=== PATIENT | male | born 1945 | race Hispanic/Latino ===

== ENCOUNTER 2018-09-06 07:39 | Emergency (ER) | payer OTHER ==
[2018-09-06] MEDS ORDERED: IPRATROPIUM BROM 0.5MG/2.5ML ONE (08:06)
[2018-09-06] MEDS ORDERED: predniSONE 20 MG TAB ONE (08:06)
[2018-09-06] MEDS ORDERED: ALBUTEROL 2.5 MG/3 ML NEB SOL ONE (08:06)
[2018-09-06 08:25] LABS: Basophils % 0.4 % (0-1.3); Eosinophils % 1.7 % (0-4.4); Lymphocytes % 24.7 % (15.3-44.8); MPV 9.2 fL (7.6-11.3); Monocytes % 11.8 % (3.3-12.3); Protime INR 1.23; RBC Red Blood Cell Count 5.21 M/uL (4.33-5.43)
[2018-09-06 08:38] LABS: ALT/SGPT 73 U/L (12-78); AST/SGOT 46 U/L (15-37); Albumin 3.5 g/dL (3.4-5.0); Alkaline Phosphatase 69 U/L (45-117); BUN Blood Urea Nitrogen 9 mg/dL (7-18); Bicarbonate 29 mmol/L (21-32); Bilirubin Direct 0.3 mg/dL (0-0.2); Bilirubin Total 0.9 mg/dL (0.2-1.0); Glucose Level 154 mg/dL (74-106); Magnesium 1.8 mg/dL (1.8-2.4); NT PRO-BNP 717 pg/mL (<125); Protein, Total 8.1 g/dL (6.4-8.2); Sodium Level 139 mmol/L (136-145); Troponin (Emerg Dept Use Only) < 0.02 ng/mL (0.0-0.045)
[2018-09-06] MEDS ORDERED: HYDROCODONE/CHLORPHEN 5 ML/OSYR ONE (09:59)
[2018-09-06] MEDS ORDERED: LEVALBUTEROL 1.25 MG/3 ML NEB ONE (09:59)
[2018-09-06] MEDS ORDERED: CEFTRIAXONE/SWI 1gm 1 GM/10 ML SYR ONE (10:08)
--- NOTE | 2018-09-06 10:16 | ER ---
Nurse's Notes [facility] Name: Juan Nelson Age: 73 yrs Sex: Male : 1945 Arrival Date: 09/06/2018 Time: 07:40 Bed 8 Private MD: Panda Whitmore E Diagnosis: Chronic obstructive pulmonary disease with (acute) exacerbation Presentation: 09/06 07:50 Presenting complaint: Productive cough and SOB x 3-[address] Whitmore yesterday, hb on Zithromax and prednisone day 2 for bronchitis. Transition of care: patient was not received from another setting of care. Onset of symptoms was September 06, 2018. Risk Assessment: Do you want to hurt yourself or someone else? Patient reports no desire to harm self or others. Care prior to arrival: None. 07:50 Method Of Arrival: Ambulatory hb 07:50 Acuity: KRISTEL 2 hb 07:50 Initial Sepsis Screen: Does the patient meet any 2 criteria? RR > 20 per min. Yes Does sv the patient have a suspected source of infection? No. Patient's initial sepsis screen is negative. Triage Assessment: 07:50 Respiratory: the patient has moderate shortness of breath. sv Historical: - Allergies: 07:52 No Known Drug Allergies; hb - Home Meds: 07:52 amlodipine 5 mg tab 1 tab once daily [Active]; carvedilol 25 mg Oral tab 1 tab hb [Active]; levothyroxine 100 mcg tab 1 tab once daily [Active]; metformin 500 mg Oral tab [Active]; omeprazole 20 mg Oral cpDR 1 cap once daily [Active]; paroxetine HCl 20 mg Oral tab [Active]; Ventolin Rotahaler/Rotacaps Inhl [Active]; warfarin 5 mg Oral tab [Active]; - PMHx: 07:52 Hypothyroidism; Diabetes - NIDDM; hb - PSHx: 07:52 Cholecystectomy; elbow surgery; right eye cataract; hb - Immunization history:: Adult Immunizations up to date. - Social history:: Smoking status: Patient uses tobacco products, smokes one-half pack cigarettes per day. - Ebola Screening: : No symptoms or risks identified at this time. Screenin:52 Abuse screen: Denies threats or abuse. Denies injuries from another. Nutritional hb screening: No deficits noted. Tuberculosis screening: No symptoms or risk factors identified. Fall Risk None identified. Assessment: 07:50 General: Appears in no apparent distress. uncomfortable, well developed, Behavior is sv calm, cooperative, appropriate for age. Pain: Denies pain. Neuro: Level of Consciousness is awake, alert, obeys commands, Oriented to person, place, time, situation, Moves all extremities. Full function Gait is steady. Respiratory: Airway is patent Respiratory effort is even, unlabored, Respiratory pattern is symmetrical, tachypnea Breath sounds with wheezes bilaterally. Derm: Skin is pink, warm \T\ dry. 08:23 Reassessment: Patient appears in no apparent distress at this time. Patient and/or sv family updated on plan of care and expected duration. Pain level reassessed. Patient is alert, oriented x 3, equal unlabored respirations, skin warm/dry/pink. Patient states symptoms have improved. Cardiovascular: Rhythm is atrial fibrillation. Respiratory: Airway is patent Respiratory effort is even, unlabored, Respiratory pattern is symmetrical, tachypnea Breath sounds with wheezes bilaterally. 09:19 Reassessment: Patient appears in no apparent distress at this time. Patient and/or sv family updated on plan of care and expected duration. Pain level reassessed. Patient is alert, oriented x 3, equal unlabored respirations, skin warm/dry/pink. Patient states feeling better. Patient states symptoms have improved. 10:24 Reassessment: Patient appears in no apparent distress at this time. Patient and/or sv family updated on plan of care and expected duration. Pain level reassessed. Patient is alert, oriented x 3, equal unlabored respirations, skin warm/dry/pink. Patient states feeling better. Patient states symptoms have improved. Vital Signs: 07:49 BP 143 / 73; Pulse 85; Resp 32; Pulse Ox 93% on R/A; Pain 0/10; hb 08:05 Temp 98(O); sv 09:19 BP 135 / 80; Pulse 64 MON; Resp 24; Pulse Ox 93% on R/A; sv 10:24 BP 133 / 77; Pulse 65; Resp 22; Pulse Ox 95% on R/A; sv 09:19 A fib sv ED Course: 07:40 Patient arrived in ED. sb2 07:41 Panda Whitmore MD is Private Physician. sb2 07:43 [facility] pm1 07:43 Donny Stein MD is Attending Physician. pm1 07:51 Triage completed. hb 07:52 Agueda Hernandez, RN is Primary Nurse. sv 07:52 Arm band placed on. hb 07:52 Patient has correct armband on for positive identification. Placed in gown. Bed in low hb position. Call light in reach. Side rails up X 1. 08:14 XRAY Chest (1 view) In Process Unspecified. EDMS 08:14 Flu Sent. ds4 08:14 Blood Culture Adult (2) Sent. ds4 08:14 Basic Metabolic Panel Sent. ds4 08:14 Troponin (emerg Dept Use Only) Sent. ds4 08:14 CBC with Diff Sent. ds4 08:14 LFT's Sent. ds4 08:14 Magnesium Sent. ds4 08:14 NT PRO-BNP Sent. ds4 08:15 PT-INR Sent. ds4 08:26 EKG done, by ED staff, reviewed by Donny Stein MD. em1 09:20 Awaiting radiology results. sv 10:15 Panda Whitmore MD is Referral Physician. pm1 10:25 No provider procedures requiring assistance completed. IV discontinued, intact, sv bleeding controlled, No redness/swelling at site. Pressure dressing applied. Administered Medications: 08:01 Drug: predniSONE 60 mg Route: PO; sv 08:22 Follow up: Response: No adverse reaction sv 08:02 Drug: Albuterol - atroVENT (3:1) (2.5 mg - 0.5 mg) 3 ml Route: Nebulizer; sv 08:22 Follow up: Response: No adverse reaction; Marked relief of symptoms sv 09:53 Drug: Tussionex Pennkinetic ER 5 ml Route: PO; sv 10:15 Follow up: Response: No adverse reaction sv 09:53 Drug: Xopenex 1.25 mg Route: Inhalation; sv 09:56 Drug: Rocephin 1 grams Route: IV; Rate: calculated rate; Site: left antecubital; sv 09:59 Follow up: Response: No adverse reaction; IV Status: Completed infusion; IV Intake: 10mlsv Intake: 09:59 IV: 10ml; Total: 10ml. sv Outcome: 10:16 Discharge ordered by . pm1 10:24 Discharged to home via wheelchair, with family. sv 10:24 Condition: stable 10:24 Condition: improved 10:24 Discharge instructions given to patient, family, Instructed on discharge instructions, follow up and referral plans. medication usage, Demonstrated understanding of instructions, follow-up care, medications, Prescriptions given X 2. 10:25 Patient left the ED. sv Signatures: Dispatcher [employer] EDAgueda Sosa RN RN sv Martinez, Eric em1 Marc Cervantes ds4 Silvano Beck NP [employer] pm1 Clarissa Marin RN RN hb Billeau, Sheri sb2 Corrections: (The following items were deleted from the chart) 07:53 07:50 Social history: Smoking status: Patient/guardian denies using tobacco, hb elida
--- NOTE | 2018-09-06 10:16 | EDPHYS ---
Physician Documentation [facility] Name: Juan Nelson Age: 73 yrs Sex: Male : 1945 Arrival Date: 09/06/2018 Time: 07:40 Bed 8 Private MD: Panda Whitmore E ED Physician Donny Stein HPI: 09/06 08:12 This 73 yrs old Male presents to ER via Ambulatory with complaints of pm1 Breathing Difficulty - BRONCHITIS. 08:12 The patient has shortness of breath at rest. Onset: The symptoms/episode began/occurred pm1 4 day(s) ago. Duration: The symptoms are continuous. The patient's shortness of breath is aggravated by nothing, is alleviated by nothing. Associated signs and symptoms: Pertinent positives: productive cough, Pertinent negatives: chest pain, fever, nausea, vomiting, Chills. Severity of symptoms: in the emergency department the symptoms are unchanged. The patient has not experienced similar symptoms in the past. The patient has been recently seen by a physician: the patient's primary care provider, yesterday, with similar presenting complaints, and apparently given a diagnosis of Bronchitis, was given a prescription for antibiotics, was given a prescription for prednisone 5 mg . Historical: - Allergies: 07:52 No Known Drug Allergies; hb - Home Meds: 07:52 amlodipine 5 mg tab 1 tab once daily [Active]; carvedilol 25 mg Oral tab 1 tab hb [Active]; levothyroxine 100 mcg tab 1 tab once daily [Active]; metformin 500 mg Oral tab [Active]; omeprazole 20 mg Oral cpDR 1 cap once daily [Active]; paroxetine HCl 20 mg Oral tab [Active]; Ventolin Rotahaler/Rotacaps Inhl [Active]; warfarin 5 mg Oral tab [Active]; - PMHx: 07:52 Hypothyroidism; Diabetes - NIDDM; hb - PSHx: 07:52 Cholecystectomy; elbow surgery; right eye cataract; hb - Immunization history:: Adult Immunizations up to date. - Social history:: Smoking status: Patient uses tobacco products, smokes one-half pack cigarettes per day. - Ebola Screening: : No symptoms or risks identified at this time. ROS: 08:12 Constitutional: Negative for fever, chills, and weight loss, Eyes: Negative for injury, pm1 pain, redness, and discharge, ENT: Negative for injury, pain, and discharge, Neck: Negative for injury, pain, and swelling, Cardiovascular: Negative for chest pain, palpitations, and edema. 08:12 Abdomen/GI: Negative for abdominal pain, nausea, vomiting, diarrhea, and constipation, Back: Negative for injury and pain, : Negative for injury, bleeding, discharge, and swelling, MS/Extremity: Negative for injury and deformity, Skin: Negative for injury, rash, and discoloration, Neuro: Negative for headache, weakness, numbness, tingling, and seizure. 08:12 Respiratory: Positive for cough, with yellow sputum, shortness of breath. Exam: 08:12 Constitutional: This is a well developed, well nourished patient who is awake, alert, pm1 and in no acute distress. Head/Face: Normocephalic, atraumatic. Eyes: Pupils equal round and reactive to light, extra-ocular motions intact. Lids and lashes normal. Conjunctiva and sclera are non-icteric and not injected. Cornea within normal limits. Periorbital areas with no swelling, redness, or edema. ENT: Nares patent. No nasal discharge, no septal abnormalities noted. Tympanic membranes are normal and external auditory canals are clear. Oropharynx with no redness, swelling, or masses, exudates, or evidence of obstruction, uvula midline. Mucous membranes moist. Neck: Trachea midline, no thyromegaly or masses palpated, and no cervical lymphadenopathy. Supple, full range of motion without nuchal rigidity, or vertebral point tenderness. No Meningismus. Chest/axilla: Normal chest wall appearance and motion. Nontender with no deformity. No lesions are appreciated. Cardiovascular: Regular rate and rhythm with a normal S1 and S2. No gallops, murmurs, or rubs. Normal PMI, no JVD. No pulse deficits. 08:12 Abdomen/GI: Soft, non-tender, with normal bowel sounds. No distension or tympany. No guarding or rebound. No evidence of tenderness throughout. Back: No spinal tenderness. No costovertebral tenderness. Full range of motion. Skin: Warm, dry with normal turgor. Normal color with no rashes, no lesions, and no evidence of cellulitis. MS/ Extremity: Pulses equal, no cyanosis. Neurovascular intact. Full, normal range of motion. 08:12 Respiratory: the patient does not display signs of respiratory distress, Respirations: normal, Breath sounds: wheezing: is heard diffusely. 08:12 Neuro: Orientation: is normal, Motor: is normal, moves all fours. Vital Signs: 07:49 BP 143 / 73; Pulse 85; Resp 32; Pulse Ox 93% on R/A; Pain 0/10; hb 08:05 Temp 98(O); sv 09:19 BP 135 / 80; Pulse 64 MON; Resp 24; Pulse Ox 93% on R/A; sv 10:24 BP 133 / 77; Pulse 65; Resp 22; Pulse Ox 95% on R/A; sv 09:19 A fib sv MDM: 07:43 Patient medically screened. pm1 08:19 Data reviewed: vital signs. pm1 09:46 Counseling: I had a detailed discussion with the patient and/or guardian regarding: the pm1 historical points, exam findings, and any diagnostic results supporting the discharge/admit diagnosis, lab results, radiology results, the need for outpatient follow up, to return to the emergency department if symptoms worsen or persist or if there are any questions or concerns that arise at home. 09/06 07:51 Order name: Basic Metabolic Panel; Complete Time: 08:42 pm09/06 07:51 Order name: CBC with Diff; Complete Time: 08:42 pm09/06 07:51 Order name: LFT's; Complete Time: 08:42 pm09/06 07:51 Order name: Magnesium; Complete Time: 08:42 pm09/06 07:51 Order name: NT PRO-BNP; Complete Time: 08:42 pm09/06 07:51 Order name: PT-INR; Complete Time: 08:42 pm09/06 07:51 Order name: Troponin (emerg Dept Use Only); Complete Time: 08:42 pm09/06 07:51 Order name: XRAY Chest (1 view) pm09/06 07:53 Order name: Blood Culture Adult (2) pm09/06 07:53 Order name: Flu; Complete Time: 08:42 pm1 09/06 07:51 Order name: EKG; Complete Time: 07:52 pm09/06 07:51 Order name: Cardiac monitoring; Complete Time: 08:22 pm09/06 07:51 Order name: EKG - Nurse/Tech; Complete Time: 08:14 pm1 09/06 07:51 Order name: IV Saline Lock; Complete Time: 08:14 pm1 09/06 07:51 Order name: Labs collected and sent; Complete Time: 08:14 pm1 09/06 07:51 Order name: O2 Per Protocol; Complete Time: 08:02 pm1 09/06 07:51 Order name: O2 Sat Monitoring; Complete Time: 08:02 pm1 Administered Medications: 08:01 Drug: predniSONE 60 mg Route: PO; sv 08:22 Follow up: Response: No adverse reaction sv 08:02 Drug: Albuterol - atroVENT (3:1) (2.5 mg - 0.5 mg) 3 ml Route: Nebulizer; sv 08:22 Follow up: Response: No adverse reaction; Marked relief of symptoms sv 09:53 Drug: Tussionex Pennkinetic ER 5 ml Route: PO; sv 10:15 Follow up: Response: No adverse reaction sv 09:53 Drug: Xopenex 1.25 mg Route: Inhalation; sv 09:56 Drug: Rocephin 1 grams Route: IV; Rate: calculated rate; Site: left antecubital; sv 09:59 Follow up: Response: No adverse reaction; IV Status: Completed infusion; IV Intake: 10mlsv Disposition: 11:21 Co-signature as Attending Physician, Donny Stein MD. rn Disposition: 09/06/18 10:16 Discharged to Home. Impression: Chronic obstructive pulmonary disease with (acute) exacerbation. - Condition is Stable. - Discharge Instructions: How to Use an Inhaler, Chronic Obstructive Pulmonary Disease Exacerbation. - Prescriptions for Prednisone 20 mg Oral Tablet - take 2 tablet by ORAL route once daily for 5 days; 10 tablet. Guaifenesin AC 10- 100 mg/5 mL Oral Liquid - take 10 milliliter by ORAL route every 4 hours As needed; 240 milliliter. - Medication Reconciliation Form, Thank You Letter, Antibiotic Education, Prescription Opioid Use form. - Follow up: Emergency Department; When: As needed; Reason: Worsening of condition. Follow up: Panda Whitmore MD; When: 2 - 3 days; Reason: Recheck today's complaints, Continuance of care, Re-evaluation by your physician. - Problem is new. - Symptoms have improved. Signatures: Dispatcher [employer] EDMS Agueda Hernandez RN RN sv Donny Stein MD MD rn Marinas, Patrick, [facility] [employer] [employer] pm1 Clarissa Marin RN RN hb Corrections: (The following items were deleted from the chart) 07:53 07:50 Social history: Smoking status: Patient/guardian denies using tobacco, hb hb 08:05 07:52 Chest Single View ordered. [facility] 10:25 10:16 09/06/2018 10:16 Discharged to Home. Impression: Chronic obstructive pulmonary sv disease with (acute) exacerbation. Condition is Stable. Forms are Medication Reconciliation Form, Thank You Letter, Antibiotic Education, Prescription Opioid Use. Follow up: Emergency Department; When: As needed; Reason: Worsening of condition. Follow up: Panda Whitmore; When: 2 - 3 days; Reason: Recheck today's complaints, Continuance of care, Re-evaluation by your physician. Problem is new. Symptoms have improved. pm1
[2018-09-06 10:32] VITALS: TEMP 98
[2018-09-06 10:35] VITALS: BP 133/77; O2SAT 95
--- NOTE | 2018-09-06 10:49 | RAD REPORT ---
EXAM DESCRIPTION: [place] Single View09/06/2018 8:16 am CLINICAL HISTORY: Cough COMPARISON: 2017 FINDINGS: The lungs appear clear of acute infiltrate. The heart is markedly enlarged IMPRESSION: No acute abnormalities displayed
--- NOTE | 2018-09-06 14:11 | EKG ---
Test Date: 2018-09-06 Test Time: 08:20:25 Welcome Hostess: RYAN MEASUREMENT RESULTS: Intervals: Rate: 74 WI: QRSD: 94 QT: 384 QTc: 426 [place]: P: WI: QRS: 61 T: -35 INTERPRETIVE STATEMENTS: Atrial fibrillation with premature ventricular or aberrantly conducted complexes Nonspecific ST and T wave abnormality, probably digitalis effect Abnormal ECG Compared to ECG 05/21/2017 03:50:29 Ventricular premature complex(es) now present ST (T wave) deviation now present Electronically Signed On 09-06-18 14:11:01 [employer]AMP [employer] SEW[employer] by eJr Rae
== END 2018-09-06 10:25 | disposition home or self-care (01) ==
LOC: ER 07:39
DX: J44.1 Chronic obstructive pulmonary disease with (acute) exacerbation (principal); I48.91 Unspecified atrial fibrillation; R94.31 Abnormal electrocardiogram [ECG] [EKG]; E11.9 Type 2 diabetes mellitus without complications; E03.9 Hypothyroidism, unspecified; F17.210 Nicotine dependence, cigarettes, uncomplicated; Z79.84 Long term (current) use of oral hypoglycemic drugs; Z79.01 Long term (current) use of anticoagulants; Z79.899 Other long term (current) drug therapy
CPT/HCPCS: 36415; 71045; 80048; 80076; 83735; 83880; 84484; 85025; 85610; 87040 ×2; 87804 ×2; 93005; 94640; 96374; 99285; J0696; J7512

== ENCOUNTER 2018-09-07 14:40 | Inpatient (IN) | payer OTHER ==
[2018-09-07] MEDS ORDERED: ALBUTEROL 2.5 MG/3 ML NEB SOL ONE (15:29)
[2018-09-07] MEDS ORDERED: FUROSEMIDE 20 MG/ 2ML VIAL ONE (15:29)
[2018-09-07] MEDS ORDERED: IPRATROPIUM BROM 0.5MG/2.5ML ONE (15:30)
[2018-09-07] MEDS ORDERED: NA CHLORIDE 0.9% 1,000 ML ONE (15:30)
[2018-09-07 16:06] LABS: Absolute Lymphocytes (CBC) 1.3 K/uL (0.7-4.9); Absolute Monocytes 0.9 K/uL (0.1-1.3); Absolute Neutrophil 5.3 K/uL (1.8-8.0); Basophils % 0.3 % (0-1.3); Eosinophils % 0.3 % (0-4.4); Hematocrit 47.1 % (39.6-49.0); Lymphocytes % 17.2 % (15.3-44.8); MPV 9.1 fL (7.6-11.3); Monocytes % 11.6 % (3.3-12.3); RBC Red Blood Cell Count 4.95 M/uL (4.33-5.43)
--- NOTE | 2018-09-07 16:08 | EDPHYS ---
Physician Documentation [facility] Name: Juan Nelson Age: 73 yrs Sex: Male : 1945 Arrival Date: 09/07/2018 Time: 14:42 Bed 26 Private MD: Panda Whitmore E ED Physician Donny Stein HPI: 09/07 15:38 This 73 yrs old Male presents to ER via Ambulatory with complaints of Cough, snw Shortness Of Breath. 15:38 The patient or guardian reports cough, difficulty breathing. Onset: The snw symptoms/episode began/occurred gradually, 3 day(s) ago, and became worse and became persistent. Severity of symptoms: At their worst the symptoms were moderate. Associated signs and symptoms: Pertinent positives: chest pain. The patient has experienced similar episodes in the past. The patient has been recently seen at the [facility] Emergency Department, yesterday. smokes 1 ppd. Historical: - Allergies: 15:08 No Known Allergies; hb - Home Meds: 17:48 metformin 500 mg oral tab [Active]; la1 - PMHx: 17:07 Diabetes - NIDDM; Hypothyroidism; la1 17:48 COPD; la1 - Immunization history:: Adult Immunizations up to date. - Social history:: Smoking status: Patient uses tobacco products, smokes one pack cigarettes per day. - Ebola Screening: : No symptoms or risks identified at this time. ROS: 15:38 Eyes: Negative for injury, pain, redness, and discharge, ENT: Negative for injury, snw pain, and discharge, Neck: Negative for injury, pain, and swelling, Cardiovascular: Negative for chest pain, palpitations, and edema. 15:38 Back: Negative for injury and pain, : Negative for injury, bleeding, discharge, and swelling, MS/Extremity: Negative for injury and deformity, Skin: Negative for injury, rash, and discoloration, Neuro: Negative for headache, weakness, numbness, tingling, and seizure. 15:38 Constitutional: Positive for malaise. 15:38 Respiratory: Positive for cough, shortness of breath. 15:38 Abdomen/GI: Positive for abdominal pain, of the epigastric area. Exam: 15:35 Head/Face: Normocephalic, atraumatic. Eyes: Pupils equal round and reactive to light, snw extra-ocular motions intact. Lids and lashes normal. Conjunctiva and sclera are non-icteric and not injected. Cornea within normal limits. Periorbital areas with no swelling, redness, or edema. ENT: Nares patent. No nasal discharge, no septal abnormalities noted. Tympanic membranes are normal and external auditory canals are clear. Oropharynx with no redness, swelling, or masses, exudates, or evidence of obstruction, uvula midline. Mucous membranes moist. Neck: Trachea midline, no thyromegaly or masses palpated, and no cervical lymphadenopathy. Supple, full range of motion without nuchal rigidity, or vertebral point tenderness. No Meningismus. Chest/axilla: Normal chest wall appearance and motion. Nontender with no deformity. No lesions are appreciated. 15:35 Back: No spinal tenderness. No costovertebral tenderness. Full range of motion. MS/ Extremity: Pulses equal, no cyanosis. Neurovascular intact. Full, normal range of motion. Neuro: Awake and alert, GCS 15, oriented to person, place, time, and situation. Cranial nerves II-XII grossly intact. Motor strength 5/5 in all extremities. Sensory grossly intact. Cerebellar exam normal. Normal gait. 15:35 Constitutional: The patient appears alert, anxious, uncomfortable, erythematous 15:35 Cardiovascular: Rate: normal, Rhythm: regular, Edema: is not appreciated. 15:35 Respiratory: mild respiratory distress is noted, moderate respiratory distress is noted, Respirations: intercostal retractions, shallow respirations, tachypnea, Breath sounds: wheezing: that is moderate, that is severe, is heard diffusely. 15:35 Abdomen/GI: Inspection: obese tense, Bowel sounds: diminished, Palpation: mild abdominal tenderness, in the epigastric area. 15:35 Skin: Appearance: flushing, noted on the face. Vital Signs: 15:07 BP 126 / 71; Pulse 68; Resp 24; Temp 97.8; Pulse Ox 91% on R/A; Pain 9/10; hb 15:50 BP 142 / 76; Pulse 81; Resp 30; Pulse Ox 92% on R/A; la1 16:32 BP 140 / 69; Pulse 71; Resp 18; Pulse Ox 100% on BiPAP; la1 17:09 Pulse 72; Resp 16; Pulse Ox 100% on BiPAP; la1 17:11 BP 132 / 73; Pulse 74; Resp 18; Pulse Ox 100% on BiPAP; la1 MDM: 15:10 Patient medically screened. snw 15:37 Data reviewed: vital signs, nurses notes. Data interpreted: Pulse oximetry: on room air snw is 91 %. Interpretation: hypoxia. Plan: will initiate a nebulizer treatment. ED course: PCP is Dr. Whitmore. 09/07 15:21 Order name: Basic Metabolic Panel; Complete Time: 16:33 w 09/07 15:21 Order name: Blood Culture Adult (2) w 09/07 15:21 Order name: CBC with Diff; Complete Time: 16:08 w 09/07 15:21 Order name: Ckmb; Complete Time: 16:33 w 09/07 15:21 Order name: CPK; Complete Time: 16:33 w 09/07 15:21 Order name: Lactate; Complete Time: 16:33 w 09/07 15:21 Order name: Procalcitonin; Complete Time: 16:50 09/07 15:21 Order name: Protime (+inr); Complete Time: 16:13 w 09/07 15:21 Order name: Ptt, Activated; Complete Time: 16:13 w 09/07 15:21 Order name: Troponin (emerg Dept Use Only); Complete Time: 16:33 w 09/07 15:21 Order name: Chest Single View XRAY; Complete Time: 16:15 09/07 15:52 Order name: BIPAP 09/07 15:21 Order name: Accucheck; Complete Time: 16:28 09/07 15:21 Order name: Cardiac monitoring; Complete Time: 15:38 09/07 15:21 Order name: EKG - Nurse/Tech; Complete Time: 16:28 w 09/07 15:21 Order name: IV Saline Lock - Large Bore; Complete Time: 15:38 09/07 15:21 Order name: Labs collected and sent; Complete Time: 15:38 09/07 15:21 Order name: O2 Per Protocol; Complete Time: 15:38 09/07 15:21 Order name: O2 Sat Monitoring; Complete Time: 15:38 snw Administered Medications: 15:37 Drug: NS 0.9% 1000 ml Route: IV; Rate: 70 ml/hr; Site: right antecubital; la1 17:09 Follow up: IV Status: Completed infusion la1 15:37 Drug: Lasix 20 mg Route: IVP; Site: right antecubital; la1 17:08 Follow up: Response: Adverse reaction, Physician notified la1 15:37 Drug: Albuterol - atroVENT (3:1) (2.5 mg - 0.5 mg) 3 ml Route: Nebulizer; la1 17:08 Follow up: Response: No adverse reaction; Wheezing diminished la1 17:56 Not Given (Other Intervention Used): morphine 4 mg IVP once la1 Disposition: 18:38 Co-signature as Attending Physician, Donny Stein MD. rn Disposition: 09/07/18 16:08 Hospitalization ordered by Jaswant Marr for Inpatient Admission. Preliminary diagnosis are Chronic obstructive pulmonary disease with (acute) exacerbation, Cardiomegaly. - Bed requested for Telemetry/MedSurg (Inpatient). - Status is Inpatient Admission. la1 - Condition is Stable. - Problem is chronic. - Symptoms have worsened. UTI on Admission? No Signatures: Dispatcher [employer] EDNM Christianne Ventura, FOOD ORDER DELIVERY RUNNER-C FOOD ORDER DELIVERY RUNNER-Csnw Donny Stein MD MD rn Attema, Lee, RN RN la Clarissa Marin, Rosamaria Gonzalez RN, MELVIN RN df Corrections: (The following items were deleted from the chart) 16:06 15:23 Influenza Screen (A \T\ B)+[id number] ordered. EDNM EDNM 16:49 16:08 Hospitalization Ordered by Jaswant Marr MD for Inpatient Admission. Preliminary df diagnosis is Chronic obstructive pulmonary disease with (acute) exacerbation; Cardiomegaly. Bed requested for Telemetry/MedSurg (Inpatient). Status is Inpatient Admission. Condition is Stable. Problem is chronic. Symptoms have worsened. UTI on Admission? No. snw 18:08 16:49 09/07/2018 16:08 Hospitalization Ordered by Jaswant Marr MD for Inpatient la1 Admission. Preliminary diagnosis is Chronic obstructive pulmonary disease with (acute) exacerbation; Cardiomegaly. Bed requested for Telemetry/MedSurg (Inpatient). Status is Inpatient Admission. Condition is Stable. Problem is chronic. Symptoms have worsened. UTI on Admission? No. df
--- NOTE | 2018-09-07 16:08 | ER ---
Nurse's Notes [facility] Name: Juan Nelson Age: 73 yrs Sex: Male : 1945 Arrival Date: 09/07/2018 Time: 14:42 Bed 26 Private MD: Panda Whitmore E Diagnosis: Chronic obstructive pulmonary disease with (acute) exacerbation;Cardiomegaly Presentation: 09/07 15:05 Presenting complaint: SOB and productive cough x 3-4 days. Pt was seen in ED for same hb s/s yesterday, reports SOB is worse. Transition of care: patient was not received from another setting of care. Onset of symptoms was September 07, 2018. Risk Assessment: Do you want to hurt yourself or someone else? Patient reports no desire to harm self or others. 15:05 Method Of Arrival: Ambulatory hb 15:05 Acuity: KRISTEL 2 hb 15:30 Initial Sepsis Screen: Does the patient meet any 2 criteria? RR > 20 per min. Does the la1 patient have a suspected source of infection? Yes: Productive cough/pneumonia. 15:40 Care prior to arrival: None. la1 Triage Assessment: 18:08 Respiratory: Onset: The symptoms/episode began/occurred. la1 Historical: - Allergies: 15:08 No Known Allergies; hb - Home Meds: 17:48 metformin 500 mg oral tab [Active]; la1 - PMHx: 17:07 Diabetes - NIDDM; Hypothyroidism; la1 17:48 COPD; la1 - Immunization history:: Adult Immunizations up to date. - Social history:: Smoking status: Patient uses tobacco products, smokes one pack cigarettes per day. - Ebola Screening: : No symptoms or risks identified at this time. Screenin:40 Abuse screen: Denies threats or abuse. Nutritional screening: No deficits noted. la1 Tuberculosis screening: No symptoms or risk factors identified. Fall Risk None identified. Assessment: 15:39 General: Appears uncomfortable, Behavior is calm, cooperative. Pain: Denies pain. la1 Neuro: Level of Consciousness is awake, alert, obeys commands, Oriented to person, place, time, situation. Cardiovascular: Capillary refill < 3 seconds. Cardiovascular: Heart tones S1 S2 present Rhythm is irregular. Respiratory: Airway is patent Respiratory effort is even, unlabored, Respiratory pattern is regular, symmetrical, Breath sounds are clear bilaterally. GI: No signs and/or symptoms were reported involving the gastrointestinal system. Abdomen is obese. : No signs and/or symptoms were reported regarding the genitourinary system. Vital Signs: 15:07 BP 126 / 71; Pulse 68; Resp 24; Temp 97.8; Pulse Ox 91% on R/A; Pain 9/10; hb 15:50 BP 142 / 76; Pulse 81; Resp 30; Pulse Ox 92% on R/A; la1 16:32 BP 140 / 69; Pulse 71; Resp 18; Pulse Ox 100% on BiPAP; la1 17:09 Pulse 72; Resp 16; Pulse Ox 100% on BiPAP; la1 17:11 BP 132 / 73; Pulse 74; Resp 18; Pulse Ox 100% on BiPAP; la1 ED Course: 14:42 Patient arrived in ED. sb2 14:43 Panda Whitmore MD is Private Physician. sb2 15:07 Triage completed. hb 15:07 Arm band placed on. hb 15:10 Christianne Ventura FNP-C is [facility]. snw 15:10 Donny Stein MD is Attending Physician. snw 15:10 Devaughn Sorto RN is Primary Nurse. la1 15:38 No provider procedures requiring assistance completed. Inserted saline lock: 20 gauge la1 in right antecubital area, using aseptic technique. Blood collected. 15:40 Placed in gown. Bed in low position. Call light in reach. liquor maker on. Pulse ox la1 on. NIBP on. 15:44 X-ray completed. Portable x-ray completed in exam room. Patient tolerated procedure sg4 well. 15:51 Chest Single View XRAY In Process Unspecified. EDMS 16:07 Jaswant Marr MD is Hospitalizing Provider. snw 18:07 Patient admitted, IV remains in place. la1 Administered Medications: 15:37 Drug: NS 0.9% 1000 ml Route: IV; Rate: 70 ml/hr; Site: right antecubital; la1 17:09 Follow up: IV Status: Completed infusion la1 15:37 Drug: Lasix 20 mg Route: IVP; Site: right antecubital; la1 17:08 Follow up: Response: Adverse reaction, Physician notified la1 15:37 Drug: Albuterol - atroVENT (3:1) (2.5 mg - 0.5 mg) 3 ml Route: Nebulizer; la1 17:08 Follow up: Response: No adverse reaction; Wheezing diminished la1 17:56 Not Given (Other Intervention Used): morphine 4 mg IVP once la1 Outcome: 16:08 Decision to Hospitalize by Provider. snw 18:07 Admitted to Med/surg accompanied by tech, via stretcher, room 232, with oxygen, with la1 chart. 18:07 Condition: stable 18:07 Instructed on the need for admit. 18:08 Patient left the ED. la1 Signatures: Dispatcher [employer] EDMS Christianne Ventura, WORK DISTRIBUTOR-C WORK DISTRIBUTOR-Csnw Devaughn Sorto RN RN la1 Clarissa Marin RN RN Ileana Garcia sb2 Shy Horvath sg4 Corrections: (The following items were deleted from the chart) 17:11 17:11 BP 132 / 73; Pulse 74bpm; Resp 18bpm; Pulse Ox 100% RA; la1 la1
[2018-09-07 16:10] LABS: Protime INR 1.38
--- NOTE | 2018-09-07 16:14 | RAD REPORT ---
EXAM DESCRIPTION: RAD - Chest Single View - 09/07/2018 3:51 pm CLINICAL HISTORY: Cough, shortness of breath COMPARISON: September 06 TECHNIQUE: AP portable chest image was obtained 1538 hours . FINDINGS: No new lung parenchymal process. Lung markings remain prominent. Pronounced aligns with th e cardiac silhouette has not changed. Central vasculature remains mildly prominent. No measurable ple ural effusion and no pneumothorax. No acute bony abnormality seen. No acute aortic findings suspected . IMPRESSION: Pronounced cardiomegaly with mild vascular engorgement and prominent interstitial patter n. Chest is not significantly different from prior day comparison.
[2018-09-07 16:21] LABS: BUN Blood Urea Nitrogen 15 mg/dL (7-18); Bicarbonate 30 mmol/L (21-32); CKMB Creatine Kinase MB 2.8 ng/mL (0.3-3.6); Creatine Phosphokinase 97 U/L (39-308); Glucose Level 317 mg/dL (74-106); Potassium 4.5 mmol/L (3.5-5.1); Sodium Level 137 mmol/L (136-145); Troponin (Emerg Dept Use Only) < 0.02 ng/mL (0.0-0.045)
[2018-09-07 18:22] VITALS: BMI 34.6
[2018-09-07] MEDS ORDERED: ACETAMINOPHEN 500 MG TAB PO PRN (18:28)
[2018-09-07] MEDS ORDERED: ONDANSETRON 4 MG/2 ML VIAL IV PRN (18:28)
[2018-09-07] MEDS: ALBUTEROL 2.5 MG/3 ML NEB SOL NEB SCH ×2 (20:00→20:42)
[2018-09-07] MEDS ORDERED: D50W 25 GM/50 ML SYRINGE IV PRN (20:09)
[2018-09-07] MEDS ORDERED: GLUCAGON 1 MG/VIAL IM PRN (20:09)
[2018-09-07] MEDS: IPRATROPIUM BROM 0.5MG/2.5ML NEB PRN (20:43)
[2018-09-07] MEDS: INSULIN -REGULAR HUMAN 50 UNIT/0.5 ML ML SQ SCH (21:00)
[2018-09-07] MEDS: PANTOPRAZOLE 40MG TABLET PO SCH (21:41)
[2018-09-07] MEDS: CARVEDILOL 25 MG TAB PO SCH (21:41)
[2018-09-07] MEDS: METHYLPREDNISOLONE 40 MG INJ IV SCH (21:41)
[2018-09-08] MEDS: ALBUTEROL 2.5 MG/3 ML NEB SOL NEB SCH ×6 (00:05→20:20)
[2018-09-08] MEDS: IPRATROPIUM BROM 0.5MG/2.5ML NEB PRN ×3 (00:05→08:43)
[2018-09-08] MEDS: METHYLPREDNISOLONE 40 MG INJ IV SCH ×3 (01:19→20:58)
--- NOTE | 2018-09-08 05:23 | HP ---
Date of Admission: 09/07/2018 Code Status: Full. Chief Complaint: Shortness of breath. History Of Present Illness: The patient is a 73-year-old male with past medical history of COPD; atr ial fibrillation, on Coumadin; who was in his usual state of health until 3 days prior to admission w hen the patient had a slow onset of worsening shortness of breath. He did report some cough with no significant sputum production. Denied any nausea, vomiting, fever, or chills. Did report some pleur itic-type chest pain. It should be noted that the patient is a daily smoker. The patient's symptoms are constant, moderate, and progressively worsening. Therefore, he came into the ER for further carroll luation. Upon arrival, his workup showed a normal white blood cell count. His chest x-ray showed pr onounced cardiomegaly with mild vascular engorgement and prominent interstitial pattern, not signific antly different from prior day comparison, he had been to the ER the day prior. The patient was give n breathing treatments and IV fluids as well as Lasix and then referred for admission. When seen in the ER, he was awake, alert, oriented x3, in some mild respiratory distress. The patient was on BiPA P. Past Medical History: Hypertension, hypothyroidism, hypercholesterolemia, atrial fibrillation, nonin sulin dependent diabetes. Past Surgical History: Right elbow surgery. Allergies: NO KNOWN DRUG ALLERGIES. Medications: List reviewed. Social History: The patient is a daily smoker. Uses alcohol occasionally. No illicit drug use. Th e patient is independent in his activities of daily living. The patient is , has a daughter w ho lives at home. Review of Systems: An 11-point system reviewed, negative except as per HPI. Physical Examination: Vital Signs: Blood pressure 126/71, respirations 24, pulse 68, temperature 97.8, pulse ox 91% on [place] m air. General: Awake, alert, oriented x3, elderly male, in mild respiratory distress. HEENT: Normocephalic, atraumatic. PERRLA. EOMI. Moist mucous membranes. Oropharynx is clear. Co njunctivae are anicteric. Neck: Supple. No JVD. Trachea midline. CV: S1, S2. Peripheral pulses present. No murmurs. Respiratory: Diminished breath sounds. Expiratory wheezing is present. The patient is slightly tac hypneic. No use of accessory muscles. No stridor. Gastrointestinal: Abdomen is soft, nontender, nondistended. Positive bowel sounds. No guarding or rigidity. No hepatomegaly. Extremities: No clubbing or cyanosis. The patient does have some trace pedal edema. No calf tender ness. Neuro: Cranial nerves 2 through 12 intact grossly. No focal neurological deficit. Speech is normal . No facial asymmetry. Skin: No rashes. Normal skin turgor. Psych: Deferred. Laboratory Data: WBC 7.4, H and H 15.2 and 47.1, platelets 161, neutrophils 70%. INR 1.38. Sodium 137, potassium 4.5, chloride 100, CO2 of 30, BUN 15, creatinine 0.75, glucose 317, lactate 3.5, calci um 8.8. CK 97. Troponin less than 0.02. Procalcitonin less than 0.05. Influenza screen from 09/06 was negative. Chest x-ray shows pronounced cardiomegaly with mild vascular engorgement and pro minent interstitial pattern. Chest is not significantly different from prior day comparisons. Assessment And Plan: A 73-year-old male with; 1.Acute chronic obstructive pulmonary disease exacerbation. We will start on IV steroids, breathing treatments, and supplemental oxygen. The patient is currently on BiPAP. 2.Acute respiratory distress with hypoxia. Continue BiPAP and wean as tolerated. The patient does have elevated lactate. Procalcitonin is negative. No elevated WBC. 3.Atrial fibrillation, chronic. We will continue with Coumadin and Coreg. Monitor INR. 4.Diabetes mellitus type 2, non-insulin dependent. We will continue sliding scale insulin and monit or Accu-Cheks. 5.Hypothyroidism. Continue levothyroxine. 6.Essential hypertension. We will resume home medications as appropriate. 7.Hyperlipidemia. Continue statin. 8.Obesity. 9.Gastrointestinal and deep venous thrombosis prophylaxis. The patient is already on Coumadin. We will continue to monitor INR, currently subtherapeutic. Plan: Admit the patient to Med-Surg, place as inpatient, with remote cardiac telemetry. Length of s sincere greater than 2 midnights. MAGALYS Voice ID: [id number]
[2018-09-08] MEDS: LEVOTHYROXINE SOD 0.1 MG TAB PO SCH (05:44)
[2018-09-08 06:07] LABS: Absolute Monocytes 0.2 K/uL (0.1-1.3); Absolute Neutrophil 4.2 K/uL (1.8-8.0); Basophils % 0.1 % (0-1.3); Hematocrit 44.5 % (39.6-49.0); Lymphocytes % 17.9 % (15.3-44.8); MPV 8.8 fL (7.6-11.3); Monocytes % 2.9 % (3.3-12.3); RBC Red Blood Cell Count 4.67 M/uL (4.33-5.43)
[2018-09-08 06:15] LABS: Protime INR 1.53
[2018-09-08 06:30] LABS: BUN Blood Urea Nitrogen 18 mg/dL (7-18); Bicarbonate 29 mmol/L (21-32); Glucose Level 258 mg/dL (74-106); Potassium 4.4 mmol/L (3.5-5.1); Sodium Level 138 mmol/L (136-145)
--- NOTE | 2018-09-08 07:22 | EKG ---
Test Date: 2018-09-07 Test Time: 16:22:10 Society Editor: VIDHYA MEASUREMENT RESULTS: Intervals: Rate: 70 [place]: QRSD: 98 QT: 384 QTc: 414 [place]: P: [place]: QRS: 45 T: 60 INTERPRETIVE STATEMENTS: Atrial fibrillation with premature ventricular or aberrantly conducted complexes Nonspecific ST and T wave abnormality Abnormal ECG Compared to ECG 09/06/2018 08:20:25 No significant changes Electronically Signed On 09-08-18 07:20:57 TRANSPORT SPECIALIST by Jer Rae
[2018-09-08] MEDS: PARoxetine HCl 10 MG TAB PO SCH (09:05)
[2018-09-08] MEDS: AMLODIPINE 5 MG TAB PO SCH (09:05)
[2018-09-08] MEDS: CARVEDILOL 25 MG TAB PO SCH ×2 (09:05→20:57)
[2018-09-08] MEDS: INSULIN -REGULAR HUMAN 50 UNIT/0.5 ML ML SQ SCH ×4 (09:06→20:58)
[2018-09-08] MEDS: FUROSEMIDE 40 MG/4 ML VIAL IV SCH ×2 (12:51→20:58)
--- NOTE | 2018-09-08 13:41 | ECHO ---
HEIGHT: 5 ft 5 in WEIGHT: 208 lb 0 oz DATE OF STUDY: 09/08/[address]: Jaswant Marr MD 2-DIMENSIONAL: YES M.MODE: YES DOPPLER: YES COLOR FLOW: YES TDS: YES PORTABLE: DEFINITY: BUBBLE STUDY: DIAGNOSIS: EVALUATE FOR CONGESTIVE HEART FAILURE. CARDIAC HISTORY: CATHERIZATION: NO SURGERY: NO PROSTHETIC VALVE: NO PACEMAKER: NO MEASUREMENTS (cm) DIASTOLIC (NORMALS) SYSTOLIC (NORMALS) IVSd 1.6 (0.6-1.2) LA Diam 7.0 (1.9-4.0) LVEF 55% LVIDd 4.6 (3.5-5.7) LVIDs 3.3 (2.0-3.5) %FS 28% LVPWd 1.5 (0.6-1.2) Ao Diam 3.4 (2.0-3.7) 2 DIMENSIONAL ASSESSMENT: RIGHT ATRIUM: NORMAL LEFT ATRIUM: DILATED RIGHT VENTRICLE: NORMAL LEFT VENTRICLE: LEFT VENTRICULAR HYPERTROPHY TRICUSPID VALVE: NORMAL MITRAL VALVE: NORMAL PULMONIC VALVE: NORMAL AORTIC VALVE: SLCEROSIS PERICARDIAL EFFUSION: NONE AORTIC ROOT: NORMAL LEFT VENTRICULAR WALL MOTION: NORMAL DOPPLER/COLOR FLOW: MILD MITRAL REGURGITATION AND TRICUSPID REGURGITATION. MILD PULMONARY HYPERTENSION. ESTIMATED RIGHT VENTRICULAR SYSTOLIC PRESSURE 40 mmHg. NO AORITC STENOSIS OR AORTIC REGURGITATION. COMMENTS: NORMAL LEFT VENTRICULAR EJECTION FRACTION. LEFT VENTRICULAR HYPERTROPHY. DILATED LEFT ATRIUM. AORTIC SCLEROSIS WITH NO AORTIC STENOSIS OR AORTIC REGURGITATION. MILD MITRAL REGURGITATION AND TRICUSPID REGURGITATION. MILD PULMONARY HYPERTENSION. TECHNOLOGIST: INA MARQUEZ
--- NOTE | 2018-09-08 16:56 | PN ---
Date of Progress Note: 09/08/2018 Subjective: The patient is seen and examined. Chart reviewed and case discussed with RN. Family at the bedside. Treatment plan explained. All questions answered. The patient is now tolerating bein g off the BiPAP for breakfast, however, required BiPAP throughout the night. Currently on nasal gorge christina while he eats. Medications: List reviewed. Physical Examination: Vital Signs: Temperature 97.6, heart rate 71, blood pressure 140/66, respirations 18, and O2 of 96% on 2 L via nasal cannula. General: Awake, alert, and oriented x3, elderly male, ill appearing, obese, BMI of 34.6. CV: S1 and S2, irregularly irregular. Peripheral pulses present. Respiratory: Diminished breath sounds, some wheezing heard. The patient is tachypneic. No use of a ccessory muscles. Gastrointestinal: Abdomen is soft, nontender, and nondistended. Positive bowel sounds. No guarding or rigidity. Extremities: No clubbing or cyanosis. The patient does have peripheral edema. Neurologic: Nonfocal. Laboratory Data: Sodium 138, potassium 4.4, chloride 102, CO2 of 29, BUN 18, creatinine 0.73, glucos e 258, and calcium 8.2. BNP 481. WBC 5.3, H and H of 14.7 and 44.5, platelets 147. INR 1.53. Assessment: A 73-year-old male with, 1.Acute chronic obstructive pulmonary disease exacerbation. Continue steroids and nebulizer treatme nts. The patient is still requiring BiPAP. 2.Acute respiratory failure with hypoxia. Continue BiPAP and wean as tolerated secondary to above. 3.Atrial fibrillation, chronic. Continue Coumadin and Coreg. INR is subtherapeutic. We will adjus t Coumadin dose. 4.Pulmonary edema. BNP is elevated. The patient may have congestive heart failure. He does have c ardiomegaly on chest x-ray. We will obtain echocardiogram and evaluate ejection fraction. We will h old off on any IV fluids. We will give trial of Lasix. We will continue to monitor I's and O's. 5.Diabetes mellitus type 2, non-insulin dependent with hyperglycemia. We will continue sliding scal e insulin and monitor Accu-Cheks. 6.Hypothyroidism. Continue levothyroxine. 7.Essential hypertension, stable. 8.Mixed hyperlipidemia. Continue statin. 9.Obesity, BMI of 34.6. 10.Gastrointestinal and deep venous thrombosis prophylaxis. The patient is already on Coumadin. PLAN: Obtain echocardiogram, start on diuretics, wean off steroids, likely discharge in the next 24 to 48 hours. /SERGIO Voice ID: [id number] Report ID: [id number]
[2018-09-08] MEDS ORDERED: WARFARIN SODIUM 7.5 MG TAB PO SCH (17:00)
[2018-09-08] MEDS ORDERED: WARFARIN SODIUM 5 MG TAB PO SCH (17:00)
[2018-09-08] MEDS: PANTOPRAZOLE 40MG TABLET PO SCH (20:58)
[2018-09-09] MEDS: ALBUTEROL 2.5 MG/3 ML NEB SOL NEB SCH ×5 (03:45→15:31)
[2018-09-09] MEDS: LEVOTHYROXINE SOD 0.1 MG TAB PO SCH (05:19)
[2018-09-09 06:17] LABS: Absolute Lymphocytes (CBC) 1.4 K/uL (0.7-4.9); Absolute Monocytes 1.1 K/uL (0.1-1.3); Absolute Neutrophil 8.9 K/uL (1.8-8.0); Basophils % 0.1 % (0-1.3); Hematocrit 48.6 % (39.6-49.0); Lymphocytes % 12.1 % (15.3-44.8); MPV 8.6 fL (7.6-11.3); Monocytes % 9.4 % (3.3-12.3); RBC Red Blood Cell Count 5.08 M/uL (4.33-5.43)
[2018-09-09 06:26] LABS: BUN Blood Urea Nitrogen 22 mg/dL (7-18); Bicarbonate 35 mmol/L (21-32); Glucose Level 256 mg/dL (74-106); Potassium 4.3 mmol/L (3.5-5.1); Sodium Level 138 mmol/L (136-145)
[2018-09-09] MEDS: METHYLPREDNISOLONE 40 MG INJ IV SCH (09:33)
[2018-09-09] MEDS: INSULIN -REGULAR HUMAN 50 UNIT/0.5 ML ML SQ SCH ×2 (09:33→12:34)
[2018-09-09] MEDS: CARVEDILOL 25 MG TAB PO SCH (09:34)
[2018-09-09] MEDS: AMLODIPINE 5 MG TAB PO SCH (09:34)
[2018-09-09] MEDS: PARoxetine HCl 10 MG TAB PO SCH (09:34)
[2018-09-09] MEDS: FUROSEMIDE 40 MG/4 ML VIAL IV SCH (09:34)
[2018-09-09 11:09] VITALS: O2SAT 93
[2018-09-09 12:34] VITALS: BP 139/63; TEMP 97.1
--- NOTE | 2018-09-09 16:25 | P.DS ---
Admission Date: 09/07/18 Discharge Date: 09/09/18 Disposition: ROUTINE DISCHARGE Discharge Condition: GOOD Reason for Admission: Respiratory Distress Consultations: Pulmonology Procedures: None Brief History of Present Illness: The patient is a 73-year-old male with past medical history of COPD; atrial fibrillation, on Coumadin; who was in his usual state of health until 3 days prior to admission when the patient had a slow onset of worsening shortness of breath. He did report some cough with no significant sputum production. Denied any nausea, vomiting, fever, or chills. Did report some pleuritic-type chest pain. It should be noted that the patient is a daily smoker. The patient 's symptoms are constant, moderate, and progressively worsening. Therefore, he came into the ER for further evaluation. Upon arrival, his workup showed a normal white blood cell count. His chest x-ray showed pronounced cardiomegaly with mild vascular engorgement and prominent interstitial pattern, not significantly different from prior day comparison, he had been to the ER the day prior. The patient was given breathing treatments and IV fluids as well as Lasix and then referred for admission. When seen in the ER, he was awake, alert , oriented x3, in some mild respiratory distress. The patient was on BiPAP. Hospital Course: Discharge diagnosis 1.Acute chronic obstructive pulmonary disease exacerbation. 2.Acute respiratory distress with hypoxia. 3.Atrial fibrillation, chronic. 4.Diabetes mellitus type 2, non-insulin dependent. 5.Hypothyroidism. 6.Essential hypertension. 7.Hyperlipidemia. 8.Obesity. 9 diastolic heart failure Hospital Course Over the course of the hospital stay patient remained stable The patient was initially admitted to the hospital for acute on chronic COPD exacerbation most likely secondary to hypoxia. Patient was started on duo nebs and was placed on BiPAP. Patient had marked improvement and thus was weaned off of BiPAP while here in the hospital. Patient did well overall. Pulmonology was consulted who recommended the patient be started on theophylline in the observe for next 24-48 hr. Patient was observed for next 24 -48 hr and echocardiogram was done to rule out any acute abnormality of the heart. Patient's echocardiogram was consistent with normal PF however patient did have mild hypertension along with mitral and tricuspid valve regurgitation. Patient at that time was started on Lasix for diastolic dysfunction and was asked to continue taking that here in the hospital and when discharged home. Patient had marked improvement in his symptoms and thus was discharged home under stable condition was asked to follow up with pulmonology in about 1-2 days post discharge. Vital Signs/Physical Exam: Temp Pulse Resp BP Pulse Ox 97.1 F 82 18 139/63 96 09/09/18 12:00 09/09/18 12:00 09/09/18 12:00 09/09/18 12:00 09/09/18 12:00 General: Alert, In no apparent distress HEENT: Atraumatic, PERRLA, EOMI Neck: Supple, JVD not distended Respiratory: Clear to auscultation bilaterally, Normal air movement Cardiovascular: Regular rate/rhythm, Normal S1 S2 Gastrointestinal: Normal bowel sounds, No tenderness Musculoskeletal: No tenderness Integumentary: No rashes Neurological: Normal speech, Normal tone, Normal affect Lymphatics: No axilla or inguinal lymphadenopathy Laboratory Data at Discharge: WBC 11.4 K/uL (4.3-10.9) H D 09/09/18 05:28 Hgb 16.0 g/dL (13.6-17.9) 09/09/18 05:28 Hct 48.6 % (39.6-49.0) 09/09/18 05:28 Plt Count 175 K/uL (152-406) 09/09/18 05:28 PT 17.8 SECONDS (9.5-12.5) H 09/08/18 05:49 INR 1.53 09/08/18 05:49 APTT 34.0 SECONDS (24.3-36.9) 09/07/18 15:40 Sodium 138 mmol/L (136-145) 09/09/18 05:28 Potassium 4.3 mmol/L (3.5-5.1) 09/09/18 05:28 BUN 22 mg/dL (7-18) H 09/09/18 05:28 Creatinine 0.79 mg/dL (0.55-1.3) 09/09/18 05:28 Glucose 256 mg/dL (74-106) H 09/09/18 05:28 Home Medications: Albuterol Inhaler [Ventolin Inhaler*] 2 puff PO PRN 09/07/18 Amlodipine [Norvasc*] 5 mg PO DAILY 09/07/18 Carvedilol [Coreg*] 25 mg PO BID 09/07/18 Levothyroxine [Synthroid*] 100 mcg PO BREAKFAST 09/07/18 Omeprazole 20 mg PO BEDTIME 09/07/18 Paroxetine HCl [Paxil] 20 mg PO DAILY 09/07/18 Warfarin Sodium [Coumadin*] 5 mg PO BEDTIME 09/07/18 Furosemide [Lasix] 20 mg PO DAILY #30 tab 09/09/18 predniSONE [Deltasone] 20 mg PO DAILY #5 tab 09/09/18 New Medications: Furosemide [Lasix] 20 mg PO DAILY #30 tab predniSONE [Deltasone] 20 mg PO DAILY #5 tab Diet: Regular Activity: Ad lenka
== END 2018-09-09 15:58 | disposition home or self-care (01) | DRG 190 ==
LOC: ER 14:40 → ERHOLD 16:18 → 2ND 17:55
PROVIDERS: ADMIT Family Medicine; ATTEND Family Medicine
PROC: 5A09457 Assistance with Respiratory Ventilation, 24-96 Consecutive Hours, Continuous Positive Airway Pressure (ICD-10-PCS; principal; 2018-09-07)
DX: J44.1 Chronic obstructive pulmonary disease with (acute) exacerbation (principal); J96.01 Acute respiratory failure with hypoxia; I50.32 Chronic diastolic (congestive) heart failure; J81.1 Chronic pulmonary edema; I48.2 Chronic atrial fibrillation; Z79.01 Long term (current) use of anticoagulants; E03.9 Hypothyroidism, unspecified; I11.0 Hypertensive heart disease with heart failure; E66.9 Obesity, unspecified; I51.7 Cardiomegaly; F17.210 Nicotine dependence, cigarettes, uncomplicated; E11.65 Type 2 diabetes mellitus with hyperglycemia; Z79.84 Long term (current) use of oral hypoglycemic drugs; E78.2 Mixed hyperlipidemia; Z68.34 Body mass index [BMI] 34.0-34.9, adult
CPT/HCPCS: 36415; 71045; 80048; 82550; 82553; 82962; 83605; 83880; 84145; 84484; 85025; 85610; 85730; 87040; 93005; 93306; 94640; 94660; 94760; 96361; 96374; 97116; 97162; 97530; 99285; J1940; J2920; J7030

== ENCOUNTER 2019-08-02 08:08 | Observation (INO) | payer OTHER ==
[2019-08-02 08:54] LABS: Absolute Lymphocytes (CBC) 2.1 K/uL (0.7-4.9); Basophils % 0.4 % (0-1.3); Hematocrit 42.3 % (39.6-49.0); Lymphocytes % 27.2 % (15.3-44.8); MPV 8.3 fL (7.6-11.3); Protime INR 1.78
[2019-08-02] MEDS ORDERED: FAMOTIDINE 20 MG/2 ML VIAL IV ONE (08:54)
[2019-08-02] MEDS ORDERED: MORPHINE 2 MG/ML SYR ONE (08:54)
[2019-08-02] MEDS ORDERED: ONDANSETRON 4 MG/2 ML VIAL ONE (08:54)
[2019-08-02] MEDS ORDERED: CIPROFLOXACIN 400mg IV 400 MG/200 ML BAG IV ONE (08:54)
[2019-08-02] MEDS ORDERED: METRONIDAZOLE 500mg IVPB 500 MG/100 ML BAG IV ONE (08:54)
[2019-08-02] MEDS ORDERED: NA CHLORIDE 0.9% 1,000 ML ONE (08:55)
[2019-08-02 09:19] LABS: ALT/SGPT 30 U/L (12-78); AST/SGOT 24 U/L (15-37); Albumin 3.2 g/dL (3.4-5.0); Alkaline Phosphatase 62 U/L (45-117); BUN Blood Urea Nitrogen 10 mg/dL (7-18); Bicarbonate 30 mmol/L (21-32); Bilirubin Direct 0.3 mg/dL (0-0.2); Bilirubin Total 0.6 mg/dL (0.2-1.0); Glucose Level 121 mg/dL (74-106); Lipase 77 U/L (73-393); NT PRO-BNP 734 pg/mL (<125); Potassium 4.4 mmol/L (3.5-5.1); Protein, Total 7.3 g/dL (6.4-8.2); Sodium Level 141 mmol/L (136-145); Troponin (Emerg Dept Use Only) < 0.02 ng/mL (0.0-0.045)
--- NOTE | 2019-08-02 10:50 | RAD REPORT ---
EXAM DESCRIPTION: CTAbdomen Pelvis W Contrast - 08/02/2019 10:39 am CLINICAL HISTORY: Abdominal pain. ABD PAIN COMPARISON: Abdomen Pelvis W Contrast dated 05/21/2017; CT ABD PELVIS W CONTRAST dated 09/03/2007 TECHNIQUE: Biphasic CT imaging of the abdomen and pelvis was performed with 100 ml non-ionic IV cont rast. All CT scans are performed using dose optimization technique as appropriate and may include automated exposure control or mA/KV adjustment according to patient size. FINDINGS: Small right pleural effusion is noted. Significant cardiomegaly. Mild diffuse fatty liver is present. Cholecystectomy clips. The spleen, pancreas, adrenal glands and kidneys show no acute process. Trace free fluid is seen in the abdomen and pelvis. No bowel obstruction or free air. The appendix is not identified as a discrete structure, however, no secondary findings of appendicitis are identifie d. Sigmoid diverticulosis coli is present with mild wall thickening. No evidence of significant lymp hadenopathy. Prostate gland protrudes into the bladder base in a somewhat irregular fashion. Moderate lumbosacral degenerative changes. IMPRESSION: Significant cardiomegaly. Small right pleural effusion and trace ascites. Sigmoid diverticulosis coli with mild thickening the wall. Followup colonoscopy may be of value if no t recently performed. Prostate enlargement is seen which projects into the base of the urinary bladder.
[2019-08-02 11:04] LABS: Urine Blood NEGATIVE (NEG); Urine Glucose NEGATIVE (NEG); Urine Protein NEGATIVE (NEG)
[2019-08-02] MEDS ORDERED: FUROSEMIDE 40 MG/4 ML VIAL ONE (11:05)
--- NOTE | 2019-08-02 11:09 | ER ---
Nurse's Notes [facility] Name: Juan Nelson Age: 74 yrs Sex: Male : 1945 Arrival Date: 08/02/2019 Time: 08:13 Bed 5 Private MD: Panda Whitmore E Diagnosis: Abdominal tenderness;Cardiomegaly;Diverticular disease of intestine;Diverticulosis of large intestine without perforation or abscess without bleeding;Pleural effusion in conditions classified elsewhere;Hypoxemia;Atrial fibrillation and flutter;Obesity, unspecified Presentation: 08/02 08:19 Transition of care: patient was not received from another setting of care. Onset of tw2 symptoms was August 02, 2019. Risk Assessment: Do you want to hurt yourself or someone else? Patient reports no desire to harm self or others. Initial Sepsis Screen: Does the patient meet any 2 criteria? No. Patient's initial sepsis screen is negative. Does the patient have a suspected source of infection? No. Patient's initial sepsis screen is negative. Care prior to arrival: None. 08:19 Method Of Arrival: Ambulatory tw2 08:27 Presenting complaint: Patient states: Intermittent R sided abdominal pain x approx 5 ph days, also reports bloating and slight SOB, denies N/V/D or fever, seen at PCP Saturday who ordered outpatient CT next Saturday but pain became worse. 08:27 Acuity: KRISTEL 3 ph Historical: - Allergies: 08:20 No Known Drug Allergies; tw2 - Home Meds: 08:34 metformin 1,000 mg Oral tab 1 tab 2 times per day [Active]; amlodipine 5 mg tab ph [Active]; carvedilol 25 mg oral tab [Active]; glipizide 5 mg Oral tab [Active]; levothyroxine 112 mcg oral tab [Active]; Xarelto 20 mg oral tab 1 tab once daily [Active]; omeprazole 20 mg Oral cpDR [Active]; gabapentin 400 mg oral cap [Active]; - PMHx: 08:20 Hypothyroidism; Diabetes - NIDDM; COPD; tw2 - Immunization history:: Adult Immunizations. - Social history:: Smoking status: . - Ebola Screening: : Patient denies travel to an Ebola-affected area in the 21 days before illness onset. - Family history:: not pertinent. Screenin:15 Abuse screen: Denies threats or abuse. Nutritional screening: No deficits noted. tw2 Tuberculosis screening: No symptoms or risk factors identified. Fall Risk Secondary diagnosis (15 points) impaired mobility. Assessment: 08:22 General: Appears in no apparent distress. comfortable, obese, well groomed, Behavior is ph calm, cooperative, appropriate for age, Reports fatigue for Denies fever, chills. Pain: Complains of pain in right upper quadrant and right lower quadrant Pain radiates to left upper quadrant and left lower quadrant Pain currently is 7 out of 10 on a pain scale. Pain began approx 5 days ago Is intermittent. Neuro: Level of Consciousness is awake, alert, obeys commands, Oriented to person, place, time, situation. Cardiovascular: Reports fatigue, shortness of breath, Denies chest pain, nausea, vomiting, Capillary refill < 3 seconds in bilateral fingers Patient's skin is warm and dry. Respiratory: Reports shortness of breath when abdomen feels bloated Airway is patent Respiratory effort is even, unlabored, Respiratory pattern is regular, symmetrical. GI: Abdomen is round Reports lower abdominal pain, upper abdominal pain, bloating, Patient currently denies diarrhea, gaseousness, nausea, vomiting. GI: Derm: Skin is intact, is healthy with good turgor, Skin is pink, warm \T\ dry. Musculoskeletal: Circulation, motion, and sensation intact. Range of motion: intact in all extremities. 09:30 Reassessment: Patient appears in no apparent distress at this time. Patient and/or ph family updated on plan of care and expected duration. Pain level reassessed. Patient is alert, oriented x 3, equal unlabored respirations, skin warm/dry/pink. Patient is alert/active/playful, equal unlabored respirations, skin warm/dry/pink. Pt reports that pain has improved, awaiting lab results and CT scan. 10:30 Reassessment: Patient appears in no apparent distress at this time. No changes from previously documented assessment. Patient and/or family updated on plan of care and expected duration. Pain level reassessed. Patient is alert, oriented x 3, equal unlabored respirations, skin warm/dry/pink. 11:30 Reassessment: Patient appears in no apparent distress at this time. Patient and/or ph family updated on plan of care and expected duration. Pain level reassessed. Patient is alert, oriented x 3, equal unlabored respirations, skin warm/dry/pink. 12:27 Reassessment: Patient appears in no apparent distress at this time. No changes from tw2 previously documented assessment. Patient and/or family updated on plan of care and expected duration. Pain level reassessed. Patient is alert, oriented x 3, equal unlabored respirations, skin warm/dry/pink. 13:30 Reassessment: Patient appears in no apparent distress at this time. Patient and/or ph family updated on plan of care and expected duration. Pain level reassessed. Patient is alert, oriented x 3, equal unlabored respirations, skin warm/dry/pink. Patient states symptoms have improved. 13:45 Reassessment: Attempted to call report, receiving nurse unavailable. ph 14:15 Reassessment: Patient appears in no apparent distress at this time. Patient and/or ph family updated on plan of care and expected duration. Pain level reassessed. Patient is alert, oriented x 3, equal unlabored respirations, skin warm/dry/pink. Report called to Nain CHARLES. Vital Signs: 08:20 BP 150 / 66; Pulse 60; Resp 17; Pulse Ox 96% on R/A; tw2 08:25 Temp 98.0; Weight 97.07 kg; ph 09:12 BP 148 / 78; Pulse 58; Resp 18; Pulse Ox 94% on R/A; ph 10:15 BP 137 / 64; Pulse 56; Resp 20; Pulse Ox 94% on R/A; ph 11:15 BP 125 / 59; Pulse 54; Resp 18; Pulse Ox 95% on 2 lpm NC; ph 12:27 BP 135 / 71; Pulse 63; Resp 18; Pulse Ox 95% on R/A; tw2 13:16 BP 140 / 80; Pulse 48; Resp 18; Temp 97.8; Pulse Ox 96% on 2 lpm NC; ph 14:34 BP 139 / 81; Pulse 61; Resp 17; Pulse Ox 95% on R/A; tw2 ED Course: 08:13 Patient arrived in ED. mr 08:13 Panda Whitmore MD is Private Physician. mr 08:15 Geoff Patel MD is Attending Physician. [facility] 08:15 Bed in low position. Call light in reach. tw2 08:19 Arm band placed on. tw2 08:22 Diego, Bisi, RN is Primary Nurse. ph 08:29 Triage completed. ph 08:30 linotype operator on. Pulse ox on. NIBP on. Door closed. Noise minimized. Warm blanket ph given. Pillow given. Head of bed elevated. 08:41 EKG done, by ED staff, reviewed by Geoff Patel MD. Initial lab(s) drawn, by me, sent kj1 to lab. Inserted saline lock: 22 gauge in right antecubital area, using aseptic technique. Blood collected. 09:15 XRAY Chest (1 view) In Process Unspecified. EDMS 10:36 CT completed. Patient tolerated procedure well. Patient moved back from CT. bq 10:49 CT Abd/Pelvis - PO and IV Contrast In Process Unspecified. EDMS 11:06 Arely Neumann MD is Hospitalizing Provider. daniel 11:14 Patient admitted, IV remains in place. Oxygen administration via nasal cannula \T\ 2L/min.ph 14:24 No provider procedures requiring assistance completed. Patient admitted, IV remains in ph place. Administered Medications: Discontinued: NS 0.9% 1000 ml IV at 1 bolus Per protocol; 1000 mL bolus 08:58 Drug: NS 0.9% 1000 ml Route: IV; Rate: 1 bolus; Site: right antecubital; ph 10:15 Follow up: Response: No adverse reaction; IV Status: Completed infusion; IV Intake: ph 1000ml 08:59 Drug: Zofran 4 mg Route: IVP; Site: right antecubital; ph 14:19 Follow up: Response: No adverse reaction ph 09:00 Drug: Pepcid 20 mg Route: IVP; Site: right antecubital; ph 14:19 Follow up: Response: No adverse reaction ph 09:02 Drug: morphine 2 mg Route: IVP; Site: right antecubital; ph 09:30 Follow up: Response: No adverse reaction; Pain is decreased ph 09:06 Drug: Flagyl 500 mg Volume: 100 ml; Route: IVPB; Rate: 200 ml/hr; Infused Over: 30 ph mins; Site: right antecubital; 09:45 Follow up: Response: No adverse reaction; IV Status: Completed infusion; IV Intake: ph 100ml 10:45 Not Given (Duplicate Order): NS 0.9% 1000 ml IV at 125 ml/hr continuous daniel 11:12 Drug: Cipro 400 mg Volume: 200 ml; Route: IVPB; Infused Over: 60 mins; Site: right ph antecubital; 12:15 Follow up: Response: No adverse reaction; IV Status: Completed infusion; IV Intake: ph 200ml 11:12 Drug: Lasix 40 mg Route: IVP; Site: right antecubital; ph 14:21 Follow up: Urine output 1425 ml; Response: No adverse reaction ph Intake: 09:45 IV: 100ml; Total: 100ml. ph 10:15 IV: 1000ml; Total: 1100ml. ph 12:15 IV: 200ml; Total: 1300ml. ph Output: 14:21 Urine: 1425ml; Total: 1425ml. ph Outcome: 11:07 Decision to Hospitalize by Provider. [facility] 14:24 Admitted to Tele accompanied by tech, family with patient, via wheelchair, room 409. ph 14:24 Condition: stable 14:24 Instructed on the need for admit. 14:34 Patient left the ED. ph Signatures: Dispatcher [employer] Geoff Torres MD MD cha Rivera, Mary mr Quilty, Bisi Ball, RN RN Samira Valladares RN RN tw2 Claudine Boyd kj1
--- NOTE | 2019-08-02 11:10 | EDPHYS ---
Physician Documentation [facility] Name: Juan Nelson Age: 74 yrs Sex: Male : 1945 Arrival Date: 08/02/2019 Time: 08:13 Bed 5 Private MD: Panda Whitmore E ED Physician Geoff Patel HPI: 08/02 08:35 This 74 yrs old Male presents to ER via Ambulatory with complaints of daniel Abdominal Pain. 08:35 The patient presents with abdominal pain in the upper abdomen, in the lower abdomen, daniel abdominal distention in the upper abdomen, in the lower abdomen. Onset: The symptoms/episode began/occurred 3 day(s) ago. The symptoms do not radiate. Associated signs and symptoms: none. The symptoms are described as constant, crampy. Modifying factors: The symptoms are alleviated by nothing, the symptoms are aggravated by food, movement, pressure. Severity of pain: At its worst the pain was moderate in the emergency department the pain is unchanged. The patient has not experienced similar symptoms in the past. Historical: - Allergies: 08:20 No Known Drug Allergies; tw2 - Home Meds: 08:34 metformin 1,000 mg Oral tab 1 tab 2 times per day [Active]; amlodipine 5 mg tab ph [Active]; carvedilol 25 mg oral tab [Active]; glipizide 5 mg Oral tab [Active]; levothyroxine 112 mcg oral tab [Active]; Xarelto 20 mg oral tab 1 tab once daily [Active]; omeprazole 20 mg Oral cpDR [Active]; gabapentin 400 mg oral cap [Active]; - PMHx: 08:20 Hypothyroidism; Diabetes - NIDDM; COPD; tw2 - Immunization history:: Adult Immunizations. - Social history:: Smoking status: . - Ebola Screening: : Patient denies travel to an Ebola-affected area in the 21 days before illness onset. - Family history:: not pertinent. ROS: 08:35 Constitutional: Negative for fever, chills, and weight loss, Eyes: Negative for injury, daniel pain, redness, and discharge, ENT: Negative for injury, pain, and discharge, Neck: Negative for injury, pain, and swelling, Cardiovascular: Negative for chest pain, palpitations, and edema, Respiratory: Negative for shortness of breath, cough, wheezing, and pleuritic chest pain, Back: Negative for injury and pain, : Negative for injury, bleeding, discharge, and swelling, MS/Extremity: Negative for injury and deformity, Skin: Negative for injury, rash, and discoloration, Neuro: Negative for headache, weakness, numbness, tingling, and seizure, Psych: Negative for depression, anxiety, suicide ideation, homicidal ideation, and hallucinations, Allergy/Immunology: Negative for hives, rash, and allergies, Endocrine: Negative for neck swelling, polydipsia, polyuria, polyphagia, and marked weight changes, Hematologic/Lymphatic: Negative for swollen nodes, abnormal bleeding, and unusual bruising. 08:35 Abdomen/GI: Positive for abdominal pain, of the right upper quadrant, left upper quadrant, right lower quadrant and left lower quadrant. Exam: 08:35 Constitutional: This is a well developed, well nourished patient who is awake, alert, daniel and in no acute distress. Head/Face: Normocephalic, atraumatic. Eyes: Pupils equal round and reactive to light, extra-ocular motions intact. Lids and lashes normal. Conjunctiva and sclera are non-icteric and not injected. Cornea within normal limits. Periorbital areas with no swelling, redness, or edema. ENT: Nares patent. No nasal discharge, no septal abnormalities noted. Tympanic membranes are normal and external auditory canals are clear. Oropharynx with no redness, swelling, or masses, exudates, or evidence of obstruction, uvula midline. Mucous membranes moist. Neck: Trachea midline, no thyromegaly or masses palpated, and no cervical lymphadenopathy. Supple, full range of motion without nuchal rigidity, or vertebral point tenderness. No Meningismus. Chest/axilla: Normal chest wall appearance and motion. Nontender with no deformity. No lesions are appreciated. Cardiovascular: Regular rate and rhythm with a normal S1 and S2. No gallops, murmurs, or rubs. Normal PMI, no JVD. No pulse deficits. Respiratory: Lungs have equal breath sounds bilaterally, clear to auscultation and percussion. No rales, rhonchi or wheezes noted. No increased work of breathing, no retractions or nasal flaring. Back: No spinal tenderness. No costovertebral tenderness. Full range of motion. Male : Normal genitalia with no discharge or lesions. Skin: Warm, dry with normal turgor. Normal color with no rashes, no lesions, and no evidence of cellulitis. MS/ Extremity: Pulses equal, no cyanosis. Neurovascular intact. Full, normal range of motion. Neuro: Awake and alert, GCS 15, oriented to person, place, time, and situation. Cranial nerves II-XII grossly intact. Motor strength 5/5 in all extremities. Sensory grossly intact. Cerebellar exam normal. Normal gait. Psych: Awake, alert, with orientation to person, place and time. Behavior, mood, and affect are within normal limits. 08:35 Abdomen/GI: Inspection: distension, Bowel sounds: normal, Palpation: moderate abdominal tenderness, in all quadrants, Liver: no appreciated palpable abnormalities, Hernia: not appreciated. Vital Signs: 08:20 BP 150 / 66; Pulse 60; Resp 17; Pulse Ox 96% on R/A; tw2 08:25 Temp 98.0; Weight 97.07 kg; ph 09:12 BP 148 / 78; Pulse 58; Resp 18; Pulse Ox 94% on R/A; ph 10:15 BP 137 / 64; Pulse 56; Resp 20; Pulse Ox 94% on R/A; ph 11:15 BP 125 / 59; Pulse 54; Resp 18; Pulse Ox 95% on 2 lpm NC; ph 12:27 BP 135 / 71; Pulse 63; Resp 18; Pulse Ox 95% on R/A; tw2 13:16 BP 140 / 80; Pulse 48; Resp 18; Temp 97.8; Pulse Ox 96% on 2 lpm NC; ph 14:34 BP 139 / 81; Pulse 61; Resp 17; Pulse Ox 95% on R/A; tw2 MDM: 08:15 Patient medically screened. [facility] 08:37 Data reviewed: vital signs, nurses notes, lab test result(s), EKG, radiologic studies, [facility] CT scan, plain films. 08/02 08:32 Order name: Basic Metabolic Panel; Complete Time: 09:27 [facility] 08/02 08:32 Order name: CBC with Diff; Complete Time: 09:27 [facility] 08/02 08:32 Order name: LFT's; Complete Time: 09:27 [facility] 08/02 08:32 Order name: Magnesium; Complete Time: 09:27 [facility] 08/02 08:32 Order name: NT PRO-BNP; Complete Time: 09:27 [facility] 08/02 08:32 Order name: PT-INR; Complete Time: 09:27 [facility] 08/02 08:32 Order name: Troponin (emerg Dept Use Only); Complete Time: 09:27 [facility] 08/02 08:32 Order name: XRAY Chest (1 view) [facility] 08/02 08:32 Order name: Lipase; Complete Time: 09:27 [facility] 08/02 08:32 Order name: Urine Culture [facility] 08/02 08:32 Order name: CT Abd/Pelvis - PO and IV Contrast; Complete Time: 11:03 [facility] 08/02 10:33 Order name: Urine Dipstick--Ancillary (enter results) ri 08/02 08:32 Order name: EKG; Complete Time: 08:33 [facility] 08/02 08:32 Order name: Cardiac monitoring; Complete Time: 09:06 [facility] 08/02 08:32 Order name: EKG - Nurse/Tech; Complete Time: 09:06 [facility] 08/02 08:32 Order name: IV Saline Lock; Complete Time: 09:06 [facility] 08/02 08:32 Order name: Labs collected and sent; Complete Time: 09:06 [facility] 08/02 08:32 Order name: O2 Per Protocol; Complete Time: 09:06 [facility] 08/02 08:32 Order name: O2 Sat Monitoring; Complete Time: 09:23 [facility] 08/02 10:45 Order name: Oxygen; Complete Time: 10:52 [facility] Administered Medications: Discontinued: NS 0.9% 1000 ml IV at 1 bolus Per protocol; 1000 mL bolus 08:58 Drug: NS 0.9% 1000 ml Route: IV; Rate: 1 bolus; Site: right antecubital; ph 10:15 Follow up: Response: No adverse reaction; IV Status: Completed infusion; IV Intake: ph 1000ml 08:59 Drug: Zofran 4 mg Route: IVP; Site: right antecubital; ph 14:19 Follow up: Response: No adverse reaction ph 09:00 Drug: Pepcid 20 mg Route: IVP; Site: right antecubital; ph 14:19 Follow up: Response: No adverse reaction ph 09:02 Drug: morphine 2 mg Route: IVP; Site: right antecubital; ph 09:30 Follow up: Response: No adverse reaction; Pain is decreased ph 09:06 Drug: Flagyl 500 mg Volume: 100 ml; Route: IVPB; Rate: 200 ml/hr; Infused Over: 30 ph mins; Site: right antecubital; 09:45 Follow up: Response: No adverse reaction; IV Status: Completed infusion; IV Intake: ph 100ml 10:45 Not Given (Duplicate Order): NS 0.9% 1000 ml IV at 125 ml/hr continuous daniel 11:12 Drug: Cipro 400 mg Volume: 200 ml; Route: IVPB; Infused Over: 60 mins; Site: right ph antecubital; 12:15 Follow up: Response: No adverse reaction; IV Status: Completed infusion; IV Intake: ph 200ml 11:12 Drug: Lasix 40 mg Route: IVP; Site: right antecubital; ph 14:21 Follow up: Urine output 1425 ml; Response: No adverse reaction ph Disposition: 08/02/19 11:07 Hospitalization ordered by Arely Neumann for Inpatient Admission. Preliminary diagnosis are Abdominal tenderness, Cardiomegaly, Diverticular disease of intestine, Diverticulosis of large intestine without perforation or abscess without bleeding, Pleural effusion in conditions classified elsewhere, Hypoxemia, Atrial fibrillation and flutter, Obesity, unspecified. - Bed requested for Telemetry/MedSurg (Inpatient). - Status is Inpatient Admission. ph - Condition is Fair. - Problem is new. - Symptoms have improved. UTI on Admission? No Signatures: Dispatcher [employer] Malka Chaney RN RN dw Anderson, Corey, MD MD cha Hall, Patricia, RN RN Samira Whitmore RN RN tw2 Corrections: (The following items were deleted from the chart) 11:13 11:07 Hospitalization Ordered by Arely Neumann MD for Inpatient Admission. daniel Preliminary diagnosis is Abdominal tenderness; Cardiomegaly; Diverticular disease of intestine; Diverticulosis of large intestine without perforation or abscess without bleeding; Pleural effusion in conditions classified elsewhere. Bed requested for Telemetry/MedSurg (Inpatient). Status is Inpatient Admission. Condition is Fair. Problem is new. Symptoms have improved. UTI on Admission? No. daniel 12:41 11:13 08/02/2019 11:07 Hospitalization Ordered by Arely Neumann MD for Inpatient dw Admission. Preliminary diagnosis is Abdominal tenderness; Cardiomegaly; Diverticular disease of intestine; Diverticulosis of large intestine without perforation or abscess without bleeding; Pleural effusion in conditions classified elsewhere; Hypoxemia; Atrial fibrillation and flutter; Obesity, unspecified. Bed requested for Telemetry/MedSurg (Inpatient). Status is Inpatient Admission. Condition is Fair. Problem is new. Symptoms have improved. UTI on Admission? No. daniel 14:34 12:41 08/02/2019 11:07 Hospitalization Ordered by Arely Neumann MD for Inpatient Admission. Preliminary diagnosis is Abdominal tenderness; Cardiomegaly; Diverticular disease of intestine; Diverticulosis of large intestine without perforation or abscess without bleeding; Pleural effusion in conditions classified elsewhere; Hypoxemia; Atrial fibrillation and flutter; Obesity, unspecified. Bed requested for Telemetry/MedSurg (Inpatient). Status is Inpatient Admission. Condition is Fair. Problem is new. Symptoms have improved. UTI on Admission? No.
--- NOTE | 2019-08-02 12:07 | RAD REPORT ---
EXAM DESCRIPTION: RAD - Chest Single View - 08/02/2019 9:15 am CLINICAL HISTORY: ABDOMINAL DISTENTION Chest pain. COMPARISON: Chest Single View dated 09/07/2018; Chest Single View dated 09/06/2018; Chest Single View d ated 05/21/2017; CHEST SINGLE VIEW dated 01/04/2015 FINDINGS: Portable technique limits examination quality. Mild interstitial pulmonary edema seen. The heart is significantly enlarged. No displaced fractures. IMPRESSION: Mild CHF versus volume overload pattern.
[2019-08-02] MEDS ORDERED: ONDANSETRON 4 MG/2 ML VIAL IV PRN (14:06)
[2019-08-02] MEDS ORDERED: ALBUTEROL 2.5 MG/3 ML NEB SOL NEB PRN (14:06)
[2019-08-02] MEDS ORDERED: ZOLPIDEM TARTRATE 5 MG TABLET PO PRN (14:06)
[2019-08-02] MEDS ORDERED: ACETAMINOPHEN 500 MG TAB PO PRN (14:06)
[2019-08-02 14:50] VITALS: BMI 34.5
[2019-08-02 15:18] LABS: CKMB Creatine Kinase MB 1.2 ng/mL (0.3-3.6); Creatine Phosphokinase 37 U/L (39-308); Troponin I < 0.02 ng/mL (0.0-0.045)
[2019-08-02] MEDS: METRONIDAZOLE 500mg IVPB 500 MG/100 ML BAG IV SCH (16:09)
[2019-08-02] MEDS: ENOXAPARIN 40 MG/0.4 ML SQ SCH (16:09)
[2019-08-02] MEDS: glipiZIDE 5 MG TAB PO SCH (16:09)
[2019-08-02] MEDS: METFORMIN HCL 500 MG TAB PO SCH (16:09)
[2019-08-02 16:32] LABS: Urine Appearance CLEAR; Urine Bilirubin NEGATIVE (NEG); Urine Blood NEGATIVE (NEG); Urine Color YELLOW; Urine Glucose NEGATIVE (NEG); Urine Protein NEGATIVE (NEG); Urine Urobilinogen 0.2 mg/dL (0.2-1.0)
[2019-08-02 16:33] LABS: Urine Microscopic Reflex NO UMIC
[2019-08-02] MEDS ORDERED: RIVAROXABAN 20 MG TABLET PO SCH (17:00)
[2019-08-02] MEDS: IPRATROPIUM BROM 0.5MG/2.5ML NEB SCH (19:35)
[2019-08-02] MEDS ORDERED: HOME MED 1 EA UNK (Omeprazole [Omeprazole] 20 MG) PO SCH (21:00)
[2019-08-02] MEDS ORDERED: PANTOPRAZOLE 40MG TABLET PO SCH (21:00)
[2019-08-02] MEDS: carvediloL 25 MG TAB PO SCH (21:38)
[2019-08-02] MEDS: CIPROFLOXACIN 400mg IV 400 MG/200 ML BAG IV SCH (21:38)
[2019-08-02 22:28] LABS: Creatine Phosphokinase 40 U/L (39-308); Troponin I < 0.02 ng/mL (0.0-0.045)
--- NOTE | 2019-08-02 23:17 | HP ---
Date of Admission: 08/02/2019 Reason For Admission: Abdominal pain. History Of Present Illness: This is a 74-year-old gentleman with history of multiple medical problem s including diabetes, COPD, hypothyroidism, presented to emergency room with progressive nonspecific abdominal pain started few days ago. Patient was seen by primary care physician who advised him he w ould need to have a CT of the abdomen and that will be done as outpatient, but due to the progressive in nature over the pain, patient decided to come to emergency room. Patient denies any fever or chi lls. There was no nausea or vomiting. No diarrhea. In the ER, a CT of the abdomen done and recentl y was inconclusive with cardiomegaly, small right pleural effusion and trace ascites. Sigmoid divert iculosis coli and mild thickening of the wall as well as prostate enlargement noted. Patient was adm itted to the floor to be observed overnight given his cardiomegaly as well as the mild thickening in the colon wall. Currently, he is pain free. Has no fever, no chills. No chest pain or abdominal pa in. Review of Systems: Otherwise as below. Past Medical History: Significant for diabetes, COPD, hypothyroidism, overweight. Past Surgical History: Significant for cholecystectomy. Allergies: NONE. Home Medications: Metformin 1000 mg twice a day, Norvasc 5 mg daily, Coreg 25 mg daily, glipizide 5 mg daily, Synthroid 112 mcg daily, Xarelto 20 mg daily, omeprazole 20 mg daily, gabapentin 400 mg ora lly 3 times a day. Social History: Patient is , has 3 kids. 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 He does not use any drug s. He does smoke daily 1 pack a day for the last 50 years. He does not use any street drugs. Family History: Both father and mother of diabetes complications. Review of Systems: Denies any fever, chills, night sweats, dizziness, lightheaded, headache, blurred vision. There is n o change in weight or appetite. He does not have any cough or sputum, shortness of breath. No chest pain, palpitations, PND, orthopnea, dyspnea on exertion. He does have diffuse abdominal pain, which resolved now even without pain medication. There was no nausea, vomiting reported. There was no di arrhea, black stool, blood in the stool. There is no depression, anxiety, seizure or stroke. Physical Examination: Vital signs: In the ER showed blood pressure is at 150/66, respiratory rate 17, pulse 60, saturating 96% on room air, temperature within normal. General: Patient is alert, oriented x3, does not look in any distress. HEENT: Atraumatic, normocephalic. PERRLA. Oral mucosa is moist. Neck: Supple. No JVD. No carotid bruits. Chest: Clear to auscultation. Good air entry. Heart: Regular rate and rhythm, S1, S2 normal. No gallop or murmur. Abdomen: Distended and nontender. No masses. Positive bowel sounds. Active bowel sounds. Extremities: No clubbing, cyanosis, or edema. No calf tenderness. Neurologic: Grossly intact. Cranial nerve exam 2 through 12 are intact. Normal sensation. Normal reflexes. Normal muscle strength. Laboratory Data: CBC was normal except for a platelet of 139. INR of 1.78. Chemistry within normal , glucose 121, calcium 8.4, BNP of 734, albumin 3.2, lipase 77. A CT scan as mentioned above. Assessment/plan: 74-year-old gentleman with history of diabetes, hypertension, morbid obesity, as we ll as chronic obstructive pulmonary disease presented with nonspecific abdominal pain. 1.Abdominal pain. Mild thickening of the colon wall on CT scan? Colitis ulcer. Patient on IV anti biotic with Cipro and Flagyl empirically. I will keep him on clear liquid diet for today and observe him overnight and decide if better, may be able to discharge patient home. If not any better, then we may need to consider GI consult. 2.Cardiomegaly on x-ray with sign of congestive heart failure. Patient had echocardiogram last and that showed normal ejection fraction. I will continue patient on Lasix. Also, he has oral Lasix to IV and we will reassess in the a.m. I will hold off cardiology consult at this point, as toi murphy not short of breath neither asymptomatic. 3.History of diabetes. I will resume his home medication with the metformin, glipizide and insulin sliding scale. 4.Hypothyroidism. Will resume patient on Synthroid 112 mcg daily. 5.Hypertension. Resume amlodipine and Coreg. 6.Deep vein thrombosis prophylaxis with Lovenox. STEPHANIE/SERGIO Voice ID: [id number]
[2019-08-03] MEDS: METRONIDAZOLE 500mg IVPB 500 MG/100 ML BAG IV SCH ×2 (00:52→09:00)
[2019-08-03] MEDS: IPRATROPIUM BROM 0.5MG/2.5ML NEB SCH ×2 (01:55→07:41)
--- NOTE | 2019-08-03 05:32 | EKG ---
Test Date: 2019-08-02 Test Time: 08:24:58 Aerial Photographer: CJ MEASUREMENT RESULTS: Intervals: Rate: 65 KS: QRSD: 102 QT: 428 QTc: 445 [place]: P: KS: QRS: 70 T: 31 INTERPRETIVE STATEMENTS: Atrial fibrillation ST abnormality, possible digitalis effect Abnormal ECG Compared to ECG 09/07/2018 16:22:10 Ventricular premature complex(es) no longer present ST (T wave) deviation still present Electronically Signed On 08-03-19 05:30:46 DRYWALL TAPER by Jer Rae
[2019-08-03 06:12] LABS: Basophils % 0.6 % (0-1.3); Hematocrit 39.8 % (39.6-49.0); Lymphocytes % 28.2 % (15.3-44.8); MPV 8.5 fL (7.6-11.3); RBC Red Blood Cell Count 4.29 M/uL (4.33-5.43)
[2019-08-03] MEDS ORDERED: LEVOTHYROXINE SOD 0.112 MG TAB PO SCH (06:30)
[2019-08-03 06:33] LABS: ALT/SGPT 27 U/L (12-78); AST/SGOT 20 U/L (15-37); Alkaline Phosphatase 57 U/L (45-117); BUN Blood Urea Nitrogen 11 mg/dL (7-18); Bicarbonate 30 mmol/L (21-32); Bilirubin Total 0.8 mg/dL (0.2-1.0); Glucose Level 78 mg/dL (74-106); Potassium 4.1 mmol/L (3.5-5.1); Protein, Total 6.6 g/dL (6.4-8.2); Sodium Level 141 mmol/L (136-145)
[2019-08-03 06:39] LABS: CKMB Creatine Kinase MB < 1.0 ng/mL (0.3-3.6); Creatine Phosphokinase 40 U/L (39-308); Troponin I < 0.02 ng/mL (0.0-0.045)
[2019-08-03] MEDS ORDERED: PAROXETINE HCL 20 MG PO SCH (09:00)
[2019-08-03] MEDS ORDERED: AMLODIPINE 5 MG TAB PO SCH (09:00)
[2019-08-03] MEDS ORDERED: FUROSEMIDE 40 MG/4 ML VIAL IV SCH (09:00)
[2019-08-03] MEDS ORDERED: PARoxetine HCl 10 MG TAB PO SCH (09:00)
[2019-08-03] MEDS: CIPROFLOXACIN 400mg IV 400 MG/200 ML BAG IV SCH (09:40)
[2019-08-03] MEDS: METFORMIN HCL 500 MG TAB PO SCH (09:41)
[2019-08-03] MEDS: ENOXAPARIN 40 MG/0.4 ML SQ SCH (09:41)
[2019-08-03] MEDS: glipiZIDE 5 MG TAB PO SCH (09:42)
[2019-08-03] MEDS: carvediloL 25 MG TAB PO SCH (09:47)
--- NOTE | 2019-08-03 11:25 | P.DS ---
Admission Date: 08/02/19 Discharge Date: 08/03/19 Primary Care Provider: PCP Disposition: ROUTINE DISCHARGE Discharge Condition: GOOD Reason for Admission: Abdominal pain and dyspnea - Problems (1) Colitis Current Visit: Yes Status: Acute (2) COPD with acute exacerbation Current Visit: No Status: Acute Brief History of Present Illness: This is a 74-year-old male patient was admitted yesterday for dyspnea and abdominal pain. Patient was worked up in the ED and shown to have no acute laboratory findings. On CT patient did have a possible early mild colitis. The patient was admitted from the emergency room for further evaluation and hospital. Hospital Course: Patient has done very well over the last 24 hr. Patient is back to baseline. No acute breathing problems with exertion or at rest. Patient currently requiring no oxygen at this time. Patient has no abdominal pain, nausea vomiting, diarrhea. Patient has had no fevers. Labs have remained unremarkable. Vital Signs/Physical Exam: Temp Pulse Resp BP Pulse Ox 97.2 F 60 16 133/71 96 08/03/19 08:00 08/03/19 09:47 08/03/19 08:00 08/03/19 09:47 08/03/19 08:00 General: Alert, In no apparent distress, Oriented x3 HEENT: Normocephalic, PERRLA, Mucous membr. moist/pink, EOMI Neck: Supple, 2+ carotid pulse no bruit, JVD not distended Respiratory: Clear to auscultation bilaterally, Normal air movement Cardiovascular: No edema, Normal pulses, Regular rate/rhythm, Normal S1 S2, No gallops, No rubs, No murmurs Capillary refill: <2 Seconds Gastrointestinal: Normal bowel sounds, Soft and benign, Non-distended, No ascites, No tenderness, No masses, No rebound, No guarding Musculoskeletal: No clubbing, No swelling, No contractures, No erythema, No tenderness, No warmth Integumentary: No rashes, No breakdown, No significant lesion, No tenderness/ swelling, No erythema, No warmth, No cyanosis Neurological: Normal gait, Normal speech, Normal strength at 5/5 x4 extr, Sensation intact, Cranial nerves 3-12 intact, Normal reflexes 2+, Normal affect Lymphatics: No axilla or inguinal lymphadenopathy Laboratory Data at Discharge: WBC 6.9 K/uL (4.3-10.9) 08/03/19 05:54 Hgb 13.0 g/dL (13.6-17.9) L 08/03/19 05:54 Hct 39.8 % (39.6-49.0) 08/03/19 05:54 Plt Count 146 K/uL (152-406) L 08/03/19 05:54 PT 20.5 SECONDS (9.5-12.5) H 08/02/19 08:41 INR 1.78 08/02/19 08:41 Sodium 141 mmol/L (136-145) 08/03/19 05:54 Potassium 4.1 mmol/L (3.5-5.1) 08/03/19 05:54 BUN 11 mg/dL (7-18) 08/03/19 05:54 Creatinine 0.79 mg/dL (0.55-1.3) 08/03/19 05:54 Glucose 78 mg/dL (74-106) 08/03/19 05:54 Magnesium 2.0 mg/dL (1.8-2.4) 08/02/19 08:41 Total Bilirubin 0.8 mg/dL (0.2-1.0) 08/03/19 05:54 AST 20 U/L (15-37) 08/03/19 05:54 ALT 27 U/L (12-78) 08/03/19 05:54 Alkaline Phosphatase 57 U/L (45-117) 08/03/19 05:54 Troponin I < 0.02 ng/mL (0.0-0.045) 08/03/19 05:54 Lipase 77 U/L (73-393) 08/02/19 08:41 Home Medications: Amlodipine [Norvasc*] 5 mg PO DAILY #30 tab 08/03/19 Ciprofloxacin HCl [Cipro 500 MG Tablet] 500 mg PO BID 10 Days tab 08/03/19 Gabapentin [Neurontin*] 1 tab PO DAILY #30 cap 08/03/19 Glipizide [Glipizide ER] 1 tab PO DAILY #30 tab.er.24 08/03/19 Levothyroxine [Synthroid*] 1 tab PO DAILY #30 tab 08/03/19 Metformin ER [Glucophage ER*] 1,000 mg PO BID #60 tab.sa 01/06/20 Metronidazole [Flagyl] 500 mg PO Q6HR 10 Days capsule 08/03/19 Rivaroxaban [Xarelto] 1 tab PO DAILY #30 tablet 08/03/19 Umeclidinium [place] [Incruse Ellipta] 1 puff PO DAILY #1 blst.w.dev 08/03/19 New Medications: Amlodipine [Norvasc*] 5 mg PO DAILY #30 tab Ciprofloxacin HCl [Cipro 500 MG Tablet] 500 mg PO BID 10 Days tab Gabapentin [Neurontin*] 1 tab PO DAILY #30 cap Glipizide [Glipizide ER] 1 tab PO DAILY #30 tab.er.24 Levothyroxine [Synthroid*] 1 tab PO DAILY #30 tab Metformin ER [Glucophage ER*] 1,000 mg PO BID #60 tab.sa Metronidazole [Flagyl] 500 mg PO Q6HR 10 Days capsule Rivaroxaban [Xarelto] 1 tab PO DAILY #30 tablet Umeclidinium [place] [Incruse Ellipta] 1 puff PO DAILY #1 blst.w.dev Patient Discharge Instructions: 1. Continue Home Medications. 2. Follow up with provided physicians and PCP. 3. Finish antibioitics prescribed. 4. Monitor Glucose carefully. 5. Return to ED if something were to change or worsen Diet: ADA Activity: Ad lenka Followup: Mikey Boone MD [ACTIVE - CAN ADMIT] - Manjeet Marie MD [ACTIVE - CAN ADMIT] - Time spent managing pt's care (in minutes): 45
[2019-08-03 12:17] VITALS: BP 119/67; TEMP 97
[2019-08-03 12:57] VITALS: O2SAT 94
== END 2019-08-03 14:05 | disposition home or self-care (01) ==
LOC: ER 08:08 → INTOOBSV 11:10 → ERHOLD 11:10 → 4TH 14:19
PROVIDERS: ADMIT Internal Medicine; ATTEND Internal Medicine
DX: K52.9 Noninfective gastroenteritis and colitis, unspecified (principal); J44.1 Chronic obstructive pulmonary disease with (acute) exacerbation; E11.9 Type 2 diabetes mellitus without complications; E03.9 Hypothyroidism, unspecified; I10 Essential (primary) hypertension
CPT/HCPCS: 96365; 96367; 96361; 93005; 87088; 87070; 85025 ×2; 80048; 36415; 83735; 82550 ×3; 87205; 85610; 82947 ×3; 80076; 81003 ×2; 84484 ×4; 82553 ×3; 83690; 80053; 83880; 74177; 71045; 94640; 96375; 99285; Q9967; J1940 ×3; J1650; J2270; J7030; J2405; J0744 ×3; G0378 ×3; 87086

== ENCOUNTER 2019-12-31 09:07 | Emergency (ER) | payer OTHER ==
[2019-12-31] MEDS ORDERED: METHYLPREDNISOLONE 125 MG INJ ONE (10:00)
[2019-12-31] MEDS ORDERED: DIPHENHYDRAMINE 50 MG/ML VIAL ONE (10:00)
--- NOTE | 2019-12-31 11:49 | ER ---
Nurse's Notes [facility] Name: Juan Nelson Age: 74 yrs Sex: Male : 1945 Arrival Date: 12/31/2019 Time: 09:09 Bed 8 Private MD: Panda Whitmore E Diagnosis: Acute allergic reaction - unkown precipitant Presentation: 12/30 09:31 Chief complaint: Patient states: EYE AND THROAT PAIN WITH SWELLING. Coronavirus screen: bp Proceed with normal triage. Ebola Screen: No symptoms or risks identified at this time. Initial Sepsis Screen: Does the patient meet any 2 criteria? No. Patient's initial sepsis screen is negative. Does the patient have a suspected source of infection? No. Patient's initial sepsis screen is negative. Risk Assessment: Do you want to hurt yourself or someone else? Patient reports no desire to harm self or others. Onset of symptoms was December 31, 2019. 09:31 Method Of Arrival: Ambulatory bp 09:31 Acuity: KRISTEL 3 bp Triage Assessment: 09:39 Headache History: Denies prior headaches. General: Appears in no apparent distress. bp uncomfortable, Behavior is cooperative, appropriate for age, anxious. Pain: Pain currently is 6 out of 10 on a pain scale. Pain began 2 hours ago. Also complains of no other associated symptoms. EENT: Eyes LEFT YOLI-ORBITAL EDEMA. Neuro: Level of Consciousness is awake, alert, obeys commands, Oriented to person, place, time, situation, Appropriate for age. Cardiovascular: Rhythm is sinus rhythm. Respiratory: Airway is patent Respiratory effort is even, unlabored. GI: No signs and/or symptoms were reported involving the gastrointestinal system. : No signs and/or symptoms were reported regarding the genitourinary system. Derm: No deficits noted. Musculoskeletal: No deficits noted. Historical: - Allergies: :39 No Known Allergies; bp - Home Meds: :39 metformin 1,000 mg Oral tab 1 tab 2 times per day [Active]; amlodipine 5 mg tab bp [Active]; carvedilol 25 mg Oral tab 1 tab [Active]; glipizide 5 mg Oral tab [Active]; levothyroxine 112 mcg tab [Active]; omeprazole 20 mg Oral cpDR [Active]; Xarelto 20 mg Oral tab 1 tab once daily [Active]; paroxetine HCl 20 mg oral tab 1 tab once daily [Active]; - PMHx: 09:39 COPD; Hypothyroidism; Diabetes - NIDDM; bp - Immunization history:: Adult Immunizations up to date. - Social history:: Smoking status: Patient denies any tobacco usage or history of. Screenin:39 Abuse screen: Denies threats or abuse. Denies injuries from another. Nutritional bp screening: No deficits noted. Tuberculosis screening: No symptoms or risk factors identified. Fall Risk None identified. Assessment: 09:39 General: SEE TRIAGE NOTE. Pain: Denies pain. bp 10:50 Respiratory: Airway is patent Respiratory effort is even, unlabored. bp 11:45 Reassessment: Patient is alert, oriented x 3, equal unlabored respirations, skin aa5 warm/dry/pink. Pt states feeling better, pt denies headache and denies eye pressure. Swelling around eyes has improved. Dr. Mendoza notified. . 12:04 Reassessment: PT D/C HOME AMBULATORY, DX WITH ACUTE ALLERGIC REACTION. bp Vital Signs: 09:31 BP 148 / 78; Pulse 90; Resp 16; Temp 98.8; Pulse Ox 98% ; bp 10:50 BP 125 / 80; Pulse 65; Resp 17; Pulse Ox 98% ; bp 12:04 BP 120 / 73; Pulse 74; Resp 16; Temp 98.5; Pulse Ox 99% ; bp ED Course: 09:09 Patient arrived in ED. ag5 09:09 Panda Whtimore MD is Private Physician. ag5 09:24 Venancio Matias, MELVIN is Primary Nurse. bp 09:25 Juvenal Mendoza MD is Attending Physician. kdr 09:32 Triage completed. bp 09:39 Arm band placed on. EKG completed in triage. Results shown to MD. bp 09:39 Patient has correct armband on for positive identification. Bed in low position. Call bp light in reach. Side rails up X2. 10:05 Inserted saline lock: 22 gauge in right forearm, using aseptic technique. bp 11:47 Panda Whitmore MD is Referral Physician. kdr 12:04 No provider procedures requiring assistance completed. IV discontinued, intact, bp bleeding controlled, No redness/swelling at site. Pressure dressing applied. Administered Medications: 10:05 Drug: SOLU-Medrol 60 mg Route: IVP; Site: right forearm; bp 12:04 Follow up: Response: Marked relief of symptoms bp 10:05 Drug: Benadryl 50 mg Route: IVP; Site: right forearm; bp 12:04 Follow up: Response: Marked relief of symptoms bp Outcome: 11:49 Discharge ordered by . kdr 12:04 Discharged to home ambulatory. bp 12:04 Condition: stable 12:04 Discharge instructions given to patient, Instructed on discharge instructions, follow up and referral plans. medication usage, Demonstrated understanding of instructions, follow-up care, medications, Prescriptions given X 2. 12:05 Patient left the ED. aa5 Signatures: Juvenal Mendoza MD MD kdr Calderon, Audri, RN RN aa5 Venancio Matias RN RN David Nevarez [facility]
--- NOTE | 2019-12-31 11:50 | EDPHYS ---
Physician Documentation [facility] Name: Juan Nelson Age: 74 yrs Sex: Male : 1945 Arrival Date: 12/31/2019 Time: 09:09 Bed 8 Private MD: Panda Whitmore E ED Physician Juvenal Mendoza HPI: 12/30 10:09 This 74 yrs old Male presents to ER via Ambulatory with complaints of facial kdr swelling and sore throat. 10:10 The patient presents with localized swelling, Swelling of face and anterior neck. kdr Onset: The symptoms/episode began/occurred gradually, this morning. Associated signs and symptoms: The patient has no apparent associated signs or symptoms. Pertinent positives:. Possible causes: The patient has no known obvious cause for the symptoms. At home the patient or guardian has treated the symptoms with nothing. Severity of symptoms: At their worst the symptoms were mild in the emergency department the symptoms are unchanged. The patient has not experienced similar symptoms in the past. The patient has not recently seen a physician. Historical: - Allergies: 09:39 No Known Allergies; bp - Home Meds: 09:39 metformin 1,000 mg Oral tab 1 tab 2 times per day [Active]; amlodipine 5 mg tab bp [Active]; carvedilol 25 mg Oral tab 1 tab [Active]; glipizide 5 mg Oral tab [Active]; levothyroxine 112 mcg tab [Active]; omeprazole 20 mg Oral cpDR [Active]; Xarelto 20 mg Oral tab 1 tab once daily [Active]; paroxetine HCl 20 mg oral tab 1 tab once daily [Active]; - PMHx: 09:39 COPD; Hypothyroidism; Diabetes - NIDDM; bp - Immunization history:: Adult Immunizations up to date. - Social history:: Smoking status: Patient denies any tobacco usage or history of. ROS: 10:10 Constitutional: Negative for fever, chills, and weight loss, Eyes: Negative for injury, kdr pain, redness, and discharge, Neck: Negative for injury, pain, and swelling, Cardiovascular: Negative for chest pain, palpitations, and edema, Respiratory: Negative for shortness of breath, cough, wheezing, and pleuritic chest pain, Abdomen/GI: Negative for abdominal pain, nausea, vomiting, diarrhea, and constipation, Back: Negative for injury and pain, : Negative for injury, bleeding, discharge, and swelling, MS/Extremity: Negative for injury and deformity, Skin: Negative for injury, rash, and discoloration, Neuro: Negative for headache, weakness, numbness, tingling, and seizure activity. Psych: Negative for depression, anxiety, suicide ideation, homicidal ideation, and hallucinations, Allergy/Immunology: Negative for hives, rash, and allergies, Endocrine: Negative for neck swelling, polydipsia, polyuria, polyphagia, and marked weight changes, Hematologic/Lymphatic: Negative for swollen nodes, abnormal bleeding, and unusual bruising. 10:10 ENT: Positive for sore throat, Negative for drainage from ear(s), ear pain, rhinorrhea, sinus congestion, sinus pain, dental pain, difficulty swallowing, difficulty handling secretions, hoarseness. Exam: 10:10 Constitutional: This is a well developed, well nourished patient who is awake, alert, kdr and in no acute distress. Head/Face: Normocephalic, atraumatic. The patient doess appear to have diffuse facial swelling eith left eye greater than right. No stirdor but c/o fullness ot anterior neck - no dyspghia Eyes: Pupils equal round and reactive to light, extra-ocular motions intact. Lids and lashes normal. Conjunctiva and sclera are non-icteric and not injected. Cornea within normal limits. Periorbital areas with no swelling, redness, or edema. Neck: Trachea midline, no thyromegaly or masses palpated, and no cervical lymphadenopathy. Supple, full range of motion without nuchal rigidity, or vertebral point tenderness. No Meningismus. Chest/axilla: Normal chest wall appearance and motion. Nontender with no deformity. No lesions are appreciated. Cardiovascular: Regular rate and rhythm with a normal S1 and S2. No gallops, murmurs, or rubs. Normal PMI, no JVD. No pulse deficits. Respiratory: Lungs have equal breath sounds bilaterally, clear to auscultation and percussion. No rales, rhonchi or wheezes noted. No increased work of breathing, no retractions or nasal flaring. Abdomen/GI: Soft, non-tender, with normal bowel sounds. No distension or tympany. No guarding or rebound. No evidence of tenderness throughout. Back: No spinal tenderness. No costovertebral tenderness. Full range of motion. Skin: Warm, dry with normal turgor. Normal color with no rashes, no lesions, and no evidence of cellulitis. MS/ Extremity: Pulses equal, no cyanosis. Neurovascular intact. Full, normal range of motion. Neuro: Awake and alert, GCS 15, oriented to person, place, time, and situation. Cranial nerves II-XII grossly intact. Motor strength 5/5 in all extremities. Sensory grossly intact. Cerebellar exam normal. Normal gait. Psych: Awake, alert, with orientation to person, place and time. Behavior, mood, and affect are within normal limits. Vital Signs: 09:31 BP 148 / 78; Pulse 90; Resp 16; Temp 98.8; Pulse Ox 98% ; bp 10:50 BP 125 / 80; Pulse 65; Resp 17; Pulse Ox 98% ; bp 12:04 BP 120 / 73; Pulse 74; Resp 16; Temp 98.5; Pulse Ox 99% ; bp MDM: 10:10 Data reviewed: vital signs, nurses notes. kdr 11:49 Patient medically screened. kdr Administered Medications: 10:05 Drug: SOLU-Medrol 60 mg Route: IVP; Site: right forearm; bp 12:04 Follow up: Response: Marked relief of symptoms bp 10:05 Drug: Benadryl 50 mg Route: IVP; Site: right forearm; bp 12:04 Follow up: Response: Marked relief of symptoms bp Disposition: 12/31/19 11:49 Discharged to Home. Impression: Acute allergic reaction - unkown precipitant. - Condition is Stable. - Discharge Instructions: Allergies, [id number]. - Prescriptions for Benadryl 25 mg Oral Capsule - take 1 capsule by ORAL route every 6 hours As needed; 30 tablet. Prednisone 20 mg Oral Tablet - take 2 tablets by ORAL route once daily for 3 days; 6 tablet. - Medication Reconciliation Form, Thank You Letter form. - Follow up: Panda Whitmore MD; When: 2 - 3 days; Reason: If symptoms return, Further diagnostic work-up, Recheck today's complaints, Continuance of care, Re-evaluation by your physician. - Problem is new. - Symptoms have improved. Signatures: Juvenal Mendoza MD MD kdr Clara Byrne RN RN aa5 Polly, Venancio, RN RN bp Corrections: (The following items were deleted from the chart) 12:05 11:49 12/31/2019 11:49 Discharged to Home. Impression: Acute allergic reaction - unkown aa5 precipitant. Condition is Stable. Forms are Medication Reconciliation Form, Thank You Letter, Antibiotic Education, Prescription Opioid Use. Follow up: Panda Whitmore; When: 2 - 3 days; Reason: If symptoms return, Further diagnostic work-up, Recheck today's complaints, Continuance of care, Re-evaluation by your physician. Problem is new. Symptoms have improved. kdr
[2019-12-31 12:22] VITALS: BP 120/73; TEMP 98.5; O2SAT 99
== END 2019-12-31 12:05 | disposition home or self-care (01) ==
LOC: ER 09:07
DX: R22.1 Localized swelling, mass and lump, neck (principal); T78.40XA Allergy, unspecified, initial encounter; E03.9 Hypothyroidism, unspecified; E11.9 Type 2 diabetes mellitus without complications
CPT/HCPCS: 96375; 96374; 99284; J1200; J2930

== ENCOUNTER 2020-01-05 07:07 | Observation (INO) | payer OTHER ==
[2020-01-05] MEDS ORDERED: FAMOTIDINE 20 MG/2 ML VIAL IV ONE (07:51)
[2020-01-05] MEDS ORDERED: DIPHENHYDRAMINE 50 MG/ML VIAL ONE (07:51)
[2020-01-05] MEDS ORDERED: NA CHLORIDE 0.9% 1,000 ML ONE (07:51)
[2020-01-05] MEDS ORDERED: METHYLPREDNISOLONE 125 MG INJ ONE (07:51)
[2020-01-05 08:07] LABS: Absolute Lymphocytes (CBC) 2.6 K/uL (0.7-4.9); Basophils % 0.4 % (0-1.3); Hematocrit 45.3 % (39.6-49.0); Lymphocytes % 25.3 % (15.3-44.8); MPV 8.1 fL (7.6-11.3)
[2020-01-05 08:19] LABS: BUN Blood Urea Nitrogen 12 mg/dL (7-18); Bicarbonate 31 mmol/L (21-32); Glucose Level 192 mg/dL (74-106); Potassium 4.2 mmol/L (3.5-5.1); Sodium Level 138 mmol/L (136-145)
--- NOTE | 2020-01-05 09:08 | ER ---
Nurse's Notes [facility] Name: Juan Nelson Age: 74 yrs Sex: Male : 1945 Arrival Date: 01/05/2020 Time: 07:09 Bed 15 Private MD: Panda Whitmore E Diagnosis: Edema of bilateral orbit;Rash and other nonspecific skin eruption;Atrial fibrillation and flutter-Hx;Type 2 diabetes mellitus with hyperglycemia Presentation: 01/04 07:24 Chief complaint: Patient states: was seen here on and diagnosed with allergic iw reaction, was prescribed Benadryl and prednisone, now has hives over torso and arms and top of head, still has swelling to eyes. Coronavirus screen: Proceed with normal triage. Patient denies a cough. Patient denies shortness of breath or difficulty breathing. Patient denies measured and/or subjective temperature greater than 100.4F prior to today's visit. Patient denies travel on a cruise ship or to a country the [facility] currently lists as an affected area. Patient denies contact with known and/or suspected case of COVID-19. Ebola Screen: Patient negative for fever greater than or equal to 101.5 degrees Fahrenheit, and additional compatible Ebola Virus Disease symptoms Patient denies exposure to infectious person. Patient denies travel to an Ebola-affected area in the 21 days before illness onset. No symptoms or risks identified at this time. Onset: The symptoms/episode began/occurred last week. Anaphylaxis evaluation, no signs or symptoms of anaphylaxis were noted. Initial Sepsis Screen: Does the patient meet any 2 criteria? No. Patient's initial sepsis screen is negative. Does the patient have a suspected source of infection? No. Patient's initial sepsis screen is negative. Risk Assessment: Do you want to hurt yourself or someone else? Patient reports no desire to harm self or others. Onset of symptoms was January 01, 2020. 07:24 Method Of Arrival: Ambulatory iw 07:24 Acuity: KRISTEL 3 iw Historical: - Allergies: 07:31 No Known Allergies; iw - Home Meds: 07:31 amlodipine 5 mg tab once daily [Active]; levothyroxine 112 mcg tab once daily [Active]; iw metformin 1,000 mg Oral tab 1 tab 2 times per day [Active]; omeprazole 20 mg Oral cpDR [Active]; paroxetine HCl 20 mg Oral tab 1 tab once daily [Active]; Xarelto 20 mg Oral tab 1 tab once daily [Active]; 07:34 carvedilol 25 mg Oral tab 1 tab 2 times per day [Active]; glipizide 5 mg Oral tab 2 iw times per day [Active]; - PMHx: 07:31 COPD; Diabetes - NIDDM; Hypothyroidism; iw - Immunization history:: Adult Immunizations unknown. - Social history:: Smoking status: Patient reports the use of cigarette tobacco products, denies chronic smoking, but will smoke occasionally. Screenin:20 Abuse screen: Denies threats or abuse. Nutritional screening: No deficits noted. rb1 Tuberculosis screening: No symptoms or risk factors identified. Fall Risk None identified. Assessment: 07:20 General: Appears in no apparent distress. Behavior is calm, cooperative. Pain: Denies rb1 pain. Neuro: Level of Consciousness is awake, alert, obeys commands, Oriented to person, place, time, situation. Cardiovascular: Capillary refill < 3 seconds. Respiratory: Airway is patent Respiratory effort is even, unlabored, Respiratory pattern is regular, symmetrical. GI: No signs and/or symptoms were reported involving the gastrointestinal system. : No signs and/or symptoms were reported regarding the genitourinary system. Derm: hives noted on his arms, head, and torso. Swelling in both eyes. 08:20 Reassessment: Patient appears in no apparent distress at this time. Patient and/or rb1 family updated on plan of care and expected duration. Pain level reassessed. Patient is alert, oriented x 3, equal unlabored respirations, skin warm/dry/pink. 08:45 Reassessment: Requested a urine specimen from pt. rb1 09:16 Reassessment: Gave the pt. a cup of ice chips; Provider gave permission. rb1 10:08 Reassessment: Patient appears in no apparent distress at this time. Patient and/or rb1 family updated on plan of care and expected duration. Pain level reassessed. Patient is alert, oriented x 3, equal unlabored respirations, skin warm/dry/pink. Pt. is watching TV. 10:38 Reassessment: Tried to call report, was asked to call back in 10 minutes because the rb1 nurse was administering blood. 11:11 Reassessment: Patient appears in no apparent distress at this time. Respiratory: Breath iw sounds are clear bilaterally. Vital Signs: 07:24 BP 130 / 83; Pulse 82; Resp 18 S; Temp 98.5; Pulse Ox 100% on R/A; Weight 94.8 kg; iw Height 5 ft. 6 in. (167.64 cm); Pain 6/10; 08:15 BP 131 / 66; Pulse 69; Resp 19; Pulse Ox 99% on R/A; rb1 09:11 BP 146 / 79; Pulse 84; Resp 18; Pulse Ox 98% on R/A; rb1 10:07 BP 126 / 83; Pulse 71; Resp 19; Pulse Ox 98% on R/A; rb1 07:24 Body Mass Index 33.73 (94.80 kg, 167.64 cm) iw ED Course: 07:09 Patient arrived in ED. as 07:09 Panda Whitmore MD is Private Physician. as 07:20 Patient has correct armband on for positive identification. Bed in low position. Call rb1 light in reach. Side rails up X 1. Pulse ox on. NIBP on. 07:22 Christianne Ventura FNP-C is PHCP. snw 07:22 Juvenal Mendoza MD is Attending Physician. snw 07:28 Triage completed. iw 07:31 Arm band placed on. iw 07:41 Sherrie Vale, RN is Primary Nurse. rb1 07:49 Christianne Ventura FNP-C is PHCP. snw 07:54 Inserted saline lock: 22 gauge in right antecubital area, using aseptic technique. rb1 Blood collected. 09:06 Jaswant Marr MD is Hospitalizing Provider. snw 11:12 No provider procedures requiring assistance completed. Patient admitted, IV remains in iw place. Administered Medications: 07:49 Drug: Benadryl 25 mg Route: IM; Site: right deltoid; rb1 08:08 Follow up: Response: No adverse reaction rb1 07:55 Drug: NS 0.9% 1000 ml Route: IV; Rate: 75 ml/hr; Site: right antecubital; rb1 07:55 Drug: SOLU-Medrol 125 mg Route: IVP; Site: right antecubital; rb1 08:08 Follow up: Response: No adverse reaction rb1 07:55 Drug: Pepcid 20 mg Route: IVP; Site: right antecubital; rb1 08:08 Follow up: Response: No adverse reaction rb1 Outcome: 09:07 Decision to Hospitalize by Provider. snw 11:12 Admitted to Med/surg accompanied by tech, via wheelchair, room 222, Report called to vivien Bowser RN 11:12 Condition: good 11:12 Discharge instructions given to patient, Instructed on the need for admit, Demonstrated understanding of instructions. 11:17 Patient left the ED. Signatures: Christianne Ventura, RETIREMENT MANAGER-C RETIREMENT MANAGER-Amanda Mcfarland Irene, RN RN Sherrie Vale RN RN rb1 Corrections: (The following items were deleted from the chart) 07:34 07:31 Home Meds: carvedilol 25 mg Oral tab 1 tab; [facility] 07:34 07:31 Home Meds: glipizide 5 mg Oral tab once daily; [facility] 09:15 08:45 Reassessment: Requested a urine specimen from the pt. rb1 rb1
--- NOTE | 2020-01-05 09:08 | EDPHYS ---
Physician Documentation [facility] Name: Juan Nelson Age: 74 yrs Sex: Male : 1945 Arrival Date: 01/05/2020 Time: 07:09 Bed 15 Private MD: Panda Whitmore E ED Physician Juvenal Mendoza HPI: 01/04 07:46 This 74 yrs old Male presents to ER via Ambulatory with complaints of Allergic snw Reaction. 07:46 The patient presents with itching, localized swelling, rash, redness of skin. Onset: snw The symptoms/episode began/occurred last allergy began. Pt was given a few steroids 2ndary to DM. Pt takes Metformin 1000mg BID. As steroids finished, redness and swelling and rash came back. Pt denies any new meds, foods, environments, detergents. Associated signs and symptoms: Pertinent positives: scratchy throat. Possible causes: The patient has no known obvious cause for the symptoms. Severity of symptoms: At their worst the symptoms were moderate severe in the emergency department the symptoms are unchanged. The patient has not experienced similar symptoms in the past. The patient has been recently seen by a physician: The patient has been recently seen at the [facility] Emergency Department, last week, for similar complaints. Historical: - Allergies: 07:31 No Known Allergies; iw - Home Meds: 07:31 amlodipine 5 mg tab once daily [Active]; levothyroxine 112 mcg tab once daily [Active]; iw metformin 1,000 mg Oral tab 1 tab 2 times per day [Active]; omeprazole 20 mg Oral cpDR [Active]; paroxetine HCl 20 mg Oral tab 1 tab once daily [Active]; Xarelto 20 mg Oral tab 1 tab once daily [Active]; 07:34 carvedilol 25 mg Oral tab 1 tab 2 times per day [Active]; glipizide 5 mg Oral tab 2 iw times per day [Active]; - PMHx: 07:31 COPD; Diabetes - NIDDM; Hypothyroidism; iw - Immunization history:: Adult Immunizations unknown. - Social history:: Smoking status: Patient reports the use of cigarette tobacco products, denies chronic smoking, but will smoke occasionally. ROS: 07:42 Neck: Negative for injury, pain, and swelling, Cardiovascular: Negative for chest pain, snw palpitations, and edema, Respiratory: Negative for shortness of breath, cough, wheezing, and pleuritic chest pain, Abdomen/GI: Negative for abdominal pain, nausea, vomiting, diarrhea, and constipation, Back: Negative for injury and pain, : Negative for injury, bleeding, discharge, and swelling, MS/Extremity: Negative for injury and deformity, Neuro: Negative for headache, weakness, numbness, tingling, and seizure, Psych: Negative for depression, anxiety, suicide ideation, homicidal ideation, and hallucinations. 07:42 Constitutional: Positive for malaise. 07:42 Eyes: Positive for redness, swelling. 07:42 ENT: Positive for scratchy throat. 07:42 Skin: Positive for erythema, rash, swelling. Exam: 07:37 Neck: Trachea midline, no thyromegaly or masses palpated, and no cervical snw lymphadenopathy. Supple, full range of motion without nuchal rigidity, or vertebral point tenderness. No Meningismus. Chest/axilla: Normal chest wall appearance and motion. Nontender with no deformity. No lesions are appreciated. Cardiovascular: Regular rate and rhythm with a normal S1 and S2. No gallops, murmurs, or rubs. Normal PMI, no JVD. No pulse deficits. Respiratory: Lungs have equal breath sounds bilaterally, clear to auscultation and percussion. No rales, rhonchi or wheezes noted. No increased work of breathing, no retractions or nasal flaring. Abdomen/GI: Soft, non-tender, with normal bowel sounds. No distension or tympany. No guarding or rebound. No evidence of tenderness throughout. Back: No spinal tenderness. No costovertebral tenderness. Full range of motion. MS/ Extremity: Pulses equal, no cyanosis. Neurovascular intact. Full, normal range of motion. Neuro: Awake and alert, GCS 15, oriented to person, place, time, and situation. Cranial nerves II-XII grossly intact. Motor strength 5/5 in all extremities. Sensory grossly intact. Cerebellar exam normal. Normal gait. Psych: Awake, alert, with orientation to person, place and time. Behavior, mood, and affect are within normal limits. 07:37 Constitutional: The patient appears alert, awake, uncomfortable, red faced with perioral and periocular edema, large red macular rash down trunk and extremities 07:37 Head/face: Noted is erythema, that is moderate, of the right eye, left eye and mouth, swelling. 07:37 Eyes: Periorbital structures: erythema, swelling, Pupils: no acute changes, Extraocular movements: no acute changes, Conjunctiva: normal. 07:37 ENT: Nose: is normal, Posterior pharynx: described as scratchy, no drooling, SpO2 on RA 100%, Voice: is normal. 07:37 Skin: Appearance: Color: erythematous, swelling, that are moderate. 08:45 ECG was reviewed by the Attending Physician. snw Vital Signs: 07:24 BP 130 / 83; Pulse 82; Resp 18 S; Temp 98.5; Pulse Ox 100% on R/A; Weight 94.8 kg; iw Height 5 ft. 6 in. (167.64 cm); Pain 6/10; 08:15 BP 131 / 66; Pulse 69; Resp 19; Pulse Ox 99% on R/A; rb1 09:11 BP 146 / 79; Pulse 84; Resp 18; Pulse Ox 98% on R/A; rb1 10:07 BP 126 / 83; Pulse 71; Resp 19; Pulse Ox 98% on R/A; rb1 07:24 Body Mass Index 33.73 (94.80 kg, 167.64 cm) iw MDM: 07:49 Patient medically screened. snw 09:04 Data reviewed: vital signs, nurses notes. Data interpreted: Pulse oximetry: on room air snw is 96 %. Interpretation: acceptable. Physician consultation: Jaswant Marr MD was called at 09:05, was contacted at 09:05, regarding admission, to the telemetry unit. patient's condition. 01/04 07:31 Order name: CBC with Diff; Complete Time: 10:05 snw 01/04 07:31 Order name: Chem 7; Complete Time: 08:37 snw 01/04 08:11 Order name: CBC Smear Scan; Complete Time: 10:05 EDMS 01/04 07:37 Order name: EKG; Complete Time: 07:38 snw 01/04 07:37 Order name: EKG - Nurse/Tech; Complete Time: 08:48 snw EC:45 Rate is 76 beats/min. Rhythm is irregularly irregular. QRS [place] is Normal. QRS interval snw is normal. QT interval is normal. No Q waves. T waves are Flattened. Clinical impression: Atrial Fibrillation. Administered Medications: 07:49 Drug: Benadryl 25 mg Route: IM; Site: right deltoid; rb1 08:08 Follow up: Response: No adverse reaction rb1 07:55 Drug: NS 0.9% 1000 ml Route: IV; Rate: 75 ml/hr; Site: right antecubital; rb1 07:55 Drug: SOLU-Medrol 125 mg Route: IVP; Site: right antecubital; rb1 08:08 Follow up: Response: No adverse reaction rb1 07:55 Drug: Pepcid 20 mg Route: IVP; Site: right antecubital; rb1 08:08 Follow up: Response: No adverse reaction rb1 Disposition: 01/05/20 09:07 Hospitalization ordered by Jaswant Marr for Observation. Preliminary diagnosis are Edema of bilateral orbit, Rash and other nonspecific skin eruption, Atrial fibrillation and flutter - Hx, Type 2 diabetes mellitus with hyperglycemia. - Bed requested for Telemetry/MedSurg (observation). - Status is Observation. iw - Condition is Stable. - Problem is an ongoing problem. - Symptoms are unchanged. Addendum: 01/06/2020 13:26 Co-signature as Attending Physician, Juvenal Mendoza MD I agree with the assessment and k dr plan of care. Signatures: Dispatcher [employer] EDMS Leanne Tony Kevin, MD MD [facility] Christianne Ventura, MOTOR PATROL OPERATOR-C MOTOR PATROL OPERATOR-Csnw Henrietta Man RN RN Sherrie Vale RN RN rb1 Corrections: (The following items were deleted from the chart) 01/04 07:34 07:31 Home Meds: carvedilol 25 mg Oral tab 1 tab; iw 07:34 07:31 Home Meds: glipizide 5 mg Oral tab once daily; iw 09:53 09:07 Hospitalization Ordered by Jaswant Marr MD for Observation. Preliminary diagnosis bd is Edema of bilateral orbit; Rash and other nonspecific skin eruption; Atrial fibrillation and flutter - Hx; Type 2 diabetes mellitus with hyperglycemia. Bed requested for Telemetry/MedSurg (observation). Status is Observation. Condition is Stable. Problem is an ongoing problem. Symptoms are unchanged. snw 11:17 09:53 01/05/2020 09:07 Hospitalization Ordered by Jaswant Marr MD for Observation. iw Preliminary diagnosis is Edema of bilateral orbit; Rash and other nonspecific skin eruption; Atrial fibrillation and flutter - Hx; Type 2 diabetes mellitus with hyperglycemia. Bed requested for Telemetry/MedSurg (observation). Status is Observation. Condition is Stable. Problem is an ongoing problem. Symptoms are unchanged. bd
[2020-01-05 10:04] LABS: Blood Morphology Comment NOT SEEN (NOT SEEN); Platelet Estimate ADEQ; Urine White Blood Cell Casts OK
[2020-01-05 11:21] VITALS: BMI 33.7
[2020-01-05] MEDS ORDERED: ONDANSETRON 4 MG/2 ML VIAL IV PRN (11:35)
[2020-01-05] MEDS ORDERED: GLUCAGON 1 MG/VIAL IM PRN (11:35)
[2020-01-05] MEDS ORDERED: ACETAMINOPHEN 500 MG TAB PO PRN (11:35)
[2020-01-05] MEDS ORDERED: D50W 25 GM/50 ML SYRINGE/VIAL IV PRN (11:35)
[2020-01-05] MEDS ORDERED: DIPHENHYDRAMINE 50 MG/ML VIAL IV PRN (11:35)
--- NOTE | 2020-01-05 11:44 | EKG ---
Test Date: 2020-01-05 Test Time: 08:43:52 Dancing Master: YARA MEASUREMENT RESULTS: Intervals: Rate: 76 CO: QRSD: 100 QT: 374 QTc: 420 [place]: P: CO: QRS: 41 T: -29 INTERPRETIVE STATEMENTS: Atrial fibrillation ST abnormality, possible digitalis effect Abnormal QRS-T angle, consider primary T wave abnormality Abnormal ECG Compared to ECG 08/02/2019 08:24:58 T-wave abnormality now present ST (T wave) deviation still present Electronically Signed On 01-05-20 11:43:01 CDT by Robert Mercado
[2020-01-05] MEDS ORDERED: PNEUMOCOCCAL VACCINE 0.5 ML IMVAC ONE (12:00)
[2020-01-05] MEDS: NA CHLORIDE 0.9% 1,000 ML IV SCH ×2 (12:26→23:12)
[2020-01-05] MEDS: INSULIN -REGULAR HUMAN 50 UNIT/0.5 ML ML SQ SCH ×3 (12:26→19:54)
--- NOTE | 2020-01-05 14:02 | P.CNS ---
Date of Consult: 01/05/20 Subjective: Patient is a 74 year old male who was seen last with orbital edema. Patient was diagnosed with acute allergic reaction from unknown source and discharged home with Benadryl and Prednisone. Patient presents today with orbital swelling and headache. Patient examined at bedside. Reports swelling got better then worsened again despite taking medications. 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 Denies getting anything in eyes, trauma, change in medication and change in food. Past medical/surgical history: COPD, NIDDM, Hypothyroidism Family History: Noncontributory Social history: Denies tobacco and alcohol use Allergies: NKDA Active Medications Acetaminophen (Tylenol -Extra Strength) 500 mg PO Q4HP PRN PRN Reason: TEMP > 100' F Stop: 02/04/20 11:36 Amlodipine Besylate (Norvasc) 5 mg PO DAILY RICH Stop: 02/05/20 09:01 Carvedilol (Coreg) 25 mg PO BID RICH Stop: 02/04/20 21:01 Dextrose (Dextrose 50% Syringe/Vial) 12.5 gm IV PRN PRN; Protocol PRN Reason: HYPOGLYCEMIA Stop: 02/04/20 11:36 Diphenhydramine HCl (Benadryl Inj) 25 mg IV Q6H PRN PRN Reason: ITCHING Stop: 02/04/20 11:36 Famotidine (Pepcid) 20 mg IV BID RICH; Protocol Stop: 02/04/20 21:01 Glipizide (Glucotrol Xl) 5 mg PO BIDWM RICH Stop: 02/04/20 17:01 Glucagon (Glucagen) 1 mg IM 1X PRN; Protocol PRN Reason: HYPOGLYCEMIA Stop: 02/04/20 11:36 Home Med (Umeclidinium [place] [Incruse Ellipta]) 1 puff PO DAILY RICH Stop: 02/05/20 09:01 Sodium Chloride (Ns 1000 Ml Ivbag) 1,000 mls @ 75 mls/hr IV .[id number] RICH Stop: 02/04/20 11:36 Last Admin: 01/05/20 12:26 Dose: 1,000 mls Documented by: Insulin Glargine (Lantus) 10 units SQ BEDTIME RICH Stop: 02/04/20 21:01 Insulin Human Regular (Novolin -R) 0 unit SQ ACHS RICH; Protocol Stop: 02/04/20 11:36 Last Admin: 01/05/20 12:26 Dose: 6 unit Documented by: Levothyroxine Sodium (Synthroid) 0.112 mg PO DAILYAC [facility] Stop: 02/05/20 06:31 Methylprednisolone Sodium Succinate (Solu-Medrol) 40 mg IV Q8HR [facility] Stop: 02/04/20 17:01 Ondansetron HCl (Zofran) 4 mg IV Q4H PRN PRN Reason: NAUSEA / VOMITING Stop: 02/04/20 11:36 Paroxetine HCl (Paxil) 20 mg PO DAILY [facility] Stop: 02/05/20 09:01 Rivaroxaban (Xarelto) 20 mg PO DAILY [facility] Stop: 02/05/20 09:01 Sodium Chloride (Normal Saline Flush) 10 ml IV BID [facility] Stop: 02/04/20 21:01 ROS: CV: Denies chest pain RESP: Denies shortness of breath/difficulty breathing HEENT: Deneis difficulty swallowing, Deneis changes in vision, reports headache : Denies dysuria GI: Denies nausea, diarrhea. Last BM today Objective: Temp Pulse Resp BP Pulse Ox 97.7 F 67 18 107/59 L 98 01/05/20 12:00 01/05/20 12:00 01/05/20 12:00 01/05/20 12:00 01/05/20 12:00 Laboratory Data (last 24 hrs) 01/05/20 07:54: Sodium 138, Potassium 4.2, BUN 12, Creatinine 0.68, Glucose 192 H 01/05/20 07:54: WBC 10.4, Hgb 14.7, Hct 45.3, Plt Count 214 ROS: General: Awake, alert, no acute distress HEENT: Periorbital edema nontender CV: S1,S2 RESP: Good breath sounds ABD: Round, firm, bowel sounds present Extremities: No edema Assessment and plan: Periorbital edema secondary to acute allergic reaction Will order head CT to rule out orbital cellulitis Currently on Benadryl and Solumedrol Diabetes mellitus, monitor glycemic control Will continue to monitor Thank you for consult Patient discussed with Dr. Whittaker
[2020-01-05] MEDS: METHYLPREDNISOLONE 40 MG INJ IV SCH (16:31)
[2020-01-05] MEDS: GLIPIZIDE S.A. 5 MG TAB PO SCH (16:32)
[2020-01-05] MEDS ORDERED: ENOXAPARIN 40 MG/0.4 ML SQ SCH (17:00)
--- NOTE | 2020-01-05 17:59 | RAD REPORT ---
EXAM DESCRIPTION: CT - Maxillofacial Wo Con - 01/05/2020 5:35 pm CLINICAL HISTORY: Orbital pain, allergic reaction, possible orbital cellulitis COMPARISON: None. TECHNIQUE: Axial 2 millimeter thick images of the orbits were obtained with sagittal and coronal rec onstruction imaging. All CT scans are performed using dose optimization technique as appropriate and may include automated exposure control or mA/KV adjustment according to patient size. FINDINGS: Each globe as a normal appearance. Optic nerves are normal in size. No edema or thickening of the extra-ocular muscles. Orbital fat shows no stranding or edema change. No displacement of the globe. There are no post septal abnormalities identifiable. The bilateral lower eyelids and adjacent soft tissues appear mildly edematous. Upper lids are not out side of normal range. No air or foreign body in the soft tissues. No acute bone finding. Paranasal sinuses are clear. IMPRESSION: No orbital cellulitis findings. Soft tissues along the lower eyelids appear edematous. This needs correlation with clinical presentat ion. Preseptal edema and periorbital cellulitis can have a similar appearance on CT imaging.
[2020-01-05] MEDS: carvediloL 25 MG TAB PO SCH (19:53)
[2020-01-05] MEDS: FAMOTIDINE 20 MG/2 ML VIAL IV SCH (19:53)
[2020-01-05] MEDS ORDERED: INSULIN GLARGINE 100 UNITS/ML SQ SCH (21:00)
[2020-01-05] MEDS ORDERED: RANITIDINE 150 MG TABLET PO SCH (21:00)
--- NOTE | 2020-01-05 21:43 | HP ---
Date of Admission: 01/05/2020 Code Status: Full. Chief Complaint: Rash. Consultants: Infectious Disease, Dr. Whittaker. History Of Present Illness: Patient is a 74-year-old male with past medical history of diabetes, PIECER D, hypothyroidism, depression, atrial fibrillation on Xarelto comes in who came into the ER several d ays ago for rash that was sudden onset occurred on of last week, approximately 5 days prior to admission. Patient was given steroids short course about 4 days and Benadryl. Patient's conditio n improved. However, once the steroids were completed, the redness swelling came back. He otherwise denies any exposure to new medications, detergents, or any other chemicals. He also reports some sc ratchy throat. The patient's symptoms are constant, moderate, progressively worsening. Therefore, devendra braxton came back into the ER for further evaluation. In the ER, his vital signs were stable, he was afebr ile. His workup revealed normal WBC count. EKG showed atrial fibrillation which is chronic for him. The patient was then referred for admission. He was given 125 mg of Solu-Medrol, Pepcid, and Benad ryl in the ER. When seen in the ER, he was awake, alert, oriented x3 in some mild distress. Past Medical History: Diabetes, depression, hypothyroidism, COPD, atrial fibrillation on anticoagula tion. Allergies: NO KNOWN DRUG ALLERGIES. Surgical History: Cholecystectomy. Medications: List reviewed. Social History: Patient is , has 3 kids. 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 Denies any ill icit drug use or alcohol use. Does smoke a pack per day, has been smoking for the past 50 days. Family History: Father and mother of diabetes complications. Review of Systems: 10-point system reviewed, negative except as per HPI. Physical Examination: Vital Signs: Blood pressure 130/83, respirations 18, temperature 98.5, heart rate 82, O2 100% on [place] m air. General: Awake, alert, oriented x3. Elderly male, in some mild distress. HEENT: Normocephalic, atraumatic. PERRLA. Patient has periorbital swelling and redness. No tongue swelling. Oropharynx is clear. Conjunctivae anicteric. Neck: Supple. No JVD. Trachea midline. CV: S1, S2, irregularly irregular. Peripheral pulses present. Respiratory: Moving air well bilaterally. No wheezing or stridor. No use of accessory muscles. Gastrointestinal: Abdomen is soft, nontender, nondistended. Positive bowel sounds. No guarding or rigidity. Extremities: No clubbing, cyanosis, or edema. No calf tenderness. Neuro: Cranial nerves 2 through 12 intact grossly. No focal neurological deficits. Speech is chuck l. Strength is symmetric bilateral upper and lower extremities. SKIN: Patient has erythema and rash on his face along with periorbital swelling, also has some ecchy mosis on upper extremities Psych: Mood is okay. Affect is full. Insight and judgment are good. Laboratory Data: Sodium 138, potassium 4.2, chloride 101, CO2 of 31, BUN 12, creatinine 0.68, glucos e 192, calcium 8.5. WBC 10.4, H 14.7, platelets 214, neutrophils 67%. EKG shows atrial fibrillation , rate of 76, possible T-wave abnormality. Assessment And Plan: A 74-year-old male with 1.Rash, unclear etiology with periorbital edema. We will start on steroids, H2 blockers with Pepcid as well as Benadryl p.r.n. Consult Infectious Disease. 2.Hypothyroidism. Continue with replacement. 3.Atrial fibrillation and flutter, chronic, permanent. Continue Xarelto. Rate controlled. 4.Diabetes mellitus, type 2 with hyperglycemia, non-insulin requiring. We will continue on sliding scale insulin with aggressive scale due to IV steroids and give 10 of Lantus depending on blood sugar levels to avoid excessive hyperglycemia due to steroids. 5.Major depressive disorder, continue SSRI. 6.Chronic obstructive pulmonary disease, chronic bronchitis. We will use albuterol p.r.n. 7.Obesity, BMI of 33. Plan: Admit patient to Med-Surg, place as observation. MAGALYS Voice ID: [id number]
[2020-01-06] MEDS: METHYLPREDNISOLONE 40 MG INJ IV SCH ×2 (00:08→08:40)
[2020-01-06 05:55] LABS: Basophils % 0.3 % (0-1.3); Hematocrit 42.1 % (39.6-49.0); Lymphocytes % 8.1 % (15.3-44.8); MPV 8.1 fL (7.6-11.3); RBC Red Blood Cell Count 4.63 M/uL (4.33-5.43)
[2020-01-06 06:12] LABS: ALT/SGPT 28 U/L (12-78); AST/SGOT 10 U/L (15-37); Albumin 2.8 g/dL (3.4-5.0); Alkaline Phosphatase 54 U/L (45-117); BUN Blood Urea Nitrogen 15 mg/dL (7-18); Bicarbonate 26 mmol/L (21-32); Bilirubin Total 0.5 mg/dL (0.2-1.0); Glucose Level 242 mg/dL (74-106); Magnesium 2.2 mg/dL (1.8-2.4); Potassium 4.2 mmol/L (3.5-5.1); Protein, Total 6.5 g/dL (6.4-8.2); Sodium Level 138 mmol/L (136-145)
[2020-01-06] MEDS ORDERED: LEVOTHYROXINE SOD 0.112 MG TAB PO SCH (06:30)
[2020-01-06 06:40] LABS: Blood Morphology Comment NOT SEEN (NOT SEEN); Platelet Estimate ADEQ; Urine White Blood Cell Casts OK
--- NOTE | 2020-01-06 08:34 | P.PN ---
Date of Service: 01/06/20 Subjective: Patient is a 74 year old male who was seen last with orbital edema. Patient was diagnosed with acute allergic reaction from unknown source and discharged home with Benadryl and Prednisone. Patient presents this admission with orbital swelling and headache. Patient examined at bedside. Periorbital edema improving. Patient denies pain, changes in vision, dyspnea, diarrhea, nausea and difficulty swallowing. Objective: Temp Pulse Resp BP Pulse Ox 97.2 F 83 12 112/53 L 95 01/06/20 04:00 01/06/20 04:00 01/06/20 04:00 01/06/20 04:00 01/06/20 04:00 Labs: Na 138, K 4.2, BUN 15, Creat 0.71, Albumin 2.8, WBC 12.[address] 01/04: EXAM DESCRIPTION: CT - Maxillofacial Wo Con - 01/05/2020 5:35 pm CLINICAL HISTORY: Orbital pain, allergic reaction, possible orbital cellulitis COMPARISON: None. TECHNIQUE: Axial 2 millimeter thick images of the orbits were obtained with sagittal and coronal reconstruction imaging. All CT scans are performed using dose optimization technique as appropriate and may include automated exposure control or mA/KV adjustment according to patient size. FINDINGS: Each globe as a normal appearance. Optic nerves are normal in size. No edema or thickening of the extra-ocular muscles. Orbital fat shows no stranding or edema change. No displacement of the globe. There are no post septal abnormalities identifiable. The bilateral lower eyelids and adjacent soft tissues appear mildly edematous. Upper lids are not outside of normal range. No air or foreign body in the soft tissues. No acute bone finding. Paranasal sinuses are clear. IMPRESSION: No orbital cellulitis findings. Soft tissues along the lower eyelids appear edematous. This needs correlation with clinical presentation. Preseptal edema and periorbital cellulitis can have a similar appearance on CT imaging. ROS: General: Awake, alert, no acute distress HEENT: Periorbital edema nontender CV: S1,S2 RESP: Good breath sounds ABD: Round, firm, bowel sounds present Extremities: No edema Assessment and plan: Periorbital edema secondary to acute allergic reaction from unknown source Maxillofacial CT shows no signs of orbital cellulitis Diabetes mellitus, monitor glycemic control Protein calorie malnourished, Albumin 2.8 Will order procalcitonin, if negative from ID standpoint patient can be discharged home Continue current treatment plan Will continue to monitor Patient discussed with Dr. Whittaker
[2020-01-06] MEDS: GLIPIZIDE S.A. 5 MG TAB PO SCH (08:39)
[2020-01-06] MEDS: carvediloL 25 MG TAB PO SCH (08:40)
[2020-01-06] MEDS: INSULIN -REGULAR HUMAN 50 UNIT/0.5 ML ML SQ SCH ×2 (08:40→12:24)
[2020-01-06] MEDS: FAMOTIDINE 20 MG/2 ML VIAL IV SCH (08:40)
[2020-01-06] MEDS ORDERED: RIVAROXABAN 20 MG TABLET PO SCH (09:00)
[2020-01-06] MEDS ORDERED: AMLODIPINE 5 MG TAB PO SCH (09:00)
[2020-01-06] MEDS ORDERED: HOME MED 1 EA UNK (Umeclidinium Bromide [Incruse Ellipta] 1 PUFF) PO SCH (09:00)
[2020-01-06] MEDS ORDERED: PARoxetine HCL 10 MG TAB PO SCH (09:00)
[2020-01-06 09:44] VITALS: O2SAT 97
[2020-01-06] MEDS: NA CHLORIDE 0.9% 1,000 ML IV SCH (12:25)
[2020-01-06 16:39] VITALS: BP 145/70; TEMP 97.8
--- NOTE | 2020-01-07 01:29 | DS ---
Date of Discharge: 01/06/2020 Consultants: Dr. Whittaker with Infectious Disease. Discharge Diagnoses: 1.Rash. 2.Periorbital edema. 3.Acute allergic reaction. 4.Diabetes mellitus type 2 with hyperglycemia non-insulin requiring. 5.Major depressive disorder on SSRI. 6.Chronic obstructive pulmonary disease, chronic bronchitis, stable. 7.Atrial fibrillation and flutter, chronic, permanent, on Xarelto. 8.Hypothyroidism. 9.Obesity, BMI of 33. Hospital Course: Patient is a 74-year-old male with past medical history of diabetes, COPD, hypothyr oidism, depression, atrial fibrillation on Xarelto, comes in after failing therapy on a short course of steroids for rash and periorbital swelling and redness. It is unclear what the patient was expose d to regarding the onset of his rash. He denied any new medications, detergents, other chemicals or exposure at work. Patient was started on IV Solu-Medrol, was given Benadryl p.r.n. as well as H2 blo ckers with Pepcid. Patient had good response. Vital signs remained stable. There were no signs of sepsis. Procalcitonin was negative. He had minimally elevated white blood cell count following high -dose steroids. He was screened for COVID as well. CT facial sinus was done to rule out any periorb ital cellulitis. There were no findings present to suggest orbital cellulitis. Patient improved wit hout any IV antibiotics. ID did not recommend any antibiotics on discharge. Patient was counseled r egarding his blood glucose levels, which will be elevated with steroids. Patient was doing well. Sy mptoms improved. There was no shortness of breath, difficulty speaking. He was then discharged home in a stable condition. Activity: As tolerated. Medications: As per medication reconciliation list. Finish off the taper dose of steroids and use B enadryl as needed and Pepcid. Diet: Diabetic. Followup: Follow up with primary care physician in 2-3 days. Follow up with Infectious Disease, Dr. Whittaker as needed. Return to ER for worsening condition. Physical Examination: General: Awake, alert, oriented x3. Elderly male, obese. CV: S1, S2. Respiratory: Moving air well bilaterally. Abdomen: Soft, nontender, nondistended. Positive bowel sounds. Extremities: No clubbing, cyanosis, or edema. Skin: The patient has minimal erythema on the face. Periorbital swelling has decreased significantl y. Some ecchymoses on the upper extremities due to the blood thinners. Neurologic: Nonfocal. SA/MODL Voice ID: [id number] Report ID: [id number]
== END 2020-01-06 15:43 | disposition home or self-care (01) ==
LOC: ER 07:07 → ERHOLD 09:19 → 2ND 10:58
PROVIDERS: ADMIT Family Medicine; ATTEND Family Medicine
DX: T78.40XA Allergy, unspecified, initial encounter (principal); X58.XXXA Exposure to other specified factors, initial encounter; H05.223 Edema of bilateral orbit; R21 Rash and other nonspecific skin eruption; E11.65 Type 2 diabetes mellitus with hyperglycemia; E03.9 Hypothyroidism, unspecified; J44.9 Chronic obstructive pulmonary disease, unspecified; I48.20 Chronic atrial fibrillation, unspecified; E46 Unspecified protein-calorie malnutrition; Z11.59 Encounter for screening for other viral diseases; F32.9 Major depressive disorder, single episode, unspecified; F17.210 Nicotine dependence, cigarettes, uncomplicated; Z79.84 Long term (current) use of oral hypoglycemic drugs; Z79.01 Long term (current) use of anticoagulants; Z79.899 Other long term (current) drug therapy; E66.9 Obesity, unspecified; Z68.33 Body mass index [BMI] 33.0-33.9, adult
CPT/HCPCS: 93005; 85025 ×2; 80048; 36415 ×2; 83735; 82947 ×5; 80053; 84145; 70486; 94760 ×2; 96375; 96372; 96374; 99285; U0002; J1200; J7030 ×4; J2930; J2920 ×3; G0378 ×3; J1815

== ENCOUNTER 2021-10-23 11:05 | Emergency (ER) | payer OTHER ==
--- OUTSIDE RECORDS SUMMARY | 2021-10-23 11:08 | XMS REPORT | Continuity of Care Document ---
:1945 Author Organization [facility] t Address [address] [place] [address] Care Team Providers Name Role Phone Becca Salinas DO Primary Care Physician BECCA SALINAS Attending Clinician Unavailable LAB90 Attending Clinician Unavailable Becca Salinas DO Attending Clinician Payers Payer Name Policy Type Policy Number Effective Date Expiration Date Nataly morejon [facility] 7 [id number] 2021 CLASSIC NO PREMIUM 00:00:00 R2T Problems Condition Condition Condition Status Onset Resolution Last Treating Co mments Source Name Details Category Date Date Treatment Clinician Date Chronic Chronic Disease Active Anai obstructiv obstructiv 2-18 Se ybold e e 00:00: pulmonary pulmonary 00 disease disease Obesity Obesity Disease Active Anai (BMI (BMI 2-18 Seybold 30.0-34.9) 30.0-34.9) 00:00: 00 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 Seybol d 00:00: 00 Sleep Sleep Disease Active Anai apnea apnea Seybold Hypertyros Hypertyros Disease Active K elsey inemia inemia Seybold Hypertensi Hypertensi Disease Active K elsey on on Seybold Atrial Atrial Disease Active Anai fibrillati fibrillati Se ybold on on Hypothyroi Hypothyroi Disease Active Gaby elsey dism dism Seybold Diabetes Diabetes Disease Active Kelse y Seybold Allergies, Adverse Reactions, Alerts This patient has no known allergies or adverse reactions. Social History Social Habit Start Date Stop Date Quantity Comments Source History of tobacco Cigarette Smoker Anai Nieto use Education 2021-09-15 2021-09-15 5 Anai Romeobartolome 00:00:00 00:00:00 Cigarettes smoked 2021-09-15 2021-09-15 Anai Emilia current (pack per 00:00:00 00:00:00 day) - Reported Cigarette 2021-09-15 2021-09-15 Anaizulma Nieto pack-years 00:00:00 00:00:00 Tobacco use and 2021-09-15 2021-09-15 Smokeless tobacco Richard Nieto exposure 00:00:00 00:00:00 non-user Alcohol intake 2021-09-15 2021-09-15 Ex-drinker Anaizulma Aguayo bold 00:00:00 00:00:00 (finding) Sex [birth year] Anai puente 00:00:00 00:00:00 Smoking Status Start Date Stop Date Source Smokes tobacco daily 2021-09-15 00:00:00 Anai Emilia Medications Ordered Filled Start Stop Current Ordering Indication Dosage Frequency Signature Comments Components Source Medication Medication Date Date Medication? Clinician (SIG) Name Name Carvedilol 25mg Take 25 mg Anai 25 MG oral 09-15 by mouth 2 Se ybold Tablet 14:30: 00:00 times 25 :00 daily (with meals) Umeclidiniu Yes Inhale 1 Richard hammond m [place] 2-18 inhalation Seyb old (Incruse 14:18: into the Ellipta) 48 lungs 62.5 daily MCG/INH inhalation AEROSOL POWDER, BREATH ACTIVATED Carvedilol Yes [id number] 25mg Take 1 K elsey 25 MG oral 2-18 tablet (25 Sey bold Tablet 00:00: mg total) 00 by mouth 2 times daily (with meals) Empaglifloz Yes [id number] 1{tbl} Take 1 Anai in 2-18 tablet by Seybold (Jardiance) 00:00: mouth 10 MG oral 00 daily Tablet Levothyroxi Yes 112ug Take 112 K elsey ne Sodium 2-15 mcg by Seybold 112 MCG 00:00: mouth oral Tablet 00 every morning ON AN EMPTY STOMACH Metformin Yes 1000mg Take 1,000 Anai HCl 1000 MG 2-15 mg by Seybold oral Tablet 00:00: mouth 2 00 times daily (with meals) Xarelto 20 Yes TAKE 1 Kelse y MG oral 1-21 TABLET BY Seybold Tablet 00:00: MOUTH 00 EVERY DAY WITH EVENING MEAL glipiZIDE Yes 10mg Take 10 mg Ke lsey 10 MG oral 1-19 by mouth 2 Sey bold Tablet 00:00: times 00 daily Spironolact Yes 25mg Take 25 mg Anai one 25 MG 1-08 by mouth Seybol d oral Tablet 00:00: daily 00 Paroxetine Yes 20mg Take 20 mg K elsey HCl 20 MG 1-05 by mouth Seybol d oral Tablet 00:00: every 00 morning Jardiance 2020-07- No 1{tbl} Take 1 Rakan sey 10 MG oral 2-29 02-18 tablet by Sey bold Tablet 00:00: 00:00 mouth 00 :00 daily Omeprazole 2020-07 Yes 20mg Take 20 mg K elsey 20 MG oral 2-24 by mouth Seybo ld Delayed 00:00: daily Release 00 Capsule Immunizations Ordered Immunization Filled Immunization Date Status Commen ts Source Name Name Influenza Virus 2021-02-26 Completed Anai Crowder ybbartolome Vaccine, High Dose, 00:00:00 Age 65 And Up Shingles IM 2021-02-26 Completed Anai Seybol d (Shingrix) 00:00:00 Vital Signs Vital Name Observation Time Observation Value Comments Source Systolic blood pressure 2021-09-15 19:47:00 103 mm[Hg] Anai Seybold Diastolic blood 2021-09-15 19:47:00 67 mm[Hg] Kelse y Seybold pressure Heart rate 2021-09-15 19:47:00 88 /min Anai Ingram martineboshonda Body temperature 2021-09-15 19:47:00 36.44 Tiki Samia ey Seybold Respiratory rate 2021-09-15 19:47:00 15 /min Samia ey Seybold Body height 2021-09-15 19:47:00 167.6 cm Anai coelhoshonda Body weight 2021-09-15 19:47:00 91.627 kg Anai pang BMI 2021-09-15 19:47:00 32.60 kg/m2 Anai Ingram poly Procedures This patient has no known procedures. Encounters Start End Encounter Admission Attending Care Care Encounter Source Date/Time Date/Time Type Type Clinicians Facility Department ID 2021-12-08 2021-12-08 Outpatient ANAI SALINAS [id number] Anai 08:00:00 08:00:00 BECCA Seybol d 2021-09-25 2021-09-25 Outpatient ANAI SALINAS [id number] Anai 00:00:00 00:00:00 BECCA Seybol d 2021-09-22 2021-09-22 Outpatient LAB90 ANAI MORGAN [id number] Anai 08:10:00 08:10:00 Seybol d 2021-09-20 2021-09-20 Outpatient ANAI SALINAS [id number] Anai 00:00:00 00:00:00 BECCA Seybol d 2021-09-18 2021-09-18 Outpatient ANAI SALINAS [id number] Anai 00:00:00 00:00:00 BECCA Seybol d 2021-09-18 2021-09-18 Outpatient ANAI SALINAS [id number] Anai 00:00:00 00:00:00 BECCA Seybol d 2021-09-15 2021-09-15 Office Jorge Salinas [id number] Anai 14:45:00 15:30:00 Visit Becca Boyd [id number] Se kwame [id number] Results This patient has no known results.
[2021-10-23] MEDS ORDERED: ONDANSETRON 4 MG (ODT) TAB ONE (12:41)
[2021-10-23] MEDS ORDERED: MORPHINE 4 MG/ML SYR ONE (12:41)
--- NOTE | 2021-10-23 12:42 | ER ---
Nurse's Notes [facility] Name: Juan Nelson Age: 76 yrs Sex: Male : 1945 Arrival Date: 10/23/2021 Time: 11:06 Bed 5 Private MD: Raymundo Marie Diagnosis: Tinea pedis Presentation: 10/23 11:11 Chief complaint: Patient states: my RIGHT foot is hurting for about 2 weeks. i checked tw2 with my doctor and he didn't change nothing. but i got no sleep. and my left foot is hurting too. Coronavirus screen: At this time, the client does not indicate any symptoms associated with coronavirus-19. Ebola Screen: Patient denies travel to an Ebola-affected area in the 21 days before illness onset. Initial Sepsis Screen: Does the patient meet any 2 criteria? No. Patient's initial sepsis screen is negative. Does the patient have a suspected source of infection? No. Patient's initial sepsis screen is negative. Risk Assessment: Do you want to hurt yourself or someone else? Patient reports no desire to harm self or others. Onset of symptoms was October 23, 2021. 11:11 Method Of Arrival: Ambulatory tw2 11:11 Acuity: KRISTEL 3 tw2 Triage Assessment: 11:15 General: Appears in no apparent distress. obese, Behavior is calm, cooperative, tw2 appropriate for age. Pain: Complains of pain in right foot. Historical: - Allergies: 11:13 No Known Drug Allergies; tw2 - Home Meds: 11:13 omeprazole 20 mg Oral cpDR 1 cap once daily [Active]; paroxetine HCl 20 mg Oral tab 1 tw2 tab once daily [Active]; Jardiance 10 mg oral tab 1 tab once daily [Active]; levothyroxine 112 mcg tab 1 tab once daily [Active]; spironolactone 25 mg Oral tab 1 tab once daily [Active]; Xarelto 20 mg Oral tab 1 tab once daily [Active]; glipizide 10 mg oral tab 1 tab 2 times per day [Active]; metformin 1,000 mg Oral tab 1 tab 2 times per day [Active]; carvedilol 25 mg Oral tab 1 tab 2 times per day [Active]; - PMHx: 11:13 COPD; Diabetes - NIDDM; Hypothyroidism; tw2 - Immunization history:: Adult Immunizations. - Social history:: Smoking status: Patient reports the use of cigarette tobacco products, smokes one-half pack cigarettes per day. Screenin:30 Abuse screen: Denies threats or abuse. Nutritional screening: No deficits noted. tw2 Tuberculosis screening: No symptoms or risk factors identified. Fall Risk None identified. Assessment: 12:15 Reassessment: No changes from previously documented assessment. Patient and/or family ll1 updated on plan of care and expected duration. Pain level reassessed. Patient is alert, oriented x 3, equal unlabored respirations, skin warm/dry/pink. 12:54 Reassessment: No changes from previously documented assessment. Patient and/or family ll1 updated on plan of care and expected duration. Pain level reassessed. Patient is alert, oriented x 3, equal unlabored respirations, skin warm/dry/pink. Vital Signs: 11:11 BP 143 / 72; Pulse 87; Resp 17; Temp 97.8(TE); Pulse Ox 100% on R/A; Weight 91.63 kg tw2 (R); Height 5 ft. 6 in. (167.64 cm); 12:54 BP 143 / 72; Pulse 87; Resp 17; Pulse Ox 100% ; ll1 11:11 Body Mass Index 32.60 (91.63 kg, 167.64 cm) tw2 ED Course: 11:06 Patient arrived in ED. am2 11:06 Raymundo Marie DO is Private Physician. am2 11:13 Triage completed. tw2 11:15 Arm band placed on. tw2 11:15 Bed in low position. Call light in reach. Adult w/ patient. Pulse ox on. NIBP on. tw2 11:16 Lazara Ferraro, MELVIN is Primary Nurse. ll1 11:16 Patient placed in an exam room, on a stretcher. ll1 11:17 Silvano Beck NP is PHCP. pm1 11:17 Geoff Patel MD is Attending Physician. pm1 12:55 No provider procedures requiring assistance completed. Patient did not have IV access ll1 during this emergency room visit. Administered Medications: 12:42 Drug: morphine 4 mg {Note: rass 0.} Route: IM; Site: left gluteus; ll1 12:54 Follow up: Response: No adverse reaction; Pain is decreased; RASS: Alert and Calm (0) ll1 12:42 Drug: Ondansetron 4 mg Route: PO; 1 12:54 Follow up: Response: No adverse reaction ll1 Outcome: 12:41 Discharge ordered by MD. pm1 12:55 Discharged to home ambulatory. ll1 12:55 Condition: stable 12:55 Discharge instructions given to patient, family, Instructed on discharge instructions, follow up and referral plans. medication usage, Demonstrated understanding of instructions, follow-up care, medications, Prescriptions given X 1. 12:55 Patient left the ED. 1 Signatures: Silvano Beck NP [employer] INSTRUCTOR pm1 Samira Whitmore RN RN tw2 Kiki Kellogg am2 Lazara Ferraro, RN RN 1
--- NOTE | 2021-10-23 12:42 | EDPHYS ---
Physician Documentation [facility] Name: Juan Nelson Age: 76 yrs Sex: Male : 1945 Arrival Date: 10/23/2021 Time: 11:06 Bed 5 Private MD: Raymundo Marie ED Physician Geoff Patel HPI: 10/23 12:41 This 76 yrs old Male presents to ER via Ambulatory with complaints of Foot pm1 Pain. 12:41 The patient presents with pain, that is acute. The complaints affect the right foot and pm1 left foot. Context: The problem was sustained at an unknown site, resulted from an unknown cause, the patient can fully bear weight, the patient is able to ambulate. Onset: The symptoms/episode began/occurred 3 week(s) ago. Modifying factors: The symptoms are alleviated by nothing. the symptoms are aggravated by nothing. 12:41 Associated signs and symptoms: Pertinent negatives calf tenderness, fever, numbness, pm1 tingling. Treatment prior to arrival includes: He has prescription, prescription bottle with him, for hydrocodone from buffet attendant for his foot pain. Severity of symptoms: in the emergency department the symptoms are unchanged. The patient has not experienced similar symptoms in the past. The patient has been recently seen by a physician: with similar presenting complaints, Seen by his buffet attendant on 10/12/2021. Historical: - Allergies: 11:13 No Known Drug Allergies; tw2 - Home Meds: 11:13 omeprazole 20 mg Oral cpDR 1 cap once daily [Active]; paroxetine HCl 20 mg Oral tab 1 tw2 tab once daily [Active]; Jardiance 10 mg oral tab 1 tab once daily [Active]; levothyroxine 112 mcg tab 1 tab once daily [Active]; spironolactone 25 mg Oral tab 1 tab once daily [Active]; Xarelto 20 mg Oral tab 1 tab once daily [Active]; glipizide 10 mg oral tab 1 tab 2 times per day [Active]; metformin 1,000 mg Oral tab 1 tab 2 times per day [Active]; carvedilol 25 mg Oral tab 1 tab 2 times per day [Active]; - PMHx: 11:13 COPD; Diabetes - NIDDM; Hypothyroidism; tw2 - Immunization history:: Adult Immunizations. - Social history:: Smoking status: Patient reports the use of cigarette tobacco products, smokes one-half pack cigarettes per day. ROS: 12:41 Constitutional: Negative for fever, chills, and weight loss, Cardiovascular: Negative pm1 for chest pain, palpitations, and edema, Respiratory: Negative for shortness of breath, cough, wheezing, and pleuritic chest pain, Abdomen/GI: Negative for abdominal pain, nausea, vomiting, diarrhea, and constipation, MS/Extremity: Negative for injury and deformity. 12:41 Neuro: Negative for headache, weakness, numbness, tingling, and seizure. 12:41 Skin: Positive for rash to bilateral feet and pain. 12:41 All other systems are negative. Exam: 12:41 Constitutional: This is a well developed, well nourished patient who is awake, alert, pm1 and in no acute distress. Head/Face: Normocephalic, atraumatic. 12:41 MS/ Extremity: Pulses equal, no cyanosis. Neurovascular intact. Full, normal range of motion. 12:41 Cardiovascular: Exam negative for acute changes, Rate: normal, Rhythm: regular, Pulses: no pulse deficits are appreciated. 12:41 Respiratory: Exam negative for acute changes, respiratory distress, shortness of breath. 12:41 Skin: Appearance: normal except for affected area, consistent with tinea pedis, on the right leg and right foot and left foot. 12:41 Neuro: Exam negative for acute changes, Orientation: is normal, Mentation: is normal, Motor: is normal, moves all fours. Vital Signs: 11:11 BP 143 / 72; Pulse 87; Resp 17; Temp 97.8(TE); Pulse Ox 100% on R/A; Weight 91.63 kg tw2 (R); Height 5 ft. 6 in. (167.64 cm); 12:54 BP 143 / 72; Pulse 87; Resp 17; Pulse Ox 100% ; ll1 11:11 Body Mass Index 32.60 (91.63 kg, 167.64 cm) tw2 MDM: 11:18 Patient medically screened. [facility] 12:41 Data reviewed: vital signs. Data interpreted: Pulse oximetry: on room air is 100 %. pm1 Interpretation: normal. Counseling: I had a detailed discussion with the patient and/or guardian regarding: the historical points, exam findings, and any diagnostic results supporting the discharge/admit diagnosis, the need for outpatient follow up, a buffet attendant, to return to the emergency department if symptoms worsen or persist or if there are any questions or concerns that arise at home. 12:41 ED course: Patient with appointment today with his buffet attendant at 130. Therefore will pm1 discharge to patient home with antifungal cream for tinea pedis. Patient already has prescription for hydrocodone from the buffet attendant. Patient requested pain medicine in the ER here. Will give pain medicine and discharge so he can follow-up with buffet attendant today. Administered Medications: 12:42 Drug: morphine 4 mg {Note: rass 0.} Route: IM; Site: left gluteus; ll1 12:54 Follow up: Response: No adverse reaction; Pain is decreased; RASS: Alert and Calm (0) ll1 12:42 Drug: Ondansetron 4 mg Route: PO; ll1 12:54 Follow up: Response: No adverse reaction ll1 Disposition Summary: 10/23/21 12:41 Discharge Ordered Location: Home pm1 Problem: new pm1 Symptoms: have improved pm1 Condition: Stable pm1 Diagnosis - Tinea pedis pm1 Followup: pm1 - With: Emergency Department - When: As needed - Reason: Worsening of condition Followup: pm1 - With: Private Physician - When: 2 - 3 days - Reason: Recheck today's complaints, Continuance of care, Re-evaluation by your physician Discharge Instructions: - Discharge Summary Sheet pm1 - Athlete's Foot pm1 Forms: - Medication Reconciliation Form pm1 - Thank You Letter pm1 - Antibiotic Education pm1 - Prescription Opioid Use pm1 Prescriptions: - Clotrimazole 1 % Topical Cream - Apply to affected area 1 application by TOPICAL route every 12 hours; 15 gram; pm1 Refills: 0, Product Selection Permitted Addendum: 10/25/2021 07:19 Co-signature as Attending Physician, Geoff Patel MD I agree with the assessment and c jean plan of care. Signatures: Geoff Patel MD MD cha Marinas, Patrick, NP ANALYTICAL CONSULTANT pm1 Samira Whitmore RN RN tw2 Lazara Ferraro RN RN ll1
[2021-10-23 13:22] VITALS: BP 143/72; TEMP 97.8; O2SAT 100
== END 2021-10-23 12:55 | disposition home or self-care (01) ==
LOC: ER 11:05
DX: B35.3 Tinea pedis (principal); E11.9 Type 2 diabetes mellitus without complications; E03.9 Hypothyroidism, unspecified; J44.9 Chronic obstructive pulmonary disease, unspecified; Z79.01 Long term (current) use of anticoagulants
CPT/HCPCS: 76700; 96372; 99283

== ENCOUNTER 2021-10-28 07:13 | Emergency (ER) | payer OTHER ==
--- OUTSIDE RECORDS SUMMARY | 2021-10-28 07:16 | XMS REPORT | Continuity of Care Document ---
:1945 Author Organization [facility] t Address [address] [place] [address] Care Team Providers Name Role Phone Becca Salinas DO Primary Care Physician BECCA SALINAS Attending Clinician Unavailable LAB90 Attending Clinician Unavailable Becca Salinas DO Attending Clinician Payers Payer Name Policy Type Policy Number Effective Date Expiration Date Nataly morejon [facility] 7 [id number] 2021 CLASSIC NO PREMIUM 00:00:00 R2T Problems [...] Umeclidiniu Yes Inhale 1 Richard hammond m [place] 2-18 inhalation Seyb old (Incruse 14:18: into the Ellipta) 48 lungs 62.5 daily MCG/INH inhalation AEROSOL POWDER, BREATH ACTIVATED Carvedilol Yes [id number] 25mg Take 1 K elsey 25 MG oral 2-18 tablet (25 Sey bold Tablet 00:00: mg total) 00 by mouth 2 times daily (with meals) Empaglifloz Yes [id number] 1{tbl} Take 1 Anai in 2-18 tablet [...] Department ID 2021-12-08 2021-12-08 Outpatient ANAI SALINAS [id number] Anai 08:00:00 08:00:00 BECCA Seybol d 2021-09-25 2021-09-25 Outpatient ANAI SALINAS [id number] Anai 00:00:00 00:00:00 BECCA Seybol d 2021-09-22 2021-09-22 Outpatient LAB90 ANAI MORGAN [id number] Anai 08:10:00 08:10:00 Seybol d 2021-09-20 2021-09-20 Outpatient ANAI SALINAS [id number] Anai 00:00:00 00:00:00 BECCA Seybol d 2021-09-18 2021-09-18 Outpatient ANAI SALINAS [id number] Anai 00:00:00 00:00:00 BECCA Seybol d 2021-09-18 2021-09-18 Outpatient ANAI SALINAS [id number] Anai 00:00:00 00:00:00 BECCA Seybol d 2021-09-15 2021-09-15 Office Jorge Salinas [id number] Anai 14:45:00 15:30:00 Visit Becca Boyd [id number] Se kwame [id number] Results This patient has no known results.
[2021-10-28 07:58] LABS: Absolute Lymphocytes (CBC) 2.1 K/uL (0.7-4.9); Hematocrit 34.9 % (39.6-49.0); Lymphocytes % 28.7 % (15.3-44.8); MPV 7.2 fL (7.6-11.3); RBC Red Blood Cell Count 4.63 M/uL (4.33-5.43)
[2021-10-28 08:01] LABS: Protime INR 1.33
[2021-10-28 08:15] LABS: Albumin 3.2 g/dL (3.4-5.0); Bilirubin Total 0.7 mg/dL (0.2-1.0); Potassium 4.8 mmol/L (3.5-5.1); Protein, Total 7.1 g/dL (6.4-8.2)
[2021-10-28] MEDS ORDERED: FUROSEMIDE 20 MG/ 2ML VIAL ONE ×2 (08:52→09:27)
--- NOTE | 2021-10-28 08:53 | RAD REPORT ---
EXAM DESCRIPTION: CT - Abdomen Pelvis W Contrast - 10/28/2021 8:30 am CLINICAL HISTORY: Abd pain;Abdominal distention COMPARISON: Abdomen Pelvis W Contrast dated 08/02/2019 TECHNIQUE: Biphasic, helical CT imaging of the abdomen and pelvis was performed following 100 ml non -ionic IV contrast. No oral contrast administered. All CT scans are performed using dose optimization technique as appropriate and may include automated exposure control or mA/KV adjustment according to patient size. FINDINGS: Small right pleural effusion is present similar to the 2020 study. Adjacent atelectasis is present in the posterior right lower lobe. Cardiomegaly matches the prior study. No pericardial effu titus. Liver attenuation indicates fatty infiltration. There is a nodular liver capsule contour that could i ndicate underlying cirrhosis or diffuse hepatic parenchymal disease. A focal lesion of the liver is n ot identified. No portal vein thrombus. Gallbladder is absent. No abnormal biliary tree dilatation. Pancreatic parenchymal atrophy changes are present. No pancreatic or peripancreatic acute finding. No splenomegaly or focal splenic finding. Symmetric renal function is seen with no hydronephrosis or suspicious renal mass. No pyelonephritis o r acute parenchymal process. The bladder base there is approximately 2.5-3 cm area of lobulated soft tissue. This is probably from the prostate gland projecting into the bladder base. No measurable hinojosa ge from the 2020 study. Even though stable, the possibility of a bladder base mass at the trigone can not be excluded. No adrenal abnormalities. No stomach or small bowel acute finding. Sigmoid diverticulosis present without diverticulitis. Mild diverticulosis elsewhere in the colon. Appendix is not clearly defined. Appendicitis is not suspected . No free air or pneumatosis. Small amount of ascites is present similar to slightly greater than 2020. This is not a drainable quantity of fluid. Minimal hernia at the umbilicus is noted similar to comp arison. No significant abdominal wall finding. No bulky lymphadenopathy or omental thickening. No suspicious bony findings. Bony degenerative changes are present. The partial compression fracture deformity at T12 has not change from the prior study. IMPRESSION: No bowel obstruction, free air or other surgically emergent finding. Small amount of ascites present similar or slightly greater than 2020 study. This is not a drainable quantity of fluid. Liver findings are consistent with cirrhosis or diffuse hepatic parenchymal disease. A focal liver le titus is not seen. Cardiomegaly with small right pleural effusion, both similar to 2020. Small lobulated mass near the trigone of the bladder is believed to be from the prostate gland and si milar to the 2020 study. Bladder origin mass is not entirely excluded but lesser in likelihood. Corre lation be made with PSA values and UA findings. Follow-up as clinical findings warrant.
--- NOTE | 2021-10-28 09:03 | RAD REPORT ---
EXAM DESCRIPTION: RAD - Chest Single View - 10/28/2021 8:54 am CLINICAL HISTORY: DYSPNEA COMPARISON: Portable 08/02/2019 TECHNIQUE: AP portable chest image was obtained 10/28/2021 8:54 am . FINDINGS: No peripheral consolidation or mass. Interstitial pattern is mildly prominent but not nahed rly different. Pronounced cardiomegaly is again noted. Upper lobe vasculature within normal limits. No measurable pl eural effusion and no pneumothorax. No acute bony abnormality seen. No acute aortic findings suspecte d. IMPRESSION: Patient has pronounced but stable cardiomegaly. Mild failure or volume overload could be masked by this baseline long and parenchymal pattern.
--- NOTE | 2021-10-28 09:18 | ER ---
Nurse's Notes [facility] Name: Juan Nelson Age: 76 yrs Sex: Male : 1945 Arrival Date: 10/28/2021 Time: 07:16 Bed 6 Private MD: Raymundo Marie Diagnosis: Chronic combined systolic (congestive) and diastolic (congestive) heart failure;Other ascites;Pleural effusion, not elsewhere classified Presentation: 10/28 07:19 Chief complaint: Patient states: abd swelling that began 1 week ago, is starting to ss make patient short of breath. Daughter reports that patient has a hx of COPD and ascites, had an ultrasound on Saturday, but do not yet have the results. Coronavirus screen: Client denies travel out of the [place] in the last 14 days. Ebola Screen: Patient denies exposure to infectious person. Patient denies travel to an Ebola-affected area in the 21 days before illness onset. Initial Sepsis Screen: Does the patient meet any 2 criteria? No. Patient's initial sepsis screen is negative. Does the patient have a suspected source of infection? Yes: Other: Pt has an infected toe, but recently began oral Bactrim for this. Risk Assessment: Do you want to hurt yourself or someone else? Patient reports no desire to harm self or others. Onset of symptoms was October 21, 2021. 07:19 Method Of Arrival: Ambulatory ss 07:19 Acuity: KRISTEL 3 Triage Assessment: 08:21 General: Appears in no apparent distress. Behavior is calm, cooperative. jg9 Historical: - Allergies: 07:36 No Known Allergies; ss - Home Meds: 07:36 carvedilol 25 mg Oral tab 1 tab 2 times per day [Active]; metformin 1,000 mg Oral tab 1 ss tab 2 times per day [Active]; spironolactone 25 mg Oral tab 1 tab once daily [Active]; Jardiance 10 mg Oral tab 1 tab once daily [Active]; glipizide 10 mg Oral tab 1 tab 2 times per day [Active]; levothyroxine 112 mcg tab 1 tab once daily [Active]; omeprazole 20 mg Oral cpDR 1 cap once daily [Active]; paroxetine HCl 20 mg Oral tab 1 tab once daily [Active]; Xarelto 20 mg Oral tab 1 tab once daily [Active]; Bactrim [Active]; [place] [Active]; - PMHx: 07:36 COPD; Diabetes - NIDDM; Hypothyroidism; ss - Immunization history:: Client reports receiving the 2nd dose of the Covid vaccine. - Social history:: Smoking status: Patient reports the use of cigarette tobacco products, smokes one-half pack cigarettes per day. - Family history:: not pertinent. - Hospitalizations: : No recent hospitalization is reported. Screenin:20 Abuse screen: Denies threats or abuse. Denies injuries from another. Nutritional jg9 screening: No deficits noted. Tuberculosis screening: No symptoms or risk factors identified. Fall Risk None identified. Assessment: 08:20 Reassessment: No changes from previously documented assessment. Pain: Complains of pain jg9 in abdomen. GI: Bowel sounds present X 4 quads. Abd is soft X 4 quads distended. 09:58 Reassessment: confirmed pt home medications and pt does not have LAsix. ED provider jean gave prescription and pt to f/u with PCP. Vital Signs: 07:19 BP 157 / 85; Pulse 75; Resp 20; Temp 98.4(O); Pulse Ox 97% on R/A; Weight 92.99 kg; ss Pain 0/10; 07:45 BP 120 / 90; Pulse 48; Resp 17 S; Pulse Ox 98% on R/A; jg9 08:15 BP 118 / 85; Pulse 70; Resp 17 S; Pulse Ox 97% on R/A; jg9 ED Course: 07:16 Patient arrived in ED. am2 07:16 Raymundo Marie DO is Private Physician. am2 07:21 Donny Stein MD is Attending Physician. rn 07:34 Maia Menjivar RN is Primary Nurse. jg9 07:36 Triage completed. ss 07:36 Arm band placed on left wrist. ss 07:38 Patient has correct armband on for positive identification. Bed in low position. Call ss light in reach. Side rails up X 1. 08:32 CT Abd/Pelvis - IV Contrast Only In Process Unspecified. EDMS 08:55 urinal placed at bedside, side rail down X1 per family request (sitting at jg9 bedside-advised to use call button if additional assistance is needed. 08:56 XRAY Chest (1 view) In Process Unspecified. EDMS 09:17 Robert Mercado MD is Referral Physician. rn 09:59 No provider procedures requiring assistance completed. Inserted saline lock: 20 gauge jean in right antecubital area, using aseptic technique. IV discontinued, intact, Pressure dressing applied. Administered Medications: 08:52 Drug: Lasix (furosemide) 20 mg Route: IVP; Infused Over: 2 mins; Site: right jg9 antecubital; 09:26 Follow up: Response: No adverse reaction jean 09:26 Drug: Lasix (furosemide) 20 mg Route: IVP; Site: right antecubital; jean 09:27 Follow up: Response: No adverse reaction jean Outcome: 09:18 Discharge ordered by . rn 09:59 Discharged to home jean 09:59 Condition: good 09:59 Discharge instructions given to patient, family, Prescriptions given X 1. 10:00 Patient left the ED. jean Signatures: Dispatcher [employer] EDMS Donny Stein MD MD rn Smirch, Shelby, RN RN Kiki Kellogg Jennifer, RN RN jg9 Clarissa Morley RN RN jean
--- NOTE | 2021-10-28 09:18 | EDPHYS ---
Physician Documentation [facility] Name: Juan Nelson Age: 76 yrs Sex: Male : 1945 Arrival Date: 10/28/2021 Time: 07:16 Bed 6 Private MD: Raymundo Marie ED Physician Donny Stein HPI: 10/28 08:05 This 76 yrs old Male presents to ER via Ambulatory with complaints of rn Abdominal Pain, Abdominal Distention. 08:05 The patient presents with abdominal pain abdominal distention that is diffuse. Onset: rn The symptoms/episode began/occurred 1 week(s) ago. The symptoms do not radiate. Associated signs and symptoms: Pertinent positives: shortness of breath, Pertinent negatives: anorexia, blood in stools, chest pain, constipation, diarrhea, fever. The symptoms are described as achy. Modifying factors: The symptoms are alleviated by nothing, the symptoms are aggravated by nothing. Severity of pain: At its worst the pain was mild in the emergency department the pain is unchanged. The patient has experienced similar episodes in the past. The patient has been recently seen by a physician:. Reports abd swelling and pain for about 1 week, no fever, no vomiting, reports has hx of liver problems with ascites, has never been drained, had u/s on Saturday but no results given to him. Reports urinated and had bowel movement this AM. NO hx of obstruction. . Historical: - Allergies: 07:36 No Known Allergies; ss - Home Meds: 07:36 carvedilol 25 mg Oral tab 1 tab 2 times per day [Active]; metformin 1,000 mg Oral tab 1 ss tab 2 times per day [Active]; spironolactone 25 mg Oral tab 1 tab once daily [Active]; Jardiance 10 mg Oral tab 1 tab once daily [Active]; glipizide 10 mg Oral tab 1 tab 2 times per day [Active]; levothyroxine 112 mcg tab 1 tab once daily [Active]; omeprazole 20 mg Oral cpDR 1 cap once daily [Active]; paroxetine HCl 20 mg Oral tab 1 tab once daily [Active]; Xarelto 20 mg Oral tab 1 tab once daily [Active]; Bactrim [Active]; [place] [Active]; - PMHx: 07:36 COPD; Diabetes - NIDDM; Hypothyroidism; ss - Immunization history:: Client reports receiving the 2nd dose of the Covid vaccine. - Social history:: Smoking status: Patient reports the use of cigarette tobacco products, smokes one-half pack cigarettes per day. - Family history:: not pertinent. - Hospitalizations: : No recent hospitalization is reported. ROS: 08:05 Constitutional: Negative for fever, chills, and weight loss, Eyes: Negative for injury, rn pain, redness, and discharge, ENT: Negative for injury, pain, and discharge, Cardiovascular: Negative for chest pain, palpitations, and edema, Respiratory: Negative for shortness of breath, cough, wheezing, and pleuritic chest pain, Abdomen/GI: + abd pain and abd distension Back: Negative for injury and pain, MS/Extremity: Negative for injury and deformity, Skin: Negative for injury, rash, and discoloration, Neuro: Negative for headache, weakness, numbness, tingling, and seizure. Exam: 08:05 Constitutional: This is a well developed, well nourished patient who is awake, alert, rn and in no acute distress. Head/Face: Normocephalic, atraumatic. Eyes: Periorbital areas with no swelling, redness, or edema. Cardiovascular: Regular rate and rhythm. No pulse deficits. Respiratory: Mild tachypnea that worsens with laying down. Abdomen/GI: firm, + distended, tender in all 4 quadrants. Skin: Warm, dry MS/ Extremity: Pulses equal, no cyanosis. Neuro: Awake and alert, GCS 15 Vital Signs: 07:19 BP 157 / 85; Pulse 75; Resp 20; Temp 98.4(O); Pulse Ox 97% on R/A; Weight 92.99 kg; ss Pain 0/10; 07:45 BP 120 / 90; Pulse 48; Resp 17 S; Pulse Ox 98% on R/A; jg9 08:15 BP 118 / 85; Pulse 70; Resp 17 S; Pulse Ox 97% on R/A; jg9 MDM: 07:21 Patient medically screened. rn 09:12 Differential diagnosis: bowel obstruction, non-specific abd pain, ascites, rn constipation, obstruction, CHF. Data reviewed: vital signs, nurses notes, lab test result(s), EKG, radiologic studies, CT scan, plain films, and as a result, I will discharge patient. Data interpreted: Pulse oximetry: on room air is 97 %. Interpretation: normal. Counseling: I had a detailed discussion with the patient and/or guardian regarding: the historical points, exam findings, and any diagnostic results supporting the discharge/admit diagnosis, lab results, radiology results, the need for outpatient follow up, to return to the emergency department if symptoms worsen or persist or if there are any questions or concerns that arise at home. Response to treatment: the patient's symptoms have mildly improved after treatment, and as a result, I will discharge patient. Special discussion: I discussed with the patient/guardian in detail that at this point there is no indication for admission to the hospital. It is understood, however, that if the symptoms persist or worsen the patient needs to return immediately for re-evaluation. Based on the history and exam findings, there is no indication for further emergent testing or inpatient evaluation. I discussed with the patient/guardian the need to see the corduroy brusher operator for further evaluation of the symptoms. I discussed with the patient/guardian the need to see the primary care provider for further evaluation of the symptoms. ED course: CT no acute findings, trace ascites but not enough to drain, + right sided pleural effusion and cardiomegaly that has been stable since 2019, no oxygen requirement, given lasix here with good output, recommend doubling his lasix for 3 days and pcp and cardiology f/u.. 10/28 07:26 Order name: CBC with Diff; Complete Time: 08:10/28 07:26 Order name: CMP; Complete Time: 08:10/28 07:26 Order name: Lipase; Complete Time: :10/28 07:26 Order name: CT Abd/Pelvis - IV Contrast Only; Complete Time: 09: rn 10/28 07:26 Order name: PT-INR; Complete Time: :10/28 07:35 Order name: BNP; Complete Time: :10/28 07:26 Order name: IV Saline Lock; Complete Time: :10/28 07:26 Order name: Labs collected and sent; Complete Time: 07:10/28 07:35 Order name: Cardiac monitoring; Complete Time: :45 10/28 07:35 Order name: O2 Sat Monitoring; Complete Time: 07:45 10/28 08:27 Order name: XRAY Chest (1 view); Complete Time: 09:04 rn Administered Medications: 08:52 Drug: Lasix (furosemide) 20 mg Route: IVP; Infused Over: 2 mins; Site: right jg9 antecubital; 09:26 Follow up: Response: No adverse reaction jean 09:26 Drug: Lasix (furosemide) 20 mg Route: IVP; Site: right antecubital; jean 09:27 Follow up: Response: No adverse reaction jean Disposition Summary: 10/28/21 09:18 Discharge Ordered Location: Home rn Problem: an ongoing problem rn Symptoms: have improved rn Condition: Stable rn Diagnosis - Chronic combined systolic (congestive) and diastolic (congestive) heart failure rn - Other ascites rn - Pleural effusion, not elsewhere classified rn Followup: rn - With: Robert Mercado MD - When: 2 - 3 days - Reason: Recheck today's complaints, Re-evaluation by your physician Discharge Instructions: - Discharge Summary Sheet rn - Ascites rn - Pleural Effusion rn - Heart Failure, Diagnosis, [id number] rn Forms: - Medication Reconciliation Form rn - Thank You Letter rn - Antibiotic spring intern - Prescription Opioid Use rn Prescriptions: - Lasix 40 mg Oral Tablet - take 1 tablet by ORAL route once daily for 5 days; 5 tablet; Refills: 0, rn Product Selection Permitted Signatures: Dispatcher [employer] Donny Rubin MD MD rn Smirch, Shelby, RN RN ss Gilmore, Jennifer, RN RN jg9 Clarissa Morley RN RN jean
[2021-10-28 10:16] VITALS: TEMP 98.4
[2021-10-28 10:18] VITALS: BP 118/85; O2SAT 97
== END 2021-10-28 10:00 | disposition home or self-care (01) ==
LOC: ER 07:13
DX: R18.8 Other ascites (principal); I50.42 Chronic combined systolic (congestive) and diastolic (congestive) heart failure; J90 Pleural effusion, not elsewhere classified; J44.9 Chronic obstructive pulmonary disease, unspecified; E11.9 Type 2 diabetes mellitus without complications; E03.9 Hypothyroidism, unspecified; F17.210 Nicotine dependence, cigarettes, uncomplicated; Z79.01 Long term (current) use of anticoagulants
CPT/HCPCS: 85025; 36415; 85610; 83690; 80053; 83880; 74177; 71045; 96374; 99284; Q9967; J1940 ×2

== ENCOUNTER 2021-11-16 10:43 | Inpatient (IN) | payer OTHER ==
--- OUTSIDE RECORDS SUMMARY | 2021-11-16 10:45 | XMS REPORT | Continuity of Care Document ---
:1945 Author Organization [facility] t Address [address] [place] [address] Care Team Providers Name Role Phone Becca Salinas DO Primary Care Physician BECCA SALINAS Attending Clinician Unavailable Becca Salinas DO Attending Clinician [id number] Attending Clinician Unavailable Payers Payer Name Policy Type Policy Number Effective Date Expiration Date Nataly morejon [facility] TXP 7 [id number] 2021 CLASSIC NO PREMIUM 00:00:00 R2T Problems Condition Condition Condition Status Onset Resolution Last Treating Co mments Source Name Details Category Date Date Treatment Clinician Date 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 4-21 Se ybold anemia anemia 00:00: secondary secondary 00 to to inadequate inadequate dietary dietary iron iron intake intake Acute Acute Disease Active Anai hematogeno hematogeno 4-21 Se ybold us us 00:00: 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 right foot Seasonal Seasonal Disease Active Kelse y allergic allergic 4-21 Seybol d rhinitis rhinitis 00:00: due to due to 00 pollen pollen Chronic Chronic Disease Active Anai pleural pleural 4-05 Seybold effusion effusion 00:00: 00 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:00: heart heart 00 failure failure Pulmonary Pulmonary Disease Active Rakan sey hypertensi hypertensi 4-05 Se ybold on on 00:00: 00 Fatty Fatty Disease Active Anai liver liver 4-05 Seybold 00:00: 00 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-05 Seybol d mellitus mellitus 00:00: with foot with foot 00 ulcer, ulcer, without without long-term long-term current current use of use of insulin insulin 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 00:00: failure, failure, 00 unspecifie unspecifie d heart d heart failure failure type type Hypercoagu Hypercoagu Disease Active Gaby kimbrough lable lable 3-01 Seybold state due state due 00:00: 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 00 fibrillati fibrillati on on Chronic Chronic Disease Active Anai obstructiv obstructiv 2-18 Se ybold e e 00:00: pulmonary pulmonary 00 disease disease Obesity Obesity Disease Active Anai (BMI (BMI 2-18 Seybold 30.0-34.9) 30.0-34.9) 00:00: 00 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 Social History Social Habit Start Date Stop Date Quantity Comments Source History of tobacco Cigarette Smoker Anai Nieto use Alcohol intake 2021-11-16 2021-11-16 Ex-drinker Anai tran 00:00:00 00:00:00 (finding) Education 2021-09-15 2021-09-15 5 Anai Nieto 00:00:00 00:00:00 Cigarettes smoked 2021-09-15 2021-09-15 Anai Nieto current (pack per 00:00:00 00:00:00 day) - Reported Cigarette 2021-09-15 2021-09-15 Anai Nieto pack-years 00:00:00 00:00:00 Tobacco use and 2021-09-15 2021-09-15 Smokeless tobacco Ke stephany Nieto exposure 00:00:00 00:00:00 non-user Sex [birth year] Anai puente 00:00:00 00:00:00 Smoking Status Start Date Stop Date Source Smokes tobacco daily 2021-09-15 00:00:00 Anai Roemobartolome Medications Ordered Filled Start Stop Current Ordering Indication Dosage Frequency Signature Comments Components Source Medication Medication Date Date Medication? Clinician (SIG) Name Name Bao Yes [id number] Inhale 1 Anai m [place] 4-21 inhalation Seyb old (Incruse 08:13: into the Ellipta) 06 lungs 62.5 daily MCG/INH inhalation AEROSOL POWDER, BREATH ACTIVATED Lidocaine 5 Yes Apply 1 Rakan sey % apply 4-21 applicatio Seybol d externally 08:13: n Ointment 06 topically as needed Empaglifloz Yes [id number] 1{tbl} Take 1 Anai in 4-21 tablet by Emilia (Jardiance) 00:00: mouth 25 MG oral 00 daily Tablet Cetirizine Yes [id number] 5mg Take 1 K elsey HCl 5 MG 4-21 tablet (5 Seybol d oral Tablet 00:00: mg total) 00 by mouth daily Cephalexin Yes TAKE 1 Kelse y 500 MG oral 4-18 CAPSULE BY Se puente Capsule 00:00: MOUTH 00 TWICE DAILY FOR 10 DAYS- TAKE ALL Acetaminoph Yes 1{tbl} Q.25D Take 1 K elsey en-Codeine 4-11 tablet by yb old #3 300-30 00:00: mouth MG oral 00 every 6 Tablet hours as needed FOR PAIN Umeclidiniu Yes [id number] Inhale 1 Anai m [place] 4-05 inhalation Seyb old (Incruse 09:30: into the Ellipta) 53 lungs 62.5 daily MCG/INH inhalation AEROSOL POWDER, BREATH ACTIVATED Spironolact Yes [id number] 25mg Take 1 Anai one 25 MG 4-05 tablet (25 Seyb old oral Tablet 00:00: mg total) 00 by mouth daily Furosemide Yes 40mg Take 1 Kelse y (Lasix) 40 4-05 tablet (40 Sey bold MG oral 00:00: mg total) Tablet 00 by mouth daily Spironolact 2021-0 Yes [id number] 25mg Take 1 Anai one 25 MG 4-05 tablet (25 Seyb old oral Tablet 00:00: mg total) 00 by mouth daily Furosemide Yes [id number] 40mg Take 1 K elsey (Lasix) 40 4-05 tablet (40 Sey bold MG oral 00:00: mg total) Tablet 00 by mouth daily Clotrimazol Yes APPLY Kelse y e 1 % apply 3-29 TOPICALLY Sey bold externally 00:00: TO Cream 00 AFFECTED AREA EVERY 12 HOURS Clotrimazol Yes APPLY Kelse y e 1 % apply 3-29 TOPICALLY Sey bold externally 00:00: TO Cream 00 AFFECTED AREA EVERY 12 HOURS Spironolact 0 202- No [id number] 12.5mg Take 0.5 Anai one 25 MG 2-28 04-05 tablets Seybol d oral Tablet 00:00: 00:00 (12.5 mg 00 :00 total) by mouth daily Carvedilol 2021-0 2021- No 25mg Take 25 mg Anai 25 MG oral 2-18 02-18 by mouth 2 Se ybold Tablet 14:30: 00:00 times 25 :00 daily (with meals) Umeclidiniu Yes Inhale 1 Ke lsey m [place]ila[place] 2-18 inhalation Seyb old (Incruse 14:18: into the Ellipta) 48 lungs 62.5 daily MCG/INH inhalation AEROSOL POWDER, BREATH ACTIVATED Carvedilol 0 Yes [id number] 25mg Take 1 K elsey 25 MG oral 2-18 tablet (25 Sey bold Tablet 00:00: mg total) 00 by mouth 2 times daily (with meals) Carvedilol 2021-0 Yes [id number] 25mg Take 1 K elsey 25 MG oral 2-18 tablet (25 Sey bold Tablet 00:00: mg total) 00 by mouth 2 times daily (with meals) Empaglifloz 2021-0 Yes [id number] 1{tbl} Take 1 Anai in 2-18 tablet by Seybold (Jardiance) 00:00: mouth 10 MG oral 00 daily Tablet Carvedilol 2021-0 Yes [id number] 25mg Take 1 K elsey 25 MG oral 2-18 tablet (25 Sey bold Tablet 00:00: mg total) 00 by mouth 2 times daily (with meals) Empaglifloz 2021-0 Yes [id number] 1{tbl} Take 1 Anai in 2-18 tablet by Seybold (Jardiance) 00:00: mouth 10 MG oral 00 daily Tablet Empaglifloz 2021-0 2021- No [id number] 1{tbl} Take 1 Anai in 2-18 04-21 tablet by Seybold (Jardiance) 00:00: 00:00 mouth 10 MG oral 00 :00 daily Tablet Levothyroxi 2021-0 Yes [id number] 112ug Take 112 Anai ne Sodium 2-15 mcg by Seybold 112 MCG 00:00: mouth oral Tablet 00 every morning ON AN EMPTY STOMACH Metformin 2021-0 Yes [id number] 1000mg Take 1,000 Anai HCl 1000 MG 2-15 mg by Seybold oral Tablet 00:00: mouth 2 00 times daily (with meals) Levothyroxi 2021-0 Yes 112ug Take 112 K elsey ne Sodium 2-15 mcg by Seybold 112 MCG 00:00: mouth oral Tablet 00 every morning ON AN EMPTY STOMACH Metformin 2021-0 Yes 1000mg Take 1,000 Anai HCl 1000 MG 2-15 mg by Seybold oral Tablet 00:00: mouth 2 00 times daily (with meals) Levothyroxi 2021-0 Yes [id number] 112ug Take 112 Anai ne Sodium 2-15 mcg by Seybold 112 MCG 00:00: mouth oral Tablet 00 every morning ON AN EMPTY STOMACH Metformin 2021-0 Yes [id number] 1000mg Take 1,000 Anai HCl 1000 MG 2-15 mg by Seybold oral Tablet 00:00: mouth 2 00 times daily (with meals) Xarelto 20 2021-0 Yes [id number] TAKE 1 K elsey MG oral 1-21 TABLET BY Seybold Tablet 00:00: MOUTH 00 EVERY DAY WITH EVENING MEAL Xarelto 20 2021-0 Yes TAKE 1 Kelse y MG oral 1-21 TABLET BY Seybold Tablet 00:00: MOUTH 00 EVERY DAY WITH EVENING MEAL Xarelto 20 2021-0 Yes [id number] TAKE 1 K elsey MG oral 1-21 TABLET BY Seybold Tablet 00:00: MOUTH 00 EVERY DAY WITH EVENING MEAL glipiZIDE 2021-0 Yes [id number] 10mg Take 10 mg Anai 10 MG oral 1-19 by mouth 2 Sey bold Tablet 00:00: times 00 daily glipiZIDE 2021-0 Yes 10mg Take 10 mg Ke lsey 10 MG oral 1-19 by mouth 2 Sey bold Tablet 00:00: times 00 daily glipiZIDE 2021-0 Yes [id number] 10mg Take 10 mg Anai 10 MG oral 1-19 by mouth 2 Sey bold Tablet 00:00: times 00 daily Spironolact 2021-0 Yes 25mg Take 25 mg Anai one 25 MG 1-08 by mouth Seybol d oral Tablet 00:00: daily 00 Paroxetine 2021-0 Yes [id number] 20mg Take 20 mg Anai HCl 20 MG 1-05 by mouth Seybol d oral Tablet 00:00: every 00 morning Paroxetine 2021-0 Yes 20mg Take 20 mg K elsey HCl 20 MG 1-05 by mouth Seybol d oral Tablet 00:00: every 00 morning Paroxetine 2021-0 Yes [id number] 20mg Take 20 mg Anai HCl 20 MG 1-05 by mouth Seybol d oral Tablet 00:00: every 00 morning Jardiance 2020-2- No 1{tbl} Take 1 Rakan sey 10 MG oral 2-29 02-18 tablet by Sey bold Tablet 00:00: 00:00 mouth 00 :00 daily Omeprazole 2020-1 Yes [id number] 20mg Take 20 mg Anai 20 MG oral 2-24 by mouth Seybo ld Delayed 00:00: daily Release 00 Capsule Omeprazole 2020-1 Yes 20mg Take 20 mg K elsey 20 MG oral 2-24 by mouth Seybo ld Delayed 00:00: daily Release 00 Capsule Omeprazole 2020-1 Yes [id number] 20mg Take 20 mg Anai 20 MG oral 2-24 by mouth Seybo ld Delayed 00:00: daily Release 00 Capsule Immunizations Ordered Immunization Filled Immunization Date Status Commen ts Source Name Name Influenza Virus 2021-02-26 Completed Anai Se ybold Vaccine, High Dose, 00:00:00 Age 65 And Up Shingles IM 2021-02-26 Completed Anai Seybol d (Shingrix) 00:00:00 Influenza Virus 2021-02-26 Completed Anai Se ybold Vaccine, High Dose, 00:00:00 Age 65 And Up Shingles IM 2021-02-26 Completed Anai Seybol d (Shingrix) 00:00:00 Influenza Virus 2021-02-26 Completed Anai Crowder ybold Vaccine, High Dose, 00:00:00 Age 65 And Up Shingles IM 2021-02-26 Completed Anai Seybol d (Shingrix) 00:00:00 Vital Signs Vital Name Observation Time Observation Value Comments Source Systolic blood pressure 2021-11-16 13:06:00 128 mm[Hg] Anai Seybold Diastolic blood 2021-11-16 13:06:00 70 mm[Hg] Kelse y Seybold pressure Heart rate 2021-11-16 13:06:00 63 /min Anai farleybold Body temperature 2021-11-16 13:06:00 36 Tiki Samia ey Seybold Respiratory rate 2021-11-16 13:06:00 15 /min Samia ey Seybold Body height 2021-11-16 13:06:00 167.6 cm Anai S eybold Body weight 2021-11-16 13:06:00 89.812 kg Anai S eybold BMI 2021-11-16 13:06:00 31.96 kg/m2 Anai S eybold Body weight 2021-10-31 14:25:00 92.08 kg Anai S eybold BMI 2021-10-31 14:25:00 32.77 kg/m2 Anai S eybold Systolic blood pressure 2021-10-31 14:25:00 118 mm[Hg] Anai Seybold Diastolic blood 2021-10-31 14:25:00 60 mm[Hg] Kelse y Seybold pressure Heart rate 2021-10-31 14:25:00 64 /min Anai S eybold Body temperature 2021-10-31 14:25:00 35.67 Tiki Samia ey Seybold Respiratory rate 2021-10-31 14:25:00 16 /min Samia ey Seybold Body height 2021-10-31 14:25:00 167.6 cm Anai S eybold Systolic blood pressure 2021-09-15 19:47:00 103 mm[Hg] Anai Seybold Diastolic blood 2021-09-15 19:47:00 67 mm[Hg] Kelse y Seybold pressure Heart rate 2021-09-15 19:47:00 88 /min Anai S eybold Body temperature 2021-09-15 19:47:00 36.44 Tiki Samia ey Seybold Respiratory rate 2021-09-15 19:47:00 15 /min Samia ey Seybold Body height 2021-09-15 19:47:00 167.6 cm Anai Ingram eybold Body weight 2021-09-15 19:47:00 91.627 kg Anai farleybold BMI 2021-09-15 19:47:00 32.60 kg/m2 Anai farleybold Procedures This patient has no known procedures. Plan of Care Planned Activity Planned Date Details Comments Source Encounters Start End Encounter Admission Attending Care Care Encounter Source Date/Time Date/Time Type Type Clinicians Facility Department ID 2021-12-15 2021-12-15 Outpatient ANAI SALINAS [id number] Anai 08:30:00 08:30:00 BECCA hitchcock 2021-12-08 2021-12-08 Outpatient ANAI SALINAS [id number] Anai 08:00:00 08:00:00 BECCA Seybol d 2021-11-16 2021-11-16 Office Jorge Salinas [id number] Anai 08:00:00 08:15:00 Visit Becca Boyd [id number] ybbartolome [id number] 2021-11-15 2021-11-15 Outpatient ANAI SALINAS [id number] Anai 00:00:00 00:00:00 BECCA Seybol d 2021-10-31 2021-10-31 Outpatient LAB90 ANAI MORGAN [id number] Anai 10:15:00 10:15:00 Seybol d 2021-10-31 2021-10-31 Office Jorge Salinas [id number] Anai 09:45:00 10:00:00 Visit Becca Boyd [id number] Se ybold [id number] 2021-10-30 2021-10-30 Outpatient PREZAANAI Ingram [id number] Anai 00:00:00 00:00:00 BECCA Seybol d 2021-09-25 2021-09-25 Outpatient ANAI SALINAS [id number] Anai 00:00:00 00:00:00 BECCA Seybol d 2021-09-22 2021-09-22 Outpatient LAB90 ANAI MORGAN [id number] Anai 08:10:00 08:10:00 Seybol d 2021-09-20 2021-09-20 Outpatient PREZAANAI Ingram [id number] Anai 00:00:00 00:00:00 BECCA Seybol d 2021-09-18 2021-09-18 Outpatient PREZAANAI Ingram [id number] Anai 00:00:00 00:00:00 BECCA Seybol d 2021-09-18 2021-09-18 Outpatient PREZAANAI Ingram [id number] Anai 00:00:00 00:00:00 BECCA Seybol d 2021-09-15 2021-09-15 Office Jorge Salinas [id number] Anai 14:45:00 15:30:00 Visit Becca Boyd [id number] Se ybold [id number] Results This patient has no known results.
[2021-11-16] MEDS ORDERED: HYDROCODONE/APAP 7.5/325 MG TAB PO ONE (16:06)
[2021-11-16] MEDS ORDERED: ACETAMINOPHEN 500 MG TAB PO PRN (16:40)
[2021-11-16] MEDS ORDERED: HYDROCODONE/APAP 5/325 MG TAB PO PRN (16:40)
[2021-11-16] MEDS ORDERED: ONDANSETRON 4 MG/2 ML VIAL IV PRN (16:40)
[2021-11-16] MEDS ORDERED: VANCOMYCIN 1 GM in NA CHLORIDE 0.9% 250 ML IVPB SCH (16:40)
[2021-11-16] MEDS: INSULIN -REGULAR HUMAN 50 UNIT/0.5 ML ML SQ SCH ×2 (16:40→21:00)
--- NOTE | 2021-11-16 16:58 | ER ---
Nurse's Notes [facility] Name: Juan Nelson Age: 76 yrs Sex: Male : 1945 Arrival Date: 11/16/2021 Time: 10:45 Bed Direct Admit Private MD: Raymundo Marie Diagnosis: Foot Laceration/ Open wound of foot Presentation: 11/16 11:02 Chief complaint: Patient's son or daughter states: "He has been having foot pain and we ab2 went to the doctor this morning and they want him to have an MRI and IV antibiotics.". Coronavirus screen: Vaccine status: Patient reports receiving the 2nd dose of the covid vaccine. Client denies travel out of the [place] in the last 14 days. At this time, the client does not indicate any symptoms associated with coronavirus-19. Ebola Screen: Patient negative for fever greater than or equal to 101.5 degrees Fahrenheit, and additional compatible Ebola Virus Disease symptoms Patient denies exposure to infectious person. Patient denies travel to an Ebola-affected area in the 21 days before illness onset. No symptoms or risks identified at this time. Initial Sepsis Screen: Does the patient meet any 2 criteria? No. Patient's initial sepsis screen is negative. Does the patient have a suspected source of infection? Yes: Bone or joint infection. Risk Assessment: Do you want to hurt yourself or someone else? Patient reports no desire to harm self or others. Onset of symptoms is unknown. 11:02 Method Of Arrival: Ambulatory ab2 11:02 Acuity: KRISTEL 3 ab2 Triage Assessment: 11:04 General: Appears in no apparent distress. uncomfortable, Behavior is calm, cooperative, ab2 appropriate for age. Pain: Complains of pain in right foot. Neuro: Level of Consciousness is awake, alert, obeys commands, Oriented to person, place, time, situation, Appropriate for age. Respiratory: Airway is patent Respiratory effort is even, unlabored, Respiratory pattern is regular, symmetrical. GI: No deficits noted. No signs and/or symptoms were reported involving the gastrointestinal system. Derm: Reports pain. Historical: - Allergies: 11:04 No Known Allergies; ab2 - PMHx: 11:04 COPD; Diabetes - NIDDM; Hypothyroidism; ab2 - Immunization history:: Adult Immunizations up to date. - Social history:: Smoking status: Patient reports the use of cigarette tobacco products, smokes one-half pack cigarettes per day. Vital Signs: 11:02 BP 131 / 76; Pulse 77; Resp 17; Temp 97.6; Pulse Ox 96% ; Weight 89.81 kg; Height 5 ft. ab2 6 in. (167.64 cm); Pain 10/10; 11:02 Body Mass Index 31.96 (89.81 kg, 167.64 cm) ab2 ED Course: 10:45 Patient arrived in ED. am2 10:46 Raymundo Marie DO is Private Physician. am2 11:04 Triage completed. ab2 11:05 Arm band placed on left wrist. ab2 12:01 Bed in low position. Call light in reach. Side rails up X2. tp1 16:56 Familia Harrington MD is Hospitalizing Provider. jd3 Administered Medications: No medications were administered Outcome: 16:57 Decision to Hospitalize by Provider. jd3 16:57 Patient left the ED. jd3 Signatures: Kiki Kellogg am2 Hero Ruano RN RN Aide Caldera tp1 Abraham Zacarias ab2
[2021-11-16 17:35] VITALS: BMI 33.0
[2021-11-16] MEDS: carvediloL 25 MG TAB PO SCH (17:50)
[2021-11-16] MEDS ORDERED: VANCOMYCIN 1.75 GM in NA CHLORIDE 0.9% 500 ML IVPB ONE (18:00)
[2021-11-16 18:08] LABS: Absolute Lymphocytes (CBC) 3.6 K/uL (0.7-4.9); Hematocrit 37.8 % (39.6-49.0); Lymphocytes % 40.6 % (15.3-44.8); MPV 7.6 fL (7.6-11.3); RBC Red Blood Cell Count 5.09 M/uL (4.33-5.43)
[2021-11-16 18:25] LABS: ALT/SGPT 20 U/L (12-78); AST/SGOT 18 U/L (15-37); Albumin 3.3 g/dL (3.4-5.0); Alkaline Phosphatase 50 U/L (45-117); BUN Blood Urea Nitrogen 16 mg/dL (7-18); Bicarbonate 29 mmol/L (21-32); Bilirubin Total 0.3 mg/dL (0.2-1.0); Glucose Level 133 mg/dL (74-106); Potassium 4.4 mmol/L (3.5-5.1); Protein, Total 7.5 g/dL (6.4-8.2); Sodium Level 139 mmol/L (136-145)
--- NOTE | 2021-11-16 19:35 | P.HP ---
Certification for Inpatient Patient admitted to: Inpatient With expected LOS: >2 Midnights Patient will require the following post-hospital care: None Practitioner: I am a practitioner with admitting privileges, knowledge of patient current condition, hospital course, and medical plan of care. Services: Services provided to patient in accordance with Admission requirements found in Title 42 Section 412.3 of the Code of Federal Regulations Patient History Date of Service: 11/16/21 Reason for admission: Right foot osteomyelitis versus gouty arthropathy History of Present Illness: Patient is a 76-year-old gentleman who is been following up with a warehouse freight handler as an outpatient for cellulitis/erythema of the right foot. They have been working him up for an infection and they have also been concern for gout. Patient's work-up and treatment plan has not been able to cure his erythema. Patient still having a lot of pain in that right toe. Patient decided to come to the primary care provider who referred him to the hospital for work-up for osteomyelitis. At this time, patient will be admitted for IV antibiotic therapy and pain control. Allergies No Known Drug Allergies Allergy (Verified 09/07/18 20:11) Unknown Home Medications: Acetaminophen with Codeine [Acetaminophen-Cod #3 Tablet] 1 tab PO Q6H PRN 11/16/21 Carvedilol [Coreg] 1 tab PO BIDWM 11/16/21 Cetirizine HCl [Zyrtec*] 1 tab PO DAILY 11/16/21 Clotrimazole [Antifungal] 1 appl TOP Q12H 11/16/21 Empagliflozin [Jardiance] 1 tab PO DAILY 11/16/21 Furosemide 1 tab PO DAILY 11/16/21 Glipizide [Glipizide ER] 1 tab PO BID 11/16/21 Levothyroxine Sodium 1 tab PO [id number] 11/16/21 Lidocaine 5% [Lidocaine HCl] 1 appl TOP DIRECTED PRN 11/16/21 Metformin HCl 1 tab PO BID 11/16/21 Omeprazole 1 tab PO DAILY 11/16/21 Paroxetine HCl [Paxil] 1 tab PO DAILY 11/16/21 Rivaroxaban [Xarelto] 1 tab PO DAILY AT SUPPER 11/16/21 Spironolactone 1 tab PO DAILY 11/16/21 Umeclidinium [place] [Incruse Ellipta] 1 puff IN DAILY 11/16/21 - Past Medical/Surgical History Has patient received pneumonia vaccine in the past: Yes Diabetic: Yes -: Hypothyroidism -: DM-NIDDM -: AFIB -: HTN -: COPD -: ascites -: Cholecystectomy -: Rt elbow sx - Family History Sister Medical History: Hypertension, Diabetes - Social History Smoking Status: Current every day smoker Alcohol use: No CD- Drugs: No Caffeine use: Yes Place of Residence: Home Review of Systems 10-point ROS is otherwise unremarkable Physical Examination - Vital Signs Temperature: 97.0 F Blood Pressure: 127/64 Pulse: 61 Respirations: 18 Pulse Ox (%): 98 - Physical Exam General: Alert, In no apparent distress, Oriented x3 HEENT: Atraumatic, PERRLA, Mucous membr. moist/pink, EOMI, Sclerae nonicteric Neck: Supple, 2+ carotid pulse no bruit, No LAD, Without JVD or thyroid abnormality Respiratory: Clear to auscultation bilaterally, Normal air movement Cardiovascular: Regular rate/rhythm, Normal S1 S2 Gastrointestinal: Normal bowel sounds, Soft and benign, Non-distended, No tenderness Musculoskeletal: Erythema, Tenderness Integumentary: No rashes, No breakdown Neurological: Normal gait, Normal speech, Normal strength at 5/5 x4 extr, Normal tone, Normal affect Lymphatics: No axilla or inguinal lymphadenopathy Assessment & Plan - Problems (Diagnosis) (1) Toe osteomyelitis, right Current Visit: Yes Status: Acute (2) Gouty arthropathy Current Visit: Yes Status: Acute (3) History of diabetes mellitus Current Visit: Yes Status: Acute (4) History of peripheral arterial disease Current Visit: Yes Status: Acute - Plan PLAN: 1. Continue with IV antibiotic 2. Continue with local wound care 3. Wound care consultation/surgical consultation 4. Gentle IV hydration 5. Monitor CBC 6. Strict blood sugar monitoring 7. Pain control 8. GI and DVT prophylaxis Discharge Plan: Home Plan to discharge in: Greater than 2 days - Advance Directives Does patient have a Living Will: No Does patient have a Durable POA for Healthcare: No - Code Status/Comfort Care Code Status Assessed: Yes Code Status: Full Code Critical Care: No Time Spent Managing PTS Care (In Minutes): 45
--- NOTE | 2021-11-16 20:42 | RAD REPORT ---
EXAM DESCRIPTION: MRIFoot Right Wo Cont11/16/2021 8:29 pm CLINICAL HISTORY: Right foot pain/swelling COMPARISON: none TECHNIQUE: Axial, sagittal and coronal magnetic resonance imaging of the right foot was obtained. FINDINGS: Increased signal is present within the lateral apophysis of the first metatarsal head. No additional significant abnormal signal is visualized within the bones. No fracture or dislocation No soft tissue abscess. IMPRESSION: Increased signal is present within the lateral apophysis of the first metatarsal head. T his probably indicates an apophysitis. There is no significant surrounding edema within the soft tiss ue to suggest that this could represent osteomyelitis. No evidence of osteomyelitis involving the foot
[2021-11-16] MEDS: CEFEPIME 1 GM in NA CHLORIDE 0.9% 100 ML IV SCH (20:52)
[2021-11-17 05:17] LABS: Urine Appearance Clear (Clear); Urine Bilirubin Negative (Negative); Urine Blood Negative (Negative); Urine Color Yellow (Yellow); Urine Glucose 2+ (Negative); Urine Protein Negative (Negative); Urine Specific Gravity >=1.030 (1.005-1.030); Urine Urobilinogen 0.2 mg/dL (0.2-1.0); Urine pH 5.5 (5.0-7.0)
[2021-11-17 05:18] LABS: Urine Microscopic Reflex NO UMIC
[2021-11-17] MEDS: carvediloL 25 MG TAB PO SCH ×2 (05:45→18:50)
[2021-11-17] MEDS: PANTOPRAZOLE 40MG TABLET PO SCH (05:45)
[2021-11-17] MEDS: LEVOTHYROXINE SOD 0.112 MG TAB PO SCH (05:45)
[2021-11-17] MEDS: INSULIN -REGULAR HUMAN 50 UNIT/0.5 ML ML SQ SCH ×4 (07:30→20:20)
[2021-11-17] MEDS: CEFEPIME 1 GM in NA CHLORIDE 0.9% 100 ML IV SCH ×2 (09:00→20:20)
[2021-11-17] MEDS: FUROSEMIDE 40 MG TABLET PO SCH (09:00)
[2021-11-17] MEDS: SPIRONOLACTONE 25 MG TABLET PO SCH (09:00)
[2021-11-17] MEDS: VANCOMYCIN 1.75 GM in NA CHLORIDE 0.9% 500 ML IVPB SCH (12:41)
[2021-11-17 17:03] LABS: Hematocrit 37.6 % (39.6-49.0); Lymphocytes % 31.7 % (15.3-44.8); MPV 7.3 fL (7.6-11.3); RBC Red Blood Cell Count 5.17 M/uL (4.33-5.43)
[2021-11-17 17:23] LABS: ALT/SGPT 20 U/L (12-78); AST/SGOT 20 U/L (15-37); Albumin 3.3 g/dL (3.4-5.0); Alkaline Phosphatase 50 U/L (45-117); BUN Blood Urea Nitrogen 15 mg/dL (7-18); Bicarbonate 30 mmol/L (21-32); Bilirubin Total 0.8 mg/dL (0.2-1.0); Glucose Level 102 mg/dL (74-106); Potassium 4.5 mmol/L (3.5-5.1); Protein, Total 7.3 g/dL (6.4-8.2); Sodium Level 139 mmol/L (136-145)
[2021-11-17] MEDS: MORPHINE 2 MG/ML SYR IV PRN (20:19)
[2021-11-18] MEDS: MORPHINE 2 MG/ML SYR IV PRN (04:45)
[2021-11-18] MEDS: carvediloL 25 MG TAB PO SCH (05:09)
[2021-11-18] MEDS: PANTOPRAZOLE 40MG TABLET PO SCH (05:09)
[2021-11-18] MEDS: LEVOTHYROXINE SOD 0.112 MG TAB PO SCH (05:09)
[2021-11-18] MEDS: VANCOMYCIN 1.75 GM in NA CHLORIDE 0.9% 500 ML IVPB SCH (05:11)
[2021-11-18 07:02] LABS: UR PROTEIN 14.1 mg/dL (<11.9)
[2021-11-18] MEDS: INSULIN -REGULAR HUMAN 50 UNIT/0.5 ML ML SQ SCH ×2 (07:30→11:30)
--- NOTE | 2021-11-18 08:03 | CON ---
Date of Consultation: 11/17/2021 Reason For Service: Right foot cellulitis and diabetic ulcer on the right first toe. History Of Present Illness: This is the case of a male, who comes to us with swelling of the right f oot region and also ulcer in the medial aspect of the first toe. He has been treated outside by the primary doctor and also his manager study who noticed his condition to be worse. He was sent to the ER. Patient was admitted and a surgical consult was obtained for evaluation. He denies any trauma, any dysuria, hematuria, hematochezia, or melena. Denies any recent traveling out of the country. Denie s any family member sick at home. The patient stated that he does not remember any trauma in that re gion. He stated that his manager study just drained some pus, not too long ago. Allergies: NONE. Past Medical History: Includes COPD, diabetes, hypothyroidism, [id number] diabetes. Past Surgical History: Include cholecystectomy. Social History: He does not smoke. He does not drink alcohol. Family History: Diabetes. Physical Examination: General: The patient is awake and alert. HEENT: Pupils are equal and reactive. Anicteric. Neck: Supple. Chest: Clear. Abdomen: Soft and depressible. Extremities: Good capillary refill. Dorsalis pedis pulses still present. On the right foot, patien t has an area of cellulitis with tenderness on the first toe. There is an ulcer in the lateral aspec t of the first toe, between the wedge, between first and second metatarsal region. There is no purul ent discharge coming. There is no fluctuance present. MRI of the foot was reviewed. There is no sufficient evidence to call osteomyelitis as per Dr. Kellie cortes. Assessment And Plan: This is a male, comes to us. A 76-year-old patient comes to us with diabetic f oot ulcer and cellulitis. The patient is antibiotics at this moment. The patient is fully explained the importance of diet, importance of diabetic shoes, and the importance of wound care. We will fol low the patient while he is here. If this matured into an abscess, we will then proceed with surgica l intervention. HM/MODL Voice ID: [id number] Report ID: [id number]
[2021-11-18] MEDS ORDERED: CEFEPIME 1 GM/VIAL ONE (08:11)
[2021-11-18] MEDS ORDERED: NA CHLORIDE 0.9% 100 ML ONE (08:12)
[2021-11-18 08:58] VITALS: O2SAT 98
[2021-11-18] MEDS: CEFEPIME 1 GM in NA CHLORIDE 0.9% 100 ML IV SCH (09:00)
[2021-11-18] MEDS: SPIRONOLACTONE 25 MG TABLET PO SCH (09:10)
[2021-11-18] MEDS: FUROSEMIDE 40 MG TABLET PO SCH (09:25)
[2021-11-18] MEDS ORDERED: COLCHICINE 0.6 MG TAB PO ONE (10:19)
--- NOTE | 2021-11-18 10:26 | P.PN ---
Subjective Date of Service: 11/17/21 Subjective: No new changes, No C/O voiced, Improving MRI did not show any osteomyelitis. Patient with apophysitis. Sent a 24-hour urine for uric acid which is pending. Review of Systems 10-point ROS is otherwise unremarkable Physical Examination - Vital Signs Temperature: 96.8 F Blood Pressure: 112/61 Pulse: 54 Respirations: 20 Pulse Ox (%): 95 - Physical Exam General: Alert, In no apparent distress, Oriented x3 Respiratory: Clear to auscultation bilaterally, Normal air movement Cardiovascular: Regular rate/rhythm, Normal S1 S2, No murmurs Gastrointestinal: Normal bowel sounds, Soft and benign, Non-distended, No tenderness Musculoskeletal: No clubbing, Swelling, Tenderness Neurological: Sensation intact, Cranial nerves 3-12 intact - Studies Medications List Reviewed: Yes Assessment & Plan - Problems (Diagnosis) (1) Toe osteomyelitis, right Current Visit: Yes Status: Acute (2) Gouty arthropathy Current Visit: Yes Status: Acute (3) History of diabetes mellitus Current Visit: Yes Status: Acute (4) History of peripheral arterial disease Current Visit: Yes Status: Acute - Plan PLAN: 1. Continue with IV antibiotic 2. Continue with local wound care 3. Wound care consultation/surgical consultation 4. Gentle IV hydration 5. Monitor CBC 6. Strict blood sugar monitoring 7. Pain control 8. GI and DVT prophylaxis Discharge Plan: Home Plan to discharge in: Greater than 2 days - Advance Directives Does patient have a Living Will: No Does patient have a Durable POA for Healthcare: No - Code Status/Comfort Care Code Status: Full Code Critical Care: No Time Spent Managing PTS Care (In Minutes): 45
--- NOTE | 2021-11-18 10:39 | P.DS ---
Discharge Date: 11/18/21 Disposition: ROUTINE DISCHARGE Discharge Condition: GOOD Reason for Admission: Right foot osteomyelitis versus gouty arthropathy - Problems (1) Toe osteomyelitis, right Current Visit: Yes Status: Acute (2) Gouty arthropathy Current Visit: Yes Status: Acute (3) History of diabetes mellitus Current Visit: Yes Status: Acute (4) History of peripheral arterial disease Current Visit: Yes Status: Acute Brief History of Present Illness: Patient is a 76-year-old gentleman who is been following up with a corporate travel agent as an outpatient for cellulitis/erythema of the right foot. They have been working him up for an infection and they have also been concern for gout. Patient's work-up and treatment plan has not been able to cure his erythema. Patient still having a lot of pain in that right toe. Patient decided to come to the primary care provider who referred him to the hospital for work-up for osteomyelitis. At this time, patient will be admitted for IV antibiotic therapy and pain control. Hospital Course: Patient has done well clinically. Patient's pain is better controlled. 24-hour urine for uric acid pending. At this time, patient is stable for discharge home. Vital Signs/Physical Exam: Temp Pulse Resp BP Pulse Ox 96.8 F 54 20 112/61 95 11/18/21 10:27 11/18/21 10:27 11/18/21 10:27 11/18/21 10:27 11/18/21 10:27 General: Alert, In no apparent distress, Oriented x3 Laboratory Data at Discharge: WBC 9.6 K/uL (4.3-10.9) 11/17/21 16:47 Hgb 11.7 g/dL (13.6-17.9) L 11/17/21 16:47 Hct 37.6 % (39.6-49.0) L 11/17/21 16:47 Plt Count 258 K/uL (152-406) 11/17/21 16:47 Sodium 139 mmol/L (136-145) 11/17/21 16:47 Potassium 4.5 mmol/L (3.5-5.1) 11/17/21 16:47 BUN 15 mg/dL (7-18) 11/17/21 16:47 Creatinine 0.73 mg/dL (0.55-1.3) 11/17/21 16:47 Glucose 102 mg/dL (74-106) 11/17/21 16:47 Total Bilirubin 0.8 mg/dL (0.2-1.0) 11/17/21 16:47 AST 20 U/L (15-37) 11/17/21 16:47 ALT 20 U/L (12-78) 11/17/21 16:47 Alkaline Phosphatase 50 U/L (45-117) 11/17/21 16:47 Home Medications: Acetaminophen with Codeine [Acetaminophen-Cod #3 Tablet] 1 tab PO Q6H PRN 11/16/21 Carvedilol [Coreg] 1 tab PO BIDWM 11/16/21 Cetirizine HCl [Zyrtec*] 1 tab PO DAILY 11/16/21 Clotrimazole [Antifungal] 1 appl TOP Q12H 11/16/21 Empagliflozin [Jardiance] 1 tab PO DAILY 11/16/21 Furosemide 1 tab PO DAILY 11/16/21 Glipizide [Glipizide ER] 1 tab PO BID 11/16/21 Levothyroxine Sodium 1 tab PO RZOPP2LE 11/16/21 Lidocaine 5% [Lidocaine HCl] 1 appl TOP DIRECTED PRN 11/16/21 Metformin HCl 1 tab PO BID 11/16/21 Omeprazole 1 tab PO DAILY 11/16/21 Paroxetine HCl [Paxil] 1 tab PO DAILY 11/16/21 Rivaroxaban [Xarelto] 1 tab PO DAILY AT SUPPER 11/16/21 Spironolactone 1 tab PO DAILY 11/16/21 Umeclidinium [place] [Incruse Ellipta] 1 puff IN DAILY 11/16/21 Colchicine [Colcrys *] 0.6 mg PO BID #14 tab 11/18/21 Minocycline HCl 100 mg PO BID #14 capsule 11/18/21 levoFLOXacin [Levaquin] 500 mg PO DAILY #10 tab 11/18/21 predniSONE [Prednisone*] 20 mg PO BID #6 tab 11/18/21 New Medications: Colchicine [Colcrys *] 0.6 mg PO BID #14 tab levoFLOXacin [Levaquin] 500 mg PO DAILY #10 tab Minocycline HCl 100 mg PO BID #14 capsule predniSONE [Prednisone*] 20 mg PO BID #6 tab Physician Discharge Instructions: -DC IV and DC home -Follow-up with PCP in 1 to 2 weeks -Follow-up with [facility]ound healing center or podiatry in 1 to 2 weeks -Please call Dr. Harrington at [phone] if any questions regarding hospital stay -Please call nursing station at [phone] if any nursing or medication questions -Return to the emergency room if symptoms worsen Diet: ADA Activity: Fall precautions Followup: Raymundo Marie DO [Primary Care Provider] - Time spent managing pt's care (in minutes): 35
[2021-11-18] MEDS ORDERED: HYDROCORTISONE SUC 100 MG INJ IV ONE (11:00)
[2021-11-18 12:53] VITALS: BP 148/72; TEMP 97.2
== END 2021-11-18 14:03 | disposition home or self-care (01) | DRG 603 ==
LOC: ER 10:43 → 2ND 16:49
PROVIDERS: ADMIT Hospitalist; ATTEND Hospitalist
DX: L03.115 Cellulitis of right lower limb (principal); E03.9 Hypothyroidism, unspecified; I48.91 Unspecified atrial fibrillation; J44.9 Chronic obstructive pulmonary disease, unspecified; E11.51 Type 2 diabetes mellitus with diabetic peripheral angiopathy without gangrene; E11.621 Type 2 diabetes mellitus with foot ulcer; L97.519 Non-pressure chronic ulcer of other part of right foot with unspecified severity; M93.971 Osteochondropathy, unspecified, right ankle and foot; M10.9 Gout, unspecified; F17.210 Nicotine dependence, cigarettes, uncomplicated; Z20.822 Contact with and (suspected) exposure to COVID-19
CPT/HCPCS: 36415; 80053; 81003; 82947; 84156; 85025; 85652; 94660; 94760; 99281; J0692; J1720; J2270; J3370; J7040; U0003

== ENCOUNTER 2022-02-26 11:08 | Emergency (ER) | payer OTHER ==
[2022-02-26 11:58] LABS: Absolute Lymphocytes (CBC) 3.3 K/uL (0.7-4.9); Hematocrit 37.6 % (39.6-49.0); Lymphocytes % 38.6 % (15.3-44.8); MCV 75.4 fL (80-100); MPV 7.7 fL (7.6-11.3); RBC Red Blood Cell Count 4.98 M/uL (4.33-5.43)
--- NOTE | 2022-02-26 12:13 | RAD REPORT ---
EXAM DESCRIPTION: [place] Single View02/26/2022 12:07 pm CLINICAL HISTORY: Abdominal pain COMPARISON: October 2021 FINDINGS: The lungs appear clear of acute infiltrate. The heart is moderately to markedly enlarged IMPRESSION: No acute abnormalities displayed
[2022-02-26 12:23] LABS: Albumin 3.5 g/dL (3.4-5.0); Bilirubin Total 0.5 mg/dL (0.2-1.0); Protein, Total 7.5 g/dL (6.4-8.2)
[2022-02-26 12:35] LABS: Anisocytosis 1+; Blood Morphology Comment NOTED (NOT SEEN); Platelet Estimate ADEQ; White Blood Cell Scan OK (OK)
--- NOTE | 2022-02-26 13:21 | RAD REPORT ---
EXAM DESCRIPTION: CTAbdomen Pelvis W Contrast - 02/26/2022 1:11 pm CLINICAL HISTORY: Abdominal pain. abdominal distension COMPARISON: Abdomen Pelvis W Contrast dated 10/28/2021; Abdomen Pelvis W Contrast dated 08/02/2019; Abdomen Pelvis W Contrast dated 05/21/2017; CT ABD PELVIS W CONTRAST dated 09/03/2007; CT-ANGIO,AORTI A/RO/RENAL dated 01/19/2022 TECHNIQUE: Biphasic CT imaging of the abdomen and pelvis was performed with 100 ml non-ionic IV cont rast. All CT scans are performed using dose optimization technique as appropriate and may include automated exposure control or mA/KV adjustment according to patient size. FINDINGS: The lung bases are clear. Mild fatty liver is present. Cholecystectomy clips. Small hiatal hernia. The spleen, pancreas, adrena l glands and kidneys are within normal limits. No bowel obstruction, free air, free fluid or abscess. Prominent stool is retained in the rectosigmoi d colon. The appendix is normal. No evidence of significant lymphadenopathy. Prostate gland projects into the urinary bladder base. No suspicious bony findings. IMPRESSION: No acute intra-abdominal or pelvic finding. Fatty liver. Prominent stool retained in the rectosigmoid colon.
[2022-02-26 15:19] VITALS: TEMP 97.8
[2022-02-26 15:23] VITALS: BP 121/64; O2SAT 97
--- NOTE | 2022-02-27 08:52 | EKG ---
Test Date: 2022-02-26 Test Time: 11:35:56 Input Output Clerk: CARLEE MEASUREMENT RESULTS: Intervals: Rate: 57 TX: QRSD: 152 QT: 458 QTc: 445 [place]: P: TX: QRS: 82 T: -53 INTERPRETIVE STATEMENTS: Atrial fibrillation with slow ventricular response Left bundle branch block Abnormal ECG Compared to ECG 01/05/2020 08:43:52 Left bundle-branch block now present ST (T wave) deviation no longer present T-wave abnormality no longer present Electronically Signed On 02-27-22 08:47:18 CDT by Robert Mercado
--- NOTE | 2022-02-28 09:27 | EDPHYS ---
Physician Documentation [facility] Name: Juan Nelson Age: 76 yrs Sex: Male : 1945 Arrival Date: 02/26/2022 Time: 11:09 Bed 15 Private MD: Raymundo Marie ED Physician Donny Stein HPI: 02/26 11:41 This 76 yrs old Male presents to ER via Ambulatory with complaints of rn Abdominal Distention, Headache, Allergy Symptoms. 11:41 The patient presents with abdominal distention that is diffuse. Onset: The rn symptoms/episode began/occurred 1 week(s) ago. The symptoms do not radiate. Associated signs and symptoms: Pertinent negatives: blood in stools, chest pain, fever, testicular pain, vomiting, vomiting blood. The symptoms are described as achy, crampy. Modifying factors: The symptoms are alleviated by nothing, the symptoms are aggravated by nothing. Severity of pain: At its worst the pain was mild in the emergency department the pain is unchanged. The patient has experienced similar episodes in the past. The patient has not recently seen a physician. Pt reports here for 2 reasons, 1 week of abd distension that makes it hard to breathe when laying supine. Also here for nasal congestion, sore throat, and "allergies" for last few days. No fever. No chest pain. Reports breathing improves after sitting up and standing. Compliant with diuretic. Has never had enough fluid to drain from abdomen, just trace ascites. No vomiting/diarrhea.. Historical: - Allergies: 11:41 No Known Drug Allergies; bp - Home Meds: 11:41 Xarelto 20 mg Oral tab 1 tab once daily [Active]; levothyroxine 112 mcg tab 1 tab once bp daily [Active]; metformin 1,000 mg Oral tab 1 tab 2 times per day [Active]; [place] [Active]; spironolactone 25 mg Oral tab 1 tab once daily [Active]; paroxetine HCl 20 mg Oral tab 1 tab once daily [Active]; omeprazole 20 mg Oral cpDR 1 cap once daily [Active]; Jardiance 10 mg Oral tab 1 tab once daily [Active]; glipizide 10 mg Oral tab 1 tab 2 times per day [Active]; carvedilol 25 mg Oral tab 1 tab 2 times per day [Active]; Bactrim [Active]; - PMHx: 11:41 COPD; Hypothyroidism; Diabetes - NIDDM; bp - Immunization history:: Adult Immunizations up to date. - Social history:: Smoking status: Patient reports the use of cigarette tobacco products, smokes one pack cigarettes per day. - Family history:: not pertinent. - Hospitalizations: : No recent hospitalization is reported. ROS: 11:41 Constitutional: Negative for fever, chills, and weight loss, Eyes: Negative for injury, rn pain, redness, and discharge, Neck: Negative for injury, pain, and swelling, Cardiovascular: Negative for chest pain, palpitations, and edema, Respiratory: Negative for cough, wheezing, and pleuritic chest pain, Abdomen/GI: + abd distension, neg for vomiting/diarrhea Back: Negative for injury and pain, : Negative for injury, bleeding, discharge, and swelling, MS/Extremity: Negative for injury and deformity, Skin: Negative for injury, rash, and discoloration, Neuro: Negative for headache, weakness, numbness, tingling, and seizure. Exam: 11:41 Constitutional: This is a well developed, well nourished patient who is awake, alert, rn and in no acute distress. Head/Face: Normocephalic, atraumatic. Eyes: Periorbital areas with no swelling, redness, or edema. ENT: No stridor Cardiovascular: Irregular rhythm, regular rate Respiratory: Lungs have equal breath sounds bilaterally, clear to auscultation and percussion. No rales, rhonchi or wheezes noted. No increased work of breathing, no retractions or nasal flaring. Abdomen/GI: soft, mild tenderness mid abdomen, no rebound Skin: Warm, dry MS/ Extremity: Pulses equal, no cyanosis. Neurovascular intact. Full, normal range of motion. Equal circumference. Neuro: Awake and alert, GCS 15 17:05 ECG was reviewed by the Attending Physician. rn Vital Signs: 11:18 BP 115 / 68; Pulse 78; Resp 19; Temp 97.8(T); Pulse Ox 98% ; Weight 90.72 kg; Height 5 jean ft. 6 in. (167.64 cm); 12:19 BP 108 / 75; Pulse 79; Resp 16; Pulse Ox 96% ; bp 14:08 BP 121 / 64; Pulse 59; Resp 16; Pulse Ox 97% ; bp 11:18 Body Mass Index 32.28 (90.72 kg, 167.64 cm) jean MDM: 11:14 Patient medically screened. rn 13:26 Differential diagnosis: cholecystitis, Cholelithiasis, diverticulitis, gastritis, rn gastroesophageal reflux disease, non-specific abd pain, COVID, viral syndrome, URI. Data reviewed: vital signs, nurses notes, old medical records, lab test result(s), radiologic studies, CT scan, plain films, and as a result, I will discharge patient. Counseling: I had a detailed discussion with the patient and/or guardian regarding: the historical points, exam findings, and any diagnostic results supporting the discharge/admit diagnosis, lab results, radiology results, the need for outpatient follow up, to return to the emergency department if symptoms worsen or persist or if there are any questions or concerns that arise at home. Special discussion: Based on the patient's Hx, exam, and Dx evaluation, there is no indication for emergent surgery or inpatient Tx. It is understood by the patient/guardian that if the Sx's persist or worsen they need to return immediately for re-evaluation. I discussed with the patient/guardian in detail that at this point there is no indication for admission to the hospital. It is understood, however, that if the symptoms persist or worsen the patient needs to return immediately for re-evaluation. 02/26 11:30 Order name: CBC with Diff; Complete Time: 13: rn 02/26 11:30 Order name: CMP; Complete Time: 13: rn 02/26 11:30 Order name: Lipase; Complete Time: 13: rn 02/26 11:30 Order name: BNP; Complete Time: 13: rn 02/26 11:30 Order name: SARS-COV-2 RT PCR (Document "Date of Onset" if Symptomatic); Complete Time: rn 13:02/26 11:30 Order name: Flu; Complete Time: 13: rn 02/26 11:30 Order name: CT Abd/Pelvis - IV Contrast Only; Complete Time: 13:24 rn 02/26 11:30 Order name: IV Saline Lock; Complete Time: 11: rn 02/26 11:30 Order name: Labs collected and sent; Complete Time: rn 02/26 11:30 Order name: XRAY Chest (1 view); Complete Time: 13:03 rn 02/26 11:30 Order name: EKG; Complete Time: 11:32 rn 02/26 11:30 Order name: EKG - Nurse/Tech; Complete Time: 11:37 rn 02/26 12:02 Order name: CBC Smear Scan; Complete Time: 13:03 EDVA EC:05 Rate is 57 beats/min. Rhythm is irregularly irregular, A fib with No ectopy. QRS [place] rn is Normal. IA interval is normal. QRS interval is normal. QT interval is normal. No Q waves. T waves are Normal. No ST changes noted. Clinical impression: Atrial Fibrillation. Interpreted by me. Reviewed by me. Administered Medications: No medications were administered Disposition Summary: 02/26/22 13:27 Discharge Ordered Location: Home rn Problem: new rn Symptoms: have improved rn Condition: Stable rn Diagnosis - Constipation, unspecified rn - Acute upper respiratory infection, unspecified rn - Abdominal pain, unspecified rn Followup: rn - With: Private Physician - When: As needed - Reason: Recheck today's complaints, Re-evaluation by your physician Discharge Instructions: - Discharge Summary Sheet rn - Abdominal Pain, Adult rn - Constipation, Adult rn - Upper Respiratory Infection, Adult rn Forms: - Medication Reconciliation Form rn - Thank You Letter rn - Antibiotic burnisher and bumper - Prescription Opioid Use rn Prescriptions: - Zithromax Z-Hugo 250 mg Oral Tablet - take 1 tablet by ORAL route as directed for 5 days Day 1 - take two (2) tablets rn one time. Day 2, 3, 4 , 5 take one (1) tablet once daily.; 6 tablet; Refills: 0, Product Selection Permitted Signatures: Dispatcher [employer] [facility] Donny Stein MD MD rn Peltier, Brian RN RN bp Clarissa Morley RN RN jean
--- NOTE | 2022-02-28 09:27 | ER ---
Nurse's Notes [facility] Name: Juan Nelson Age: 76 yrs Sex: Male : 1945 Arrival Date: 02/26/2022 Time: 11:09 Bed 15 Private MD: Raymundo Marie Diagnosis: Constipation, unspecified;Acute upper respiratory infection, unspecified;Abdominal pain, unspecified Presentation: 02/26 11:18 Chief complaint: Patient states: pt reports abdominal distention, allergies/sinus head jean aches. Coronavirus screen: Vaccine status: Patient reports receiving the 2nd dose of the covid vaccine. Ebola Screen: Patient denies travel to an Ebola-affected area in the 21 days before illness onset. Initial Sepsis Screen: Does the patient meet any 2 criteria? No. Patient's initial sepsis screen is negative. Does the patient have a suspected source of infection? No. Patient's initial sepsis screen is negative. Risk Assessment: Do you want to hurt yourself or someone else? Patient reports no desire to harm self or others. Onset of symptoms was February 26, 2022. 11:18 Method Of Arrival: Ambulatory jean 11:18 Acuity: KRISTEL 3 jean Triage Assessment: 11:38 General: Appears in no apparent distress. comfortable, Behavior is calm, cooperative, bp appropriate for age. Pain: Complains of pain in abdomen. EENT: No deficits noted. Neuro: No deficits noted. Cardiovascular: Rhythm is sinus bradycardia. Respiratory: Airway is patent Respiratory effort is even, unlabored. GI: Reports ABDOMINAL DISTENSION. : No signs and/or symptoms were reported regarding the genitourinary system. Derm: No deficits noted. Musculoskeletal: No deficits noted. Historical: - Allergies: 11:41 No Known Drug Allergies; bp - Home Meds: 11:41 Xarelto 20 mg Oral tab 1 tab once daily [Active]; levothyroxine 112 mcg tab 1 tab once bp daily [Active]; metformin 1,000 mg Oral tab 1 tab 2 times per day [Active]; [place] [Active]; spironolactone 25 mg Oral tab 1 tab once daily [Active]; paroxetine HCl 20 mg Oral tab 1 tab once daily [Active]; omeprazole 20 mg Oral cpDR 1 cap once daily [Active]; Jardiance 10 mg Oral tab 1 tab once daily [Active]; glipizide 10 mg Oral tab 1 tab 2 times per day [Active]; carvedilol 25 mg Oral tab 1 tab 2 times per day [Active]; Bactrim [Active]; - PMHx: 11:41 COPD; Hypothyroidism; Diabetes - NIDDM; bp - Immunization history:: Adult Immunizations up to date. - Social history:: Smoking status: Patient reports the use of cigarette tobacco products, smokes one pack cigarettes per day. - Family history:: not pertinent. - Hospitalizations: : No recent hospitalization is reported. Screenin:41 Abuse screen: Denies threats or abuse. Denies injuries from another. Nutritional bp screening: No deficits noted. Tuberculosis screening: No symptoms or risk factors identified. Fall Risk None identified. Assessment: 11:40 General: SEE TRIAGE NOTE. bp 12:20 Reassessment: No changes from previously documented assessment. Patient and/or family bp updated on plan of care and expected duration. Pain level reassessed. 14:09 Reassessment: PT D/C HOME AMBULATORY WITH FAMILY, DX WITH URI AND CONSTIPATION. bp Vital Signs: 11:18 BP 115 / 68; Pulse 78; Resp 19; Temp 97.8(T); Pulse Ox 98% ; Weight 90.72 kg; Height 5 jean ft. 6 in. (167.64 cm); 12:19 BP 108 / 75; Pulse 79; Resp 16; Pulse Ox 96% ; bp 14:08 BP 121 / 64; Pulse 59; Resp 16; Pulse Ox 97% ; bp 11:18 Body Mass Index 32.28 (90.72 kg, 167.64 cm) jean ED Course: 11:09 Patient arrived in ED. am2 11:10 Raymundo Marie DO is Private Physician. am2 11:14 Donny Stein MD is Attending Physician. rn 11:20 Triage completed. jean 11:27 Venancio Matias, MELVIN is Primary Nurse. bp 11:37 Inserted saline lock: 20 gauge in right antecubital area, using aseptic technique. bp Blood collected. 11:38 Arm band placed on. bp 11:41 Patient has correct armband on for positive identification. Bed in low position. Call bp light in reach. Side rails up X2. Adult w/ patient. 12:09 XRAY Chest (1 view) In Process Unspecified. EDMS 13:11 CT Abd/Pelvis - IV Contrast Only In Process Unspecified. EDMS 14:09 No provider procedures requiring assistance completed. IV discontinued, intact, bp bleeding controlled, No redness/swelling at site. Pressure dressing applied. Administered Medications: No medications were administered Medication: 11:41 VIS not applicable for this client. bp Outcome: 13:27 Discharge ordered by . rn 14:09 Discharged to home ambulatory, with family. bp 14:09 Condition: stable 14:09 Discharge instructions given to patient, Instructed on discharge instructions, follow up and referral plans. medication usage, Demonstrated understanding of instructions, follow-up care, medications, Prescriptions given X 1. 14:14 Patient left the ED. bp Signatures: Dispatcher [employer] EDMS Donny Stein MD MD rn Moreno, Amanda am2 Peltier, Brian, RN RN bp Au-Stager, Clarissa RN RN jean
== END 2022-02-26 14:14 | disposition home or self-care (01) ==
LOC: ER 11:08
DX: K59.00 Constipation, unspecified (principal); J06.9 Acute upper respiratory infection, unspecified; R10.9 Unspecified abdominal pain; E11.9 Type 2 diabetes mellitus without complications; J44.9 Chronic obstructive pulmonary disease, unspecified; E03.9 Hypothyroidism, unspecified; F17.210 Nicotine dependence, cigarettes, uncomplicated; Z20.822 Contact with and (suspected) exposure to COVID-19; Z79.01 Long term (current) use of anticoagulants
CPT/HCPCS: 93005; 85025; 36415; 83690; 80053; 83880; 87804 ×2; 74177; 71045; U0003; Q9967; 99284

== ENCOUNTER 2022-08-24 10:16 | Emergency (ER) | payer OTHER ==
[2022-08-24] MEDS ORDERED: FAMOTIDINE 20 MG/2 ML VIAL IV ONE (10:59)
[2022-08-24 11:00] LABS: Absolute Lymphocytes (CBC) 2.5 K/uL (0.7-4.9); Hematocrit 41.6 % (39.6-49.0); MCV 90.8 fL (80-100); MPV 7.9 fL (7.6-11.3); RBC Red Blood Cell Count 4.58 M/uL (4.33-5.43)
[2022-08-24 11:11] LABS: Albumin 3.4 g/dL (3.4-5.0); Bilirubin Total 0.6 mg/dL (0.2-1.0); Potassium 4.5 mmol/L (3.5-5.1)
[2022-08-24] MEDS ORDERED: INSULIN -REGULAR HUMAN 50 UNIT/0.5 ML ML ONE (11:28)
[2022-08-24 11:30] LABS: SARS-COV-2 RT PCR POSITIVE (NEGATIVE)
--- NOTE | 2022-08-24 12:09 | RAD REPORT ---
EXAM DESCRIPTION: CT - Chest Abdomen Pelvis W Cont - 08/24/2022 11:33 am CLINICAL HISTORY: throat pain, abd distension COMPARISON: CT CHEST ABD PELVIS W CONTRAST dated 06/20/2014; Abdomen Pelvis W Contrast dated 022; CT-ANGIO,AORTIA/RO/RENAL dated 01/19/2022; Abdomen Pelvis W Contrast dated 10/28/2021; Abdomen Pelvis W Contrast dated 08/02/2019; Abdomen Pelvis W Contrast dated 05/21/2017 TECHNIQUE: Following dynamic enhancement using 100 milliliters nonionic IV contrast, axial imaging o f the chest, abdomen and pelvis was performed. Biphasic technique was utilized through the abdomen. Oral contrast: None. All CT scans are performed using dose optimization technique as appropriate and may include automated exposure control or mA/KV adjustment according to patient size. FINDINGS: In the posterior left apex there are 2 small 4 mm or less juxtapleural nodules at the supe rior most aspect of the fissure. These are stable from 2014 imaging. A cluster of nodularity is seen in the posterolateral left lower lobe (image 35/62). These are stable back to October 2021 but cannot b e confirmed as stable for greater duration. Minimal scarring changes are present in the lung guerra. No pleural effusion, pleural thickening or pneumothorax. Aortic atherosclerotic calcifications are pr esent without aneurysm. Dense coronary artery calcifications are seen. A few small nonspecific medias tinal lymph nodes are seen. Small right hilar lymph nodes are present as well. These are not clearly different from the 2014 study. Pathologic adenopathy is not suspected. No chest wall mass or axillary lymphadenopathy. Patient has significant cardiomegaly without pericardial thickening or effusion. No focal liver lesions seen. Liver has a nodularity to the capsule which can indicate underlying hepa tic parenchymal disease. A focal liver lesion is not identified. No portal vein abnormality seen. Spl een and pancreas are unremarkable. Gallbladder is absent. No biliary tree dilatation. Symmetric renal function is seen with no mass or hydronephrosis. No pyelonephritis or acute renal pa renchymal process seen. No adrenal abnormalities. Near the trigone of the urinary bladder there is an approximately 2.5-3 centimeter lobulated soft tissue mass that may be part of prostate gland project ing into the bladder base or true bladder base mass. This has been described as far back as the 2019 study. Size is not grossly different. No dilated bowel loops or focal bowel wall thickening. No acute GI findings seen. Trace amount of asc ites is present in the peritoneal cavity. No new or progressive mass or lymphadenopathy. No free air or pneumatosis. Disc and bone degenerative changes are present. Partial compression fracture near the thoracolumbar j unction matches prior imaging. No significant vascular findings. IMPRESSION: Pronounced cardiomegaly without pericardial thickening or effusion. CT findings do not s uggest significant failure or volume overload. No acute infiltrate. Small cluster of nodularity in the posterolateral left lower lobe is stable to at least October 2021 bu t longer stability cannot be determined.Long-term significance is doubtful but follow-up CT chest rajendra ging in 6 months could be performed to assure no growth. No acute findings in the abdomen or pelvis. The liver shows a nodular capsule contour which can indic ate hepatic parenchymal disease. There are no focal liver lesions present. Only trace ascites present . Lobulated mass near the trigone of the urinary bladder has been detailed on multiple prior studies. I t is unknown if this is mass has been the evaluated. This could be a true bladder mass or prominent p rostate lobulation extending into the bladder.
--- NOTE | 2022-08-24 12:19 | EDPHYS ---
Physician Documentation [facility] Name: Juan Nelson Age: 77 yrs Sex: Male : 1945 Arrival Date: 08/24/2022 Time: 10:[address] Private MD: ED Physician Amauri Colon HPI: 08/24 10:51 This 77 yrs old Male presents to ER via Ambulatory with complaints of Pain snw When Swallowing. 10:51 The patient or guardian complains of pain, that is chronic, pain with swallowing x 1 snw year, cough, postnasal drip x 1 week. The symptoms are located sore throat. Context: The neck injury/problem resulted from from unknown cause. Associated signs and symptoms: Pertinent positives: cough. The pain does not radiate. Severity of symptoms: At their worst the symptoms were moderate. The patient has experienced similar episodes in the past. came here in February for abd pain/distension. dx constipation. Pt continues with same s/s, denies constipation. Historical: - Allergies: 10:31 No Known Drug Allergies; hb - Home Meds: 10:31 Xarelto 20 mg Oral tab 1 tab once daily [Active]; omeprazole 20 mg Oral cpDR 1 cap once hb daily [Active]; levothyroxine 112 mcg tab 1 tab once daily [Active]; glipizide 10 mg Oral tab 1 tab 2 times per day [Active]; metformin 1,000 mg Oral tab 1 tab 2 times per day [Active]; carvedilol 25 mg Oral tab 1 tab 2 times per day [Active]; furosemide 40 mg Oral tab 1 tab once daily [Active]; atorvastatin 10 mg oral tab 1 tab once daily [Active]; pantoprazole 40 mg oral TbEC 1 tab once daily [Active]; - PMHx: 10:31 COPD; Diabetes - NIDDM; Hypothyroidism; hb - Immunization history:: Adult Immunizations up to date. - Social history:: Smoking status: Patient denies any tobacco usage or history of. ROS: 10:49 Constitutional: Negative for fever, chills, and weight loss, Eyes: Negative for injury, snw pain, redness, and discharge, Neck: Negative for injury, pain, and swelling, Cardiovascular: Negative for chest pain, palpitations, and edema, Respiratory: Negative for shortness of breath, wheezing, and pleuritic chest pain, + cough Abdomen/GI: Negative for abdominal pain, nausea, vomiting, diarrhea, and constipation, Back: Negative for injury and pain, : Negative for injury, bleeding, discharge, and swelling, MS/Extremity: Negative for injury and deformity, Skin: Negative for injury, rash, and discoloration, Neuro: Negative for headache, weakness, numbness, tingling, and seizure. 10:49 ENT: Positive for sinus pain, sore throat. Exam: 10:48 Constitutional: This is a well developed, well nourished patient who is awake, alert, snw and in no acute distress. Head/Face: Normocephalic, atraumatic. Eyes: Pupils equal round and reactive to light, extra-ocular motions intact. Lids and lashes normal. Conjunctiva and sclera are non-icteric and not injected. Cornea within normal limits. Periorbital areas with no swelling, redness, or edema. ENT: Nares patent. No nasal discharge, no septal abnormalities noted. Tympanic membranes are normal and external auditory canals are clear. Oropharynx with no redness, swelling, or masses, exudates, or evidence of obstruction, uvula midline. Mucous membranes moist. Neck: Trachea midline, no thyromegaly or masses palpated, and no cervical lymphadenopathy. Supple, full range of motion without nuchal rigidity, or vertebral point tenderness. No Meningismus. 10:48 Respiratory: Lungs have equal breath sounds bilaterally, clear to auscultation and percussion. No rales, rhonchi or wheezes noted. No increased work of breathing, no retractions or nasal flaring. Abdomen/GI: Soft, non-tender, with normal bowel sounds. + distension no tympany. No guarding or rebound. No evidence of tenderness throughout. Back: No spinal tenderness. No costovertebral tenderness. Full range of motion. Skin: Warm, dry with normal turgor. Normal color with no rashes, no lesions, and no evidence of cellulitis. MS/ Extremity: Pulses equal, no cyanosis. Neurovascular intact. Full, normal range of motion. Neuro: Awake and alert, GCS 15, oriented to person, place, time, and situation. Cranial nerves II-XII grossly intact. Motor strength 5/5 in all extremities. Sensory grossly intact. Cerebellar exam normal. Normal gait. Psych: Awake, alert, with orientation to person, place and time. Behavior, mood, and affect are within normal limits. 10:48 Chest/axilla: Inspection: barrel chested. 10:48 Cardiovascular: Rate: normal, Rhythm: irregular, Heart sounds: murmur, gallop. Vital Signs: 10:28 BP 135 / 99; Pulse 87; Resp 18; Temp 97.7; Pulse Ox 98% on R/A; Weight 93.44 kg; Height hb 5 ft. 8 in. (172.72 cm); Pain 3/10; 10:28 Body Mass Index 31.32 (93.44 kg, 172.72 cm) hb MDM: 10:37 Patient medically screened. snw 12:14 Differential diagnosis: strep, viral infection, bacterial infection. Data reviewed: snw vital signs, nurses notes, lab test result(s), radiologic studies. I considered the following discharge prescriptions or medication management in the emergency department Pt to continue current medications to include, lasix, xarelto and covid supplements. 12:16 Counseling: I had a detailed discussion with the patient and/or guardian regarding: the snw historical points, exam findings, and any diagnostic results supporting the discharge/admit diagnosis, the presence of at least one elevated blood pressure reading (>120/80) during this emergency department visit, lab results, radiology results, the need for outpatient follow up, to return to the emergency department if symptoms worsen or persist or if there are any questions or concerns that arise at home. Special discussion: I have referred the patient to see his PCP for further evaluation of high blood pressure. Based on the history and exam findings, there is no indication for further emergent testing or inpatient evaluation. I discussed with the patient/guardian the need to see the primary care provider for further evaluation of the symptoms. 08/24 10:37 Order name: CBC with Diff; Complete Time: 11:03 snw 08/24 10:37 Order name: CMP; Complete Time: 11:13 snw 08/24 10:37 Order name: Lipase; Complete Time: 11:13 snw 08/24 10:37 Order name: Strep; Complete Time: 11:28 snw 08/24 10:37 Order name: COVID-19/FLU A+B; Complete Time: 11:47 snw 08/24 11:26 Order name: Throat Culture EDMN 08/24 10:37 Order name: EKG; Complete Time: 10:38 snw 08/24 10:37 Order name: EKG - Nurse/Tech; Complete Time: 10:52 snw 08/24 10:37 Order name: CT Chest, Abdomen, Pelvis - W/Contrast; Complete Time: 12:12 snw 08/24 10:37 Order name: IV Saline Lock; Complete Time: 10:51 snw 08/24 10:37 Order name: Labs collected and sent; Complete Time: 10:51 snw EC:01 Rate is 84 beats/min. Rhythm is irregularly irregular. QRS interval is prolonged. snw Clinical impression: Atrial Fibrillation. Administered Medications: 11:00 Drug: Pepcid (famotidine) 20 mg Route: IVP; Site: right antecubital; vg1 11:30 Follow up: Response: No adverse reaction ap3 11:44 Drug: Insulin Regular Human 2 units {Co-Signature: kc6 (Arlin Hernandez RN).} Route: ap3 IVP; Site: right antecubital; 12:42 Follow up: Response: No adverse reaction ap3 12:42 Drug: Acetylcysteine 600 mg Route: PO; ap3 Disposition: 16:07 Co-signature as Attending Physician, Amauri Colon MD I reviewed the patient's care rt provided by the Advanced Practice Provider and agree with the diagnosis and treatment plan. Disposition Summary: 08/24/22 12:18 Discharge Ordered Location: Home snw Condition: Stable snw Diagnosis - SARS-associated coronavirus as the cause of diseases classified elsewhere snw - Unspecified atrial fibrillation snw - Acute pharyngitis, unspecified snw Followup: snw - With: Emergency Department - When: As needed - Reason: Worsening of condition Followup: snw - With: Private Physician - When: 2 - 3 days - Reason: Recheck today's complaints, Continuance of care, Re-evaluation by your physician Discharge Instructions: - Discharge Summary Sheet snw - Atrial Fibrillation snw - Pharyngitis snw - COVID-19 snw - 10 Things You Can Do to Manage Your COVID-19 Symptoms at Home - [facility] snw Forms: - Medication Reconciliation Form snw - Thank You Letter snw - Antibiotic Education snw - Prescription Opioid Use snw Prescriptions: - acetylcysteine (bulk) - take 600 milligram by ORAL route 2 times per day; 100 capsule; Refills: 0, snw Product Selection Permitted - Pepcid 20 mg Oral Tablet - take 1 tablet by ORAL route once daily; 20 tablet; Refills: 0, Product snw Selection Permitted Signatures: Dispatcher [employer] EDMS Christianne Lopez, MUFFLE WORKER-C MUFFLE WORKER-Csnw Clarissa Marin RN RN Kiki Daley RN RN ap3 Dimple Horvath RN RN vg1 mAauri Colon MD MD rt Arlin Hernandez RN kc6
--- NOTE | 2022-08-24 12:19 | ER ---
Nurse's Notes [facility] Name: Juan Nelson Age: 77 yrs Sex: Male : 1945 Arrival Date: 08/24/2022 Time: 10:[address] Private MD: Diagnosis: SARS-associated coronavirus as the cause of diseases classified elsewhere;Unspecified atrial fibrillation;Acute pharyngitis, unspecified Presentation: 08/24 10:28 Chief complaint: Cough and congestion x 1 year, worse over last few days. Also reports hb pink tinged sputum. Coronavirus screen: Client presents with at least one sign or symptom that may indicate coronavirus-19. Standard/surgical mask placed on the client. Provider contacted for isolation considerations. Ebola Screen: No symptoms or risks identified at this time. Initial Sepsis Screen: Does the patient meet any 2 criteria? No. Patient's initial sepsis screen is negative. Does the patient have a suspected source of infection? No. Patient's initial sepsis screen is negative. Risk Assessment: Do you want to hurt yourself or someone else? Patient reports no desire to harm self or others. Onset of symptoms is unknown. 10:28 Method Of Arrival: Ambulatory hb 10:33 Acuity: KRISTEL 3 hb Triage Assessment: 10:51 General: Appears in no apparent distress. Behavior is calm, cooperative. Pain:. EENT: ap3 Reports pain when swallowing. Historical: - Allergies: 10:31 No Known Drug Allergies; hb - Home Meds: 10:31 Xarelto 20 mg Oral tab 1 tab once daily [Active]; omeprazole 20 mg Oral cpDR 1 cap once hb daily [Active]; levothyroxine 112 mcg tab 1 tab once daily [Active]; glipizide 10 mg Oral tab 1 tab 2 times per day [Active]; metformin 1,000 mg Oral tab 1 tab 2 times per day [Active]; carvedilol 25 mg Oral tab 1 tab 2 times per day [Active]; furosemide 40 mg Oral tab 1 tab once daily [Active]; atorvastatin 10 mg oral tab 1 tab once daily [Active]; pantoprazole 40 mg oral TbEC 1 tab once daily [Active]; - PMHx: 10:31 COPD; Diabetes - NIDDM; Hypothyroidism; hb - Immunization history:: Adult Immunizations up to date. - Social history:: Smoking status: Patient denies any tobacco usage or history of. Screenin:51 [facility] ED Fall Risk Assessment (Adult) History of falling in the last 3 months, ap3 including since admission No falls in past 3 months (0 pts). Abuse screen: Denies threats or abuse. Nutritional screening: No deficits noted. Tuberculosis screening: No symptoms or risk factors identified. Assessment: 14:10 Reassessment: Patient is alert, oriented x 3, equal unlabored respirations, skin aa5 warm/dry/pink. Vital Signs: 10:28 BP 135 / 99; Pulse 87; Resp 18; Temp 97.7; Pulse Ox 98% on R/A; Weight 93.44 kg; Height hb 5 ft. 8 in. (172.72 cm); Pain 3/10; 10:28 Body Mass Index 31.32 (93.44 kg, 172.72 cm) hb ED Course: 10:19 Patient arrived in ED. rg4 10:27 Christianne Lopez FNP-C [facility]. snw 10:27 Amauri Colon MD is Attending Physician. snw 10:33 Triage completed. hb 10:33 Arm band placed on. hb 10:41 Kiki Lang, RN is Primary Nurse. ap3 10:41 COVID-19/FLU A+B Sent. ap3 10:41 Strep Sent. ap3 10:45 Strep Sent. hb 10:45 COVID-19/FLU A+B Sent. hb 10:51 CBC with Diff Sent. ap3 10:51 CMP Sent. ap3 10:51 Lipase Sent. ap3 10:51 Inserted saline lock: 20 gauge in right antecubital area, using aseptic technique. ap3 Blood collected. 10:52 Patient has correct armband on for positive identification. Bed in low position. Call ap3 light in reach. Side rails up X 1. Adult w/ patient. panel monitor on. Pulse ox on. NIBP on. Door closed. Noise minimized. 11:35 CT Chest, Abdomen, Pelvis - W/Contrast In Process Unspecified. EDMS 14:10 No provider procedures requiring assistance completed. IV discontinued, intact, aa5 bleeding controlled, No redness/swelling at site. Pressure dressing applied. Administered Medications: 11:00 Drug: Pepcid (famotidine) 20 mg Route: IVP; Site: right antecubital; vg1 11:30 Follow up: Response: No adverse reaction ap3 11:44 Drug: Insulin Regular Human 2 units {Co-Signature: kc6 (Arlin Hernandez RN).} Route: ap3 IVP; Site: right antecubital; 12:42 Follow up: Response: No adverse reaction ap3 12:42 Drug: Acetylcysteine 600 mg Route: PO; ap3 Medication: 14:12 VIS not applicable for this client. aa5 Outcome: 12:18 Discharge ordered by . snmae 14:10 Discharged to home ambulatory, with significant other. aa5 14:10 Condition: stable 14:10 Discharge instructions given to patient, Instructed on discharge instructions, follow up and referral plans. medication usage, Demonstrated understanding of instructions, follow-up care, medications, Prescriptions given X 2. 14:12 Patient left the ED. aa5 Signatures: Dispatcher [employer] EDMS Christianne Lopez, SUPERVISOR PILE DRIVING-C SUPERVISOR PILE DRIVING-Csnw Clara Byrne, RN RN aa5 Clarissa Marin RN RN Mary Horvath 4 Kiki Lang RN RN ap3 Dimple Horvath RN RN vg1 Arlin Hernandez RN kc6 Corrections: (The following items were deleted from the chart) 10:44 10:33 Acuity: KRISTEL 4 hb hb
[2022-08-24] MEDS ORDERED: ACETYLCYST 6,000 MG/30 ML VIAL ONE (12:38)
[2022-08-24 14:16] VITALS: BP 135/99; TEMP 97.7; O2SAT 98
== END 2022-08-24 14:12 | disposition home or self-care (01) ==
LOC: ER 10:16
DX: U07.1 COVID-19 (principal); I48.91 Unspecified atrial fibrillation; Z79.01 Long term (current) use of anticoagulants; E11.9 Type 2 diabetes mellitus without complications; J44.9 Chronic obstructive pulmonary disease, unspecified; E03.9 Hypothyroidism, unspecified
CPT/HCPCS: 87070; 85025; 36415; 87081; 83690; 80053; 0240U; 71260; 74177; 96375; 96374; 99284; Q9967; J1815; J7608; 93005

== ENCOUNTER 2022-09-13 07:33 | Emergency (ER) | payer OTHER ==
--- OUTSIDE RECORDS SUMMARY | 2022-09-13 07:39 | XMS REPORT | Continuity of Care Document ---
:1945 Author Organization [facility] t Address [address] [place] [address] Care Team Providers Name Role Phone Becca Marie DO Primary Care Physician HALLIE ABREU Attending Clinician Unavailable BECCA MARIE Attending Clinician Unavailable [id number] Attending Clinician Unavailable Becca Marie DO Attending Clinician AVA MENDIETA Attending Clinician Unavailable Payers Payer Name Policy Type Policy Number Effective Date Expiration Date S jean-pierre [facility] TXP 7 [id number] 2021 CLASSIC NO PREMIUM 00:00:00 R2T Problems Condition Condition Condition Status Onset Resolution Last Treating Co mments Source Name Details Category Date Date Treatment Clinician Date 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 00:00: - with with 00 Externa peripheral peripheral l vascular vascular disease 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 08-26 Se ybold to to 00:00: - conditions conditions 00 Ex terna classified classified l elsewhere elsewhere Well adult Well adult Disease Active Gaby kimbrough exam exam - Seybold 00:00: - 00 Externa l Current Current Disease Active Anai mild mild 9- 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:00: - major major 00 Externa depressive depressive l disorder disorder without without prior prior episode episode Gastroesop Gastroesop Disease Active Gaby kimbrough hageal hageal 6-29 Seybold reflux reflux 00:00: - disease disease 00 Externa without without l esophagiti esophagiti s s Diabetic Diabetic Disease Active Kelse y ulcer of ulcer of 429 Seybol d toe of toe of 00:00: - right foot right foot 00 Ex terna associated associated l with type with type 2 diabetes 2 diabetes mellitus, mellitus, limited to limited to breakdown breakdown of skin of skin 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 00 Exte rna to to l inadequate inadequate dietary dietary iron iron intake intake Acute Acute Disease Active Anai hematogeno hematogeno 4- Se ybold us 00:00: 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 right foot Seasonal Seasonal Disease Active Kelse y allergic allergic 4- Seybol d rhinitis rhinitis 00:00: - due to due to 00 Externa pollen pollen l Chronic Chronic Disease Active Anai pleural pleural 4-05 Seybold effusion effusion 00:00: - 00 Externa l 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:00: - heart heart 00 Externa failure failure l Pulmonary Pulmonary Disease Active Rakan maya hypertensi hypertensi 4-05 Se ybold on on 00:00: - 00 Externa l 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-05 Seybol d mellitus mellitus 00:00: - with with 00 Externa hyperlipid hyperlipid l emia emia Fatty Fatty Disease Active Anai liver liver 4-05 Seybold 00:00: - 00 Externa l 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-05 Seybol d mellitus mellitus 00:00: with foot with foot 00 ulcer, ulcer, without without long-term long-term current current use of use of insulin insulin 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 00:00: - failure, failure, 00 Hyperion Administrator a unspecifie unspecifie l d heart d heart failure failure type type Hypercoagu Hypercoagu Disease Active Gaby elsemare lable lable 3 Seybold state due state due 00:00: - 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 00 Exte rna fibrillati fibrillati l on on Chronic Chronic Disease Active Anai obstructiv obstructiv -18 Se ybold e e 00:00: - pulmonary pulmonary 00 Exte rna disease disease l Obesity Obesity Disease Active Anai (BMI (BMI 2-18 Seybold 30.0-34.9) 30.0-34.9) 00:00: - 00 Externa l 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 Social History Social Habit Start Date Stop Date Quantity Comments Source History of tobacco Cigarette Smoker Anai Nieto - use External Alcohol intake 2022-09-07 2022-09-07 Ex-drinker Anai tran - 00:00:00 00:00:00 (finding) External Education 2021-09-15 2021-09-15 5 Anai Nieto - 00:00:00 00:00:00 External Cigarettes smoked 2021-09-15 2021-09-15 Anai Nieto - current (pack per 00:00:00 00:00:00 Externa l day) - Reported Cigarette 2021-09-15 2021-09-15 Anai Nieto - pack-years 00:00:00 00:00:00 External Tobacco use and 2021-09-15 2021-09-15 Smokeless tobacco Ke stephany Nieto - exposure 00:00:00 00:00:00 non-user External Sex [birth year] Anai Se ybold - 00:00:00 00:00:00 External Smoking Status Start Date Stop Date Source Smokes tobacco daily 2021-09-15 00:00:00 Anai Seybold - External Medications Ordered Filled Start Stop Current Ordering Indication Dosage Frequency Signature Comments Components Source Medication Medication Date Date Medication? Clinician (SIG) Name Name Famotidine 2022- No 20mg Take 20 mg Anai (PEPCID) 20 2-10 02-10 by mouth 2 S eybold MG oral 14:15: 00:00 times - tablet 32 :00 daily Externa l Umeclidiniu Yes [id number] Inhale 1 Anai m Hanson 2-10 inhalation Seyb old (Incruse 13:39: into the - Ellipta) 22 lungs Externa 62.5 daily l MCG/INH inhalation AEROSOL POWDER, BREATH ACTIVATED Lidocaine 5 Yes Apply 1 Rakan sey % apply 2-10 applicatio Seybol d externally 13:39: n - Ointment 22 topically Hyperion Administrator a as needed l Semaglutide Yes [id number] .25mg Inject Anai (0.25 or 2-10 0.25 mg Seybold 0.5 00:00: into the - mg/dose) 2 00 skin once Exte rna mg/1.5 mL a week l SQ Solution Pen-Injecto r Pantoprazol 2022- No Kelse y e Sodium 40 2-09 02-10 Seybold MG oral 00:00: 00:00 - Tablet 00 :00 Externa Delayed l Response Famotidine Yes 20mg Take 20 mg K elsey (PEPCID) 20 -27 by mouth Seyb old MG oral 00:00: daily - tablet 00 Externa l Advair Yes Anai Diskus 1-22 Seybold 250-50 00:00: - MCG/ACT 00 Externa inhalation l AEROSOL POWDER, BREATH ACTIVATED Citalopram Yes [id number] TAKE 1 K elsey Hydrobromid 1-17 TABLET(10 Sey bold e 10 MG 00:00: MG) BY - oral Tablet 00 MOUTH Externa DAILY l Cetirizine 2021-07 Yes [id number] 5mg Take 1 K elsey HCl 5 MG 2-20 tablet (5 Seybol d oral Tablet 00:00: mg total) - 00 by mouth Externa daily l FLUTICASONE 2021-07 Yes [id number] 50ug Use 1 K elsey PROPIONATE, 2-20 spray (50 Sey bold NASAL, 50 00:00: mcg total) - MCG/ACT 00 in each Externa nasal nostril l Suspension daily Cetirizine 2021-07 Yes [id number] 5mg Take 1 K elsey HCl 5 MG 2-20 tablet (5 Seybol d oral Tablet 00:00: mg total) - 00 by mouth Externa daily l FLUTICASONE 2021-07 Yes [id number] 50ug Use 1 K elsey PROPIONATE, 2-20 spray (50 Sey bold NASAL, 50 00:00: mcg total) - MCG/ACT 00 in each Externa nasal nostril l Suspension daily FLUTICASONE 2021-07 Yes [id number] 50ug Use 1 K elsey PROPIONATE, 1-29 spray (50 Sey bold NASAL, 50 00:00: mcg total) - MCG/ACT 00 in each Externa nasal nostril l Suspension daily FLUTICASONE 2021-07- No [id number] 50ug Use 1 Anai PROPIONATE, 1-29 12-20 spray (50 Se ybold NASAL, 50 00:00: 00:00 mcg total) - MCG/ACT 00 :00 in each Externa nasal nostril l Suspension daily Levothyroxi 2021-07 Yes [id number] TAKE 1 Anai ne Sodium 1-07 TABLET(112 Seyb old 112 MCG 00:00: MCG) BY - oral Tablet 00 MOUTH Externa EVERY l MORNING ON AN EMPTY STOMACH Levothyroxi 2021-07 Yes [id number] TAKE 1 Anai ne Sodium 1-07 TABLET(112 Seyb old 112 MCG 00:00: MCG) BY - oral Tablet 00 MOUTH Externa EVERY l MORNING ON AN EMPTY STOMACH Levothyroxi 2021-07 Yes [id number] TAKE 1 Anai ne Sodium 1-07 TABLET(112 Seyb old 112 MCG 00:00: MCG) BY - oral Tablet 00 MOUTH Externa EVERY l MORNING ON AN EMPTY STOMACH Spironolact 2021-07 Yes [id number] TAKE 1 Anai one 25 MG 0-19 TABLET(25 Seybo ld oral Tablet 00:00: MG) BY - 00 MOUTH Externa DAILY l Spironolact 2021-07 Yes [id number] TAKE 1 Anai one 25 MG 0-19 TABLET(25 Seybo ld oral Tablet 00:00: MG) BY - 00 MOUTH Externa DAILY l Spironolact 2021-07 Yes [id number] TAKE 1 Anai one 25 MG 0-19 TABLET(25 Seybo ld oral Tablet 00:00: MG) BY - 00 MOUTH Externa DAILY l Umeclidiniu Yes [id number] Inhale 1 Anai quiros Hanson 9-29 inhalation Seyb old (Incruse 08:57: into the - Ellipta) 43 lungs Externa 62.5 daily l MCG/INH inhalation AEROSOL POWDER, BREATH ACTIVATED Lidocaine Yes Apply 1 Rakan sey % apply 04-26 applicatio Seybol d externally 08:57: n - Ointment 43 topically Hyperion Administrator a as needed l Umeclidiniu Yes [id number] Inhale 1 Anai quiros Hanson -29 inhalation Seyb old (Incruse 08:57: into the - Ellipta) 43 lungs Externa 62.5 daily l MCG/INH inhalation AEROSOL POWDER, BREATH ACTIVATED Lidocaine Yes Apply 1 Rakan sey % apply 04-26 applicatio Seybol d externally 08:57: n - Ointment 43 topically Hyperion Administrator a as needed l Umeclidiniu Yes [id number] Inhale 1 Anai quiros Hanson -29 inhalation Seyb old (Incruse 08:57: into the - Ellipta) 43 lungs Externa 62.5 daily l MCG/INH inhalation AEROSOL POWDER, BREATH ACTIVATED Lidocaine Yes Apply 1 Rakan sey % apply 04-26 applicatio Seybol d externally 08:57: n - Ointment 43 topically Hyperion Administrator a as needed l Triamcinolo 2021- No [id number] Apply to Anai ne 04-26 10-28 affected Seybold Acetonide 00:00: 04:59 skin twice - 0.1 % apply 00 :00 daily for Ext lalitha externally 14 days. l Cream Citalopram Yes [id number] 10mg Take 1 K elsey Hydrobromid 9-12 tablet (10 Se ybold e (CeleXA) 00:00: mg total) - 10 MG oral 00 by mouth Exter na Tablet daily l Atorvastati 2021-0 Yes [id number] 10mg Take 1 Anai n Calcium 9-12 tablet (10 Seyb old (Lipitor) 00:00: mg total) - 10 MG oral 00 by mouth Exter na Tablet daily l Citalopram 2021-0 Yes [id number] 10mg Take 1 K elsey Hydrobromid 9-12 tablet (10 Se ybold e (CeleXA) 00:00: mg total) - 10 MG oral 00 by mouth Exter na Tablet daily l Atorvastati 2021-0 Yes [id number] 10mg Take 1 Anai n Calcium 9-12 tablet (10 Seyb old (Lipitor) 00:00: mg total) - 10 MG oral 00 by mouth Exter na Tablet daily l Citalopram 2021-0 Yes [id number] 10mg Take 1 K elsey Hydrobromid 9-12 tablet (10 Se ybold e (CeleXA) 00:00: mg total) - 10 MG oral 00 by mouth Exter na Tablet daily l Atorvastati 2021-0 Yes [id number] 10mg Take 1 Anai n Calcium 9-12 tablet (10 Seyb old (Lipitor) 00:00: mg total) - 10 MG oral 00 by mouth Exter na Tablet daily l Atorvastati 2021-0 Yes [id number] 10mg Take 1 Anai n Calcium 9-12 tablet (10 Seyb old (Lipitor) 00:00: mg total) - 10 MG oral 00 by mouth Exter na Tablet daily l Carvedilol 2021-0 Yes [id number] 25mg Take 1 K elsey 25 MG oral 9-02 tablet (25 Sey bold Tablet 00:00: mg total) - 00 by mouth Externa in the l morning and 1 tablet (25 mg total) in the evening. Take with meals. Carvedilol 2021-0 Yes [id number] 25mg Take 1 K elsey 25 MG oral 9-02 tablet (25 Sey bold Tablet 00:00: mg total) - 00 by mouth Externa in the l morning and 1 tablet (25 mg total) in the evening. Take with meals. Carvedilol 2021-0 Yes [id number] 25mg Take 1 K elsey 25 MG oral 9-02 tablet (25 Sey bold Tablet 00:00: mg total) - 00 by mouth Externa in the l morning and 1 tablet (25 mg total) in the evening. Take with meals. Carvedilol Yes [id number] 25mg Take 1 K elsey 25 MG oral 9-02 tablet (25 Sey bold Tablet 00:00: mg total) - 00 by mouth Externa in the l morning and 1 tablet (25 mg total) in the evening. Take with meals. Pantoprazol 0 Yes 40mg Take 40 mg Anai e Sodium 40 8-24 by mouth Seyb old MG oral 00:00: daily - Tablet 00 Externa Delayed l Response Pantoprazol 0 Yes 40mg Take 40 mg Anai e Sodium 40 8-24 by mouth Seyb old MG oral 00:00: daily - Tablet 00 Externa Delayed l Response Pantoprazol 0 2021- No 40mg Take 40 mg Anai e Sodium 40 8-24 12-20 by mouth Sey bold MG oral 00:00: 00:00 daily - Tablet 00 :00 Externa Delayed l Response FLUTICASONE 0 Yes [id number] 50ug Use 1 K elsey PROPIONATE, 8-10 spray (50 Sey bold NASAL, 50 00:00: mcg total) - MCG/ACT 00 in each Externa nasal nostril l Suspension daily glipiZIDE Yes [id number] 10mg Take 1 Ke lsey 10 MG oral 8-10 tablet (10 Sey bold Tablet 00:00: mg total) - 00 by mouth 2 Externa times l daily Omeprazole 0 Yes [id number] 40mg Take 1 Anai 40 MG oral 8-10 capsule Seybol d Delayed 00:00: (40 mg - Release 00 total) by Externa Capsule mouth l daily glipiZIDE 2021-0 Yes [id number] 10mg Take 1 Ke lsey 10 MG oral 8-10 tablet (10 Sey bold Tablet 00:00: mg total) - 00 by mouth 2 Externa times l daily Omeprazole 0 Yes [id number] 40mg Take 1 Anai 40 MG oral 8-10 capsule Seybol d Delayed 00:00: (40 mg - Release 00 total) by Externa Capsule mouth l daily glipiZIDE 2022-0 Yes [id number] 10mg Take 1 Ke lsey 10 MG oral 8-10 tablet (10 Sey bold Tablet 00:00: mg total) - 00 by mouth 2 Externa times l daily Omeprazole 2021-0 Yes [id number] 40mg Take 1 Anai 40 MG oral 8-10 capsule Seybol d Delayed 00:00: (40 mg - Release 00 total) by Externa Capsule mouth l daily glipiZIDE 2021-0 Yes [id number] 10mg Take 1 Ke lsey 10 MG oral 8-10 tablet (10 Sey bold Tablet 00:00: mg total) - 00 by mouth 2 Externa times l daily Omeprazole 2021-0 2023- No [id number] 40mg Take 1 Anai 40 MG oral 8-10 02-10 capsule Seybo ld Delayed 00:00: 00:00 (40 mg - Release 00 :00 total) by Externa Capsule mouth l daily FLUTICASONE 2021-0 2022- No [id number] 50ug Use 1 Anai PROPIONATE, 8-10 11-29 spray (50 Se ybold NASAL, 50 00:00: 00:00 mcg total) - MCG/ACT 00 :00 in each Externa nasal nostril l Suspension daily Levothyroxi 2021-0 Yes [id number] 112ug Take 1 Anai ne Sodium 7-29 tablet Seybold 112 MCG 00:00: (112 mcg - oral Tablet 00 total) by Ext lalitha mouth l every morning ON AN EMPTY STOMACH Metformin 2021-0 Yes [id number] 1000mg Take 1 Anai HCl 1000 MG 7-25 tablet Seybol d oral Tablet 00:00: (1,000 mg - 00 total) by Externa mouth in l the morning and 1 tablet (1,000 mg total) in the evening. Take with meals. Metformin 2021-0 Yes [id number] 1000mg Take 1 Anai HCl 1000 MG 7-25 tablet Seybol d oral Tablet 00:00: (1,000 mg - 00 total) by Externa mouth in l the morning and 1 tablet (1,000 mg total) in the evening. Take with meals. Metformin 2021-0 Yes [id number] 1000mg Take 1 Anai HCl 1000 MG 7-25 tablet Seybol d oral Tablet 00:00: (1,000 mg - 00 total) by Externa mouth in l the morning and 1 tablet (1,000 mg total) in the evening. Take with meals. Metformin 2021- Yes [id number] 1000mg Take 1 Anai HCl 1000 MG 7-25 tablet Seybol d oral Tablet 00:00: (1,000 mg - 00 total) by Externa mouth in l the morning and 1 tablet (1,000 mg total) in the evening. Take with meals. Dapaglifloz Yes [id number] 1{each} Take 1 Anai in 01-26 each by Seybold Propanediol 00:00: mouth - (Farxiga) 5 00 daily Externa MG oral l Tablet Dapaglifloz 2021- Yes [id number] 1{each} Take 1 Anai in 01-26 each by Seybold Propanediol 00:00: mouth - (Farxiga) 5 00 daily Externa MG oral l Tablet Dapaglifloz 2021- Yes [id number] 1{each} Take 1 Anai in 01-26 each by Seybold Propanediol 00:00: mouth - (Farxiga) 5 00 daily Externa MG oral l Tablet Dapaglifloz 2023- No [id number] 1{each} Take 1 Anai in 01-26 02-10 each by Seybold Propanediol 00:00: 00:00 mouth - (Farxiga) 5 00 :00 daily Externa MG oral l Tablet Furosemide 2021-0 Yes [id number] 40mg Take 1 Anai (Lasix) 40 6-29 tablet (40 Sey bold MG oral 00:00: mg total) - Tablet 00 by mouth Externa daily l Furosemide 2021-0 Yes [id number] 40mg Take 1 Anai (Lasix) 40 6-29 tablet (40 Sey bold MG oral 00:00: mg total) - Tablet 00 by mouth Externa daily l Furosemide 2021-0 Yes [id number] 40mg Take 1 Anai (Lasix) 40 6-29 tablet (40 Sey bold MG oral 00:00: mg total) - Tablet 00 by mouth Externa daily l Furosemide 2021-0 Yes [id number] 40mg Take 1 Anai (Lasix) 40 6-29 tablet (40 Sey bold MG oral 00:00: mg total) - Tablet 00 by mouth Externa daily l Tramadol 2022-0 Yes 1{tbl} Q.25D Take 1 Samia ey HCl 50 MG 5-25 tablet by Seybo ld oral Tablet 00:00: mouth - 00 every 6 Externa hours as l needed FOR PAIN Tramadol Yes 1{tbl} Q.25D Take 1 Samia ey HCl 50 MG 5-25 tablet by Seybo ld oral Tablet 00:00: mouth - 00 every 6 Externa hours as l needed FOR PAIN Tramadol Yes 1{tbl} Q.25D Take 1 Samia ey HCl 50 MG 5-25 tablet by Seybo ld oral Tablet 00:00: mouth - 00 every 6 Externa hours as l needed FOR PAIN Tramadol Yes 1{tbl} Q.25D Take 1 Samia ey HCl 50 MG 5-25 tablet by Seybo ld oral Tablet 00:00: mouth - 00 every 6 Externa hours as l needed FOR PAIN Santyl 250 Yes APPLY TO Rakan sey UNIT/GM 5-04 WOUND Seybold apply 00:00: EVERY DAY - externally 00 Externa Ointment l Santyl 250 2021-0 Yes APPLY TO Rakan sey UNIT/GM 5-04 WOUND Seybold apply 00:00: EVERY DAY - externally 00 Externa Ointment l Santyl 250 2021-0 Yes APPLY TO Rakan sey UNIT/GM 5-04 WOUND Seybold apply 00:00: EVERY DAY - externally 00 Externa Ointment l Santyl 250 2021-0 Yes APPLY TO Rakan sey UNIT/GM 5-04 WOUND Seybold apply 00:00: EVERY DAY - externally 00 Externa Ointment l Mupirocin Yes [id number] Apply 1 Anai (BACTROBAN) 11-24 applicatio Se ybold 2 % apply 00:00: n externally 00 topically Ointment 2 times daily levoFLOXaci 2021-0 Yes [id number] 500mg Take 1 Anai n 11-2401 tablet Seybold (Levaquin) 00:00: (500 mg 500 MG oral 00 total) by Tablet mouth daily Minocycline 2021-0 Yes [id number] 100mg Take 1 Anai HCl 100 MG 11-2401 capsule Seybol d oral 00:00: (100 mg Capsule 00 total) by mouth in the morning and 1 capsule (100 mg total) in the evening. Mupirocin 2022-0 Yes [id number] Apply 1 Anai (BACTROBAN) 11-24 applicatio Se ybold 2 % apply 00:00: n - externally 00 topically Exte rna Ointment 2 times l daily Minocycline 2022-0 Yes [id number] 100mg Take 1 Anai HCl 100 MG 11-24 capsule Seybol d oral 00:00: (100 mg - Capsule 00 total) by Externa mouth in l the morning and 1 capsule (100 mg total) in the evening. Mupirocin 2-0 Yes [id number] Apply 1 Anai (BACTROBAN) 11-24 applicatio Se ybold 2 % apply 00:00: n - externally 00 topically Exte rna Ointment 2 times l daily Minocycline 2-0 Yes [id number] 100mg Take 1 Anai HCl 100 MG 11-24 capsule Seybol d oral 00:00: (100 mg - Capsule 00 total) by Externa mouth in l the morning and 1 capsule (100 mg total) in the evening. Mupirocin 2-0 Yes [id number] Apply 1 Anai (BACTROBAN) 11-24 applicatio Se ybold 2 % apply 00:00: n - externally 00 topically Exte rna Ointment 2 times l daily Minocycline 2022-0 Yes [id number] 100mg Take 1 Anai HCl 100 MG 11-24 capsule Seybol d oral 00:00: (100 mg - Capsule 00 total) by Externa mouth in l the morning and 1 capsule (100 mg total) in the evening. Mupirocin 2022-0 Yes [id number] Apply 1 Anai (BACTROBAN) 11-24 applicatio Se ybold 2 % apply 00:00: n - externally 00 topically Exte rna Ointment 2 times l daily Minocycline 2022-0 Yes [id number] 100mg Take 1 Anai HCl 100 MG 11-2401 capsule Seybol d oral 00:00: (100 mg - Capsule 00 total) by Externa mouth in l the morning and 1 capsule (100 mg total) in the evening. linaGLIPtin 2022-0 Yes [id number] 1{tbl} Take 1 Anai (Tradjenta) 4-26 tablet by Sey bold 5 MG oral 00:00: mouth Tablet 00 daily Empaglifloz 0 Yes [id number] 1{each} Take 1 Anai in -26 each by Seybold (Jardiance) 00:00: mouth 10 MG oral 00 daily Tablet linaGLIPtin 0 Yes [id number] 1{tbl} Take 1 Anai (Tradjenta) 4-26 tablet by Sey bold 5 MG oral 00:00: mouth - Tablet 00 daily Externa l linaGLIPtin 0 Yes [id number] 1{tbl} Take 1 Anai (Tradjenta) 4-26 tablet by Sey bold 5 MG oral 00:00: mouth - Tablet 00 daily Externa l linaGLIPtin Yes [id number] 1{tbl} Take 1 Anai (Tradjenta) - tablet by Sey bold 5 MG oral 00:00: mouth - Tablet 00 daily Externa l linaGLIPtin 0 3- No [id number] 1{tbl} Take 1 Anai (Tradjenta) 11-21 02-10 tablet by Se ybold 5 MG oral 00:00: 00:00 mouth - Tablet 00 :00 daily Externa l Umeclidiniu 0 Yes [id number] Inhale 1 Anai m Hanson 4-21 inhalation Seyb old (Incruse 08:13: into the Ellipta) 06 lungs 62.5 daily MCG/INH inhalation AEROSOL POWDER, BREATH ACTIVATED Lidocaine 5 Yes Apply 1 Rakan sey % apply - applicatio Seybol d externally 08:13: n Ointment 06 topically as needed Umeclidiniu 2021-0 Yes [id number] Inhale 1 Anai m Hanson 4-21 inhalation Seyb old (Incruse 08:13: into the Ellipta) 06 lungs 62.5 daily MCG/INH inhalation AEROSOL POWDER, BREATH ACTIVATED Lidocaine 5 2021- Yes Apply 1 Rakan sey % apply - applicatio Seybol d externally 08:13: n Ointment 06 topically as needed Empaglifloz 0 Yes [id number] 1{tbl} Take 1 Anai in -21 tablet by Seybold (Jardiance) 00:00: mouth 25 MG oral 00 daily Tablet Cetirizine 2022-0 Yes [id number] 5mg Take 1 K elsey HCl 5 MG 4-21 tablet (5 Seybol d oral Tablet 00:00: mg total) 00 by mouth daily Cetirizine 2022-0 Yes [id number] 5mg Take 1 K elsey HCl 5 MG 4-21 tablet (5 Seybol d oral Tablet 00:00: mg total) 00 by mouth daily Cetirizine 2022-0 Yes [id number] 5mg Take 1 K elsey HCl 5 MG 4-21 tablet (5 Seybol d oral Tablet 00:00: mg total) - 00 by mouth Externa daily l Cetirizine 2022-0 Yes [id number] 5mg Take 1 K elsey HCl 5 MG 4-21 tablet (5 Seybol d oral Tablet 00:00: mg total) - 00 by mouth Externa daily l Cetirizine 2022-0 2022- No [id number] 5mg Take 1 Anai HCl 5 MG 4-21 12-20 tablet (5 Seybo ld oral Tablet 00:00: 00:00 mg total) - 00 :00 by mouth Externa daily l Cephalexin 2022-0 Yes TAKE 1 Kelse y 500 MG oral 4-18 CAPSULE BY Se ybold Capsule 00:00: MOUTH 00 TWICE DAILY FOR 10 DAYS- TAKE ALL Cephalexin 2022-0 Yes TAKE 1 Kelse y 500 MG oral 4-18 CAPSULE BY Se ybold Capsule 00:00: MOUTH 00 TWICE DAILY FOR 10 DAYS- TAKE ALL Acetaminoph 2022-0 Yes 1{tbl} Q.25D Take 1 K elsey en-Codeine 4-11 tablet by Seyb old #3 300-30 00:00: mouth MG oral 00 every 6 Tablet hours as needed FOR PAIN Acetaminoph 2022-0 Yes 1{tbl} Q.25D Take 1 K elsey en-Codeine 4-11 tablet by Seyb old #3 300-30 00:00: mouth MG oral 00 every 6 Tablet hours as needed FOR PAIN Acetaminoph 2022-0 Yes 1{tbl} Q.25D Take 1 K elsey en-Codeine 4-11 tablet by Seyb old #3 300-30 00:00: mouth - MG oral 00 every 6 Externa Tablet hours as l needed FOR PAIN Acetaminoph 0 Yes 1{tbl} Q.25D Take 1 K elsey en-Codeine 4-11 tablet by Seyb old #3 300-30 00:00: mouth - MG oral 00 every 6 Externa Tablet hours as l needed FOR PAIN Acetaminoph 0 Yes 1{tbl} Q.25D Take 1 K elsey en-Codeine 4-11 tablet by Seyb old #3 300-30 00:00: mouth - MG oral 00 every 6 Externa Tablet hours as l needed FOR PAIN Acetaminoph 0 Yes 1{tbl} Q.25D Take 1 K elsey en-Codeine 4-11 tablet by Seyb old #3 300-30 00:00: mouth - MG oral 00 every 6 Externa Tablet hours as l needed FOR PAIN Umeclidiniu Yes [id number] Inhale 1 Anai m Hanson 4-05 inhalation Seyb old (Incruse 09:30: into the Ellipta) 53 lungs 62.5 daily MCG/INH inhalation AEROSOL POWDER, BREATH ACTIVATED Spironolact Yes [id number] 25mg Take 1 Naai one 25 MG 4-05 tablet (25 Seyb old oral Tablet 00:00: mg total) 00 by mouth daily Furosemide Yes 40mg Take 1 Kelse y (Lasix) 40 4-05 tablet (40 Sey bold MG oral 00:00: mg total) Tablet 00 by mouth daily Spironolact 2021-0 Yes [id number] 25mg Take 1 Anai one 25 MG 4-05 tablet (25 Seyb old oral Tablet 00:00: mg total) 00 by mouth daily Furosemide 2021-0 Yes 40mg Take 1 Kelse y (Lasix) 40 4-05 tablet (40 Sey bold MG oral 00:00: mg total) Tablet 00 by mouth daily Spironolact 2021-0 Yes [id number] 25mg Take 1 Anai one 25 MG 4-05 tablet (25 Seyb old oral Tablet 00:00: mg total) - 00 by mouth Externa daily l Spironolact Yes [id number] 25mg Take 1 Anai one 25 MG 4-05 tablet (25 Seyb old oral Tablet 00:00: mg total) 00 by mouth daily Furosemide Yes [id number] 40mg Take 1 K elsey (Lasix) 40 4-05 tablet (40 Sey bold MG oral 00:00: mg total) Tablet 00 by mouth daily Clotrimazol Yes APPLY Kelse y e 1 % apply 3-29 TOPICALLY Sey bold externally 00:00: TO Cream 00 AFFECTED AREA EVERY 12 HOURS Clotrimazol 0 Yes APPLY Kelse y e 1 % apply 3-29 TOPICALLY Sey bold externally 00:00: TO Cream 00 AFFECTED AREA EVERY 12 HOURS Clotrimazol 0 Yes APPLY Kelse y e 1 % apply 3-29 TOPICALLY Sey bold externally 00:00: TO - Cream 00 AFFECTED Externa AREA EVERY l 12 HOURS Clotrimazol 0 Yes APPLY Kelse y e 1 % apply 3-29 TOPICALLY Sey bold externally 00:00: TO - Cream 00 AFFECTED Externa AREA EVERY l 12 HOURS Clotrimazol 0 Yes APPLY Kelse y e 1 % apply 3-29 TOPICALLY Sey bold externally 00:00: TO - Cream 00 AFFECTED Externa AREA EVERY l 12 HOURS Clotrimazol 0 Yes APPLY Kelse y e 1 % apply 3-29 TOPICALLY Sey bold externally 00:00: TO - Cream 00 AFFECTED Externa AREA EVERY l 12 HOURS Clotrimazol 0 Yes APPLY Kelse y e 1 % apply 3-29 TOPICALLY Sey bold externally 00:00: TO Cream 00 AFFECTED AREA EVERY 12 HOURS Spironolact 0 202- No [id number] 12.5mg Take 0.5 Anai one 25 MG 2-28 04-05 tablets Seybol d oral Tablet 00:00: 00:00 (12.5 mg 00 :00 total) by mouth daily Carvedilol 2021- No 25mg Take 25 mg Anai 25 MG oral 2-18 02-18 by mouth 2 Se ybold Tablet 14:30: 00:00 times 25 :00 daily (with meals) Umeclidiniu 0 Yes Inhale 1 Ke lsey m Hanson 2-18 inhalation Seyb old (Incruse 14:18: into the Ellipta) 48 lungs 62.5 daily MCG/INH inhalation AEROSOL POWDER, BREATH ACTIVATED Carvedilol 2021-0 Yes [id number] 25mg Take 1 K elsey 25 MG oral 2-18 tablet (25 Sey bold Tablet 00:00: mg total) 00 by mouth 2 times daily (with meals) Carvedilol 2021-0 Yes [id number] 25mg Take 1 K elsey 25 MG oral 2-18 tablet (25 Sey bold Tablet 00:00: mg total) 00 by mouth 2 times daily (with meals) Carvedilol 2021-0 Yes [id number] 25mg Take 1 K elsey 25 MG oral 2-18 tablet (25 Sey bold Tablet 00:00: mg total) 00 by mouth 2 times daily (with meals) Empaglifloz 2021-0 Yes [id number] 1{tbl} Take 1 Anai in 2-18 tablet by Seybold (Jardiance) 00:00: mouth 10 MG oral 00 daily Tablet Carvedilol 2021-0 Yes [id number] 25mg Take 1 K elsey 25 MG oral 2-18 tablet (25 Sey bold Tablet 00:00: mg total) 00 by mouth 2 times daily (with meals) Empaglifloz 2021-0 Yes [id number] 1{tbl} Take 1 Anai in 2-18 tablet by Seybold (Jardiance) 00:00: mouth 10 MG oral 00 daily Tablet Empaglifloz 2021-0 2021- No [id number] 1{tbl} Take 1 Anai in 2-18 04-21 tablet by Seybold (Jardiance) 00:00: 00:00 mouth 10 MG oral 00 :00 daily Tablet Levothyroxi 2021-0 Yes [id number] 112ug Take 112 Anai ne Sodium 2-15 mcg by Seybold 112 MCG 00:00: mouth oral Tablet 00 every morning ON AN EMPTY STOMACH Metformin 2021-0 Yes [id number] 1000mg Take 1,000 Anai HCl 1000 MG 2-15 mg by Seybold oral Tablet 00:00: mouth 2 00 times daily (with meals) Levothyroxi 2021-0 Yes [id number] 112ug Take 112 Anai ne Sodium 2-15 mcg by Seybold 112 MCG 00:00: mouth oral Tablet 00 every morning ON AN EMPTY STOMACH Metformin 2021-0 Yes [id number] 1000mg Take 1,000 Anai HCl 1000 MG 2-15 mg by Seybold oral Tablet 00:00: mouth 2 00 times daily (with meals) Levothyroxi Yes 112ug Take 112 K elsey ne Sodium 2-15 mcg by Seybold 112 MCG 00:00: mouth oral Tablet 00 every morning ON AN EMPTY STOMACH Metformin Yes 1000mg Take 1,000 Anai HCl 1000 MG 2-15 mg by Seybold oral Tablet 00:00: mouth 2 00 times daily (with meals) Levothyroxi Yes [id number] 112ug Take 112 Anai ne Sodium 2-15 mcg by Seybold 112 MCG 00:00: mouth oral Tablet 00 every morning ON AN EMPTY STOMACH Metformin Yes [id number] 1000mg Take 1,000 Anai HCl 1000 MG 2-15 mg by Seybold oral Tablet 00:00: mouth 2 00 times daily (with meals) Xarelto 20 Yes [id number] TAKE 1 K elsey MG oral 1-21 TABLET BY Seybold Tablet 00:00: MOUTH 00 EVERY DAY WITH EVENING MEAL Xarelto 20 Yes [id number] TAKE 1 K elsey MG oral 1-21 TABLET BY Seybold Tablet 00:00: MOUTH 00 EVERY DAY WITH EVENING MEAL Xarelto 20 Yes [id number] TAKE 1 K elsey MG oral 1-21 TABLET BY Seybold Tablet 00:00: MOUTH - 00 EVERY DAY Externa WITH l EVENING MEAL Xarelto 20 Yes [id number] TAKE 1 K elsey MG oral 1-21 TABLET BY Seybold Tablet 00:00: MOUTH - 00 EVERY DAY Externa WITH l EVENING MEAL Xarelto 20 Yes [id number] TAKE 1 K elsey MG oral 1-21 TABLET BY Seybold Tablet 00:00: MOUTH - 00 EVERY DAY Externa WITH l EVENING MEAL Xarelto 20 Yes TAKE 1 Kelse y MG oral 1-21 TABLET BY Seybold Tablet 00:00: MOUTH 00 EVERY DAY WITH EVENING MEAL Xarelto 20 Yes [id number] TAKE 1 K elsey MG oral 1-21 TABLET BY Seybold Tablet 00:00: MOUTH - 00 EVERY DAY Externa WITH l EVENING MEAL Xarelto 20 Yes [id number] TAKE 1 K elsey MG oral 1-21 TABLET BY Seybold Tablet 00:00: MOUTH 00 EVERY DAY WITH EVENING MEAL glipiZIDE 2021-0 Yes [id number] 10mg Take 10 mg Anai 10 MG oral 1-19 by mouth 2 Sey bold Tablet 00:00: times 00 daily glipiZIDE 2021-0 Yes [id number] 10mg Take 10 mg Anai 10 MG oral 1-19 by mouth 2 Sey bold Tablet 00:00: times 00 daily glipiZIDE 2021-0 Yes 10mg Take 10 mg Ke lsey 10 MG oral 1-19 by mouth 2 Sey bold Tablet 00:00: times 00 daily glipiZIDE 2021-0 Yes [id number] 10mg Take 10 mg Anai 10 MG oral 1-19 by mouth 2 Sey bold Tablet 00:00: times 00 daily Spironolact 2021-0 Yes 25mg Take 25 mg Anai one 25 MG 1-08 by mouth Seybol d oral Tablet 00:00: daily 00 Paroxetine 2021-0 Yes [id number] 20mg Take 20 mg Anai HCl 20 MG 1-05 by mouth Seybol d oral Tablet 00:00: every 00 morning Paroxetine 2021-0 Yes [id number] 20mg Take 20 mg Anai HCl 20 MG 1-05 by mouth Seybol d oral Tablet 00:00: every 00 morning Paroxetine 2-0 Yes 20mg Take 20 mg K elsey HCl 20 MG 1-05 by mouth Seybol d oral Tablet 00:00: every 00 morning Paroxetine 2-0 Yes [id number] 20mg Take 20 mg Anai HCl 20 MG 1-05 by mouth Seybol d oral Tablet 00:00: every 00 morning Jardiance 2020-1 2022- No 1{tbl} Take 1 Rakan sey 10 MG oral 2-29 02-18 tablet by Sey bold Tablet 00:00: 00:00 mouth 00 :00 daily Omeprazole 2020-1 Yes [id number] 20mg Take 20 mg Anai 20 MG oral 2-24 by mouth Seybo ld Delayed 00:00: daily Release 00 Capsule Omeprazole 2020-1 Yes [id number] 20mg Take 20 mg Anai 20 MG oral 2-24 by mouth Seybo ld Delayed 00:00: daily Release 00 Capsule Omeprazole 2020-1 Yes 20mg Take 20 mg K elsey 20 MG oral 2-24 by mouth Seybo ld Delayed 00:00: daily Release 00 Capsule Omeprazole 2020-07 Yes [id number] 20mg Take 20 mg Anai 20 MG oral 2-24 by mouth Seybo ld Delayed 00:00: daily Release 00 Capsule Immunizations Ordered Immunization Filled Immunization Date Status Commen ts Source Name Name Influenza Virus 2022-04-26 Completed Anai Crowder ybold Vaccine, 00:00:00 - External Quadrivalent, High Dose, Age 65 And Up Tdap- (Boostrix, 2022-04-26 Completed Anai S eybold Adacel) 00:00:00 - External Influenza Virus 2022-04-26 Completed Anai Se ybold Vaccine, 00:00:00 - External Quadrivalent, High Dose, Age 65 And Up Tdap- (Boostrix, 2022-04-26 Completed Anai S eybold Adacel) 00:00:00 - External Influenza Virus 2022-04-26 Completed Anai Se ybold Vaccine, 00:00:00 - External Quadrivalent, High Dose, Age 65 And Up Tdap- (Boostrix, 2022-04-26 Completed Anai S eybold Adacel) 00:00:00 - External Influenza Virus 2022-04-26 Completed Anai Se ybold Vaccine, 00:00:00 - External Quadrivalent, High Dose, Age 65 And Up Tdap- (Boostrix, 2022-04-26 Completed Anai S eybold Adacel) 00:00:00 - External Influenza Virus 2021-02-26 Completed Anai Se ybold Vaccine, High Dose, 00:00:00 Age 65 And Up Shingles IM 2021-02-26 Completed Anai Crowderybol d (Shingrix) 00:00:00 Influenza Virus 2021-02-26 Completed Anai Se ybold Vaccine, High Dose, 00:00:00 Age 65 And Up Shingles IM 2021-02-26 Completed Anai Seybol d (Shingrix) 00:00:00 Influenza Virus 2021-02-26 Completed Anai Crowder ybold Vaccine, High Dose, 00:00:00 - Ext ernal Age 65 And Up Shingles IM 2021-02-26 Completed Anai Seybol d (Shingrix) 00:00:00 - External Influenza Virus 2021-02-26 Completed Anai harperold Vaccine, High Dose, 00:00:00 - Ext ernal Age 65 And Up Shingles IM 2021-02-26 Completed Anai Romeool d (Shingrix) 00:00:00 - External Influenza Virus 2021-02-26 Completed Anai Se saleemold Vaccine, High Dose, 00:00:00 - Ext ernal Age 65 And Up Shingles IM 2021-02-26 Completed Anai Romeool d (Shingrix) 00:00:00 - External Influenza Virus 2021-02-26 Completed Anai harperold Vaccine, High Dose, 00:00:00 - Ext ernal Age 65 And Up Shingles IM 2021-02-26 Completed Anai Romeool d (Shingrix) 00:00:00 - External Influenza Virus 2021-02-26 Completed Anai harperold Vaccine, High Dose, 00:00:00 Age 65 And Up Shingles IM 2021-02-26 Completed Anai Romeool d (Shingrix) 00:00:00 Influenza Virus 2021-02-26 Completed Anai harperold Vaccine, High Dose, 00:00:00 Age 65 And Up Shingles IM 2021-02-26 Completed Anai Romeool d (Shingrix) 00:00:00 Hep A/ Hep B Combo 2020-08-01 Completed Anai Seybold 00:00:00 - External Hep A/ Hep B Combo 2020-08-01 Completed Anai Seybold 00:00:00 - External Hep A/ Hep B Combo 2020-08-01 Completed Anai Seybold 00:00:00 - External Hep A/ Hep B Combo 2020-08-01 Completed Anai Seybold 00:00:00 - External Shingles IM 2020-05-03 Completed Anai Crowderybol d (Shingrix) 00:00:00 - External Shingles IM 2020-05-03 Completed Anai Crowderybol d (Shingrix) 00:00:00 - External Shingles IM 2020-05-03 Completed Anai Crowderybol d (Shingrix) 00:00:00 - External Shingles IM 2020-05-03 Completed Anai Seybol d (Shingrix) 00:00:00 - External Hep A/ Hep B Combo 2020-03-01 Completed Anai Seybold 00:00:00 - External Hep A/ Hep B Combo 2020-03-01 Completed Anai Seybold 00:00:00 - External Hep A/ Hep B Combo 2020-03-01 Completed Anai Seybold 00:00:00 - External Hep A/ Hep B Combo 2020-03-01 Completed Anai Seybold 00:00:00 - External Shingles IM 2020-02-19 Completed Anai Crowderybol d (Shingrix) 00:00:00 - External Shingles IM 2020-02-19 Completed Anai Crowderybol d (Shingrix) 00:00:00 - External Shingles IM 2020-02-19 Completed Anai Crowderybol d (Shingrix) 00:00:00 - External Shingles IM 2020-02-19 Completed Anai Crowderybol d (Shingrix) 00:00:00 - External Pneumococcal 2020-01-30 Completed Anai Ortiz ld Vaccine, Conjugate 00:00:00 - Exte rnal 13 Hep A/ Hep B Combo 2020-01-30 Completed Anai Crowderybold 00:00:00 - External Pneumococcal 2020-01-30 Completed Anai Ortiz ld Vaccine, Conjugate 00:00:00 - Exte rnal 13 Hep A/ Hep B Combo 2020-01-30 Completed Anai Crowderybold 00:00:00 - External Pneumococcal 2020-01-30 Completed Anai Ortiz ld Vaccine, Conjugate 00:00:00 - Exte rnal 13 Hep A/ Hep B Combo 2020-01-30 Completed Anai Seybold 00:00:00 - External Pneumococcal 2020-01-30 Completed Anai Romeoo ld Vaccine, Conjugate 00:00:00 - Exte rnal 13 Hep A/ Hep B Combo 2020-01-30 Completed Anai Crowderybold 00:00:00 - External Vital Signs Vital Name Observation Time Observation Value Comments Source Systolic blood 2022-09-07 19:35:00 140 mm[Hg] Anai Crowderybold - pressure External Diastolic blood 2022-09-07 19:35:00 76 mm[Hg] Elda Romeoold - pressure External Heart rate 2022-09-07 19:35:00 130 /min Anai S eybold - External Body temperature 2022-09-07 19:35:00 36 Tiki Samia ey Seybold - External Respiratory rate 2022-09-07 19:35:00 15 /min Samia ey Seybold - External Body height 2022-09-07 19:35:00 167.6 cm Anai S eybold - External Body weight 2022-09-07 19:35:00 95.709 kg Anai S eybold - External BMI 2022-09-07 19:35:00 34.06 kg/m2 Anai S eybold - External Systolic blood 2022-07-17 13:57:00 152 mm[Hg] Anai Seybold - pressure External Diastolic blood 2022-07-17 13:57:00 76 mm[Hg] Rakanse y Seybold - pressure External Heart rate 2022-07-17 13:57:00 84 /min Anai Trivedi eybold - External Body temperature 2022-07-17 13:57:00 36.28 Tiki Samia ey Seybold - External Respiratory rate 2022-07-17 13:57:00 14 /min Samia farley Seybold - External Body height 2022-07-17 13:57:00 167.6 cm Anai Trivedi eybold - External Body weight 2022-07-17 13:57:00 95.255 kg Anai Trivedi eybold - External BMI 2022-07-17 13:57:00 33.89 kg/m2 Anai Trivedi eybold - External Oxygen saturation in 2022-07-17 13:57:00 99 /min Anai Seybold - Arterial blood by External Pulse oximetry Systolic blood 2022-04-26 13:55:00 136 mm[Hg] Anai Seybold - pressure External Diastolic blood 2022-04-26 13:55:00 74 mm[Hg] Kelse y Seybold - pressure External Heart rate 2022-04-26 13:55:00 83 /min Anai S eybold - External Body temperature 2022-04-26 13:55:00 36.89 Tiki Samia ey Seybold - External Respiratory rate 2022-04-26 13:55:00 20 /min Samia ey Seybold - External Body height 2022-04-26 13:55:00 167.6 cm Anai S eybold - External Body weight 2022-04-26 13:55:00 95.255 kg Anai S eybold - External BMI 2022-04-26 13:55:00 33.89 kg/m2 Anai S eybold - External Oxygen saturation in 2022-04-26 13:55:00 98 /min Anai Seybold - Arterial blood by External Pulse oximetry Systolic blood 2021-11-24 18:18:00 121 mm[Hg] Anai Seybold pressure Diastolic blood 2021-11-24 18:18:00 69 mm[Hg] Kelse y Seybold pressure Heart rate 2021-11-24 18:18:00 64 /min Anai S eybold Body temperature 2021-11-24 18:18:00 36.56 Tiki Samia ey Seybold Respiratory rate 2021-11-24 18:18:00 14 /min Samia ey Seybold Body height 2021-11-24 18:18:00 167.6 cm Anai S eybold Body weight 2021-11-24 18:18:00 88.451 kg Anai S eybold BMI 2021-11-24 18:18:00 31.47 kg/m2 Anai S eybold Systolic blood 2021-11-16 13:06:00 128 mm[Hg] Anai Seybold pressure Diastolic blood 2021-11-16 13:06:00 70 mm[Hg] Kelse y Seybold pressure Heart rate 2021-11-16 13:06:00 63 /min Anai S eybold Body temperature 2021-11-16 13:06:00 36 Tiki Samia ey Seybold Respiratory rate 2021-11-16 13:06:00 15 /min Samia ey Seybold Body height 2021-11-16 13:06:00 167.6 cm Anai S eybold Body weight 2021-11-16 13:06:00 89.812 kg Anai S eybold BMI 2021-11-16 13:06:00 31.96 kg/m2 Anai S eybold Systolic blood 2021-10-31 14:25:00 118 mm[Hg] Anai Seybold pressure Diastolic blood 2021-10-31 14:25:00 60 mm[Hg] Kelse y Seybold pressure Heart rate 2021-10-31 14:25:00 64 /min Anai Trivedi eybold Body temperature 2021-10-31 14:25:00 35.67 Tiki Samia ey Seybold Respiratory rate 2021-10-31 14:25:00 16 /min Samia ey Seybold Body height 2021-10-31 14:25:00 167.6 cm Anai S eybold Body weight 2021-10-31 14:25:00 92.08 kg Anai S eybold BMI 2021-10-31 14:25:00 32.77 kg/m2 Anai S eybold Systolic blood 2021-09-15 19:47:00 103 mm[Hg] Anai Seybold pressure Diastolic blood 2021-09-15 19:47:00 67 mm[Hg] Kelse y Seybold pressure Heart rate 2021-09-15 19:47:00 88 /min Anai Trivedi eybold Body temperature 2021-09-15 19:47:00 36.44 Tiki Samia ey Seybold Respiratory rate 2021-09-15 19:47:00 15 /min Samia ey Seybold Body height 2021-09-15 19:47:00 167.6 cm Anai Trivedi eybold Body weight 2021-09-15 19:47:00 91.627 kg Anai Trivedi eybold BMI 2021-09-15 19:47:00 32.60 kg/m2 Anai farleyboshonda Procedures This patient has no known procedures. Encounters Start End Encounter Admission Attending Care Care Encounter Source Date/Time Date/Time Type Type Clinicians Facility Department ID 2022-10-18 2022-10-18 Outpatient ANAI ABREU [id number] Anai 09:15:00 09:15:00 HALLIE Seybol d 2022-09-21 2022-09-21 Outpatient ANAI MARIE [id number] Anai 11:00:00 11:00:00 BECCA Seybol d 2022-09-14 2022-09-14 Outpatient ANAI MORGAN [id number] Anai 07:30:00 07:30:00 Seybol d 2022-09-08 2022-09-08 Outpatient PREZAS, ANAI MORGAN [id number] Anai 00:00:00 00:00:00 BECCA Seybol d 2022-09-07 2022-09-07 Outpatient LAB90 ANAI MORGAN [id number] Anai 14:20:00 14:20:00 Seybol d 2022-09-07 2022-09-07 Outpatient PREZAS, ANAI MORGAN [id number] Anai 13:45:00 13:45:00 BECCA Seybol d 2022-08-14 2022-08-14 Outpatient PREZAS, ANAI MORGAN [id number] Anai 00:00:00 00:00:00 BECCA Seybol d 2022-08-03 2022-08-03 Outpatient PREZAS, ANAI MORGAN [id number] Ania 00:00:00 00:00:00 BECCA Seybol d 2022-07-26 2022-07-26 Outpatient PREZAS, ANAI MORGAN [id number] Anai 08:30:00 08:30:00 BECCA Seybol d 2022-07-17 2022-07-17 Outpatient PREZAS, ANAI MORGAN [id number] Anai 08:00:00 08:00:00 BECCA Seybol d 2022-06-27 2022-06-27 Outpatient LAB90 ANAI MORGAN [id number] Anai 08:30:00 08:30:00 Seybol d 2022-06-26 2022-06-26 Outpatient PREZAS, ANAI MORGAN [id number] Anai 09:00:00 09:00:00 BECCA Seybol d 2022-04-26 2022-04-26 Outpatient PREZAS, ANAI MORGAN [id number] Anai 09:15:00 09:15:00 BECCA Seybol d 2022-04-26 2022-04-26 Outpatient PREZAS, ANAI MORGAN [id number] Anai 08:15:00 08:15:00 BECCA Seybol d 2022-04-09 2022-04-09 Outpatient PREZAS, ANAI MORGAN [id number] Anai 00:00:00 00:00:00 BECCA Seybol d 2022-04-05 2022-04-05 Outpatient PREZAS, ANAI MORGAN [id number] Anai 00:00:00 00:00:00 BECCA Seybol d 2022-04-04 2022-04-04 Outpatient LAB90 ANAI MORGAN [id number] Anai 10:45:00 10:45:00 Seybol d 2022-04-04 2022-04-04 Office PreJorge elmore [id number] Anai 10:15:00 10:30:00 Visit Becca Boyd [id number] Se ybold [id number] 2022-03-30 2022-03-30 Outpatient PREZANataly, ANAI MORGAN [id number] Anai 00:00:00 00:00:00 BECCA Seybol d 2022-03-07 2022-03-07 Office NighatJorge trivedi [id number] Anai 11:30:00 12:00:00 Visit Becca Boyd [id number] Se ybold [id number] 2022-03-07 2022-03-07 Outpatient PREZAS, ANAI MORGAN [id number] Anai 00:00:00 00:00:00 BECCA Seybol d 2022-02-23 2022-02-23 Outpatient LAB90 ANAI MORGAN [id number] Anai 08:30:00 08:30:00 Seybol d 2022-02-23 2022-02-23 Outpatient PREZAS, ANAI MORGAN [id number] Anai 00:00:00 00:00:00 BECCA Seybol d 2022-02-05 2022-02-05 Outpatient PREZASANAI [id number] Anai 00:00:00 00:00:00 BECCA Seybol d 2022-02-02 2022-02-02 Outpatient PREZAS, ANAI MORGAN [id number] Anai 00:00:00 00:00:00 BECCA Seybol d 2022-02-01 2022-02-01 Outpatient PREZAS, ANAI MORGAN [id number] Anai 00:00:00 00:00:00 BECCA Seybol d 2022-01-25 2022-01-25 Outpatient PREZAS, ANAI MORGAN [id number] Anai 00:00:00 00:00:00 BECCA Seybol d 2022-01-25 2022-01-25 Outpatient PREZAS, ANAI MORGAN [id number] Anai 00:00:00 00:00:00 BECCA Seybol d 2022-01-24 2022-01-24 Office PrezasJorge [id number] Anai 09:00:00 09:30:00 Visit Becca Boyd [id number] Se ybold [id number] 2022-01-19 2022-01-19 Outpatient PREZAS, ANAI MORGAN [id number] Anai 08:30:00 08:30:00 BECCA Seybol d 2021-12-20 2021-12-20 Outpatient PREZAS, ANAI MORGAN [id number] Anai 00:00:00 00:00:00 BECCA Seybol d 2021-12-14 2021-12-14 Outpatient PREZAS, ANAI MORGAN [id number] Anai 00:00:00 00:00:00 BECAC Seybol d 2021-12-08 2021-12-08 Outpatient PREZAS, ANAI MORGAN [id number] Anai 08:00:00 08:00:00 BECCA Seybol d 2021-11-29 2021-11-29 Outpatient PREZAS, ANAI MORGAN [id number] Anai 00:00:00 00:00:00 BECCA Seybol d 2021-11-24 2021-11-24 Office PREZAJorge Trivedi [id number] Anai 13:30:00 13:30:00 Visit BECCA Boyd [id number] Se ybold [id number] 2021-11-24 2021-11-24 Outpatient PREZASANAI [id number] Anai 09:00:00 09:00:00 BECCA Seybol d 2021-11-21 2021-11-21 Outpatient BRAD ANAI MORGAN [id number] Anai 00:00:00 00:00:00 BECCA Seybol d 2021-11-20 2021-11-20 Outpatient BRAD ANAI MORGAN [id number] Anai 00:00:00 00:00:00 BECCA Seybol d 2021-11-20 2021-11-20 Outpatient MENDIETAANAI [id number] Anai 00:00:00 00:00:00 AVA Seybol d 2021-11-16 2021-11-16 Office Jorge Marie [id number] Anai 08:00:00 08:15:00 Visit Becca Boyd [id number] Se ybold [id number] 2021-11-15 2021-11-15 Outpatient BRAD ANAI MORGAN [id number] Anai 00:00:00 00:00:00 BECCA Seybol d 2021-10-31 2021-10-31 Outpatient LAB90 ANAI MORGAN [id number] Anai 10:15:00 10:15:00 Seybol d 2021-10-31 2021-10-31 Office Jorge Marie [id number] Anai 09:45:00 10:00:00 Visit Becca Boyd [id number] Se ybold [id number] 2021-10-30 2021-10-30 Outpatient BRAD ANAI MORGAN [id number] Anai 00:00:00 00:00:00 BECCA Seybol d 2021-09-25 2021-09-25 Outpatient BRAD ANAI MORGAN [id number] Anai 00:00:00 00:00:00 BECCA Seybol d 2021-09-22 2021-09-22 Outpatient LAB90 ANAI MORGAN [id number] Anai 08:10:00 08:10:00 Seybol d 2021-09-20 2021-09-20 Outpatient ANAI MARIE [id number] Anai 00:00:00 00:00:00 BECCA Seybol d 2021-09-18 2021-09-18 Outpatient ANAI MARIE [id number] Anai 00:00:00 00:00:00 BECCA Seybol d 2021-09-18 2021-09-18 Outpatient ANAI MARIE [id number] Anai 00:00:00 00:00:00 BECCA Seybol d 2021-09-15 2021-09-15 Office Jorge Marie [id number] Anai 14:45:00 15:30:00 Visit Becca Boyd [id number] Se puente [id number] Results This patient has no known results.
[2022-09-13 08:10] LABS: Absolute Lymphocytes (CBC) 2.7 K/uL (0.7-4.9); Hematocrit 40.8 % (39.6-49.0); MCV 90.2 fL (80-100); MPV 7.7 fL (7.6-11.3); RBC Red Blood Cell Count 4.52 M/uL (4.33-5.43)
[2022-09-13 08:15] LABS: Protime INR 1.26
[2022-09-13 08:29] LABS: Albumin 3.4 g/dL (3.4-5.0); Bilirubin Direct 0.2 mg/dL (0-0.2); Bilirubin Total 0.6 mg/dL (0.2-1.0); Potassium 4.6 mmol/L (3.5-5.1); Protein, Total 7.9 g/dL (6.4-8.2); Troponin High Sensitivity 19.8 pg/mL (<58.9)
--- NOTE | 2022-09-13 08:56 | RAD REPORT ---
EXAM DESCRIPTION: CTAbdomen Pelvis W Contrast - 09/13/2022 8:40 am CLINICAL HISTORY: Abdominal pain. ABD PAIN COMPARISON: Abdomen Pelvis W Contrast dated 02/26/2022; Abdomen Pelvis W Contrast dated 10/28/2021; Abdomen Pelvis W Contrast dated 08/02/2019; Abdomen Pelvis W Contrast dated 05/21/2017; Chest Abdom en Pelvis W Cont dated 08/24/2022 TECHNIQUE: Biphasic CT imaging of the abdomen and pelvis was performed with 100 ml non-ionic IV cont rast. All CT scans are performed using dose optimization technique as appropriate and may include automated exposure control or mA/KV adjustment according to patient size. FINDINGS: Mild linear atelectasis both lung bases.Cardiomegaly partially visualized. Mild fatty liver. Slight nodular contour to right hepatic lobe suggests mild cirrhosis is present. No liver masses. No intra or extrahepatic biliary tree dilatation. The spleen, adrenal glands and kidne ys are within normal limits. Mild pancreatic atrophy. No bowel obstruction, free air, free fluid or abscess. The appendix is mildly prominent but similar in appearance to prior studies. Diverticulosis of the sigmoid colon is seen with 6 cm length of wall thickening present No evidence of significant lymphadenopathy. Prostate gland is enlarged and project s into the bladder base. Moderate lumbar degenerative changes. Moderate T12 compression fracture, appearing chronic. IMPRESSION: Focal area of wall thickening with significant diverticulosis seen involving 6 cm length of sigmoid colon in the lower aspect of the abdomen. Diverticulitis versus mass is the primary consi derations. Follow-up colonoscopy would be advised. Prominent appearance to the appendix is similar to prior study acute appendicitis is felt to be unlik luna. Mild/early liver cirrhosis. Cardiomegaly. Prostatomegaly with projection into the bladder base.
--- NOTE | 2022-09-13 09:10 | RAD REPORT ---
EXAM DESCRIPTION: RAD - Chest Single View - 09/13/2022 8:14 am CLINICAL HISTORY: DYSPNEA Chest pain. COMPARISON: Chest Single View dated 02/26/2022; Chest Single View dated 10/28/2021; Chest Single View da rick 08/02/2019; Chest Single View dated 09/07/2018 FINDINGS: Portable technique limits examination quality. Mild pulmonary edema. The heart is moderately enlarged. No displaced fractures. IMPRESSION: Mild CHF.
--- NOTE | 2022-09-13 10:11 | EDPHYS ---
Physician Documentation [facility] Name: Juan Nelson Age: 77 yrs Sex: Male : 1945 Arrival Date: 09/13/2022 Time: 07:35 Bed 8 Private MD: ED Physician Omari Gandhi HPI: 09/13 08:12 This 77 yrs old Male presents to ER via Wheelchair with complaints of sp3 Abdominal Pain, Breathing Difficulty, Trouble Walking. 08:12 77-year-old male with a history of diabetes, liver cirrhosis with ascites, sp3 hypertension, hypothyroidism presents to the ED with chief complaint abdominal distention, right upper quadrant abdominal pain, and difficulty breathing. In the past his fluid overload has been diuresed with Lasix and he has not required paracentesis. He is also had a cholecystectomy in the past. On review of systems, he denies fever, URI symptoms, neck pain, chest pain, back pain, lower abdominal pain, nausea, vomiting, diarrhea, rash, bleeding, melena, any other new signs or symptoms at this time.. Historical: - Allergies: 07:46 No Known Allergies; ss - Home Meds: 07:46 glipizide 10 mg Oral tab 1 tab 2 times per day [Active]; omeprazole 20 mg Oral cpDR 1 ss cap once daily [Active]; levothyroxine 112 mcg cap 1 cap once daily [Active]; spironolactone 25 mg Oral tab 1 tab once daily [Active]; Xarelto 20 mg oral tab 1 tab once daily [Active]; glipizide 10 mg Oral tab 1 tab 2 times per day [Active]; metformin 1,000 mg Oral tab 1 tab 2 times per day [Active]; furosemide 40 mg Oral tab 1 tab once daily [Active]; carvedilol 25 mg Oral tab 1 tab 2 times per day [Active]; atorvastatin 10 mg Oral tab 1 tab once daily [Active]; pantoprazole 40 mg oral TbEC 1 tab once daily [Active]; citalopram 10 mg tab 1 tab once daily [Active]; Xarelto 20 mg Oral tab 1 tab once daily [Active]; - PMHx: 07:46 COPD; Diabetes - NIDDM; Hypothyroidism; Ascites; Hypertensive disorder; ss - Immunization history:: Adult Immunizations up to date. - Social history:: Smoking status: unknown. ROS: 08:13 Constitutional: Negative for fever, chills, and weight loss, Eyes: Negative for injury, sp3 pain, redness, and discharge, ENT: Negative for injury, pain, and discharge, Neck: Negative for injury, pain, and swelling, Cardiovascular: Negative for chest pain, palpitations, and edema, Back: Negative for injury and pain, MS/Extremity: Negative for injury and deformity, Skin: Negative for injury, rash, and discoloration, Neuro: Negative for headache, weakness, numbness, tingling, and seizure, Psych: Negative for depression, anxiety, suicide ideation, homicidal ideation, and hallucinations, Allergy/Immunology: Negative for hives, rash, and allergies. 08:13 All other systems are negative. Exam: 08:13 Constitutional: This is a well developed, well nourished patient who is awake, alert, sp3 and in no acute distress. Head/Face: Normocephalic, atraumatic. Eyes: Pupils equal round and reactive to light, extra-ocular motions intact. Lids and lashes normal. Conjunctiva and sclera are non-icteric and not injected. Cornea within normal limits. Periorbital areas with no swelling, redness, or edema. ENT: Nares patent. No nasal discharge, no septal abnormalities noted. External auditory canals are clear. Oropharynx with no redness, swelling, or masses, exudates, or evidence of obstruction, uvula midline. Mucous membranes moist. Neck: Trachea midline, no thyromegaly or masses palpated, and no cervical lymphadenopathy. Supple, full range of motion without nuchal rigidity, or vertebral point tenderness. No Meningismus. Chest/axilla: Normal chest wall appearance and motion. Nontender with no deformity. No lesions are appreciated. Cardiovascular: Regular rate and rhythm with a normal S1 and S2. No gallops, murmurs, or rubs. Normal PMI, no JVD. No pulse deficits. Back: No spinal tenderness. No costovertebral tenderness. Full range of motion. Skin: Warm, dry with normal turgor. Normal color with no rashes, no lesions, and no evidence of cellulitis. MS/ Extremity: Pulses equal, no cyanosis. Neurovascular intact. Full, normal range of motion. Neuro: Awake and alert, GCS 15, oriented to person, place, time, and situation. Cranial nerves II-XII grossly intact. Motor strength 5/5 in all extremities. Sensory grossly intact. Cerebellar exam normal. Normal gait. Psych: Awake, alert, with orientation to person, place and time. Behavior, mood, and affect are within normal limits. 08:13 Respiratory: Mild Rales bilateral bases.. 08:13 Abdomen/GI: Distended abdomen with ascites and fluid wave. Right-sided pain on palpation without peritoneal signs.. 08:15 ECG was reviewed by the Attending Physician. EKG demonstrates atrial fibrillation with sp3 left bundle branch block at a rate of 71 bpm. EKG is consistent with old EKG dated 08/24/22. Vital Signs: 07:44 BP 154 / 101; Pulse 90; Resp 26; Temp 97.6(O); Pulse Ox 97% on R/A; Weight 92.99 kg; ss Height 5 ft. 6 in. (167.64 cm); Pain 10/10; 09:43 BP 111 / 72; Pulse 67; Resp 19; Pulse Ox 95% ; bp 10:52 BP 146 / 70; Pulse 76; Resp 21; Pulse Ox 97% ; bp 07:44 Body Mass Index 33.09 (92.99 kg, 167.64 cm) ss MDM: 07:57 Patient medically screened. sp3 08:14 Data reviewed: vital signs, nurses notes, EKG. sp3 10:08 ED course: Patient scans reviewed. Patient has no left lower quadrant abdominal pain sp3 and this will just be followed up with the GI specialist he has regarding the swelling of the sigmoid colon found on CT. If CT is negative. Laboratory values are all normal with exception of BNP at 1000. Patient has normal pulse oxygenation on room air. We will give 40 of Lasix IV along with some morphine and Zofran and discharge patient home. Patient has follow-up tomorrow with his PCP.. 09/13 07:43 Order name: Basic Metabolic Panel; Complete Time: 09:57 sp3 09/13 07:43 Order name: CBC with Diff; Complete Time: 09:57 sp3 09/13 07:43 Order name: LFT's; Complete Time: 09:57 sp3 09/13 07:43 Order name: Magnesium; Complete Time: 09:57 sp3 09/13 07:43 Order name: NT PRO-BNP; Complete Time: 09:57 sp3 09/13 07:43 Order name: PT-INR; Complete Time: 09:57 sp3 09/13 07:43 Order name: Troponin HS; Complete Time: 09:57 sp3 09/13 07:43 Order name: XRAY Chest (1 view); Complete Time: 09:57 sp3 09/13 07:43 Order name: CT Abd/Pelvis - IV Contrast Only; Complete Time: 09:57 sp3 09/13 07:43 Order name: EKG; Complete Time: 07:44 sp3 09/13 07:43 Order name: Cardiac monitoring; Complete Time: 08:00 sp3 09/13 07:43 Order name: EKG - Nurse/Tech; Complete Time: 08:00 sp3 09/13 07:43 Order name: IV Saline Lock; Complete Time: 08:29 sp3 09/13 07:43 Order name: Labs collected and sent; Complete Time: 08:29 sp3 09/13 07:43 Order name: O2 Per Protocol; Complete Time: 08:00 sp3 09/13 07:43 Order name: O2 Sat Monitoring; Complete Time: 08:00 sp3 Administered Medications: 08:53 CANCELLED (Duplicate Order): morphine 4 mg IVP once over 4 mins sp3 08:53 CANCELLED (Duplicate Order): Zofran (Ondansetron) 4 mg IVP once; over 2 minutes sp3 10:15 Drug: Lasix (furosemide) 40 mg Route: IVP; Site: left antecubital; bp 10:52 Follow up: Response: No adverse reaction bp 10:15 Drug: morphine 4 mg Route: IVP; Infused Over: 4 mins; Site: left antecubital; bp 10:52 Follow up: Response: No adverse reaction bp 10:15 Drug: Zofran (Ondansetron) 4 mg Route: IVP; Site: left antecubital; bp 10:52 Follow up: Response: No adverse reaction bp Disposition Summary: 09/13/22 10:10 Discharge Ordered Location: Home sp3 Condition: Stable sp3 Diagnosis - CHF, Ascites sp3 Followup: sp3 - With: Private Physician - When: Upon discharge from the Emergency Department - Reason: Continuance of care Discharge Instructions: - Discharge Summary Sheet sp3 - Ascites sp3 - Heart Failure, Diagnosis, [id number] sp3 Forms: - Medication Reconciliation Form sp3 - Thank You Letter sp3 - Antibiotic Education sp3 - Prescription Opioid Use sp3 Signatures: Dispatcher [employer] Glo Arias RN RN ss Venancio Matias RN RN bp Omari Gandhi MD MD sp3 Corrections: (The following items were deleted from the chart) 08:53 08:51 morphine 4 mg IVP once over 4 mins ordered. sp3 sp3 08:53 08:51 Zofran (Ondansetron) 4 mg IVP once; over 2 minutes ordered. sp3 sp3 08:53 08:51 Splint ordered. sp3 sp3 08:53 08:51 Sling ordered. sp3 sp3
--- NOTE | 2022-09-13 10:11 | ER ---
Nurse's Notes [facility] Name: Juan Nelson Age: 77 yrs Sex: Male : 1945 Arrival Date: 09/13/2022 Time: 07:35 Bed 8 Private MD: Diagnosis: CHF, Ascites Presentation: 09/13 07:44 Chief complaint: Patient states: abd pain and productive cough that began 2 weeks ago. ss Difficulty breathing since Saturday. Denies fever. HX of ascites. Coronavirus screen: Client denies travel out of the [place] in the last 14 days. Ebola Screen: Patient denies exposure to infectious person. Patient denies travel to an Ebola-affected area in the 21 days before illness onset. Initial Sepsis Screen: Does the patient meet any 2 criteria? No. Patient's initial sepsis screen is negative. Does the patient have a suspected source of infection? No. Patient's initial sepsis screen is negative. Risk Assessment: Do you want to hurt yourself or someone else? Patient reports no desire to harm self or others. Onset of symptoms was August 30, 2022. 07:44 Method Of Arrival: Wheelchair ss 07:44 Acuity: KRISTEL 2 ss Triage Assessment: 07:45 General: Appears in no apparent distress. uncomfortable, obese, Behavior is bp cooperative, appropriate for age, anxious. Pain: Complains of pain in abdomen. EENT: No deficits noted. Neuro: No deficits noted. Cardiovascular: No deficits noted. Respiratory: Reports shortness of breath. GI: Abdomen is noted to have ascites. : No signs and/or symptoms were reported regarding the genitourinary system. Derm: No deficits noted. Musculoskeletal: No deficits noted. Historical: - Allergies: 07:46 No Known Allergies; ss - Home Meds: 07:46 glipizide 10 mg Oral tab 1 tab 2 times per day [Active]; omeprazole 20 mg Oral cpDR 1 ss cap once daily [Active]; levothyroxine 112 mcg cap 1 cap once daily [Active]; spironolactone 25 mg Oral tab 1 tab once daily [Active]; Xarelto 20 mg oral tab 1 tab once daily [Active]; glipizide 10 mg Oral tab 1 tab 2 times per day [Active]; metformin 1,000 mg Oral tab 1 tab 2 times per day [Active]; furosemide 40 mg Oral tab 1 tab once daily [Active]; carvedilol 25 mg Oral tab 1 tab 2 times per day [Active]; atorvastatin 10 mg Oral tab 1 tab once daily [Active]; pantoprazole 40 mg oral TbEC 1 tab once daily [Active]; citalopram 10 mg tab 1 tab once daily [Active]; Xarelto 20 mg Oral tab 1 tab once daily [Active]; - PMHx: 07:46 COPD; Diabetes - NIDDM; Hypothyroidism; Ascites; Hypertensive disorder; ss - Immunization history:: Adult Immunizations up to date. - Social history:: Smoking status: unknown. Screenin:45 [facility] ED Fall Risk Assessment (Adult) History of falling in the last 3 months, bp including since admission No falls in past 3 months (0 pts). Abuse screen: Denies threats or abuse. Denies injuries from another. Nutritional screening: No deficits noted. Tuberculosis screening: No symptoms or risk factors identified. Assessment: 07:45 General: SEE TRIAGE NOTE. bp 09:44 Reassessment: No changes from previously documented assessment. Patient and/or family bp updated on plan of care and expected duration. Pain level reassessed. 10:53 Reassessment: PT DC HOME AMBULATORY WITH FAMILY. bp Vital Signs: 07:44 BP 154 / 101; Pulse 90; Resp 26; Temp 97.6(O); Pulse Ox 97% on R/A; Weight 92.99 kg; ss Height 5 ft. 6 in. (167.64 cm); Pain 10/10; 09:43 BP 111 / 72; Pulse 67; Resp 19; Pulse Ox 95% ; bp 10:52 BP 146 / 70; Pulse 76; Resp 21; Pulse Ox 97% ; bp 07:44 Body Mass Index 33.09 (92.99 kg, 167.64 cm) ED Course: 07:35 Patient arrived in ED. rg4 07:36 Venancio Matias, MELVIN is Primary Nurse. bp 07:38 Omari Gandhi MD is Attending Physician. sp3 07:45 Patient has correct armband on for positive identification. Bed in low position. Call bp light in reach. Side rails up X2. Adult w/ patient. 07:46 Triage completed. ss 07:46 Arm band placed on right wrist. ss 08:03 Inserted saline lock: 20 gauge in left antecubital area, using aseptic technique. Blood bp collected. 08:16 XRAY Chest (1 view) In Process Unspecified. EDMS 08:42 CT Abd/Pelvis - IV Contrast Only In Process Unspecified. EDMS 10:53 No provider procedures requiring assistance completed. IV discontinued, intact, bp bleeding controlled, No redness/swelling at site. Pressure dressing applied. Administered Medications: 08:53 CANCELLED (Duplicate Order): morphine 4 mg IVP once over 4 mins sp3 08:53 CANCELLED (Duplicate Order): Zofran (Ondansetron) 4 mg IVP once; over 2 minutes sp3 10:15 Drug: Lasix (furosemide) 40 mg Route: IVP; Site: left antecubital; bp 10:52 Follow up: Response: No adverse reaction bp 10:15 Drug: morphine 4 mg Route: IVP; Infused Over: 4 mins; Site: left antecubital; bp 10:52 Follow up: Response: No adverse reaction bp 10:15 Drug: Zofran (Ondansetron) 4 mg Route: IVP; Site: left antecubital; bp 10:52 Follow up: Response: No adverse reaction bp Medication: 10:53 VIS not applicable for this client. bp Outcome: 10:10 Discharge ordered by . sp3 10:53 Discharged to home ambulatory, with family. bp 10:53 Condition: stable 10:53 Discharge instructions given to patient, family, Instructed on discharge instructions, follow up and referral plans. Demonstrated understanding of instructions, follow-up care. 10:54 Patient left the ED. bp Signatures: Dispatcher [employer] EDMS Glo Torres RN RN ss Garcia, Rubi rg4 Venancio Matias, MELVIN RN bp Omari Gandhi MD MD sp3
[2022-09-13] MEDS ORDERED: ONDANSETRON 4 MG/2 ML VIAL ONE (10:44)
[2022-09-13] MEDS ORDERED: FUROSEMIDE 40 MG/4 ML VIAL ONE (10:44)
[2022-09-13] MEDS ORDERED: MORPHINE 4 MG/ML SYR ONE (10:44)
[2022-09-13 11:19] VITALS: TEMP 97.6
[2022-09-13 11:22] VITALS: BP 146/70; O2SAT 97
--- NOTE | 2022-09-14 16:04 | EKG ---
Test Date: 2022-09-13 Test Time: 07:47:23 Pigeon Fancier: ELIANE MEASUREMENT RESULTS: Intervals: Rate: 71 DC: QRSD: 158 QT: 428 QTc: 465 Agency: P: DC: QRS: 80 T: 266 INTERPRETIVE STATEMENTS: Atrial fibrillation Left bundle branch block Abnormal ECG Compared to ECG 08/24/2022 10:53:00 No significant changes Electronically Signed On 09-14-22 16:00:59 EVENT MANAGEMENT CONSULTANT by Nghia Silverman
== END 2022-09-13 10:54 | disposition home or self-care (01) ==
LOC: ER 07:33
DX: I50.9 Heart failure, unspecified (principal); R18.8 Other ascites; E11.9 Type 2 diabetes mellitus without complications; I10 Essential (primary) hypertension; K74.60 Unspecified cirrhosis of liver; J44.9 Chronic obstructive pulmonary disease, unspecified
CPT/HCPCS: 93005; 85025; 80048; 36415; 83735; 85610; 80076; 84484; 83880; 74177; 71045; 96375; 96374; 99284; Q9967; J1940; J2405

== ENCOUNTER 2023-01-18 00:48 | Emergency (ER) | payer OTHER ==
--- OUTSIDE RECORDS SUMMARY | 2023-01-18 00:55 | XMS REPORT | Continuity of Care Document ---
:1945 Author Organization [facility] t Address [address] [facility] [address] [place] [address] Care Team Providers Name Role Phone Becca Marie DO Primary Care Physician EDVIN MURO Attending Clinician Unavailable ERIKA SUAOZ Attending Clinician Unavailable BECCA MARIE Attending Clinician Unavailable LAB90 Attending Clinician Unavailable DANIELLE ROGEL Attending Clinician Unavailable TYRONE ESTRADA Attending Clinician Unavailable CHARANJIT LIRA Attending Clinician Unavailable RADIOLOGY, DEPT Attending Clinician Unavailable TYLER LUA Attending Clinician Unavailable MARIO CORTEZ Attending Clinician Unavailable LAB39 Attending Clinician Unavailable HALLIE ABREU Attending Clinician Unavailable Becca Marie DO Attending Clinician AVA MENDIETA Attending Clinician Unavailable Payers Payer Name Policy Type Policy Number Effective Date Expiration Date S jean-pierre [facility] TXP [id number] 2021 CLASSIC NO PREMIUM 00:00:00 R2T Problems Condition Condition Condition Status Onset Resolution Last Treating Co mments Source Name Details Category Date Date Treatment Clinician Date Chronic Chronic Disease Active Anai cough cough 2-24 Seybold 00:00: - 00 Externa l 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 00:00: - with with 00 Externa peripheral peripheral l 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 129 Se ybold to to 00:00: - conditions conditions 00 Ex terna classified classified l elsewhere elsewhere [facility] adult Disease Active Gaby kimbrough exam exam 04-26 Seybold 00:00: - 00 Externa l 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 without without prior prior episode episode Gastroesop Gastroesop Disease Active Gaby kimbrough hageal hageal 6 Seybold reflux reflux 00:00: - disease disease 00 Externa without without l esophagiti esophagiti s s Diabetic Diabetic Disease Active Rakanse y ulcer of ulcer of 11-24 Seybol d toe of toe of 00:00: [...] 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 Seasonal Seasonal Disease Active Elda y allergic allergic 4-21 Seybol d rhinitis rhinitis 00:00: - due [...] current use of use of insulin insulin Hypercoagu Hypercoagu Disease Active Gaby tao lable 3- Seybold state due state due 00:00: - 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 00 Exte rna fibrillati fibrillati l on on 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 00:00: - failure, failure, 00 Integrity Assessor a unspecifie unspecifie l d heart d heart failure failure type type Hypercoagu Hypercoagu Disease Active Gaby tao lable 3-01 Seybold state due state due 00:00: - 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 00 Exte rna fibrillati fibrillati l on on Chronic Chronic Disease Active Anai obstructiv obstructiv 2-18 Se ybold e e 00:00: - pulmonary [...] Externa l 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 Social History Social Habit Start Date Stop Date Quantity Comments Source History of tobacco Cigarette Smoker Anaizulma Nieto use - External Gender identity Anai Se saleemold - External Sexual orientation Anai Nieto - External Alcohol intake 2023-01-11 2023-01-11 Ex-drinker Anai Crowdermare marc 00:00:00 00:00:00 (finding) - External History of Social 2022-10-31 2022-10-31 Anai Emilia function 00:00:00 00:00:00 - External Cigarettes smoked 2022-10-31 2022-10-31 Anai Nieto current (pack per 00:00:00 00:00:00 - Exter nal day) - Reported Cigarette 2022-10-31 2022-10-31 Anai Nieto pack-years 00:00:00 00:00:00 - External Tobacco use and 2022-10-31 2022-10-31 Smokeless tobacco Ke stephany Nieto exposure 00:00:00 00:00:00 non-user - External Education 2021-09-15 2021-09-15 5 Anai Emilia 00:00:00 00:00:00 - External Sex [birth year] Anai puente 00:00:00 00:00:00 - External Smoking Status Start Date Stop Date Source Ex-smoker 2022-10-31 00:00:00 2022-10-31 00:00:00 Anai pang - External Smokes tobacco daily 2021-09-15 00:00:00 Anai Nieto - External Medications Ordered Filled Start Stop Current Ordering Indication Dosage Frequency Signature Comments Components Source Medication Medication Date Date Medication? Clinician (SIG) Name Name Bao Yes [id number] Inhale 1 Anai m Adona 6-16 inhalation Seyb old (Incruse 11:34: into the - Ellipta) 54 lungs Externa 62.5 daily l MCG/INH inhalation AEROSOL POWDER, BREATH ACTIVATED Lidocaine 5 Yes Apply 1 Rakan sey % apply 6-16 applicatio Seybol d externally 11:34: n - Ointment 54 topically Integrity Assessor a as needed l Omeprazole Yes every 24 Rakan sey 20 MG oral 6-16 hours Seybold Delayed 11:34: - Release 54 Externa Capsule l Paroxetine Yes every 24 Rakan sey HCl 20 MG 6-16 hours Seybold oral Tablet 11:34: - 54 Externa l Insulin Yes [id number] 2 units if Anai Aspart 6-05 blood Seybold (NovoLOG 00:00: sugar is - FlexPen) 00 250-299, 4 Exter na 100 UNIT/ML units if l subcutaneou blood s Solution sugar is Pen-injecto 300-350, 6 r units if blood sugar is 351-399, 8 units if blood sugar is above 400; Max dose of 25 units per day Umeclidiniu 2023-0 Yes [id number] Inhale 1 Anai m Adona 5-31 inhalation Seyb old (Incruse 08:13: into the - Ellipta) 15 lungs Externa 62.5 daily l MCG/INH inhalation AEROSOL POWDER, BREATH ACTIVATED Lidocaine 5 2022-0 Yes Apply 1 Rakan sey % apply 5- applicatio Seybol d externally 08:13: n - Ointment 15 topically Integrity Assessor a as needed l Omeprazole 3-0 Yes every 24 Rakan sey 20 MG oral 5-31 hours Seybold Delayed 08:13: - Release 15 Externa Capsule l Paroxetine 2023-0 Yes every 24 Rakan sey HCl 20 MG 5-31 hours Seybold oral Tablet 08:13: - 15 Externa l Umeclidiniu 3-0 Yes [id number] Inhale 1 Anai m Adona 5-31 inhalation Seyb old (Incruse 08:13: into the - Ellipta) 15 lungs Externa 62.5 daily l MCG/INH inhalation AEROSOL POWDER, BREATH ACTIVATED Lidocaine 2022-0 Yes Apply 1 Rakan sey % apply - applicatio Seybol d externally 08:13: n - Ointment 15 topically Integrity Assessor a as needed l Omeprazole 3-0 Yes every 24 Rakan sey 20 MG oral 5-31 hours Seybold Delayed 08:13: - Release 15 Externa Capsule l Paroxetine 3-0 Yes every 24 Rakan sey HCl 20 MG 5-31 hours Seybold oral Tablet 08:13: - 15 Externa l Insulin 2023-0 Yes [id number] 10 units Ke lsey Detemir 5-31 sc daily Seybold (Levemir 00:00: - FlexPen) 00 Externa 100 UNIT/ML l subcutaneou s Solution Pen-injecto r Insulin 3-0 Yes [id number] 2 units if Anai Aspart 5-31 blood Seybold (NovoLOG 00:00: sugar is - FlexPen) 00 250-2994 Externa 100 UNIT/ML units if l subcutaneou blood s Solution sugar is Pen-injecto 300-3506 r units if blood sugar is 351-3998 units if blood sugar is above 400Max dose of 25 units per day Furosemide Yes [id number] 40mg QD Take 1 Anai (Lasix) 40 5-31 tablet (40 Sey bold MG oral 00:00: mg total) - Tablet 00 by mouth Externa daily as l needed Insulin Yes [id number] 10 units Ke lsey Detemir 5-31 sc daily Seybold (Levemir 00:00: - FlexPen) 00 Externa 100 UNIT/ML l subcutaneou s Solution Pen-injecto r Insulin Yes [id number] 2 units if Anai Aspart 5-31 blood Seybold (NovoLOG 00:00: sugar is - FlexPen) 00 250-2994 Externa 100 UNIT/ML units if l subcutaneou blood s Solution sugar is Pen-injecto 300-3506 r units if blood sugar is 351-3998 units if blood sugar is above 400Max dose of 25 units per day Furosemide Yes [id number] 40mg QD Take 1 Anai (Lasix) 40 5-31 tablet (40 Sey bold MG oral 00:00: mg total) - Tablet 00 by mouth Externa daily as l needed Insulin Yes [id number] 10 units Ke lsey Detemir 5-31 sc daily Seybold (Levemir 00:00: - FlexPen) 00 Externa 100 UNIT/ML l subcutaneou s Solution Pen-injecto r Furosemide Yes [id number] 40mg QD Take 1 Anai (Lasix) 40 5-31 tablet (40 Sey bold MG oral 00:00: mg total) - Tablet 00 by mouth Externa daily as l needed HYDROcodone Yes TAKE 15 ML Anai -Acetaminop 5-24 BY MOUTH Seyb old hen 7.5-325 00:00: TWICE - MG/15ML 00 DAILY FOR Externa oral PAIN. l Solution HYDROcodone Yes TAKE 15 ML Anai -Acetaminop 5-24 BY MOUTH Seyb old hen 7.5-325 00:00: TWICE - MG/15ML 00 DAILY FOR Externa oral PAIN. l Solution HYDROcodone Yes TAKE 15 ML Anai -Acetaminop 5-24 BY MOUTH Seyb old hen 7.5-325 00:00: TWICE - MG/15ML 00 DAILY FOR Externa oral PAIN. l Solution Dexamethaso Yes TAKE 2 Samia ey ne 5-15 TABLETS BY Seybold (DECADRON) 00:00: MOUTH - 4 MG oral 00 TWICE Externa tablet DAILY FOR l 2 DAYS THEN TWICE DAILY FOR 1 DAY. START THE DAY AFTER EACH CHEMO TREATMENT Ondansetron Yes DISSOLVE 1 Anai (ZOFRAN) 4 5-15 TABLET ON Seyb old MG oral 00:00: THE TONGUE - TABLET 00 EVERY 4 TO Externa DISPERSIBLE 6 HOURS l NEEDED Dexamethaso Yes TAKE 2 Samia ey ne 5-15 TABLETS BY Seybold (DECADRON) 00:00: MOUTH - 4 MG oral 00 TWICE Externa tablet DAILY FOR l 2 DAYS THEN TWICE DAILY FOR 1 DAY. START THE DAY AFTER EACH CHEMO TREATMENT Ondansetron Yes DISSOLVE 1 Anai (ZOFRAN) 4 5-15 TABLET ON Seyb old MG oral 00:00: THE TONGUE - TABLET 00 EVERY 4 TO Externa DISPERSIBLE 6 HOURS l NEEDED Dexamethaso Yes TAKE 2 Samia ey ne 5-15 TABLETS BY Seybold (DECADRON) 00:00: MOUTH - 4 MG oral 00 TWICE Externa tablet DAILY FOR l 2 DAYS THEN TWICE DAILY FOR 1 DAY. START THE DAY AFTER EACH CHEMO TREATMENT Ondansetron Yes DISSOLVE 1 Anai (ZOFRAN) 4 5-15 TABLET ON Seyb old MG oral 00:00: THE TONGUE - TABLET 00 EVERY 4 TO Externa DISPERSIBLE 6 HOURS l NEEDED Citalopram Yes [id number] TAKE 1 K elsey Hydrobromid 5-09 TABLET(10 Sey bold e 10 MG 00:00: MG) BY - oral Tablet 00 MOUTH Externa DAILY l Benadryl, Yes SWALLOW 5 Rakan sey Maalox, 5-09 TO 10 ML Seybold Lidocaine 00:00: BEFORE - Viscous HCl 00 MEALS AND Ext lalitha (Magic EVERY l Mouthwash-E NIGHT AT qual Ratio) BEDTIME Citalopram 2023-0 Yes [id number] TAKE 1 K elsey Hydrobromid 5-09 TABLET(10 Sey bold e 10 MG 00:00: MG) BY - oral Tablet 00 MOUTH Externa DAILY l Benadryl, 2022-0 Yes SWALLOW 5 Rakan sey Maalox, 5-09 TO 10 ML Seybold Lidocaine 00:00: BEFORE - Viscous HCl 00 MEALS AND Ext lalitha (Magic EVERY l Mouthwash-E NIGHT AT qual Ratio) BEDTIME Citalopram 2022-0 Yes [id number] TAKE 1 K elsey Hydrobromid 5-09 TABLET(10 Sey bold e 10 MG 00:00: MG) BY - oral Tablet 00 MOUTH Externa DAILY l Benadryl, 0 Yes SWALLOW 5 Rakan sey Maalox, 5-09 TO 10 ML Seybold Lidocaine 00:00: BEFORE - Viscous HCl 00 MEALS AND Ext lalitha (Magic EVERY l Mouthwash-E NIGHT AT qual Ratio) BEDTIME Spironolact 2022-0 Yes [id number] TAKE 1 Anai one 25 MG 5-08 TABLET(25 Seybo ld oral Tablet 00:00: MG) BY - 00 MOUTH Externa DAILY l Levothyroxi 2022-0 Yes [id number] TAKE 1 Anai ne Sodium 5-08 TABLET(112 Seyb old 112 MCG 00:00: MCG) BY - oral Tablet 00 MOUTH Externa EVERY l MORNING ON AN EMPTY STOMACH Spironolact 2022-0 Yes [id number] TAKE 1 Anai one 25 MG 5-08 TABLET(25 Seybo ld oral Tablet 00:00: MG) BY - 00 MOUTH Externa DAILY l Levothyroxi 2022-0 Yes [id number] TAKE 1 Anai ne Sodium 5-08 TABLET(112 Seyb old 112 MCG 00:00: MCG) BY - oral Tablet 00 MOUTH Externa EVERY l MORNING ON AN EMPTY STOMACH Spironolact 2022-0 Yes [id number] TAKE 1 Anai one 25 MG 5-08 TABLET(25 Seybo ld oral Tablet 00:00: MG) BY - 00 MOUTH Externa DAILY l Levothyroxi 2022-0 Yes [id number] TAKE 1 Anai ne Sodium 5-08 TABLET(112 Seyb old 112 MCG 00:00: MCG) BY - oral Tablet 00 MOUTH Externa EVERY l MORNING ON AN EMPTY STOMACH Metformin 2022-0 Yes [id number] TAKE 1 Ke lsey HCl 1000 MG 4-16 TABLET(100 Se ybold oral Tablet 00:00: 0 MG) BY - 00 MOUTH IN Externa THE l MORNING AND IN THE EVENING WITH MEALS Metformin 2022-0 Yes [id number] TAKE 1 Ke lsey HCl 1000 MG 4-16 TABLET(100 Se ybold oral Tablet 00:00: 0 MG) BY - 00 MOUTH IN Externa THE l MORNING AND IN THE EVENING WITH MEALS Metformin 0 Yes [id number] TAKE 1 Ke lsey HCl 1000 MG 4-16 TABLET(100 Se ybold oral Tablet 00:00: 0 MG) BY - 00 MOUTH IN Externa THE l MORNING AND IN THE EVENING WITH MEALS Benzocaine- 2022-0 Yes [id number] Suck on 1 Anai Menthol 4-12 lozenge Seybold (Cepacol 00:00: every 2 - Sore 00 hours as Externa Throat) needed for l 15-3.6 MG sore mouth/throa throat t Lozenge Oxycodone 2022-0 Yes [id number] 30{tbl} Q.[id number] Take 30 Anai HCl 10 MG 4-12 [id number] tablets by Seybold oral Tablet 00:00: 3D mouth 3 - 00 times Externa daily as l needed Benzocaine- 2022-0 Yes [id number] Suck on 1 Anai Menthol 4-12 lozenge Seybold (Cepacol 00:00: every 2 - Sore 00 hours as Externa Throat) needed for l 15-3.6 MG sore mouth/throa throat t Lozenge Oxycodone 2022-0 Yes [id number] 30{tbl} Q.[id number] Take 30 Anai HCl 10 MG 4-12 [id number] tablets by Seybold oral Tablet 00:00: 3D mouth 3 - 00 times Externa daily as l needed Benzocaine- 2022-0 Yes [id number] Suck on 1 Anai Menthol 4-12 lozenge Seybold (Cepacol 00:00: every 2 - Sore 00 hours as Externa Throat) needed for l 15-3.6 MG sore mouth/throa throat t Lozenge Oxycodone 2022-0 Yes [id number] 30{tbl} Q.[id number] Take 30 Anai HCl 10 MG 4-12 [id number] tablets by Seybold oral Tablet 00:00: 3D mouth 3 - 00 times Externa daily as l needed Tramadol 2022-0 Yes [id number] 50mg Q.25D Take 1 K elsey HCl 4-06 tablet (50 Seybold (ULTRAM) 50 00:00: mg total) - MG oral 00 by mouth Externa Tablet every 6 l hours as needed for pain Umeclidiniu 2022-0 Yes [id number] Inhale 1 Anai m Adona 4-05 inhalation Seyb old (Incruse 14:58: into the - Ellipta) 44 lungs Externa 62.5 daily l MCG/INH inhalation AEROSOL POWDER, BREATH ACTIVATED Lidocaine Yes Apply 1 Rakan sey % apply 4-05 applicatio Seybol d externally 14:58: n - Ointment 44 topically Integrity Assessor a as needed l methylPREDN 2022-0 Yes [id number] 1{dave} Take 1 dave Anai ISolone 4-05 by mouth Seybold (Medrol) 4 00:00: See Admin - MG oral 00 Instructio Integrity Assessor a Tablet ns Use as l Therapy directed. Pack methylPREDN 2022-0 Yes [id number] 1{dave} Take 1 dave Anai ISolone 4-05 by mouth Seybold (Medrol) 4 00:00: See Admin - MG oral 00 Instructio Integrity Assessor a Tablet ns Use as l Therapy directed. Pack methylPREDN 2022-0 Yes [id number] 1{dave} Take 1 dave Anai ISolone 4-05 by mouth Seybold (Medrol) 4 00:00: See Admin - MG oral 00 Instructio Integrity Assessor a Tablet ns Use as l Therapy directed. Pack methylPREDN 2022-0 Yes [id number] 1{dave} Take 1 dave Anai ISolone 4-05 by mouth Seybold (Medrol) 4 00:00: See Admin - MG oral 00 Instructio Integrity Assessor a Tablet ns Use as l Therapy directed. Pack Tramadol 2022-0 Yes [id number] 50mg QD Take 1 Ke lsey HCl 3-30 tablet (50 Seybold (ULTRAM) 50 00:00: mg total) - MG oral 00 by mouth Externa Tablet daily as l needed for pain Umeclidiniu Yes [id number] Inhale 1 Anai m Adona 3-23 inhalation Seyb old (Incruse 09:08: into the - Ellipta) 57 lungs Externa 62.5 daily l MCG/INH inhalation AEROSOL POWDER, BREATH ACTIVATED Lidocaine 5 Yes Apply 1 Rakan sey % apply 10-18 applicatio Seybol d externally 09:08: n - Ointment 57 topically Integrity Assessor a as needed l Roflumilast Yes 1{tbl} Take 1 Ke lsey 500 MCG 3-16 tablet by Seybold oral Tablet 00:00: mouth - 00 daily Externa l Roflumilast 0 Yes 1{tbl} Take 1 Ke lsey 500 MCG 3-16 tablet by Seybold oral Tablet 00:00: mouth - 00 daily Externa l Roflumilast 0 Yes 1{tbl} Take 1 Ke lsey 500 MCG 3-16 tablet by Seybold oral Tablet 00:00: mouth - 00 daily Externa l glipiZIDE 0 Yes [id number] 10mg Take 1 Ke lsey 10 MG oral 3-13 tablet (10 Sey bold Tablet 00:00: mg total) - 00 by mouth 2 Externa times l daily glipiZIDE 0 Yes [id number] 10mg Take 1 Ke lsey 10 MG oral 3-13 tablet (10 Sey bold Tablet 00:00: mg total) - 00 by mouth 2 Externa times l daily glipiZIDE 0 Yes [id number] 10mg Take 1 Ke lsey 10 MG oral 3-13 tablet (10 Sey bold Tablet 00:00: mg total) - 00 by mouth 2 Externa times l daily glipiZIDE 0 Yes [id number] 10mg Take 1 Ke lsey 10 MG oral 3-13 tablet (10 Sey bold Tablet 00:00: mg total) - 00 by mouth 2 Externa times l daily glipiZIDE 2022-0 Yes [id number] 10mg Take 1 Ke lsey 10 MG oral 3-13 tablet (10 Sey bold Tablet 00:00: mg total) - 00 by mouth 2 Externa times l daily Semaglutide 0 Yes [id number] .25mg Inject Anai (0.25 or 3-07 0.25 mg Seybold 0.5 00:00: into the - mg/dose) 2 00 skin once Exte rna mg/1.5 mL a week l SQ Solution Pen-Injecto r Umeclidiniu 0 Yes [id number] Inhale 1 Anai m Adona 2-24 inhalation Seyb old (Incruse 10:49: into the - Ellipta) 11 lungs Externa 62.5 daily l MCG/INH inhalation AEROSOL POWDER, BREATH ACTIVATED Lidocaine 5 Yes Apply 1 Rakan sey % apply 24 applicatio Seybol d externally 10:49: n - Ointment 11 topically Integrity Assessor a as needed l Nystatin 2022-0 2022- No [id number] Take 5 mL Anai (Nystatin) 09-21-04 (500,000 Seyb old [id number] 00:00: 05:59 units - UNIT/ML 00 :00 total) by Externa mouth/throa mouth 4 l t times Suspension daily for 7 days Amoxicillin 0 Yes Anai -Pot 2-23 Seybold Clavulanate 00:00: - 875-125 MG 00 Externa oral Tablet l Carvedilol 0 Yes [id number] TAKE 1 K elsey 25 MG oral 2-20 TABLET(25 Seyb old Tablet 00:00: MG) BY - 00 MOUTH IN Externa THE l MORNING AND IN THE EVENING WITH MEALS Carvedilol 2022-0 Yes [id number] TAKE 1 K elsey 25 MG oral 2-20 TABLET(25 Seyb old Tablet 00:00: MG) BY - 00 MOUTH IN Externa THE l MORNING AND IN THE EVENING WITH MEALS Carvedilol 2022-0 Yes [id number] TAKE 1 K elsey 25 MG oral 2-20 TABLET(25 Seyb old Tablet 00:00: MG) BY - 00 MOUTH IN Externa THE l MORNING AND IN THE EVENING WITH MEALS Carvedilol 2022-0 Yes [id number] TAKE 1 K elsey 25 MG oral 2-20 TABLET(25 Seyb old Tablet 00:00: MG) BY - 00 MOUTH IN Externa THE l MORNING AND IN THE EVENING WITH MEALS Carvedilol 2022-0 Yes [id number] TAKE 1 K elsey 25 MG oral 2-20 TABLET(25 Seyb old Tablet 00:00: MG) BY - 00 MOUTH IN Externa THE l MORNING AND IN THE EVENING WITH MEALS Carvedilol 0 Yes [id number] TAKE 1 K elsey 25 MG oral 2-20 TABLET(25 Seyb old Tablet 00:00: MG) BY - 00 MOUTH IN Externa THE l MORNING AND IN THE EVENING WITH MEALS Levothyroxi 0 Yes [id number] TAKE 1 Anai ne Sodium 2-13 TABLET(112 Seyb old 112 MCG 00:00: MCG) BY - oral Tablet 00 MOUTH Externa EVERY l MORNING ON AN EMPTY STOMACH Levothyroxi 0 Yes [id number] TAKE 1 Anai ne Sodium 2-13 TABLET(112 Seyb old 112 MCG 00:00: MCG) BY - oral Tablet 00 MOUTH Externa EVERY l MORNING ON AN EMPTY STOMACH Levothyroxi 0 Yes [id number] TAKE 1 Anai ne Sodium 2-13 TABLET(112 Seyb old 112 MCG 00:00: MCG) BY - oral Tablet 00 MOUTH Externa EVERY l MORNING ON AN EMPTY STOMACH Famotidine 2022- No 20mg Take 20 mg Anai (PEPCID) 20 2-10 02-10 by mouth 2 S eybold MG oral 14:15: 00:00 times - tablet 32 :00 daily Externa l Umeclidiniu Yes [id number] Inhale 1 Anai m Adona 2-10 inhalation Seyb old (Incruse 13:39: into the - Ellipta) 22 lungs Externa 62.5 daily l MCG/INH inhalation AEROSOL POWDER, BREATH ACTIVATED Lidocaine 5 Yes Apply 1 Rakan sey % apply 2-10 applicatio Seybol d externally 13:39: n - Ointment 22 topically Integrity Assessor a as needed l Semaglutide Yes [id number] .25mg Inject Anai (0.25 or 2-10 0.25 mg Seybold 0.5 00:00: into the - mg/dose) 2 00 skin once Exte rna mg/1.5 mL a week l SQ Solution Pen-Injecto r Semaglutide Yes [id number] .25mg Inject Anai (0.25 or 2-10 0.25 mg Seybold 0.5 00:00: into the - mg/dose) 2 00 skin once Exte rna mg/1.5 mL a week l SQ Solution Pen-Injecto r Fluocinonid 2022-0 Yes APPLY Kelse y e 0.05 % 2-09 TOPICALLY Seybol d apply 00:00: TO THE - externally 00 AFFECTED Exter na Cream AREA TWICE l DAILY Fluocinonid 2022-0 Yes APPLY Kelse y e 0.05 % 2-09 TOPICALLY Seybol d apply 00:00: TO THE - externally 00 AFFECTED Exter na Cream AREA TWICE l DAILY Fluocinonid 2022-0 Yes APPLY Kelse y e 0.05 % 2-09 TOPICALLY Seybol d apply 00:00: TO THE - externally 00 AFFECTED Exter na Cream AREA TWICE l DAILY Fluocinonid 2022-0 Yes APPLY Kelse y e 0.05 % 2-09 TOPICALLY Seybol d apply 00:00: TO THE - externally 00 AFFECTED Exter na Cream AREA TWICE l DAILY Fluocinonid 3-0 Yes APPLY Kelse y e 0.05 % 2-09 TOPICALLY Seybol d apply 00:00: TO THE - externally 00 AFFECTED Exter na Cream AREA TWICE l DAILY Fluocinonid 2022-0 Yes APPLY Kelse y e 0.05 % 2-09 TOPICALLY Seybol d apply 00:00: TO THE - externally 00 AFFECTED Exter na Cream AREA TWICE l DAILY Pantoprazol 2022-0 2023- No Kelse y e Sodium 40 - 02-10 Seybold MG oral 00:00: 00:00 - Tablet 00 :00 Externa Delayed l Response Famotidine 3-0 Yes 20mg Take 20 mg K elsey (PEPCID) 20 1-27 by mouth Seyb old MG oral 00:00: daily - tablet 00 Externa l Famotidine 3-0 Yes 20mg Take 20 mg K elsey (PEPCID) 20 1-27 by mouth Seyb old MG oral 00:00: daily - tablet 00 Externa l Famotidine 2023-0 Yes 20mg Take 20 mg K elsey (PEPCID) 20 1-27 by mouth Seyb old MG oral 00:00: daily - tablet 00 Externa l Famotidine 3-0 Yes 20mg Take 1 Kelse y (PEPCID) 20 1-27 tablet (20 Se ybold MG oral 00:00: mg total) - tablet 00 by mouth Externa daily l Famotidine 2023-0 Yes 20mg Take 1 Kelse y (PEPCID) 20 1-27 tablet (20 Se ybold MG oral 00:00: mg total) - tablet 00 by mouth Externa daily l Famotidine 2023-0 Yes 20mg Take 1 Kelse y (PEPCID) 20 1-27 tablet (20 Se ybold MG oral 00:00: mg total) - tablet 00 by mouth Externa daily l Famotidine 2023-0 Yes 20mg Take 1 Kelse y (PEPCID) 20 1-27 tablet (20 Se ybold MG oral 00:00: mg total) - tablet 00 by mouth Externa daily l Advair 3-0 Yes Anai Diskus 1-22 Seybold 250-50 00:00: - MCG/ACT 00 Externa inhalation l AEROSOL POWDER, BREATH ACTIVATED Advair 3-0 Yes Anai Diskus 1-22 Seybold 250-50 00:00: - MCG/ACT 00 Externa inhalation l AEROSOL POWDER, BREATH ACTIVATED Advair 3-0 Yes Anai Diskus 1-22 Seybold 250-50 00:00: - MCG/ACT 00 Externa inhalation l AEROSOL POWDER, BREATH ACTIVATED Advair 3-0 Yes Anai Diskus 1-22 Seybold 250-50 00:00: - MCG/ACT 00 Externa inhalation l AEROSOL POWDER, BREATH ACTIVATED Advair 3-0 Yes Anai Diskus 1-22 Seybold 250-50 00:00: - MCG/ACT 00 Externa inhalation l AEROSOL POWDER, BREATH ACTIVATED Advair 3-0 Yes Anai Diskus 1-22 Seybold 250-50 00:00: - MCG/ACT 00 Externa inhalation l AEROSOL POWDER, BREATH ACTIVATED Advair 3-0 Yes Anai Diskus 1-22 Seybold 250-50 00:00: - MCG/ACT 00 Externa inhalation l AEROSOL POWDER, BREATH ACTIVATED Citalopram 3-0 Yes [id number] TAKE 1 K elsey Hydrobromid 1-17 TABLET(10 Sey bold e 10 MG 00:00: MG) BY - oral Tablet 00 MOUTH Externa DAILY l Citalopram 2023-0 Yes [id number] TAKE 1 K elsey Hydrobromid 1-17 TABLET(10 Sey bold e 10 MG 00:00: MG) BY - oral Tablet 00 MOUTH Externa DAILY l Citalopram 0 Yes [id number] TAKE 1 K elsey Hydrobromid 1-17 TABLET(10 Sey bold e 10 MG 00:00: MG) BY - oral Tablet 00 MOUTH Externa DAILY l Citalopram 2022-0 Yes [id number] TAKE 1 K elsey Hydrobromid 1-17 TABLET(10 Sey bold e 10 MG 00:00: MG) BY - oral Tablet 00 MOUTH Externa DAILY l Cetirizine 2021-07 Yes [id number] 5mg Take 1 K elsey HCl 5 MG 2-20 tablet (5 Seybol d oral Tablet 00:00: mg total) - 00 by mouth Externa daily l FLUTICASONE 2021-07 Yes [id number] 50ug Use 1 K elsey PROPIONATE, 2-20 spray (50 Sey bold NASAL, 50 00:00: mcg total) - MCG/ACT 00 in each Externa nasal nostril l Suspension daily Cetirizine 2021-07 Yes [id number] 5mg Take 1 K elsey HCl 5 MG 2-20 tablet (5 Seybol d oral Tablet 00:00: mg total) - 00 by mouth Externa daily l FLUTICASONE 2021-07 Yes [id number] 50ug Use 1 K elsey PROPIONATE, 2-20 spray (50 Sey bold NASAL, 50 00:00: mcg total) - MCG/ACT 00 in each Externa nasal nostril l Suspension daily Cetirizine 2021-07 Yes [id number] 5mg Take 1 K elsey HCl 5 MG 2-20 tablet (5 Seybol d oral Tablet 00:00: mg total) - 00 by mouth Externa daily l FLUTICASONE 2021-07 Yes [id number] 50ug Use 1 K elsey PROPIONATE, 2-20 spray (50 Sey bold NASAL, 50 00:00: mcg total) - MCG/ACT 00 in each Externa nasal nostril l Suspension daily Cetirizine 2021-07 Yes [id number] 5mg Take 1 K elsey HCl 5 MG 2-20 tablet (5 Seybol d oral Tablet 00:00: mg total) - 00 by mouth Externa daily l FLUTICASONE 2021-07 Yes [id number] 50ug Use 1 K elsey PROPIONATE, 2-20 spray (50 Sey bold NASAL, 50 00:00: mcg total) - MCG/ACT 00 in each Externa nasal nostril l Suspension daily Cetirizine 2021-07 Yes [id number] 5mg Take 1 K elsey HCl 5 MG 2-20 tablet (5 Seybol d oral Tablet 00:00: mg total) - 00 by mouth Externa daily l FLUTICASONE 2021-07 Yes [id number] 50ug Use 1 K elsey PROPIONATE, 2-20 spray (50 Sey bold NASAL, 50 00:00: mcg total) - MCG/ACT 00 in each Externa nasal nostril l Suspension daily Cetirizine 2021-07 Yes [id number] 5mg Take 1 K elsey HCl 5 MG 2-20 tablet (5 Seybol d oral Tablet 00:00: mg total) - 00 by mouth Externa daily l FLUTICASONE 2021-07 Yes [id number] 50ug Use 1 K elsey PROPIONATE, 2-20 spray (50 Sey bold NASAL, 50 00:00: mcg total) - MCG/ACT 00 in each Externa nasal nostril l Suspension daily Cetirizine 2021-07 Yes [id number] 5mg Take 1 K elsey HCl 5 MG 2-20 tablet (5 Seybol d oral Tablet 00:00: mg total) - 00 by mouth Externa daily l FLUTICASONE 2021-07 Yes [id number] 50ug Use 1 K elsey PROPIONATE, 2-20 spray (50 Sey bold NASAL, 50 00:00: mcg total) - MCG/ACT 00 in each Externa nasal nostril l Suspension daily Cetirizine 2021-07 Yes [id number] 5mg Take 1 K elsey HCl 5 MG 2-20 tablet (5 Seybol d oral Tablet 00:00: mg total) - 00 by mouth Externa daily l FLUTICASONE 2021-07 Yes [id number] 50ug Use 1 K elsey PROPIONATE, 2-20 spray (50 Sey bold NASAL, 50 00:00: mcg total) - MCG/ACT 00 in each Externa nasal nostril l Suspension daily FLUTICASONE 2021-07 Yes [id number] 50ug Use 1 K elsey PROPIONATE, 1-29 spray (50 Sey bold NASAL, 50 00:00: mcg total) - MCG/ACT 00 in each Externa nasal nostril l Suspension daily FLUTICASONE 2021-07- No [id number] 50ug Use 1 Anai PROPIONATE, 1-29 12-20 spray (50 Se ybold NASAL, 50 00:00: 00:00 mcg total) - MCG/ACT 00 :00 in each Externa nasal nostril l Suspension daily Levothyroxi 2021-07 Yes [id number] TAKE 1 Anai ne Sodium 1-07 TABLET(112 Seyb old 112 MCG 00:00: MCG) BY - oral Tablet 00 MOUTH Externa EVERY l MORNING ON AN EMPTY STOMACH Levothyroxi 2021-07 Yes [id number] TAKE 1 Anai ne Sodium 1-07 TABLET(112 Seyb old 112 MCG 00:00: MCG) BY - oral Tablet 00 MOUTH Externa EVERY l MORNING ON AN EMPTY STOMACH Levothyroxi 2021-07 Yes [id number] TAKE 1 Anai ne Sodium 1-07 TABLET(112 Seyb old 112 MCG 00:00: MCG) BY - oral Tablet 00 MOUTH Externa EVERY l MORNING ON AN EMPTY STOMACH Spironolact 2021-07 Yes [id number] TAKE 1 Anai one 25 MG 0-19 TABLET(25 Seybo ld oral Tablet 00:00: MG) BY - 00 MOUTH Externa DAILY l Spironolact 2021-07 Yes [id number] TAKE 1 Anai one 25 MG 0-19 TABLET(25 Seybo ld oral Tablet 00:00: MG) BY - 00 MOUTH Externa DAILY l Spironolact 2021-07 Yes [id number] TAKE 1 Anai one 25 MG 0-19 TABLET(25 Seybo ld oral Tablet 00:00: MG) BY - 00 MOUTH Externa DAILY l Spironolact 2021-07 Yes [id number] TAKE 1 Anai one 25 MG 0-19 TABLET(25 Seybo ld oral Tablet 00:00: MG) BY - 00 MOUTH Externa DAILY l Spironolact 2021-07 Yes [id number] TAKE 1 Anai one 25 MG 0-19 TABLET(25 Seybo ld oral Tablet 00:00: MG) BY - 00 MOUTH Externa DAILY l Spironolact 2021-07 Yes [id number] TAKE 1 Anai one 25 MG 0-19 TABLET(25 Seybo ld oral Tablet 00:00: MG) BY - 00 MOUTH Externa DAILY l Umeclidiniu Yes [id number] Inhale 1 Anai m Adona -29 inhalation Seyb old (Incruse 08:57: into the - Ellipta) 43 lungs Externa 62.5 daily l MCG/INH inhalation AEROSOL POWDER, BREATH ACTIVATED Lidocaine Yes Apply 1 Rakan sey % apply 04-26 applicatio Seybol d externally 08:57: n - Ointment 43 topically Integrity Assessor a as needed l Umeclidiniu 0 Yes [id number] Inhale 1 Anai m Adona -29 inhalation Seyb old (Incruse 08:57: into the - Ellipta) 43 lungs Externa 62.5 daily l MCG/INH inhalation AEROSOL POWDER, BREATH ACTIVATED Lidocaine Yes Apply 1 Rakan sey % apply 04-26 applicatio Seybol d externally 08:57: n - Ointment 43 topically Integrity Assessor a as needed l Umeclidiniu Yes [id number] Inhale 1 Anai m Adona - inhalation Seyb old (Incruse 08:57: into the - Ellipta) 43 lungs Externa 62.5 daily l MCG/INH inhalation AEROSOL POWDER, BREATH ACTIVATED Lidocaine Yes Apply 1 Rakan sey % apply 04-26 applicatio Seybol d externally 08:57: n - Ointment 43 topically Integrity Assessor a as needed l Triamcinolo 2021- No [id number] Apply to Anai ne 04-26 10-28 affected Seybold Acetonide 00:00: 04:59 skin twice - 0.1 % apply 00 :00 daily for Ext lalitha externally 14 days. l Cream Citalopram Yes [id number] 10mg Take 1 K elsey Hydrobromid 9-12 tablet (10 Se ybold e (CeleXA) 00:00: mg total) - 10 MG oral 00 by mouth Exter na Tablet daily l Atorvastati Yes [id number] 10mg Take 1 Anai n Calcium 9-12 tablet (10 Seyb old (Lipitor) 00:00: mg total) - 10 MG oral 00 by mouth Exter na Tablet daily l Citalopram Yes [id number] 10mg Take 1 K elsey Hydrobromid 9-12 tablet (10 Se ybold e (CeleXA) 00:00: mg total) - 10 MG oral 00 by mouth Exter na Tablet daily l Atorvastati 2021-0 Yes [id number] 10mg Take 1 Anai n Calcium 9-12 tablet (10 Seyb old (Lipitor) 00:00: mg total) - 10 MG oral 00 by mouth Exter na Tablet daily l Citalopram 2021-0 Yes [id number] 10mg Take 1 K elsey Hydrobromid 9-12 tablet (10 Se ybold e (CeleXA) 00:00: mg total) - 10 MG oral 00 by mouth Exter na Tablet daily l Atorvastati 2021-0 Yes [id number] 10mg Take 1 Anai n Calcium 9-12 tablet (10 Seyb old (Lipitor) 00:00: mg total) - 10 MG oral 00 by mouth Exter na Tablet daily l Atorvastati 2021-0 Yes [id number] 10mg Take 1 Anai n Calcium 9-12 tablet (10 Seyb old (Lipitor) 00:00: mg total) - 10 MG oral 00 by mouth Exter na Tablet daily l Atorvastati 2021-0 Yes [id number] 10mg Take 1 Anai n Calcium 9-12 tablet (10 Seyb old (Lipitor) 00:00: mg total) - 10 MG oral 00 by mouth Exter na Tablet daily l Atorvastati 2021-0 Yes [id number] 10mg Take 1 Anai n Calcium 9-12 tablet (10 Seyb old (Lipitor) 00:00: mg total) - 10 MG oral 00 by mouth Exter na Tablet daily l Atorvastati 2021-0 Yes [id number] 10mg Take 1 Anai n Calcium 9-12 tablet (10 Seyb old (Lipitor) 00:00: mg total) - 10 MG oral 00 by mouth Exter na Tablet daily l Atorvastati 2021-0 Yes [id number] 10mg Take 1 Anai n Calcium 9-12 tablet (10 Seyb old (Lipitor) 00:00: mg total) - 10 MG oral 00 by mouth Exter na Tablet daily l Atorvastati 2021-0 Yes [id number] 10mg Take 1 Anai n Calcium 9-12 tablet (10 Seyb old (Lipitor) 00:00: mg total) - 10 MG oral 00 by mouth Exter na Tablet daily l Atorvastati 0 Yes [id number] 10mg Take 1 Anai n Calcium 9-12 tablet (10 Seyb old (Lipitor) 00:00: mg total) - 10 MG oral 00 by mouth Exter na Tablet daily l Carvedilol 0 Yes [id number] 25mg Take 1 K elsey 25 MG oral 9-02 tablet (25 Sey bold Tablet 00:00: mg total) - 00 by mouth Externa in the l morning and 1 tablet (25 mg total) in the evening. Take with meals. Carvedilol Yes [id number] 25mg Take 1 K elsey 25 MG oral 9-02 tablet (25 Sey bold Tablet 00:00: mg total) - 00 by mouth Externa in the l morning and 1 tablet (25 mg total) in the evening. Take with meals. Carvedilol 0 Yes [id number] 25mg Take 1 K elsey 25 MG oral 9-02 tablet (25 Sey bold Tablet 00:00: mg total) - 00 by mouth Externa in the l morning and 1 tablet (25 mg total) in the evening. Take with meals. Carvedilol 0 Yes [id number] 25mg Take 1 K elsey 25 MG [...] Tablet 00 Externa Delayed l Response Pantoprazol 2021-0 Yes 40mg Take 40 mg Anai e Sodium 40 8-24 by mouth Seyb old MG oral 00:00: daily - Tablet 00 Externa Delayed l Response Pantoprazol 2021-0 2021- No 40mg Take 40 mg Anai e Sodium 40 8-24 12-20 by mouth Sey bold MG oral 00:00: 00:00 daily - Tablet 00 :00 Externa Delayed l Response FLUTICASONE 2021-0 Yes [id number] 50ug Use 1 K elsey PROPIONATE, 8-10 spray (50 Sey bold NASAL, 50 00:00: mcg total) - MCG/ACT 00 in each Externa nasal nostril l Suspension daily glipiZIDE 0 Yes [id number] 10mg Take 1 Ke lsey 10 MG oral 8-10 tablet (10 Sey bold Tablet 00:00: mg total) - 00 by mouth 2 Externa times l daily Omeprazole 2021-0 Yes [id number] 40mg Take 1 Anai 40 MG oral 8-10 capsule Seybol d Delayed 00:00: (40 mg - Release 00 total) by Externa Capsule mouth l daily glipiZIDE 0 Yes [id number] 10mg Take 1 Ke lsey 10 MG oral 8-10 tablet (10 Sey bold Tablet 00:00: mg total) - 00 by mouth 2 Externa times l daily Omeprazole 0 Yes [id number] 40mg Take 1 Anai 40 MG oral 8-10 capsule Seybol d Delayed 00:00: (40 mg - Release 00 total) by Externa Capsule mouth l daily glipiZIDE 0 Yes [id number] 10mg Take 1 Ke lsey 10 MG oral 8-10 tablet (10 Sey bold Tablet 00:00: mg total) - 00 by mouth 2 Externa times l daily Omeprazole 2021-0 Yes [id number] 40mg Take 1 Anai 40 MG oral 8-10 capsule Seybol d Delayed 00:00: (40 mg - Release 00 total) by Externa Capsule mouth l daily glipiZIDE 2021-0 Yes [id number] 10mg Take 1 Ke lsey 10 MG oral 8-10 tablet (10 Sey bold Tablet 00:00: mg total) - 00 by mouth 2 Externa times l daily glipiZIDE 0 Yes [id number] 10mg Take 1 Ke lsey 10 MG oral 8-10 tablet (10 Sey bold Tablet 00:00: mg total) - 00 by mouth 2 Externa times l daily Omeprazole 0 2022- No [id number] 40mg Take 1 Anai 40 MG oral 8-10 02-10 capsule Seybo ld Delayed 00:00: 00:00 (40 mg - Release 00 :00 total) by Externa Capsule mouth l daily FLUTICASONE 2021-0 2021- No [id number] 50ug Use 1 Anai PROPIONATE, 8-10 11-29 spray (50 Se ybold NASAL, 50 00:00: 00:00 mcg total) - MCG/ACT 00 :00 in each Externa nasal nostril l Suspension daily Levothyroxi 2021-0 Yes [id number] 112ug Take 1 Anai ne Sodium 7-29 tablet Seybold 112 MCG 00:00: (112 mcg - oral Tablet 00 total) by Ext lalitha mouth l every morning ON AN EMPTY STOMACH Metformin 2021-0 Yes [id number] 1000mg Take 1 Anai HCl 1000 MG 7-25 tablet Seybol d oral Tablet 00:00: (1,000 mg - 00 total) by Externa mouth in l the morning and 1 tablet (1,000 mg total) in the evening. Take with meals. Metformin 2021-0 Yes [id number] 1000mg Take 1 Anai HCl 1000 MG 7-25 tablet Seybol d oral Tablet 00:00: (1,000 mg - 00 total) by Externa mouth in l the morning and 1 tablet (1,000 mg total) in the evening. Take with meals. Metformin 2021-0 Yes [id number] 1000mg Take 1 Anai HCl 1000 MG 7-25 tablet Seybol d oral Tablet 00:00: (1,000 mg - 00 total) by Externa mouth in l the morning and 1 tablet (1,000 mg total) in the evening. Take with meals. Metformin 2021-0 Yes [id number] 1000mg Take 1 Anai HCl 1000 MG 7-25 tablet Seybol d oral Tablet 00:00: (1,000 mg - 00 total) by Externa mouth in l the morning and 1 tablet (1,000 mg total) in the evening. Take with meals. Metformin 2021-0 Yes [id number] 1000mg Take 1 Anai HCl 1000 MG 7-25 tablet Seybol d oral Tablet 00:00: (1,000 mg - 00 total) by Externa mouth in l the morning and 1 tablet (1,000 mg total) in the evening. Take with meals. Metformin 2021-0 Yes [id number] 1000mg Take 1 Anai HCl 1000 MG 7-25 tablet Seybol d oral Tablet 00:00: (1,000 mg - 00 total) by Externa mouth in l the morning and 1 tablet (1,000 mg total) in the evening. Take with meals. Metformin 2022-0 Yes [id number] 1000mg Take 1 Anai HCl 1000 MG 7-25 tablet Seybol d oral Tablet 00:00: (1,000 mg - 00 total) by Externa mouth in l the morning and 1 tablet (1,000 mg total) in the evening. Take with meals. Dapaglifloz Yes [id number] 1{each} Take 1 Anai in 01-26 each by Seybold Propanediol 00:00: mouth - (Farxiga) 5 00 daily Externa MG oral l Tablet Dapaglifloz Yes [id number] 1{each} Take 1 Anai in 01-26 each by Seybold Propanediol 00:00: mouth - (Farxiga) 5 00 daily Externa MG oral l Tablet Dapaglifloz Yes [id number] 1{each} Take 1 Anai in 01-26 each by Seybold Propanediol 00:00: mouth - (Farxiga) 5 00 daily Externa MG oral l Tablet Dapaglifloz 2023- No [id number] 1{each} Take 1 Anai in 01-26 02-10 each by Seybold Propanediol 00:00: 00:00 mouth - (Farxiga) 5 00 :00 daily Externa MG oral l Tablet Furosemide 0 Yes [id number] 40mg Take 1 Anai (Lasix) 40 6-29 tablet (40 Sey bold MG oral 00:00: mg total) - Tablet 00 by mouth Externa daily l Furosemide 2021-0 Yes [id number] 40mg Take 1 Anai (Lasix) 40 6-29 tablet (40 Sey bold MG oral 00:00: mg total) - Tablet 00 by mouth Externa daily l Furosemide 2021-0 Yes [id number] 40mg Take 1 Anai (Lasix) 40 6-29 tablet (40 Sey bold MG oral 00:00: mg total) - Tablet 00 by mouth Externa daily l Furosemide 2021-0 Yes [id number] 40mg Take 1 Anai (Lasix) 40 6-29 tablet (40 Sey bold MG oral 00:00: mg total) - Tablet 00 by mouth Externa daily l Furosemide 2021-0 Yes [id number] 40mg Take 1 Anai (Lasix) 40 6-29 tablet (40 Sey bold MG oral 00:00: mg total) - Tablet 00 by mouth Externa daily l Furosemide Yes [id number] 40mg Take 1 Anai (Lasix) 40 6-29 tablet (40 Sey bold MG oral 00:00: mg total) - Tablet 00 by mouth Externa daily l Furosemide Yes [id number] 40mg Take 1 Anai (Lasix) 40 6-29 tablet (40 Sey bold MG oral 00:00: mg total) - Tablet 00 by mouth Externa daily l Furosemide 0 2023- No [id number] 40mg Take 1 Anai (Lasix) 40 6-29 05-31 tablet (40 Se ybold MG oral 00:00: 00:00 mg total) - Tablet 00 :00 by mouth Externa daily l Tramadol Yes 1{tbl} Q.25D Take 1 Samia [...] externally 00 Externa Ointment l Santyl 250 2-0 Yes APPLY TO Rakan sey UNIT/GM 5-04 WOUND Seybold apply 00:00: EVERY DAY - externally 00 Externa Ointment l Santyl 250 2-0 Yes APPLY TO Rakan sey UNIT/GM 5-04 WOUND Seybold apply 00:00: EVERY DAY - externally 00 Externa Ointment l Santyl 250 2-0 Yes APPLY TO Rakan sey UNIT/GM 5-04 WOUND Seybold apply 00:00: EVERY DAY - externally 00 Externa Ointment l Santyl 250 2021-0 Yes APPLY TO Rakan sey UNIT/GM 5-04 WOUND Seybold apply 00:00: EVERY DAY - externally 00 Externa Ointment l Santyl 250 2021-0 Yes APPLY TO Rkaan sey UNIT/GM 5-04 WOUND Seybold apply 00:00: EVERY DAY - externally 00 Externa Ointment l Santyl 250 2021-0 Yes APPLY TO Rakan sey UNIT/GM 5-04 WOUND Seybold apply 00:00: EVERY DAY - externally 00 Externa Ointment l Santyl 250 2021-0 Yes APPLY TO Rakan sey UNIT/GM 5-04 WOUND Seybold apply 00:00: EVERY DAY - externally 00 Externa Ointment l Santyl 250 2-0 Yes APPLY TO Rakan sey UNIT/GM 5-04 WOUND Seybold apply 00:00: EVERY DAY - externally 00 Externa Ointment l Santyl 250 2021-0 Yes APPLY TO Rakan sey UNIT/GM 5-04 WOUND Seybold apply 00:00: EVERY DAY - externally 00 Externa Ointment l Mupirocin Yes [id number] Apply 1 Anai (BACTROBAN) 11-24 applicatio Se ybold 2 % apply 00:00: n externally 00 topically Ointment 2 times daily levoFLOXaci 2021-0 Yes [id number] 500mg Take 1 Anai n 11-24 tablet Seybold (Levaquin) 00:00: (500 mg 500 MG oral 00 total) by Tablet mouth daily Minocycline 2021-0 Yes [id number] 100mg Take 1 Anai HCl 100 MG 4-29 9101 capsule Seybol d oral 00:00: (100 mg Capsule 00 total) by mouth in the morning and 1 capsule (100 mg total) in the evening. Mupirocin 2-0 Yes [id number] Apply 1 Anai (BACTROBAN) 11-24 applicatio Se ybold 2 % apply 00:00: n - externally 00 topically Exte rna Ointment 2 times l daily Minocycline 2-0 Yes [id number] 100mg Take 1 Anai HCl 100 MG 11-24 capsule Seybol d oral 00:00: (100 mg - Capsule 00 total) by Externa mouth in l the morning and 1 capsule (100 mg total) in the evening. Mupirocin 2021-0 Yes [id number] Apply 1 Anai (BACTROBAN) 11-24 applicatio Se ybold 2 % apply 00:00: n - externally 00 topically Exte rna Ointment 2 times l daily Minocycline 2-0 Yes [id number] 100mg Take 1 Anai HCl 100 MG 11-24 capsule Seybol d oral 00:00: (100 mg - Capsule 00 total) by Externa mouth in l the morning and 1 capsule (100 mg total) in the evening. Mupirocin 2-0 Yes [id number] Apply 1 Anai (BACTROBAN) 11-24 applicatio Se ybold 2 % apply 00:00: n - externally 00 topically Exte rna Ointment 2 times l daily Minocycline 2-0 Yes [id number] 100mg Take 1 Anai HCl 100 MG 11-24 capsule Seybol d oral 00:00: (100 mg - Capsule 00 total) by Externa mouth in l the morning and 1 capsule (100 mg total) in the evening. Mupirocin 2-0 Yes [id number] Apply 1 Anai (BACTROBAN) 11-24 applicatio Se ybold 2 % apply 00:00: n - externally 00 topically Exte rna Ointment 2 times l daily Minocycline 2022-0 Yes [id number] 100mg Take 1 Anai HCl 100 MG 11-2401 capsule Seybol d oral 00:00: (100 mg - Capsule 00 total) by Externa mouth in l the morning and 1 capsule (100 mg total) in the evening. Mupirocin 2-0 Yes [id number] Apply 1 Anai (BACTROBAN) 11-24 applicatio Se ybold 2 % apply 00:00: n - externally 00 topically Exte rna Ointment 2 times l daily Minocycline 2-0 Yes [id number] 100mg Take 1 Anai HCl 100 MG 11-24 capsule Seybol d oral 00:00: (100 mg - Capsule 00 total) by Externa mouth in l the morning and 1 capsule (100 mg total) in the evening. Mupirocin 2-0 Yes [id number] Apply 1 Anai (BACTROBAN) 11-24 applicatio Se ybold 2 % apply 00:00: n - externally 00 topically Exte rna Ointment 2 times l daily Minocycline 2-0 Yes [id number] 100mg Take 1 Anai HCl 100 MG 11-24 capsule Seybol d oral 00:00: (100 mg - Capsule 00 total) by Externa mouth in l the morning and 1 capsule (100 mg total) in the evening. Mupirocin 2-0 Yes [id number] Apply 1 Anai (BACTROBAN) 11-24 applicatio Se ybold 2 % apply 00:00: n - externally 00 topically Exte rna Ointment 2 times l daily Minocycline 2-0 Yes [id number] 100mg Take 1 Anai HCl 100 MG 11-24 capsule Seybol d oral 00:00: (100 mg - Capsule 00 total) by Externa mouth in l the morning and 1 capsule (100 mg total) in the evening. Mupirocin 2-0 Yes [id number] Apply 1 Anai (BACTROBAN) 11-24 applicatio Se ybold 2 % apply 00:00: n - externally 00 topically Exte rna Ointment 2 times l daily Minocycline 2022-0 Yes [id number] 100mg Take 1 Anai HCl 100 MG 11-24 capsule Seybol d oral 00:00: (100 mg - Capsule 00 total) by Externa mouth in l the morning and 1 capsule (100 mg total) in the evening. Mupirocin 2022-0 Yes [id number] Apply 1 Anai (BACTROBAN) 11-24 applicatio Se ybold 2 % apply 00:00: n - externally 00 topically Exte rna Ointment 2 times l daily Minocycline Yes [id number] 100mg Take 1 Anai HCl 100 MG 11-24 capsule Seybol d oral 00:00: (100 mg - Capsule 00 total) by Externa mouth in l the morning and 1 capsule (100 mg total) in the evening. Mupirocin Yes [id number] Apply 1 Anai (BACTROBAN) 11-24 applicatio Se ybold 2 % apply 00:00: n - externally 00 topically Exte rna Ointment 2 times l daily Minocycline Yes [id number] 100mg Take 1 Anai HCl 100 MG 11-24 capsule Seybol d oral 00:00: (100 mg - Capsule 00 total) by Externa mouth in l the morning and 1 capsule (100 mg total) in the evening. linaGLIPtin Yes [id number] 1{tbl} Take 1 Anai (Tradjenta) 4-26 tablet by Sey bold 5 MG oral 00:00: mouth Tablet 00 daily Empaglifloz 0 Yes [id number] 1{each} Take 1 Anai in - each by Seybold (Jardiance) 00:00: mouth 10 MG oral 00 daily Tablet linaGLIPtin 2021-0 Yes [id number] 1{tbl} Take 1 Anai (Tradjenta) 4-26 tablet by Sey bold 5 MG oral 00:00: mouth - Tablet 00 daily Externa l linaGLIPtin 2021-0 Yes [id number] 1{tbl} Take 1 Anai (Tradjenta) 4-26 tablet by Sey bold 5 MG oral 00:00: mouth - Tablet 00 daily Externa l linaGLIPtin 2021-0 Yes [id number] 1{tbl} Take 1 Anai (Tradjenta) 4-26 tablet by Sey bold 5 MG oral 00:00: mouth - Tablet 00 daily Externa l linaGLIPtin 2021-0 2022- No [id number] 1{tbl} Take 1 Anai (Tradjenta) 4-26 02-10 tablet by Se ybold 5 MG oral 00:00: 00:00 mouth - Tablet 00 :00 daily Externa l Umeclidiniu 0 Yes [id number] Inhale 1 Anai m Adona 4-21 inhalation Seyb old (Incruse 08:13: into the Ellipta) 06 lungs 62.5 daily MCG/INH inhalation AEROSOL POWDER, BREATH ACTIVATED Lidocaine 5 Yes Apply 1 Rakan sey % apply 4-21 applicatio Seybol d externally 08:13: n Ointment 06 topically as needed Umeclidiniu 2021-0 Yes [id number] Inhale 1 Anai m Adona 4-21 inhalation Seyb old (Incruse 08:13: into the Ellipta) 06 lungs 62.5 daily MCG/INH inhalation AEROSOL POWDER, BREATH ACTIVATED Lidocaine 5 Yes Apply 1 Rakan sey % apply 4-21 applicatio Seybol d externally 08:13: n Ointment 06 topically as needed Empaglifloz 0 Yes [id number] 1{tbl} Take 1 Anai in 4-21 tablet by Emilia (Jardinilay) 00:00: mouth 25 MG oral 00 daily Tablet Cetirizine 0 Yes [id number] 5mg Take 1 K elsey HCl 5 MG 4-21 tablet (5 Seybol d oral Tablet 00:00: mg total) 00 by mouth daily Cetirizine 2021-0 Yes [id number] 5mg Take 1 K elsey HCl 5 MG 4-21 tablet (5 Seybol d oral Tablet 00:00: mg total) 00 by mouth daily Cetirizine 2021-0 Yes [id number] 5mg Take 1 K elsey HCl 5 MG 4-21 tablet (5 Seybol d oral Tablet 00:00: mg total) - 00 by mouth Externa daily l Cetirizine 2021-0 Yes [id number] 5mg Take 1 K elsey HCl 5 MG 4-21 tablet (5 Seybol d oral Tablet 00:00: mg total) - 00 by mouth Externa daily l Cetirizine 2021-0 2021- No [id number] 5mg Take 1 Anai HCl 5 MG 4-21 12-20 tablet (5 Seybo ld oral Tablet 00:00: 00:00 mg total) - 00 :00 by mouth Externa daily l Cephalexin 0 Yes TAKE 1 Kelse y 500 MG [...] 1 K elsey en-Codeine 4-11 tablet by [facility] old #3 300-30 00:00: mouth - MG oral 00 every 6 Externa Tablet hours as l needed FOR PAIN Acetaminoph 2022-0 Yes 1{tbl} Q.25D Take 1 K elsey en-Codeine 4-11 tablet by yb old #3 300-30 00:00: mouth - MG oral 00 every 6 Externa Tablet hours as l needed FOR PAIN Acetaminoph 2022-0 Yes 1{tbl} Q.25D Take 1 K elsey en-Codeine 4-11 tablet by [facility] old #3 300-30 00:00: mouth - MG oral 00 every 6 Externa Tablet hours as l needed FOR PAIN Acetaminoph 2022-0 Yes 1{tbl} Q.25D Take 1 K elsey en-Codeine 4-11 tablet by Seyb old #3 300-30 00:00: mouth - MG oral 00 every 6 Externa Tablet hours as l needed FOR PAIN Acetaminoph 2022-0 Yes 1{tbl} Q.25D Take 1 K elsey en-Codeine 4-11 tablet by yb old #3 300-30 00:00: mouth - MG oral 00 every 6 Externa Tablet hours as l needed FOR PAIN Acetaminoph 2022-0 Yes 1{tbl} Q.25D Take 1 K elsey en-Codeine 4-11 tablet by yb old #3 300-30 00:00: mouth - MG oral 00 every 6 Externa Tablet hours as l needed FOR PAIN Acetaminoph 3- No 1{tbl} Q.25D Take 1 Anai en-Codeine 4-11 04-06 tablet by y bold #3 300-30 00:00: 00:00 mouth - MG oral 00 :00 every 6 Externa Tablet hours as l needed FOR PAIN Umeclidiniu Yes [id number] Inhale 1 Anai m Adona 4-05 inhalation Seyb old (Incruse 09:30: into the Ellipta) 53 lungs 62.5 daily MCG/INH inhalation AEROSOL POWDER, BREATH ACTIVATED Spironolact Yes [id number] 25mg Take 1 Anai one 25 MG 4-05 tablet (25 Seyb old oral Tablet 00:00: mg total) 00 by mouth daily Furosemide 0 Yes 40mg Take 1 Kelse y (Lasix) 40 4-05 tablet (40 Sey bold MG oral 00:00: mg total) Tablet 00 by mouth daily Spironolact 0 Yes [id number] 25mg Take 1 Anai one 25 MG 4-05 tablet (25 Seyb old oral Tablet 00:00: mg total) 00 by mouth daily Furosemide Yes 40mg Take 1 Kelse y (Lasix) 40 4-05 tablet (40 Sey bold MG oral 00:00: mg total) Tablet 00 by mouth daily Spironolact 2021-0 Yes [id number] 25mg Take 1 Anai one 25 MG 4-05 tablet (25 Seyb old oral Tablet 00:00: mg total) - 00 by mouth Externa daily l Spironolact 0 Yes [id number] 25mg Take 1 Anai one 25 MG 4-05 tablet (25 Seyb old oral Tablet 00:00: mg total) 00 by mouth daily Furosemide Yes [id number] 40mg Take 1 K elsey (Lasix) 40 4-05 tablet (40 Sey bold MG oral 00:00: mg total) Tablet 00 by mouth daily Clotrimazol Yes APPLY Kelse y e 1 % apply 3-29 TOPICALLY Sey bold externally 00:00: TO Cream 00 AFFECTED AREA EVERY 12 HOURS Clotrimazol 2022-0 Yes APPLY Kelse y e 1 % apply 3-29 TOPICALLY Sey bold externally 00:00: TO Cream 00 AFFECTED AREA EVERY 12 HOURS Clotrimazol 2022-0 Yes APPLY Kelse y e 1 % apply 3-29 TOPICALLY Sey bold externally 00:00: TO - Cream 00 AFFECTED Externa AREA EVERY l 12 HOURS Clotrimazol 2022-0 Yes APPLY Kelse y e 1 % apply 3-29 TOPICALLY Sey bold externally 00:00: TO - Cream 00 AFFECTED Externa AREA EVERY l 12 HOURS Clotrimazol 2022-0 Yes APPLY Kelse y e 1 % apply 3-29 TOPICALLY Sey bold externally 00:00: TO - Cream 00 AFFECTED Externa AREA EVERY l 12 HOURS Clotrimazol 2022-0 Yes APPLY Kelse y e 1 % apply 3-29 TOPICALLY Sey bold externally 00:00: TO - Cream 00 AFFECTED Externa AREA EVERY l 12 HOURS Clotrimazol 2022-0 Yes APPLY Kelse y e 1 % apply 3-29 TOPICALLY Sey bold externally 00:00: TO - Cream 00 AFFECTED Externa AREA EVERY l 12 HOURS Clotrimazol 2022-0 Yes APPLY Kelse y e 1 % apply 3-29 TOPICALLY Sey bold externally 00:00: TO - Cream 00 AFFECTED Externa AREA EVERY l 12 HOURS Clotrimazol 2022-0 Yes APPLY Kelse y e 1 % apply 3-29 TOPICALLY Sey bold externally 00:00: TO - Cream 00 AFFECTED Externa AREA EVERY l 12 HOURS Clotrimazol 2022-0 Yes APPLY Kelse y e 1 % apply 3-29 TOPICALLY Sey bold externally 00:00: TO - Cream 00 AFFECTED Externa AREA EVERY l 12 HOURS Clotrimazol 2022-0 Yes APPLY Kelse y e 1 % apply 3-29 TOPICALLY Sey bold externally 00:00: TO - Cream 00 AFFECTED Externa AREA EVERY l 12 HOURS Clotrimazol 2022-0 Yes APPLY Kelse y e 1 % apply 3-29 TOPICALLY Sey bold externally 00:00: TO - Cream 00 AFFECTED Externa AREA EVERY l 12 HOURS Clotrimazol 2022-0 Yes APPLY Kelse y e 1 % apply 3-29 TOPICALLY Sey bold externally 00:00: TO Cream 00 AFFECTED AREA EVERY 12 HOURS Spironolact 2021- No [id number] 12.5mg Take 0.5 Anai one 25 MG 2-28 04-05 tablets Seybol d oral Tablet 00:00: 00:00 (12.5 mg 00 :00 total) by mouth daily Carvedilol 2021-0 2021- No 25mg Take 25 mg Anai 25 MG oral 2-18 02-18 by mouth 2 Se ybold Tablet 14:30: 00:00 times 25 :00 daily (with meals) Umeclidiniu Yes Inhale 1 Ke yeceniaey m Adona 2-18 inhalation Seyb old (Incruse 14:18: into the Ellipta) 48 lungs 62.5 daily MCG/INH inhalation AEROSOL POWDER, BREATH ACTIVATED Carvedilol Yes [id number] 25mg Take 1 K elsey 25 MG oral 2-18 tablet (25 Sey bold Tablet 00:00: mg total) 00 by mouth 2 times daily (with meals) Carvedilol 0 Yes [id number] 25mg Take 1 K elsey 25 MG oral 2-18 tablet (25 Sey bold Tablet 00:00: mg total) 00 by mouth 2 times daily (with meals) Carvedilol 2021-0 Yes [id number] 25mg Take 1 K elsey 25 MG oral 2-18 tablet (25 Sey bold Tablet 00:00: mg total) 00 by mouth 2 times daily (with meals) Empaglifloz 2021-0 Yes [id number] 1{tbl} Take 1 Anai in 2-18 tablet by Seybold (Jardiance) 00:00: mouth 10 MG oral 00 daily Tablet Carvedilol 2021-0 Yes [id number] 25mg Take 1 K elsey 25 MG oral 2-18 tablet (25 Sey bold Tablet 00:00: mg total) 00 by mouth 2 times daily (with meals) Empaglifloz 2021-0 Yes [id number] 1{tbl} Take 1 Anai in 2-18 tablet by Seybold (Jardiance) 00:00: mouth 10 MG oral 00 daily Tablet Empaglifloz 2021-0 2021- No [id number] 1{tbl} Take 1 Anai in 2-18 04-21 tablet by Seybold (Jardiance) 00:00: 00:00 mouth 10 MG oral 00 :00 daily Tablet Levothyroxi 2021-0 Yes [id number] 112ug Take 112 Anai ne Sodium 2-15 mcg by Seybold 112 MCG 00:00: mouth oral Tablet 00 every morning ON AN EMPTY STOMACH Metformin 2021-0 Yes [id number] 1000mg Take 1,000 Anai HCl 1000 MG 2-15 mg by Seybold oral Tablet 00:00: mouth 2 00 times daily (with meals) Levothyroxi 2021-0 Yes [id number] 112ug Take 112 Anai ne Sodium 2-15 mcg by Seybold 112 MCG 00:00: mouth oral Tablet 00 every morning ON AN EMPTY STOMACH Metformin 0 Yes [id number] 1000mg Take 1,000 Anai HCl 1000 MG [...] times daily (with meals) Levothyroxi 2021-0 Yes [id number] 112ug Take 112 Anai ne Sodium 2-15 mcg by Seybold 112 MCG 00:00: mouth oral Tablet 00 every morning ON AN EMPTY STOMACH Metformin 2021-0 Yes [id number] 1000mg Take 1,000 Anai HCl 1000 MG 2-15 mg by Seybold oral Tablet 00:00: mouth 2 00 times daily (with meals) Xarelto 20 2021-0 Yes [id number] TAKE 1 K elsey MG oral 1-21 TABLET BY Seybold Tablet 00:00: MOUTH 00 EVERY DAY WITH EVENING MEAL Xarelto 20 2021-0 Yes [id number] TAKE 1 K elsey MG oral 1-21 TABLET BY Seybold Tablet 00:00: MOUTH 00 EVERY DAY WITH EVENING MEAL Xarelto 20 2021-0 Yes [id number] TAKE 1 K elsey MG oral 1-21 TABLET BY Seybold Tablet 00:00: MOUTH - 00 EVERY DAY Externa WITH l EVENING MEAL Xarelto 20 2021-0 Yes [id number] TAKE 1 K elsey MG oral 1-21 TABLET BY Seybold Tablet 00:00: MOUTH - 00 EVERY DAY Externa WITH l EVENING MEAL Xarelto 20 2021-0 Yes [id number] TAKE 1 K elsey MG oral 1-21 TABLET BY Seybold Tablet 00:00: MOUTH - 00 EVERY DAY Externa WITH l EVENING MEAL Xarelto 20 2021-0 Yes TAKE 1 Kelse y MG oral 1-21 TABLET BY Seybold Tablet 00:00: MOUTH 00 EVERY DAY WITH EVENING MEAL Xarelto 20 2021-0 Yes [id number] TAKE 1 K elsey MG oral 1-21 TABLET BY Seybold Tablet 00:00: MOUTH - 00 EVERY DAY Externa WITH l EVENING MEAL Xarelto 20 2021-0 Yes [id number] TAKE 1 K elsey MG oral 1-21 TABLET BY Seybold Tablet 00:00: MOUTH - 00 EVERY DAY Externa WITH l EVENING MEAL Xarelto 20 2021-0 Yes [id number] TAKE 1 K elsey MG oral 1-21 TABLET BY Seybold Tablet 00:00: MOUTH - 00 EVERY DAY Externa WITH l EVENING MEAL Xarelto 20 2021-0 Yes [id number] TAKE 1 Anai MG oral 1-21 [id number] TABLET BY Seyb old Tablet 00:00: MOUTH - 00 EVERY DAY Externa WITH l EVENING MEAL Xarelto 20 2021-0 Yes [id number] TAKE 1 Anai MG oral 1-21 [id number] TABLET BY Seyb old Tablet 00:00: MOUTH - 00 EVERY DAY Externa WITH l EVENING MEAL Xarelto 20 2021-0 Yes [id number] TAKE 1 Anai MG oral 1-21 [id number] TABLET BY Seyb old Tablet 00:00: MOUTH - 00 EVERY DAY Externa WITH l EVENING MEAL Xarelto 20 2021-0 Yes [id number] TAKE 1 Anai MG oral 1-21 [id number] TABLET BY Seyb old Tablet 00:00: MOUTH - 00 EVERY DAY Externa WITH l EVENING MEAL Xarelto 20 2021-0 Yes [id number] TAKE 1 K elsey MG oral 1-21 TABLET BY Seybold Tablet 00:00: MOUTH 00 EVERY DAY WITH EVENING MEAL glipiZIDE 2021-0 Yes [id number] 10mg Take 10 mg Anai 10 MG oral 1-19 by mouth 2 Sey bold Tablet 00:00: times 00 daily glipiZIDE 2021-0 Yes [id number] 10mg Take 10 mg Anai 10 MG oral 1-19 by mouth 2 Sey bold Tablet 00:00: times 00 daily glipiZIDE 2021-0 Yes 10mg Take 10 mg Ke lsey 10 MG oral 1-19 by mouth 2 Sey bold Tablet 00:00: times 00 daily glipiZIDE 2021-0 Yes [id number] 10mg Take 10 mg Anai 10 MG oral 1-19 by mouth 2 Sey bold Tablet 00:00: times 00 daily Spironolact 2021-0 Yes 25mg Take 25 mg Anai one 25 MG 1-08 by mouth Seybol d oral Tablet 00:00: daily 00 Paroxetine 2021-0 Yes [id number] 20mg Take 20 mg Anai HCl 20 MG 1-05 by mouth Seybol d oral Tablet 00:00: every 00 morning Paroxetine 2021-0 Yes [id number] 20mg Take 20 mg Anai HCl 20 MG 1-05 by mouth Seybol d oral Tablet 00:00: every 00 morning Paroxetine 2021-0 Yes 20mg Take 20 mg K elsey HCl 20 MG 1-05 by mouth Seybol d oral Tablet 00:00: every 00 morning Paroxetine 2021-0 Yes [id number] 20mg Take 20 mg Ania HCl 20 MG 1-05 by mouth Seybol d oral Tablet 00:00: every 00 morning Jardiance 2020-2- No 1{tbl} Take 1 Rakan sey 10 MG oral 2-29 02-18 tablet by Sey bold Tablet 00:00: 00:00 mouth 00 :00 daily Omeprazole 2020-1 Yes [id number] 20mg Take 20 mg Anai 20 MG oral 2-24 by mouth Seybo ld Delayed 00:00: daily Release 00 Capsule Omeprazole 2020-1 Yes [id number] 20mg Take 20 mg Anai 20 MG oral 2-24 by mouth Seybo ld Delayed 00:00: daily Release 00 Capsule Omeprazole 2020-1 Yes 20mg Take 20 mg K elsey 20 MG oral 2-24 by mouth Seybo ld Delayed 00:00: daily Release 00 Capsule Omeprazole 2020-1 Yes [id number] 20mg Take 20 mg Anai 20 MG oral 2-24 by mouth Seybo ld Delayed 00:00: daily Release 00 Capsule Immunizations Ordered Immunization Filled Immunization Date Status Commen ts Source Name Name Influenza Virus 2022-04-26 Completed Anai Crowder ybbartolome Vaccine, 00:00:00 - External Quadrivalent, High Dose, [...] - External Influenza Virus 2022-04-26 Completed Anai Crowder ybold [...] 00:00:00 - External Influenza Virus 2022-04-26 Completed Ania Se ybold Vaccine, 00:00:00 - External Quadrivalent, High Dose, Age 65 And Up Tdap- (Boostrix, 2022-04-26 Completed Ania farleybold Adacel) 00:00:00 - External Influenza Virus 2022-04-26 Completed Anai Crowder ybold Vaccine, 00:00:00 - External Quadrivalent, High Dose, Age 65 And Up Tdap- (Boostrix, 2022-04-26 Completed Anai farleybold Adacel) 00:00:00 - External Influenza Virus 2022-04-26 Completed Anai Crowder ybold Vaccine, 00:00:00 - External Quadrivalent, High Dose, Age 65 And Up Tdap- (Boostrix, 2022-04-26 Completed Anai farleybold Adacel) 00:00:00 - External Influenza Virus 2021-02-26 Completed Anai saleemold Vaccine, High Dose, 00:00:00 Age 65 And Up Shingles IM 2021-02-26 Completed Anai Romeool d (Shingrix) 00:00:00 Influenza Virus 2021-02-26 Completed Anai saleemold Vaccine, High Dose, 00:00:00 Age 65 And Up Shingles IM 2021-02-26 Completed Anai Romeool d (Shingrix) 00:00:00 Influenza Virus 2021-02-26 Completed Anai saleemold Vaccine, High Dose, 00:00:00 - Ext ernal Age 65 And Up Shingles IM 2021-02-26 Completed Anai Romeool d (Shingrix) 00:00:00 - External Influenza Virus 2021-02-26 Completed Anai saleemold Vaccine, High Dose, 00:00:00 - Ext ernal Age 65 And Up Shingles IM 2021-02-26 Completed Anai Romeool d (Shingrix) 00:00:00 - External Influenza Virus 2021-02-26 Completed Anai saleemold Vaccine, High Dose, 00:00:00 - Ext ernal Age 65 And Up Shingles IM 2021-02-26 Completed Anai Romeool d (Shingrix) 00:00:00 - External Influenza Virus 2021-02-26 Completed Anai Crowder ybold Vaccine, High Dose, 00:00:00 - Ext ernal Age 65 And Up Shingles IM 2021-02-26 Completed Anai Romeool d (Shingrix) 00:00:00 - External Influenza Virus 2021-02-26 Completed Anai harperold Vaccine, High Dose, 00:00:00 Age 65 And Up Shingles IM 2021-02-26 Completed Anai Romeool d (Shingrix) 00:00:00 Influenza Virus 2021-02-26 Completed Anai ybold Vaccine, High Dose, 00:00:00 - Ext ernal Age 65 And Up Shingles IM 2021-02-26 Completed Anai Romeool d (Shingrix) 00:00:00 - External Influenza Virus 2021-02-26 Completed Anai Crowder ybold Vaccine, High Dose, 00:00:00 - Ext ernal Age 65 And Up Shingles IM 2021-02-26 Completed Anai Romeool d (Shingrix) 00:00:00 - External Influenza Virus 2021-02-26 Completed Anai ybold Vaccine, High Dose, 00:00:00 - Ext ernal Age 65 And Up Shingles IM 2021-02-26 Completed Anai Romeool d (Shingrix) 00:00:00 - External Influenza Virus 2021-02-26 Completed Anai Crowder ybold Vaccine, High Dose, 00:00:00 - Ext ernal Age 65 And Up Shingles IM 2021-02-26 Completed Anai Romeool d (Shingrix) 00:00:00 - External Influenza Virus 2021-02-26 Completed Anai ybold Vaccine, High Dose, 00:00:00 - Ext ernal Age 65 And Up Shingles IM 2021-02-26 Completed Anai Romeool d (Shingrix) 00:00:00 - External Influenza Virus 2021-02-26 Completed Anai ybold Vaccine, High Dose, 00:00:00 - Ext ernal Age 65 And Up Shingles IM 2021-02-26 Completed Anai Crowderybol d (Shingrix) 00:00:00 - External Influenza Virus 2021-02-26 Completed Anai ybold Vaccine, High Dose, 00:00:00 Age 65 And Up Shingles IM 2021-02-26 Completed Anai Crowderybol d (Shingrix) 00:00:00 Hep A/ Hep B [...] Anai Seybol d (Shingrix) 00:00:00 - External Shingles IM 2020-05-03 Completed Anai Seybol d (Shingrix) 00:00:00 - External Shingles IM 2020-05-03 Completed Anai Seybol d (Shingrix) 00:00:00 - External Shingles IM 2020-05-03 Completed Anai Seybol d (Shingrix) 00:00:00 - External Shingles IM 2020-05-03 Completed Anai Seybol d (Shingrix) 00:00:00 - External Shingles IM 2020-05-03 Completed Anai Seybol d (Shingrix) 00:00:00 - External Shingles IM 2020-05-03 Completed Anai Seybol d (Shingrix) 00:00:00 - External Shingles IM 2020-05-03 Completed Anai Seybol d (Shingrix) 00:00:00 - External Shingles IM 2020-05-03 Completed Anai Seybol d (Shingrix) 00:00:00 - External Shingles IM [...] - External Shingles IM 2020-02-19 Completed Anai Seybol d (Shingrix) 00:00:00 - External Shingles IM 2020-02-19 Completed Anai Seybol d (Shingrix) 00:00:00 - External Shingles IM 2020-02-19 Completed Anai Seybol d (Shingrix) 00:00:00 - External Shingles IM 2020-02-19 Completed Anai Seybol d (Shingrix) 00:00:00 - External Shingles IM 2020-02-19 Completed Anai Seybol d (Shingrix) 00:00:00 - External Shingles IM 2020-02-19 Completed Anai Seybol d (Shingrix) 00:00:00 - External Shingles IM 2020-02-19 Completed Anai Seybol d (Shingrix) 00:00:00 - External Shingles IM 2020-02-19 Completed Anai Seybol d (Shingrix) 00:00:00 - External Shingles IM 2020-02-19 Completed Anai Romeool d (Shingrix) 00:00:00 - External Shingles IM 2020-02-19 Completed Anai Romeool d (Shingrix) 00:00:00 - External Pneumococcal 2020-01-30 [...] A/ Hep B Combo 2020-01-30 Completed Anai Nieto 00:00:00 - External Pneumococcal 2020-01-30 Completed Anai Ortiz ld Vaccine, Conjugate 00:00:00 - Exte rnal 13 Hep A/ Hep B Combo 2020-01-30 Completed Anai Nieto 00:00:00 - External Vital Signs Vital Name Observation Time Observation Value Comments Source Systolic blood 2023-01-11 16:33:00 99 mm[Hg] Anai Seybold - pressure External Diastolic blood 2023-01-11 16:33:00 59 mm[Hg] Rakanse y Seybold - pressure External Heart rate 2023-01-11 16:33:00 66 /min Anai Trivedi eybold - External Body temperature 2023-01-11 16:33:00 36.28 Tiki Samia ey Seybold - External Respiratory rate 2023-01-11 16:33:00 15 /min Samia ey Seybold - External Body height 2023-01-11 16:33:00 167.6 cm Anai S eybold - External Body weight 2023-01-11 16:33:00 93.441 kg Anai Trivedi eybold - External BMI 2023-01-11 16:33:00 33.25 kg/m2 Anai S eybold - External Systolic blood 2022-12-26 13:08:00 110 mm[Hg] Anai Seybold - pressure External Diastolic blood 2022-12-26 13:08:00 64 mm[Hg] Rakanse y Seybold - pressure External Heart rate 2022-12-26 13:08:00 60 /min Anai S eybold - External Body temperature 2022-12-26 13:08:00 35.28 Tiki Samia ey Seybold - External Respiratory rate 2022-12-26 13:08:00 14 /min Samia ey Seybold - External Body height 2022-12-26 13:08:00 167.6 cm Anai S eybold - External Body weight 2022-12-26 13:08:00 93.895 kg Anai S eybold - External BMI 2022-12-26 13:08:00 33.41 kg/m2 Anai S eybold - External Systolic blood 2022-10-31 19:55:00 123 mm[Hg] Anai Seybold - pressure External Diastolic blood 2022-10-31 19:55:00 65 mm[Hg] Kelse y Seybold - pressure External Heart rate 2022-10-31 19:55:00 41 /min Anai S eybold - External Body height 2022-10-31 19:55:00 167.6 cm Anai S eybold - External Body weight 2022-10-31 19:55:00 92.08 kg Anai S eybold - External BMI 2022-10-31 19:55:00 32.77 kg/m2 Anai S eybold - External Body height 2022-10-18 14:07:00 167.6 cm Anai S eybold - External Body weight 2022-10-18 14:07:00 92.08 kg Anai S eybold - External BMI 2022-10-18 14:07:00 32.77 kg/m2 Anai S eybold - External Systolic blood 2022-09-21 16:48:00 116 mm[Hg] Anai Seybold - pressure External Diastolic blood 2022-09-21 16:48:00 65 mm[Hg] Elda y Seybold - pressure External Heart rate 2022-09-21 16:48:00 92 /min Anai S eybold - External Body temperature 2022-09-21 16:48:00 36.61 Tiki Samia ey Seybold - External Respiratory rate 2022-09-21 16:48:00 20 /min Samia ey Seybold - External Body height 2022-09-21 16:48:00 167.6 cm Anai S eybold - External Body weight 2022-09-21 16:48:00 92.534 kg Anai S eybold - External BMI 2022-09-21 16:48:00 32.93 kg/m2 Anai S eybold - External Oxygen saturation in 2022-09-21 16:48:00 98 /min Anai Crowderybbartolome - Arterial blood by External Pulse oximetry Systolic blood 2022-09-07 19:35:00 140 mm[Hg] Anai Seybold - pressure External Diastolic blood 2022-09-07 19:35:00 76 mm[Hg] Rakanse y Seybold - pressure External Heart rate 2022-09-07 19:35:00 [...] External Diastolic blood 2022-07-17 13:57:00 76 mm[Hg] Elda y Seybold - pressure External Heart rate 2022-07-17 13:57:00 84 /min Anai S eybold - External Body temperature 2022-07-17 13:57:00 36.28 Tiki Samia ey Seybold - External Respiratory rate 2022-07-17 13:57:00 14 /min Samia ey Seybold - External Body height 2022-07-17 13:57:00 167.6 cm Anai Trivedi eybold - External Body weight 2022-07-17 13:57:00 95.255 kg Anai S eybold - External BMI 2022-07-17 13:57:00 33.89 kg/m2 Anai S eybold - External Oxygen saturation in 2022-07-17 13:57:00 99 /min Anai Romeoold - Arterial blood by External Pulse oximetry Systolic blood 2022-04-26 13:55:00 136 mm[Hg] Anai Seybold - pressure External Diastolic blood 2022-04-26 13:55:00 74 mm[Hg] Rakanse y Seybold - pressure External [...] Body height 2021-09-15 19:47:00 167.6 cm Anai S eybold Body weight 2021-09-15 19:47:00 91.627 kg Anai S eybold BMI 2021-09-15 19:47:00 32.60 kg/m2 Anai S eybold Procedures This patient has no known procedures. Encounters Start End Encounter Admission Attending Care Care Encounter Source Date/Time Date/Time Type Type Clinicians Facility Department ID 2023-02-22 2023-02-22 Outpatient [facility] ANAI MORGAN [id number] Anai 13:00:00 13:00:00 Get EDVIN Se puente 2023-02-11 2023-02-11 Outpatient ERIKA SUAZO [id number] Anai 09:00:00 09:00:00 Seybol d 2023-01-17 2023-01-17 Outpatient ERIKA SUAZO ANAI [id number] Anai 12:00:00 12:00:00 Seybol d 2023-01-11 2023-01-11 Outpatient PREZAS ANAI MORGAN [id number] Anai 11:45:00 11:45:00 BECCA Seybol d 2023-01-02 2023-01-02 Outpatient PREZAS, ANAI MORGAN [id number] Anai 00:00:00 00:00:00 BECCA Seybol d 2022-12-31 2022-12-31 Outpatient PREZAS, ANAI MORGAN [id number] Anai 00:00:00 00:00:00 BECCA Seybol d 2022-12-27 2022-12-27 Outpatient ANAI MORGAN [id number] Anai 09:00:00 09:00:00 Seybol d 2022-12-27 2022-12-27 Outpatient LAKEISHAERIKA ANAI MORGAN [id number] Anai 09:00:00 09:00:00 Seybol d 2022-12-26 2022-12-26 Outpatient LAB90 ANAI MORGAN [id number] Anai 08:45:00 08:45:00 Seybol d 2022-12-26 2022-12-26 Outpatient PREZASANAI [id number] Anai 08:15:00 08:15:00 BECCA Seybol d 2022-12-13 2022-12-13 Outpatient LAKEISHAERIKA ANAI MORGAN [id number] Anai 13:00:00 13:00:00 Seybol d 2022-12-13 2022-12-13 Outpatient [facility] ANAI MORGAN [id number] Anai 00:00:00 00:00:00 Get EDVIN puente 2022-12-04 2022-12-04 Outpatient PREZASANAI [id number] Anai 00:00:00 00:00:00 BECCA Seybol d 2022-12-03 2022-12-03 Outpatient PREZASANAI [id number] Anai 00:00:00 00:00:00 BECCA Seybol d 2022-11-19 2022-11-19 Outpatient LAKEISHA, ERIKA ANAI ALMANZASEY [id number] Anai 00:00:00 00:00:00 Seybol d 2022-11-19 2022-11-19 Outpatient [facility] ANAI MORGAN [id number] Anai 00:00:00 00:00:00 EDVIN Deutsch Se 2022-11-16 2022-11-16 Outpatient PEBBLES DANIELLE ANAI MORGAN [id number] Anai 09:00:00 09:00:00 Seybol d 2022-11-13 2022-11-13 Outpatient ANAI MORGAN [id number] Anai 11:00:00 11:00:00 Seybol d 2022-11-13 2022-11-13 Outpatient TYRONE ESTRADA ANAI MORGAN [id number] Anai 00:00:00 00:00:00 Seybol d 2022-11-13 2022-11-13 Outpatient ANAI LIRA [id number] Anai 00:00:00 00:00:00 YITZCHAK Seybo ld 2022-11-11 2022-11-11 Outpatient ANAI MARIE [id number] Anai 00:00:00 00:00:00 BECCA Seybol d 2022-11-09 2022-11-09 Outpatient ANAI LIRA [id number] Anai 13:15:00 13:15:00 YITZCHAK Seybo ld 2022-11-09 2022-11-09 Outpatient ANAI MARIE [id number] Anai 00:00:00 00:00:00 BECCA Seybol d 2022-11-08 2022-11-08 Out[facility] [place] ANAI MORGAN [id number] Anai 00:00:00 00:00:00 EDVIN Deutsch Se kwame 2022-11-07 2022-11-07 Outpatient ANAI MARIE [id number] Anai 14:45:00 14:45:00 BECCA Seybol d 2022-11-07 2022-11-07 Outpatient ANAI MARIE [id number] Anai 00:00:00 00:00:00 BECCA Seybol d 2022-11-07 2022-11-07 Outpatient [place] ANAI ANAI [id number] Anai 00:00:00 00:00:00 A, EDVIN Crowder ybold 2022-11-06 2022-11-06 Outpatient ANAI ANAI [id number] Anai 15:00:00 15:00:00 Seybol d 2022-11-06 2022-11-06 Outpatient ANAI ANAI [id number] Anai 14:00:00 14:00:00 Seybol d 2022-11-06 2022-11-06 Outpatient [place] ANAI ANAI [id number] Anai 00:00:00 00:00:00 A, EDVIN Crowder ybold 2022-11-05 2022-11-05 Outpatient ANAI LIRA [id number] Anai 00:00:00 00:00:00 CHARANJIT Romeoo shonda 2022-10-31 2022-10-31 Outpatient [place] ANAI ANAI [id number] Anai 15:30:00 15:30:00 A, EDVIN Crowder ybold 2022-10-31 2022-10-31 Outpatient [place] ANAI ANAI [id number] Anai 15:00:00 15:00:00 A, EDVIN Crowder ybold 2022-10-30 2022-10-30 Outpatient [place] ANAI ANAI [id number] Anai 00:00:00 00:00:00 A, EDVIN Se ybold 2022-10-30 2022-10-30 Outpatient [place] ANAI ANAI [id number] Anai 00:00:00 00:00:00 A, EDVIN Se ybold 2022-10-29 2022-10-29 Outpatient ANAI ANAI [id number] Anai 10:30:00 10:30:00 Seybol d 2022-10-26 2022-10-26 Outpatient RADIOLOGY, ANAI MORGAN [id number] Anai 00:00:00 00:00:00 DEPT Seybol d 2022-10-25 2022-10-25 [facility] ANAI MORGAN [id number] Anai 13:45:00 13:45:00 Seybol d 2022-10-25 2022-10-25 Outpatient PREZANataly, ANAI MORGAN [id number] Anai 00:00:00 00:00:00 BECCA Seybol d 2022-10-25 2022-10-25 Outpatient PREZANataly, ANAI MORGAN [id number] Anai 00:00:00 00:00:00 BECCA Seybol d 2022-10-25 2022-10-25 Outpatient RADIOLOGY, ANAI MORGAN [id number] Anai 00:00:00 00:00:00 DEPT Seybol d 2022-10-24 2022-10-24 Outpatient PREZANataly, ANAI MORGAN [id number] Anai 00:00:00 00:00:00 BECCA Seybol d 2022-10-24 2022-10-24 Outpatient SORAYA, ANAI MORGAN [id number] Anai 00:00:00 00:00:00 YITZCHAK Seybo ld 2022-10-22 2022-10-22 Outpatient CORTEZANAI [id number] Anai 00:00:00 00:00:00 MANSI-MARY Se ybold A 2022-10-19 2022-10-19 Outpatient PREZANataly, ANAI MORGAN [id number] Anai 10:30:00 10:30:00 BECCA Seybol d 2022-10-19 2022-10-19 Outpatient ANAI MORGAN [id number] Anai 10:30:00 10:30:00 Seybol d 2022-10-18 2022-10-18 Outpatient LAB39 ANAI MORGAN [id number] Anai 09:55:00 09:55:00 Seybol d 2022-10-18 2022-10-18 Outpatient ANAI ABREU [id number] Anai 09:15:00 09:15:00 HALLIE Seybol d 2022-10-18 2022-10-18 Outpatient PREZAANAI Trivedi [id number] Anai 00:00:00 00:00:00 BECCA Seybol d 2022-10-08 2022-10-08 Outpatient PREZAS, ANAI MORGAN [id number] Anai 00:00:00 00:00:00 BECCA Seybol d 2022-10-06 2022-10-06 Outpatient PREZAS, ANAI MORGAN [id number] Anai 00:00:00 00:00:00 BECCA Seybol d 2022-10-02 2022-10-02 Outpatient PREZAS, ANAI MORGAN [id number] Anai 00:00:00 00:00:00 BECCA Seybol d 2022-09-21 2022-09-21 Outpatient PREZAS, ANAI MORGAN [id number] Anai 11:00:00 11:00:00 BECCA Seybol d 2022-09-15 2022-09-15 Outpatient PREZAS, AANI MORGAN [id number] Aani 00:00:00 00:00:00 BECCA Seybol d 2022-09-14 2022-09-14 Outpatient ANAI MORGAN [id number] Anai 07:30:00 07:30:00 Seybol d 2022-09-14 2022-09-14 Outpatient PREZAS, ANAI MORGAN [id number] Anai 00:00:00 00:00:00 BECCA Seybol d 2022-09-08 2022-09-08 Outpatient PREZAS, ANAI MORGAN [id number] Anai 00:00:00 00:00:00 BECCA Seybol d 2022-09-07 2022-09-07 Outpatient LAB90 ANAI MORGAN [id number] Anai 14:20:00 14:20:00 Seybol d 2022-09-07 2022-09-07 Outpatient PREZAS, ANAI MORGAN [id number] Anai 13:45:00 13:45:00 BECCA Seybol d 2022-08-14 2022-08-14 Outpatient PREZAS, ANAI MORGAN [id number] Anai 00:00:00 00:00:00 BECCA Seybol d 2022-08-03 2022-08-03 Outpatient PREZAS, ANAI MORGAN [id number] Anai 00:00:00 00:00:00 BECCA Seybol d 2022-07-26 2022-07-26 Outpatient PREZAS, ANAI MORGAN [id number] Anai 08:30:00 08:30:00 BECCA Seybol d 2022-07-17 2022-07-17 Outpatient PREZAS, ANAI MORGAN [id number] Anai 08:00:00 08:00:00 BECCA Seybol d 2022-06-27 2022-06-27 Outpatient LAB90 ANAI MORGAN [id number] Anai 08:30:00 08:30:00 Seybol d 2022-06-26 2022-06-26 Outpatient PREZAS, ANAI MORGAN [id number] Anai 09:00:00 09:00:00 BECAC Seybol d 2022-04-26 2022-04-26 Outpatient PREZAS, ANAI MORGAN [id number] Anai 09:15:00 09:15:00 BECCA Seybol d 2022-04-26 2022-04-26 Outpatient PREZAS, ANAI MORGAN [id number] Anai 08:15:00 08:15:00 BECCA Seybol d 2022-04-09 2022-04-09 Outpatient PREZAS, ANAI MORGAN [id number] Anai 00:00:00 00:00:00 BECCA Seybol d 2022-04-05 2022-04-05 Outpatient PREZAS, ANAI MORGAN [id number] Anai 00:00:00 00:00:00 BECCA Seybol d 2022-04-04 2022-04-04 Outpatient LAB90 ANAI MORGAN [id number] Anai 10:45:00 10:45:00 Seybol d 2022-04-04 2022-04-04 Office PrezaTyler trivedi [id number] Anai 10:15:00 10:30:00 Visit Becca Boyd [id number] Se ybold [id number] 2022-03-30 2022-03-30 Outpatient PREZAS, ANAI MORGAN [id number] Anai 00:00:00 00:00:00 BECCA Seybol d 2022-03-07 2022-03-07 Office PrezasTyler [id number] Anai 11:30:00 12:00:00 Visit Becca Boyd [id number] Se ybold [id number] 2022-03-07 2022-03-07 Outpatient PREZAS, ANAI MORGAN [id number] Anai 00:00:00 00:00:00 BECCA Seybol d 2022-02-23 2022-02-23 Outpatient LAB90 ANAI MORGAN [id number] Anai 08:30:00 08:30:00 Seybol d 2022-02-23 2022-02-23 Outpatient PREZAS, ANAI MORGAN [id number] Anai 00:00:00 00:00:00 BECCA Seybol d 2022-02-05 2022-02-05 Outpatient PREZAS, ANAI MORGAN [id number] Anai 00:00:00 00:00:00 BECCA Seybol d 2022-02-02 2022-02-02 Outpatient PREZAS, ANAI MORGAN [id number] Anai 00:00:00 00:00:00 BECCA Seybol d 2022-02-01 2022-02-01 Outpatient PREZAS, ANAI MORGAN [id number] Anai 00:00:00 00:00:00 BECCA Seybol d 2022-01-25 2022-01-25 Outpatient PREZAS, ANAI MORGAN [id number] Anai 00:00:00 00:00:00 BECCA Seybol d 2022-01-25 2022-01-25 Outpatient PREZAS, ANAI MORGAN [id number] Anai 00:00:00 00:00:00 BECCA Seybol d 2022-01-24 2022-01-24 Office PrezaTyler trivedi [id number] Anai 09:00:00 09:30:00 Visit Becca Boyd 350.1.13.13 Se ybold [id number] [id number] 2022-01-19 2022-01-19 Outpatient PREZAS, ANAI MORGAN [id number] Anai 08:30:00 08:30:00 BECCA Seybol d 2021-12-20 2021-12-20 Outpatient PREZAS ANAI MORGAN [id number] Anai 00:00:00 00:00:00 BECCA Seybol d 2021-12-14 2021-12-14 Outpatient PREZANataly ANAI MORGAN [id number] Anai 00:00:00 00:00:00 BECCA Seybol d 2021-12-08 2021-12-08 Outpatient PREZAS, ANAI MORGAN [id number] Anai 08:00:00 08:00:00 BECCA Seybol d 2021-11-29 2021-11-29 Outpatient PREZAS, ANAI MORGAN [id number] Anai 00:00:00 00:00:00 BECCA Seybol d 2021-11-24 2021-11-24 Office Tyler MARIE [id number] Anai 13:30:00 13:30:00 Visit BECCA Boyd [id number] Se ybold [id number] 2021-11-24 2021-11-24 Outpatient PREZANataly ANAI MORGAN [id number] Anai 09:00:00 09:00:00 BECCA Seybol d 2021-11-21 2021-11-21 Outpatient PREMENDEZ ANAI MORGAN [id number] Anai 00:00:00 00:00:00 BECCA Seybol d 2021-11-20 2021-11-20 Outpatient PREANAI ELMORE [id number] Anai 00:00:00 00:00:00 BECCA Seybol d 2021-11-20 2021-11-20 Outpatient ANAI MENDIETA [id number] Anai 00:00:00 00:00:00 AVA Seybol d 2021-11-16 2021-11-16 Office PreTyler elmore [id number] Anai 08:00:00 08:15:00 Visit Becca Boyd [id number] Se ybold [id number] 2021-11-15 2021-11-15 Outpatient PREZAS, ANAI MORGAN [id number] Anai 00:00:00 00:00:00 BECCA Seybol d 2021-10-31 2021-10-31 Outpatient LAB90 ANAI MORGAN [id number] Anai 10:15:00 10:15:00 Seybol d 2021-10-31 2021-10-31 Office RosanarussellTyler trivedi [id number] Anai 09:45:00 10:00:00 Visit Becca Boyd [id number] Se ybold [id number] 2021-10-30 2021-10-30 Outpatient PREZAS, ANAI MORGAN [id number] Anai 00:00:00 00:00:00 BECCA Seybol d 2021-09-25 2021-09-25 Outpatient PREZAS, ANAI MORGAN [id number] Anai 00:00:00 00:00:00 BECCA Seybol d 2021-09-22 2021-09-22 Outpatient LAB90 ANAI MORGAN [id number] Anai 08:10:00 08:10:00 Seybol d 2021-09-20 2021-09-20 Outpatient PREZANataly, ANAI MORGAN [id number] Anai 00:00:00 00:00:00 BECCA Seybol d 2021-09-18 2021-09-18 Outpatient PREZAS, ANAI MORGAN [id number] Aani 00:00:00 00:00:00 BECCA Seybol d 2021-09-18 2021-09-18 Outpatient PREZAS, ANAI MORGAN [id number] Anai 00:00:00 00:00:00 BECCA Seybol d 2021-09-15 2021-09-15 Office Tyler Marie [id number] Anai 14:45:00 15:30:00 Visit Becca Boyd [id number] Se ybold [id number] Results This patient has no known results.
[2023-01-18] MEDS ORDERED: NA CHLORIDE 0.9% 250 ML ONE (01:24)
[2023-01-18 01:40] LABS: Absolute Lymphocytes (CBC) 0.3 K/uL (0.7-4.9); Hematocrit 30.6 % (39.6-49.0); Lymphocytes % 9.7 % (15.3-44.8); MCV 92.9 fL (80-100); MPV 6.9 fL (7.6-11.3); RBC Red Blood Cell Count 3.29 M/uL (4.33-5.43)
[2023-01-18 01:44] LABS: Protime INR 1.06
[2023-01-18 02:09] LABS: Albumin 3.1 g/dL (3.4-5.0); Bilirubin Direct 0.3 mg/dL (0-0.2); Bilirubin Indirect, Calculated 0.2 mg/dL (0.2-0.8); Bilirubin Total 0.5 mg/dL (0.2-1.0); Magnesium 1.3 mg/dL (1.6-2.4); Potassium 4.1 mEq/L (3.5-5.1); Protein, Total 6.4 g/dL (6.4-8.2); Troponin High Sensitivity 35.5 pg/mL (<58.9)
[2023-01-18 02:27] LABS: Blood Morphology Comment NOT SEEN (NOT SEEN); Platelet Estimate ADEQ; White Blood Cell Scan OK (OK)
[2023-01-18] MEDS ORDERED: MAGNESIUM SULFATE 1 gm IVPB 1 GM/100 ML BAG IV ONE (02:34)
[2023-01-18] MEDS ORDERED: ACETAMINOPHEN 325 MG TABLET ONE (02:38)
[2023-01-18] MEDS ORDERED: CALCIUM GLUCONATE 1 GM IVPB 1 GM/50 ML BAG IV ONE (03:19)
[2023-01-18] MEDS ORDERED: D5W 0 ML IV ONE (04:38)
[2023-01-18] MEDS ORDERED: D10W 250 ML IV ONE (04:41)
--- NOTE | 2023-01-18 05:12 | EDPHYS ---
Physician Documentation [facility] Name: Juan Stringer Age: 77 yrs Sex: Male : 1945 Arrival Date: 01/18/2023 Time: 00:48 Bed 14 Private MD: ED Physician Trae Cunha HPI: 01/18 01:06 This 77 yrs old Male presents to ER via Wheelchair with complaints of Doesn't m Feel Right. 01:06 This is a 77/m with a history of copd, ascites, dm, throat cancer, htn that presents to [facility] the ED with complaints of near syncope, diaphoresis which awoke him from sleep. Patient also complains of headache, right sided neck pain. Denies chest pain, shortness of breath. . 04:54 Patient care assumed from physician orthotics prosthetics assistant at 3 AM. Patient with history of sp4 laryngeal cancer currently managed with radiation therapy by Dr. White with oncology here in [place], he stated diabetes, presents with episode of near syncope, diaphoresis which awoke him from his sleep. Patient also complaining of right-sided neck pain.. 04:54 Past medical history review. Past medical history presents with osteomyelitis, gout, sp4 diabetes type 2, peripheral arterial disease, past medications include Tylenol 3, carvedilol, cetirizine, clotrimazole, Jardiance, furosemide, glipizide, Synthroid, lidocaine, metformin, omeprazole, Paxil, Xarelto, spironolactone, Ellipta, colchicine, minocycline, levofloxacin, prednisone. Patient is being followed by ENT in the radiation oncology.. Historical: - Allergies: 01:24 No Known Allergies; pf1 - PMHx: 01:24 ascites; COPD; Diabetes - NIDDM; Hypertensive disorder; Hypothyroidism; AFIB; throat pf1 Cancer; chemotherapy; - PSHx: 01:24 Cholecystectomy; pf1 - Immunization history:: Adult Immunizations up to date, Last tetanus immunization: < 10 years ago Flu vaccine is up to date. - Social history:: Smoking status: Patient/guardian denies using tobacco, Stopped _ months ago 3 Patient/guardian denies using alcohol, the patient reports quitting approximately [address] drugs. ROS: 01:06 Constitutional: Negative for fever, chills, and weight loss, Cardiovascular: Negative [facility] for chest pain, palpitations, and edema, Respiratory: Negative for shortness of breath, cough, wheezing, and pleuritic chest pain. 01:06 Neuro: Positive for headache, near syncope. 01:06 All other systems are negative. 04:54 Neck: Negative for injury, and swelling, positive for neck pain sp4 Exam: 01:06 Constitutional: This is a well developed, well nourished patient who is awake, alert, jmm and in no acute distress. Head/Face: atraumatic. Eyes: EOMI, no conjunctival erythema appreciated ENT: Moist Mucus Membranes Neck: Trachea midline, Supple Chest/axilla: Normal chest wall appearance and motion. Cardiovascular: Regular rate and rhythm. No edema appreciated Respiratory: Normal respirations, no respiratory distress appreciated Abdomen/GI: Non distended Back: Normal ROM Skin: General appearance color normal MS/ Extremity: Moves all extremities, no obvious deformities appreciated, no edema noted to the lower extremities Neuro: Awake and alert Psych: Behavior is normal, Mood is normal, Patient is cooperative and pleasant Vital Signs: 01:00 BP 129 / 83; Pulse 75; Resp 18; Temp 98.4; Pulse Ox 98% on R/A; Weight 94 kg; Height 5 pf1 ft. 5 in. ; Pain 10/10; 02:00 BP 114 / 81; Pulse 82; Resp 17; Pulse Ox 97% on R/A; pf1 03:00 BP 117 / 74; Pulse 76; Resp 16; Pulse Ox 99% on R/A; pf1 04:00 BP 115 / 79; Pulse 77; Resp 14; Pulse Ox 98% ; Pain 2/10; pf1 05:00 BP 138 / 97; Pulse 83; Resp 18; Temp 98.1(O); Pulse Ox 97% on R/A; Pain 2/10; pf1 01:00 Body Mass Index 34.49 (94.00 kg, 165.1 cm) pf1 01:00 Pain Scale: Adult pf1 04:00 Pain Scale: Adult pf1 05:00 Pain Scale: Adult pf1 MDM: 01:06 Patient medically screened. [facility] 04:54 Differential Diagnosis sepsis, Hypoglycemia,. sp4 04:54 Data reviewed: vital signs, nurses notes, old medical records, lab test result(s), sp4 cardiac enzymes, CBC, electrolytes, hepatic panel, EKG, radiologic studies. ED course: Chest x-ray revealed cardiomegaly with no focal areas of airspace disease. CT head and C-spine revealed no acute intracranial or cervical spine abnormality, asymmetric thickening of the right anterior perilaryngeal soft tissues, given history of supraglottic malignancy correlation with prior exam and recent CT is recommended. 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 Additional chronic and remote findings in the brain and cervical spine as above. 1.8 incidental left thyroid nodule recommend thyroid ultrasound. Multiple pulmonary nodules 4 mm left solid pulmonary nodule and recommended follow-up noncontrast CT at 12 months.. ED course: CT angiography head and neck revealed no evidence of significant stenosis or occlusion involving cervical carotid or vertebral artery. Unremarkable CT angiography of the head with no evidence of significant stenosis aneurysm or occlusion. 7.4 mm extra-axial lesion on right planum sphenoid alley most likely corresponding to meningioma.. ED course: Patient's labs have revealed blood glucose of 57 otherwise normal chemistry panel, mild anemia hemoglobin 10.0 likely as a consequence of chemotherapy normal platelets. Normal liver function panel. Elevated BNP 5678 lactic acid 2.4. Negative troponin 35.5.. 05:03 Consideration of Admission/Observation Patient was admitted/placed on observation. sp4 Escalation of care including admission/observation considered. ED course: Patient was administered D10 IV with blood sugar improvement to 176. Patient has reported improvement. All the imaging today does not reveal any acute emergencies associated with head and neck. There is no evidence of vascular anomaly that is acute or dangerous. There is incidental finding of meningioma. There is incidental finding of left thyroid nodule. Findings consistent with chronic supraglottic malignancy. Also incidental finding of old encephalomalacia with remote left frontal cortical infarct. Mild cardiomegaly. Will provide printed reports to patient's daughter and we will advised follow-up close follow-up with patient's oncologist and ENT and trimmer loader for evaluation of incidental findings.. Will advise close blood sugar monitoring at home. Generous diabetic diet before bedtime to avoid nighttime hypoglycemia.. 01/18 01:11 Order name: Basic Metabolic Panel; Complete Time: 02:10 [facility] 01/18 01:11 Order name: CBC with Diff; Complete Time: 02:29 [facility] 01/18 01:11 Order name: LFT's; Complete Time: 02:10 [facility] 01/18 01:11 Order name: Magnesium; Complete Time: 02:10 [facility] 01/18 01:11 Order name: NT PRO-BNP; Complete Time: 02:10 [facility] 01/18 01:11 Order name: PT-INR; Complete Time: 02:00 [facility] 01/18 01:11 Order name: Troponin HS; Complete Time: 02:10 [facility] 01/18 01:11 Order name: Lactate w/ 2H reflex if indic.; Complete Time: 02:11 [facility] 01/18 01:11 Order name: Blood Culture Adult (2) [facility] 01/18 01:44 Order name: CBC Smear Scan; Complete Time: 02:29 [facility] 01/18 04:17 Order name: Lactate Sepsis 2 HR Follow-up; Complete Time: 04:21 [facility] 01/18 04:58 Order name: Glucose, Ancillary Testing; Complete Time: 05:26 [facility] 01/18 01:11 Order name: XRAY Chest (1 view) [facility] 01/18 01:33 Order name: CT Head C Spine [facility] 01/18 02:11 Order name: CT Head Angio [facility] 01/18 02:11 Order name: CT Neck Angio [facility] 01/18 01:11 Order name: EKG; Complete Time: 01:12 [facility] 01/18 01:11 Order name: Cardiac monitoring; Complete Time: 01:36 [facility] 01/18 01:11 Order name: EKG - Nurse/Tech; Complete Time: 01:11 [facility] 01/18 01:11 Order name: IV Saline Lock; Complete Time: 01:36 [facility] 01/18 01:11 Order name: Labs collected and sent; Complete Time: 01:36 [facility] 01/18 01:11 Order name: O2 Per Protocol; Complete Time: 01:11 [facility] 01/18 01:11 Order name: O2 Sat Monitoring; Complete Time: 01:11 [facility] Administered Medications: 01:38 Drug: NS 0.9% IV 250 ml Route: IV; Rate: bolus; Site: left antecubital; pf1 02:15 Follow up: Response: No adverse reaction; Marked relief of symptoms; IV Status: pf1 Completed infusion; IV Intake: 250ml 02:56 Drug: Acetaminophen PO 650 mg Route: PO; pf1 03:19 Follow up: Response: No adverse reaction; Marked relief of symptoms; Pain is decreased pf1 02:57 Drug: Magnesium Sulfate IVPB 1 grams Route: IVPB; Infused Over: 1 hrs; Site: right hand;pf1 03:57 Follow up: Response: No adverse reaction; Marked relief of symptoms; IV Status: pf1 Completed infusion; IV Intake: 100ml 03:15 Drug: Calcium Gluconate IVPB 1 grams Route: IVPB; Infused Over: 60 mins; Site: left pf1 antecubital; 04:15 Follow up: Response: No adverse reaction; Marked relief of symptoms; IV Status: pf1 Completed infusion; IV Intake: 50ml 04:30 Drug: Dextrose 10 % in Water 250 ml Route: IV; Rate: 250 bolus; Site: right hand; pf1 05:01 Follow up: Response: No adverse reaction; Marked relief of symptoms; IV Status: pf1 Completed infusion; IV Intake: 250ml 04:59 CANCELLED (Physician Discretion): D50W IVP 50 ml IVP once; (1 amp) pf1 Disposition: 05:11 Co-signature as Attending Physician, Trae Cunha MD I agree with the assessment sp4 and plan of care. I reviewed the patient's care provided by Advanced Practice Provider \T\ agree w/ the diagnosis \T\ care plan. I personally saw the pt \T\ performed a substantive portion of the visit, incldng all aspects of the (History/Exam/Medical Decision Making). Disposition Summary: 01/18/23 05:11 Discharge Ordered Location: Home sp4 Problem: new sp4 Symptoms: have improved sp4 Condition: Stable sp4 Diagnosis - Hypoglycemia, unspecified sp4 - Diabetes mellitus due to underlying condition with hypoglycemia sp4 - Supraglottic cancer, head and neck cancer, acute hypoglycemia associated with sp4 diabetic medication, cardiomegaly, thyroid nodule, meningioma, multiple pulmonary nodules - Syncope Near sp4 Followup: sp4 - With: Private Physician - When: 7 - 10 days - Reason: Recheck today's complaints Discharge Instructions: - Discharge Summary Sheet sp4 - Hypoglycemia sp4 Signatures: Dispatcher [employer] EDMS Morgan Ng PA PA jmm Finley, Pamala, RN RN pf1 Trae Cunha MD MD sp4 Corrections: (The following items were deleted from the chart) 04:59 04:22 D50W IVP 50 ml IVP once; (1 amp) ordered. sp4 pf1 04:59 04:37 D50W IVP 50 ml IVP once; (1 amp) ordered. pf1 pf1
--- NOTE | 2023-01-18 05:12 | ER ---
Nurse's Notes [facility] Name: Juan Stringer Age: 77 yrs Sex: Male : 1945 Arrival Date: 01/18/2023 Time: 00:48 Bed 14 Private MD: Diagnosis: Hypoglycemia, unspecified;Diabetes mellitus due to underlying condition with hypoglycemia;Supraglottic cancer, head and neck cancer, acute hypoglycemia associated with diabetic medication, cardiomegaly, thyroid nodule, meningioma, multiple pulmonary nodules;Syncope Near Presentation: 01/18 01:00 Chief complaint: Patient states: posterior head and neck pain,onset tonight at 0000 pf1 Patient's son or daughter states: daughter. 01:00 Coronavirus screen: Vaccine status: Patient reports receiving the 2nd dose of the covid pf1 vaccine. 3 doses of Moderna Client denies travel out of the [place] in the last 14 days. At this time, the client does not indicate any symptoms associated with coronavirus-19. Ebola Screen: Patient negative for fever greater than or equal to 101.5 degrees Fahrenheit, and additional compatible Ebola Virus Disease symptoms. Initial Sepsis Screen: Does the patient meet any 2 criteria? No. Patient's initial sepsis screen is negative. Does the patient have a suspected source of infection? No. Patient's initial sepsis screen is negative. Risk Assessment: Do you want to hurt yourself or someone else? Patient reports no desire to harm self or others. 01:00 Method Of Arrival: Wheelchair pf1 01:00 Acuity: KRISTEL 3 pf1 05:21 Onset of symptoms was January 18, 2023 at 00:00. pf1 Historical: - Allergies: 01:24 No Known Allergies; pf1 - PMHx: 01:24 ascites; COPD; Diabetes - NIDDM; Hypertensive disorder; Hypothyroidism; AFIB; throat pf1 Cancer; chemotherapy; - PSHx: 01:24 Cholecystectomy; pf1 - Immunization history:: Adult Immunizations up to date, Last tetanus immunization: < 10 years ago Flu vaccine is up to date. - Social history:: Smoking status: Patient/guardian denies using tobacco, Stopped _ months ago 3 Patient/guardian denies using alcohol, the patient reports quitting approximately [address] drugs. Screenin:34 [facility] ED Fall Risk Assessment (Adult) History of falling in the last 3 months, pf1 including since admission No falls in past 3 months (0 pts) Confusion or Disorientation No (0 pts) Intoxicated or Sedated No (0 pts) Impaired Gait Yes (1 pt) Mobility Assist Device Used Yes (1 pt) Altered Elimination No (0 pt) Score/Fall Risk Level 0 - 2 = Low Risk Oriented to surroundings, Maintained a safe environment, Educated pt \T\ family on fall prevention, incl call for assistance when getting out of bed, Assessed \T\ reinforced patient's understanding of fall precautions, Provided non-skid footwear, Hourly rounding (assess needs \T\ fall precautionary measures) done, Used ambulatory aids as needed (educated on \T\ assisted with), Used gait belt as appropriate. Abuse screen: Denies threats or abuse. Nutritional screening: No deficits noted. Tuberculosis screening: No symptoms or risk factors identified. Assessment: 01:00 General: Appears in no apparent distress. comfortable, well groomed, well developed, pf1 Behavior is calm, cooperative, appropriate for age, quiet. Pain: Complains of pain in head and neck pain Pain currently is 10 out of 10 on a pain scale. Pain began 2 hours ago. Neuro: Level of Consciousness is awake, alert, obeys commands, Oriented to person, place, time, situation. Cardiovascular: Reports diaphoresis, with weakness Capillary refill < 3 seconds Patient's skin is warm and dry. Respiratory: No deficits noted. Airway is patent Respiratory effort is even, unlabored, Respiratory pattern is regular, symmetrical. GI: Abdomen is round distended, Bowel sounds present X 4 quads. : No deficits noted. No signs and/or symptoms were reported regarding the genitourinary system. EENT: No deficits noted. No signs and/or symptoms were reported regarding the EENT system. Derm: No deficits noted. No signs and/or symptoms reported regarding the dermatologic system. 02:20 Reassessment: Patient appears in no apparent distress at this time. Patient and/or pf1 family updated on plan of care and expected duration. Pain level reassessed. Patient is alert, oriented x 3, equal unlabored respirations, skin warm/dry/pink. Patient attempted to urinate, no urine at this time.. 03:30 Reassessment: Patient appears in no apparent distress at this time. Patient and/or pf1 family updated on plan of care and expected duration. Pain level reassessed. Patient is alert, oriented x 3, equal unlabored respirations, skin warm/dry/pink. Patient states symptoms have improved. 04:30 Reassessment: Patient appears in no apparent distress at this time. Patient and/or pf1 family updated on plan of care and expected duration. Pain level reassessed. Patient is alert, oriented x 3, equal unlabored respirations, skin warm/dry/pink. Patient states feeling better. Patient states symptoms have improved. Vital Signs: 01:00 BP 129 / 83; Pulse 75; Resp 18; Temp 98.4; Pulse Ox 98% on R/A; Weight 94 kg; Height 5 pf1 ft. 5 in. ; Pain 10/10; 02:00 BP 114 / 81; Pulse 82; Resp 17; Pulse Ox 97% on R/A; pf1 03:00 BP 117 / 74; Pulse 76; Resp 16; Pulse Ox 99% on R/A; pf1 04:00 BP 115 / 79; Pulse 77; Resp 14; Pulse Ox 98% ; Pain 2/10; pf1 05:00 BP 138 / 97; Pulse 83; Resp 18; Temp 98.1(O); Pulse Ox 97% on R/A; Pain 2/10; pf1 01:00 Body Mass Index 34.49 (94.00 kg, 165.1 cm) pf1 01:00 Pain Scale: Adult pf1 04:00 Pain Scale: Adult pf1 05:00 Pain Scale: Adult pf1 ED Course: 00:50 Patient arrived in ED. ja2 01:00 Patient has correct armband on for positive identification. Placed in gown. Bed in low pf1 position. Call light in reach. Side rails up X2. 01:00 Arm band placed on right wrist. pf1 01:02 Morgan Ng PA is PHCP. [facility] 01:02 Trae Cunha MD is Attending Physician. [facility] 01:20 No provider procedures requiring assistance completed. Inserted saline lock: 20 gauge pf1 in left antecubital area, using aseptic technique. Blood collected. 01:24 Triage completed. pf1 01:36 Basic Metabolic Panel Sent. pf1 01:36 CBC with Diff Sent. pf1 01:36 LFT's Sent. pf1 01:36 Magnesium Sent. pf1 01:36 NT PRO-BNP Sent. pf1 01:36 PT-INR Sent. pf1 01:36 Troponin HS Sent. pf1 01:36 Lactate w/ 2H reflex if indic. Sent. pf1 01:40 XRAY Chest (1 view) In Process Unspecified. EDMS 01:43 First set of blood cultures drawn by me, Second set of blood cultures drawn by me. jw7 01:45 Inserted saline lock: 22 gauge in right hand, using aseptic technique. vc1 02:10 CT Head C Spine In Process Unspecified. EDMS 02:31 Rosalee Mckay, RN is Primary Nurse. pf1 02:46 CT Head Angio In Process Unspecified. EDMS 02:46 CT Neck Angio In Process Unspecified. EDMS 05:15 IV discontinued, intact, bleeding controlled, No redness/swelling at site. Pressure pf1 dressing applied, from right hand and LAC. Administered Medications: 01:38 Drug: NS 0.9% IV 250 ml Route: IV; Rate: bolus; Site: left antecubital; pf1 02:15 Follow up: Response: No adverse reaction; Marked relief of symptoms; IV Status: pf1 Completed infusion; IV Intake: 250ml 02:56 Drug: Acetaminophen PO 650 mg Route: PO; pf1 03:19 Follow up: Response: No adverse reaction; Marked relief of symptoms; Pain is decreased pf1 02:57 Drug: Magnesium Sulfate IVPB 1 grams Route: IVPB; Infused Over: 1 hrs; Site: right hand;pf1 03:57 Follow up: Response: No adverse reaction; Marked relief of symptoms; IV Status: pf1 Completed infusion; IV Intake: 100ml 03:15 Drug: Calcium Gluconate IVPB 1 grams Route: IVPB; Infused Over: 60 mins; Site: left pf1 antecubital; 04:15 Follow up: Response: No adverse reaction; Marked relief of symptoms; IV Status: pf1 Completed infusion; IV Intake: 50ml 04:30 Drug: Dextrose 10 % in Water 250 ml Route: IV; Rate: 250 bolus; Site: right hand; pf1 05:01 Follow up: Response: No adverse reaction; Marked relief of symptoms; IV Status: pf1 Completed infusion; IV Intake: 250ml 04:59 CANCELLED (Physician Discretion): D50W IVP 50 ml IVP once; (1 amp) pf1 Medication: 05:20 VIS not applicable for this client. pf1 Intake: 02:15 IV: 250ml; Total: 250ml. pf1 03:57 IV: 100ml; Total: 350ml. pf1 04:15 IV: 50ml; Total: 400ml. pf1 05:01 IV: 250ml; Total: 650ml. pf1 Outcome: 05:11 Discharge ordered by . sp4 05:20 Discharged to home via wheelchair, with family. pf1 05:20 Condition: improved 05:20 Discharge instructions given to patient, family, Instructed on discharge instructions, follow up and referral plans. Demonstrated understanding of instructions, follow-up care. 05:22 Patient left the ED. pf1 Signatures: Dispatcher [employer] EDMS Morgan Ng PA PA jmm Alexander, Jessica ja2 Calcote, Vanessa, RN RN vc1 Vani Sanchez7 Rosalee Mckay RN RN pf1 Trae Cunha MD MD sp4
[2023-01-18 06:09] VITALS: BP 138/97; TEMP 98.1; O2SAT 97
--- NOTE | 2023-01-18 11:01 | RAD REPORT ---
EXAM DESCRIPTION: CT - Head angio - 01/18/2023 5:41 am CLINICAL HISTORY: 77 years, Male, HEADACHE COMPARISON: Previous CT scan of the head without contrast. TECHNIQUE: Multiple transaxial tomograms from the aortic arch through the brain were performed after administration of large bolus of IV contrast for complete opacification of the carotid arteries and intracranial vessels. Subsequent 2-D and 3-D multiplanar reformats, volume rendering technique and maximum intensity projec tion images were generated and reviewed. Stenosis measurements were performed according to NASCET kaci sanford. CAROTID STENOSIS REFERENCE USING NASCET CRITERIA: % ICA stenosis = (1 - narrowest ICA diameter/diameter of distal cervical ICA) x 100. Mild - <50% stenosis. Moderate - 50-69% stenosis. Severe - 70-94% stenosis. Near occlusion - 95-99% stenosis. Occluded - 100% stenosis. This exam was performed according to our departmental dose-optimization protocol, which includes auto mated exposure control, adjustment of the mA and/or kV according to patient size and/or use of iterat bradford reconstruction technique. FINDINGS: Ascending aorta: There is a normal branching pattern of the great vessels off the arch. There is intimal aortic arch calcification and minimal cortication of the origin of the great vessels . No great vessel origin stenosis is identified. There are codominant vertebral arteries which demons trate normal opacification. Right carotid artery: Normal opacification is demonstrated within the right common carotid artery a nd at the carotid bifurcation. The right carotid bulb demonstrate peripheral atheromatous plaque exte nding into the origin of the right ICA with less than 40% stenosis. The proximal, mid and distal port ions of the right internal carotid artery demonstrate to be patent. There is no evidence for signific ant stenosis and/or occlusion. Left carotid artery: Normal opacification is demonstrated within the left common carotid artery an d at the carotid bifurcation. There is minimal atheromatous plaque with no evidence for significant s tenosis. The left carotid bulb demonstrate peripheral atheromatous plaque extending into the origin o f the right ICA with less than 30% stenosis. The proximal, mid and distal portions of the left software development intern al carotid artery demonstrate to be patent. There is no evidence for significant stenosis and/or occl usion. Intracranial circulation: Intracranial portions of the internal carotid arteries the cavernous sinus portions demonstrates peripheral atheromatous plaque formation with no evidence for significant steno sis and/or aneurysm. The anterior cerebral arteries, middle cerebral arteries and its branches demo nstrate normal opacification with no evidence for significant stenosis aneurysm and/or occlusion. The re is origin of the left COUNTER MAKER. There is normal venous drainage with no evidence for significant sinus vein thrombosis. Vertebrobasilar system: The posterior circulation demonstrate codominant bilateral vertebral arteries with no evidence for significant stenosis and/or evidence for significant dissection. The vertebroba silar system and COUNTER MAKER demonstrate to be normal with no evidence for aneurysm and/or occlusion. Grossly the brain parenchyma demonstrate normal wolfe-white matter differentiation with no evidence fo r mass effect and/or midline shift. No evidence for abnormal parenchymal enhancement. The skull base and intracranial structures demonstrate to be within normal limits. There is a extra-a xial calcified lesion within the right planum sphenoidale measuring 7.4 mm, most likely corresponding to a meningioma Lung apex: The lung apices demonstrate minimal centrilobular emphysematous changes. IMPRESSION: No evidence for significant stenosis and/or occlusion involving the cervical carotid or vertebral arteries. Unremarkable CTA of the head with no evidence for significant stenosis, aneurysm, and/or occlusion. 7.4 mm extra-axial calcified lesion within the right planum sphenoidale, most likely corresponding to a meningioma. Electronically signed by: Jelani Ashton MD 01/18/2023 3:12 AM CDT Due to temporary technical issues with the PACS/Fluency reporting system, reports are being signed by the in house radiologist without review as a courtesy to ensure prompt reporting. The interpreting r adiologist is fully responsible for the content of the report.
--- NOTE | 2023-01-18 11:49 | RAD REPORT ---
EXAM DESCRIPTION: CT - Neck Angio - 01/18/2023 5:41 am CLINICAL HISTORY: 77 years, Male, HEADACHE COMPARISON: Previous CT scan of the head without contrast. TECHNIQUE: Multiple transaxial tomograms from the aortic arch through the brain were performed after administration of large bolus of IV contrast for complete opacification of the carotid arteries and intracranial vessels. Subsequent 2-D and 3-D multiplanar reformats, volume rendering technique and maximum intensity projec tion images were generated and reviewed. Stenosis measurements were performed according to NASCET kaci sanford. CAROTID STENOSIS REFERENCE USING NASCET CRITERIA: % ICA stenosis = (1 - narrowest ICA diameter/diameter of distal cervical ICA) x 100. Mild - <50% stenosis. Moderate - 50-69% stenosis. Severe - 70-94% stenosis. Near occlusion - 95-99% stenosis. Occluded - 100% stenosis. This exam was performed according to our departmental dose-optimization protocol, which includes auto mated exposure control, adjustment of the mA and/or kV according to patient size and/or use of iterat bradford reconstruction technique. FINDINGS: Ascending aorta: There is a normal branching pattern of the great vessels off the arch. There is intimal aortic arch calcification and minimal cortication of the origin of the great vessels . No great vessel origin stenosis is identified. There are codominant vertebral arteries which demons trate normal opacification. Right carotid artery: Normal opacification is demonstrated within the right common carotid artery a nd at the carotid bifurcation. The right carotid bulb demonstrate peripheral atheromatous plaque exte nding into the origin of the right ICA with less than 40% stenosis. The proximal, mid and distal port ions of the right internal carotid artery demonstrate to be patent. There is no evidence for signific ant stenosis and/or occlusion. Left carotid artery: Normal opacification is demonstrated within the left common carotid artery an d at the carotid bifurcation. There is minimal atheromatous plaque with no evidence for significant s tenosis. The left carotid bulb demonstrate peripheral atheromatous plaque extending into the origin o f the right ICA with less than 30% stenosis. The proximal, mid and distal portions of the left post graduate intern al carotid artery demonstrate to be patent. There is no evidence for significant stenosis and/or occl usion. Intracranial circulation: Intracranial portions of the internal carotid arteries the cavernous sinus portions demonstrates peripheral atheromatous plaque formation with no evidence for significant steno sis and/or aneurysm. The anterior cerebral arteries, middle cerebral arteries and its branches demo nstrate normal opacification with no evidence for significant stenosis aneurysm and/or occlusion. The re is origin of the left INVESTIGATIONS CONSULTANT. There is normal venous drainage with no evidence for significant sinus vein thrombosis. Vertebrobasilar system: The posterior circulation demonstrate codominant bilateral vertebral arteries with no evidence for significant stenosis and/or evidence for significant dissection. The vertebroba silar system and INVESTIGATIONS CONSULTANT demonstrate to be normal with no evidence for aneurysm and/or occlusion. Grossly the brain parenchyma demonstrate normal wolfe-white matter differentiation with no evidence fo r mass effect and/or midline shift. No evidence for abnormal parenchymal enhancement. The skull base and intracranial structures demonstrate to be within normal limits. There is a extra-a xial calcified lesion within the right planum sphenoidale measuring 7.4 mm, most likely corresponding to a meningioma Lung apex: The lung apices demonstrate minimal centrilobular emphysematous changes. IMPRESSION: No evidence for significant stenosis and/or occlusion involving the cervical carotid or vertebral arteries. Unremarkable CTA of the head with no evidence for significant stenosis, aneurysm, and/or occlusion. 7.4 mm extra-axial calcified lesion within the right planum sphenoidale, most likely corresponding to a meningioma. Electronically signed by: Jelani Ashton MD 01/18/2023 3:12 AM CDT Due to temporary technical issues with the PACS/Fluency reporting system, reports are being signed by the in house radiologist without review as a courtesy to ensure prompt reporting. The interpreting r adiologist is fully responsible for the content of the report.
--- NOTE | 2023-01-18 11:51 | RAD REPORT ---
EXAM DESCRIPTION: CT - Head C Spine Mpr Wo Con - 01/18/2023 5:40 am CLINICAL HISTORY: The patient is 77 years old and is Male; headache, neck pain [facility] MAIN TECHNIQUE: Axial computed tomography images of the head/brain and cervical spine without intravenous contrast. Sagittal and coronal reformatted images were created and reviewed. This CT exam was pe rformed using one or more of the following dose reduction techniques: automated exposure control, a djustment of the mA and/or kV according to patient size, and/or use of iterative reconstruction techn ique. COMPARISON: No relevant prior studies available. 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 Tiny calcified meningioma incidentally noted along the right orbital surface (coronal image 2 ). Moderate periventricular and deep white matter microangiopathic changes. Mild to moderate global cerebral atrophy with commensurate sulcal and ventricular enlargement , not greater than expected for patient age. No extra-axial fluid collection. No intracranial hemorrhage. No acute wolfe-white matter differentiation abnormality. MIDLINE SHIFT: No midline shift. VENTRICLES: See above. SKULL: See below. SINUSES: Partial opacification of the left sphenoid sinus and bilateral ethmoid air cell mucosal th ickening. MASTOID AIR CELLS: Suspected trace left mastoid air cell effusion versus volume averaging artifact. ORBITS: Bilateral lens replacements. VERTEBRAE: Multilevel cervical spondylosis with focal degenerative disc changes greatest at C6-7, a nd multilevel partial facet fusion, greatest in the right C4-5 level. No vertebral body height loss. Dens is intact. No fracture or subluxation. No dislocation. DISCS/SPINAL CANAL/NEURAL FORAMINA: No transtentorial herniation. No significant spinal canal stenosis. OTHER BONES/JOINTS: Unremarkable as visualized. No fracture of the calvarium or visualized facial bones. SOFT TISSUES: Asymmetric thickening of the right anterior, perilaryngeal soft tissues. VASCULATURE: Intracranial and right greater than left carotid vascular calcifications. THYROID: Partially calcified 1.8 cm left thyroid lobe nodule. LUNG APICES: Noncalcified subpleural nodules in the partially visualized left apex, with largest me asuring at least 0.4 cm. Mild emphysematous changes. OTHER FINDINGS: Craniocervical orientation is normal. IMPRESSION: 1. No acute intracranial or cervical spine abnormality. 2. Asymmetric thickening of the right anterior, perilaryngeal soft tissues. Given history of suprag lottic malignancy, correlation with prior exams and recent contrast-enhanced soft tissue neck CT tobi mmended. 3. 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 4. Additional chronic and remote findings of the brain and cervical spine as above. 5. 1.8 cm incidental left thyroid nodule. Recommend thyroid US. Reference: J Am Tonia Radiol. 2015 Aug;12(2): 143-50 6. Multiple pulmonary nodules. Most severe: 4 mm left solid pulmonary nodule within the upper lobe. If patient is low risk for malignancy, no routine follow-up imaging is recommended; if patient is hi gh risk for malignancy, a non-contrast Chest CT at 12 months is optional. If performed and the nodule is stable at 12 months, no further follow-up is recommended. These guidelines do not apply to immunocompromised patients and patients with cancer. Follow up in pa tients with significant comorbidities as clinically warranted. For lung cancer screening, adhere to L freddie-RADS guidelines. Reference: Radiology. 2017; 284(1):228-43. Electronically signed by: Jay Estes MD 01/18/2023 2:54 AM CDT Due to temporary technical issues with the PACS/Fluency reporting system, reports are being signed by the in house radiologist without review as a courtesy to ensure prompt reporting. The interpreting r adiologist is fully responsible for the content of the report.
--- NOTE | 2023-01-18 11:52 | RAD REPORT ---
EXAM DESCRIPTION: RAD - Chest Single View - 01/18/2023 1:38 am CLINICAL HISTORY: 77 years, Male, SOB COMPARISON: None FINDINGS: Single view of the chest was obtained portable. No prior films are available for compariso n. External EKG leads within the [id number] limits diagnosis. The heart is prominent. Thoracic aor ta is mildly tortuous. Pulmonary vasculature is normal distribution. Costophrenic angles are sharp. No areas of consolidation or masses are seen. The rest of the soft tissue and bony structures demo nstrate to be unremarkable. IMPRESSION: Mild cardiomegaly. No focal areas of acute airspace disease. Electronically signed by: Jelani Ashton MD 01/18/2023 2:06 AM CDT Due to temporary technical issues with the PACS/Fluency reporting system, reports are being signed by the in house radiologist without review as a courtesy to ensure prompt reporting. The interpreting r adiologist is fully responsible for the content of the report.
--- NOTE | 2023-01-18 16:28 | EKG ---
Test Date: 2023-01-18 Test Time: 01:07:35 It Consultant: RUDY MEASUREMENT RESULTS: Intervals: Rate: 81 MI: QRSD: 154 QT: 434 QTc: 504 [place]: P: MI: QRS: 53 T: 249 INTERPRETIVE STATEMENTS: Atrial fibrillation Left bundle branch block Abnormal ECG No previous ECG available for comparison Electronically Signed On 01-18-23 16:27:16 CDT by Nghia Silverman
== END 2023-01-18 05:22 | disposition home or self-care (01) ==
LOC: ER 00:48
DX: E11.649 Type 2 diabetes mellitus with hypoglycemia without coma (principal); E16.0 Drug-induced hypoglycemia without coma; C32.1 Malignant neoplasm of supraglottis; C76.0 Malignant neoplasm of head, face and neck; I51.7 Cardiomegaly; E04.1 Nontoxic single thyroid nodule; R91.8 Other nonspecific abnormal finding of lung field; D32.9 Benign neoplasm of meninges, unspecified; I10 Essential (primary) hypertension; J44.9 Chronic obstructive pulmonary disease, unspecified; I48.91 Unspecified atrial fibrillation; Z79.01 Long term (current) use of anticoagulants
CPT/HCPCS: 93005; 87040 ×2; 85025; 80048; 36415; 83735; 85610; 82947; 80076; 83605 ×2; 84484; 83880; 70450; 72125; 70496; 70498; 71045; 99284; Q9967; J3475; J0610; J7050; J0612

== ENCOUNTER 2023-01-22 10:18 | Inpatient (IN) | payer OTHER ==
--- OUTSIDE RECORDS SUMMARY | 2023-01-22 10:51 | XMS REPORT | Continuity of Care Document ---
:1945 Author Organization [facility] t Address [address] [facility]. 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 00 Exte rna fibrillati fibrillati l on on 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 00:00: - failure, failure, 00 Detail Assembler a unspecifie unspecifie l d heart 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 00:00: - 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 00 Exte rna fibrillati fibrillati l on on 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 l Obesity Obesity Disease Active Ania (BMI (BMI 2-18 Seybold 30.0-34.9) 30.0-34.9) 00:00: [...] of tobacco Cigarette Smoker Anai Nieto use - External Gender identity Anai Crowder ybold - External Sexual orientation Anai Nieto - External Alcohol intake 2023-01-11 2023-01-11 Ex-drinker Anai tran 00:00:00 00:00:00 (finding) - External History of Social 2022-10-31 2022-10-31 Anai Emilia function 00:00:00 00:00:00 - External Cigarettes smoked 2022-10-31 2022-10-31 Anai harperbartolome current (pack per 00:00:00 00:00:00 - Exter nal day) - Reported Cigarette 2022-10-31 2022-10-31 Anai Seharperbartolome pack-years 00:00:00 00:00:00 - External Tobacco use and 2022-10-31 2022-10-31 Smokeless tobacco Ke stephany Nieto exposure 00:00:00 00:00:00 non-user - External Education 2021-09-15 2021-09-15 5 Anai Seharperbartolome 00:00:00 00:00:00 - External Sex [birth year] Anai puente 00:00:00 00:00:00 - External Smoking Status Start Date Stop Date Source Ex-smoker 2022-10-31 00:00:00 2022-10-31 00:00:00 Anaizulma farleyboshonda - External Smokes tobacco daily 2021-09-15 00:00:00 Anai Nieto - External Medications Ordered Filled Start Stop Current Ordering Indication Dosage Frequency Signature Comments Components Source Medication Medication Date Date Medication? Clinician (SIG) Name Name Bao Yes [id number] Inhale 1 Anai m Bolton 6-16 inhalation Seyb old (Incruse 11:34: into the - Ellipta) 54 lungs Externa 62.5 daily l MCG/INH inhalation AEROSOL POWDER, BREATH ACTIVATED Lidocaine 5 Yes Apply 1 Rakan sey % apply 6-16 applicatio Seybol d externally 11:34: n - Ointment 54 topically Detail Assembler a as needed l Omeprazole Yes every 24 Rakan sey 20 MG oral 6-16 hours Seybold Delayed 11:34: - Release 54 Externa Capsule l Paroxetine Yes every 24 Rakan sey HCl 20 MG 6-16 hours Seybold oral Tablet 11:34: - 54 Externa l Insulin Yes [id number] 2 units if Anai Aspart 6-05 blood Seybold (NovoLOG 00:00: sugar is - FlexPen) 00 250-299, 4 Exter na 100 UNIT/ML units if l subcutaneou blood s Solution sugar is Pen-injecto 300-350, 6 r units if blood sugar is 351-399, 8 units if blood sugar is above 400; Max dose of 25 units per day Umeclidiniu 3-0 Yes [id number] Inhale 1 Anai quiros [place] 5-31 inhalation Seyb old (Incruse 08:13: into the - Ellipta) 15 lungs Externa 62.5 daily l MCG/INH inhalation AEROSOL POWDER, BREATH ACTIVATED Lidocaine 5 2022-0 Yes Apply 1 Rakan sey % apply 5- applicatio Seybol d externally 08:13: n - Ointment 15 topically Detail Assembler a as needed l Omeprazole 3-0 Yes every 24 Rakan sey 20 MG oral 5-31 hours Seybold Delayed 08:13: - Release 15 Externa Capsule l Paroxetine 3-0 Yes every 24 Rakan sey HCl 20 MG 5-31 hours Seybold oral Tablet 08:13: - 15 Externa l Umeclidiniu 3-0 Yes [id number] Inhale 1 Anai quiros [place] 5-31 inhalation Seyb old (Incruse 08:13: into the - Ellipta) 15 lungs Externa 62.5 daily l MCG/INH inhalation AEROSOL POWDER, BREATH ACTIVATED Lidocaine 2022-0 Yes Apply 1 Rakan sey % apply - applicatio Seybol d externally 08:13: n - Ointment 15 topically Detail Assembler a as needed l Omeprazole 3-0 Yes every 24 Rakan sey 20 MG oral 5-31 hours Seybold Delayed 08:13: - Release 15 Externa Capsule l Paroxetine 3-0 Yes every 24 Rakan sey HCl 20 MG 5-31 hours Seybold oral Tablet 08:13: - 15 Externa l Insulin 3-0 Yes [id number] 10 units Ke lsey Detemir 5-31 sc daily Seybold (Levemir 00:00: - FlexPen) 00 Externa 100 UNIT/ML l subcutaneou s Solution Pen-injecto r Insulin 3-0 Yes [id number] 2 units if Anai Aspart 5-31 blood Seybold (NovoLOG 00:00: sugar is - FlexPen) 00 250-2994 Externa 100 UNIT/ML units if l subcutaneou blood s Solution sugar is Pen-injecto 300-3506 r units if blood sugar is 351-3998 units if blood sugar is above 400Max dose of 25 units per day Furosemide Yes [id number] 40mg QD Take 1 Anai (Lasix) 40 5-31 tablet (40 Sey bold MG oral 00:00: mg total) - Tablet 00 by mouth Externa daily as l needed Insulin Yes [id number] 10 units Ke lsey Detemir 5-31 sc daily Seybold (Levemir 00:00: - FlexPen) 00 Externa 100 UNIT/ML l subcutaneou s Solution Pen-injecto r Insulin Yes [id number] 2 units if Anai Aspart 5-31 blood Seybold (NovoLOG 00:00: sugar is - FlexPen) 00 250-2994 Externa 100 UNIT/ML units if l subcutaneou blood s Solution sugar is Pen-injecto 300-3506 r units if blood sugar is 351-3998 units if blood sugar is above 400Max dose of 25 units per day Furosemide Yes [id number] 40mg QD Take 1 Anai (Lasix) 40 5-31 tablet (40 Sey bold MG oral 00:00: mg total) - Tablet 00 by mouth Externa daily as l needed Insulin Yes [id number] 10 units Ke lsey Detemir 5-31 sc daily Seybold (Levemir 00:00: - FlexPen) 00 Externa 100 UNIT/ML l subcutaneou s Solution Pen-injecto r Furosemide Yes [id number] 40mg QD Take 1 Anai (Lasix) 40 [...] FOR Externa oral PAIN. l Solution Dexamethaso 0 Yes TAKE 2 Samia ey ne 5-15 [...] Externa DISPERSIBLE 6 HOURS l NEEDED Dexamethaso 0 Yes TAKE 2 Samia ey ne 5-15 TABLETS BY Seybold (DECADRON) 00:00: MOUTH - 4 MG oral 00 TWICE Externa tablet DAILY FOR l 2 DAYS THEN TWICE DAILY FOR 1 DAY. START THE DAY AFTER EACH CHEMO TREATMENT Ondansetron 0 Yes DISSOLVE 1 Anai (ZOFRAN) 4 5-15 TABLET ON Seyb old MG oral 00:00: THE TONGUE - TABLET 00 EVERY 4 TO Externa DISPERSIBLE 6 HOURS l NEEDED Dexamethaso 2022-0 Yes TAKE 2 Samia ey ne 5-15 TABLETS BY Seybold (DECADRON) 00:00: MOUTH - 4 MG oral 00 TWICE Externa tablet DAILY FOR l 2 DAYS THEN TWICE DAILY FOR 1 DAY. START THE DAY AFTER EACH CHEMO TREATMENT Ondansetron 0 Yes DISSOLVE 1 Anai (ZOFRAN) 4 5-15 TABLET ON Seyb old MG oral 00:00: THE TONGUE - TABLET 00 EVERY 4 TO Externa DISPERSIBLE 6 HOURS l NEEDED Citalopram Yes [id number] TAKE 1 K elsey Hydrobromid 5-09 TABLET(10 Sey bold e 10 MG 00:00: MG) BY - oral Tablet 00 MOUTH Externa DAILY l Benadryl, 0 Yes SWALLOW 5 Rakan sey Maalox, 5-09 TO 10 ML Seybold Lidocaine 00:00: BEFORE - Viscous HCl 00 MEALS AND Ext lalitha (Magic EVERY l Mouthwash-E NIGHT AT qual Ratio) BEDTIME Citalopram 2022-0 Yes [id number] TAKE 1 K elsey Hydrobromid 5-09 TABLET(10 Sey bold e 10 MG 00:00: MG) BY - oral Tablet 00 MOUTH Externa DAILY l Benadryl, 2022-0 Yes SWALLOW 5 Rakan sey Maalox, 5-09 TO 10 ML Seybold Lidocaine 00:00: BEFORE - Viscous HCl 00 MEALS AND Ext lalitha (Magic EVERY l Mouthwash-E NIGHT AT qual Ratio) BEDTIME Citalopram 2022-0 Yes [id number] TAKE 1 K elsey Hydrobromid 5-09 TABLET(10 Sey bold e 10 MG 00:00: MG) BY - oral Tablet 00 MOUTH Externa DAILY l Benadryl, 2022-0 Yes SWALLOW 5 Rakan sey Maalox, 5-09 TO 10 ML Seybold Lidocaine 00:00: BEFORE - Viscous HCl 00 MEALS AND Ext allitha (Magic EVERY l Mouthwash-E NIGHT AT qual Ratio) BEDTIME Spironolact 2022-0 Yes [id number] TAKE 1 Anai one 25 MG 5-08 TABLET(25 Seybo ld oral Tablet 00:00: MG) BY - 00 MOUTH Externa DAILY l Levothyroxi 2022-0 Yes [id number] TAKE 1 Anai ne Sodium 5-08 TABLET(112 Seyb old 112 MCG 00:00: MCG) BY - oral Tablet 00 MOUTH Externa EVERY l MORNING ON AN EMPTY STOMACH Spironolact 3-0 Yes [id number] TAKE 1 Anai one 25 MG 5-08 TABLET(25 Seybo ld oral Tablet 00:00: MG) BY - 00 MOUTH Externa DAILY l Levothyroxi 3-0 Yes [id number] TAKE 1 Anai ne Sodium 5-08 TABLET(112 Seyb old 112 MCG 00:00: MCG) BY - oral Tablet 00 MOUTH Externa EVERY l MORNING ON AN EMPTY STOMACH Spironolact 3-0 Yes [id number] TAKE 1 Anai one 25 MG 5-08 TABLET(25 Seybo ld oral Tablet 00:00: MG) BY - 00 MOUTH Externa DAILY l Levothyroxi 3-0 Yes [id number] TAKE 1 Anai ne Sodium 5-08 TABLET(112 Seyb old 112 MCG 00:00: MCG) BY - oral Tablet 00 MOUTH Externa EVERY l MORNING ON AN EMPTY STOMACH Metformin 2022-0 Yes [id number] TAKE 1 Ke lsey HCl 1000 MG 4-16 TABLET(100 Se ybold oral Tablet 00:00: 0 MG) BY - 00 MOUTH IN Externa THE l MORNING AND IN THE EVENING WITH MEALS Metformin 2022-0 Yes [id number] TAKE 1 Ke lsey HCl 1000 MG 4-16 TABLET(100 Se ybold oral Tablet 00:00: 0 MG) BY - 00 MOUTH IN Externa THE l MORNING AND IN THE EVENING WITH MEALS Metformin 2022-0 Yes [id number] TAKE 1 Ke lsey HCl 1000 MG 4-16 TABLET(100 Se ybold oral Tablet 00:00: 0 MG) BY - 00 MOUTH IN Externa THE l MORNING AND IN THE EVENING WITH MEALS Benzocaine- 2022-0 Yes [id number] Suck on 1 Anai Menthol 4-12 lozenge Seybold (Cepacol 00:00: every 2 - Sore 00 hours as Externa Throat) needed for l 15-3.6 MG sore mouth/throa throat t Lozenge Oxycodone 2022-0 Yes [id number] 30{tbl} Q.[id number] Take 30 Anai HCl 10 MG 4-12 [id number] tablets by Seybold oral Tablet 00:00: 3D mouth 3 - 00 times Externa daily as l needed Benzocaine- 2022-0 Yes [id number] Suck on 1 Anai Menthol 4-12 lozenge Seybold (Cepacol 00:00: every 2 - Sore 00 hours as Externa Throat) needed for l 15-3.6 MG sore mouth/throa throat t Lozenge Oxycodone 2022-0 Yes [id number] 30{tbl} Q.[id number] Take 30 Anai HCl 10 MG 4-12 [id number] tablets by Seybold oral Tablet 00:00: 3D mouth 3 - 00 times Externa daily as l needed Benzocaine- 2022-0 Yes [id number] Suck on 1 Anai Menthol 4-12 lozenge Seybold (Cepacol 00:00: every 2 - Sore 00 hours as Externa Throat) needed for l 15-3.6 MG sore mouth/throa throat t Lozenge Oxycodone 2023-0 Yes [id number] 30{tbl} Q.[id number] Take 30 Anai HCl 10 MG 4-12 [id number] tablets by Seybold oral Tablet 00:00: 3D mouth 3 - 00 times Externa daily as l needed Tramadol 2022-0 Yes [id number] 50mg Q.25D Take 1 K elsey HCl 4-06 tablet (50 Seybold (ULTRAM) 50 00:00: mg total) - MG oral 00 by mouth Externa Tablet every 6 l hours as needed for pain Umeclidiniu 0 Yes [id number] Inhale 1 Anai m [place] 4-05 inhalation Seyb old (Incruse 14:58: into the - Ellipta) 44 lungs Externa 62.5 daily l MCG/INH inhalation AEROSOL POWDER, BREATH ACTIVATED Lidocaine Yes Apply 1 Rakan sey % apply 4-05 applicatio Seybol d externally 14:58: n - Ointment 44 topically Detail Assembler a as needed l methylPREDN 2022-0 Yes [id number] 1{dave} Take 1 dave Anai ISolone 4-05 by mouth Seybold (Medrol) 4 00:00: See Admin - MG oral 00 Instructio Detail Assembler a Tablet ns Use as l Therapy directed. Pack methylPREDN 2022-0 Yes [id number] 1{dave} Take 1 dave Anai ISolone 4-05 by mouth Seybold (Medrol) 4 00:00: See Admin - MG oral 00 Instructio Detail Assembler a Tablet ns Use as l Therapy directed. Pack methylPREDN 2022-0 Yes [id number] 1{dave} Take 1 dave Anai ISolone 4-05 by mouth Seybold (Medrol) 4 00:00: See Admin - MG oral 00 Instructio Detail Assembler a Tablet ns Use as l Therapy directed. Pack methylPREDN 2022-0 Yes [id number] 1{dave} Take 1 dave Anai ISolone 4-05 by mouth Seybold (Medrol) 4 00:00: See Admin - MG oral 00 Instructio Detail Assembler a Tablet ns Use as l Therapy directed. Pack Tramadol 2022-0 Yes [id number] 50mg QD Take 1 Ke lsey HCl 3-30 tablet (50 Seybold (ULTRAM) 50 00:00: mg total) - MG oral 00 by mouth Externa Tablet daily as l needed for pain Umeclidiniu Yes [id number] Inhale 1 Anai m [place] 3- inhalation Seyb old (Incruse 09:08: into the - Ellipta) 57 lungs Externa 62.5 daily l MCG/INH inhalation AEROSOL POWDER, BREATH ACTIVATED Lidocaine 5 Yes Apply 1 Rakan sey % apply 10-18 applicatio Seybol d externally 09:08: n - Ointment 57 topically Detail Assembler a as needed l Roflumilast Yes 1{tbl} [...] 00 daily Externa l glipiZIDE 0 Yes [id number] 10mg Take 1 Ke lsey 10 MG oral 3-13 tablet (10 Sey bold Tablet 00:00: mg total) - 00 by mouth 2 Externa times l daily glipiZIDE Yes [id number] 10mg Take 1 Ke lsey 10 MG oral 3-13 tablet (10 Sey bold Tablet 00:00: mg total) - 00 by mouth 2 Externa times l daily glipiZIDE 0 Yes [id number] 10mg Take 1 Ke lsey 10 MG oral 3-13 tablet (10 Sey bold Tablet 00:00: mg total) - 00 by mouth 2 Externa times l daily glipiZIDE Yes [id number] 10mg Take 1 Ke lsey 10 MG oral 3-13 tablet (10 Sey bold Tablet 00:00: mg total) - 00 by mouth 2 Externa times l daily glipiZIDE Yes [id number] 10mg Take 1 Ke lsey 10 MG oral 3-13 tablet (10 Sey bold Tablet 00:00: mg total) - 00 by mouth 2 Externa times l daily Semaglutide Yes [id number] .25mg Inject Anai (0.25 or 3-07 0.25 mg Seybold 0.5 00:00: into the - mg/dose) 2 00 skin once Exte rna mg/1.5 mL a week l SQ Solution Pen-Injecto r Umeclidiniu 0 Yes [id number] Inhale 1 Anai m Bolton 2-24 inhalation Seyb old (Incruse 10:49: into the - Ellipta) 11 lungs Externa 62.5 daily l MCG/INH inhalation AEROSOL POWDER, BREATH ACTIVATED Lidocaine 5 Yes Apply 1 Rakan sey % apply 24 applicatio Seybol d externally 10:49: n - Ointment 11 topically Detail Assembler a as needed l Nystatin 2022- No [id number] Take 5 mL Anai (Nystatin) 09-21-04 (500,000 Seyb old [id number] 00:00: 05:59 units - UNIT/ML 00 :00 total) by Externa mouth/throa mouth 4 l t times Suspension daily for 7 days Amoxicillin 0 Yes Anai -Pot 2-23 Seybold Clavulanate 00:00: - 875-125 MG 00 Externa oral Tablet l Carvedilol 0 Yes [id number] TAKE 1 K elsey 25 MG oral 2-20 TABLET(25 Seyb old Tablet 00:00: MG) BY - 00 MOUTH IN Externa THE l MORNING AND IN THE EVENING WITH MEALS Carvedilol 0 Yes [id number] TAKE 1 K elsey 25 MG oral 2-20 TABLET(25 Seyb old Tablet 00:00: MG) BY - 00 MOUTH IN Externa THE l MORNING AND IN THE EVENING WITH MEALS Carvedilol 0 Yes [id number] TAKE 1 K elsey 25 MG oral 2-20 TABLET(25 Seyb old Tablet 00:00: MG) BY - 00 MOUTH IN Externa THE l MORNING AND IN THE EVENING WITH MEALS Carvedilol 0 Yes [id number] TAKE 1 K elsey 25 MG oral 2-20 TABLET(25 Seyb old Tablet 00:00: MG) BY - 00 MOUTH IN Externa THE l MORNING AND IN THE EVENING WITH MEALS Carvedilol 0 Yes [id number] TAKE 1 K elsey 25 MG oral 2-20 TABLET(25 Seyb old Tablet 00:00: MG) BY - 00 MOUTH IN Externa THE l MORNING AND IN THE EVENING WITH MEALS Carvedilol 2022-0 Yes [id number] TAKE 1 K elsey 25 MG oral 2-20 TABLET(25 Seyb old Tablet 00:00: MG) BY - 00 MOUTH IN Externa THE l MORNING AND IN THE EVENING WITH MEALS Levothyroxi 2022-0 Yes [id number] TAKE 1 Anai ne Sodium 2-13 TABLET(112 Seyb old 112 MCG 00:00: MCG) BY - oral Tablet 00 MOUTH Externa EVERY l MORNING ON AN EMPTY STOMACH Levothyroxi 2022-0 Yes [id number] TAKE 1 Anai ne Sodium 2-13 TABLET(112 Seyb old 112 MCG 00:00: MCG) BY - oral Tablet 00 MOUTH Externa EVERY l MORNING ON AN EMPTY STOMACH Levothyroxi 2022-0 Yes [id number] TAKE 1 Anai ne Sodium 2-13 TABLET(112 Seyb old 112 MCG 00:00: MCG) BY - oral Tablet 00 MOUTH Externa EVERY l MORNING ON AN EMPTY STOMACH Famotidine 0 2022- No 20mg Take 20 mg Anai (PEPCID) 20 2-10 02-10 by mouth 2 S eybold MG oral 14:15: 00:00 times - tablet 32 :00 daily Externa l Umeclidiniu 0 Yes [id number] Inhale 1 Anai m [place] 2-10 inhalation Seyb old (Incruse 13:39: into the - Ellipta) 22 lungs Externa 62.5 daily l MCG/INH inhalation AEROSOL POWDER, BREATH ACTIVATED Lidocaine 5 Yes Apply 1 Rakan sey % apply 2-10 applicatio Seybol d externally 13:39: n - Ointment 22 topically Detail Assembler a as needed l Semaglutide 0 Yes [id number] .25mg Inject Anai (0.25 or 2-10 0.25 mg Seybold 0.5 00:00: into the - mg/dose) 2 00 skin once Exte rna mg/1.5 mL a week l SQ Solution Pen-Injecto r Semaglutide 0 Yes [id number] .25mg Inject Anai (0.25 or 2-10 0.25 mg Seybold 0.5 00:00: into the - mg/dose) 2 00 skin once Exte rna mg/1.5 mL a week l SQ Solution Pen-Injecto r Fluocinonid 3-0 Yes APPLY Kelse y e 0.05 % 2-09 TOPICALLY Seybol d apply 00:00: TO THE - externally 00 AFFECTED Exter na Cream AREA TWICE l DAILY Fluocinonid 2023-0 Yes APPLY Kelse y e 0.05 % 2-09 TOPICALLY Seybol d apply 00:00: TO THE - externally 00 AFFECTED Exter na Cream AREA TWICE l DAILY Fluocinonid 3-0 Yes APPLY Kelse y e 0.05 % 2-09 TOPICALLY Seybol d apply 00:00: TO THE - externally 00 AFFECTED Exter na Cream AREA TWICE l DAILY Fluocinonid 2023-0 Yes APPLY Kelse y e 0.05 % 2-09 TOPICALLY Seybol d apply 00:00: TO THE - externally 00 AFFECTED Exter na Cream AREA TWICE l DAILY Fluocinonid 2023-0 Yes APPLY Kelse y e 0.05 % 2-09 TOPICALLY Seybol d apply 00:00: TO THE - externally 00 AFFECTED Exter na Cream AREA TWICE l DAILY Fluocinonid 3-0 Yes APPLY Kelse y e 0.05 % 2-09 TOPICALLY Seybol d apply 00:00: TO THE - externally 00 AFFECTED Exter na Cream AREA TWICE l DAILY Pantoprazol 2022-0 2023- No Kelse y e Sodium 40 2-09 [...] inhalation l AEROSOL POWDER, BREATH ACTIVATED Advair 2022-0 Yes Anai Diskus 1-22 Seybold 250-50 00:00: [...] AEROSOL POWDER, BREATH ACTIVATED Citalopram 3-0 Yes [id number] TAKE 1 K elsey Hydrobromid 1-17 TABLET(10 Sey bold e 10 MG 00:00: MG) BY - oral Tablet 00 MOUTH Externa DAILY l Citalopram 3-0 Yes [id number] TAKE 1 K elsey Hydrobromid 1-17 TABLET(10 Sey bold e 10 MG 00:00: MG) BY - oral Tablet 00 MOUTH Externa DAILY l Citalopram 2022-0 Yes [id number] TAKE 1 K elsey Hydrobromid 1-17 TABLET(10 Sey bold e 10 MG 00:00: MG) BY - oral Tablet 00 MOUTH Externa DAILY l Citalopram 2022-0 Yes [id number] TAKE 1 K elsey Hydrobromid 1-17 TABLET(10 Sey bold e 10 MG 00:00: MG) BY - oral Tablet 00 MOUTH Externa DAILY l Cetirizine 2021-07 Yes [id number] 5mg Take 1 K elsey HCl 5 MG 2-20 tablet (5 Seybol d oral Tablet 00:00: mg total) - 00 by mouth Externa daily l FLUTICASONE 2021-07 Yes [id number] 50ug Use 1 K elsey PROPIONATE, 2-20 spray (50 Sey bold NASAL, 50 00:00: mcg total) - MCG/ACT 00 in each Externa nasal nostril l Suspension daily Cetirizine 2021-07 Yes [id number] 5mg Take 1 K elsey HCl 5 MG 2-20 tablet (5 Seybol d oral Tablet 00:00: mg total) - 00 by mouth Externa daily l FLUTICASONE 2021-07 Yes [id number] 50ug Use 1 K elsey PROPIONATE, 2-20 spray (50 Sey bold NASAL, 50 00:00: mcg total) - MCG/ACT 00 in each Externa nasal nostril l Suspension daily Cetirizine 2021-07 Yes [id number] 5mg Take 1 K elsey HCl 5 MG 2-20 tablet (5 Seybol d oral Tablet 00:00: mg total) - 00 by mouth Externa daily l FLUTICASONE 2021-07 Yes [id number] 50ug Use 1 K elsey PROPIONATE, 2-20 spray (50 Sey bold NASAL, 50 00:00: mcg total) - MCG/ACT 00 in each Externa nasal nostril l Suspension daily Cetirizine 2021-07 Yes [id number] 5mg Take 1 K elsey HCl 5 MG 2-20 tablet (5 Seybol d oral Tablet 00:00: mg total) - 00 by mouth Externa daily l FLUTICASONE 2021-07 Yes [id number] 50ug Use 1 K elsey PROPIONATE, 2-20 spray (50 Sey bold NASAL, 50 00:00: mcg total) - MCG/ACT 00 in each Externa nasal nostril l Suspension daily Cetirizine 2021-07 Yes [id number] 5mg Take 1 K elsey HCl 5 MG 2-20 tablet (5 Seybol d oral Tablet 00:00: mg total) - 00 by mouth Externa daily l FLUTICASONE 2021-07 Yes [id number] 50ug Use 1 K elsey PROPIONATE, 2-20 spray (50 Sey bold NASAL, 50 00:00: mcg total) - MCG/ACT 00 in each Externa nasal nostril l Suspension daily Cetirizine 2021-07 Yes [id number] 5mg Take 1 K elsey HCl 5 MG 2-20 tablet (5 Seybol d oral Tablet 00:00: mg total) - 00 by mouth Externa daily l FLUTICASONE 2021-07 Yes 50ug Use 1 K elsey PROPIONATE, 2-20 spray (50 Sey bold NASAL, 50 00:00: mcg total) - MCG/ACT 00 in each Externa nasal nostril l Suspension daily Cetirizine 2021-07 Yes [id number] 5mg Take 1 K elsey HCl 5 MG 2-20 tablet (5 Seybol d oral Tablet 00:00: mg total) - 00 by mouth Externa daily l FLUTICASONE 2021-07 Yes 50ug Use 1 K elsey PROPIONATE, 2-20 spray (50 Sey bold NASAL, 50 00:00: mcg total) - MCG/ACT 00 in each Externa nasal nostril l Suspension daily Cetirizine 2021-07 Yes [id number] 5mg Take 1 K elsey HCl 5 MG 2-20 tablet (5 Seybol d oral Tablet 00:00: mg total) - 00 by mouth Externa daily l FLUTICASONE 2021-07 Yes [id number] 50ug Use 1 K elsey PROPIONATE, 2-20 spray (50 Sey bold NASAL, 50 00:00: mcg total) - MCG/ACT 00 in each Externa nasal nostril l Suspension daily FLUTICASONE 2021-07 Yes [id number] 50ug Use 1 K elsey PROPIONATE, 1-29 spray (50 Sey bold NASAL, 50 00:00: mcg total) - MCG/ACT 00 in each Externa nasal nostril l Suspension daily FLUTICASONE 2021-07- No [id number] 50ug Use 1 Anai PROPIONATE, 129 12-20 spray (50 Se ybold NASAL, 50 00:00: 00:00 mcg total) - MCG/ACT 00 :00 in each Externa nasal nostril l Suspension daily Levothyroxi 2021-07 Yes [id number] TAKE 1 Anai ne Sodium 1-07 TABLET(112 Seyb old 112 MCG 00:00: MCG) BY - oral Tablet 00 MOUTH Externa EVERY l MORNING ON AN EMPTY STOMACH Levothyroxi 2021-07 Yes [id number] TAKE 1 Anai ne Sodium 1-07 TABLET(112 Seyb old 112 MCG 00:00: MCG) BY - oral Tablet 00 MOUTH Externa EVERY l MORNING ON AN EMPTY STOMACH Levothyroxi 2021-07 Yes [id number] TAKE 1 Anai ne Sodium 1-07 TABLET(112 Seyb old 112 MCG 00:00: MCG) BY - oral Tablet 00 MOUTH Externa EVERY l MORNING ON AN EMPTY STOMACH Spironolact 2021-07 Yes [id number] TAKE 1 Anai one 25 MG 0-19 TABLET(25 Seybo ld oral Tablet 00:00: MG) BY - 00 MOUTH Externa DAILY l Spironolact 2021-07 Yes [id number] TAKE 1 Anai one 25 MG 0-19 TABLET(25 Seybo ld oral Tablet 00:00: MG) BY - 00 MOUTH Externa DAILY l Spironolact 2021-07 Yes [id number] TAKE 1 Anai one 25 MG 0-19 TABLET(25 Seybo ld oral Tablet 00:00: MG) BY - 00 MOUTH Externa DAILY l Spironolact 2021-07 Yes [id number] TAKE 1 Anai one 25 MG 0-19 TABLET(25 Seybo ld oral Tablet 00:00: MG) BY - 00 MOUTH Externa DAILY l Spironolact 2021-07 Yes [id number] TAKE 1 Anai one 25 MG 0-19 TABLET(25 Seybo ld oral Tablet 00:00: MG) BY - 00 MOUTH Externa DAILY l Spironolact 2021-07 Yes [id number] TAKE 1 Anai one 25 MG 0-19 TABLET(25 Seybo ld oral Tablet 00:00: MG) BY - 00 MOUTH Externa DAILY l Umeclidiniu Yes [id number] Inhale 1 Anai quiros [place] -29 inhalation Seyb old (Incruse 08:57: into the - Ellipta) 43 lungs Externa 62.5 daily l MCG/INH inhalation AEROSOL POWDER, BREATH ACTIVATED Lidocaine Yes Apply 1 Rakan sey % apply 04-26 applicatio Seybol d externally 08:57: n - Ointment 43 topically Detail Assembler a as needed l Umeclidiniu Yes [id number] Inhale 1 Anai quiros [place] - inhalation Seyb old (Incruse 08:57: into the - Ellipta) 43 lungs Externa 62.5 daily l MCG/INH inhalation AEROSOL POWDER, BREATH ACTIVATED Lidocaine Yes Apply 1 Rakan sey % apply 04-26 applicatio Seybol d externally 08:57: n - Ointment 43 topically Detail Assembler a as needed l Umeclidiniu Yes [id number] Inhale 1 Anai quiros [place] 04-26 inhalation Seyb old (Incruse 08:57: into the - Ellipta) 43 lungs Externa 62.5 daily l MCG/INH inhalation AEROSOL POWDER, BREATH ACTIVATED Lidocaine Yes Apply 1 Rakan sey % apply 04-26 applicatio Seybol d externally 08:57: n - 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 l Cream Citalopram Yes [id number] 10mg Take 1 K elsey Hydrobromid 9-12 tablet (10 Se ybold e (CeleXA) 00:00: mg total) - 10 MG oral 00 by mouth Exter na Tablet daily l Atorvastati Yes [id number] 10mg Take 1 Anai n Calcium 9-12 tablet (10 Seyb old (Lipitor) 00:00: mg total) - 10 MG oral 00 by mouth Exter na Tablet daily l Citalopram 2022-0 Yes [id number] 10mg Take 1 K elsey Hydrobromid 9-12 tablet (10 Se ybold e (CeleXA) 00:00: mg total) - 10 MG oral 00 by mouth Exter na Tablet daily l Atorvastati 2021-0 Yes [id number] 10mg Take 1 Anai n Calcium 9-12 tablet (10 Seyb old (Lipitor) 00:00: mg total) - 10 MG oral 00 by mouth Exter na Tablet daily l Citalopram 2021-0 Yes [id number] 10mg Take 1 K elsey Hydrobromid 9-12 tablet (10 Se ybold e (CeleXA) 00:00: mg total) - 10 MG oral 00 by mouth Exter na Tablet daily l Atorvastati 2021-0 Yes [id number] 10mg Take 1 Anai n Calcium 9-12 tablet (10 Seyb old (Lipitor) 00:00: mg total) - 10 MG oral 00 by mouth Exter na Tablet daily l Atorvastati 2021-0 Yes [id number] 10mg Take 1 Anai n Calcium 9-12 tablet (10 Seyb old (Lipitor) 00:00: mg total) - 10 MG oral 00 by mouth Exter na Tablet daily l Atorvastati 2021-0 Yes [id number] 10mg Take 1 Anai n Calcium 9-12 tablet (10 Seyb old (Lipitor) 00:00: mg total) - 10 MG oral 00 by mouth Exter na Tablet daily l Atorvastati 2021-0 Yes [id number] 10mg Take 1 Anai n Calcium 9-12 tablet (10 Seyb old (Lipitor) 00:00: mg total) - 10 MG oral 00 by mouth Exter na Tablet daily l Atorvastati 2021-0 Yes [id number] 10mg Take 1 Anai n Calcium 9-12 tablet (10 Seyb old (Lipitor) 00:00: mg total) - 10 MG oral 00 by mouth Exter na Tablet daily l Atorvastati 2021-0 Yes [id number] 10mg Take 1 Anai n Calcium 9-12 tablet (10 Seyb old (Lipitor) 00:00: mg total) - 10 MG oral 00 by mouth Exter na Tablet daily l Atorvastati 2021-0 Yes [id number] 10mg Take 1 Anai n Calcium 9-12 tablet (10 Seyb old (Lipitor) 00:00: mg total) - 10 MG oral 00 by mouth Exter na Tablet daily l Atorvastati 0 Yes [id number] 10mg Take 1 Anai n Calcium 9-12 tablet (10 Seyb old (Lipitor) 00:00: mg total) - 10 MG oral 00 by mouth Exter na Tablet daily l Carvedilol 2021-0 Yes [id number] 25mg Take 1 K elsey 25 MG oral 9-02 tablet (25 Sey bold Tablet 00:00: mg total) - 00 by mouth Externa in the l morning and 1 tablet (25 mg total) in the evening. Take with meals. Carvedilol Yes [id number] 25mg Take 1 K elsey 25 MG oral 9-02 tablet (25 Sey bold Tablet 00:00: mg total) - 00 by mouth Externa in the l morning and 1 tablet (25 mg total) in the evening. Take with meals. Carvedilol 0 Yes [id number] 25mg Take 1 K elsey 25 MG oral 9-02 tablet (25 Sey bold Tablet 00:00: mg total) - 00 by mouth Externa in the l morning and 1 tablet (25 mg total) in the evening. Take with meals. Carvedilol 0 Yes [id number] 25mg Take 1 K elsey 25 MG [...] Externa Delayed l Response FLUTICASONE 2021-0 Yes [id number] 50ug Use 1 K elsey PROPIONATE, 8-10 spray (50 Sey bold NASAL, 50 00:00: mcg total) - MCG/ACT 00 in each Externa nasal nostril l Suspension daily glipiZIDE 0 Yes [id number] 10mg Take 1 Ke lsey 10 MG oral 8-10 tablet (10 Sey bold Tablet 00:00: mg total) - 00 by mouth 2 Externa times l daily Omeprazole 2021-0 Yes [id number] 40mg Take 1 Anai 40 MG oral 8-10 capsule Seybol d Delayed 00:00: (40 mg - Release 00 total) by Externa Capsule mouth l daily glipiZIDE 2021-0 Yes [id number] 10mg Take 1 Ke lsey 10 MG oral 8-10 tablet (10 Sey bold Tablet 00:00: mg total) - 00 by mouth 2 Externa times l daily Omeprazole 2021-0 Yes [id number] 40mg Take 1 Anai 40 MG oral 8-10 capsule Seybol d Delayed 00:00: (40 mg - Release 00 total) by Externa Capsule mouth l daily glipiZIDE 2021-0 Yes [id number] 10mg Take 1 Ke lsey 10 MG oral 8-10 tablet (10 Sey bold Tablet 00:00: mg total) - 00 by mouth 2 Externa times l daily Omeprazole 2021-0 Yes [id number] 40mg Take 1 Anai 40 MG oral 8-10 capsule Seybol d Delayed 00:00: (40 mg - Release 00 total) by Externa Capsule mouth l daily glipiZIDE 2021-0 Yes [id number] 10mg Take 1 Ke lsey 10 MG oral 8-10 tablet (10 Sey bold Tablet 00:00: mg total) - 00 by mouth 2 Externa times l daily glipiZIDE 2021-0 Yes [id number] 10mg Take 1 Ke lsey 10 MG oral 8-10 tablet (10 Sey bold Tablet 00:00: mg total) - 00 by mouth 2 Externa times l daily Omeprazole 2021-0 2022- No [id number] 40mg Take 1 Anai 40 MG oral 8-10 02-10 capsule Seybo ld Delayed 00:00: 00:00 (40 mg - Release 00 :00 total) by Externa Capsule mouth l daily FLUTICASONE 2021-0 2021- No [id number] 50ug Use 1 Anai PROPIONATE, 8- 11-29 spray (50 Se ybold NASAL, 50 00:00: 00:00 mcg total) - MCG/ACT 00 :00 in each Externa nasal nostril l Suspension daily Levothyroxi 0 Yes [id number] 112ug Take 1 Anai ne Sodium 7-29 tablet Seybold 112 MCG 00:00: (112 mcg - oral Tablet 00 total) by Ext lalitha mouth l every morning ON AN EMPTY STOMACH Metformin 0 Yes [id number] 1000mg Take 1 Anai HCl 1000 MG 7-25 tablet Seybol d oral Tablet 00:00: (1,000 mg - 00 total) by Externa mouth in l the morning and 1 tablet (1,000 mg total) in the evening. Take with meals. Metformin 0 Yes [id number] 1000mg Take 1 Anai HCl 1000 MG 7-25 tablet Seybol d oral Tablet 00:00: (1,000 mg - 00 total) by Externa mouth in l the morning and 1 tablet (1,000 mg total) in the evening. Take with meals. Metformin 0 Yes [id number] 1000mg Take 1 Anai HCl 1000 MG 7-25 tablet Seybol d oral Tablet 00:00: (1,000 mg - 00 total) by Externa mouth in l the morning and 1 tablet (1,000 mg total) in the evening. Take with meals. Metformin 0 Yes [id number] 1000mg Take 1 Anai HCl 1000 MG 7-25 tablet Seybol d oral Tablet 00:00: (1,000 mg - 00 total) by Externa mouth in l the morning and 1 tablet (1,000 mg total) in the evening. Take with meals. Metformin 0 Yes [id number] 1000mg Take 1 Anai HCl 1000 MG 7-25 tablet Seybol d oral Tablet 00:00: (1,000 mg - 00 total) by Externa mouth in l the morning and 1 tablet (1,000 mg total) in the evening. Take with meals. Metformin 0 Yes [id number] 1000mg Take 1 Anai HCl 1000 MG 7-25 tablet Seybol d oral Tablet 00:00: (1,000 mg - 00 total) by Externa mouth in l the morning and 1 tablet (1,000 mg total) in the evening. Take with meals. Metformin 2021-0 Yes [id number] 1000mg Take 1 Anai HCl 1000 MG 7-25 tablet Seybol d oral Tablet 00:00: (1,000 mg - 00 total) by Externa mouth in l the morning and 1 tablet (1,000 mg total) in the evening. Take with meals. Dapaglifloz 2021-0 Yes [id number] 1{each} Take 1 Anai in 01-26 each by Seybold Propanediol 00:00: mouth - (Farxiga) 5 00 daily Externa MG oral l Tablet Dapaglifloz 2021- Yes [id number] 1{each} Take 1 Anai in 01-26 each by Seybold Propanediol 00:00: mouth - (Farxiga) 5 00 daily Externa MG oral l Tablet Dapaglifloz 2021-0 Yes [id number] 1{each} Take 1 Anai in 01-26 each by Seybold Propanediol 00:00: mouth - (Farxiga) 5 00 daily Externa MG oral l Tablet Dapaglifloz 0 2023- No [id number] 1{each} Take 1 Anai in 01-26 02-10 each by Seybold Propanediol 00:00: 00:00 mouth - (Farxiga) 5 00 :00 daily Externa MG oral l Tablet Furosemide 2021-0 Yes [id number] 40mg Take 1 Anai (Lasix) 40 6-29 tablet (40 Sey bold MG oral 00:00: mg total) - Tablet 00 by mouth Externa daily l Furosemide 2021-0 Yes [id number] 40mg Take 1 Anai (Lasix) 40 6-29 tablet (40 Sey bold MG oral 00:00: mg total) - Tablet 00 by mouth Externa daily l Furosemide 2021-0 Yes [id number] 40mg Take 1 Anai (Lasix) 40 6-29 tablet (40 Sey bold MG oral 00:00: mg total) - Tablet 00 by mouth Externa daily l Furosemide 2021-0 Yes [id number] 40mg Take 1 Anai (Lasix) 40 6-29 tablet (40 Sey bold MG oral 00:00: mg total) - Tablet 00 by mouth Externa daily l Furosemide 2021-0 Yes [id number] 40mg Take 1 Anai (Lasix) 40 6-29 tablet (40 Sey bold MG oral 00:00: mg total) - Tablet 00 by mouth Externa daily l Furosemide 0 Yes [id number] 40mg Take 1 Anai (Lasix) 40 6-29 tablet (40 Sey bold MG oral 00:00: mg total) - Tablet 00 by mouth Externa daily l Furosemide 0 Yes [id number] 40mg Take 1 Anai (Lasix) 40 6-29 tablet (40 Sey bold MG oral 00:00: mg total) - Tablet 00 by mouth Externa daily l Furosemide 0 2023- No [id number] 40mg Take 1 Anai (Lasix) 40 6-29 [...] as l needed FOR PAIN Santyl 250 2022-0 Yes APPLY TO Rakan sey UNIT/GM 5-04 [...] externally 00 Externa Ointment l Mupirocin Yes [id number] Apply 1 Anai (BACTROBAN) 11-24 applicatio Se ybold 2 % apply 00:00: n externally 00 topically Ointment 2 times daily levoFLOXaci 2021-0 Yes [id number] 500mg Take 1 Anai n 11-2401 tablet Seybold (Levaquin) 00:00: (500 mg 500 MG oral 00 total) by Tablet mouth daily Minocycline 2021-0 Yes [id number] 100mg Take 1 Anai HCl 100 MG 4-29 9101 capsule Seybol d oral 00:00: (100 mg Capsule 00 total) by mouth in the morning and 1 capsule (100 mg total) in the evening. Mupirocin 2-0 Yes [id number] Apply 1 Anai (BACTROBAN) 11-24 applicatio Se ybold 2 % apply 00:00: n - externally 00 topically Exte rna Ointment 2 times l daily Minocycline 2022-0 Yes [id number] 100mg Take 1 Anai HCl 100 MG 11-2401 capsule Seybol d oral 00:00: (100 mg - Capsule 00 total) by Externa mouth in l the morning and 1 capsule (100 mg total) in the evening. Mupirocin 2-0 Yes [id number] Apply 1 Anai (BACTROBAN) 11-24 applicatio Se ybold 2 % apply 00:00: n - externally 00 topically Exte rna Ointment 2 times l daily Minocycline 2-0 Yes [id number] 100mg Take 1 Anai HCl 100 MG 11-24 capsule Seybol d oral 00:00: (100 mg - Capsule 00 total) by Externa mouth in l the morning and 1 capsule (100 mg total) in the evening. Mupirocin 2-0 Yes [id number] Apply 1 Anai (BACTROBAN) 11-24 applicatio Se ybold 2 % apply 00:00: n - externally 00 topically Exte rna Ointment 2 times l daily Minocycline 2-0 Yes [id number] 100mg Take 1 Anai HCl 100 MG 11-24 capsule Seybol d oral 00:00: (100 mg - Capsule 00 total) by Externa mouth in l the morning and 1 capsule (100 mg total) in the evening. Mupirocin 2-0 Yes [id number] Apply 1 Anai (BACTROBAN) 11-24 applicatio Se ybold 2 % apply 00:00: n - externally 00 topically Exte rna Ointment 2 times l daily Minocycline 2022-0 Yes [id number] 100mg Take 1 Anai HCl 100 MG 11-2401 capsule Seybol d oral 00:00: (100 mg - Capsule 00 total) by Externa mouth in l the morning and 1 capsule (100 mg total) in the evening. Mupirocin 2022-0 Yes [id number] Apply 1 Anai (BACTROBAN) 11-24 applicatio Se ybold 2 % apply 00:00: n - externally 00 topically Exte rna Ointment 2 times l daily Minocycline 2022-0 Yes [id number] 100mg Take 1 Anai HCl 100 MG 11-24 capsule Seybol d oral 00:00: (100 mg - Capsule 00 total) by Externa mouth in l the morning and 1 capsule (100 mg total) in the evening. Mupirocin 2022-0 Yes [id number] Apply 1 Anai (BACTROBAN) 11-24 applicatio Se ybold 2 % apply 00:00: n - externally 00 topically Exte rna Ointment 2 times l daily Minocycline 2022-0 Yes [id number] 100mg Take 1 Anai HCl 100 MG 11-24 capsule Seybol d oral 00:00: (100 mg - Capsule 00 total) by Externa mouth in l the morning and 1 capsule (100 mg total) in the evening. Mupirocin 2022-0 Yes [id number] Apply 1 Anai (BACTROBAN) 11-24 applicatio Se ybold 2 % apply 00:00: n - externally 00 topically Exte rna Ointment 2 times l daily Minocycline 2022-0 Yes [id number] 100mg Take 1 Anai HCl 100 MG 11-24 capsule Seybol d oral 00:00: (100 mg - Capsule 00 total) by Externa mouth in l the morning and 1 capsule (100 mg total) in the evening. Mupirocin 2022-0 Yes [id number] Apply 1 Anai (BACTROBAN) 11-24 applicatio Se ybold 2 % apply 00:00: n - externally 00 topically Exte rna Ointment 2 times l daily Minocycline 2022-0 Yes [id number] 100mg Take 1 Anai HCl 100 MG 11-2401 capsule Seybol d oral 00:00: (100 mg - Capsule 00 total) by Externa mouth in l the morning and 1 capsule (100 mg total) in the evening. Mupirocin 2022-0 Yes [id number] Apply 1 Anai (BACTROBAN) 11-24 applicatio Se ybold 2 % apply 00:00: n - externally 00 topically Exte rna Ointment 2 times l daily Minocycline 2021-0 Yes [id number] 100mg Take 1 Anai HCl 100 MG 11-24 capsule Seybol d oral 00:00: (100 mg - Capsule 00 total) by Externa mouth in l the morning and 1 capsule (100 mg total) in the evening. Mupirocin Yes [id number] Apply 1 Anai (BACTROBAN) 11-24 applicatio Se ybold 2 % apply 00:00: n - externally 00 topically Exte rna Ointment 2 times l daily Minocycline 2021- Yes [id number] 100mg Take 1 Anai HCl 100 MG 11-24 capsule Seybol d oral 00:00: (100 mg - Capsule 00 total) by Externa mouth in l the morning and 1 capsule (100 mg total) in the evening. linaGLIPtin 2021-0 Yes [id number] 1{tbl} Take 1 Anai (Tradjenta) 4-26 tablet by Sey bold 5 MG oral 00:00: mouth Tablet 00 daily Empaglifloz 2021-0 Yes [id number] 1{each} Take 1 Anai in - each by Seybold (Jardiance) 00:00: mouth 10 MG oral 00 daily Tablet linaGLIPtin 2021-0 Yes [id number] 1{tbl} Take 1 Anai (Tradjenta) 4-26 tablet by Sey bold 5 MG oral 00:00: mouth - Tablet 00 daily Externa l linaGLIPtin 2021-0 Yes [id number] 1{tbl} Take 1 Anai (Tradjenta) 4-26 tablet by Sey bold 5 MG oral 00:00: mouth - Tablet 00 daily Externa l linaGLIPtin 2021-0 Yes [id number] 1{tbl} Take 1 Anai (Tradjenta) 4-26 tablet by Sey bold 5 MG oral 00:00: mouth - Tablet 00 daily Externa l linaGLIPtin 2021-0 3- No [id number] 1{tbl} Take 1 Anai (Tradjenta) 4-26 02-10 tablet by Se ybold 5 MG oral 00:00: 00:00 mouth - Tablet 00 :00 daily Externa l Umeclidiniu 2021-0 Yes [id number] Inhale 1 Anai m [place] 4-21 inhalation Seyb old (Incruse 08:13: into the Ellipta) 06 lungs 62.5 daily MCG/INH inhalation AEROSOL POWDER, BREATH ACTIVATED Lidocaine 5 0 Yes Apply 1 Rakan sey % apply 4-21 applicatio Seybol d externally 08:13: n Ointment 06 topically as needed Umeclidiniu 2021-0 Yes [id number] Inhale 1 Anai m [place] 4-21 inhalation Seyb old (Incruse 08:13: into the Ellipta) 06 lungs 62.5 daily MCG/INH inhalation AEROSOL POWDER, BREATH ACTIVATED Lidocaine 5 0 Yes Apply 1 Rakan sey % apply 4-21 applicatio Seybol d externally 08:13: n Ointment 06 topically as needed Empaglifloz 2021-0 Yes [id number] 1{tbl} Take 1 Anai in 4-21 tablet by Emilia (Jardiance) 00:00: mouth 25 MG oral 00 daily Tablet Cetirizine 2021-0 Yes [id number] 5mg Take 1 K elsey HCl 5 MG 4-21 tablet (5 Seybol d oral Tablet 00:00: mg total) 00 by mouth daily Cetirizine 2021-0 Yes [id number] 5mg Take 1 K elsey HCl 5 MG 4-21 tablet (5 Seybol d oral Tablet 00:00: mg total) 00 by mouth daily Cetirizine 2021-0 Yes [id number] 5mg Take 1 K elsey HCl 5 MG 4-21 tablet (5 Seybol d oral Tablet 00:00: mg total) - 00 by mouth Externa daily l Cetirizine 2021-0 Yes [id number] 5mg Take 1 K elsey HCl 5 MG 4-21 tablet (5 Seybol d oral Tablet 00:00: mg total) - 00 by mouth Externa daily l Cetirizine 2021-0 2- No [id number] 5mg Take 1 Anai HCl 5 MG [...] hours as l needed FOR PAIN Acetaminoph 2022- No 1{tbl} Q.25D Take 1 Anai en-Codeine 4-11 04-06 tablet by Sey bold #3 300-30 00:00: 00:00 mouth - MG oral 00 :00 every 6 Externa Tablet hours as l needed FOR PAIN Umeclidiniu Yes [id number] Inhale 1 Anai m [place] 4-05 inhalation Seyb old (Incruse 09:30: into the Ellipta) 53 lungs 62.5 daily MCG/INH inhalation AEROSOL POWDER, BREATH ACTIVATED Spironolact Yes [id number] 25mg Take 1 Anai one 25 MG 4-05 tablet (25 Seyb old oral Tablet 00:00: mg total) 00 by mouth daily Furosemide 0 Yes 40mg Take 1 Kelse y (Lasix) 40 4-05 tablet (40 Sey bold MG oral 00:00: mg total) Tablet 00 by mouth daily Spironolact 0 Yes [id number] 25mg Take 1 Anai one 25 MG 4-05 tablet (25 Seyb old oral Tablet 00:00: mg total) 00 by mouth daily Furosemide Yes 40mg Take 1 Kelse y (Lasix) 40 4-05 tablet (40 Sey bold MG oral 00:00: mg total) Tablet 00 by mouth daily Spironolact 0 Yes [id number] 25mg Take 1 Anai one 25 MG 4-05 tablet (25 Seyb old oral Tablet 00:00: mg total) - 00 by mouth Externa daily l Spironolact 0 Yes [id number] 25mg Take 1 Anai one 25 MG 4-05 tablet (25 Seyb old oral Tablet 00:00: mg total) 00 by mouth daily Furosemide 0 Yes [id number] 40mg Take 1 K elsey (Lasix) 40 [...] Externa AREA EVERY l 12 HOURS Clotrimazol 2-0 Yes APPLY Kelse y e 1 % [...] AREA EVERY 12 HOURS Spironolact 2021- No [id number] 12.5mg Take 0.5 Anai one 25 MG 2-28 04-05 tablets Seybol d oral Tablet 00:00: 00:00 (12.5 mg 00 :00 total) by mouth daily Carvedilol 2021- No 25mg Take 25 mg Anai 25 MG oral 2-18 02-18 by mouth 2 Se ybold Tablet 14:30: 00:00 times 25 :00 daily (with meals) Umeclidiniu Yes Inhale 1 Ke lsey m [place] 2-18 inhalation Seyb old (Incruse 14:18: into the Ellipta) 48 lungs 62.5 daily MCG/INH inhalation AEROSOL POWDER, BREATH ACTIVATED Carvedilol Yes [id number] 25mg Take 1 K elsey 25 MG oral 2-18 tablet (25 Sey bold Tablet 00:00: mg total) 00 by mouth 2 times daily (with meals) Carvedilol Yes [id number] 25mg Take 1 K elsey 25 MG oral 2-18 tablet (25 Sey bold Tablet 00:00: mg total) 00 by mouth 2 times daily (with meals) Carvedilol Yes [id number] 25mg Take 1 K elsey 25 MG oral 2-18 tablet (25 Sey bold Tablet 00:00: mg total) 00 by mouth 2 times daily (with meals) Empaglifloz 2021-0 Yes [id number] 1{tbl} Take 1 Anai in 2-18 tablet by Seybold (Jardiance) 00:00: mouth 10 MG oral 00 daily Tablet Carvedilol Yes [id number] 25mg Take 1 K elsey 25 MG oral 2-18 tablet (25 Sey bold Tablet 00:00: mg total) 00 by mouth 2 times daily (with meals) Empaglifloz 2021-0 Yes [id number] 1{tbl} Take 1 Anai in 2-18 tablet by Seybold (Jardiance) 00:00: mouth 10 MG oral 00 daily Tablet Empaglifloz 2021-0 2021- No [id number] 1{tbl} Take 1 Anai in 2-18 04-21 tablet by Seybold (Jardiance) 00:00: 00:00 mouth 10 MG oral 00 :00 daily Tablet Levothyroxi 2021-0 Yes [id number] 112ug Take 112 Anai ne Sodium 2-15 mcg by Seybold 112 MCG 00:00: mouth oral Tablet 00 every morning ON AN EMPTY STOMACH Metformin 2021-0 Yes [id number] 1000mg Take 1,000 Anai HCl 1000 MG 2-15 mg by Seybold oral Tablet 00:00: mouth 2 00 times daily (with meals) Levothyroxi 2021-0 Yes [id number] 112ug Take 112 Anai ne Sodium 2-15 mcg by Seybold 112 MCG 00:00: mouth oral Tablet 00 every morning ON AN EMPTY STOMACH Metformin 2021-0 Yes [id number] 1000mg Take 1,000 Anai HCl 1000 MG [...] times daily (with meals) Levothyroxi 2021-0 Yes [id number] 112ug Take 112 Anai ne Sodium 2-15 mcg by Seybold 112 MCG 00:00: mouth oral Tablet 00 every morning ON AN EMPTY STOMACH Metformin 2021-0 Yes [id number] 1000mg Take 1,000 Anai HCl 1000 MG 2-15 mg by Seybold oral Tablet 00:00: mouth 2 00 times daily (with meals) Xarelto 20 2021-0 Yes [id number] TAKE 1 K elsey MG oral 1-21 TABLET BY Seybold Tablet 00:00: MOUTH 00 EVERY DAY WITH EVENING MEAL Xarelto 20 2021-0 Yes [id number] TAKE 1 K elsey MG oral 1-21 TABLET BY Seybold Tablet 00:00: MOUTH 00 EVERY DAY WITH EVENING MEAL Xarelto 20 2021-0 Yes [id number] TAKE 1 K elsey MG oral 1-21 TABLET BY Seybold Tablet 00:00: MOUTH - 00 EVERY DAY Externa WITH l EVENING MEAL Xarelto 20 2021-0 Yes [id number] TAKE 1 K elsey MG oral 1-21 TABLET BY Seybold Tablet 00:00: MOUTH - 00 EVERY DAY Externa WITH l EVENING MEAL Xarelto 20 Yes [id number] TAKE 1 K elsey MG oral 1-21 TABLET BY Seybold Tablet 00:00: MOUTH - 00 EVERY DAY Externa WITH l EVENING MEAL Xarelto 20 Yes TAKE 1 Kelse y MG oral 1-21 TABLET BY Seybold Tablet 00:00: MOUTH 00 EVERY DAY WITH EVENING MEAL Xarelto 20 Yes [id number] TAKE 1 K elsey MG oral 1-21 TABLET BY Seybold Tablet 00:00: MOUTH - 00 EVERY DAY Externa WITH l EVENING MEAL Xarelto 20 Yes [id number] TAKE 1 K elsey MG oral 1-21 TABLET BY Seybold Tablet 00:00: MOUTH - 00 EVERY DAY Externa WITH l EVENING MEAL Xarelto Yes [id number] TAKE 1 K elsey MG oral 1-21 TABLET BY Seybold Tablet 00:00: MOUTH - 00 EVERY DAY Externa WITH l EVENING MEAL Xarelto Yes [id number] TAKE 1 Anai MG oral 1-21 [id number] TABLET BY Seyb old Tablet 00:00: MOUTH - 00 EVERY DAY Externa WITH l EVENING MEAL Xarelto Yes [id number] TAKE 1 Anai MG oral 1-21 [id number] TABLET BY Seyb old Tablet 00:00: MOUTH - 00 EVERY DAY Externa WITH l EVENING MEAL Xarelto Yes [id number] TAKE 1 Anai MG oral 1-21 [id number] TABLET BY Seyb old Tablet 00:00: MOUTH - 00 EVERY DAY Externa WITH l EVENING MEAL Xarelto 20 Yes [id number] TAKE 1 Anai MG oral 1-21 [id number] TABLET BY Seyb old Tablet 00:00: MOUTH - 00 EVERY DAY Externa WITH l EVENING MEAL Xarelto 20 Yes [id number] TAKE 1 K elsey MG oral 1-21 TABLET BY Seybold Tablet 00:00: MOUTH 00 EVERY DAY WITH EVENING MEAL glipiZIDE 2021-0 Yes [id number] 10mg Take 10 mg Anai 10 MG oral 1-19 by mouth 2 Sey bold Tablet 00:00: times 00 daily glipiZIDE 2-0 Yes [id number] 10mg Take 10 mg Anai 10 MG oral 1-19 by mouth 2 Sey bold Tablet 00:00: times 00 daily glipiZIDE 2-0 Yes 10mg Take 10 mg Ke lsey 10 MG oral 1-19 by mouth 2 Sey bold Tablet 00:00: times 00 daily glipiZIDE 2021-0 Yes [id number] 10mg Take 10 mg Anai 10 MG oral 1-19 by mouth 2 Sey bold Tablet 00:00: times 00 daily Spironolact 2021-0 Yes 25mg Take 25 mg Anai one 25 MG 1-08 by mouth Seybol d oral Tablet 00:00: daily 00 Paroxetine 2021-0 Yes [id number] 20mg Take 20 mg Anai HCl 20 MG 1-05 by mouth Seybol d oral Tablet 00:00: every 00 morning Paroxetine 2-0 Yes [id number] 20mg Take 20 mg Anai HCl 20 MG 1-05 by mouth Seybol d oral Tablet 00:00: every 00 morning Paroxetine 2-0 Yes 20mg Take 20 mg K elsey HCl 20 MG 1-05 by mouth Seybol d oral Tablet 00:00: every 00 morning Paroxetine 2-0 Yes [id number] 20mg Take 20 mg Anai HCl 20 MG 1-05 by mouth Seybol d oral Tablet 00:00: every 00 morning Jardiance 2020-1 2022- No 1{tbl} Take 1 Rakan sey 10 MG oral 2-29 -18 tablet by Sey bold Tablet 00:00: 00:00 mouth 00 :00 daily Omeprazole 2020-1 Yes [id number] 20mg Take 20 mg Anai 20 MG oral 2-24 by mouth Seybo ld Delayed 00:00: daily Release 00 Capsule Omeprazole 2020-1 Yes [id number] 20mg Take 20 mg Anai 20 MG oral 2-24 by mouth Seybo ld Delayed 00:00: daily Release 00 Capsule Omeprazole 2020-1 Yes 20mg Take 20 mg K elsey 20 MG oral 2-24 by mouth Seybo ld Delayed 00:00: daily Release 00 Capsule Omeprazole 2020-1 Yes [id number] 20mg Take 20 mg Anai 20 MG oral 2-24 by mouth Seybo ld Delayed 00:00: daily Release 00 Capsule Immunizations Ordered Immunization Filled Immunization Date Status Commen ts Source Name Name Influenza Virus 2022-04-26 Completed Anai puente Vaccine, 00:00:00 - External Quadrivalent, High Dose, Age 65 And Up Tdap- (Boostrix, 2022-04-26 Completed Anai farleyboshonda Adacel) 00:00:00 - External Influenza Virus 2022-04-26 Completed Anai Crowder ybbartolome Vaccine, 00:00:00 - External Quadrivalent, High Dose, Age 65 And Up Tdap- (Boostrix, 2022-04-26 Completed Anai Trivedi eybold Adacel) 00:00:00 - External Influenza Virus 2022-04-26 Completed Anai Crowder ybbartolmoe Vaccine, 00:00:00 - External Quadrivalent, High Dose, Age 65 And Up Tdap- (Boostrix, 2022-04-26 Completed Anai Trivedi eybold Adacel) 00:00:00 - External Influenza Virus 2022-04-26 Completed Anai puente Vaccine, 00:00:00 - External Quadrivalent, High Dose, Age 65 And Up Tdap- (Boostrix, 2022-04-26 Completed Anai Trivedi eybold Adacel) 00:00:00 - External Influenza Virus 2022-04-26 Completed Anai puente Vaccine, 00:00:00 - External Quadrivalent, High Dose, Age 65 And Up Tdap- (Boostrix, 2022-04-26 Completed Anai S eybold Adacel) 00:00:00 - External Influenza Virus 2022-04-26 Completed Anai Crowder ybbartolome Vaccine, 00:00:00 - External Quadrivalent, High Dose, Age 65 And Up Tdap- (Boostrix, 2022-04-26 Completed Anai Trivedi eybold Adacel) 00:00:00 - External Influenza Virus 2022-04-26 Completed Anai Crowder ybbartolome Vaccine, 00:00:00 - External Quadrivalent, High Dose, Age 65 And Up Tdap- (Boostrix, 2022-04-26 Completed Anai S eybold Adacel) 00:00:00 - External Influenza Virus 2022-04-26 Completed Anai Crowder ybbartolome Vaccine, 00:00:00 - External Quadrivalent, High Dose, Age 65 And Up Tdap- (Boostrix, 2022-04-26 Completed Anai coelhold Adacel) 00:00:00 - External Influenza Virus 2022-04-26 Completed Anai Crowder ybold Vaccine, 00:00:00 - External Quadrivalent, High Dose, Age 65 And Up Tdap- (Boostrix, 2022-04-26 Completed Anai coelhold Adacel) 00:00:00 - External Influenza Virus 2022-04-26 Completed Anai Crowder ybold Vaccine, 00:00:00 - External Quadrivalent, High Dose, Age 65 And Up Tdap- (Boostrix, 2022-04-26 Completed Anai pang Adacel) 00:00:00 - External Influenza Virus 2021-02-26 [...] 00:00:00 - External Pneumococcal 2020-01-30 Completed Anai Crowderybo ld Vaccine, Conjugate 00:00:00 - Exte rnal 13 Hep A/ Hep B Combo 2020-01-30 Completed Anai Seybold 00:00:00 - External Pneumococcal 2020-01-30 Completed Anai Seybo ld Vaccine, Conjugate 00:00:00 - Exte rnal 13 Hep A/ Hep B Combo 2020-01-30 Completed Anai Seybold 00:00:00 - External Pneumococcal 2020-01-30 Completed Anai Crowderybo ld Vaccine, Conjugate 00:00:00 - Exte rnal 13 Hep A/ Hep B Combo 2020-01-30 Completed Anai Crowderharperbartolome 00:00:00 - External Pneumococcal 2020-01-30 Completed Anai [...] Body weight 2023-01-11 16:33:00 93.441 kg Anai S eybold - External BMI 2023-01-11 16:33:00 33.25 kg/m2 Anai S eybold - External Systolic blood 2022-12-26 13:08:00 110 mm[Hg] Anai Seybold - pressure External Diastolic blood 2022-12-26 13:08:00 64 mm[Hg] Elda y Seybold - pressure External [...] External Diastolic blood 2022-10-31 19:55:00 65 mm[Hg] Rakanse y Seybold - pressure External [...] Heart rate 2022-09-21 16:48:00 92 /min Anai Trivedi eybold - External Body temperature 2022-09-21 16:48:00 36.61 Tiki Samia ey Seybold - External Respiratory rate 2022-09-21 16:48:00 20 /min Samia ey Seybold - External Body height 2022-09-21 16:48:00 167.6 cm Anai S eybold - External Body weight 2022-09-21 16:48:00 92.534 kg Anai Trivedi eybold - External BMI 2022-09-21 16:48:00 32.93 kg/m2 Anai Trivedi eybold - External Oxygen saturation in 2022-09-21 16:48:00 98 /min Anai Nieto - Arterial blood by External Pulse oximetry Systolic blood 2022-09-07 19:35:00 140 mm[Hg] Anai Seybold - pressure External Diastolic blood 2022-09-07 19:35:00 76 mm[Hg] Rakanse y Seybold - pressure External Heart rate 2022-09-07 19:35:00 130 /min Anai Trivedi eybold - External Body temperature 2022-09-07 19:35:00 [...] saturation in 2022-07-17 13:57:00 99 /min Anai Crowderybold - Arterial blood by External Pulse oximetry [...] Clinicians Facility Department ID 2023-02-22 2023-02-22 Outpatient WILDMADALYN MORGAN [id number] Anai 13:00:00 13:00:00 Get EDVINTree puente 2023-02-11 2023-02-11 Outpatient ERIKA SUAZO [id number] Anai 09:00:00 09:00:00 Seybol d 2023-01-21 2023-01-21 Outpatient PREZAS, ANAI MORGAN [id number] Anai 00:00:00 00:00:00 BECCA Seybol d 2023-01-17 2023-01-17 Outpatient LAKEISHAERIKA Berkowitz ANAI MORGAN [id number] Anai 12:00:00 12:00:00 Seybol d 2023-01-11 2023-01-11 Outpatient PREZAS, ANAI MORGAN [id number] Anai 11:45:00 11:45:00 BECCA Seybol d 2023-01-02 2023-01-02 Outpatient PREZAS, ANAI MORGAN [id number] Anai 00:00:00 00:00:00 BECCA Seybol d 2022-12-31 2022-12-31 Outpatient PREZASANAI [id number] Anai 00:00:00 00:00:00 BECCA Seybol d 2022-12-27 2022-12-27 Outpatient MANDI SUAZOMARIAN MORGAN [id number] Anai 09:00:00 09:00:00 Seybol d 2022-12-27 2022-12-27 Outpatient ANAI MORGAN [id number] Anai 09:00:00 09:00:00 Seybol d 2022-12-26 2022-12-26 Outpatient LAB90 ANAI MORGAN [id number] Anai 08:45:00 08:45:00 Seybol d 2022-12-26 2022-12-26 Outpatient PREZAS, ANAI MORGAN [id number] Anai 08:15:00 08:15:00 BECCA Seybol d 2022-12-13 2022-12-13 Outpatient ERIKA SUAZO ANAI MORGAN [id number] Anai 13:00:00 13:00:00 Seybol d 2022-12-13 2022-12-13 Outpatient [facility] ANAI MORGAN [id number] Anai 00:00:00 00:00:00 EDVIN Deutsch Se 2022-12-04 2022-12-04 Outpatient PREZASANAI [id number] Anai 00:00:00 00:00:00 BECCA Seybol d 2022-12-03 2022-12-03 Outpatient PREZAANAI Trivedi [id number] Anai 00:00:00 00:00:00 BECCA Seybol d 2022-11-19 2022-11-19 Outpatient ERIKA SUAZO ANAI MORGAN [id number] Anai 00:00:00 00:00:00 Seybol d 2022-11-19 2022-11-19 Outpatient [place] ANAI MORGAN [id number] Anai 00:00:00 00:00:00 EDVIN Deutsch Se ybbartolome 2022-11-16 2022-11-16 Outpatient DANIELLE ROGEL ANAI MORGAN [id number] Anai 09:00:00 09:00:00 Seybol d 2022-11-13 2022-11-13 Outpatient ANAI MORGAN [id number] Anai 11:00:00 11:00:00 Seybol d 2022-11-13 2022-11-13 Outpatient TYRONE ESTRADA ANAI MORGAN [id number] Anai 00:00:00 00:00:00 Seybol d 2022-11-13 2022-11-13 Outpatient ANAI LIRA [id number] Anai 00:00:00 00:00:00 YITZCHAK Seybo ld 2022-11-11 2022-11-11 Outpatient PREANAI ELMORE [id number] Anai 00:00:00 00:00:00 BECCA Seybol d 2022-11-09 2022-11-09 Outpatient ANAI LIRA [id number] Anai 13:15:00 13:15:00 YITZCHAK Seybo ld 2022-11-09 2022-11-09 Outpatient PREANAI ELMORE [id number] Anai 00:00:00 00:00:00 BECCA Seybol d 2022-11-08 2022-11-08 Outpatient [place] ANAI MORGAN [id number] Anai 00:00:00 00:00:00 A EDVIN Se ybold 2022-11-07 2022-11-07 Outpatient ANAI MARIE [id number] Anai 14:45:00 14:45:00 BECCA Seybol d 2022-11-07 2022-11-07 Outpatient BRODERICKMENDEZ ANAI ANAI [id number] Anai 00:00:00 00:00:00 BECCA Seybol d 2022-11-07 2022-11-07 Outpatient [place] ANAI ANAI [id number] Anai 00:00:00 00:00:00 A, EDVIN Crowder ybold 2022-11-06 2022-11-06 Outpatient ANAI ANAI [id number] Anai 15:00:00 15:00:00 Seybol d 2022-11-06 2022-11-06 Outpatient ANAI ANAI [id number] Anai 14:00:00 14:00:00 Seybol d 2022-11-06 2022-11-06 Outpatient [place] ANAI ANAI [id number] Anai 00:00:00 00:00:00 A, EDVIN Crowder ybold 2022-11-05 2022-11-05 Outpatient ANAI LIRA ANAI [id number] Anai 00:00:00 00:00:00 BEEK Seybo ld 2022-10-31 2022-10-31 Outpatient [place] ANAI ANAI [id number] Anai 15:30:00 15:30:00 A, EDVIN Crowder ybold 2022-10-31 2022-10-31 Outpatient [place] ANAI ANAI [id number] Anai 15:00:00 15:00:00 A, EDVIN Crowder ybold 2022-10-30 2022-10-30 Outpatient [place] ANAI ANAI [id number] Anai 00:00:00 00:00:00 A, EDVIN Crowder ybold 2022-10-30 2022-10-30 Outpatient [place] ANAI ANAI [id number] Anai 00:00:00 00:00:00 A, EDVIN Crowder ybold 2022-10-29 2022-10-29 Outpatient ANAI ANAI [id number] Anai 10:30:00 10:30:00 Seybol d 2022-10-26 2022-10-26 Outpatient RADIOLOGY, ANAI MORGAN [id number] Anai 00:00:00 00:00:00 DEPT Seybol d 2022-10-25 2022-10-25 Outpatient CHANELLTYLER ANAI MORGAN [id number] Anai 13:45:00 13:45:00 Seybol d 2022-10-25 2022-10-25 Outpatient PREZAS, ANAI MORGAN [id number] Anai 00:00:00 00:00:00 BECCA Seybol d 2022-10-25 2022-10-25 Outpatient PREZAS, ANAI MORGAN [id number] Anai 00:00:00 00:00:00 BECCA Seybol d 2022-10-25 2022-10-25 Outpatient RADIOLOGY, ANAI MORGAN [id number] Anai 00:00:00 00:00:00 DEPT Seybol d 2022-10-24 2022-10-24 Outpatient PREZAS, ANAI MORGAN [id number] Anai 00:00:00 00:00:00 BECCA Seybol d 2022-10-24 2022-10-24 Outpatient SORAYA, ANAI MORGAN [id number] Anai 00:00:00 00:00:00 YITZCHAK Seybo ld 2022-10-22 2022-10-22 Outpatient CORTEZ, ANAI MORGAN [id number] Anai 00:00:00 00:00:00 MANSI-MARY Se ybold A 2022-10-19 2022-10-19 Outpatient PREZAS, ANAI MORGAN [id number] Anai 10:30:00 10:30:00 BECCA Seybol d 2022-10-19 2022-10-19 Outpatient ANAI MORGAN [id number] Anai 10:30:00 10:30:00 Seybol d 2022-10-18 2022-10-18 Outpatient LAB39 ANAI MORGAN [id number] Anai 09:55:00 09:55:00 Seybol d 2022-10-18 2022-10-18 Outpatient ANAI ABREU [id number] Anai 09:15:00 09:15:00 HALLIE Seybol d 2022-10-18 2022-10-18 Outpatient PREZAS, ANAI MORGAN [id number] Anai 00:00:00 00:00:00 BECCA Seybol d 2022-10-08 2022-10-08 Outpatient PREZAS, ANAI MORGAN [id number] Anai 00:00:00 00:00:00 BECCA Seybol d 2022-10-06 2022-10-06 Outpatient PREZAS, ANAI MORGAN [id number] Anai 00:00:00 00:00:00 BECCA Seybol d 2022-10-02 2022-10-02 Outpatient PREZAS, ANAI MORGAN [id number] Anai 00:00:00 00:00:00 BECCA Seybol d 2022-09-21 2022-09-21 Outpatient PREZAS, ANAI MORGAN [id number] Aani 11:00:00 11:00:00 BECCA Seybol d 2022-09-15 2022-09-15 Outpatient PREZAS, ANAI MORGAN [id number] Anai 00:00:00 00:00:00 BECCA Seybol d 2022-09-14 2022-09-14 Outpatient ANAI MORGAN [id number] Anai 07:30:00 07:30:00 Seybol d 2022-09-14 2022-09-14 Outpatient PREZAS, ANAI MORGAN [id number] Anai 00:00:00 00:00:00 BECCA Seybol d 2022-09-08 2022-09-08 Outpatient PREZAS, ANAI MORGAN [id number] Anai 00:00:00 00:00:00 BECCA Seybol d 2022-09-07 2022-09-07 Outpatient LAB90 ANAI MORGAN [id number] Anai 14:20:00 14:20:00 Seybol d 2022-09-07 2022-09-07 Outpatient PREZAS, ANAI MORGAN [id number] Anai 13:45:00 13:45:00 BECCA Seybol d 2022-08-14 2022-08-14 Outpatient PREZAS, ANAI MORGAN [id number] Anai 00:00:00 00:00:00 BECCA Seybol d 2022-08-03 2022-08-03 Outpatient PREZAS, ANAI MORGAN [id number] Anai 00:00:00 00:00:00 BECCA Seybol d 2022-07-26 2022-07-26 Outpatient PREZAS, ANAI MORGAN [id number] Anai 08:30:00 08:30:00 BECCA Seybol d 2022-07-17 2022-07-17 Outpatient PREZAS, ANAI MORGAN [id number] Anai 08:00:00 08:00:00 BECCA Seybol d 2022-06-27 2022-06-27 Outpatient LAB90 ANAI MORGAN [id number] Anai 08:30:00 08:30:00 Seybol d 2022-06-26 2022-06-26 Outpatient PREZAS, ANAI MORGAN [id number] Anai 09:00:00 09:00:00 BECCA Seybol d 2022-04-26 2022-04-26 Outpatient PREZAS, ANAI MORGAN [id number] Anai 09:15:00 09:15:00 BECCA Seybol d 2022-04-26 2022-04-26 Outpatient PREZAS, ANAI MORGAN [id number] Anai 08:15:00 08:15:00 BECCA Seybol d 2022-04-09 2022-04-09 Outpatient PREZAS, ANAI MORGAN [id number] Anai 00:00:00 00:00:00 BECCA Seybol d 2022-04-05 2022-04-05 Outpatient PREZAS, ANAI MORGAN [id number] Anai 00:00:00 00:00:00 BECCA Seybol d 2022-04-04 2022-04-04 Outpatient LAB90 ANAI MORGAN [id number] Anai 10:45:00 10:45:00 Seybol d 2022-04-04 2022-04-04 Office PrezaTyler trivedi [id number] Anai 10:15:00 10:30:00 Visit Beccaemile Boyd [id number] Se ybold [id number] 2022-03-30 2022-03-30 Outpatient PREZAS, ANAI MORGAN [id number] Anai 00:00:00 00:00:00 BECCA Seybol d 2022-03-07 2022-03-07 Office PrezaTyler trivedi [id number] Anai 11:30:00 12:00:00 Visit Becca Boyd [id number] Se ybold [id number] 2022-03-07 2022-03-07 Outpatient PREZAS, ANAI MORGAN [id number] Anai 00:00:00 00:00:00 BECCA Seybol d 2022-02-23 2022-02-23 Outpatient LAB90 ANAI MORGAN [id number] Anai 08:30:00 08:30:00 Seybol d 2022-02-23 2022-02-23 Outpatient PREZAS, ANAI MORGAN [id number] Anai 00:00:00 00:00:00 BECCA Seybol d 2022-02-05 2022-02-05 Outpatient PREZAS, ANAI MORGAN [id number] Anai 00:00:00 00:00:00 BECCA Seybol d 2022-02-02 2022-02-02 Outpatient PREZAS, ANAI MORGAN [id number] Anai 00:00:00 00:00:00 BECCA Seybol d 2022-02-01 2022-02-01 Outpatient PREZAS, ANAI MORGAN [id number] Anai 00:00:00 00:00:00 BECCA Seybol d 2022-01-25 2022-01-25 Outpatient PREZAS, ANAI MORGAN [id number] Anai 00:00:00 00:00:00 BECCA Seybol d 2022-01-25 2022-01-25 Outpatient PREZAS, ANAI MORGAN [id number] Anai 00:00:00 00:00:00 BECCA Seybol d 2022-01-24 2022-01-24 Office PrezaTyler trivedi [id number] Anai 09:00:00 09:30:00 Visit Becca Boyd [id number] Se ybold [id number] 2022-01-19 2022-01-19 Outpatient PREANAI ELMORE [id number] Anai 08:30:00 08:30:00 BECCA Seybol d 2021-12-20 2021-12-20 Outpatient PREZANataly, ANAI MORGAN [id number] Anai 00:00:00 00:00:00 BECCA Seybol d 2021-12-14 2021-12-14 Outpatient PREMENDEZ, ANAI MORGAN [id number] Anai 00:00:00 00:00:00 BECCA Seybol d 2021-12-08 2021-12-08 Outpatient BRAD, ANAI MORGAN [id number] Anai 08:00:00 08:00:00 BECCA Seybol d 2021-11-29 2021-11-29 Outpatient ANAI MARIE [id number] Anai 00:00:00 00:00:00 BECCA Seybol d 2021-11-24 2021-11-24 Office Tyler MARIE [id number] Anai 13:30:00 13:30:00 Visit BECCA Oliver [id number] Se ybold [id number] 2021-11-24 2021-11-24 Outpatient PREANAI ELMORE [id number] Anai 09:00:00 09:00:00 BECCA Seybol d 2021-11-21 2021-11-21 Outpatient ANAI MARIE [id number] Anai 00:00:00 00:00:00 BECCA Seybol d 2021-11-20 2021-11-20 Outpatient ANAI MARIE [id number] Anai 00:00:00 00:00:00 BECCA Seybol d 2021-11-20 2021-11-20 Outpatient ANAI MENDIETA [id number] Anai 00:00:00 00:00:00 AVA Seybol d 2021-11-16 2021-11-16 Office Tyler Marie [id number] Anai 08:00:00 08:15:00 Visit Becca Boyd [id number] Se ybold [id number] 2021-11-15 2021-11-15 Outpatient PREZAS, ANAI MORGAN [id number] Anai 00:00:00 00:00:00 BECCA Seybol d 2021-10-31 2021-10-31 Outpatient LAB90 ANAI MORGAN [id number] Anai 10:15:00 10:15:00 Seybol d 2021-10-31 2021-10-31 Office PreTyler elmore [id number] Anai 09:45:00 10:00:00 Visit Becca Boyd [id number] Se ybold [id number] 2021-10-30 2021-10-30 Outpatient PREZAS, ANAI MORGAN [id number] Anai 00:00:00 00:00:00 BECCA Seybol d 2021-09-25 2021-09-25 Outpatient PREZAS, ANAI MORGAN [id number] Anai 00:00:00 00:00:00 BECCA Seybol d 2021-09-22 2021-09-22 Outpatient LAB90 ANAI MORGAN [id number] Anai 08:10:00 08:10:00 Seybol d 2021-09-20 2021-09-20 Outpatient PREZAS, ANAI MORGAN [id number] Anai 00:00:00 00:00:00 BECCA Seybol d 2021-09-18 2021-09-18 Outpatient PREZAS, ANAI MORGAN [id number] Anai 00:00:00 00:00:00 BECCA Seybol d 2021-09-18 2021-09-18 Outpatient PREZAS, ANAI MORGAN [id number] Anai 00:00:00 00:00:00 BECCA Seybol d 2021-09-15 2021-09-15 Office Tyler Marie [id number] Anai 14:45:00 15:30:00 Visit Becca Oliver [id number] Se kwame [id number] Results This patient has no known results.
[2023-01-22 10:52] LABS: Protime INR 1.43
[2023-01-22] MEDS ORDERED: MORPHINE 4 MG/ML SYR ONE (10:55)
[2023-01-22] MEDS ORDERED: ONDANSETRON 4 MG/2 ML VIAL ONE (10:55)
[2023-01-22] MEDS ORDERED: dilTIAZem HCL 25 MG/5 ML VIAL IV ONE (10:56)
[2023-01-22 10:57] LABS: Absolute Lymphocytes (CBC) 0.8 K/uL (0.7-4.9); Hematocrit 30.8 % (39.6-49.0); Lymphocytes % 21.6 % (15.3-44.8); MCV 94.3 fL (80-100); MPV 7.2 fL (7.6-11.3); RBC Red Blood Cell Count 3.27 M/uL (4.33-5.43)
[2023-01-22 11:10] LABS: Albumin 3.1 g/dL (3.4-5.0); Bilirubin Direct 0.6 mg/dL (0-0.2); Bilirubin Indirect, Calculated 0.3 mg/dL (0.2-0.8); Bilirubin Total 0.9 mg/dL (0.2-1.0); Potassium 4.6 mEq/L (3.5-5.1); Protein, Total 6.3 g/dL (6.4-8.2)
--- NOTE | 2023-01-22 11:11 | RAD REPORT ---
EXAM DESCRIPTION: CTAbdomen Pelvis W Contrast - 01/22/2023 11:00 am CLINICAL HISTORY: Abdominal pain. ABD PAIN COMPARISON: Abdomen Pelvis W Contrast dated 09/13/2022; Abdomen Pelvis W Contrast dated 02/26/2022; Abdomen Pelvis W Contrast dated 10/28/2021; Abdomen Pelvis W Contrast dated 08/02/2019 TECHNIQUE: Biphasic CT imaging of the abdomen and pelvis was performed with 100 ml non-ionic IV cont rast. All CT scans are performed using dose optimization technique as appropriate and may include automated exposure control or mA/KV adjustment according to patient size. FINDINGS: Small left small to moderate right pleural effusion.Cardiomegaly is noted. Mild atelectasi s in both lung bases. Liver parenchyma is heterogenous with nodular contour along the inferior right margin of the liver. T he spleen is normal size. Mild pancreatic atrophy. Both adrenal glands and kidneys are unremarkable. Trace ascites. No bowel obstruction or free air. Sigmoid diverticulosis coli without diverticulitis. The appendix is normal. No evidence of significant lymphadenopathy. Moderate lumbar degenerative changes. 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 Trace ascites. Cardiomegaly with small pleural effusions, slightly greater on the right. Sigmoid diverticulosis coli without diverticulitis.
--- NOTE | 2023-01-22 11:19 | RAD REPORT ---
EXAM DESCRIPTION: RAD - Chest Single View - 01/22/2023 11:10 am CLINICAL HISTORY: DYSPNEA Chest pain. COMPARISON: Chest Single View dated 01/18/2023; Chest Single View dated 09/13/2022; Chest Single View dated 02/26/2022; Chest Single View dated 10/28/2021 FINDINGS: Portable technique limits examination quality. Mild interstitial pulmonary edema. The heart is significantly enlarged. No displaced fractures. IMPRESSION: Mild CHF versus volume overload.
[2023-01-22 12:00] LABS: Platelet Estimate ADEQ
[2023-01-22 12:01] LABS: Blood Morphology Comment NOT SEEN (NOT SEEN)
--- NOTE | 2023-01-22 12:19 | EDPHYS ---
Physician Documentation [facility] Name: Juan Stringer Age: 77 yrs Sex: Male : 1945 Arrival Date: 01/22/2023 Time: 10:18 Bed 13 Private MD: Raymundo Marie ED Physician Amauri Colon HPI: 01/22 10:59 This 77 yrs old Male presents to ER via Unassigned with complaints of rt Abdominal Pain, Shortness Of Breath. 10:59 Patient with history of head and neck cancer, ascites, presents to the ED with rt worsening sore throat, abdominal pain with swelling as well as difficulty breathing since last night. The patient's daughter states that this is consistent with prior episodes of ascites. Denies vomiting. He states that he had a small amount of soft stool this morning. Denies other acute complaints at this time. Symptoms are moderate in severity, aching nature, nonradiating, no other aggravating alleviating factors.. Historical: - Home Meds: 11:10 atorvastatin 10 mg Oral tab 1 tab once daily [Active]; carvedilol 25 mg Oral tab 1 tab eh3 2 times per day [Active]; citalopram 10 mg tab 1 tab once daily [Active]; furosemide 40 mg Oral tab 1 tab once daily [Active]; glipizide 10 mg Oral tab 1 tab 2 times per day [Active]; levothyroxine 112 mcg cap 1 cap once daily [Active]; metformin 1,000 mg Oral tab 1 tab 2 times per day [Active]; omeprazole 20 mg Oral cpDR 1 cap once daily [Active]; pantoprazole 40 mg Oral TbEC 1 tab once daily [Active]; Xarelto 20 mg Oral tab 1 tab once daily [Active]; spironolactone 25 mg Oral tab 1 tab once daily [Active]; cetirizine 5 mg oral tablet daily [Active]; Advair Diskus Inhl [Active]; - PMHx: 11:10 AFIB; ascites; chemotherapy; COPD; Diabetes - NIDDM; Hypertensive disorder; eh3 Hypothyroidism; throat cancer; - PSHx: 11:10 Cholecystectomy; eh3 - Immunization history:: Adult Immunizations up to date. - Social history:: Smoking status: Patient/guardian denies using tobacco, Stopped _ months ago 3 Patient/guardian denies using alcohol, the patient reports quitting approximately 4 years ago. - Family history:: not pertinent. ROS: 10:59 Constitutional: Negative for fever, chills, and weight loss, Cardiovascular: Negative rt for chest pain, palpitations, and edema, MS/Extremity: Negative for injury and deformity, Skin: Negative for injury, rash, and discoloration, Neuro: Negative for headache, weakness, numbness, tingling, and seizure, Psych: Negative for depression, anxiety, suicide ideation, homicidal ideation, and hallucinations. 10:59 ENT: Positive for sore throat, Negative for rhinorrhea. 10:59 Respiratory: Positive for shortness of breath, Negative for cough. 10:59 Abdomen/GI: Positive for abdominal pain, swelling. Exam: 10:59 Constitutional: This is a well developed, well nourished patient who is awake, alert, rt and in no acute distress. Head/Face: Normocephalic, atraumatic. ENT: Nares patent. No nasal discharge, no septal abnormalities noted. Tympanic membranes are normal and external auditory canals are clear. Oropharynx with no redness, swelling, or masses, exudates, or evidence of obstruction, uvula midline. Mucous membranes moist. Chest/axilla: Normal chest wall appearance and motion. Nontender with no deformity. No lesions are appreciated. Cardiovascular: Regular rate and rhythm with a normal S1 and S2. No gallops, murmurs, or rubs. Normal PMI, no JVD. No pulse deficits. Respiratory: Lungs have equal breath sounds bilaterally, clear to auscultation and percussion. No rales, rhonchi or wheezes noted. No increased work of breathing, no retractions or nasal flaring. Skin: Warm, dry with normal turgor. Normal color with no rashes, no lesions, and no evidence of cellulitis. MS/ Extremity: Pulses equal, no cyanosis. Neurovascular intact. Full, normal range of motion. Neuro: Awake and alert, GCS 15, oriented to person, place, time, and situation. Cranial nerves II-XII grossly intact. Motor strength 5/5 in all extremities. Sensory grossly intact. Cerebellar exam normal. Normal gait. Psych: Awake, alert, with orientation to person, place and time. Behavior, mood, and affect are within normal limits. 10:59 Abdomen/GI: Mild distention noted with tenderness diffusely, no rebound, no guarding. 11:07 ECG was reviewed by the Attending Physician. rt Vital Signs: 10:30 BP 116 / 90; Pulse 149; Resp 26; Temp 96.1(O); Pulse Ox 98% ; Weight 90.26 kg; Height 5 eh3 ft. 5 in. ; 11:30 BP 111 / 75; Pulse 92; Resp 23; Pulse Ox 95% on R/A; eh3 12:00 BP 122 / 72; Pulse 91; Resp 22; Pulse Ox 93% on R/A; eh3 12:30 BP 127 / 78; Pulse 89; Resp 21; Pulse Ox 95% on R/A; eh3 13:00 BP 110 / 78; Pulse 93; Resp 22; Pulse Ox 95% on R/A; eh3 13:30 BP 111 / 54; Pulse 96; Resp 25; Pulse Ox 94% on R/A; eh3 14:00 BP 98 / 65; Pulse 93; Resp 25; Pulse Ox 95% on R/A; eh3 14:30 BP 119 / 75; Pulse 91; Resp 25; Pulse Ox 95% on R/A; eh3 15:00 BP 126 / 73; Pulse 95; Resp 20; Pulse Ox 98% on 1.5 lpm NC; eh3 15:30 BP 116 / 81; Pulse 92; Resp 24; Pulse Ox 97% on 1.5 lpm NC; eh3 10:30 Body Mass Index 33.11 (90.26 kg, 165.1 cm) eh3 MDM: 10:29 Patient medically screened. rt 18:19 Differential diagnosis: A-fib, pneumonia, pneumothorax, congestive heart failure. Data rt reviewed: vital signs, nurses notes, lab test result(s), EKG, radiologic studies. Consideration of Admission/Observation Patient was admitted/placed on observation. Management of patient was discussed with the following: Hospitalist: Agrees to admit. [employer] Instrument Maker: Discussed with cardiology, recommends amiodarone bolus and drip. I considered the following discharge prescriptions or medication management in the emergency department Medications were administered in the Emergency Department. See MAR. Test considered but Not performed: CT: Low suspicion for PE, CT angiogram not indicated. Care significantly affected by the following chronic conditions: A-fib, COPD. Counseling: I had a detailed discussion with the patient and/or guardian regarding: the historical points, exam findings, and any diagnostic results supporting the discharge/admit diagnosis, lab results, radiology results, the need for further work-up and treatment in the hospital. 01/22 10:35 Order name: Basic Metabolic Panel; Complete Time: 11: rt 01/22 10:35 Order name: CBC with Diff; Complete Time: 12: rt 01/22 10:35 Order name: LFT's; Complete Time: : rt 01/22 10:35 Order name: Magnesium; Complete Time: : rt 01/22 10:35 Order name: NT PRO-BNP; Complete Time: : rt 01/22 10:35 Order name: PT-INR; Complete Time: : rt 01/22 10:35 Order name: Troponin HS; Complete Time: :01/22 10:35 Order name: Lipase; Complete Time: : rt 01/22 11:01 Order name: Manual Differential; Complete Time: 12: [facility] 01/22 10:35 Order name: XRAY Chest (1 view); Complete Time: :01/22 10:35 Order name: CT Abd/Pelvis - IV Contrast Only; Complete Time: : rt 01/22 10:35 Order name: EKG; Complete Time: 10:36 rt 01/22 12:48 Order name: CONS Physician Consult [facility] 01/22 12:49 Order name: Heart Healthy [facility] 01/22 10:35 Order name: Cardiac monitoring; Complete Time: 10:44 01/22 10:35 Order name: EKG - Nurse/Tech; Complete Time: 10:01/22 10:35 Order name: IV Saline Lock; Complete Time: 10:01/22 10:35 Order name: Labs collected and sent; Complete Time: 10: rt 01/22 10:35 Order name: O2 Per Protocol; Complete Time: :01/22 10:35 Order name: O2 Sat Monitoring; Complete Time: 10:44 rt EC:07 Rate is 130 beats/min. Rhythm is irregularly irregular, A fib with Left bundle branch rt block. QT interval is normal. No Q waves. Interpreted by me. Administered Medications: 10:50 Drug: morphine IVP or IV 4 mg Route: IVP; Infused Over: 4 mins; Site: right antecubital;3 12:00 Follow up: Response: No adverse reaction eh3 10:50 Drug: Ondansetron IVP 4 mg Route: IVP; Site: right antecubital; 3 12:00 Follow up: Response: No adverse reaction eh3 10:50 Drug: Diltiazem IVP 10 mg Route: IVP; Site: right antecubital; 3 12:00 Follow up: Response: No adverse reaction 3 12:42 Drug: Furosemide IVP 40 mg Route: IVP; Site: right antecubital; eh3 13:30 Follow up: Response: No adverse reaction 3 12:45 Drug: amiodarone IVPB 150 mg Volume: 100 ml; Route: IVPB; Infused Over: 10 mins; Site: [facility] right antecubital; 12:55 Follow up: Response: No adverse reaction; IV Status: Completed infusion; IV Intake: eh3 100ml 12:55 Drug: amiodarone IVPB 900 mg, D5W IV 500 ml Route: IVPB; Rate: 1 mg/min; [address]; 15:55 Follow up: Response: No adverse reaction; IV Status: Infusion continued upon admission; eh3 IV Intake: 100ml 13:00 Drug: Magnesium Sulfate IVPB 2 grams Route: IVPB; Infused Over: 2 hrs; Site: right [address]; 15:00 Follow up: Response: No adverse reaction; IV Status: Completed infusion; IV Intake: eh3 100ml Disposition: 18:19 Critical Care:. rt Disposition Summary: 01/22/23 12:18 Hospitalization Ordered Hospitalization Status: Observation rt Provider: Antoni Doss rt Condition: Stable rt Problem: an acute exacerbation rt Symptoms: have improved rt Bed/Room Type: Standard rt Location: Intensive Care Unit(01/22/23 12:44) rt Room Assignment: 2-(01/22/23 15:03) bd Diagnosis - A-fib with RVR rt - Congestive heart failure exacerbation rt Forms: - Medication Reconciliation Form rt - SBAR form rt Critical care time excluding procedures: 18:19 Critical care time: Bedside Care: 30 minutes, Consultation: 10 minutes. Total time: 40 rt minutes Signatures: Dispatcher [employer] Leanne Kyle Erin, RN RN eh3 Amauri Colon MD MD rt Corrections: (The following items were deleted from the chart) 12:18 Telemetry/MedSurg (observation) rt rt : 12:18 rt rt 15:03 12:44 rt bd
--- NOTE | 2023-01-22 12:19 | ER ---
Nurse's Notes [facility] Name: Juan Stringer Age: 77 yrs Sex: Male : 1945 Arrival Date: 01/22/2023 Time: 10:18 Bed 13 Private MD: Raymundo Marie Diagnosis: A-fib with RVR;Congestive heart failure exacerbation Presentation: 01/22 10:30 Chief complaint: Patient's son or daughter states: abd pain and SOB started last night, eh3 recent hx of throat cancer, had last chemo/radiation last week. Took laxative last night and had BM this morning. Coronavirus screen: Vaccine status: Patient reports receiving the 2nd dose of the covid vaccine. Ebola Screen: No symptoms or risks identified at this time. Initial Sepsis Screen: Does the patient meet any 2 criteria? HR > 90 bpm. No. Patient's initial sepsis screen is negative. Does the patient have a suspected source of infection? No. Patient's initial sepsis screen is negative. Risk Assessment: Do you want to hurt yourself or someone else? Patient reports no desire to harm self or others. Onset of symptoms was January 22, 2023. 10:30 Method Of Arrival: Wheelchair eh3 10:30 Acuity: KRISTEL 3 eh3 Triage Assessment: 10:30 General: Appears in no apparent distress. uncomfortable, Behavior is cooperative, eh3 appropriate for age. Pain: Complains of pain in abdomen. Neuro: Level of Consciousness is awake, alert, obeys commands, Oriented to person, place, time, situation. Cardiovascular: Capillary refill < 3 seconds Patient's skin is warm and dry. Respiratory: Airway is patent Respiratory effort is even, unlabored, Respiratory pattern is regular, symmetrical. GI: Abdomen is noted to have ascites. Historical: - Home Meds: 11:10 atorvastatin 10 mg Oral tab 1 tab once daily [Active]; carvedilol 25 mg Oral tab 1 tab eh3 2 times per day [Active]; citalopram 10 mg tab 1 tab once daily [Active]; furosemide 40 mg Oral tab 1 tab once daily [Active]; glipizide 10 mg Oral tab 1 tab 2 times per day [Active]; levothyroxine 112 mcg cap 1 cap once daily [Active]; metformin 1,000 mg Oral tab 1 tab 2 times per day [Active]; omeprazole 20 mg Oral cpDR 1 cap once daily [Active]; pantoprazole 40 mg Oral TbEC 1 tab once daily [Active]; Xarelto 20 mg Oral tab 1 tab once daily [Active]; spironolactone 25 mg Oral tab 1 tab once daily [Active]; cetirizine 5 mg oral tablet daily [Active]; Advair Diskus Inhl [Active]; - PMHx: 11:10 AFIB; ascites; chemotherapy; COPD; Diabetes - NIDDM; Hypertensive disorder; eh3 Hypothyroidism; throat cancer; - PSHx: 11:10 Cholecystectomy; eh3 - Immunization history:: Adult Immunizations up to date. - Social history:: Smoking status: Patient/guardian denies using tobacco, Stopped _ months ago 3 Patient/guardian denies using alcohol, the patient reports quitting approximately 4 years ago. - Family history:: not pertinent. Screenin:30 [facility] ED Fall Risk Assessment (Adult) Score/Fall Risk Level 0 - 2 = Low Risk. Abuse eh3 screen: Denies threats or abuse. Denies injuries from another. Nutritional screening: No deficits noted. Tuberculosis screening: No symptoms or risk factors identified. Assessment: 10:30 Reassessment: No changes from previously documented assessment. See triage assessment. eh3 10:30 GI: Bowel sounds present X 4 quads. eh3 11:30 Reassessment: Patient appears in no apparent distress at this time. Patient and/or 3 family updated on plan of care and expected duration. Pain level reassessed. Patient is alert, oriented x 3, equal unlabored respirations, skin warm/dry/pink. 12:30 Reassessment: Patient appears in no apparent distress at this time. Patient and/or eh3 family updated on plan of care and expected duration. Pain level reassessed. Patient is alert, oriented x 3, equal unlabored respirations, skin warm/dry/pink. 13:30 Reassessment: Patient appears in no apparent distress at this time. Patient and/or eh3 family updated on plan of care and expected duration. Pain level reassessed. Patient is alert, oriented x 3, equal unlabored respirations, skin warm/dry/pink. 14:30 Reassessment: Patient appears in no apparent distress at this time. Patient and/or eh3 family updated on plan of care and expected duration. Pain level reassessed. Patient is alert, oriented x 3, equal unlabored respirations, skin warm/dry/pink. 15:30 Reassessment: Patient appears in no apparent distress at this time. Patient and/or eh3 family updated on plan of care and expected duration. Pain level reassessed. Patient is alert, oriented x 3, equal unlabored respirations, skin warm/dry/pink. Vital Signs: 10:30 BP 116 / 90; Pulse 149; Resp 26; Temp 96.1(O); Pulse Ox 98% ; Weight 90.26 kg; Height 5 eh3 ft. 5 in. ; 11:30 BP 111 / 75; Pulse 92; Resp 23; Pulse Ox 95% on R/A; eh3 12:00 BP 122 / 72; Pulse 91; Resp 22; Pulse Ox 93% on R/A; eh3 12:30 BP 127 / 78; Pulse 89; Resp 21; Pulse Ox 95% on R/A; eh3 13:00 BP 110 / 78; Pulse 93; Resp 22; Pulse Ox 95% on R/A; eh3 13:30 BP 111 / 54; Pulse 96; Resp 25; Pulse Ox 94% on R/A; eh3 14:00 BP 98 / 65; Pulse 93; Resp 25; Pulse Ox 95% on R/A; eh3 14:30 BP 119 / 75; Pulse 91; Resp 25; Pulse Ox 95% on R/A; eh3 15:00 BP 126 / 73; Pulse 95; Resp 20; Pulse Ox 98% on 1.5 lpm NC; eh3 15:30 BP 116 / 81; Pulse 92; Resp 24; Pulse Ox 97% on 1.5 lpm NC; eh3 10:30 Body Mass Index 33.11 (90.26 kg, 165.1 cm) 3 ED Course: 10:18 Patient arrived in ED. rg4 10:18 Raymundo Marie DO is Private Physician. rg4 10:19 Amauri Colon MD is Attending Physician. rt 10:30 Patient has correct armband on for positive identification. Bed in low position. Call [facility] light in reach. Side rails up X2. Client placed on continuous cardiac and pulse oximetry monitoring. NIBP monitoring applied. 10:30 Arm band placed on. eh3 10:31 Kelsey Diego, RN is Primary Nurse. eh3 10:39 Inserted saline lock: 20 gauge in right antecubital area, using aseptic technique. ds4 Blood collected. 11:03 CT Abd/Pelvis - IV Contrast Only In Process Unspecified. EDMS 11:10 Triage completed. eh3 11:12 XRAY Chest (1 view) In Process Unspecified. EDMS 12:18 Antoni Doss MD is Hospitalizing Provider. rt 15:54 No provider procedures requiring assistance completed. Patient admitted, IV remains in eh3 place. Administered Medications: 10:50 Drug: morphine IVP or IV 4 mg Route: IVP; Infused Over: 4 mins; Site: right antecubital;3 12:00 Follow up: Response: No adverse reaction 3 10:50 Drug: Ondansetron IVP 4 mg Route: IVP; Site: right antecubital; 3 12:00 Follow up: Response: No adverse reaction 3 10:50 Drug: Diltiazem IVP 10 mg Route: IVP; Site: right antecubital; 3 12:00 Follow up: Response: No adverse reaction eh3 12:42 Drug: Furosemide IVP 40 mg Route: IVP; Site: right antecubital; 3 13:30 Follow up: Response: No adverse reaction 3 12:45 Drug: amiodarone IVPB 150 mg Volume: 100 ml; Route: IVPB; Infused Over: 10 mins; Site: [facility] right antecubital; 12:55 Follow up: Response: No adverse reaction; IV Status: Completed infusion; IV Intake: eh3 100ml 12:55 Drug: amiodarone IVPB 900 mg, D5W IV 500 ml Route: IVPB; Rate: 1 mg/min; Site: right [facility] antecubital; 15:55 Follow up: Response: No adverse reaction; IV Status: Infusion continued upon admission; 3 IV Intake: 100ml 13:00 Drug: Magnesium Sulfate IVPB 2 grams Route: IVPB; Infused Over: 2 hrs; Site: right [facility] antecubital; 15:00 Follow up: Response: No adverse reaction; IV Status: Completed infusion; IV Intake: eh3 100ml Medication: 15:54 VIS not applicable for this client. eh3 Intake: 12:55 IV: 100ml; Total: 100ml. eh3 15:00 IV: 100ml; Total: 200ml. eh3 15:55 IV: 100ml; Total: 300ml. eh3 Outcome: 12:18 Decision to Hospitalize by Provider. rt 15:55 Admitted to ICU accompanied by nurse, via stretcher, room 2, Report called to Magalie 3 15:55 Condition: stable 15:55 Instructed on the need for admit. 16:50 Patient left the ED. cm10 Signatures: Dispatcher [employer] EDMarc Carlson ds4 Mary Horvath rg4 Kelsey Diego, RN RN 3 Amauri Colon MD MD rt Addie Still, RN RN cm10
[2023-01-22] MEDS ORDERED: Magnesium Sulfate 2gm IVPB 2 G/50 ML BAG IV ONE (12:44)
[2023-01-22] MEDS ORDERED: AMIODARONE HCL 150 MG/3 ML INJ IV ONE (12:44)
[2023-01-22] MEDS ORDERED: AMIODARONE IN DEXTROSE,ISO-OSM 360 MG/200 ML BAG IV ONE (12:44)
[2023-01-22] MEDS ORDERED: FUROSEMIDE 40 MG/4 ML VIAL ONE (12:44)
[2023-01-22] MEDS ORDERED: D5W 100 ML IV ONE (12:45)
[2023-01-22] MEDS ORDERED: AMIODARONE HCL 900 MG in Dextrose 5%-Water 482 ML IV SCH (13:00)
--- NOTE | 2023-01-22 17:02 | P.HP ---
Certification for Inpatient Patient admitted to: Inpatient With expected LOS: >2 Midnights Patient will require the following post-hospital care: None Practitioner: I am a practitioner with admitting privileges, knowledge of patient current condition, hospital course, and medical plan of care. Services: Services provided to patient in accordance with Admission requirements found in Title 42 Section 412.3 of the Code of Federal Regulations Patient History Date of Service: 01/22/23 Primary Care Provider: True Marie Reason for admission: atrial fib History of Present Illness: Patient is a pleasant gentleman. He has a history of alcoholic cirhossis with recurrent ascitis. He has a history of a fib. The patient has been having some abdominal pain today. Was thinking it was ascitis. The patient came to the ER. The patient was found to be in Afib with RVR. Was started on amiodarone and admitted. Allergies No Known Drug Allergies Allergy (Verified 09/07/18 20:11) Unknown Home Medications: Acetaminophen with Codeine [Acetaminophen-Cod #3 Tablet] 1 tab PO Q6H PRN 11/16/21 Carvedilol [Coreg] 1 tab PO BIDWM 11/16/21 Cetirizine HCl [Zyrtec*] 1 tab PO DAILY 11/16/21 Clotrimazole [Antifungal] 1 appl TOP Q12H 11/16/21 Empagliflozin [Jardiance] 1 tab PO DAILY 11/16/21 Furosemide 1 tab PO DAILY 11/16/21 Glipizide [Glipizide ER] 1 tab PO BID 11/16/21 Levothyroxine Sodium 1 tab PO [id number] 11/16/21 Lidocaine 5% [Lidocaine HCl] 1 appl TOP DIRECTED PRN 11/16/21 Metformin HCl 1 tab PO BID 11/16/21 Omeprazole 1 tab PO DAILY 11/16/21 Paroxetine HCl [Paxil] 1 tab PO DAILY 11/16/21 Rivaroxaban [Xarelto] 1 tab PO DAILY AT SUPPER 11/16/21 Spironolactone 1 tab PO DAILY 11/16/21 Umeclidinium [place] [Incruse Ellipta] 1 puff IN DAILY 11/16/21 Colchicine [Colcrys *] 0.6 mg PO BID #14 tab 11/18/21 Minocycline HCl 100 mg PO BID #14 capsule 11/18/21 levoFLOXacin [Levaquin] 500 mg PO DAILY #10 tab 11/18/21 predniSONE [Prednisone*] 20 mg PO BID #6 tab 11/18/21 Cephalexin 500 mg PO BID 11/28/21 - Past Medical/Surgical History Diabetic: Yes -: Hypothyroidism -: DM-NIDDM -: AFIB -: HTN -: COPD -: ascites -: Cholecystectomy -: Rt elbow sx - Family History Sister -: Hypertension, Diabetes - Social History Alcohol use: No CD- Drugs: No Caffeine use: Yes Review of Systems 10-point ROS is otherwise unremarkable Gastrointestinal: Abdominal Pain, Distention Physical Examination - Physical Exam General: Alert, Mild distress HEENT: Atraumatic, PERRLA, Mucous membr. moist/pink, EOMI, Sclerae nonicteric Neck: Supple, 2+ carotid pulse no bruit, No LAD, Without JVD or thyroid abnormality Respiratory: Clear to auscultation bilaterally, Normal air movement Cardiovascular: Regular rate/rhythm, Normal S1 S2 Gastrointestinal: Normal bowel sounds, Distended Musculoskeletal: No tenderness Integumentary: No rashes Neurological: Normal gait, Normal speech, Normal strength at 5/5 x4 extr, Normal tone, Normal affect Lymphatics: No axilla or inguinal lymphadenopathy - Studies Laboratory Data (last 24 hrs) 01/22/23 10:39: PT 15.7 H, INR 1.43 01/22/23 10:39: WBC 3.90 L, Hgb 10.2 L, Hct 30.8 L, Plt Count 204 01/22/23 10:39: Sodium 138, Potassium 4.6, BUN 27 H, Creatinine 1.23, Glucose 122 H, Magnesium 1.0 L*, Total Bilirubin 0.9, AST 38 H, ALT 29, Alkaline Phosphatase 62, Lipase 15 Assessment and Plan - Problems (Diagnosis) (1) Atrial fibrillation with RVR Current Visit: Yes Status: Chronic Plan: on coreg. Will start him on amiodaron. Will check a echo. He did have a severe murumur. Will consider anticoagulation. His chadvasc score is 3. Will wait till after he is seen by Dr. Jones. In case any procedures are planned. (2) Diabetes Current Visit: Yes Status: Acute Plan: restrart his home medication. Add insulin sliding scale Qualifiers: Diabetes mellitus type: type 2 Diabetes mellitus skilled nursing insulin use: without skilled nursing use Diabetes mellitus complication status: without complication Qualified Code(s): E11.9 - Type 2 diabetes mellitus without complications (3) Alcoholic cirrhosis of liver Current Visit: Yes Status: Acute Plan: will keep him NPO for now. His belly is tender but distended. Tympanic. So not likely to be fluid. We can decompress with an OG tube. Will check a flat plate xray in the am. Qualifiers: Ascites presence: without ascites Qualified Code(s): K70.30 - Alcoholic cirrhosis of liver without ascites (4) Hypothyroidism Current Visit: Yes Status: Acute Plan: check a tsh. restart his home levothyroxine Qualifiers: Hypothyroidism type: unspecified Qualified Code(s): E03.9 - Hypothyroidism, unspecified Discharge Plan: Home Plan to discharge in: 48 Hours - Advance Directives Does patient have a Living Will: No Does patient have a Durable POA for Healthcare: No - Code Status/Comfort Care Code Status Assessed: Yes Code Status: Full Code Physician Review: Patient Assessed, Agree with Above Assessment and Plan Critical Care: No Time Spent Managing Pts Care (In Minutes): 60
[2023-01-22] MEDS ORDERED: GLUCAGON 1 MG/VIAL IM PRN (17:20)
[2023-01-22] MEDS ORDERED: D10W 250 ML BAG IV PRN (17:20)
[2023-01-22] MEDS ORDERED: RIVAROXABAN 20 MG TABLET PO SCH (17:40)
[2023-01-22] MEDS: METFORMIN HCL 500 MG TAB PO SCH (17:44)
[2023-01-22] MEDS: carvediloL 25 MG TAB PO SCH (17:56)
[2023-01-22] MEDS ORDERED: D5 0.45 NS 1,000 ML IV SCH ×2 (18:00→19:00)
[2023-01-22] MEDS: HYDROMORPHONE HCL 0.5 MG/0.5 ML INJ IV PRN (19:08)
--- NOTE | 2023-01-22 20:34 | EKG ---
Test Date: 2023-01-22 Test Time: 10:39:43 [place] Barrel Ribs: ERROL MEASUREMENT RESULTS: Intervals: Rate: 130 AL: QRSD: 138 QT: 300 QTc: 441 [place]: P: AL: QRS: 93 T: -80 INTERPRETIVE STATEMENTS: Atrial fibrillation Nonspecific intraventricular block T wave abnormality, consider inferolateral ischemia or digitalis effect Abnormal ECG Compared to ECG 01/18/2023 01:07:35 T-wave abnormality now present Possible ischemia now present Left bundle-branch block no longer present Electronically Signed On 01-22-23 20:32:38 CDT by Robert Mercado
[2023-01-22] MEDS: INSULIN -REGULAR HUMAN 50 UNIT/0.5 ML ML SQ SCH (20:37)
[2023-01-22] MEDS: MINOCYCLINE HCL 50 MG CAP PO SCH (20:37)
[2023-01-22] MEDS ORDERED: FUROSEMIDE 40 MG/4 ML VIAL IV ONE (20:56)
[2023-01-22] MEDS ORDERED: MINOCYCLINE HCL 100 MG PO SCH (21:00)
[2023-01-22] MEDS ORDERED: HOME MED 1 EA UNK (Metformin Hcl [Metformin Hcl] 1,000 MG Tablet) PO SCH (21:00)
[2023-01-23] MEDS: HYDROMORPHONE HCL 0.5 MG/0.5 ML INJ IV PRN ×2 (04:11→23:04)
[2023-01-23] MEDS: LEVOTHYROXINE SOD 0.112 MG TAB PO SCH (05:57)
[2023-01-23 06:47] LABS: Absolute Lymphocytes (CBC) 0.5 K/uL (0.7-4.9); Hematocrit 29.6 % (39.6-49.0); Lymphocytes % 6.9 % (15.3-44.8); MCV 94.5 fL (80-100); MPV 7.3 fL (7.6-11.3); RBC Red Blood Cell Count 3.14 M/uL (4.33-5.43)
[2023-01-23 06:54] LABS: Protime INR 2.31
[2023-01-23 07:13] LABS: Bilirubin Total 1.1 mg/dL (0.2-1.0); Potassium 4.9 mEq/L (3.5-5.1); Protein, Total 6.3 g/dL (6.4-8.2)
[2023-01-23 07:17] LABS: Thyroid Stimulating Hormone 4.77 uIU/mL (0.358-3.740)
[2023-01-23] MEDS: INSULIN -REGULAR HUMAN 50 UNIT/0.5 ML ML SQ SCH ×4 (07:30→21:00)
[2023-01-23] MEDS ORDERED: carvediloL 25 MG TAB PO SCH (08:00)
[2023-01-23] MEDS: METFORMIN HCL 500 MG TAB PO SCH ×2 (08:00→08:41)
[2023-01-23] MEDS: HOME MED 1 EA UNK (Empagliflozin [Jardiance] 25 MG Tablet) PO SCH (08:01)
[2023-01-23] MEDS: UMECLIDINIUM BROMIDE 62.5 MCG IH SCH (08:07)
[2023-01-23] MEDS: carvediloL 25 MG TAB PO SCH (08:41)
[2023-01-23] MEDS: PANTOPRAZOLE 40MG TABLET PO SCH (08:41)
[2023-01-23] MEDS: MINOCYCLINE HCL 50 MG CAP PO SCH (08:45)
--- NOTE | 2023-01-23 08:57 | P.PN ---
Subjective Date of Service: 01/23/23 Primary Care Provider: True Marie Chief Complaint: atrial fib Subjective: No new changes Review of Systems 10-point ROS is otherwise unremarkable General: Other (feels hot and uncomfortable) Physical Examination - Vital Signs Temperature: 97.1 F Blood Pressure: 129/76 Pulse: 114 Respirations: 25 Pulse Ox (%): 98 - Physical Exam General: Alert, In no apparent distress HEENT: Atraumatic, PERRLA, EOMI Neck: Supple, JVD not distended Respiratory: Clear to auscultation bilaterally, Normal air movement Cardiovascular: Regular rate/rhythm, Normal S1 S2, Systolic murmur (heard best in all areas and stomach) Gastrointestinal: Normal bowel sounds, No tenderness, Distended Musculoskeletal: No tenderness Integumentary: No rashes Neurological: Normal speech, Normal tone, Normal affect Lymphatics: No axilla or inguinal lymphadenopathy - Studies Laboratory Data (last 24 hrs) 01/22/23 10:39: PT 15.7 H, INR 1.43 01/22/23 10:39: WBC 3.90 L, Hgb 10.2 L, Hct 30.8 L, Plt Count 204 01/22/23 10:39: Sodium 138, Potassium 4.6, BUN 27 H, Creatinine 1.23, Glucose 122 H, Magnesium 1.0 L*, Total Bilirubin 0.9, AST 38 H, ALT 29, Alkaline Phosphatase 62, Lipase 15 Assessment And Plan - Current Problems (Diagnosis) (1) Atrial fibrillation with RVR Current Visit: Yes Status: Chronic Plan: on coreg. Will start him on amiodaron. Will check a echo. He did have a severe murumur. Will consider anticoagulation. His chadvasc score is 3. Will wait till after he is seen by Dr. Jones. In case any procedures are planned. 01/23 Patient is still on amiodarone. maxed dosage of carvedilol. consider digoxin. Will wait till we get an echocardiogram (2) Systolic murmur Current Visit: Yes Status: Acute Plan: awaiting a echocardiogram. he has a very prominent murmur. Dr. Garg is his regular physician (3) Diabetes Current Visit: Yes Status: Acute Plan: restrart his home medication. Add insulin sliding scale 01/23 a1c of 9.0 Will hold metformin for 48 hours as he had contrast. Will have his daughters bring his home meds Qualifiers: Diabetes mellitus type: type 2 Diabetes mellitus watermelon inspector insulin use: without senior care use Diabetes mellitus complication status: without complication Qualified Code(s): E11.9 - Type 2 diabetes mellitus without complications (4) Acute renal failure Current Visit: Yes Status: Acute Plan: May be due to the contrast. Will restart the fluids on the patient . Qualifiers: Acute renal failure type: unspecified Qualified Code(s): N17.9 - Acute kidney failure, unspecified (5) Alcoholic cirrhosis of liver Current Visit: Yes Status: Acute Plan: will keep him NPO for now. His belly is tender but distended. Tympanic. So not likely to be fluid. We can decompress with an OG tube. Will check a flat plate xray in the am. Qualifiers: Ascites presence: without ascites Qualified Code(s): K70.30 - Alcoholic cirrhosis of liver without ascites (6) Hypothyroidism Current Visit: Yes Status: Acute Plan: check a tsh. restart his home levothyroxine Qualifiers: Hypothyroidism type: unspecified Qualified Code(s): E03.9 - Hypothyroidism, unspecified (7) Laryngeal cancer Current Visit: Yes Status: Acute Plan: s/p chemoradiation therapy. Will need to continue his treatment as an outpatient with Dr. Weldon Physician Review: Patient Assessed, Agree with Above Assessment and Plan
[2023-01-23] MEDS ORDERED: HOME MED 1 EA UNK (Omeprazole [Omeprazole] 20 MG Tablet.Dr) PO SCH (09:00)
[2023-01-23 09:28] LABS: Blood Morphology Comment NOTED (NOT SEEN); Platelet Estimate ADEQ; Polychromasia 1+
[2023-01-23] MEDS ORDERED: Magnesium Sulfate 2gm IVPB 2 G/50 ML BAG IV ONE (09:28)
[2023-01-23] MEDS: NA CHLORIDE 0.9% 1,000 ML IV SCH (10:42)
[2023-01-23] MEDS: METOPROLOL TAR 50 MG TAB PO SCH ×2 (14:27→21:00)
[2023-01-23] MEDS: AMIODARONE HCL 200 MG TAB PO SCH (14:28)
[2023-01-23] MEDS ORDERED: MAGNESIUM SULFATE 1 gm IVPB 1 GM/100 ML BAG IV ONE (18:14)
--- NOTE | 2023-01-23 18:46 | CON ---
Date of Consultation: 01/23/2023 Reason For Consultation: Atrial fibrillation with rapid ventricular response. History Of Present Illness: A 77-year-old male with past medical history of atrial fibrillation, hyp ertension, diabetes, hypothyroidism, COPD, and liver cirrhosis, presented to the emergency room with some abdominal discomfort, was found to be in atrial fibrillation with rapid ventricular response, he quincy I was consulted. He was started on amiodarone drip. Heart rate is controlled, still in AFib, bu t his liver enzymes were slightly increasing. Past Medical History: As outlined above in the HPI. Medications: Refer to reconciliation sheet for detailed list. Allergies: NO KNOWN DRUG ALLERGIES. Family History: No premature coronary artery disease or cancer. Social History: Does not smoke or drink. Does not use any drugs. Review of Systems: All systems reviewed and they were negative except what mentioned in HPI. Physical Examination: Vital Signs: Reviewed. Head and Neck: Pupils are equal, reactive to light. Intact eye movements. No JVD. No cervical lym phadenopathy. Neck is supple. Thyroid is not enlarged. Lungs: Clear to auscultation bilaterally. No rhonchi, wheezing, or crackles. No accessory muscle u se. Heart: Irregularly irregular. No extra sounds. Abdomen: Soft, nontender. Bowel sounds positive. No organomegaly. No masses or hernia. No rigidi ty or rebound. Extremities: No clubbing or cyanosis. No edema. Skin: No rash. Neurologic: Alert, awake, oriented x3. No acute focal deficits appreciated. Investigations: BUN 28, creatinine 1.58, and hemoglobin is 9.9. Troponin was 96. Assessment And Recommendations: 1.Atrial fibrillation with rapid ventricular response. ALT and AST increased. Discontinue IV amiod arone, put the patient on amiodarone 200 mg once daily and monitor liver function tests. If it georgina nued to increase, then we will discontinue amiodarone completely and given that the blood pressure is running on the low side, discontinue carvedilol, start the patient on metoprolol 50 mg twice a day. The patient was on carvedilol 25 mg twice a day. Monitor on telemetry. We may need to cut the dose down if the blood pressure continues to run low. Discontinue Xarelto due to the chronic kidney dise ase and start Eliquis 2.5 mg twice a day. 2.Systolic heart failure, low ejection fraction on echo. This patient will need ischemia workup. I will order 1 more troponin now and a stress test can be done as an outpatient. 3.Renal failure. This is probably chronic; however, we will monitor. The patient is appropriately on diuretics for congestive heart failure. SR/MODL Voice ID: [id number] Report ID: [id number]
[2023-01-23] MEDS: GUAIFENESIN/DM 5 ML UCUP PO PRN ×2 (18:50→23:02)
[2023-01-23] MEDS: APIXABAN 2.5 MG TABLET PO SCH (20:53)
[2023-01-23] MEDS: ENSURE HIGH PROTEIN 237 ML CAN PO SCH (20:54)
[2023-01-24] MEDS: NA CHLORIDE 0.9% 1,000 ML IV SCH ×2 (02:29→11:40)
[2023-01-24] MEDS: LEVOTHYROXINE SOD 0.112 MG TAB PO SCH (06:37)
[2023-01-24 06:41] LABS: Absolute Lymphocytes (CBC) 0.5 K/uL (0.7-4.9); Hematocrit 28.9 % (39.6-49.0); Lymphocytes % 7.9 % (15.3-44.8); MCV 95.4 fL (80-100); MPV 7.2 fL (7.6-11.3); RBC Red Blood Cell Count 3.03 M/uL (4.33-5.43)
--- NOTE | 2023-01-24 06:50 | ECHO ---
HEIGHT: 5 ft 6 in WEIGHT: 207 lb 0 oz DATE OF STUDY: 01/23/[address]: Antoni Doss MD 2-DIMENSIONAL: YES M.MODE: YES DOPPLER: YES COLOR FLOW: YES TDS: PORTABLE: YES DEFINITY: BUBBLE STUDY: DIAGNOSIS: SYSTOLIC MURMUR CARDIAC HISTORY: CATHERIZATION: NO SURGERY: NO PROSTHETIC VALVE: NO PACEMAKER: NO MEASUREMENTS (cm) DIASTOLIC (NORMALS) SYSTOLIC (NORMALS) IVSd 1.1 (0.6-1.2) LA Diam 5.4 (1.9-4.0) LVEF 46% LVIDd 6.3 (3.5-5.7) LVIDs 4.9 (2.0-3.5) %FS 23% LVPWd 1.1 (0.6-1.2) Ao Diam 3.1 (2.0-3.7) 2 DIMENSIONAL ASSESSMENT: RIGHT ATRIUM: ENLARGED LEFT ATRIUM: SEVERELY ENLARGED RIGHT VENTRICLE: NORMAL LEFT VENTRICLE: DECREASED EJECTION FRACTION TRICUSPID VALVE: MODERATE TRICUSPID REGURGITATION MITRAL VALVE: MODERATE MITRAL REGURGITATION PULMONIC VALVE: MILD PULMONIC INSUFFICIENCY AORTIC VALVE: NORMAL PERICARDIAL EFFUSION: NONE AORTIC ROOT: NORMAL LEFT VENTRICULAR WALL MOTION: MILD GLOBAL HYPOKINESIS DOPPLER/COLOR FLOW: SEE BELOW COMMENTS: 1. MILDLY DEPRESSED LEFT VENTRICULAR EJECTION FRACTION 40-45% 2. MILD GLOBAL HYPOKINESIS 3. BI-ATRIAL ENLARGEMENT 4. MODERATE MITRAL REGURGITATION 5. MODERATE TRICUSPID REGURGITATION TECHNOLOGIST: AYDEN SPAULDING
[2023-01-24 07:03] LABS: Albumin 2.9 g/dL (3.4-5.0); Bilirubin Total 0.9 mg/dL (0.2-1.0); Magnesium 1.9 mg/dL (1.6-2.4); Potassium 4.5 mEq/L (3.5-5.1); Protein, Total 5.9 g/dL (6.4-8.2)
[2023-01-24 07:04] LABS: Albumin 2.9 g/dL (3.4-5.0); Bilirubin Direct 0.6 mg/dL (0-0.2); Bilirubin Indirect, Calculated 0.3 mg/dL (0.2-0.8); Bilirubin Total 0.9 mg/dL (0.2-1.0); Protein, Total 5.9 g/dL (6.4-8.2)
[2023-01-24] MEDS: INSULIN -REGULAR HUMAN 50 UNIT/0.5 ML ML SQ SCH ×4 (07:30→21:00)
[2023-01-24] MEDS: HOME MED 1 EA UNK (Empagliflozin [Jardiance] 25 MG Tablet) PO SCH (08:29)
[2023-01-24] MEDS: UMECLIDINIUM BROMIDE 62.5 MCG IH SCH (08:29)
[2023-01-24] MEDS: METOPROLOL TAR 50 MG TAB PO SCH ×2 (08:31→21:42)
[2023-01-24] MEDS: PANTOPRAZOLE 40MG TABLET PO SCH (08:31)
[2023-01-24] MEDS: APIXABAN 2.5 MG TABLET PO SCH (08:32)
[2023-01-24] MEDS: ENSURE HIGH PROTEIN 237 ML CAN PO SCH ×2 (09:00→21:00)
[2023-01-24] MEDS: AMIODARONE HCL 200 MG TAB PO SCH (09:00)
[2023-01-24] MEDS: HYDROMORPHONE HCL 0.5 MG/0.5 ML INJ IV PRN (11:08)
--- NOTE | 2023-01-24 11:17 | P.PN ---
Subjective Date of Service: 01/24/23 Primary Care Provider: True Marie Chief Complaint: atrial fib Subjective: Improving (off amiodarone risk) Review of Systems 10-point ROS is otherwise unremarkable Physical Examination - Vital Signs Temperature: 96.9 F Blood Pressure: 116/71 Pulse: 74 Respirations: 22 Pulse Ox (%): 97 - Physical Exam General: Alert, In no apparent distress HEENT: Atraumatic, PERRLA, EOMI Neck: Supple, JVD not distended Respiratory: Clear to auscultation bilaterally, Normal air movement Cardiovascular: Regular rate/rhythm, Normal S1 S2 Gastrointestinal: Normal bowel sounds, No tenderness Musculoskeletal: No tenderness Integumentary: No rashes Neurological: Normal speech, Normal tone, Normal affect Lymphatics: No axilla or inguinal lymphadenopathy Assessment And Plan - Current Problems (Diagnosis) (1) Atrial fibrillation with RVR Current Visit: Yes Status: Chronic Plan: on coreg. Will start him on amiodaron. Will check a echo. He did have a severe murumur. Will consider anticoagulation. His chadvasc score is 3. Will wait till after he is seen by Dr. Jones. In case any procedures are planned. 01/[address] Silverman has switched him to metoprolol (2) Diabetes Current Visit: Yes Status: Acute Plan: restrart his home medication. Add insulin sliding scale 01/23 a1c of 9.0 Will hold metformin for 48 hours as he had contrast. Will have his daughters bring his home meds Qualifiers: Diabetes mellitus type: type 2 Diabetes mellitus penitentiary insulin use: without penitentiary use Diabetes mellitus complication status: without complication Qualified Code(s): E11.9 - Type 2 diabetes mellitus without complications (3) Acute renal failure Current Visit: Yes Status: Acute Plan: May be due to the contrast. Will restart the fluids on the patient . Qualifiers: Acute renal failure type: unspecified Qualified Code(s): N17.9 - Acute kidney failure, unspecified (4) Alcoholic cirrhosis of liver Current Visit: Yes Status: Acute Plan: will keep him NPO for now. His belly is tender but distended. Tympanic. So not likely to be fluid. We can decompress with an OG tube. Will check a flat plate xray in the am. Qualifiers: Ascites presence: without ascites Qualified Code(s): K70.30 - Alcoholic cirrhosis of liver without ascites (5) Hypothyroidism Current Visit: Yes Status: Acute Plan: check a tsh. restart his home levothyroxine Qualifiers: Hypothyroidism type: unspecified Qualified Code(s): E03.9 - Hypothyroidism, unspecified (6) Laryngeal cancer Current Visit: Yes Status: Acute Plan: s/p chemoradiation therapy. Will need to continue his treatment as an outpatient with Dr. Weldon (7) Mitral regurgitation Current Visit: Yes Status: Acute Plan: will discuss the patient with Dr. Silverman. Weather he needs to be transfererd for correction or outpatient work up Qualifiers: Cardiac valve disease etiology: nonrheumatic Qualified Code(s): I34.0 - Nonrheumatic mitral (valve) insufficiency Discharge Plan: Home Plan to discharge in: 24 Hours - Code Status/Comfort Care Code Status Assessed: No Physician Review: Patient Assessed, Agree with Above Assessment and Plan Critical Care: Yes Time Spent Managing PTS Care (In Minutes): 20
[2023-01-24] MEDS: SOTALOL HCL 80 MG TAB PO SCH (17:22)
--- NOTE | 2023-01-24 19:34 | PN ---
Date of Progress Note: 01/24/2023 Subjective: Seen by bedside. Continues to be in AFib, rate is controlled, but could not tolerate am iodarone. He had slight increase in liver enzymes that kept going up. Review of Systems: No chest pain. Has mild dyspnea on exertion. No nausea, vomiting, diarrhea. All other systems revi ewed and they were negative. Physical Examination: Vital Signs: Reviewed. Head and Neck: Pupils are equal, reactive to light. Intact eye movements. No JVD. No cervical lym phadenopathy. Neck is supple. Thyroid is not enlarged. Lungs: Clear to auscultation bilaterally. No rhonchi, wheezing, or crackles. No accessory muscle u se. Heart: Irregularly irregular with a holosystolic murmur in the mitral area. Abdomen: Soft, nontender. Bowel sounds positive. No organomegaly. No masses or hernia. No rigidi ty or rebound. Extremities: No clubbing or cyanosis. Intact pulses. Skin: No rash. Neurologic: Alert, awake. No acute focal deficits appreciated. Investigations: His ALT was 199, AST 299. Assessment And Recommendations: 1.Atrial fibrillation with rapid ventricular response, now is controlled. Discontinue amiodarone du e to elevated liver enzymes. Start sotalol 40 mg twice a day and continue metoprolol for now and con tinue Eliquis 5 mg twice a day. Plan for RIP-guided cardioversion tomorrow morning. 2.Systolic heart failure, low ejection fraction, likely due to atrial fibrillation. This should imp rove after the cardioversion. We will reassess with echo if we successfully can get him out of atrial fibrillation. SR/MODL Voice ID: [id number] Report ID: [id number]
[2023-01-24] MEDS: APIXABAN 5 MG TABLET PO SCH (21:41)
[2023-01-25] MEDS: NA CHLORIDE 0.9% 1,000 ML IV SCH (04:19)
[2023-01-25] MEDS: SOTALOL HCL 80 MG TAB PO SCH ×2 (06:03→17:38)
[2023-01-25] MEDS: LEVOTHYROXINE SOD 0.112 MG TAB PO SCH (06:04)
[2023-01-25] MEDS: HYDROMORPHONE HCL 0.5 MG/0.5 ML INJ IV PRN ×3 (06:22→20:11)
[2023-01-25 06:42] LABS: Absolute Lymphocytes (CBC) 0.4 K/uL (0.7-4.9); Hematocrit 30.9 % (39.6-49.0); Lymphocytes % 6.8 % (15.3-44.8); MCV 96.2 fL (80-100); MPV 7.4 fL (7.6-11.3); RBC Red Blood Cell Count 3.21 M/uL (4.33-5.43)
[2023-01-25] MEDS ORDERED: FLUMAZENIL 0.1 MG/ML (5 mL VIAL) IV ONE (06:58)
[2023-01-25] MEDS ORDERED: METOPROLOL TARTRATE 5 MG/5 ML INJ IV ONE (06:58)
[2023-01-25] MEDS ORDERED: MIDAZOLAM HCL 5 ML ONE (06:58)
[2023-01-25] MEDS ORDERED: ATROPINE SULF 1 MG/10 ML SYR IV ONE (06:59)
[2023-01-25] MEDS ORDERED: LIDOCAINE VISCOUS 2% SOLN 15 ML UDC ONE (06:59)
[2023-01-25] MEDS ORDERED: PHENOL 1.4% ORAL SPRAY 180ML ONE (06:59)
[2023-01-25 07:06] LABS: Albumin 2.9 g/dL (3.4-5.0); Bilirubin Total 1.1 mg/dL (0.2-1.0); Potassium 4.1 mEq/L (3.5-5.1); Protein, Total 6.1 g/dL (6.4-8.2)
[2023-01-25 07:17] LABS: Anisocytosis 1+; Blood Morphology Comment NOTED (NOT SEEN); Platelet Estimate DECR; Polychromasia 1+; White Blood Cell Scan OK (OK)
[2023-01-25] MEDS: INSULIN -REGULAR HUMAN 50 UNIT/0.5 ML ML SQ SCH ×4 (07:30→20:21)
[2023-01-25] MEDS: PANTOPRAZOLE 40MG TABLET PO SCH (07:47)
[2023-01-25] MEDS: METOPROLOL TAR 50 MG TAB PO SCH ×2 (07:47→20:11)
[2023-01-25] MEDS: APIXABAN 5 MG TABLET PO SCH ×2 (07:47→20:11)
[2023-01-25] MEDS: METFORMIN HCL 500 MG TAB PO SCH ×2 (08:00→17:00)
[2023-01-25] MEDS ORDERED: FUROSEMIDE 40 MG/4 ML VIAL IV ONE (08:56)
[2023-01-25] MEDS: ENSURE HIGH PROTEIN 237 ML CAN PO SCH ×2 (09:00→20:20)
[2023-01-25] MEDS: UMECLIDINIUM BROMIDE 62.5 MCG IH SCH (09:00)
[2023-01-25] MEDS: HOME MED 1 EA UNK (Empagliflozin [Jardiance] 25 MG Tablet) PO SCH (09:00)
[2023-01-25] MEDS ORDERED: FUROSEMIDE 40 MG/4 ML VIAL ONE (09:14)
--- NOTE | 2023-01-25 09:52 | RAD REPORT ---
EXAM DESCRIPTION: RAD - Abdomen 1 View (KUB) - 01/25/2023 9:20 am CLINICAL HISTORY: sbd pain. COMPARISON: No comparisons TECHNIQUE: Single AP view of the abdomen. FINDINGS: Relative paucity of gas throughout the abdomen, a nonspecific finding. No significant tanya l distention or air-fluid levels. No evidence of free air, or pneumatosis. No suspicious calcificatio ns. No significant bony abnormality. IMPRESSION: Relative paucity of gas throughout the abdomen, a nonspecific finding. No obstructive sid wel gas pattern.
--- NOTE | 2023-01-25 12:18 | P.PN ---
Subjective Date of Service: 01/25/23 Primary Care Provider: True Marie Chief Complaint: atrial fib Subjective: New changes (planned cardioversion this morning stopped due to tachycardia.) Review of Systems 10-point ROS is otherwise unremarkable Gastrointestinal: Abdominal Pain Physical Examination - Vital Signs Temperature: 97 F Blood Pressure: 130/85 Pulse: 86 Respirations: 17 Pulse Ox (%): 100 - Physical Exam General: Alert, In no apparent distress HEENT: Atraumatic, PERRLA, EOMI Neck: Supple, JVD not distended Respiratory: Clear to auscultation bilaterally, Normal air movement Cardiovascular: Regular rate/rhythm, Normal S1 S2 Gastrointestinal: Normal bowel sounds, No tenderness Musculoskeletal: No tenderness Integumentary: No rashes Neurological: Normal speech, Normal tone, Normal affect Lymphatics: No axilla or inguinal lymphadenopathy Assessment And Plan - Current Problems (Diagnosis) (1) Heart failure, diastolic, acute Current Visit: Yes Status: Acute Plan: being diurseised by Dr. Silverman. He may cardiovert him in the afternoon (2) Atrial fibrillation with RVR Current Visit: Yes Status: Chronic Plan: on coreg. Will start him on amiodaron. Will check a echo. He did have a severe murumur. Will consider anticoagulation. His chadvasc score is 3. Will wait till after he is seen by Dr. Jones. In case any procedures are planned. 01/[address] Silverman has switched him to metoprolol (3) Diabetes Current Visit: Yes Status: Acute Plan: restrart his home medication. Add insulin sliding scale 01/23 a1c of 9.0 Will hold metformin for 48 hours as he had contrast. Will have his daughters bring his home meds Qualifiers: Diabetes mellitus type: type 2 Diabetes mellitus residential insulin use: without lobsterman use Diabetes mellitus complication status: without complication Qualified Code(s): E11.9 - Type 2 diabetes mellitus without complications (4) Acute renal failure Current Visit: Yes Status: Acute Plan: May be due to the contrast. Will restart the fluids on the patient . Qualifiers: Acute renal failure type: unspecified Qualified Code(s): N17.9 - Acute kidney failure, unspecified (5) Alcoholic cirrhosis of liver Current Visit: Yes Status: Acute Plan: will keep him NPO for now. His belly is tender but distended. Tympanic. So not likely to be fluid. We can decompress with an OG tube. Will check a flat plate xray in the am. Qualifiers: Ascites presence: without ascites Qualified Code(s): K70.30 - Alcoholic cirrhosis of liver without ascites (6) Hypothyroidism Current Visit: Yes Status: Acute Plan: check a tsh. restart his home levothyroxine Qualifiers: Hypothyroidism type: unspecified Qualified Code(s): E03.9 - Hypothyroidism, unspecified (7) Laryngeal cancer Current Visit: Yes Status: Acute Plan: s/p chemoradiation therapy. Will need to continue his treatment as an outpatient with Dr. Weldon (8) Mitral regurgitation Current Visit: Yes Status: Acute Plan: will discuss the patient with Dr. Silverman. Weather he needs to be transfererd for correction or outpatient work up Qualifiers: Cardiac valve disease etiology: nonrheumatic Qualified Code(s): I34.0 - Nonrheumatic mitral (valve) insufficiency Discharge Plan: Home Plan to discharge in: Greater than 2 days - Code Status/Comfort Care Code Status Assessed: No Physician Review: Patient Assessed, Agree with Above Assessment and Plan Critical Care: Yes Time Spent Managing PTS Care (In Minutes): 30
[2023-01-25] MEDS: FUROSEMIDE 40 MG/4 ML VIAL IV SCH (16:34)
--- NOTE | 2023-01-25 19:01 | PN ---
Date of Progress Note: 01/25/2023 Subjective: Seen by bedside. There was a plan to do RIP-guided cardioversion on him today; however, he was in acute respiratory distress and acute congestive heart failure exacerbation. Procedure was canceled. I gave him 60 mg of Lasix and slowly started to improve. Review of Systems: Positive shortness of breath and orthopnea. No chest pain. No nausea, vomiting, diarrhea. No abdom inal pain. All other systems reviewed and they were negative. Physical Examination: Vital signs: Reviewed. Head and Neck: Pupils are equal, reactive to light. Intact eye movements. Positive JVD. No cervic al lymphadenopathy. Neck is supple. Thyroid is not enlarged. Lungs: Crackles in both lungs. He was in respiratory distress with accessory muscle use. Heart: Irregularly irregular, tachycardic. Abdomen: Slightly distended. Mild tenderness. Bowel sounds positive. Extremities: No clubbing, cyanosis. Positive edema. Neurologic: Alert, awake, oriented x3. No acute focal deficits appreciated. Investigations: BUN 32, creatinine 0.96, and hemoglobin is 10.2. Assessment And Recommendations: 1.Acute hypoxic respiratory failure due to acute congestive heart failure. I gave him 60 mg of Lasi x and put him on Lasix 40 mg IV b.i.d. 2.Atrial fibrillation. Continue sotalol and continue metoprolol and Eliquis. We will plan for the cardioversion once his fluid status is stable and once he is able to tolerate the procedure. 3.Congestive heart failure exacerbation. The patient is on diuretics. I discussed the case with Dr Teresa Doss. /MODL Voice ID: [id number] Report ID: [id number]
[2023-01-26] MEDS: GUAIFENESIN/DM 5 ML UCUP PO PRN (06:00)
[2023-01-26] MEDS: SOTALOL HCL 80 MG TAB PO SCH ×3 (06:00→17:49)
[2023-01-26] MEDS: LEVOTHYROXINE SOD 0.112 MG TAB PO SCH (06:07)
[2023-01-26] MEDS: INSULIN -REGULAR HUMAN 50 UNIT/0.5 ML ML SQ SCH ×4 (07:30→20:41)
[2023-01-26] MEDS: METFORMIN HCL 500 MG TAB PO SCH ×2 (08:16→17:49)
[2023-01-26] MEDS: HYDROMORPHONE HCL 0.5 MG/0.5 ML INJ IV PRN ×2 (08:16→17:49)
[2023-01-26] MEDS: APIXABAN 5 MG TABLET PO SCH ×2 (08:17→20:35)
[2023-01-26] MEDS: FUROSEMIDE 40 MG/4 ML VIAL IV SCH ×2 (08:17→17:49)
[2023-01-26] MEDS: PANTOPRAZOLE 40MG TABLET PO SCH (08:17)
[2023-01-26] MEDS: ENSURE HIGH PROTEIN 237 ML CAN PO SCH ×2 (08:18→20:35)
[2023-01-26] MEDS: HOME MED 1 EA UNK (Empagliflozin [Jardiance] 25 MG Tablet) PO SCH (08:18)
[2023-01-26] MEDS: UMECLIDINIUM BROMIDE 62.5 MCG IH SCH (08:19)
[2023-01-26] MEDS: METOPROLOL TAR 50 MG TAB PO SCH (09:00)
--- NOTE | 2023-01-26 12:37 | P.PN ---
Subjective Date of Service: 01/26/23 Primary Care Provider: True Marie Chief Complaint: atrial fib Subjective: No new changes Review of Systems 10-point ROS is otherwise unremarkable Respiratory: Shortness of Breath (on exertion) Physical Examination - Vital Signs Temperature: 97.0 F Blood Pressure: 94/53 Pulse: 80 Respirations: 17 Pulse Ox (%): 95 - Physical Exam General: Alert, In no apparent distress HEENT: Atraumatic, PERRLA, EOMI Neck: Supple, JVD not distended Respiratory: Clear to auscultation bilaterally, Normal air movement Cardiovascular: Regular rate/rhythm, Normal S1 S2 Gastrointestinal: Normal bowel sounds, No tenderness Musculoskeletal: No tenderness Integumentary: No rashes Neurological: Normal speech, Normal tone, Normal affect Lymphatics: No axilla or inguinal lymphadenopathy Assessment And Plan - Current Problems (Diagnosis) (1) Heart failure, diastolic, acute Current Visit: Yes Status: Acute Plan: being diurseised by Dr. Silverman. He may cardiovert him in the afternoon (2) Atrial fibrillation with RVR Current Visit: Yes Status: Chronic Plan: on coreg. Will start him on amiodaron. Will check a echo. He did have a severe murumur. Will consider anticoagulation. His chadvasc score is 3. Will wait till after he is seen by Dr. Jones. In case any procedures are planned. 01/26 will decrease his metoprolol dosage as he his having some bradycardia. Plans for cardioversion on Saturday. will keep in the ICU till then (3) Diabetes Current Visit: Yes Status: Acute Plan: restrart his home medication. Add insulin sliding scale 01/23 a1c of 9.0 Will hold metformin for 48 hours as he had contrast. Will have his daughters bring his home meds Qualifiers: Diabetes mellitus type: type 2 Diabetes mellitus group home insulin use: without terminal block assembler use Diabetes mellitus complication status: without complication Qualified Code(s): E11.9 - Type 2 diabetes mellitus without complications (4) Acute renal failure Current Visit: Yes Status: Acute Plan: May be due to the contrast. Will restart the fluids on the patient . Qualifiers: Acute renal failure type: unspecified Qualified Code(s): N17.9 - Acute kidney failure, unspecified (5) Alcoholic cirrhosis of liver Current Visit: Yes Status: Acute Plan: will keep him NPO for now. His belly is tender but distended. Tympanic. So not likely to be fluid. We can decompress with an OG tube. Will check a flat plate xray in the am. Qualifiers: Ascites presence: without ascites Qualified Code(s): K70.30 - Alcoholic cirrhosis of liver without ascites (6) Hypothyroidism Current Visit: Yes Status: Acute Plan: check a tsh. restart his home levothyroxine Qualifiers: Hypothyroidism type: unspecified Qualified Code(s): E03.9 - Hypothyroidism, unspecified (7) Laryngeal cancer Current Visit: Yes Status: Acute Plan: s/p chemoradiation therapy. Will need to continue his treatment as an outpatient with Dr. Weldon (8) Mitral regurgitation Current Visit: Yes Status: Acute Plan: will discuss the patient with Dr. Silverman. Weather he needs to be transfererd for correction or outpatient work up Qualifiers: Cardiac valve disease etiology: nonrheumatic Qualified Code(s): I34.0 - Nonrheumatic mitral (valve) insufficiency Discharge Plan: Home Plan to discharge in: 24 Hours - Code Status/Comfort Care Code Status Assessed: No Physician Review: Patient Assessed, Agree with Above Assessment and Plan Critical Care: Yes Time Spent Managing PTS Care (In Minutes): 20
[2023-01-26] MEDS: METOPROLOL TAR 25 MG TAB PO SCH (20:35)
[2023-01-27] MEDS: HYDROMORPHONE HCL 0.5 MG/0.5 ML INJ IV PRN ×4 (00:28→20:14)
[2023-01-27] MEDS: SOTALOL HCL 80 MG TAB PO SCH ×2 (05:38→17:37)
[2023-01-27] MEDS: LEVOTHYROXINE SOD 0.112 MG TAB PO SCH (05:38)
[2023-01-27 07:13] LABS: Absolute Lymphocytes (CBC) 0.5 K/uL (0.7-4.9); Hematocrit 30.9 % (39.6-49.0); Lymphocytes % 10.1 % (15.3-44.8); MCV 94.8 fL (80-100); MPV 7.2 fL (7.6-11.3); RBC Red Blood Cell Count 3.26 M/uL (4.33-5.43)
[2023-01-27 07:15] LABS: Albumin 2.9 g/dL (3.4-5.0); Bilirubin Total 1.1 mg/dL (0.2-1.0); Potassium 3.6 mEq/L (3.5-5.1); Protein, Total 6.1 g/dL (6.4-8.2)
[2023-01-27] MEDS: INSULIN -REGULAR HUMAN 50 UNIT/0.5 ML ML SQ SCH ×4 (07:30→20:26)
[2023-01-27] MEDS: FUROSEMIDE 40 MG/4 ML VIAL IV SCH (08:19)
[2023-01-27] MEDS: METOPROLOL TAR 25 MG TAB PO SCH ×2 (08:19→20:14)
[2023-01-27] MEDS: METFORMIN HCL 500 MG TAB PO SCH ×2 (08:19→17:07)
[2023-01-27] MEDS: GUAIFENESIN/DM 5 ML UCUP PO PRN ×2 (08:19→21:53)
[2023-01-27] MEDS: HOME MED 1 EA UNK (Empagliflozin [Jardiance] 25 MG Tablet) PO SCH (08:20)
[2023-01-27] MEDS: PANTOPRAZOLE 40MG TABLET PO SCH (08:20)
[2023-01-27] MEDS: APIXABAN 5 MG TABLET PO SCH ×2 (08:20→20:15)
[2023-01-27] MEDS: UMECLIDINIUM BROMIDE 62.5 MCG IH SCH (08:21)
[2023-01-27 10:26] LABS: Blood Morphology Comment NOT SEEN (NOT SEEN); Platelet Estimate ADEQ
[2023-01-27] MEDS: ENSURE HIGH PROTEIN 237 ML CAN PO SCH ×2 (11:20→20:18)
[2023-01-27] MEDS ORDERED: SOTALOL HCL 80 MG TAB PO ONE (12:18)
[2023-01-27] MEDS ORDERED: METOPROLOL TARTRATE 5 MG/5 ML INJ IV STA (12:18)
--- NOTE | 2023-01-27 12:38 | PN ---
Date of Progress Note: 01/27/2023 Subjective: Seen by bedside. Clinically much better. Review of Systems: No chest pain, shortness of breath, orthopnea, cough. No nausea, vomiting, diarrhea. He wants to go home. All other systems reviewed and they were negative. Physical Examination: Vital Signs: Temperature is 98.4, pulse 87, breathing at 17, blood pressure 116/73, saturating 96% o n room air. General: Pleasant elderly male, in no apparent distress. Head and Neck: Pupils are equal, reactive to light. Intact eye movements. No JVD. No cervical lym phadenopathy. Neck is supple. Thyroid is not enlarged. Lungs: Clear to auscultation bilaterally. No rhonchi, wheezing, or crackles. No accessory muscle u se. Heart: Irregularly irregular. No extra sounds. Abdomen: Soft, nontender. Bowel sounds positive. No organomegaly. No masses or hernia. No rigidi ty or rebound. Extremities: No edema, clubbing, or cyanosis. Intact pulses. Skin: No rash. Neurologic: Alert, awake, oriented x3. No acute focal deficits appreciated. Investigations: His creatinine today is 0.84, BUN 22, hemoglobin 10.3. Assessment And Recommendations: 1.Acute on chronic diastolic heart failure exacerbation. He was in acute respiratory distress. Res ponded well to diuresis. Appears to be euvolemic. Switch Lasix from IV to oral. 2.Atrial fibrillation with rapid ventricular response. Increase sotalol to 80 mg twice a day and cu t down on metoprolol 25 mg twice a day and plan to discontinue it by tomorrow and continue Eliquis. Plan for a possible outpatient cardioversion. If he gets controlled on above regimen, he can be rele ased and follow up as an outpatient. 3.Acute renal failure. It is due to fluid retention. Creatinine responded very well to diuresis. SR/MODL Voice ID: [id number] Report ID: [id number]
--- NOTE | 2023-01-27 13:42 | P.PN ---
Subjective Date of Service: 01/27/23 Primary Care Provider: True Marie Chief Complaint: atrial fib Subjective: No new changes (tachycardia when he got out of bed) Review of Systems 10-point ROS is otherwise unremarkable Cardiovascular: Palpitations (on walking to the toliet ) Physical Examination - Vital Signs Temperature: 97.9 F Blood Pressure: 145/84 Pulse: 117 Respirations: 21 Pulse Ox (%): 96 - Physical Exam General: Alert, In no apparent distress HEENT: Atraumatic, PERRLA, EOMI Neck: Supple, JVD not distended Respiratory: Clear to auscultation bilaterally, Normal air movement Cardiovascular: Regular rate/rhythm, Normal S1 S2 Gastrointestinal: Normal bowel sounds, No tenderness Musculoskeletal: No tenderness Integumentary: No rashes Neurological: Normal speech, Normal tone, Normal affect Lymphatics: No axilla or inguinal lymphadenopathy Assessment And Plan - Current Problems (Diagnosis) (1) Heart failure, diastolic, acute Current Visit: Yes Status: Acute Plan: being diurseised by Dr. Silverman. He may cardiovert him in the afternoon (2) Atrial fibrillation with RVR Current Visit: Yes Status: Chronic Plan: on coreg. Will start him on amiodaron. Will check a echo. He did have a severe murumur. Will consider anticoagulation. His chadvasc score is 3. Will wait till after he is seen by Dr. Jones. In case any procedures are planned. 01/27 Dr. Silverman has increased the sotolol to 80mg Possible cardioversion on Saturday (3) Diabetes Current Visit: Yes Status: Acute Plan: restrart his home medication. Add insulin sliding scale 01/23 a1c of 9.0 Will hold metformin for 48 hours as he had contrast. Will have his daughters bring his home meds Qualifiers: Diabetes mellitus type: type 2 Diabetes mellitus chcf insulin use: without chcf use Diabetes mellitus complication status: without complication Qualified Code(s): E11.9 - Type 2 diabetes mellitus without complications (4) Acute renal failure Current Visit: Yes Status: Acute Plan: May be due to the contrast. Will restart the fluids on the patient . Qualifiers: Acute renal failure type: unspecified Qualified Code(s): N17.9 - Acute kidney failure, unspecified (5) Alcoholic cirrhosis of liver Current Visit: Yes Status: Acute Plan: will keep him NPO for now. His belly is tender but distended. Tympanic. So not likely to be fluid. We can decompress with an OG tube. Will check a flat plate xray in the am. Qualifiers: Ascites presence: without ascites Qualified Code(s): K70.30 - Alcoholic cirrhosis of liver without ascites (6) Hypothyroidism Current Visit: Yes Status: Acute Plan: check a tsh. restart his home levothyroxine Qualifiers: Hypothyroidism type: unspecified Qualified Code(s): E03.9 - Hypothyroidism, unspecified (7) Laryngeal cancer Current Visit: Yes Status: Acute Plan: s/p chemoradiation therapy. Will need to continue his treatment as an outpatient with Dr. Weldon (8) Mitral regurgitation Current Visit: Yes Status: Acute Plan: will discuss the patient with Dr. Silverman. Weather he needs to be transfererd for correction or outpatient work up Qualifiers: Cardiac valve disease etiology: nonrheumatic Qualified Code(s): I34.0 - Nonrheumatic mitral (valve) insufficiency Discharge Plan: Home Plan to discharge in: 24 Hours - Code Status/Comfort Care Code Status Assessed: No Physician Review: Patient Assessed, Agree with Above Assessment and Plan Critical Care: Yes Time Spent Managing PTS Care (In Minutes): 20
[2023-01-27] MEDS: FUROSEMIDE 40 MG TABLET PO SCH (17:07)
[2023-01-27] MEDS ORDERED: ALPRAZOLAM 0.5 MG TABLET PO ONE (22:10)
[2023-01-27] MEDS ORDERED: ALPRAZOLAM 0.5 MG TABLET ONE (22:23)
[2023-01-28] MEDS: SOTALOL HCL 80 MG TAB PO SCH ×2 (05:39→18:14)
[2023-01-28] MEDS: LEVOTHYROXINE SOD 0.112 MG TAB PO SCH (05:39)
[2023-01-28] MEDS: HYDROMORPHONE HCL 0.5 MG/0.5 ML INJ IV PRN ×3 (05:39→22:24)
[2023-01-28 06:13] LABS: Hematocrit 32.8 % (39.6-49.0); MCV 95.7 fL (80-100); RBC Red Blood Cell Count 3.42 M/uL (4.33-5.43)
[2023-01-28 06:14] LABS: Absolute Lymphocytes (CBC) 0.6 K/uL (0.7-4.9); Lymphocytes % 11.5 % (15.3-44.8); MPV 7.2 fL (7.6-11.3)
[2023-01-28 06:28] LABS: Bilirubin Total 1.2 mg/dL (0.2-1.0); Potassium 3.8 mEq/L (3.5-5.1); Protein, Total 6.2 g/dL (6.4-8.2)
[2023-01-28] MEDS: INSULIN -REGULAR HUMAN 50 UNIT/0.5 ML ML SQ SCH ×4 (07:30→20:13)
[2023-01-28 08:35] LABS: Platelet Estimate ADEQ
[2023-01-28 08:36] LABS: Anisocytosis 3+; Blood Morphology Comment NOTED (NOT SEEN); Burr Cells 1+; Hypochromasia 1+; Macrocytosis 1+; Ovalocytes 1+; Platelets, Giant 1+; Poikilocytosis 1+
[2023-01-28] MEDS: HOME MED 1 EA UNK (Empagliflozin [Jardiance] 25 MG Tablet) PO SCH (08:37)
[2023-01-28] MEDS: UMECLIDINIUM BROMIDE 62.5 MCG IH SCH (08:38)
[2023-01-28] MEDS: METFORMIN HCL 500 MG TAB PO SCH ×2 (09:02→16:58)
[2023-01-28] MEDS: PANTOPRAZOLE 40MG TABLET PO SCH (09:02)
[2023-01-28] MEDS: FUROSEMIDE 40 MG TABLET PO SCH ×2 (09:02→16:59)
[2023-01-28] MEDS: APIXABAN 5 MG TABLET PO SCH ×2 (09:02→20:13)
[2023-01-28] MEDS: ENSURE HIGH PROTEIN 237 ML CAN PO SCH ×2 (09:03→20:13)
[2023-01-28] MEDS: METOPROLOL TAR 25 MG TAB PO SCH ×2 (10:49→20:12)
--- NOTE | 2023-01-28 14:06 | P.PN ---
Subjective Date of Service: 01/28/23 Primary Care Provider: True Marie Chief Complaint: atrial fib Subjective: No new changes Review of Systems 10-point ROS is otherwise unremarkable Cardiovascular: Palpitations Gastrointestinal: Abdominal Pain Physical Examination - Vital Signs Temperature: 96.9 F Blood Pressure: 127/71 Pulse: 63 Respirations: 18 Pulse Ox (%): 97 - Physical Exam General: Alert, In no apparent distress HEENT: Atraumatic, PERRLA, EOMI Neck: Supple, JVD not distended Respiratory: Clear to auscultation bilaterally, Normal air movement Cardiovascular: Normal S1 S2, Irregular heart rate/rhythm, Systolic murmur Gastrointestinal: Normal bowel sounds, No tenderness Musculoskeletal: No tenderness Integumentary: No rashes Neurological: Normal speech, Normal tone, Normal affect Lymphatics: No axilla or inguinal lymphadenopathy Assessment And Plan - Current Problems (Diagnosis) (1) Heart failure, diastolic, acute Current Visit: Yes Status: Acute Plan: being diurseised by Dr. Silverman. He may cardiovert him in the afternoon (2) Atrial fibrillation with RVR Current Visit: Yes Status: Chronic Plan: on coreg. Will start him on amiodaron. Will check a echo. He did have a severe murumur. Will consider anticoagulation. His chadvasc score is 3. Will wait till after he is seen by Dr. Jones. In case any procedures are planned. 01/28 possible cardioversion tomorrow or the next day (3) Diabetes Current Visit: Yes Status: Acute Plan: restrart his home medication. Add insulin sliding scale 01/23 a1c of 9.0 Will hold metformin for 48 hours as he had contrast. Will have his daughters bring his home meds Qualifiers: Diabetes mellitus type: type 2 Diabetes mellitus fdc insulin use: without terminologist use Diabetes mellitus complication status: without complication Qualified Code(s): E11.9 - Type 2 diabetes mellitus without complications (4) Alcoholic cirrhosis of liver Current Visit: Yes Status: Acute Plan: will keep him NPO for now. His belly is tender but distended. Tympanic. So not likely to be fluid. We can decompress with an OG tube. Will check a flat plate xray in the am. Qualifiers: Ascites presence: without ascites Qualified Code(s): K70.30 - Alcoholic cirrhosis of liver without ascites (5) Hypothyroidism Current Visit: Yes Status: Acute Plan: check a tsh. restart his home levothyroxine Qualifiers: Hypothyroidism type: unspecified Qualified Code(s): E03.9 - Hypothyroidism, unspecified (6) Laryngeal cancer Current Visit: Yes Status: Acute Plan: s/p chemoradiation therapy. Will need to continue his treatment as an outpatient with Dr. Weldon (7) Mitral regurgitation Current Visit: Yes Status: Acute Plan: will discuss the patient with Dr. Silverman. Weather he needs to be transfererd for correction or outpatient work up Qualifiers: Cardiac valve disease etiology: nonrheumatic Qualified Code(s): I34.0 - Nonrheumatic mitral (valve) insufficiency Discharge Plan: Home Plan to discharge in: 24 Hours - Code Status/Comfort Care Code Status Assessed: No Physician Review: Patient Assessed, Agree with Above Assessment and Plan Critical Care: No Time Spent Managing PTS Care (In Minutes): 20
[2023-01-28] MEDS ORDERED: ACETAMINOPHEN 500 MG TAB PO PRN (14:08)
[2023-01-28] MEDS: CITALOPRAM 10 MG TABLET PO SCH (14:44)
[2023-01-29] MEDS: HYDROMORPHONE HCL 0.5 MG/0.5 ML INJ IV PRN ×3 (04:31→16:53)
[2023-01-29] MEDS: SOTALOL HCL 80 MG TAB PO SCH ×2 (06:11→16:49)
[2023-01-29] MEDS: LEVOTHYROXINE SOD 0.112 MG TAB PO SCH (06:11)
[2023-01-29 06:26] LABS: Absolute Lymphocytes (CBC) 0.7 K/uL (0.7-4.9); Hematocrit 32.6 % (39.6-49.0); Lymphocytes % 14.4 % (15.3-44.8); MCV 96.2 fL (80-100); RBC Red Blood Cell Count 3.39 M/uL (4.33-5.43)
[2023-01-29 06:43] LABS: Bilirubin Total 1.2 mg/dL (0.2-1.0); Magnesium 1.1 mg/dL (1.6-2.4); Potassium 3.8 mEq/L (3.5-5.1); Protein, Total 6.4 g/dL (6.4-8.2)
[2023-01-29] MEDS ORDERED: Magnesium Sulfate 2gm IVPB 2 G/50 ML BAG IV ONE (07:22)
[2023-01-29] MEDS: INSULIN -REGULAR HUMAN 50 UNIT/0.5 ML ML SQ SCH ×4 (07:23→20:25)
[2023-01-29] MEDS: FUROSEMIDE 40 MG TABLET PO SCH (08:55)
[2023-01-29] MEDS: METFORMIN HCL 500 MG TAB PO SCH ×2 (08:55→16:49)
[2023-01-29] MEDS: CITALOPRAM 10 MG TABLET PO SCH (08:55)
[2023-01-29] MEDS: METOPROLOL TAR 25 MG TAB PO SCH ×2 (08:55→20:24)
[2023-01-29] MEDS: APIXABAN 5 MG TABLET PO SCH ×2 (08:55→20:24)
[2023-01-29] MEDS: ENSURE HIGH PROTEIN 237 ML CAN PO SCH ×2 (08:56→20:24)
[2023-01-29] MEDS: UMECLIDINIUM BROMIDE 62.5 MCG IH SCH (08:56)
[2023-01-29] MEDS: HOME MED 1 EA UNK (Empagliflozin [Jardiance] 25 MG Tablet) PO SCH (08:56)
[2023-01-29] MEDS: PANTOPRAZOLE 40MG TABLET PO SCH (08:58)
--- NOTE | 2023-01-29 14:41 | P.PN ---
Subjective Date of Service: 01/29/23 Primary Care Provider: True Marie Chief Complaint: atrial fib Subjective: No new changes Review of Systems 10-point ROS is otherwise unremarkable Physical Examination - Vital Signs Temperature: 97.6 F Blood Pressure: 136/68 Pulse: 72 Respirations: 23 Pulse Ox (%): 98 - Physical Exam General: Alert, In no apparent distress HEENT: Atraumatic, PERRLA, EOMI Neck: Supple, JVD not distended Respiratory: Clear to auscultation bilaterally, Normal air movement Cardiovascular: Regular rate/rhythm, Normal S1 S2 Gastrointestinal: Normal bowel sounds, No tenderness Musculoskeletal: No tenderness Integumentary: No rashes Neurological: Normal speech, Normal tone, Normal affect Lymphatics: No axilla or inguinal lymphadenopathy Assessment And Plan - Current Problems (Diagnosis) (1) Heart failure, diastolic, acute Current Visit: Yes Status: Acute Plan: being diurseised by Dr. Silverman. He may cardiovert him in the afternoon (2) Atrial fibrillation with RVR Current Visit: Yes Status: Chronic Plan: on coreg. Will start him on amiodaron. Will check a echo. He did have a severe murumur. Will consider anticoagulation. His chadvasc score is 3. Will wait till after he is seen by Dr. Jones. In case any procedures are planned. 01/28 possible cardioversion tomorrow or the next day (3) Diabetes Current Visit: Yes Status: Acute Plan: restrart his home medication. Add insulin sliding scale 01/23 a1c of 9.0 Will hold metformin for 48 hours as he had contrast. Will have his daughters bring his home meds Qualifiers: Diabetes mellitus type: type 2 Diabetes mellitus assisted insulin use: without assisted use Diabetes mellitus complication status: without complication Qualified Code(s): E11.9 - Type 2 diabetes mellitus without complications (4) Alcoholic cirrhosis of liver Current Visit: Yes Status: Acute Plan: will keep him NPO for now. His belly is tender but distended. Tympanic. So not likely to be fluid. We can decompress with an OG tube. Will check a flat plate xray in the am. Qualifiers: Ascites presence: without ascites Qualified Code(s): K70.30 - Alcoholic cirrhosis of liver without ascites (5) Hypothyroidism Current Visit: Yes Status: Acute Plan: check a tsh. restart his home levothyroxine Qualifiers: Hypothyroidism type: unspecified Qualified Code(s): E03.9 - Hypothyroidism, unspecified (6) Laryngeal cancer Current Visit: Yes Status: Acute Plan: s/p chemoradiation therapy. Will need to continue his treatment as an outpatient with Dr. Weldon (7) Mitral regurgitation Current Visit: Yes Status: Acute Plan: will discuss the patient with Dr. Silverman. Weather he needs to be transfererd for correction or outpatient work up Qualifiers: Cardiac valve disease etiology: nonrheumatic Qualified Code(s): I34.0 - Nonrheumatic mitral (valve) insufficiency Discharge Plan: Home Plan to discharge in: 48 Hours Physician Review: Patient Assessed, Agree with Above Assessment and Plan Critical Care: Yes Time Spent Managing PTS Care (In Minutes): 20
--- NOTE | 2023-01-29 16:19 | PN ---
Subjective: Seen by bedside. He is doing clinically much better. Heart failure symptoms are under good control. Does not have any chest pain, orthopnea. Still in atrial fibrillation while on sotalo l. Review of Systems: No chest pain, shortness of breath, orthopnea, cough. No nausea, vomiting, diarrhea. All other syst ems reviewed and there were negative. Physical Examination: Vital Signs: Reviewed. Head and Neck: Pupils are equal, reactive to light. Intact eye movements. No JVD. No cervical lym phadenopathy. Neck: Supple. Thyroid is not enlarged. Lungs: Clear to auscultation bilaterally. No rhonchi, wheezing, or crackles. No accessory muscle u se. Heart: Irregularly irregular. No extra sounds. Abdomen: Soft, nontender. Bowel sounds positive. No masses or hernia. No rigidity or rebound. Extremities: No clubbing, cyanosis. Intact pulses. Skin: No rash. Neurologic: Alert, awake, oriented x3. No acute focal deficits appreciated. Lymph Nodes: No cervical or axillary lymphadenopathy. Investigations: Labs were reviewed. Assessment And Plan: 1.Acute on chronic diastolic heart failure respiratory failure. He appears to be euvolem ic now, but his BUN, creatinine are going up slowly. Change Lasix to 40 mg once a day. 2.Atrial fibrillation. Continues to be in atrial fibrillation. We will plan on doing RIP cardiover titus tomorrow. Continue sotalol. 3.Acute respiratory failure due to heart failure. This is resolved. Continue to monitor. SR/MODL Voice ID: [id number] Report ID: [id number]
[2023-01-29] MEDS ORDERED: ALPRAZOLAM 0.5 MG TABLET PO ONE (20:12)
[2023-01-29] MEDS ORDERED: MAGNESIUM SULFATE 1 gm IVPB 1 GM/100 ML BAG IV ONE (21:00)
[2023-01-30 04:58] LABS: Absolute Lymphocytes (CBC) 0.6 K/uL (0.7-4.9); Hematocrit 31.9 % (39.6-49.0); MCV 96.6 fL (80-100); MPV 7.4 fL (7.6-11.3)
[2023-01-30 05:13] LABS: Magnesium 1.9 mg/dL (1.6-2.4); Potassium 3.7 mEq/L (3.5-5.1)
[2023-01-30] MEDS: SOTALOL HCL 80 MG TAB PO SCH ×2 (05:20→17:05)
[2023-01-30] MEDS: LEVOTHYROXINE SOD 0.112 MG TAB PO SCH (05:20)
[2023-01-30 05:57] VITALS: BMI 33.0
[2023-01-30] MEDS ORDERED: MIDAZOLAM HCL 5 ML ONE (07:21)
[2023-01-30] MEDS ORDERED: PHENOL 1.4% ORAL SPRAY 180ML ONE (07:22)
[2023-01-30] MEDS ORDERED: FLUMAZENIL 0.1 MG/ML (5 mL VIAL) IV ONE (07:22)
[2023-01-30] MEDS ORDERED: ATROPINE SULF 1 MG/10 ML SYR IV ONE (07:22)
[2023-01-30] MEDS ORDERED: LIDOCAINE VISCOUS 2% SOLN 15 ML UDC ONE (07:22)
[2023-01-30] MEDS: INSULIN -REGULAR HUMAN 50 UNIT/0.5 ML ML SQ SCH ×3 (07:30→16:30)
[2023-01-30] MEDS ORDERED: METOPROLOL TARTRATE 5 MG/5 ML INJ IV ONE (07:47)
[2023-01-30] MEDS ORDERED: NA CHLORIDE 0.9% 500 ML ONE (07:47)
--- NOTE | 2023-01-30 08:21 | P.PN ---
Subjective Date of Service: 01/30/23 Primary Care Provider: True Marie Chief Complaint: atrial fib Subjective: No new changes awaiting RIP and cardioversion with Dr. Silverman. The team is at the bedside Review of Systems 10-point ROS is otherwise unremarkable Physical Examination - Vital Signs Temperature: 97.8 F Blood Pressure: 120/76 Pulse: 75 Respirations: 20 Pulse Ox (%): 99 - Physical Exam General: Alert, In no apparent distress HEENT: Atraumatic, PERRLA, EOMI Neck: Supple, JVD not distended Respiratory: Clear to auscultation bilaterally, Normal air movement Cardiovascular: Regular rate/rhythm, Normal S1 S2 Gastrointestinal: Normal bowel sounds, No tenderness Musculoskeletal: No tenderness Integumentary: No rashes Neurological: Normal speech, Normal tone, Normal affect Lymphatics: No axilla or inguinal lymphadenopathy Assessment And Plan - Current Problems (Diagnosis) (1) Atrial fibrillation with RVR Current Visit: Yes Status: Chronic Plan: on coreg. Will start him on amiodaron. Will check a echo. He did have a severe murumur. Will consider anticoagulation. His chadvasc score is 3. Will wait till after he is seen by Dr. Jones. In case any procedures are planned. 01/30 cardioversion today (2) Heart failure, diastolic, acute Current Visit: Yes Status: Acute Plan: being diurseised by Dr. Silverman. He may cardiovert him in the afternoon (3) Diabetes Current Visit: Yes Status: Acute Plan: restrart his home medication. Add insulin sliding scale 01/23 a1c of 9.0 Will hold metformin for 48 hours as he had contrast. Will have his daughters bring his home meds Qualifiers: Diabetes mellitus type: type 2 Diabetes mellitus skilled nursing insulin use: without skilled nursing use Diabetes mellitus complication status: without complication Qualified Code(s): E11.9 - Type 2 diabetes mellitus without complications (4) Alcoholic cirrhosis of liver Current Visit: Yes Status: Acute Plan: will keep him NPO for now. His belly is tender but distended. Tympanic. So not likely to be fluid. We can decompress with an OG tube. Will check a flat plate xray in the am. Qualifiers: Ascites presence: without ascites Qualified Code(s): K70.30 - Alcoholic cirrhosis of liver without ascites (5) Hypothyroidism Current Visit: Yes Status: Acute Plan: check a tsh. restart his home levothyroxine Qualifiers: Hypothyroidism type: unspecified Qualified Code(s): E03.9 - Hypothyroidism, unspecified (6) Laryngeal cancer Current Visit: Yes Status: Acute Plan: s/p chemoradiation therapy. Will need to continue his treatment as an outpatient with Dr. Weldon (7) Mitral regurgitation Current Visit: Yes Status: Acute Plan: will discuss the patient with Dr. Silverman. Weather he needs to be transfererd for correction or outpatient work up Qualifiers: Cardiac valve disease etiology: nonrheumatic Qualified Code(s): I34.0 - Nonrheumatic mitral (valve) insufficiency Discharge Plan: Home Plan to discharge in: 24 Hours - Code Status/Comfort Care Code Status Assessed: No Physician Review: Patient Assessed, Agree with Above Assessment and Plan Critical Care: Yes Time Spent Managing PTS Care (In Minutes): 20
[2023-01-30] MEDS ORDERED: FUROSEMIDE 40 MG TABLET PO SCH (09:00)
[2023-01-30] MEDS: ENSURE HIGH PROTEIN 237 ML CAN PO SCH (09:00)
[2023-01-30] MEDS: HOME MED 1 EA UNK (Empagliflozin [Jardiance] 25 MG Tablet) PO SCH (09:00)
[2023-01-30] MEDS: UMECLIDINIUM BROMIDE 62.5 MCG IH SCH (09:00)
[2023-01-30] MEDS: METFORMIN HCL 500 MG TAB PO SCH ×2 (10:09→17:05)
[2023-01-30] MEDS: CITALOPRAM 10 MG TABLET PO SCH (10:10)
[2023-01-30] MEDS: PANTOPRAZOLE 40MG TABLET PO SCH (10:10)
[2023-01-30] MEDS: APIXABAN 5 MG TABLET PO SCH (10:10)
[2023-01-30] MEDS: METOPROLOL TAR 25 MG TAB PO SCH (10:10)
[2023-01-30 10:29] VITALS: O2SAT 100
--- NOTE | 2023-01-30 12:41 | TEE ---
TRANSESOPHAGEAL ECHOCARDIOGRAM REPORT CARDIOLOGY DEPARTMENT DATE OF STUDY: 01/30/2023 HEIGHT: WEIGHT: DIAGNOSIS: ATRIAL FIBRILLATION/ [facility] COORDINATOR COMMENTS: RIP CARDIAC HISTORY: CATHERIZATION: SURGERY: PROSTHETIC VALVE: PACEMAKER: 2 DIMENSIONAL ASSESSMENT: RIGHT ATRIUM: ENLARGED LEFT ATRIUM: ENLARGED RIGHT VENTRICLE: NORMAL LEFT VENTRICLE: DEPRESSED EJECTION FRACTION TRICUSPID VALVE: SEVERE TRICUSPID REGURGITATION MITRAL VALVE: SEVERE MITRAL REGURGITATION PULMONIC VALVE: NORMAL AORTIC VALVE: NORMAL PERICARDIAL EFFUSION: NONE AORTIC ROOT: NORMAL EJECTION FRACTION: % LEFT VENTRICULAR WALL MOTION: MILD GLOBAL HYPOKINESIS DOPPLER/COLOR FLOW: SEE BELOW COMMENTS: 1. TRANSESOPHAGEAL ECHOCARDIOGRAM WAS INSERTED WITHOUT DIFFICULTY 2. SEVERE MITRAL REGURGITATION 3. SEVERE TRICUSPID REGURGITATION 4. NO LEFT ATRIAL APPENDAGE THROMBUS TECHNOLOGIST: CHAVEZ SEWELL
[2023-01-30] MEDS: HYDROMORPHONE HCL 0.5 MG/0.5 ML INJ IV PRN (13:58)
[2023-01-30 17:04] VITALS: TEMP 97
--- NOTE | 2023-01-30 17:15 | OP ---
Date of Procedure: 01/30/2023 Surgeon: AILYN ELEDR Procedures Performed: 1.Transesophageal echocardiogram. 2.Electrical cardioversion. Diagnosis: Atrial fibrillation. Description Of Procedure: After risks, benefits, and alternatives were explained, the patient agreed to procedure and signed informed consent. Then, we used the viscous and lidocaine to numb the throa t and then I gave 5 mg of Versed and then RIP probe was inserted. RIP was performed without difficul ties. I removed the RIP probe and then charged to 200 joule in synchronized fashion. Cardioversion was performed and failed to convert in sinus rhythm and then upgraded the electricity to 250 joule an d also it failed to convert in sinus rhythm. The patient at the end of procedure was stable. Conclusion: Successful transesophageal echocardiogram and the patient did not respond to cardioversi on. Plan: Outpatient evaluation by Cardiothoracic Surgery for double valve repair and appendage closure and Maze procedure. SR/MODL Voice ID: [id number] Report ID: [id number]
--- NOTE | 2023-01-30 17:22 | PN ---
Date of Progress Note: 01/30/2023 Subjective: Seen by bedside. Doing well. Appears to be euvolemic. No chest pain or shortness of b reath. No nausea, vomiting, diarrhea. He is still in AFib. All other systems reviewed and they wer e negative. Physical Examination: Vital Signs: Reviewed. Head and Neck: Pupils are equal, reactive to light. Intact eye movements. No JVD. No cervical lym phadenopathy. Neck is supple. Thyroid is not enlarged. Lungs: Clear to auscultation bilaterally. No rhonchi, wheezing, or crackles. No accessory muscle u se. Heart: Irregularly irregular. No extra sounds. Abdomen: Soft, nontender. Bowel sounds positive. No organomegaly. No masses or hernia. No rigidi ty or rebound. Extremities: No clubbing or cyanosis. Intact pulses. Skin: No rash. Neurologic: Alert, awake, oriented x3. No acute focal deficits appreciated. Investigations: Labs were reviewed. Assessment And Recommendations: 1.Acute on chronic systolic heart failure exacerbation. Diuresed very well and currently on oral La six. Continue current management. 2.Atrial fibrillation. Continue sotalol. He failed cardioversion today, so we will plan for possib le atrial fibrillation ablation as an outpatient to finish sotalol and Eliquis. From Card[facility], the patient can be released to follow up as an outpatient as he has severe mitral and tricusp id valve regurgitation. See below. 3.Valvular heart disease. He has severe mitral valve and tricuspid valve regurgitation per RIP that was done today. He needs surgical intervention. The patient can be released as he is dynamically s table. Plan for outpatient evaluation by Cardiothoracic Surgery for double valve repair. He will need heart cardiac catheterization prior to that. SR/MODL Voice ID: [id number] Report ID: [id number]
--- NOTE | 2023-01-30 17:38 | P.DS ---
Admission Date: 01/23/23 Discharge Date: 01/30/23 Primary Care Provider: True Marie Disposition: ROUTINE DISCHARGE Reason for Admission: atrial fib - Problems (1) Atrial fibrillation with RVR Current Visit: Yes Status: Chronic (2) Heart failure, diastolic, acute Current Visit: Yes Status: Acute (3) Diabetes Current Visit: Yes Status: Acute Qualifiers: Diabetes mellitus type: type 2 Diabetes mellitus long-term insulin use: without manager intermediate use Diabetes mellitus complication status: without complication Qualified Code(s): E11.9 - Type 2 diabetes mellitus without complications (4) Alcoholic cirrhosis of liver Current Visit: Yes Status: Acute Qualifiers: Ascites presence: without ascites Qualified Code(s): K70.30 - Alcoholic cirrhosis of liver without ascites (5) Hypothyroidism Current Visit: Yes Status: Acute Qualifiers: Hypothyroidism type: unspecified Qualified Code(s): E03.9 - Hypothyroidism, unspecified (6) Laryngeal cancer Current Visit: Yes Status: Acute (7) Mitral regurgitation Current Visit: Yes Status: Acute Qualifiers: Cardiac valve disease etiology: nonrheumatic Qualified Code(s): I34.0 - Nonrheumatic mitral (valve) insufficiency Brief History of Present Illness: Patient is a pleasant gentleman. He has a history of alcoholic cirhossis with recurrent ascitis. He has a history of a fib. The patient has been having some abdominal pain today. Was thinking it was ascitis. The patient came to the ER. The patient was found to be in Afib with RVR. Was started on amiodarone and admitted. Hospital Course: Patient was admitted to the ICU for atrial fib. Was seen by Dr. Silverman. He had an echocardiogram. He has severe mitral and tricuspid valve with reduced ejaction approx 40% The patient's rhythm was difficult to control. We worked with his beta blockers. Had a RIP and cardioversion . He did not respond. He can go home on sotalol, eliquis and fuorsemide. Have discussed the patient with his PCP. Dr. Marie. Will need follow up with Cardiology and CT surgery. Vital Signs/Physical Exam: Temp Pulse Resp BP Pulse Ox 97.0 F 72 21 H 104/60 100 01/30/23 16:00 01/30/23 16:00 01/30/23 15:00 01/30/23 16:00 01/30/23 15:00 General: Alert, In no apparent distress HEENT: Atraumatic, PERRLA, EOMI Neck: Supple, JVD not distended Respiratory: Clear to auscultation bilaterally, Normal air movement Cardiovascular: Regular rate/rhythm, Normal S1 S2 Gastrointestinal: Normal bowel sounds, No tenderness Musculoskeletal: No tenderness Integumentary: No rashes Neurological: Normal speech, Normal tone, Normal affect Lymphatics: No axilla or inguinal lymphadenopathy Laboratory Data at Discharge: WBC 4.40 thou/uL (4.3-10.9) 01/30/23 04:34 Hgb 10.4 g/dL (13.6-17.9) L 01/30/23 04:34 Hct 31.9 % (39.6-49.0) L 01/30/23 04:34 Plt Count 152 thou/uL (152-406) 01/30/23 04:34 PT 25.4 SECONDS (9.5-12.5) H 01/23/23 06:20 INR 2.31 01/23/23 06:20 Sodium 138 mEq/L (136-145) 01/30/23 04:34 Potassium 3.7 mEq/L (3.5-5.1) 01/30/23 04:34 BUN 32 mg/dL (7-18) H 01/30/23 04:34 Creatinine 0.94 mg/dL (0.70-1.30) 01/30/23 04:34 Glucose 105 mg/dL (74-106) 01/30/23 04:34 Magnesium 1.9 mg/dL (1.6-2.4) 01/30/23 04:34 Total Bilirubin 1.2 mg/dL (0.2-1.0) H 01/29/23 06:16 AST 35 U/L (15-37) 01/29/23 06:16 ALT 65 U/L (16-61) H 01/29/23 06:16 Alkaline Phosphatase 71 U/L (45-117) 01/29/23 06:16 Lipase 15 U/L (13-75) 01/22/23 10:39 Home Medications: Carvedilol [Coreg] 1 tab PO BIDWM 11/16/21 Cetirizine HCl [Zyrtec*] 1 tab PO DAILY 11/16/21 Furosemide 1 tab PO DAILY 11/16/21 Levothyroxine Sodium 1 tab PO [id number] 11/16/21 Metformin HCl 1 tab PO BID 11/16/21 Omeprazole 1 tab PO DAILY 11/16/21 Rivaroxaban [Xarelto] 1 tab PO DAILY AT SUPPER 11/16/21 Spironolactone 1 tab PO DAILY 11/16/21 Atorvastatin Calcium [Lipitor*] 10 mg PO BEDTIME 01/22/23 Citalopram [Celexa*] 10 mg PO DAILY 01/22/23 Fluticasone/Salmeterol [Advair 250-50 Diskus] 2 inh IH DAILY 01/22/23 Hydrocodone/Acetaminophen [Hydrocodon-Acetamin 7.5-325/15] 15 ml PO BID PRN 01/22/23 Pantoprazole [Protonix Tab*] 40 mg PO DAILY 01/22/23 glipiZIDE [Glipizide] 10 mg PO BID 01/22/23 Apixaban [Eliquis] 5 mg PO BID 90 Days #180 tab 01/30/23 Furosemide [Lasix*] 40 mg PO DAILY 30 Days #30 tab 01/30/23 Sotalol HCl [Betapace*] 80 mg PO BID 6AM 6PM 90 Days #180 tab 01/30/23 New Medications: Sotalol HCl [Betapace*] 80 mg PO BID 6AM 6PM 90 Days #180 tab Apixaban [Eliquis] 5 mg PO BID 90 Days #180 tab Furosemide [Lasix*] 40 mg PO DAILY 30 Days #30 tab Diet: AHA Activity: Ad lenka Followup: Raymundo Marie DO [Primary Care Provider] - 1 Week Nghia Silverman MD [ACTIVE - CAN ADMIT] - 1-2 Weeks Time spent managing pt's care (in minutes): 75
[2023-01-30 18:39] VITALS: BP 129/80
--- NOTE | 2023-01-31 12:17 | EKG ---
Test Date: 2023-01-30 Test Time: 08:25:33 Net Sorter: SURESH MEASUREMENT RESULTS: Intervals: Rate: 87 [place]: QRSD: 166 QT: 458 QTc: 551 [place]: P: [place]: QRS: 47 T: 237 INTERPRETIVE STATEMENTS: Atrial fibrillation Left bundle branch block Abnormal ECG Compared to ECG 01/22/2023 10:39:43 Left bundle-branch block now present T-wave abnormality no longer present Possible ischemia no longer present Electronically Signed On 01-31-23 12:14:05 CDT by Nghia Silverman
== END 2023-01-30 18:25 | disposition home or self-care (01) | DRG 308 ==
LOC: ER 10:18 → ERHOLD 12:45 → 3RD-ICU 15:56 → OBSVTOIN 01-23 12:35
PROVIDERS: ADMIT Internal Medicine; ATTEND Internal Medicine
PROC: B24BZZ4 Ultrasonography of Heart with Aorta, Transesophageal (ICD-10-PCS; principal; 2023-01-30)
DX: I48.91 Unspecified atrial fibrillation (principal); I50.23 Acute on chronic systolic (congestive) heart failure; I13.0 Hypertensive heart and chronic kidney disease with heart failure and stage 1 through stage 4 chronic kidney disease, or unspecified chronic kidney disease; N17.9 Acute kidney failure, unspecified; N18.9 Chronic kidney disease, unspecified; E11.22 Type 2 diabetes mellitus with diabetic chronic kidney disease; J44.9 Chronic obstructive pulmonary disease, unspecified; E03.9 Hypothyroidism, unspecified; C32.9 Malignant neoplasm of larynx, unspecified; I08.1 Rheumatic disorders of both mitral and tricuspid valves; K70.30 Alcoholic cirrhosis of liver without ascites; R01.1 Cardiac murmur, unspecified; R06.03 Acute respiratory distress; Z79.84 Long term (current) use of oral hypoglycemic drugs; Z79.02 Long term (current) use of antithrombotics/antiplatelets; Z79.01 Long term (current) use of anticoagulants; Z90.49 Acquired absence of other specified parts of digestive tract; Z87.891 Personal history of nicotine dependence; Z79.899 Other long term (current) drug therapy; Z79.890 Hormone replacement therapy
CPT/HCPCS: 36415; 71045; 74018; 74177; 80048; 80053; 80076; 82947; 83036; 83690; 83735; 83880; 84439; 84443; 84484; 85025; 85610; 92960; 93005; 93306; 93312; 96360; 96361; 96365; 96366; 96375; 99285; G0378; J0282; J0461; J1170; J1815; J1940; J2250; J2405; J3475; J7030; J7040; J7060; J7799; Q9967

== ENCOUNTER 2023-05-02 02:13 | Inpatient (IN) | payer OTHER ==
--- OUTSIDE RECORDS SUMMARY | 2023-05-02 02:21 | XMS REPORT | Continuity of Care Document ---
:1945 Author Organization [facility] t Address [address] [place] [address] Care Team Providers Name Role Phone Raymundo Marie DO Primary Care Physician ALONSO URIBE Attending Clinician Unavailable FLORI RMOERO Attending Clinician Unavailable RAYMUNDO MARIE Attending Clinician Unavailable EDVIN MURO Attending Clinician Unavailable LAB90 Attending Clinician Unavailable MICHELLE GARRETT Attending Clinician Unavailable ERIKA SUAZO Attending Clinician Unavailable FLOR LU Attending Clinician Unavailable GENEVA DOBSON Attending Clinician Unavailable INGRIS FARR Attending Clinician Unavailable 39, HOLTER Attending Clinician Unavailable Hiram LINDQUIST, Katiuska Miranda Attending Clinician [phone] Coral Montaño MD Attending Clinician [phone] Girish Harrington MD Attending Clinician [phone] LAUREEN OJEDA Attending Clinician Unavailable Stu LINDQUIST, Chapin Randle Attending Clinician Angelique Spann DO Attending Clinician MARGARITO RENEE Attending Clinician Unavailable DANIELLE ROGEL Attending Clinician Unavailable TYRONE ESTRADA Attending Clinician Unavailable CHARANJIT LIRA Attending Clinician Unavailable RADIOLOGY, DEPT Attending Clinician Unavailable JORGE LUA Attending Clinician Unavailable MARIO CORTEZ Attending Clinician Unavailable LAB39 Attending Clinician Unavailable HALLIE ABREU Attending Clinician Unavailable Raymundo Marie DO Attending Clinician AVA MENDIETA Attending Clinician Unavailable ALONSO URIBE Admitting Clinician Unavailable CORAL MONTAÑO Admitting Clinician Unavailable ANGELIQUE SPANN Admitting Clinician Unavailable GIRISH HARRINGTON Admitting Clinician Unavailable Payers Payer Name Policy Type Policy Number Effective Date Expiration Date [facility] [id number] [facility] TXP 7 [id number] 2021 CLASSIC NO PREMIUM 00:00:00 R2T Problems Condition Condition Condition Status Onset Resolution Last Treating Co mments Source Name Details Category Date Date Treatment Clinician Date History of History of Disease Active Gaby yongmare diverticul diverticul 03-06 Se ybold itis itis 00:00: - 00 Externa l Tense Tense Disease Active [facility] asc[facility] asc[facility] Hosp[facility] 00 l Anxiety Anxiety Disease Active Anai 706 Seybold 00:00: - 00 Externa l History of History of Disease Active Gaby kimbrough cardiovers cardiovers 01-31 Se ybold ion ion 00:00: - 00 Externa l 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 00 Exte rna valves valves l Pleural Pleural Disease Active [facility] effusion, effusion, 01-31 st bilateral bilateral 00:00: Hosp yaya 00 l Diverticul Diverticul Disease Active M ethodi itis itis 7 st 00:00: Hospita 00 l Chronic Chronic Disease Active Anai cough cough 2-24 Seybold 00:00: - 00 Externa l 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 00:00: - with with 00 Externa 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 08-26 Se ybold to to 00:00: - conditions conditions 00 Ex terna classified classified l elsewhere elsewhere Well adult Well adult Disease Active Gaby kimbrough exam exam 9- Seybold 00:00: - 00 Externa l Current Current Disease Active Anai mild mild 9-29 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:00: - major major 00 Externa depressive depressive l disorder disorder without without prior prior episode episode Gastroesop Gastroesop Disease Active Gaby kimbrough hageal hageal 6-29 Seybold reflux reflux 00:00: - disease disease 00 Externa without without l esophagiti esophagiti s s Diabetic Diabetic Disease Active Rakanse y ulcer of ulcer of 29 Seybol d toe of toe of 00:00: [...] heart heart 00:00: - failure, failure, 00 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 Social History Social Habit Start Date Stop Date Quantity Comments Source Gender identity Anai Se ybold - External [facility] orientation [facility] History of tobacco Current smoker [facility] History of Social 2023-02-20 2023-02-[address] function 00:00:00 00:00:00 Hospital Alcohol Comment 2023-02-16 2023-02-16 STOPPED 5 YEARS Meth odist 00:00:00 00:00:00 AGO Hospital Alcohol intake 2023-02-16 2023-02-16 Ex-drinker Druze 00:00:00 00:00:00 (finding) Hospital Tobacco Comment 2023-02-01 2023-02-01 Pt stopped Druze 00:00:00 00:00:00 smoking Hospital cigarettes September 2022 Tobacco use and 2023-02-01 2023-02-01 Smokeless tobacco [facility] exposure 00:00:00 00:00:00 non-user Hospital Cigarettes smoked 2022-10-31 2022-10-31 Anai Nieto - current (pack per 00:00:00 00:00:00 Externa l day) - Reported Cigarette 2022-10-31 2022-10-31 Anai Nieto - pack-years 00:00:00 00:00:00 External Education 2021-09-15 2021-09-15 5 Anai Nieto - 00:00:00 00:00:00 External Sex [birth year] OSCAR Suarez 00:00:00 00:00:00 [facility] Smoking Status Start Date Stop Date Source Ex-smoker 2022-10-31 00:00:00 2022-10-31 00:00:00 Anai pang - External Smokes tobacco daily 2021-09-15 00:00:00 Anai Nieto - External Medications Ordered Filled Start Stop Current Ordering Indication Dosage Frequency Signature Comments Components Source Medication Medication Date Date Medication? Clinician (SIG) Name Name glipiZIDE Yes [id number] 10mg Take 1 Ke lsey 10 MG oral 9-13 tablet (10 Sey bold Tablet 00:00: mg total) - 00 by mouth Externa daily l (before a meal). FLUTICASONE Yes [id number] 50ug Use 1 K elsey PROPIONATE, 9-13 spray (50 Sey bold NASAL, 50 00:00: mcg total) - MCG/ACT 00 in each Externa nasal nostril l Suspension daily. Omeprazole Yes [id number] 40mg TAKE 1 Anai 40 MG oral 04-09 CAPSULE(40 Sey bold Delayed 00:00: MG) BY - Release 00 MOUTH Externa Capsule DAILY l Losartan 2022- Yes 25mg Take 1 Anai Potassium 04-03 tablet (25 Sey bold 25 MG oral 00:00: 05:59 mg total) - Tablet 00 :00 by mouth Externa every l morning. Fluocinonid Yes APPLY Kelse y e 0.05 % 03-31 TOPICALLY Seybol d apply 00:00: TO THE - externally 00 AFFECTED Exter na Cream AREA TWICE l DAILY glipiZIDE 2022- No [id number] 10mg TAKE 1 K elsey 10 MG oral 03-18 TABLET(10 Sey bold Tablet 00:00: 00:00 MG) BY - 00 :00 MOUTH Externa TWICE l DAILY Levothyroxi Yes [id number] 125ug Take 1 Anai ne Sodium - tablet Seybold 125 MCG 00:00: (125 mcg - oral Tablet 00 total) by Ext lalitha mouth l daily Omeprazole Yes every 24 Rakan sey 20 MG oral 8- hours Seybold Delayed 14:33: - Release 07 Externa Capsule l Sotalol HCl 2022- Yes [id number] 80mg Take 1 Anai 80 MG oral 02-26 tablet (80 Se ybold Tablet 00:00: 04:59 mg total) - 00 :00 by mouth 2 Externa times l daily Apixaban 2022- Yes [id number] 5mg Take 1 K elsey (Eliquis) 5 02-26 tablet (5 Se ybold MG oral 00:00: 04:59 mg total) - Tablet 00 :00 by mouth 2 Externa times l daily Sotalol HCl 2022- Yes [id number] 80mg Take 1 Anai 80 MG oral 8-05-28 tablet (80 Se ybold Tablet 00:00: 04:59 mg total) - 00 :00 by mouth 2 Externa times l daily Apixaban 2022- Yes [id number] 5mg Take 1 K elsey (Eliquis) 5 8-31 tablet (5 Se ybold MG oral 00:00: 04:59 mg total) - Tablet 00 :00 by mouth 2 Externa times l daily Sotalol HCl 2022- Yes [id number] 80mg Take 1 Anai 80 MG oral 02-26 tablet (80 Se ybold Tablet 00:00: 04:59 mg total) - 00 :00 by mouth 2 Externa times l daily Apixaban 2022- Yes [id number] 5mg Take 1 K elsey (Eliquis) 5 02-26 tablet (5 Se ybold MG oral 00:00: 04:59 mg total) - Tablet 00 :00 by mouth 2 Externa times l daily cholecalcif Yes 2000U QD Take 1 Met hodi jani, 02-[address] vitamin D3, 12:02: (2,000 Hosp yaya 50 mcg 00 Units l (2,000 total) by unit) mouth capsule daily. capsule omeprazole 0 2022- No 20mg QD Take 1 Meth crystal (PriLOSEC) 02-[address] 20 MG 12:02: 00:00 (20 mg Hospita capsule 00 :00 total) by l mouth daily. levothyroxi 0 Yes 112ug QD Take 1 Met hodi ne - tablet st (SYNTHROID) 12:02: (112 mcg Ho spita 112 mcg 15 total) by l tablet mouth daily. glipiZIDE 0 Yes 10mg Q.5D Take 1 Method i (GLUCOTROL) - tablet (10 st 10 MG 12:02: mg total) Hospita tablet 15 by mouth 2 l (two) times a day before meals. metFORMIN 2022-0 Yes 1000mg Q.5D Take 1 Meth crystal (GLUCOPHAGE 7-[address] ) 1,000 mg 12:02: (1,000 mg Ho spita tablet 15 total) by l mouth 2 (two) times a day with meals. furosemide 2022-0 Yes 40mg QD Take 1 Metho di (LASIX) 40 7-26 tablet (40 st mg tablet 12:02: mg total) Hos alisia 15 by mouth l daily. atorvastati 2022-0 Yes 10mg QD Take 1 Meth crystal n (LIPITOR) 7-26 tablet (10 st 10 mg 12:02: mg total) Hospita tablet 15 by mouth l daily. cetirizine 2022-0 Yes 5mg QD Take 1 Metho di (ZyrTEC) 5 -26 tablet (5 st MG tablet 12:02: mg total) Hos alisia 15 by mouth l daily. citalopram 2022-0 Yes 10mg QD Take 1 Metho di (CeleXA) 10 -26 tablet (10 st MG tablet 12:02: mg total) Hos alisia 15 by mouth l daily. pantoprazol 2022-0 Yes 40mg QD Take 1 Meth crystal e -26 tablet (40 st (PROTONIX) 12:02: mg total) Ho spita 40 MG EC 15 by mouth l tablet daily. fluticasone 2022-0 Yes 1{puff} Q.5D Inhale 1 Methodi propion-rafael [address] meteroL 12:02: (two) Hospita (ADVAIR/WIX 15 times a l ALKA INHUB) day. For 100-50 COPD mcg/dose DISKUS apixaban 2022-0 Yes 5mg Q.5D Take 1 Methodi (ELIQUIS) 5 - tablet (5 st mg tablet 12:02: mg total) Hos alisia 15 by mouth 2 l (two) times a day. sotaloL 2022-0 Yes 80mg Q.5D Take 1 Methodi (BETAPACE) -26 tablet (80 st 80 MG 12:02: mg total) Hospita tablet 15 by mouth 2 l (two) times a day. ALPRAZolam 2022-0 Yes .25mg Q24H Take 1 Meth crystal (XANAX) 02-[address] 0.25 MG 12:02: (0.25 mg Hospit a tablet 15 total) by l mouth daily as needed for anxiety. Per [place] PDMP: last filled- 02/20/23, quantity- 20, day supply- 20. ciprofloxac 2022-0 2022- No 500mg Q.5D Take 1 Me thodi in (Cipro) 02-20 08-[address] 500 MG 00:00: 04:59 (500 mg Hospita tablet 00 :00 total) by l mouth 2 (two) times a day for 11 days. HYDROcodone 2022-2022- [place] [id number] 15mL Q8H Take 15 mL Methodi -acetaminop 02-[address] hen (HYCET) 00:00: 04:59 every 8 Ho spita 2.5-108.3 00 :00 (eight) l mg/5 mL hours as solution needed for moderate pain for up to 5 days .acute pain. Per [place] PDMP: last filled- 01/20/23, quantity- 630 mL, day supply- 14. Max Daily Amount: 45 mL spironolact 2022-0 2022- No 50mg QD Take 1 Met hodi one 02-14 tablet (50 st (ALDACTONE) 00:00: 04:59 mg total) Hospita 50 MG 00 :00 by mouth l tablet daily for 30 days. spironolact 2022-2022- No 25mg QD Take 1 Met hodi one 02-13 tablet (25 st (ALDACTONE) 16:35: 00:00 mg total) Hospita 25 MG 33 :00 by mouth l tablet daily. omeprazole 2022-2022- No 20mg QD Take 1 Meth crystal (PriLOSEC) 02-[address] 20 MG 15:30: 00:00 (20 mg Hospita capsule 02 :00 total) by l mouth daily. Daughter confirm Pt. Taking Protonix as well. Metronidazo 2022- No Kelse y le 500 MG 02-03 Seybold oral Tablet 00:00: 00:00 - 00 :00 Externa l ciprofloxac 2022-2022- No 500mg Q.5D Take 1 Me thodi in (Cipro) 02-[address] 500 MG 00:00: 00:00 (500 mg Hospita tablet 00 :00 total) by l mouth 2 (two) times a day for 5 days. metroNIDAZO 2022-0 2022- No 500mg Q.[id number] Take 1 Methodi LE (FlagyL) 02-[id number] 500 MG 00:00: 00:00 3D (500 mg Hospita tablet 00 :00 total) by l mouth 3 (three) times a day for 5 days. 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 l Paroxetine 2022- No every 24 Ke lsey HCl 20 MG 01-31-06 hours Seybold oral Tablet 10:01: 00:00 - 35 :00 Externa l Umeclidiniu 2022- No [id number] Inhale 1 Anai m [place] 01-31- inhalation Sey bold (Incruse 10:00: 00:00 into the - Ellipta) 52 :00 lungs Externa 62.5 daily l MCG/INH inhalation AEROSOL POWDER, BREATH ACTIVATED Sotalol HCl Yes [id number] 80mg Take 1 Anai 80 MG oral - tablet (80 Sey bold Tablet 00:00: mg total) - 00 by mouth 2 Externa times l daily Fluticasone Yes [id number] 1{puff} Inhale 1 Anai -Salmeterol 7- puff into Sey bold (Advair 00:00: the lungs - Diskus) 00 2 times Externa 250-50 daily l MCG/ACT inhalation AEROSOL POWDER, BREATH ACTIVATED Alprazolam Yes [id number] .25mg QD Take 1 Anai 0.25 MG 7-06 tablet Seybold oral Tablet 00:00: (0.25 mg - 00 total) by Externa mouth l daily as needed Fluticasone 0 Yes [id number] 1{puff} Inhale 1 Anai -Salmeterol 7-06 puff into Sey bold (Advair 00:00: the lungs - Diskus) 00 2 times Externa 250-50 daily l MCG/ACT inhalation AEROSOL POWDER, BREATH ACTIVATED Alprazolam Yes [id number] .25mg QD Take 1 Anai 0.25 MG 7-06 tablet Seybold oral Tablet 00:00: (0.25 mg - 00 total) by Externa mouth l daily as needed Fluticasone 0 Yes [id number] 1{puff} Inhale 1 Anai -Salmeterol 7-06 puff into Sey bold (Advair 00:00: the lungs - Diskus) 00 2 times Externa 250-50 daily l MCG/ACT inhalation AEROSOL POWDER, BREATH ACTIVATED Alprazolam Yes [id number] .25mg QD Take 1 Anai 0.25 MG 7-06 tablet Seybold oral Tablet 00:00: (0.25 mg - 00 total) by Externa mouth l daily as needed Fluticasone 2022-0 Yes [id number] 1{puff} Inhale 1 Anai -Salmeterol 7-06 puff into Olivier bold (Advair 00:00: the lungs - Diskus) 00 2 times Externa 250-50 daily l MCG/ACT inhalation AEROSOL POWDER, BREATH ACTIVATED Alprazolam Yes [id number] .25mg QD Take 1 Anai 0.25 MG 7-06 tablet Seybold oral Tablet 00:00: (0.25 mg - 00 total) by Externa mouth l daily as needed Eliquis 5 2022-0 Yes 5mg Take 1 Anai MG oral 7-05 tablet (5 Seybold Tablet 00:00: mg total) - 00 by mouth 2 Externa times l daily Sotalol HCl 2022- No Kelse y 80 MG oral 7-05 07-06 Seybold Tablet 00:00: 00:00 - 00 :00 Externa l Cetirizine 2022-0 2022- No [id number] TAKE 1 Anai HCl 5 MG 7-03 07-06 TABLET(5 Seybol d oral Tablet 00:00: 00:00 MG) BY - 00 :00 MOUTH Externa DAILY l HYDROcodone 2022-0 2022- No 15mL Q8H Take 15 mL Methodi -acetaminop 01-20-[address] hen (HYCET) 00:00: 00:00 every 8 Ho spita 2.5-108.3 00 :00 (eight) l mg/5 mL hours as solution needed for moderate pain. Per [place] PDMP: last filled- 01/20/23, quantity- 630 mL, day supply- 14. 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 Insulin Yes [id number] 2 units if Anai Aspart 6-05 blood Seybold (NovoLOG 00:00: sugar is - FlexPen) 00 250-299, 4 Exter na 100 UNIT/ML units if l subcutaneou blood s Solution sugar is Pen-injecto 300-350, 6 r units if blood sugar is 351-399, 8 units if blood sugar is above 400; Max dose of 25 units per day Insulin Yes [id number] 2 units if Anai Aspart 6-05 blood Seybold (NovoLOG 00:00: sugar is - FlexPen) 00 250-299, 4 Exter na 100 UNIT/ML units if l subcutaneou blood s Solution sugar is Pen-injecto 300-350, 6 r units if blood sugar is 351-399, 8 units if blood sugar is above 400; Max dose of 25 units per day Insulin Yes [id number] 2 units if Anai Aspart 6-05 blood Seybold (NovoLOG 00:00: sugar is - FlexPen) 00 250-299, 4 Exter na 100 UNIT/ML units if l subcutaneou blood s Solution sugar is Pen-injecto 300-350, 6 r units if blood sugar is 351-399, 8 units if blood sugar is above 400; Max dose of 25 units per day Insulin Yes [id number] 2 units if Anai Aspart 6-05 blood Seybold (NovoLOG 00:00: sugar is - FlexPen) 00 250-299, 4 Exter na 100 UNIT/ML units if l subcutaneou blood s Solution sugar is Pen-injecto 300-350, 6 r units if blood sugar is 351-399, 8 units if blood sugar is above 400; Max dose of 25 units per day Insulin 202- No [id number] 2 units if Anai Aspart 6-05 04-10 blood Seybold (NovoLOG 00:00: 00:00 sugar is - FlexPen) 00 :00 250-299, 4 Exter na 100 UNIT/ML units if l subcutaneou blood s Solution sugar is Pen-injecto 300-350, 6 r units if blood sugar is 351-399, 8 units if blood sugar is above 400; Max dose of 25 units per day Umeclidiniu Yes [id number] Inhale 1 Anai quiros [place] 5-31 inhalation Seyb old (Incruse 08:13: into the - Ellipta) 15 lungs Externa 62.5 daily l MCG/INH inhalation AEROSOL POWDER, BREATH ACTIVATED Lidocaine Yes Apply 1 Rakan sey % apply - applicatio Seybol d externally 08:13: n - Ointment 15 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 l Omeprazole 2022-0 Yes every 24 Rakan sey 20 MG oral 5-31 hours Seybold Delayed 08:13: - Release 15 Externa Capsule l Paroxetine 2022-0 Yes every 24 Rakan sey HCl 20 MG 5-31 hours Seybold oral Tablet 08:13: - 15 Externa l Umeclidiniu Yes [id number] Inhale 1 Anai quiros [place] 5-31 inhalation Seyb old (Incruse 08:13: into the - Ellipta) 15 lungs Externa 62.5 daily l MCG/INH inhalation AEROSOL POWDER, BREATH ACTIVATED Lidocaine Yes Apply 1 Rakan sey % apply 5- applicatio Seybol d externally 08:13: n - Ointment 15 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 Insulin Yes [id number] 10 units Ke lsey Detemir 5-31 sc daily Seybold (Levemir 00:00: - FlexPen) 00 Externa 100 UNIT/ML l subcutaneou s Solution Pen-injecto r Insulin Yes [id number] 2 units if Anai Aspart 5-31 blood Seybold (NovoLOG 00:00: sugar is - FlexPen) 00 250-2994 Externa 100 UNIT/ML units if l subcutaneou blood s Solution sugar is Pen-injecto 300-3506 r units if blood sugar is 351-3998 units if blood sugar is above 400Max dose of 25 units per day Furosemide Yes [id number] 40mg QD Take 1 Anai (Lasix) 40 5-31 tablet (40 Sey bold MG oral 00:00: mg total) - Tablet 00 by mouth Externa daily as l needed Insulin Yes [id number] 10 units Ke lsey Detemir 5-31 sc daily Seybold (Levemir 00:00: - FlexPen) 00 Externa 100 UNIT/ML l subcutaneou s Solution Pen-injecto r Insulin Yes [id number] 2 units if Anai Aspart 5-31 blood Seybold (NovoLOG 00:00: sugar is - FlexPen) 00 250-2994 Externa 100 UNIT/ML units if l subcutaneou blood s Solution sugar is Pen-injecto 300-3506 r units if blood sugar is 351-3998 units if blood sugar is above 400Max dose of 25 units per day Furosemide Yes [id number] 40mg QD Take 1 Anai (Lasix) 40 5-31 tablet (40 Sey bold MG oral 00:00: mg total) - Tablet 00 by mouth Externa daily as l needed Insulin Yes [id number] 10 units Ke lsey Detemir 5-31 sc daily Seybold (Levemir 00:00: - FlexPen) 00 Externa 100 UNIT/ML l subcutaneou s Solution Pen-injecto r Furosemide 2022-0 Yes [id number] 40mg QD Take 1 Anai (Lasix) 40 5-31 tablet (40 Sey bold MG oral 00:00: mg total) - Tablet 00 by mouth Externa daily as l needed Insulin 2022-0 Yes [id number] 10 units Ke lsey Detemir 5-31 sc daily Seybold (Levemir 00:00: - FlexPen) 00 Externa 100 UNIT/ML l subcutaneou s Solution Pen-injecto r Furosemide 2022-0 Yes [id number] 40mg QD Take 1 Anai (Lasix) 40 5-31 tablet (40 Sey bold MG oral 00:00: mg total) - Tablet 00 by mouth Externa daily as l needed Insulin 2022-0 Yes [id number] 10 units Ke lsey Detemir 5-31 sc daily Seybold (Levemir 00:00: - FlexPen) 00 Externa 100 UNIT/ML l subcutaneou s Solution Pen-injecto r Furosemide 2022-0 Yes [id number] 40mg QD Take 1 Anai (Lasix) 40 5-31 tablet (40 Sey bold MG oral 00:00: mg total) - Tablet 00 by mouth Externa daily as l needed Insulin 2022-0 Yes [id number] 10 units Ke lsey Detemir 5-31 sc daily Seybold (Levemir 00:00: - FlexPen) 00 Externa 100 UNIT/ML l subcutaneou s Solution Pen-injecto r Furosemide 2022-0 Yes [id number] 40mg QD Take 1 Anai (Lasix) 40 5-31 tablet (40 Sey bold MG oral 00:00: mg total) - Tablet 00 by mouth Externa daily as l needed Furosemide 2022-0 Yes [id number] 40mg QD Take 1 Anai (Lasix) 40 5-31 tablet (40 Sey bold MG oral 00:00: mg total) - Tablet 00 by mouth Externa daily as l needed Insulin 2022-0 2023- No [id number] 10 units K elsey Detemir 5-31 09-13 sc daily Seybold (Levemir 00:00: 00:00 - FlexPen) 00 :00 Externa 100 UNIT/ML l subcutaneou s Solution Pen-injecto r HYDROcodone 3-0 Yes TAKE 15 ML Anai -Acetaminop 5-24 BY MOUTH Seyb old hen 7.5-325 00:00: TWICE - MG/15ML 00 DAILY FOR Externa oral PAIN. l Solution HYDROcodone 2023-0 Yes TAKE 15 ML Anai -Acetaminop 5-24 BY MOUTH Seyb old hen 7.5-325 00:00: TWICE - MG/15ML 00 DAILY FOR Externa oral PAIN. l Solution HYDROcodone 2023-0 Yes TAKE 15 ML Anai -Acetaminop 5-24 BY MOUTH Seyb old hen 7.5-325 00:00: TWICE - MG/15ML 00 DAILY FOR Externa oral PAIN. l Solution HYDROcodone 2023-0 Yes TAKE 15 ML Anai -Acetaminop 5-24 BY MOUTH Seyb old hen 7.5-325 00:00: TWICE - MG/15ML 00 DAILY FOR Externa oral PAIN. l Solution HYDROcodone 3-0 Yes TAKE 15 ML Anai -Acetaminop 5-24 BY MOUTH Seyb old hen 7.5-325 00:00: TWICE - MG/15ML 00 DAILY FOR Externa oral PAIN. l Solution HYDROcodone 2023-0 2022- No TAKE 15 ML Anai -Acetaminop 5-24 - BY MOUTH Sey bold hen 7.5-325 00:00: 00:00 TWICE - MG/15ML 00 :00 DAILY FOR Externa oral PAIN. l Solution Dexamethaso 2022-0 Yes TAKE 2 Samia ey ne 5-15 TABLETS BY Seybold (DECADRON) 00:00: MOUTH - 4 MG oral 00 TWICE Externa tablet DAILY FOR l 2 DAYS THEN TWICE DAILY FOR 1 DAY. START THE DAY AFTER EACH CHEMO TREATMENT Ondansetron 2022-0 Yes DISSOLVE 1 Anai (ZOFRAN) 4 5-15 TABLET ON Seyb old MG oral 00:00: THE TONGUE - TABLET 00 EVERY 4 TO Externa DISPERSIBLE 6 HOURS l NEEDED Dexamethaso 2023-0 Yes TAKE 2 Samia ey ne 5-15 [...] Externa DISPERSIBLE 6 HOURS l NEEDED Dexamethaso 2022- No TAKE 2 Rakan sey ne 5-15 07-06 TABLETS BY Seybold (DECADRON) 00:00: 00:00 MOUTH - 4 MG oral 00 :00 TWICE Externa tablet DAILY FOR l 2 DAYS THEN TWICE DAILY FOR 1 DAY. START THE DAY AFTER EACH CHEMO TREATMENT Ondansetron 0 2022- No DISSOLVE 1 Anai (ZOFRAN) 4 5-15 07-06 TABLET ON Sey bold MG oral 00:00: 00:00 THE TONGUE - TABLET 00 :00 EVERY 4 TO Externa DISPERSIBLE 6 HOURS l NEEDED Citalopram Yes [id number] TAKE 1 K elsey Hydrobromid 5-09 TABLET(10 Sey bold e 10 MG 00:00: MG) BY - oral Tablet 00 MOUTH Externa DAILY l Benadryl, 0 Yes SWALLOW 5 Rakan sey Maalox, 5-09 TO 10 ML Seybold Lidocaine 00:00: BEFORE - Viscous HCl 00 MEALS AND Ext lalitha (Magic EVERY l Mouthwash-E NIGHT AT qual Ratio) BEDTIME Citalopram 2022-0 Yes [id number] TAKE 1 K elsey Hydrobromid 5-09 TABLET(10 Sey bold e 10 MG 00:00: MG) BY - oral Tablet 00 MOUTH Externa DAILY l Benadryl, 2022-0 Yes SWALLOW 5 Rakan sey Maalox, 5-09 TO 10 ML Seybold Lidocaine 00:00: BEFORE - Viscous HCl 00 MEALS AND Ext lalitha (Magic EVERY l Mouthwash-E NIGHT AT qual Ratio) BEDTIME Citalopram 2022-0 Yes [id number] TAKE 1 K elsey Hydrobromid 5-09 TABLET(10 Sey bold e 10 MG 00:00: MG) BY - oral Tablet 00 MOUTH Externa DAILY l Benadryl, 2022-0 Yes SWALLOW 5 Rakan sey Maalox, 5-09 TO 10 ML Seybold Lidocaine 00:00: BEFORE - Viscous HCl 00 MEALS AND Ext lalitha (Magic EVERY l Mouthwash-E NIGHT AT qual Ratio) BEDTIME Citalopram 2022-0 Yes [id number] TAKE 1 K elsey Hydrobromid 5-09 TABLET(10 Sey bold e 10 MG 00:00: MG) BY - oral Tablet 00 MOUTH Externa DAILY l Citalopram 2022-0 Yes [id number] TAKE 1 K elsey Hydrobromid 5-09 TABLET(10 Sey bold e 10 MG 00:00: MG) BY - oral Tablet 00 MOUTH Externa DAILY l Citalopram 2022-0 Yes [id number] TAKE 1 K elsey Hydrobromid 5-09 TABLET(10 Sey bold e 10 MG 00:00: MG) BY - oral Tablet 00 MOUTH Externa DAILY l Citalopram 2022-0 Yes [id number] TAKE 1 K elsey Hydrobromid 5-09 TABLET(10 Sey bold e 10 MG 00:00: MG) BY - oral Tablet 00 MOUTH Externa DAILY l Benadryl, 2022-0 2022- No SWALLOW 5 Ke lsey Maalox, 5- 07-06 TO 10 ML Seybold Lidocaine 00:00: 00:00 BEFORE - Viscous HCl 00 :00 MEALS AND Ext lalitha (Magic EVERY l Mouthwash-E NIGHT AT qual Ratio) BEDTIME Spironolact 2022-0 Yes [id number] TAKE 1 Anai one 25 MG 5-08 TABLET(25 Seybo ld oral Tablet 00:00: MG) BY - 00 MOUTH Externa DAILY l Levothyroxi 2022-0 Yes [id number] TAKE 1 Anai ne Sodium 5-08 TABLET(112 Seyb old 112 MCG 00:00: MCG) BY - oral Tablet 00 MOUTH Externa EVERY l MORNING ON AN EMPTY STOMACH Spironolact 2022-0 Yes [id number] TAKE 1 Anai one 25 MG 5-08 TABLET(25 Seybo ld oral Tablet 00:00: MG) BY - 00 MOUTH Externa DAILY l Levothyroxi 2023-0 Yes [id number] TAKE 1 Anai ne Sodium 5-08 TABLET(112 Seyb old 112 MCG 00:00: MCG) BY - oral Tablet 00 MOUTH Externa EVERY l MORNING ON AN EMPTY STOMACH Spironolact 2023-0 Yes [id number] TAKE 1 Anai one 25 MG 5-08 TABLET(25 Seybo ld oral Tablet 00:00: MG) BY - 00 MOUTH Externa DAILY l Levothyroxi 2023-0 Yes [id number] TAKE 1 Anai ne Sodium 5-08 TABLET(112 Seyb old 112 MCG 00:00: MCG) BY - oral Tablet 00 MOUTH Externa EVERY l MORNING ON AN EMPTY STOMACH Spironolact 2023-0 Yes [id number] TAKE 1 Anai one 25 MG 5-08 TABLET(25 Seybo ld oral Tablet 00:00: MG) BY - 00 MOUTH Externa DAILY l Levothyroxi 2023-0 Yes [id number] TAKE 1 Anai ne Sodium 5-08 TABLET(112 Seyb old 112 MCG 00:00: MCG) BY - oral Tablet 00 MOUTH Externa EVERY l MORNING ON AN EMPTY STOMACH Spironolact 2023-0 Yes [id number] TAKE 1 Anai one 25 MG 5-08 TABLET(25 Seybo ld oral Tablet 00:00: MG) BY - 00 MOUTH Externa DAILY l Levothyroxi 2023-0 Yes [id number] TAKE 1 Anai ne Sodium 5-08 TABLET(112 Seyb old 112 MCG 00:00: MCG) BY - oral Tablet 00 MOUTH Externa EVERY l MORNING ON AN EMPTY STOMACH Spironolact 2023-0 Yes [id number] TAKE 1 Anai one 25 MG 5-08 TABLET(25 Seybo ld oral Tablet 00:00: MG) BY - 00 MOUTH Externa DAILY l Levothyroxi 2023-0 Yes [id number] TAKE 1 Anai ne Sodium 5-08 TABLET(112 Seyb old 112 MCG 00:00: MCG) BY - oral Tablet 00 MOUTH Externa EVERY l MORNING ON AN EMPTY STOMACH Spironolact 2023-0 Yes [id number] TAKE 1 Anai one 25 MG 5-08 TABLET(25 Seybo ld oral Tablet 00:00: MG) BY - 00 MOUTH Externa DAILY l Metformin 3-0 Yes [id number] TAKE 1 Ke lsey HCl 1000 MG 4-16 TABLET(100 Se ybold oral Tablet 00:00: 0 MG) BY - 00 MOUTH IN Externa THE l MORNING AND IN THE EVENING WITH MEALS Metformin 3-0 Yes [id number] TAKE 1 Ke lsey HCl 1000 MG 4-16 TABLET(100 Se ybold oral Tablet 00:00: 0 MG) BY - 00 MOUTH IN Externa THE l MORNING AND IN THE EVENING WITH MEALS Metformin 3-0 Yes [id number] TAKE 1 Ke lsey HCl 1000 MG 4-16 TABLET(100 Se ybold oral Tablet 00:00: 0 MG) BY - 00 MOUTH IN Externa THE l MORNING AND IN THE EVENING WITH MEALS Metformin 2022-0 Yes [id number] TAKE 1 Ke lsey HCl 1000 MG 4-16 TABLET(100 Se ybold oral Tablet 00:00: 0 MG) BY - 00 MOUTH IN Externa THE l MORNING AND IN THE EVENING WITH MEALS Metformin 3-0 Yes [id number] TAKE 1 Ke lsey HCl 1000 MG 4-16 TABLET(100 Se ybold oral Tablet 00:00: 0 MG) BY - 00 MOUTH IN Externa THE l MORNING AND IN THE EVENING WITH MEALS Metformin 3-0 Yes [id number] TAKE 1 Ke lsey HCl 1000 MG 4-16 TABLET(100 Se ybold oral Tablet 00:00: 0 MG) BY - 00 MOUTH IN Externa THE l MORNING AND IN THE EVENING WITH MEALS Metformin 2023-0 Yes [id number] TAKE 1 Ke lsey HCl 1000 MG 4-16 TABLET(100 Se ybold oral Tablet 00:00: 0 MG) BY - 00 MOUTH IN Externa THE l MORNING AND IN THE EVENING WITH MEALS Benzocaine- 2022-0 Yes [id number] Suck on 1 Anai Menthol 4-12 lozenge Seybold (Cepacol 00:00: every 2 - Sore 00 hours as Externa Throat) needed for l 15-3.6 MG sore mouth/throa throat t Lozenge Oxycodone 2022-0 Yes [id number] 30{tbl} Q.[id number] Take 30 Anai HCl 10 MG 4-12 [id number] tablets by Seybold oral Tablet 00:00: 3D mouth 3 - 00 times Externa daily as l needed Benzocaine- 2022-0 Yes [id number] Suck on 1 Anai Menthol 4-12 lozenge Seybold (Cepacol 00:00: every 2 - Sore 00 hours as Externa Throat) needed for l 15-3.6 MG sore mouth/throa throat t Lozenge Oxycodone 2022-0 Yes [id number] 30{tbl} Q.[id number] Take 30 Anai HCl 10 MG 4-12 [id number] tablets by Seybold oral Tablet 00:00: 3D mouth 3 - 00 times Externa daily as l needed Benzocaine- 2022-0 Yes [id number] Suck on 1 Anai Menthol 4-12 lozenge Seybold (Cepacol 00:00: every 2 - Sore 00 hours as Externa Throat) needed for l 15-3.6 MG sore mouth/throa throat t Lozenge Oxycodone 2022-0 Yes [id number] 30{tbl} Q.[id number] Take 30 Anai HCl 10 MG 4-12 [id number] tablets by Seybold oral Tablet 00:00: 3D mouth 3 - 00 times Externa daily as l needed Benzocaine- 2022-0 Yes [id number] Suck on 1 Anai Menthol 4-12 lozenge Seybold (Cepacol 00:00: every 2 - Sore 00 hours as Externa Throat) needed for l 15-3.6 MG sore mouth/throa throat t Lozenge Benzocaine- 2022-0 Yes [id number] Suck on 1 Anai Menthol 4-12 lozenge Seybold (Cepacol 00:00: every 2 - Sore 00 hours as Externa Throat) needed for l 15-3.6 MG sore mouth/throa throat t Lozenge Benzocaine- 3-0 2022- No [id number] Suck on 1 Anai Menthol 4-12 08-09 lozenge Seybold (Cepacol 00:00: 00:00 every 2 - Sore 00 :00 hours as Externa Throat) needed for l 15-3.6 MG sore mouth/throa throat t Lozenge Oxycodone 2022-0 2022- No [id number] 30{tbl} Q.[id number] Take 30 Anai HCl 10 MG 4-12 -06 [id number] tablets by Seybold oral Tablet 00:00: 00:00 3D mouth 3 - 00 :00 times Externa daily as l needed Tramadol 2022-0 Yes [id number] 50mg Q.25D Take 1 K elsey HCl 4-06 tablet (50 Seybold (ULTRAM) 50 00:00: mg total) - MG oral 00 by mouth Externa Tablet every 6 l hours as needed for pain Umeclidiniu 2022-0 Yes [id number] Inhale 1 Anai m [place] 4-05 inhalation Seyb old (Incruse 14:58: into the - Ellipta) 44 lungs Externa 62.5 daily l MCG/INH inhalation AEROSOL POWDER, BREATH ACTIVATED Lidocaine Yes Apply 1 Rakan sey % apply 05 applicatio Seybol d externally 14:58: n - Ointment 44 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 Pack methylPREDN 2022-0 Yes [id number] 1{dave} Take 1 dave Anai ISolone 4-05 by mouth Seybold (Medrol) 4 00:00: See Admin - MG oral 00 Instructio Computer Education Teacher a Tablet ns Use as l Therapy directed. Pack methylPREDN 2022-0 Yes [id number] 1{dave} Take 1 dave Anai ISolone 4-05 by mouth Seybold (Medrol) 4 00:00: See Admin - MG oral 00 Instructio Computer Education Teacher a Tablet ns Use as l Therapy directed. Pack methylPREDN 3-0 Yes [id number] 1{dave} Take 1 dave Anai ISolone 4-05 by mouth Seybold (Medrol) 4 00:00: See Admin - MG oral 00 Instructio Computer Education Teacher a Tablet ns Use as l Therapy directed. Pack methylPREDN 3-0 3- No [id number] 1{dave} Take 1 dave Anai ISolone 4-05 07-06 by mouth Seybold (Medrol) 4 00:00: 00:00 See Admin - MG oral 00 :00 Instructio Computer Education Teacher a Tablet ns Use as l Therapy directed. Pack Tramadol Yes [id number] 50mg QD Take 1 Ke lsey HCl 3-30 tablet (50 Seybold (ULTRAM) 50 00:00: mg total) - MG oral 00 by mouth Externa Tablet daily as l needed for pain Umeclidiniu Yes [id number] Inhale 1 Anai m [place] 3- inhalation Seyb old (Incruse 09:08: into the - Ellipta) 57 lungs Externa 62.5 daily l MCG/INH inhalation AEROSOL POWDER, BREATH ACTIVATED Lidocaine 5 Yes Apply 1 Rakan sey % apply 10-18 applicatio Seybol d externally 09:08: n - Ointment 57 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 l Roflumilast Yes 1{tbl} [...] mouth - 00 daily Externa l Roflumilast 2022-0 2022- No 1{tbl} Take 1 K elsey 500 MCG 3-16 -06 tablet by Seybol d oral Tablet 00:00: 00:00 mouth - 00 :00 daily Externa l glipiZIDE 0 Yes [id number] 10mg Take 1 Ke lsey 10 MG oral 3-13 tablet (10 Sey bold Tablet 00:00: mg total) - 00 by mouth 2 Externa times l daily glipiZIDE 0 Yes [id number] 10mg Take 1 Ke lsey 10 MG oral 3-13 tablet (10 Sey bold Tablet 00:00: mg total) - 00 by mouth 2 Externa times l daily glipiZIDE 0 Yes [id number] 10mg Take 1 Ke lsey 10 MG oral 3-13 tablet (10 Sey bold Tablet 00:00: mg total) - 00 by mouth 2 Externa times l daily glipiZIDE 0 Yes [id number] 10mg Take 1 Ke lsey 10 MG oral 3-13 tablet (10 Sey bold Tablet 00:00: mg total) - 00 by mouth 2 Externa times l daily glipiZIDE 2022-0 Yes [id number] 10mg Take 1 Ke lsey 10 MG oral 3-13 tablet (10 Sey bold Tablet 00:00: mg total) - 00 by mouth 2 Externa times l daily glipiZIDE 0 Yes [id number] 10mg Take 1 Ke lsey 10 MG oral 3-13 tablet (10 Sey bold Tablet 00:00: mg total) - 00 by mouth 2 Externa times l daily glipiZIDE 0 Yes [id number] 10mg Take 1 Ke lsey 10 MG oral 3-13 tablet (10 Sey bold Tablet 00:00: mg total) - 00 by mouth 2 Externa times l daily glipiZIDE 0 Yes [id number] 10mg Take 1 Ke lsey 10 MG oral 3-13 tablet (10 Sey bold Tablet 00:00: mg total) - 00 by mouth 2 Externa times l daily Semaglutide Yes [id number] .25mg Inject Anai (0.25 or 3-07 0.25 mg Seybold 0.5 00:00: into the - mg/dose) 2 00 skin once Exte rna mg/1.5 mL a week l SQ Solution Pen-Injecto r Umeclidiniu Yes [id number] Inhale 1 Anai m [place] 2-24 inhalation Seyb old (Incruse 10:49: into the - Ellipta) 11 lungs Externa 62.5 daily l MCG/INH inhalation AEROSOL POWDER, BREATH ACTIVATED Lidocaine 5 Yes Apply 1 Rakan sey % apply 09-21 applicatio Seybol d externally 10:49: n - Ointment 11 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 l Nystatin 2022- No [id number] Take 5 mL Anai (Nystatin) 09-21- (500,000 Seyb old [id number] 00:00: 05:59 units - UNIT/ML 00 :00 total) by Externa mouth/throa mouth 4 l t times Suspension daily for 7 days Amoxicillin Yes Anai -Pot 2-23 Seybold Clavulanate 00:00: - 875-125 MG 00 Externa oral Tablet l Carvedilol 2022-0 Yes [id number] TAKE 1 K elsey 25 MG oral 2-20 TABLET(25 Seyb old Tablet 00:00: MG) BY - 00 MOUTH IN Externa THE l MORNING AND IN THE EVENING WITH MEALS Carvedilol 2022-0 Yes [id number] TAKE 1 K elsey 25 MG oral 2-20 TABLET(25 Seyb old Tablet 00:00: MG) BY - 00 MOUTH IN Externa THE l MORNING AND IN THE EVENING WITH MEALS Carvedilol 2022-0 Yes [id number] TAKE 1 K elsey 25 MG oral 2-20 TABLET(25 Seyb old Tablet 00:00: MG) BY - 00 MOUTH IN Externa THE l MORNING AND IN THE EVENING WITH MEALS Carvedilol 2022-0 Yes [id number] TAKE 1 K elsey 25 MG oral 2-20 TABLET(25 Seyb old Tablet 00:00: MG) BY - 00 MOUTH IN Externa THE l MORNING AND IN THE EVENING WITH MEALS Carvedilol 2022-0 Yes [id number] TAKE 1 K elsey 25 MG oral 2-20 TABLET(25 Seyb old Tablet 00:00: MG) BY - 00 MOUTH IN Externa THE l MORNING AND IN THE EVENING WITH MEALS Carvedilol 2022-0 Yes [id number] TAKE 1 K elsey 25 MG oral 2-20 TABLET(25 Seyb old Tablet 00:00: MG) BY - 00 MOUTH IN Externa THE l MORNING AND IN THE EVENING WITH MEALS Carvedilol 0 3- No [id number] TAKE 1 Anai 25 MG oral 2-20 07-06 TABLET(25 Sey bold Tablet 00:00: 00:00 MG) BY - 00 :00 MOUTH IN Externa THE l MORNING AND IN THE EVENING WITH MEALS Levothyroxi 2022-0 Yes [id number] TAKE 1 Anai ne Sodium 2-13 TABLET(112 Seyb old 112 MCG 00:00: MCG) BY - oral Tablet 00 MOUTH Externa EVERY l MORNING ON AN EMPTY STOMACH Levothyroxi 2022-0 Yes [id number] TAKE 1 Anai ne Sodium 2-13 TABLET(112 Seyb old 112 MCG 00:00: MCG) BY - oral Tablet 00 MOUTH Externa EVERY l MORNING ON AN EMPTY STOMACH Levothyroxi Yes [id number] TAKE 1 Anai ne Sodium 2-13 TABLET(112 Seyb old 112 MCG 00:00: MCG) BY - oral Tablet 00 MOUTH Externa EVERY l MORNING ON AN EMPTY STOMACH Famotidine 0 2022- No 20mg Take 20 mg Anai (PEPCID) 20 2-10 02-10 by mouth 2 S eybold MG oral 14:15: 00:00 times - tablet 32 :00 daily Externa l Umeclidiniu Yes [id number] Inhale 1 Anai m [place] 2-10 inhalation Seyb old (Incruse 13:39: into the - Ellipta) 22 lungs Externa 62.5 daily l MCG/INH inhalation AEROSOL POWDER, BREATH ACTIVATED Lidocaine 5 Yes Apply 1 Rakan sey % apply 2-10 applicatio Seybol d externally 13:39: n - Ointment 22 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 l Semaglutide Yes [id number] .25mg Inject Anai (0.25 or 2-10 0.25 mg Seybold 0.5 00:00: into the - mg/dose) 2 00 skin once Exte rna mg/1.5 mL a week l SQ Solution Pen-Injecto r Semaglutide Yes [id number] .25mg Inject Anai (0.25 or 2-10 0.25 mg Seybold 0.5 00:00: into the - mg/dose) 2 00 skin once Exte rna mg/1.5 mL a week l SQ Solution Pen-Injecto r Fluocinonid Yes APPLY Kelse y e 0.05 % 2-09 TOPICALLY Seybol d apply 00:00: TO THE - externally 00 AFFECTED Exter na Cream AREA TWICE l DAILY Fluocinonid 0 Yes APPLY Kelse y e 0.05 % 2-09 TOPICALLY Seybol d apply 00:00: TO THE - externally 00 AFFECTED Exter na Cream AREA TWICE l DAILY Fluocinonid Yes APPLY Kelse y e 0.05 % 2-09 TOPICALLY Seybol d apply 00:00: TO THE - externally 00 AFFECTED Exter na Cream AREA TWICE l DAILY Fluocinonid Yes APPLY Kelse y e 0.05 % [...] Cream AREA TWICE l DAILY Fluocinonid 2022-0 2023- No APPLY Samia ey e 0.05 % -04 04- TOPICALLY Seybo ld apply 00:00: 00:00 TO THE - externally 00 :00 AFFECTED Exter na Cream AREA TWICE l DAILY Pantoprazol 2022-0 2023- No Kelse y e Sodium 40 09-06 02-10 Seybold MG oral 00:00: 00:00 - [...] Externa l Famotidine 2023-0 Yes 20mg Take 1 [...] 20mg Take 1 Kelse y (PEPCID) 20 08-24 tablet (20 Se ybold MG oral 00:00: mg total) - tablet 00 by mouth Externa daily l Famotidine 2022-0 2022- No 20mg Take 1 Samia ey (PEPCID) 20 08-24 07-06 tablet (20 S eybold MG oral 00:00: 00:00 mg total) - tablet 00 :00 by mouth Externa daily l Advair 2022-0 Yes Anai Diskus 1-22 Seybold [...] inhalation l AEROSOL POWDER, BREATH ACTIVATED Advair 0 2022- No Anai Diskus 1-22 07-06 Seybold 250-50 00:00: 00:00 - MCG/ACT 00 :00 Externa inhalation l AEROSOL POWDER, BREATH ACTIVATED Citalopram 2022-0 Yes [id number] TAKE 1 K elsey Hydrobromid 1-17 TABLET(10 Sey bold e 10 MG 00:00: MG) BY - oral Tablet 00 MOUTH Externa DAILY l Citalopram 2022-0 Yes [id number] TAKE 1 K elsey Hydrobromid 1-17 TABLET(10 Sey bold e 10 MG 00:00: MG) BY - oral Tablet 00 MOUTH Externa DAILY l Citalopram 0 Yes [id number] TAKE 1 K elsey Hydrobromid 1-17 TABLET(10 Sey bold e 10 MG 00:00: MG) BY - oral Tablet 00 MOUTH Externa DAILY l Citalopram 0 Yes [id number] TAKE 1 K elsey Hydrobromid 1-17 TABLET(10 Sey bold e 10 MG 00:00: MG) BY - oral Tablet 00 MOUTH Externa DAILY l Cetirizine 2021-07 Yes [id number] 5mg Take 1 K elsey HCl 5 MG 2-20 tablet (5 Seybol d oral Tablet 00:00: mg total) - 00 by mouth Externa daily l FLUTICASONE 2021-07 Yes [id number] 50ug Use 1 K elsey PROPIONATE, 2-20 spray (50 Sey bold NASAL, 50 00:00: mcg total) - MCG/ACT 00 in each Externa nasal nostril l Suspension daily Cetirizine 2021-07 Yes [id number] 5mg Take 1 K elsey HCl 5 MG 2-20 tablet (5 Seybol d oral Tablet 00:00: mg total) - 00 by mouth Externa daily l FLUTICASONE 2021-07 Yes [id number] 50ug Use 1 K elsey PROPIONATE, 2-20 spray (50 Sey bold NASAL, 50 00:00: mcg total) - MCG/ACT 00 in each Externa nasal nostril l Suspension daily Cetirizine 2021-07 Yes [id number] 5mg Take 1 K elsey HCl 5 MG 2-20 tablet (5 Seybol d oral Tablet 00:00: mg total) - 00 by mouth Externa daily l FLUTICASONE 2021-07 Yes [id number] 50ug Use 1 K elsey PROPIONATE, 2-20 spray (50 Sey bold NASAL, 50 00:00: mcg total) - MCG/ACT 00 in each Externa nasal nostril l Suspension daily Cetirizine 2021-07 Yes [id number] 5mg Take 1 K elsey HCl 5 MG 2-20 tablet (5 Seybol d oral Tablet 00:00: mg total) - 00 by mouth Externa daily l FLUTICASONE 2021-07 Yes [id number] 50ug Use 1 K elsey PROPIONATE, 2-20 spray (50 Sey bold NASAL, 50 00:00: mcg total) - MCG/ACT 00 in each Externa nasal nostril l Suspension daily Cetirizine 2021-07 Yes [id number] 5mg Take 1 K elsey HCl 5 MG 2-20 tablet (5 Seybol d oral Tablet 00:00: mg total) - 00 by mouth Externa daily l FLUTICASONE 2021-07 Yes [id number] 50ug Use 1 K elsey PROPIONATE, 2-20 spray (50 Sey bold NASAL, 50 00:00: mcg total) - MCG/ACT 00 in each Externa nasal nostril l Suspension daily Cetirizine 2021-07 Yes [id number] 5mg Take 1 K elsey HCl 5 MG 2-20 tablet (5 Seybol d oral Tablet 00:00: mg total) - 00 by mouth Externa daily l FLUTICASONE 2021-07 Yes [id number] 50ug Use 1 K elsey PROPIONATE, 2-20 spray (50 Sey bold NASAL, 50 00:00: mcg total) - MCG/ACT 00 in each Externa nasal nostril l Suspension daily Cetirizine 2021-07 Yes [id number] 5mg Take 1 K elsey HCl 5 MG 2-20 tablet (5 Seybol d oral Tablet 00:00: mg total) - 00 by mouth Externa daily l FLUTICASONE 2021-07 Yes [id number] 50ug Use 1 K elsey PROPIONATE, 2-20 spray (50 Sey bold NASAL, 50 00:00: mcg total) - MCG/ACT 00 in each Externa nasal nostril l Suspension daily Cetirizine 2021-07 Yes [id number] 5mg Take 1 K elsey HCl 5 MG 2-20 tablet (5 Seybol d oral Tablet 00:00: mg total) - 00 by mouth Externa daily l FLUTICASONE 2021-07 Yes [id number] 50ug Use 1 K elsey PROPIONATE, 2-20 spray (50 Sey bold NASAL, 50 00:00: mcg total) - MCG/ACT 00 in each Externa nasal nostril l Suspension daily FLUTICASONE 2021-07- No [id number] 50ug Use 1 Anai PROPIONATE, 2-20 07-06 spray (50 Se ybold NASAL, 50 00:00: 00:00 mcg total) - MCG/ACT 00 :00 in each Externa nasal nostril l Suspension daily FLUTICASONE 2021-07 Yes [id number] 50ug Use 1 K elsey PROPIONATE, 1-29 spray (50 Sey bold NASAL, 50 00:00: mcg total) - MCG/ACT 00 in each Externa nasal nostril l Suspension daily FLUTICASONE 2021-07- No [id number] 50ug Use 1 Anai PROPIONATE, 1-29 12-20 spray (50 Se ybold NASAL, 50 00:00: 00:00 mcg total) - MCG/ACT 00 :00 in each Externa nasal nostril l Suspension daily Levothyroxi 2021-07 Yes [id number] TAKE 1 Anai ne Sodium 1-07 TABLET(112 Seyb old 112 MCG 00:00: MCG) BY - oral Tablet 00 MOUTH Externa EVERY l MORNING ON AN EMPTY STOMACH Levothyroxi 2021-07 Yes [id number] TAKE 1 Anai ne Sodium 1-07 TABLET(112 Seyb old 112 MCG 00:00: MCG) BY - oral Tablet 00 MOUTH Externa EVERY l MORNING ON AN EMPTY STOMACH Levothyroxi 2021-07 Yes [id number] TAKE 1 Anai ne Sodium 1-07 TABLET(112 Seyb old 112 MCG 00:00: MCG) BY - oral Tablet 00 MOUTH Externa EVERY l MORNING ON AN EMPTY STOMACH Spironolact 2021-07 Yes [id number] TAKE 1 Anai one 25 MG 0-19 TABLET(25 Seybo ld oral Tablet 00:00: MG) BY - 00 MOUTH Externa DAILY l Spironolact 2021-07 Yes [id number] TAKE 1 Anai one 25 MG 0-19 TABLET(25 Seybo ld oral Tablet 00:00: MG) BY - 00 MOUTH Externa DAILY l Spironolact 2021-07 Yes [id number] TAKE 1 Anai one 25 MG 0-19 TABLET(25 Seybo ld oral Tablet 00:00: MG) BY - 00 MOUTH Externa DAILY l Spironolact 2021-07 Yes [id number] TAKE 1 Anai one 25 MG 0-19 TABLET(25 Seybo ld oral Tablet 00:00: MG) BY - 00 MOUTH Externa DAILY l Spironolact 2021-07 Yes [id number] TAKE 1 Anai one 25 MG 0-19 TABLET(25 Seybo ld oral Tablet 00:00: MG) BY - 00 MOUTH Externa DAILY l Spironolact 2021-07 Yes [id number] TAKE 1 Anai one 25 MG 0-19 TABLET(25 Seybo ld oral Tablet 00:00: MG) BY - 00 MOUTH Externa DAILY l Umeclidiniu Yes [id number] Inhale 1 Anai quiros [place] - inhalation Seyb old (Incruse 08:57: into the - Ellipta) 43 lungs Externa 62.5 daily l MCG/INH inhalation AEROSOL POWDER, BREATH ACTIVATED Lidocaine 5 Yes Apply 1 Rakan sey % apply 04-26 applicatio Seybol d externally 08:57: n - Ointment 43 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 l Umeclidiniu Yes [id number] Inhale 1 Anai quiros [place] 04-26 inhalation Seyb old (Incruse 08:57: into the - Ellipta) 43 lungs Externa 62.5 daily l MCG/INH inhalation AEROSOL POWDER, BREATH ACTIVATED Lidocaine Yes Apply 1 Rakan sey % apply 04-26 applicatio Seybol d externally 08:57: n - Ointment 43 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 l Cream Citalopram Yes [id number] 10mg Take 1 K elsey Hydrobromid 9-12 tablet (10 Se ybold e (CeleXA) 00:00: mg total) - 10 MG oral 00 by mouth Exter na Tablet daily l Atorvastati Yes [id number] 10mg Take 1 Anai n Calcium 9-12 tablet (10 Seyb old (Lipitor) 00:00: mg total) - 10 MG oral 00 by mouth Exter na Tablet daily l Citalopram 2021-0 Yes [id number] 10mg Take 1 K elsey Hydrobromid 9-12 tablet (10 Se ybold e (CeleXA) 00:00: mg total) - 10 MG oral 00 by mouth Exter na Tablet daily l Atorvastati 2021-0 Yes [id number] 10mg Take 1 Anai n Calcium 9-12 tablet (10 Seyb old (Lipitor) 00:00: mg total) - 10 MG oral 00 by mouth Exter na Tablet daily l Citalopram 2021-0 Yes [id number] 10mg Take 1 K elsey Hydrobromid 9-12 tablet (10 Se ybold e (CeleXA) 00:00: mg total) - 10 MG oral 00 by mouth Exter na Tablet daily l Atorvastati 0 Yes [id number] 10mg Take 1 Anai n Calcium 9-12 tablet (10 Seyb old (Lipitor) 00:00: mg total) - 10 MG oral 00 by mouth Exter na Tablet daily l Atorvastati 2021-0 Yes [id number] 10mg Take 1 Anai n Calcium 9-12 tablet (10 Seyb old (Lipitor) 00:00: mg total) - 10 MG oral 00 by mouth Exter na Tablet daily l Atorvastati 2021-0 Yes [id number] 10mg Take 1 Anai n Calcium 9-12 tablet (10 Seyb old (Lipitor) 00:00: mg total) - 10 MG oral 00 by mouth Exter na Tablet daily l Atorvastati 2021-0 Yes [id number] 10mg Take 1 Anai n Calcium 9-12 tablet (10 Seyb old (Lipitor) 00:00: mg total) - 10 MG oral 00 by mouth Exter na Tablet daily l Atorvastati 2021-0 Yes [id number] 10mg Take 1 Anai n Calcium 9-12 tablet (10 Seyb old (Lipitor) 00:00: mg total) - 10 MG oral 00 by mouth Exter na Tablet daily l Atorvastati 2021-0 Yes [id number] 10mg Take 1 Anai n Calcium 9-12 tablet (10 Seyb old (Lipitor) 00:00: mg total) - 10 MG oral 00 by mouth Exter na Tablet daily l Atorvastati 0 Yes [id number] 10mg Take 1 Anai n Calcium 9-12 tablet (10 Seyb old (Lipitor) 00:00: mg total) - 10 MG oral 00 by mouth Exter na Tablet daily l Atorvastati 2021-0 Yes [id number] 10mg Take 1 Ania n Calcium 9-12 tablet (10 Seyb old (Lipitor) 00:00: mg total) - 10 MG oral 00 by mouth Exter na Tablet daily l Atorvastati 0 Yes [id number] 10mg Take 1 Anai n Calcium 9-12 tablet (10 Seyb old (Lipitor) 00:00: mg total) - 10 MG oral 00 by mouth Exter na Tablet daily l Atorvastati 0 Yes [id number] 10mg Take 1 Anai n Calcium 9-12 tablet (10 Seyb old (Lipitor) 00:00: mg total) - 10 MG oral 00 by mouth Exter na Tablet daily l Atorvastati 0 Yes [id number] 10mg Take 1 Anai n Calcium 9-12 tablet (10 Seyb old (Lipitor) 00:00: mg total) - 10 MG oral 00 by mouth Exter na Tablet daily l Atorvastati 0 Yes [id number] 10mg Take 1 Anai n Calcium 9-12 tablet (10 Seyb old (Lipitor) 00:00: mg total) - 10 MG oral 00 by mouth Exter na Tablet daily l Carvedilol 0 Yes [id number] 25mg Take 1 K elsey 25 MG oral 9-02 tablet (25 Sey bold Tablet 00:00: mg total) - 00 by mouth Externa in the l morning and 1 tablet (25 mg total) in the evening. Take with meals. Carvedilol Yes [id number] 25mg Take 1 K elsey 25 MG oral 9-02 tablet (25 Sey bold Tablet 00:00: mg total) - 00 by mouth Externa in the l morning and 1 tablet (25 mg total) in the evening. Take with meals. Carvedilol Yes [id number] 25mg Take 1 K elsey 25 MG oral 9-02 tablet (25 Sey bold Tablet 00:00: mg total) - 00 by mouth Externa in the l morning and 1 tablet (25 mg total) in the evening. Take with meals. Carvedilol 0 Yes [id number] 25mg Take 1 K elsey 25 MG [...] Externa Delayed l Response FLUTICASONE 2021-0 Yes [id number] 50ug Use 1 K elsey PROPIONATE, 8-10 spray (50 Sey bold NASAL, 50 00:00: mcg total) - MCG/ACT 00 in each Externa nasal nostril l Suspension daily glipiZIDE 0 Yes [id number] 10mg Take 1 Ke lsey 10 MG oral 8-10 tablet (10 Sey bold Tablet 00:00: mg total) - 00 by mouth 2 Externa times l daily Omeprazole 2021-0 Yes [id number] 40mg Take 1 Anai 40 MG oral 8-10 capsule Seybol d Delayed 00:00: (40 mg - Release 00 total) by Externa Capsule mouth l daily glipiZIDE 2021-0 Yes [id number] 10mg Take 1 Ke lsey 10 MG oral 8-10 tablet (10 Sey bold Tablet 00:00: mg total) - 00 by mouth 2 Externa times l daily Omeprazole 2021-0 Yes [id number] 40mg Take 1 Anai 40 MG oral 8-10 capsule Seybol d Delayed 00:00: (40 mg - Release 00 total) by Externa Capsule mouth l daily glipiZIDE 2022-0 Yes [id number] 10mg Take 1 Ke lsey 10 MG oral 8-10 tablet (10 Sey bold Tablet 00:00: mg total) - 00 by mouth 2 Externa times l daily Omeprazole 2021-0 Yes [id number] 40mg Take 1 Anai 40 MG oral 8-10 capsule Seybol d Delayed 00:00: (40 mg - Release 00 total) by Externa Capsule mouth l daily glipiZIDE 2021-0 Yes [id number] 10mg Take 1 Ke lsey 10 MG oral 8-10 tablet (10 Sey bold Tablet 00:00: mg total) - 00 by mouth 2 Externa times l daily glipiZIDE 0 Yes [id number] 10mg Take 1 Ke lsey 10 MG oral 8-10 tablet (10 Sey bold Tablet 00:00: mg total) - 00 by mouth 2 Externa times l daily Omeprazole 2021-0 3- No [id number] 40mg Take 1 Anai 40 MG oral 8-10 02-10 capsule Seybo ld Delayed 00:00: 00:00 (40 mg - Release 00 :00 total) by Externa Capsule mouth l daily FLUTICASONE 2021-0 2022- No [id number] 50ug Use 1 Anai PROPIONATE, 8-10 11-29 spray (50 Se ybold NASAL, 50 00:00: 00:00 mcg total) - MCG/ACT 00 :00 in each Externa nasal nostril l Suspension daily Levothyroxi 2021-0 Yes [id number] 112ug Take 1 Anai ne Sodium 7-29 tablet Seybold 112 MCG 00:00: (112 mcg - oral Tablet 00 total) by Ext lalitha mouth l every morning ON AN EMPTY STOMACH Metformin 2021-0 Yes [id number] 1000mg Take 1 Anai HCl 1000 MG 7-25 tablet Seybol d oral Tablet 00:00: (1,000 mg - 00 total) by Externa mouth in l the morning and 1 tablet (1,000 mg total) in the evening. Take with meals. Metformin 2021-0 Yes [id number] 1000mg Take 1 Anai HCl 1000 MG 7-25 tablet Seybol d oral Tablet 00:00: (1,000 mg - 00 total) by Externa mouth in l the morning and 1 tablet (1,000 mg total) in the evening. Take with meals. Metformin 2022-0 Yes [id number] 1000mg Take 1 Anai HCl 1000 MG 7-25 tablet Seybol d oral Tablet 00:00: (1,000 mg - 00 total) by Externa mouth in l the morning and 1 tablet (1,000 mg total) in the evening. Take with meals. Metformin 2022-0 Yes [id number] 1000mg Take 1 Anai HCl 1000 MG 7-25 tablet Seybol d oral Tablet 00:00: (1,000 mg - 00 total) by Externa mouth in l the morning and 1 tablet (1,000 mg total) in the evening. Take with meals. Metformin 2022-0 Yes [id number] 1000mg Take 1 Anai HCl 1000 MG 7-25 tablet Seybol d oral Tablet 00:00: (1,000 mg - 00 total) by Externa mouth in l the morning and 1 tablet (1,000 mg total) in the evening. Take with meals. Metformin 2021-0 Yes [id number] 1000mg Take 1 Anai HCl 1000 MG 7-25 tablet Seybol d oral Tablet 00:00: (1,000 mg - 00 total) by Externa mouth in l the morning and 1 tablet (1,000 mg total) in the evening. Take with meals. Metformin 2-0 Yes [id number] 1000mg Take 1 Anai HCl 1000 MG 7-25 tablet Seybol d oral Tablet 00:00: (1,000 mg - 00 total) by Externa mouth in l the morning and 1 tablet (1,000 mg total) in the evening. Take with meals. Dapaglifloz 2022-0 Yes [id number] 1{each} Take 1 Anai in - each by Seybold Propanediol 00:00: mouth - (Farxiga) 5 00 daily Externa MG oral l Tablet Dapaglifloz 2022-0 Yes [id number] 1{each} Take 1 Anai in - each by Seybold Propanediol 00:00: mouth - (Farxiga) 5 00 daily Externa MG oral l Tablet Dapaglifloz 2022-0 Yes [id number] 1{each} Take 1 Anai in - each by Seybold Propanediol 00:00: mouth - (Farxiga) 5 00 daily Externa MG oral l Tablet Dapaglifloz 2022-0 3- No [id number] 1{each} Take 1 Anai in 01-26-10 each by Seybold Propanediol 00:00: 00:00 mouth - (Farxiga) 5 00 :00 daily Externa MG oral l Tablet Furosemide Yes [id number] 40mg Take 1 Anai (Lasix) 40 6-29 tablet (40 Sey bold MG oral 00:00: mg total) - Tablet 00 by mouth Externa daily l Furosemide Yes [id number] 40mg Take 1 Anai (Lasix) 40 6-29 tablet (40 Sey bold MG oral 00:00: mg total) - Tablet 00 by mouth Externa daily l Furosemide Yes [id number] 40mg Take 1 Anai (Lasix) 40 6-29 tablet (40 Sey bold MG oral 00:00: mg total) - Tablet 00 by mouth Externa daily l Furosemide Yes [id number] 40mg Take 1 Anai (Lasix) 40 6-29 tablet (40 Sey bold MG oral 00:00: mg total) - Tablet 00 by mouth Externa daily l Furosemide Yes [id number] 40mg Take 1 Anai (Lasix) 40 6-29 tablet (40 Sey bold MG oral 00:00: mg total) - Tablet 00 by mouth Externa daily l Furosemide Yes [id number] 40mg Take 1 Anai (Lasix) 40 6-29 tablet (40 Sey bold MG oral 00:00: mg total) - Tablet 00 by mouth Externa daily l Furosemide Yes [id number] 40mg Take 1 Anai (Lasix) 40 6-29 tablet (40 Sey bold MG oral 00:00: mg total) - Tablet 00 by mouth Externa daily l Furosemide 0 2022- No [id number] 40mg Take 1 Anai (Lasix) 40 6-29 [...] as l needed FOR PAIN Santyl 250 2021-0 Yes APPLY TO Rakan [...] 00 Externa Ointment l Santyl 250 2021-0 2022- No APPLY TO Richard hammond UNIT/GM 5-04 07-06 WOUND Seybold apply 00:00: 00:00 EVERY DAY - externally 00 :00 Externa Ointment l Mupirocin 0 Yes [id number] Apply 1 Anai (BACTROBAN) 11-24 applicatio Se ybold 2 % apply 00:00: n externally 00 topically Ointment 2 times daily levoFLOXaci 2021-0 Yes [id number] 500mg Take 1 Anai n 11-24 tablet Seybold (Levaquin) 00:00: (500 mg 500 MG oral 00 total) by Tablet mouth daily Minocycline 2021-0 Yes [id number] 100mg Take 1 Anai HCl 100 MG 11-24 capsule Seybol d oral 00:00: (100 mg Capsule 00 total) by mouth in the morning and 1 capsule (100 mg total) in the evening. Mupirocin 2021-0 Yes [id number] Apply 1 Anai (BACTROBAN) 11-24 applicatio Se ybold 2 % apply 00:00: n - externally 00 topically Exte rna Ointment 2 times l daily Minocycline 2021-0 Yes [id number] 100mg Take 1 Anai HCl 100 MG 11-24 capsule Seybol d oral 00:00: (100 mg - Capsule 00 total) by Externa mouth in l the morning and 1 capsule (100 mg total) in the evening. Mupirocin 2021-0 Yes [id number] Apply 1 Anai (BACTROBAN) 11-24 applicatio Se ybold 2 % apply 00:00: n - externally 00 topically Exte rna Ointment 2 times l daily Minocycline 2-0 Yes [id number] 100mg Take 1 Anai HCl 100 MG 11-24 capsule Seybol d oral 00:00: (100 mg - Capsule 00 total) by Externa mouth in l the morning and 1 capsule (100 mg total) in the evening. Mupirocin 2-0 Yes [id number] Apply 1 Anai (BACTROBAN) 11-24 applicatio Se ybold 2 % apply 00:00: n - externally 00 topically Exte rna Ointment 2 times l daily Minocycline 2021-0 Yes [id number] 100mg Take 1 Anai HCl 100 MG 11-24 capsule Seybol d oral 00:00: (100 mg - Capsule 00 total) by Externa mouth in l the morning and 1 capsule (100 mg total) in the evening. Mupirocin 2021-0 Yes [id number] Apply 1 Anai (BACTROBAN) 11-24 applicatio Se ybold 2 % apply 00:00: n - externally 00 topically Exte rna Ointment 2 times l daily Minocycline 2021-0 Yes [id number] 100mg Take 1 Anai HCl 100 MG 11-24 capsule Seybol d oral 00:00: (100 mg - Capsule 00 total) by Externa mouth in l the morning and 1 capsule (100 mg total) in the evening. Mupirocin 2-0 Yes [id number] Apply 1 Anai (BACTROBAN) 11-24 applicatio Se ybold 2 % apply 00:00: n - externally 00 topically Exte rna Ointment 2 times l daily Minocycline 2-0 Yes [id number] 100mg Take 1 Anai HCl 100 MG 11-24 capsule Seybol d oral 00:00: (100 mg - Capsule 00 total) by Externa mouth in l the morning and 1 capsule (100 mg total) in the evening. Mupirocin 2-0 Yes [id number] Apply 1 Anai (BACTROBAN) 11-24 applicatio Se ybold 2 % apply 00:00: n - externally 00 topically Exte rna Ointment 2 times l daily Minocycline 2-0 Yes [id number] 100mg Take 1 Ania HCl 100 MG 11-2401 capsule Seybol d oral 00:00: (100 mg - Capsule 00 total) by Externa mouth in l the morning and 1 capsule (100 mg total) in the evening. Mupirocin 2-0 Yes [id number] Apply 1 Anai (BACTROBAN) 11-24 applicatio Se ybold 2 % apply 00:00: n - externally 00 topically Exte rna Ointment 2 times l daily Minocycline 2022-0 Yes [id number] 100mg Take 1 Anai HCl 100 MG 11-2401 capsule Seybol d oral 00:00: (100 mg - Capsule 00 total) by Externa mouth in l the morning and 1 capsule (100 mg total) in the evening. Mupirocin 2-0 Yes [id number] Apply 1 Anai (BACTROBAN) 11-24 applicatio Se ybold 2 % apply 00:00: n - externally 00 topically Exte rna Ointment 2 times l daily Minocycline 2-0 Yes [id number] 100mg Take 1 Anai HCl 100 MG 11-2401 capsule Seybol d oral 00:00: (100 mg - Capsule 00 total) by Externa mouth in l the morning and 1 capsule (100 mg total) in the evening. Mupirocin 2-0 Yes [id number] Apply 1 Anai (BACTROBAN) 11-24 applicatio Se ybold 2 % apply 00:00: n - externally 00 topically Exte rna Ointment 2 times l daily Minocycline 2022-0 Yes [id number] 100mg Take 1 Anai HCl 100 MG 11-2401 capsule Seybol d oral 00:00: (100 mg - Capsule 00 total) by Externa mouth in l the morning and 1 capsule (100 mg total) in the evening. Mupirocin 2022-0 Yes [id number] Apply 1 Anai (BACTROBAN) 11-24 applicatio Se ybold 2 % apply 00:00: n - externally 00 topically Exte rna Ointment 2 times l daily Minocycline 2022-0 Yes [id number] 100mg Take 1 Anai HCl 100 MG 11-2401 capsule Seybol d oral 00:00: (100 mg - Capsule 00 total) by Externa mouth in l the morning and 1 capsule (100 mg total) in the evening. Mupirocin 2022- No [id number] Apply 1 Anai (BACTROBAN) 11-24 9101 applicatio S eybold 2 % apply 00:00: 00:00 n - externally 00 :00 topically Exte rna Ointment 2 times l daily Minocycline 2022- No [id number] 100mg Take 1 Anai HCl 100 MG 11-24 91 capsule Seybo ld oral 00:00: 00:00 (100 mg - Capsule 00 :00 total) by Externa mouth in l the morning and 1 capsule (100 mg total) in the evening. linaGLIPtin Yes [id number] 1{tbl} Take 1 Anai (Tradjenta) 4-26 tablet by Sey bold 5 MG oral 00:00: mouth Tablet 00 daily Empaglifloz Yes [id number] 1{each} Take 1 Anai in 11-21 each by Seybold (Jardiance) 00:00: mouth 10 MG oral 00 daily Tablet linaGLIPtin Yes [id number] 1{tbl} Take 1 Anai (Tradjenta) 4-26 tablet by Sey bold 5 MG oral 00:00: mouth - Tablet 00 daily Externa l linaGLIPtin Yes [id number] 1{tbl} Take 1 Anai (Tradjenta) 4-26 tablet by Sey bold 5 MG oral 00:00: mouth - Tablet 00 daily Externa l linaGLIPtin Yes [id number] 1{tbl} Take 1 Anai (Tradjenta) 4-26 tablet by Sey bold 5 MG oral 00:00: mouth - Tablet 00 daily Externa l linaGLIPtin 2022- No [id number] 1{tbl} Take 1 Anai (Tradjenta) - 02-10 tablet by Se ybold 5 MG oral 00:00: 00:00 mouth - Tablet 00 :00 daily Externa l Umeclidiniu Yes [id number] Inhale 1 Anai m [place] 4-21 inhalation Seyb old (Incruse 08:13: into the Ellipta) 06 lungs 62.5 daily MCG/INH inhalation AEROSOL POWDER, BREATH ACTIVATED Lidocaine 5 Yes Apply 1 Rakan sey % apply -21 applicatio Seybol d externally 08:13: n Ointment 06 topically as needed Umeclidiniu 0 Yes [id number] Inhale 1 Anai m [place] 4-21 inhalation Seyb old (Incruse 08:13: into the Ellipta) 06 lungs 62.5 daily MCG/INH inhalation AEROSOL POWDER, BREATH ACTIVATED Lidocaine 5 Yes Apply 1 Rakan sey % apply 4-21 applicatio Seybol d externally 08:13: n Ointment 06 topically as needed Empaglifloz Yes [id number] 1{tbl} Take 1 Anai in 4-21 tablet by Seybold (Jardiance) 00:00: mouth 25 MG oral 00 daily Tablet Cetirizine 0 Yes [id number] 5mg Take 1 K elsey HCl 5 MG 4-21 tablet (5 Seybol d oral Tablet 00:00: mg total) 00 by mouth daily Cetirizine 0 Yes [id number] 5mg Take 1 K elsey HCl 5 MG 4-21 tablet (5 Seybol d oral Tablet 00:00: mg total) 00 by mouth daily Cetirizine 0 Yes [id number] 5mg Take 1 K elsey HCl 5 MG 4-21 tablet (5 Seybol d oral Tablet 00:00: mg total) - 00 by mouth Externa daily l Cetirizine 0 Yes [id number] 5mg Take 1 K elsey HCl 5 MG 4-21 tablet (5 Seybol d oral Tablet 00:00: mg total) - 00 by mouth Externa daily l Cetirizine 2021-0 2021- No [id number] 5mg Take 1 Anai HCl 5 MG 4-21 12-20 tablet (5 Seybo ld oral Tablet 00:00: 00:00 mg total) - 00 :00 by mouth Externa daily l Cephalexin 0 Yes TAKE 1 Kelse y 500 MG oral 4-18 CAPSULE BY Se ybold Capsule 00:00: MOUTH 00 TWICE DAILY FOR 10 DAYS- TAKE ALL Cephalexin Yes TAKE 1 Kelse y 500 MG oral 4-18 CAPSULE BY Se puente Capsule 00:00: MOUTH 00 TWICE DAILY FOR 10 DAYS- TAKE ALL Acetaminoph 2022-0 Yes 1{tbl} Q.25D Take 1 K elsey en-Codeine 4-11 tablet by Agueda old #3 300-30 00:00: mouth MG oral 00 every 6 Tablet hours as needed FOR PAIN Acetaminoph 2022-0 Yes 1{tbl} Q.25D Take 1 K elsey en-Codeine 4-11 tablet by old #3 300-30 00:00: mouth MG oral 00 every 6 Tablet hours as needed FOR PAIN Acetaminoph 2022-0 Yes 1{tbl} Q.25D Take 1 K elsey en-Codeine 4-11 tablet by old #3 300-30 00:00: mouth - MG oral 00 every 6 Externa Tablet hours as l needed FOR PAIN Acetaminoph 2022-0 Yes 1{tbl} Q.25D Take 1 K elsey en-Codeine 4-11 tablet by old #3 300-30 00:00: mouth - MG oral 00 every 6 Externa Tablet hours as l needed FOR PAIN Acetaminoph 2022-0 Yes 1{tbl} Q.25D Take 1 K elsey en-Codeine 4-11 tablet by old #3 300-30 00:00: mouth - MG oral 00 every 6 Externa Tablet hours as l needed FOR PAIN Acetaminoph 2022-0 Yes 1{tbl} Q.25D Take 1 K elsey en-Codeine 4-11 tablet by old #3 300-30 00:00: mouth - MG oral 00 every 6 Externa Tablet hours as l needed FOR PAIN Acetaminoph 2022-0 Yes 1{tbl} Q.25D Take 1 K elsey en-Codeine 4-11 tablet by old #3 300-30 00:00: mouth - MG oral 00 every 6 Externa Tablet hours as l needed FOR PAIN Acetaminoph 2022-0 Yes 1{tbl} Q.25D Take 1 K elsey en-Codeine 4-11 tablet by old #3 300-30 00:00: mouth - MG oral 00 every 6 Externa Tablet hours as l needed FOR PAIN Acetaminoph 2022-0 2023- No 1{tbl} Q.25D Take 1 Anai en-Codeine 4-11 04-06 tablet by Sey bold #3 300-30 00:00: 00:00 mouth - MG oral 00 :00 every 6 Externa Tablet hours as l needed FOR PAIN Umeclidiniu Yes [id number] Inhale 1 Anai m [place] 4-05 inhalation Seyb old (Incruse 09:30: into the Ellipta) 53 lungs 62.5 daily MCG/INH inhalation AEROSOL POWDER, BREATH ACTIVATED Spironolact Yes [id number] 25mg Take 1 Anai one 25 MG 4-05 tablet (25 Seyb old oral Tablet 00:00: mg total) 00 by mouth daily Furosemide Yes 40mg Take 1 Kelse y (Lasix) 40 4-05 tablet (40 Sey bold MG oral 00:00: mg total) Tablet 00 by mouth daily Spironolact Yes [id number] 25mg Take 1 Anai one 25 MG 4-05 tablet (25 Seyb old oral Tablet 00:00: mg total) 00 by mouth daily Furosemide Yes 40mg Take 1 Kelse y (Lasix) 40 4-05 tablet (40 Sey bold MG oral 00:00: mg total) Tablet 00 by mouth daily Spironolact Yes [id number] 25mg Take 1 Anai one 25 MG 4-05 tablet (25 Seyb old oral Tablet 00:00: mg total) - 00 by mouth Externa daily l Spironolact Yes [id number] 25mg Take 1 Anai one 25 MG 4-05 tablet (25 Seyb old oral Tablet 00:00: mg total) 00 by mouth daily Furosemide Yes [id number] 40mg Take 1 K elsey (Lasix) 40 [...] 00 AFFECTED AREA EVERY 12 HOURS Clotrimazol 2-0 2022- No APPLY Samia ey e 1 % apply 3-29 07-06 TOPICALLY Se ybold externally 00:00: 00:00 TO - Cream 00 :00 AFFECTED Externa AREA EVERY l 12 HOURS Spironolact 2021- No [id number] 12.5mg Take 0.5 Anai one 25 MG 2-28 04-05 tablets Seybol d oral Tablet 00:00: 00:00 (12.5 mg 00 :00 total) by mouth daily Carvedilol 2021- No 25mg Take 25 mg Anai 25 MG oral 2-18 02-18 by mouth 2 Se ybold Tablet 14:30: 00:00 times 25 :00 daily (with meals) Umeclidiniu Yes Inhale 1 Ke lsey m [place] 2-18 inhalation Seyb old (Incruse 14:18: into the Ellipta) 48 lungs 62.5 daily MCG/INH inhalation AEROSOL POWDER, BREATH ACTIVATED Carvedilol Yes [id number] 25mg Take 1 K elsey 25 MG oral 2-18 tablet (25 Sey bold Tablet 00:00: mg total) 00 by mouth 2 times daily (with meals) Carvedilol Yes [id number] 25mg Take 1 K elsey 25 MG oral 2-18 tablet (25 Sey bold Tablet 00:00: mg total) 00 by mouth 2 times daily (with meals) Carvedilol 0 Yes [id number] 25mg Take 1 K elsey 25 MG oral 2-18 tablet (25 Sey bold Tablet 00:00: mg total) 00 by mouth 2 times daily (with meals) Empaglifloz 0 Yes [id number] 1{tbl} Take 1 Anai in 2-18 tablet by Seybold (Jardiance) 00:00: mouth 10 MG oral 00 daily Tablet Carvedilol Yes [id number] 25mg Take 1 K elsey 25 MG oral 2-18 tablet (25 Sey bold Tablet 00:00: mg total) 00 by mouth 2 times daily (with meals) Empaglifloz 2021-0 Yes [id number] 1{tbl} Take 1 Anai in 2-18 tablet by Seybold (Jardiance) 00:00: mouth 10 MG oral 00 daily Tablet Empaglifloz 2021-0 2021- No [id number] 1{tbl} Take 1 Anai in 2-18 04-21 tablet by Seybold (Jardiance) 00:00: 00:00 mouth 10 MG oral 00 :00 daily Tablet Levothyroxi 2021-0 Yes [id number] 112ug Take 112 Anai ne Sodium 2-15 mcg by Seybold 112 MCG 00:00: mouth oral Tablet 00 every morning ON AN EMPTY STOMACH Metformin 2021-0 Yes [id number] 1000mg Take 1,000 Anai HCl 1000 MG 2-15 mg by Seybold oral Tablet 00:00: mouth 2 00 times daily (with meals) Levothyroxi 2021-0 Yes [id number] 112ug Take 112 Anai ne Sodium 2-15 mcg by Seybold 112 MCG 00:00: mouth oral Tablet 00 every morning ON AN EMPTY STOMACH Metformin 2021-0 Yes [id number] 1000mg Take 1,000 Anai HCl 1000 MG [...] times daily (with meals) Levothyroxi 2021-0 Yes [id number] 112ug Take 112 Anai ne Sodium 2-15 mcg by Seybold 112 MCG 00:00: mouth oral Tablet 00 every morning ON AN EMPTY STOMACH Metformin 2021-0 Yes [id number] 1000mg Take 1,000 Anai HCl 1000 MG 2-15 mg by Seybold oral Tablet 00:00: mouth 2 00 times daily (with meals) Xarelto 20 2021-0 Yes [id number] TAKE 1 K elsey MG oral 1-21 TABLET BY Seybold Tablet 00:00: MOUTH 00 EVERY DAY WITH EVENING MEAL Xarelto 20 2021-0 Yes [id number] TAKE 1 K elsey MG oral 1-21 TABLET BY Seybold Tablet 00:00: MOUTH 00 EVERY DAY WITH EVENING MEAL Xarelto 20 2021-0 Yes [id number] TAKE 1 K elsey MG oral 1-21 TABLET BY Seybold Tablet 00:00: MOUTH - 00 EVERY DAY Externa WITH l EVENING MEAL Xarelto Yes [id number] TAKE 1 K elsey MG oral 1-21 TABLET BY Seybold Tablet 00:00: MOUTH - 00 EVERY DAY Externa WITH l EVENING MEAL Xarelto 0 Yes [id number] TAKE 1 K elsey MG oral 1-21 TABLET BY Seybold Tablet 00:00: MOUTH - 00 EVERY DAY Externa WITH l EVENING MEAL Xarelto Yes TAKE 1 Kelse y MG oral 1-21 TABLET BY Seybold Tablet 00:00: MOUTH 00 EVERY DAY WITH EVENING MEAL Xarelto Yes [id number] TAKE 1 K elsey MG oral 1-21 TABLET BY Seybold Tablet 00:00: MOUTH - 00 EVERY DAY Externa WITH l EVENING MEAL Xarelto Yes [id number] TAKE 1 K elsey MG oral 1-21 TABLET BY Seybold Tablet 00:00: MOUTH - 00 EVERY DAY Externa WITH l EVENING MEAL Xarelto Yes [id number] TAKE 1 K elsey MG oral 1-21 TABLET BY Seybold Tablet 00:00: MOUTH - 00 EVERY DAY Externa WITH l EVENING MEAL Xarelto Yes [id number] TAKE 1 Anai MG oral 1-21 [id number] TABLET BY Seyb old Tablet 00:00: MOUTH - 00 EVERY DAY Externa WITH l EVENING MEAL Xarelto Yes [id number] TAKE 1 Anai MG oral 1-21 [id number] TABLET BY Seyb old Tablet 00:00: MOUTH - 00 EVERY DAY Externa WITH l EVENING MEAL Xarelto 0 Yes [id number] TAKE 1 Anai MG oral 1-21 [id number] TABLET BY Seyb old Tablet 00:00: MOUTH - 00 EVERY DAY Externa WITH l EVENING MEAL Xarelto 0 Yes [id number] TAKE 1 Anai MG oral 1-21 [id number] TABLET BY Seyb old Tablet 00:00: MOUTH - 00 EVERY DAY Externa WITH l EVENING MEAL Xarelto 20 0 Yes [id number] TAKE 1 K elsey MG oral 1-21 TABLET BY Seybold Tablet 00:00: MOUTH 00 EVERY DAY WITH EVENING MEAL Xarelto 20 2021-0 2022- No [id number] TAKE 1 Anai MG oral 1-21 07-06 [id number] TABLET BY Sey bold Tablet 00:00: 00:00 MOUTH - 00 :00 EVERY DAY Externa WITH l EVENING MEAL glipiZIDE 2021-0 Yes [id number] 10mg Take 10 mg Anai 10 MG oral 1-19 by mouth 2 Sey bold Tablet 00:00: times 00 daily glipiZIDE 2021-0 Yes [id number] 10mg Take 10 mg Anai 10 MG oral 1-19 by mouth 2 Sey bold Tablet 00:00: times 00 daily glipiZIDE 2021-0 Yes 10mg Take 10 mg Ke lsey 10 MG oral 1-19 by mouth 2 Sey bold Tablet 00:00: times 00 daily glipiZIDE 2021-0 Yes [id number] 10mg Take 10 mg Anai 10 MG oral 1-19 by mouth 2 Sey bold Tablet 00:00: times 00 daily Spironolact 2021-0 Yes 25mg Take 25 mg Anai one 25 MG 1-08 by mouth Seybol d oral Tablet 00:00: daily 00 Paroxetine 2021-0 Yes [id number] 20mg Take 20 mg Anai HCl 20 MG 1-05 by mouth Seybol d oral Tablet 00:00: every 00 morning Paroxetine 2021-0 Yes [id number] 20mg Take 20 mg Anai HCl 20 MG 1-05 by mouth Seybol d oral Tablet 00:00: every 00 morning Paroxetine 2021-0 Yes 20mg Take 20 mg K elsey HCl 20 MG 1-05 by mouth Seybol d oral Tablet 00:00: every 00 morning Paroxetine 2-0 Yes [id number] 20mg Take 20 mg Anai HCl 20 MG 1-05 by mouth Seybol d oral Tablet 00:00: every 00 morning Jardiance 2020-1 2- No 1{tbl} Take 1 Rakan sey 10 MG oral 2-29 02-18 tablet by Sey bold Tablet 00:00: 00:00 mouth 00 :00 daily Omeprazole 2020-1 Yes [id number] 20mg Take 20 mg Anai 20 MG oral 2-24 by mouth Seybo ld Delayed 00:00: daily Release 00 Capsule Omeprazole 2020-1 Yes [id number] 20mg Take 20 mg Anai 20 MG oral 2-24 by mouth Seybo ld Delayed 00:00: daily Release 00 Capsule Omeprazole 2020-07 Yes 20mg Take 20 mg K elsey 20 MG oral 2-24 by mouth Seybo ld Delayed 00:00: daily Release 00 Capsule Omeprazole 2020-07 Yes [id number] 20mg Take 20 mg Anai 20 MG oral 2-24 by mouth Seybo ld Delayed 00:00: daily Release 00 Capsule Immunizations Ordered Immunization Filled Date Status Comments Sour ce Name Immunization Name Influenza Virus 2022-04-26 Completed Anai Se ybold [...] - External Influenza Virus 2022-04-26 Completed Anai ybold Vaccine, 00:00:00 - External Quadrivalent, High Dose, Age 65 And Up Tdap- (Boostrix, 2022-04-26 Completed Anai S eybold Adacel) 00:00:00 - External Influenza Virus 2022-04-26 Completed Anai ybold Vaccine, 00:00:00 - External Quadrivalent, High [...] - External Influenza Virus 2022-04-26 Completed Anai ybold Vaccine, 00:00:00 - External Quadrivalent, High [...] 00:00:00 - External Influenza Virus 2021-02-26 Completed Ania ybold Vaccine, High Dose, 00:00:00 - Ext [...] Anai Se ybold Vaccine, High Dose, 00:00:00 - Ext ernal Age 65 And Up Shingles IM 2021-02-26 Completed Anai Seybol d (Shingrix) 00:00:00 - External Influenza Virus 2021-02-26 Completed Anai Se ybold Vaccine, High Dose, 00:00:00 - Ext [...] - External Influenza Virus 2021-02-26 Completed Anai slaeemold Vaccine, High Dose, 00:00:00 - Ext ernal [...] High Dose, 00:00:00 Age 65 And Up Influenza Virus 2021-02-26 Completed Anai ybold Vaccine, High Dose, 00:00:00 - Ext ernal Age 65 And Up Shingles IM 2021-02-26 Completed Anai Seybol d (Shingrix) 00:00:00 - External Shingles IM 2021-02-26 Completed Anai Seybol d (Shingrix) 00:00:00 Influenza Virus 2021-02-26 Completed Anai saleemold Vaccine, High Dose, 00:00:00 - Ext ernal Age 65 And Up Shingles IM 2021-02-26 Completed Anai Seybol d (Shingrix) 00:00:00 - External Influenza Virus 2021-02-26 Completed Anai puente Vaccine, High Dose, 00:00:00 - Ext ernal Age 65 And Up Shingles IM 2021-02-26 Completed Anai Romeool d (Shingrix) 00:00:00 - External Hep A/ Hep B Combo 2020-08-01 Completed Anai Crowderybold 00:00:00 - External Hep A/ Hep B Combo 2020-08-01 Completed Anai Seybold 00:00:00 - External Hep A/ Hep B Combo 2020-08-01 Completed Anai Seybold 00:00:00 - External Hep A/ Hep B Combo 2020-08-01 Completed Anai Crowderybold 00:00:00 - External Hep A/ Hep B Combo 2020-08-01 Completed Anai Seybold 00:00:00 - External Hep A/ Hep B Combo 2020-08-01 Completed Anai Crowderybold 00:00:00 - External Hep A/ Hep B Combo 2020-08-01 Completed Anai Seybold 00:00:00 - External Hep A/ Hep B Combo 2020-08-01 Completed Anai Seybold 00:00:00 - External Hep A/ Hep B Combo 2020-08-01 Completed Anai Seybold 00:00:00 - External Hep A/ Hep B Combo 2020-08-01 Completed Anai Seybold 00:00:00 - External Hep A/ Hep B Combo 2020-08-01 Completed Anai Crowderybold 00:00:00 - External Hep A/ Hep B Combo 2020-08-01 Completed Anai Seybold 00:00:00 - External Hep A/ Hep B Combo 2020-08-01 Completed Anai Seybold 00:00:00 - External Hep A/ Hep B Combo 2020-08-01 Completed Anai Seybold 00:00:00 - External Shingles IM 2020-05-03 Completed Anai Romeool d (Shingrix) 00:00:00 - External Shingles IM 2020-05-03 Completed Anai Romeool d (Shingrix) 00:00:00 - [...] A/ Hep B Combo 2020-01-30 Completed Anai Crowderybbartolome 00:00:00 - External Pneumococcal 2020-01-30 Completed Ania Romeoo ld Vaccine, Conjugate 00:00:00 - Exte [...] A/ Hep B Combo 2020-01-30 Completed Anai Crowderybbartolome 00:00:00 - External Pneumococcal 2020-01-30 Completed Anai Romeoo ld Vaccine, Conjugate 00:00:00 - Exte rnal 13 Hep A/ Hep B Combo 2020-01-30 Completed Anai Crowderybbartolome 00:00:00 - External Pneumococcal 2020-01-30 Completed Anai Romeoo ld Vaccine, Conjugate 00:00:00 - Exte rnal 13 Hep A/ Hep B Combo 2020-01-30 Completed Anai Nieto 00:00:00 - External Pneumococcal 2014-02-28 Completed Anai Crowderybo ld Vaccine, 00:00:00 - External Polysaccharide Pneumococcal 2014-02-28 Completed Anai Seybo ld Vaccine, 00:00:00 - External Polysaccharide Pneumococcal Unknown Completed Druze Conjugate [facility] Vital Signs Vital Name Observation Time Observation Value Comments Source BMI 2023-04-10 20:31:00 29.86 kg/m2 Anai pang - External Oxygen saturation in 2023-04-10 20:31:00 97 /min Anai Nieto - Arterial blood by External Pulse oximetry Systolic blood 2023-04-10 20:31:00 126 mm[Hg] Anai Nieto - pressure External Diastolic blood 2023-04-10 20:31:00 68 mm[Hg] Elda Nieto - pressure External Heart rate 2023-04-10 20:31:00 75 /min Anai pang - External Body temperature 2023-04-10 20:31:00 37.06 Tiki Samia ey Seybold - External Respiratory rate 2023-04-10 20:31:00 20 /min Samia ey Seybold - External Body height 2023-04-10 20:31:00 167.6 cm Anai Trivedi eybold - External Body weight 2023-04-10 20:31:00 83.915 kg Anai S eybold - External Systolic blood 2023-03-06 21:11:00 130 mm[Hg] Anai Seybold - pressure External Diastolic blood 2023-03-06 21:11:00 89 mm[Hg] Rakanse y Seybold - pressure External Heart rate 2023-03-06 21:11:00 101 /min Anai Trivedi eybold - External Body temperature 2023-03-06 21:11:00 37.33 Tiki Samia ey Seybold - External Respiratory rate 2023-03-06 21:11:00 15 /min Samia ey Seybold - External Body height 2023-03-06 21:11:00 167.6 cm Anai Trivedi eybold - External Body weight 2023-03-06 21:11:00 93.441 kg Anai Trivedi eybold - External BMI 2023-03-06 21:11:00 33.25 kg/m2 Anai Trivedi eybold - External Oxygen saturation in 2023-03-06 21:11:00 100 /min Anai Nieto - Arterial blood by External Pulse oximetry Systolic blood 2023-01-11 16:33:00 99 mm[Hg] Anai Seybold - pressure External Diastolic blood 2023-01-11 16:33:00 59 mm[Hg] Elda y Seybold - pressure External Heart rate 2023-01-11 16:33:00 66 /min Anai S eybold - External Body temperature 2023-01-11 16:33:00 36.28 Tiki Samia ey Seybold - External Respiratory rate 2023-01-11 16:33:00 15 /min Samia farley Seybold - External Body height 2023-01-11 16:33:00 167.6 cm Anai S eybold - External Body weight 2023-01-11 16:33:00 93.441 kg Anai S eybold - External BMI 2023-01-11 16:33:00 33.25 kg/m2 Anai S eybold - External Systolic blood 2022-12-26 13:08:00 110 mm[Hg] Anai Seybold - pressure External Diastolic blood 2022-12-26 13:08:00 64 mm[Hg] Kelse y Seybold - pressure External Heart rate 2022-12-26 13:08:00 60 /min Anai S eybold - External Body temperature 2022-12-26 13:08:00 35.28 Tiki Samia ey Seybold - External Respiratory rate 2022-12-26 13:08:00 14 /min Samia ey Seybold - External Body height 2022-12-26 13:08:00 167.6 cm Anai Trivedi eybold - External Body weight 2022-12-26 13:08:00 93.895 kg Anai Trivedi eybold - External BMI 2022-12-26 13:08:00 33.41 kg/m2 Anai Trivedi eybold - External Systolic blood 2022-10-31 19:55:00 123 mm[Hg] Anai Seybold - pressure External Diastolic blood 2022-10-31 19:55:00 65 mm[Hg] Rakanse y Seybold - pressure External Heart rate 2022-10-31 19:55:00 41 /min Anai Trivedi eybold - External Body height 2022-10-31 19:55:00 167.6 cm Anai Trivedi eybold - External Body weight 2022-10-31 19:55:00 92.08 kg Anai Trivedi eybold - External BMI 2022-10-31 19:55:00 32.77 kg/m2 Anai Trivedi eybold - External Body height 2022-10-18 14:07:00 167.6 cm Anai Trivedi eybold - External Body weight 2022-10-18 14:07:00 92.08 kg Anai S eybold - External BMI 2022-10-18 14:07:00 32.77 kg/m2 Anai Trivedi eybold - External Systolic blood 2022-09-21 16:48:00 116 mm[Hg] Anai Seybold - pressure External Diastolic blood 2022-09-21 16:48:00 65 mm[Hg] Rakanse y Seybold - pressure [...] External Diastolic blood 2022-07-17 13:57:00 76 mm[Hg] Kelse y Seybold - pressure External Heart rate 2022-07-17 13:57:00 84 /min Anai S eybold - External Body temperature 2022-07-17 13:57:00 36.28 Tiki Samia ey Seybold - External Respiratory rate 2022-07-17 13:57:00 14 /min Samia ey Seybold - External Body height 2022-07-17 13:57:00 167.6 cm Anai S eybold - External Body weight 2022-07-17 13:57:00 95.255 kg Anai S eybold - External BMI 2022-07-17 13:57:00 33.89 kg/m2 Anai S eybold - External Oxygen saturation in 2022-07-17 13:57:00 99 /min Anai Seybold - Arterial blood by External Pulse oximetry Body weight 2022-04-26 13:55:00 95.255 kg Anai [...] 167.6 cm Anai S eybold - External Systolic blood 2021-11-24 18:18:00 121 mm[Hg] Anai [...] Body temperature 2021-09-15 19:47:00 36.44 Tiki Samia Nieto Respiratory rate 2021-09-15 19:47:00 15 /min Samia ey Seybold Body height 2021-09-15 19:47:00 167.6 cm Anai farleyboshonda Body weight 2021-09-15 19:47:00 91.627 kg Anai S martineboshonda BMI 2021-09-15 19:47:00 32.60 kg/m2 Anai S bo Systolic blood 2023-02-20 13:00:31 128 mm[Hg] [facility] pressure Diastolic blood 2023-02-20 13:00:31 71 mm[Hg] [facility] pressure Heart rate 2023-02-20 13:00:31 71 /min [facility] Body temperature 2023-02-20 13:00:31 36.39 Tiki [facility] Respiratory rate 2023-02-20 13:00:31 20 /min [facility] Oxygen saturation in 2023-02-20 13:00:31 97 /min [facility] Arterial blood by Pulse oximetry Body weight 2023-02-17 00:34:00 85.639 kg [facility] BMI 2023-02-17 00:34:00 30.47 kg/m2 [facility] Body height 2023-02-16 15:02:00 167.6 cm [facility] Procedures Procedure Date / Time Performing Clinician Source Performed POC GLUCOSE 2023-02-20 12:59:00 Girish Harrington CBC WITH PLATELET AND 2023-02-20 10:04:00 Girish Harrington [facility] DIFFERENTIAL [facility] BASIC METABOLIC PANEL 2023-02-20 10:04:00 Girish Harrington [facility] HEPATIC FUNCTION PANEL 2023-02-20 10:04:00 Jyoti Velázquez [facility] PROTHROMBIN TIME WITH INR 2023-02-20 10:04:00 Jyoti Velázquez [facility] MAGNESIUM LEVEL 2023-02-20 10:04:00 Girish Harrington ESTIMATED GFR 2023-02-20 10:04:00 Girish Harrington SMEAR REVIEW 2023-02-20 10:04:00 Girish Harrington [facility] [place] POC GLUCOSE 2023-02-20 00:59:00 Girish Harrington [facility] [place] POC GLUCOSE 2023-02-19 21:30:00 Girish Harrington [facility] [place] POC GLUCOSE 2023-02-19 20:50:00 Girish Harrington [facility] [place] POC GLUCOSE 2023-02-19 16:17:00 Girish Harrington [facility] [place] POC GLUCOSE 2023-02-19 12:24:00 Girish Harrington [facility] [place] CBC WITH PLATELET AND 2023-02-19 09:39:00 Girish Harrington [facility] DIFFERENTIAL [facility] BASIC METABOLIC PANEL 2023-02-19 09:39:00 Girish Harrington [facility] HEPATIC FUNCTION PANEL 2023-02-19 09:39:00 Melania [facility] PROTHROMBIN TIME WITH INR 2023-02-19 09:39:00 Velázquez, [facility] ESTIMATED GFR 2023-02-19 09:39:00 Girish Harrington [facility] [place] SMEAR REVIEW 2023-02-19 09:39:00 Girish Harrington [facility] [place] MAGNESIUM LEVEL 2023-02-19 09:39:00 Girish Harrington [facility] [place] POC GLUCOSE 2023-02-19 02:18:00 Girish Harrington [facility] [place] POC GLUCOSE 2023-02-18 22:50:00 Girish Harrington [facility] [place] ECG 12-LEAD 2023-02-18 17:07:00 Girish Harrington [facility] [place] POC GLUCOSE 2023-02-18 16:34:00 Girish Harrington [facility] [place] BASIC METABOLIC PANEL 2023-02-18 15:47:00 Girish Harrington [facility] [place] MAGNESIUM LEVEL 2023-02-18 15:47:00 Girish Harrington [facility] [place] ESTIMATED GFR 2023-02-18 15:47:00 Girish Harrington [facility] [place] POC GLUCOSE 2023-02-18 12:54:00 Girish Harrington [facility] [place] HEMOGLOBIN A1C 2023-02-18 10:07:00 Girish Harrington [facility] [place] FERRITIN LEVEL 2023-02-18 10:07:00 Girish Harrington [facility] [place] FOLATE LEVEL 2023-02-18 10:07:00 Girish Harrington [facility] [place] TOTAL IRON BINDING CAPACITY 2023-02-18 10:07:00 Kraig [facility] VITAMIN B12 LEVEL 2023-02-18 10:07:00 [facility] P[facility]SE 2023-02-18 01:15:00 Girish Harrington [facility] [place] POC GLUCOSE 2023-02-17 21:21:00 Girish Harrington [facility] [place] ECG 12-LEAD 2023-02-17 16:49:08 Girish Harrington [facility] [place] POC GLUCOSE 2023-02-17 16:34:00 Girish Harrington [facility] [place] CBC WITH PLATELET AND 2023-02-17 09:15:00 Coral Montaño [facility] DIFFERENTIAL H COMPREHENSIVE METABOLIC 2023-02-17 09:15:00 Yaneth Montañobob [facility] PANEL H MAGNESIUM LEVEL 2023-02-17 09:15:00 Coral Montaño [facility] THYROID STIMULATING HORMONE 2023-02-17 09:15:[address] H HEMOGLOBIN A1C 2023-02-17 09:15:00 Coral owens [facility] ESTIMATED GFR 2023-02-17 09:15:00 [facility] 2023-02-17 09:15:00 Coral Montaño [facility] H CT ABDOMEN PELVIS W CONTRAST 2023-02-16 17:44:26 [facility] 2023-02-16 17:16:00 Hiram [facility] CBC WITH PLATELET AND 2023-02-16 15:52:[address] [facility] DIFFERENTIAL [facility] COMPREHENSIVE METABOLIC 2023-02-16 15:52:00 [facility] PANEL [facility] LIPASE LEVEL 2023-02-16 15:52:00 Hiram [facility] URINALYSIS SCREEN AND 2023-02-16 15:52:[address] [facility] MICROSCOPY, WITH REFLEX TO Ruben CULTURE ESTIMATED GFR 2023-02-16 15:52:00 Hiram [facility] SMEAR REVIEW 2023-02-16 15:52:00 Gandhi [facility] POC GLUCOSE 2023-02-13 17:53:[facility] 2023-02-13 13:43:00 [facility] CBC WITH PLATELET AND 2023-02-13 10:16:00 Weston SpannNara [facility] DIFFERENTIAL BASIC METABOLIC PANEL 2023-02-13 10:16:00 [place] [facility] FUN[facility] PAN[facility] 2023-02-13 10:16:00 [facility]Nara [facility] MAGNESIUM LEVEL 2023-02-13 10:16:00 [facility] PHOSPHORUS LEVEL 2023-02-13 10:16:00 [facility]Nara [facility] PROTHROMBIN TIME WITH INR 2023-02-13 10:16:00 Jyoti Velázquez [facility] ESTIMATED GFR 2023-02-13 10:16:00 [facility] SMEAR REVIEW 2023-02-13 10:16:00 [facility] POC GLUCOSE 2023-02-13 01:26:00 [facility] CBC WITH PLATELET AND 2023-02-12 09:06:00 [facility] DIFFERENTIAL BASIC METABOLIC PANEL 2023-02-12 09:06:00 [facility] HEPATIC FUNCTION PANEL 2023-02-12 09:06:00 [facility] MAGNESIUM LEVEL 2023-02-12 09:06:00 [facility] PHOSPHORUS LEVEL 2023-02-12 09:06:00 [facility] ALPHA FETOPROTEIN 2023-02-12 09:06:00 Velázquez, [facility] ALPHA-1 ANTITRYPSIN 2023-02-12 09:06:00 Velázquez, [facility] PHENOTYPE ANTINUCLEAR ANTIBODIES (AGUSTIN) 2023-02-12 09:06:00 Velázquez, [facility] WITH REFLEX TO TITER AND PATTERN, IMMUNOFLUORESCENCE ANTI MITOCHONDRIA SCREEN 2023-02-12 09:06:00 Velázquez, [facility] ACUTE VIRAL HEPATITIS PANEL 2023-02-12 09:06:00 Velázquez, [facility] (HAV, HBV, HCV) IMMUNOGLOBULIN G 2023-02-12 09:06:00 Velázquez, [facility] LIVER-KIDNEY MICROSOME AB, 2023-02-12 09:06:00 Velázquez, [facility] IGG PROTHROMBIN TIME WITH INR 2023-02-12 09:06:00 Velázquez, [facility] ESTIMATED GFR 2023-02-12 09:06:00 [facility] SMEAR REVIEW 2023-02-12 09:06:00 [facility] MRI ABDOMEN W WO CONTRAST 2023-02-12 04:03:00 Velázquez, [facility] POC GLUCOSE 2023-02-12 02:12:00 [facility] US ABDOMINAL LIMITED 2023-02-11 17:45:00 [facility] ECG 12-LEAD 2023-02-11 15:43:20 Sun, [facility] FIBRINOGEN 2023-02-11 13:47:[address] D[address] [facility] Jaren TROPONIN T 2023-02-11 08:30:00 Sun, [facility] CBC WITH PLATELET AND 2023-02-11 08:30:00 Sun, [facility] DIFFERENTIAL BASIC METABOLIC PANEL 2023-02-11 08:30:00 Sun, [facility] HEPATIC FUNCTION PANEL 2023-02-11 08:30:00 Sun, [facility] MAGNESIUM LEVEL 2023-02-11 08:30:00 Sun, [facility] PHOSPHORUS LEVEL 2023-02-11 08:30:00 Sun, [facility] ESTIMATED GFR 2023-02-11 08:30:00 Sun, [facility] SMEAR REVIEW 2023-02-11 08:30:00 [place], [facility] POC GLUCOSE 2023-02-11 04:23:00 [place], [facility] LACTIC ACID LEVEL, SEPSIS - 2023-02-11 04:20:00 Sun, [facility] NOW AND REPEAT 2X EVERY 3 HOURS TROPONIN T 2023-02-11 04:20:00 Sun, [facility] POTASSIUM LEVEL 2023-02-11 01:06:00 Chapin Peraza [facility] AST (SGOT) 2023-02-11 01:06:00 Chapin Peraza [facility] TROPONIN T 2023-02-11 01:06:00 Chapin Peraza [facility] CREATINE KINASE, TOTAL (CPK) 2023-02-11 01:06:00 Chapin Peraza [facility] CT ABDOMEN PELVIS WO 2023-02-11 00:27:03 Chapin Peraza [facility] CONTRAST URINE CULTURE 2023-02-11 00:08:00 Chapin Peraza [facility] POC GLUCOSE 2023-02-11 00:07:00 [facility] WITH PLATELET AND 2023-02-10 23:51:00 Chapin Peraza [facility] DIFFERENTIAL PROTHROMBIN TIME WITH INR 2023-02-10 23:51:00 Chapin Peraza [facility] PARTIAL THROMBOPLASTIN TIME 2023-02-10 23:51:00 Chapin Peraza [facility] ([facility]TT[facility] COMPREHENSIVE METABOLIC 2023-02-10 23:51:00 [facility] LACTIC ACID LEVEL, SEPSIS - 2023-02-10 23:51:00 Daphne [facility] NOW AND REPEAT 2X EVERY 3 HOURS LIPASE LEVEL 2023-02-10 23:51:00 [facility] TROPONIN T 2023-02-10 23:51:00 Daphne [facility] NT-PROBNP 2023-02-10 23:51:00 [facility] VENOUS BLOOD GAS 2023-02-10 23:51:[address] [facility] BETA HYDROXYBUTYRATE 2023-02-10 23:51:00 Chapin Peraza [facility] CREATINE KINASE, TOTAL (CPK) 2023-02-10 23:51:00 Chapin Peraza [facility] ESTIMATED GFR 2023-02-10 23:51:00 [facility] SMEAR REVIEW 2023-02-10 23:51:00 [facility] URINALYSIS SCREEN AND 2023-02-10 23:35:00 Chapin Peraza [facility] MICROSCOPY, WITH REFLEX TO CULTURE ECG ED PRELIMINARY 2023-02-10 23:00:55 Chapin Peraza [facility] INTERPRETATION ECG 12-LEAD 2023-02-10 22:17:40 [facility] POC GLUCOSE 2023-02-03 17:42:00 Girish Harrington [facility] [place] POC GLUCOSE 2023-02-03 13:37:00 Girish Harrington [facility] [place] CBC WITH PLATELET AND 2023-02-03 10:40:00 Girish Harrington [facility] DIFFERENTIAL [facility] BASIC METABOLIC PANEL 2023-02-03 10:40:00 Girish Harrington [facility] [place] MAGNESIUM LEVEL 2023-02-03 10:40:00 Girish Harrington [facility] [place] ESTIMATED GFR 2023-02-03 10:40:00 Girish Harrington [facility] [place] SMEAR REVIEW 2023-02-03 10:40:00 Girish Harrington [facility] [place] POC GLUCOSE 2023-02-03 01:45:00 Girish Harrington [facility] [place] POC GLUCOSE 2023-02-02 22:37:00 Girish Harrington [facility] [place] POC GLUCOSE 2023-02-02 16:20:00 Girish Harrington [facility] [place] POC GLUCOSE 2023-02-02 13:03:00 Girish Harrington [facility] [place] CBC WITH PLATELET AND 2023-02-02 10:08:00 Girish Harrington [facility] DIFFERENTIAL [facility] BASIC METABOLIC PANEL 2023-02-02 10:08:00 Girish Harrington [facility] MAGNESIUM LEVEL 2023-02-02 10:08:00 Girish Harrington [facility] [place] FERRITIN LEVEL 2023-02-02 10:08:00 Girish Harrington [facility] [place] FOLATE LEVEL 2023-02-02 10:08:00 Girish Harrington [facility] [place] TOTAL IRON BINDING CAPACITY 2023-02-02 10:08:00 Girish Harrington [facility] VITAMIN B12 LEVEL 2023-02-02 10:08:00 Girish Harrington [facility] [place] ESTIMATED GFR 2023-02-02 10:08:00 Girish Harrington [facility] [place] SMEAR REVIEW 2023-02-02 10:08:00 Girish Harrington [facility] [place] POC GLUCOSE 2023-02-02 02:26:00 Girish Harrington [facility] [place] POC GLUCOSE 2023-02-01 22:55:00 Girish Harrington [facility] [place] URINE CULTURE 2023-02-01 17:39:00 Girish Harrington [facility] [place] URINALYSIS SCREEN AND 2023-02-01 16:50:00 Girish Harrington [facility] MICROSCOPY, WITH REFLEX TO [place] CULTURE POC GLUCOSE 2023-02-01 16:31:00 Girish Harrington [facility] [place] US CHEST 2023-02-01 12:00:56 Girish Harrington [facility] [place] LACTIC ACID LEVEL, SEPSIS - 2023-02-01 10:40:00 [facility] NOW AND REPEAT 2X EVERY 3 Ruben HOURS CBC WITH PLATELET AND 2023-02-01 10:40:00 Girish Harrington [facility] DIFFERENTIAL [facility] BASIC METABOLIC PANEL 2023-02-01 10:40:00 Girish Harrington [facility] [place] HEMOGLOBIN A1C 2023-02-01 10:40:00 Girish Harrington [facility]ital [place] MAGNESIUM LEVEL 2023-02-01 10:40:00 Girish Harrington [facility] [place] ESTIMATED GFR 2023-02-01 10:40:00 Girish Harrington [facility] [place] SMEAR REVIEW 2023-02-01 10:40:00 Girish Harrington [facility] [place] POC GLUCOSE 2023-02-01 07:07:00 Girish Harrington [facility] [place] URINE CULTURE 2023-02-01 04:40:00 [facility] Druze [facility] LACTIC ACID LEVEL, SEPSIS - 2023-02-01 04:03:00 [facility] NOW AND REPEAT 2X EVERY 3 Ruben HOURS BLOOD CULTURE, AEROBIC & 2023-02-01 04:02:00 [facility] ANAEROBIC [facility] URINALYSIS SCREEN AND 2023-02-01 03:33:[address] [facility] MICROSCOPY, WITH REFLEX TO [facility] CULTURE CT ABDOMEN PELVIS W CONTRAST 2023-02-01 02:40:10 [facility] CBC WITH PLATELET AND 2023-02-01 00:51:[address] [facility] DIFFERENTIAL [facility] LACTIC ACID LEVEL, SEPSIS - 2023-02-01 00:51:00 [facility] NOW AND REPEAT 2X EVERY 3 Ruben HOURS COMPREHENSIVE METABOLIC 2023-02-01 00:51:00 [facility] PANEL [facility] PHOSPHORUS LEVEL 2023-02-01 00:51:00 [facility]ka [facility] MAGNESIUM LEVEL 2023-02-01 00:51:00 Katiuska [facility] VENOUS BLOOD GAS 2023-02-01 00:51:00 Katiuska Gandhi [facility] Ruben ESTIMATED GFR 2023-02-01 00:51:00 Katiuska Gandhi [facility] SMEAR REVIEW 2023-02-01 00:51:00 Katiuska Gandhi [facility] ECG 12-LEAD 2023-01-31 23:57:17 Girish Harrington [facility] [place] Plan of Care Planned Activity Planned Date Details Comments Source Future Scheduled 2023-04-06 COVID-19 VACCINE (#1) [facility] 01:11:20 [code = COVID-19 VACCINE Hos pital (#1)] Future Scheduled 2023-04-06 SHINGLES VACCINES (1 of Druze Test 01:11:20 2) [code = SHINGLES Hospital VACCINES (1 of 2)] Future Scheduled 2023-04-06 INFLUENZA VACCINE (#1) M ethodist Test 01:11:20 [code = INFLUENZA VACCINE Ho spital (#1)] Future Scheduled 2023-03-29 Influenza Vaccine (#1) [facility] 00:[facility]00 [code = Influenza Vaccine Me dical Center (#1)] Future Scheduled 2022-07-[address] [facility] Test 00:00:00 (12+) [code = DEPRESSION Med ical Center SCREENING (12+)] Future Scheduled 2022-07-29 FALLS RISK SCREENING [facility] Test 00:00:00 [code = FALLS RISK Medical C enter SCREENING] Future Scheduled 2012 PNEUMOCOCCAL 65+ YRS (1 - [facility] Test 00:00:00 PCV) [code = PNEUMOCOCCAL Me dical Center 65+ YRS (1 - PCV)] Future Scheduled 1997 SHINGLES VACCINES ([address] [facility] Test 00:00:00 2) [code = SHINGLES Medical Center VACCINES (1 of 2)] Future Scheduled 1966 DTAP/TDAP/TD VACCINES ([address] [facility] Test 00:00:00 - Tdap) [code = Medical Cent er DTAP/TDAP/TD VACCINES (1 - Tdap)] Future Scheduled 1965 HEPATITIS C [facility]CRE[facility]ING [facility] 00:00:00 [code = HEPATITIS C Medical Center SCREENING] Future Scheduled [address] [facility] Test 00:00:00 Counseling and Screening Med ical Center (12+) [code = Tobacco Cessation Counseling and Screening (12+)] Future Scheduled 1947 COVID-19 VACCINE (#1) [facility] 00:00:00 [code = COVID-19 VACCINE Med ical Center (#1)] Future Appointment 2023-05-14 Alonso Fernández MD, [facility] 15:55:[address]; [address], [place] [address] Future Appointment 2023-05-14 Alonso Fernández MD, [facility] 15:55:[address]; [address], [place] [address] Procedure 2023-05-14 CARDIAC ELECTROPHYSIOLOGY [facility] 15:55:00 STUDY, WITH ABLATION Medical Center Encounters Start End Encounter Admission Attending Care Care Encounter Source Date/Time Date/Time Type Type Clinicians Facility Department ID 2023 Outpatient ARACELIS SINCLAIR [facility] Surgery [id number] [facility] 16:02:13 ALONSO FERNÁNDEZ 2023-08-14 2023-08-14 Outpatient ANAI ROMERO [id number] Anai 14:50:00 14:50:00 FLORI Seybol d 2023-06-10 2023-06-10 Outpatient PREZANataly ANAI MORGAN [id number] Anai 08:45:00 08:45:00 RAYMUNDO Seybol d 2023-05-22 2023-05-22 Outpatient ROMEROANAI [id number] Anai 14:10:00 14:10:00 FLORI Seybol d 2023-05-15 2023-05-15 Outpatient PREZANataly ANAI MORGAN [id number] Anai 08:30:00 08:30:00 RAYMUNDO Seybol d 2023-05-03 2023-05-03 Outpatient [facility] ANAI MORGAN [id number] Anai 13:00:00 13:00:00 EDVIN Deutsch Se 2023-04-29 2023-04-29 Outpatient ANAI MARIE [id number] Anai 00:00:00 00:00:00 RAYMUNDO Seybol d 2023-04-25 2023-04-25 Outpatient ANAI MORGAN [id number] Anai 00:00:00 00:00:00 Seybol d 2023 2023 Outpatient ANAI MORGAN [id number] Anai 00:00:00 00:00:00 Seybol d 2023 2023 Outpatient ANAI MORGAN [id number] Anai 00:00:00 00:00:00 Seybol d 2023-04-18 2023-04-18 Outpatient ANAI MARIE [id number] Anai 00:00:00 00:00:00 RAYMUNDO Seybol d 2023-04-10 2023-04-10 Outpatient [facility]90 ANAI MORGAN [id number] Anai 16:15:00 16:15:00 Seybol d 2023-04-10 2023-04-10 Outpatient ANAI MARIE [id number] Anai 15:45:00 15:45:00 RAYMUNDO Seybol d 2023-04-06 2023-04-06 Outpatient ANAI MORGAN [id number] Anai 00:00:00 00:00:00 Seybol d 2023-04-05 2023-04-05 Outpatient [facility] ANAI MORGAN [id number] Anai 14:00:00 14:00:00 EDVIN Deutsch Se 2023-04-03 2023-04-03 Outpatient MICHELLE GARRETT ANAI ALMANZASEY [id number] Anai 09:10:00 09:10:00 Seybol d 2023-04-03 2023-04-03 Outpatient ANAI MARIE [id number] Anai 00:00:00 00:00:00 RAYMUNDO Seybol d 2023-03-31 2023-03-31 Outpatient ANAI MARIE [id number] Anai 00:00:00 00:00:00 RAYMUNDO Seybol d 2023-03-29 2023-03-29 Outpatient ERIKA SUAZO [id number] Anai 09:00:00 09:00:00 Seybol d 2023-03-25 2023-03-25 Outpatient ANAI MARIE [id number] Anai 00:00:00 00:00:00 RAYMUNDO Seybol d 2023-03-21 2023-03-21 Outpatient ANAI LU [id number] Anai 00:00:00 00:00:00 FLOR Seybol d 2023-03-21 2023-03-21 Outpatient KALEE MORGAN [id number] Anai 00:00:00 00:00:00 Olivier SHAW ANUPANA 2023-03-21 2023-03-21 Outpatient PANT ANAI MORGAN [id number] Anai 00:00:00 00:00:00 Olivier SHAW bold ANUPANA 2023-03-21 2023-03-21 Outpatient ANAI MORGAN [id number] Anai 00:00:00 00:00:00 Seybol d 2023-03-21 2023-03-21 Outpatient ANAI MORGAN [id number] 08 Anai 00:00:00 00:00:00 Seybol d 2023-03-14 2023-03-14 Outpatient ANAI MARIE [id number] [place] 00:00:00 00:00:00 RAYMUNDO Seybol d 2023-03-08 2023-03-08 Outpatient [place] ANAI MORGAN [id number] [place] 11:00:00 11:00:00 EDVIN Deutsch Se 2023-03-07 2023-03-07 Outpatient PREZANatalyANAI [id number] [place]ai 00:00:00 00:00:00 RAYMUNDO Seybol d 2023-03-06 2023-03-06 Outpatient LAB90 ANAI MORGAN [id number] Anai 17:15:00 17:15:00 Seybol d 2023-03-06 2023-03-06 Outpatient PREMENDEZ, ANAI MORGAN [id number] [place]ai 16:45:00 16:45:00 RAYMUNDO Seybol d 2023-03-05 2023-03-05 Outpatient FARR, ANAI MORGAN [id number] [place]ai 00:00:00 00:00:00 INGRIS Seybol d 2023-03-04 2023-03-04 Outpatient ANAI MORGAN [id number] [place] 10:15:00 10:15:00 Seybol d 2023-03-01 2023-03-01 Outpatient ERIKA SUAZO 123 [id number] An[place] 09:00:00 09:00:00 Seybol d 2023-02-26 2023-02-26 Outpatient 39, RIGOBERTOTER ANAI MORGAN [id number] An[place] 15:15:00 15:15:00 Seybol d 2023-02-26 2023-02-26 Outpatient TAMI MICHELLEMELANIE MORGAN [id number] An[place] 14:50:00 14:50:00 Seybol d 2023-02-24 2023-02-24 Outpatient PREMENDEZ, ANAI MORGAN [id number] [place] 00:00:00 00:00:00 RAYMUNDO Seybol d 2023-02-22 2023-02-22 Outpatient [place] ANAI MORGAN [id number] An[place] 13:00:00 13:00:00 EDVIN Deutsch Se 2023-02-21 2023-02-21 Outpatient ANAI MORGAN [id number] Anai 00:00:00 00:00:00 Seybol d 2023-02-16 2023-02-20 [facility] Katiuska Gandhi 1.2.840 .1 [id number] Methodi 10:05:00 12:02:00 Encounter Coral Montaño 89770.1.1 113 [place] Located Within [facility] 3.430.2.7 Hospita .3.684515 l .8 2023-02-16 2023-02-20 Inpatient [facility] Hos [id number] [place] 00:00:00 00:00:00 MCGEE [address] 2023-02-19 2023-02-19 Outpatient ANAI OJEDA [id number] [place] 00:00:00 00:00:00 LAUREEN Seyb old 2023-02-18 2023-02-18 Outpatient ANAI MORGAN [id number] [place] 00:00:00 00:00:00 Seybol d 2023-02-18 2023-02-18 Outpatient ANAI MORGAN [id number] Anai 00:00:00 00:00:00 Seybol d 2023-02-10 2023-02-13 [facility] Chapin Peraza 1.2.840.1 [id number] Methodi 17:12:00 16:35:00 Encounter Angelique Spann 63438.1.[address] 3.430.2.7 Hospit a .3.714033 l .8 2023-02-10 2023-02-13 Inpatient [facility] Hos [id number] [place] 00:00:00 00:00:[address] 2023-02-12 2023-02-12 Outpatient ANAI MARIE [id number] [place] 11:30:00 11:30:00 RAYMUNDO Seybol d 2023-02-12 2023-02-12 Outpatient ANAI OJEDA [id number] [place] 00:00:00 00:00:00 LAUREEN Seyb old 2023-02-12 2023-02-12 Outpatient ANAI MORGAN [id number] [place]ai 00:00:00 00:00:00 Seybol d 2023-02-11 2023-02-11 Outpatient PREMENDEZ ANAI MORGAN [id number] [place] 11:45:00 11:45:00 RAYMUNDO Seybol d 2023-02-11 2023-02-11 Outpatient ERIKA SUAZO ANAI ANAI [id number] An[place] 09:00:00 09:00:00 Seybol d 2023-02-07 2023-02-07 Outpatient ANAI MORGAN [id number] Anai 00:00:00 00:00:00 Seybol d 2023-02-05 2023-02-05 Outpatient ANAI MORGAN [id number] [place] 00:00:00 00:00:00 Seybol d 2023-02-04 2023-02-04 Outpatient ANAI MORGAN [id number] [place] 00:00:00 00:00:00 Seybol d 2023-02-04 2023-02-04 Outpatient ANAI MORGAN [id number] [place] 00:00:00 00:00:00 Seybol d 2023-02-04 2023-02-04 Outpatient PREZAS ANAI MORGAN [id number] [place] 00:00:00 00:00:00 RAYMUNDO Seybol d 2023-02-04 2023-02-04 Outpatient PREZASANAI [id number] [place]ai 00:00:00 00:00:00 RAYMUNDO Seybol d 2023-01-31 2023-02-03 [facility] 1.2.840 .1 [id number] Methodi 18:58:00 15:30:00 Encounter Girish Harrington Brandt 53790.1.1 [id number] 3.430.2.7 Hospit a .3.324804 l .8 2023-01-31 2023-02-03 Inpatient [facility]RAIG [facility] [id number] [place] 00:00:00 00:00:00 GIRISH [address] 2023-01-31 2023-01-31 Outpatient ANAI MARIE [id number] [place] 10:00:00 10:00:00 RAYMUNDO Seybol d 2023-01-31 2023-01-31 Outpatient ANAI MARIE [id number] [place] 00:00:00 00:00:00 RAYMUNDO Seybol d 2023-01-31 2023-01-31 Outpatient ANAI MORGAN [id number] [place]ai 00:00:00 00:00:00 Seybol d 2023-01-28 2023-01-28 Outpatient ANAI MORGAN [id number] [place] 00:00:00 00:00:00 Seybol d 2023-01-27 2023-01-27 Outpatient PREZASANAI [id number] [place] 00:00:00 00:00:00 RAYMUNDO Seybol d 2023-01-25 2023-01-25 Outpatient PREANAI SIMMS [id number] [place] 00:00:00 00:00:00 RAYMUNDO Seybol d 2023-01-24 2023-01-24 Outpatient ANAI MORGAN [id number] [place] 00:00:00 00:00:00 Seybol d 2023-01-23 2023-01-23 Outpatient ANAI MORGAN [id number] [place] 00:00:00 00:00:00 Seybol d 2023-01-23 2023-01-23 Outpatient ANAI MORGAN [id number] [place] 00:00:00 00:00:00 Seybol d 2023-01-22 2023-01-22 Outpatient ANAI MARIE [id number] [place] 00:00:00 00:00:00 RAYMUNDO Seybol d 2023-01-22 2023-01-22 Outpatient ANAI RENEE [id number] [place] 00:00:00 00:00:00 MARGARITO Seyb old 2023-01-21 2023-01-21 Outpatient ANAI MARIE [id number] [place] 00:00:00 00:00:00 RAYMUNDO Seybol d 2023-01-17 2023-01-17 Outpatient ERIKA SUAZO [id number] [place] 12:00:00 12:00:00 Seybol d 2023-01-11 2023-01-11 Outpatient PREZAS ANAI MORGAN [id number] [place] 11:45:00 11:45:00 RAYMUNDO Seybol d 2023-01-02 2023-01-02 Outpatient PREZAS, ANAI OMRGAN [id number] [place] 00:00:00 00:00:00 RAYMUNDO Seybol d 2022-12-31 2022-12-31 Outpatient PREZAS ANAI MORGAN [id number] [place] 00:00:00 00:00:00 RAYMUNDO Seybol d 2022-12-27 2022-12-27 Outpatient ANAI MORGAN [id number] [place] 09:00:00 09:00:00 Seybol d 2022-12-27 2022-12-27 Outpatient ERIKA SUAZO [id number] [place] 09:00:00 09:00:00 Seybol d 2022-12-26 2022-12-26 Outpatient LAB90 ANAI MORGAN [id number] [place] 08:45:00 08:45:00 Seybol d 2022-12-26 2022-12-26 Outpatient PREZASANAI [id number] [place] 08:15:00 08:15:00 RAYMUNDO Seybol d 2022-12-13 2022-12-13 Outpatient ERIKA SUAZO [id number] [place] 13:00:00 13:00:00 Seybol d 2022-12-13 2022-12-13 Outpatient [facility] ANAI MORGAN [id number] [place] 00:00:00 00:00:00 EDVIN Deutsch Se 2022-12-04 2022-12-04 Outpatient PREZASANAI [id number] [place] 00:00:00 00:00:00 RAYMUNDO Seybol d 2022-12-03 2022-12-03 Outpatient PREZASANAI [id number] [place] 00:00:00 00:00:00 RAYMUNDO Seybol d 2022-11-19 2022-11-19 Outpatient ERIKA SUAZO [id number] [place] 00:00:00 00:00:00 Seybol d 2022-11-19 2022-11-19 Outpatient [place] ANAI MORGAN [id number] [place] 00:00:00 00:00:00 EDVIN Deutsch Se ybold 2022-11-16 2022-11-16 Outpatient DANIELLE ROGEL ANAI MORGAN [id number] [place] 09:00:00 09:00:00 Seybol d 2022-11-13 2022-11-13 Outpatient ANAI MORGAN [id number] [place] 11:00:00 11:00:00 Seybol d 2022-11-13 2022-11-13 Outpatient TYRONE ESTRADA ANAI MORGAN [id number] [place] 00:00:00 00:00:00 Seybol d 2022-11-13 2022-11-13 Outpatient ANAI LIRA [id number] [place] 00:00:00 00:00:00 YITZCHAK Seybo ld 2022-11-11 2022-11-11 Outpatient AANI MARIE [id number] [place] 00:00:00 00:00:00 RAYMUNDO Seybol d 2022-11-09 2022-11-09 Outpatient ANAI LIRA [id number] [place] 13:15:00 13:15:00 YITZCHAK Seybo ld 2022-11-09 2022-11-09 Outpatient ANAI MARIE [id number] [place] 00:00:00 00:00:00 RAYMUNDO Seybol d 2022-11-08 2022-11-08 Outpatient [place] ANAI MORGAN [id number] [place] 00:00:00 00:00:00 EDVIN Deutsch Se ybold 2022-11-07 2022-11-07 Outpatient PREANAI SIMMS [id number] [place] 14:45:00 14:45:00 RAYMUNDO Seybol d 2022-11-07 2022-11-07 Outpatient ANAI MARIE [id number] [place] 00:00:00 00:00:00 RAYMUNDO Seybol d 2022-11-07 2022-11-07 Outpatient [place] ANAI ANAI [id number] [place] 00:00:00 00:00:00 A, EDVIN Crowder ybold 2022-11-06 2022-11-06 Outpatient ANAI ANAI [id number] [place] 15:00:00 15:00:00 Seybol d 2022-11-06 2022-11-06 Outpatient ANAI ANAI [id number] [place] 14:00:00 14:00:00 Seybol d 2022-11-06 2022-11-06 Outpatient [place] ANAI ANAI [id number] [place] 00:00:00 00:00:00 A, EDVIN Crowder ybold 2022-11-05 2022-11-05 Outpatient SORAYA, ANAI MORGAN [id number] [place] 00:00:00 00:00:00 CHARANJIT Seybo ld 2022-10-31 2022-10-31 Outpatient [place] ANAI ANAI [id number] [place] 15:30:00 15:30:00 A, EDVIN Crowder ybold 2022-10-31 2022-10-31 Outpatient [place] ANAI ANAI [id number] [place] 15:00:00 15:00:00 A, EDVIN Crowder ybold 2022-10-30 2022-10-30 Outpatient [place] ANAI ANAI [id number] [place] 00:00:00 00:00:00 A, EDVIN ybold 2022-10-30 2022-10-30 Outpatient [place] ANAI ANIA [id number] [place] 00:00:00 00:00:00 A, EDVIN Se ybold 2022-10-29 2022-10-29 Outpatient ANAI ANAI [id number] [place] 10:30:00 10:30:00 Seybol d 2022-10-26 2022-10-26 Outpatient RADIOLOGY, ANAI MORGAN [id number] [place] 00:00:00 00:00:00 DEPT Seybol d 2022-10-25 2022-10-25 Outpatient [facility] ANAI MORGAN [id number] [place] 13:45:00 13:45:00 Seybol d 2022-10-252022-10-25 Outpatient PREZAS, ANAI MORGAN [id number] [place]ani 00:00:00 00:00:00 RAYMUNDO Seybol d 2022-10-25 2022-10-25 Outpatient PREZAS, ANAI MORGAN [id number] [place] 00:00:00 00:00:00 RAYMUNDO Seybol d 2022-10-25 2022-10-25 Outpatient RADIOLOGY, ANAI MORGAN [id number] An[place] 00:00:00 00:00:00 DEPT Seybol d 2022-10-24 2022-10-24 Outpatient PREZAS, ANAI MORGAN [id number] [place] 00:00:00 00:00:00 RAYMUNDO Seybol d 2022-10-24 2022-10-24 Outpatient SORAYA, ANAI MORGAN [id number] [place] 00:00:00 00:00:00 YITZCHAK Seybo ld 2022-10-22 2022-10-22 Outpatient CORTEZ, ANAI MORGAN [id number] [place] 00:00:00 00:00:00 MANSI-MARY Se ybold A 2022-10-19 2022-10-19 Outpatient PREZAS, ANAI MORGAN [id number] [place] 10:30:00 10:30:00 RAYMUNDO Seybol d 2022-10-19 2022-10-19 Outpatient ANAI MORGAN [id number] [place] 10:30:00 10:30:00 Seybol d 2022-10-18 2022-10-18 Outpatient LAB39 ANAI MORGAN [id number] Anai 09:55:00 09:55:00 Seybol d 2022-10-18 2022-10-18 Outpatient BORSKI, ANAI MORGAN [id number] [place]ai 09:15:00 09:15:00 HALLIE Seybol d 2022-10-18 2022-10-18 Outpatient PREZAS, ANAI MORGAN [id number] [place] 00:00:00 00:00:00 RAYMUNDO Seybol d 2022-10-08 2022-10-08 Outpatient PREZASANAI [id number] [place]ai 00:00:00 00:00:00 RAYMUNDO Seybol d 2022-10-06 2022-10-06 Outpatient PREZAS, ANAI MORGAN [id number] [place] 00:00:00 00:00:00 RAYMUNDO Seybol d 2022-10-02 2022-10-02 Outpatient PREZAS, ANAI MORGAN [id number] [place] 00:00:00 00:00:00 RAYMUNDO Seybol d 2022-09-21 2022-09-21 Outpatient PREZAS, ANAI MORGAN [id number] [place] 11:00:00 11:00:00 RAYMUNDO Seybol d 2022-09-15 2022-09-15 Outpatient PREZAS, ANAI MORGAN [id number] [place] 00:00:00 00:00:00 RAYMUNDO Seybol d 2022-09-14 2022-09-14 Outpatient ANAI MORGAN [id number] [place] 07:30:00 07:30:00 Seybol d 2022-09-14 2022-09-14 Outpatient PREZAS, ANAI MORGAN [id number] [place] 00:00:00 00:00:00 RAYMUNDO Seybol d 2022-09-08 2022-09-08 Outpatient PREZAS, ANAI MORGAN [id number] [place] 00:00:00 00:00:00 RAYMUNDO Seybol d 2022-09-07 2022-09-07 Outpatient LAB90 ANAI MORGAN [id number] [place] 14:20:00 14:20:00 Seybol d 2022-09-07 2022-09-07 Outpatient PREZAS, ANAI MORGAN [id number] [place] 13:45:00 13:45:00 RAYMUNDO Seybol d 2022-08-14 2022-08-14 Outpatient PREZAS, ANAI MORGAN [id number] [place] 00:00:00 00:00:00 RAYMUNDO Seybol d 2022-08-03 2022-08-03 Outpatient PREZAS, ANAI MORGAN [id number] [place] 00:00:00 00:00:00 RAYMUNDO Seybol d 2022-07-26 2022-07-26 Outpatient PREZAS, ANAI MORGAN [id number] [place] 08:30:00 08:30:00 RAYMUNDO Seybol d 2022-07-17 2022-07-17 Outpatient PREZAS, ANAI MORGAN [id number] [place] 08:00:00 08:00:00 RAYMUNDO Seybol d 2022-06-27 2022-06-27 Outpatient LAB90 ANAI MORGAN [id number] [place] 08:30:00 08:30:00 Seybol d 2022-06-26 2022-06-26 Outpatient PREZAS, ANAI MORGAN [id number] [place] 09:00:00 09:00:00 RAYMUNDO Seybol d 2022-04-26 2022-04-26 Outpatient PREZAS, ANAI MORGAN [id number] [place] 09:15:00 09:15:00 RAYMUNDO Seybol d 2022-04-26 2022-04-26 Outpatient PREZAS, ANAI MORGAN [id number] [place] 08:15:00 08:15:00 RAYMUNDO Seybol d 2022-04-09 2022-04-09 Outpatient PREZAS, ANAI MORGAN [id number] [place] 00:00:00 00:00:00 RAYMUNDO Seybol d 2022-04-05 2022-04-05 Outpatient PREZAS, ANAI MORGAN [id number] [place] 00:00:00 00:00:00 RAYMUNDO Seybol d 2022-04-04 2022-04-04 Outpatient LAB90 ANAI MORGAN [id number] [place] 10:45:00 10:45:00 Seybol d 2022-04-04 2022-04-04 Office Jorge Marie 1.2.840.114 [id number] [place] 10:15:00 10:30:00 Visit Raymundo Boyd 350.1.13.13 Se ybold 1.2.7.2.686 [id number] 2022-03-30 2022-03-30 Outpatient PREMENDEZ, ANAI MORGAN [id number] [place] 00:00:00 00:00:00 RAYMUNDO Seybol d 2022-03-07 2022-03-07 Office Jorge Marie 1.2.840.114 [id number] [place] 11:30:00 12:00:00 Visit Raymundo Boyd 350.1.13.13 Se ybold 1.2.7.2.686 [id number] 2022-03-07 2022-03-07 Outpatient PREZAS, ANAI MORGAN [id number] [place] 00:00:00 00:00:00 RAYMUNDO Seybol d 2022-02-23 2022-02-23 Outpatient LAB90 ANAI MORGAN [id number] [place] 08:30:00 08:30:00 Seybol d 2022-02-23 2022-02-23 Outpatient PREZAS, ANAI MORGAN [id number] [place] 00:00:00 00:00:00 RAYMUNDO Seybol d 2022-02-05 2022-02-05 Outpatient PREZAS, ANAI MORGAN [id number] [place] 00:00:00 00:00:00 RAYMUNDO Seybol d 2022-02-02 2022-02-02 Outpatient PREZAS, ANAI MORGAN [id number] [place] 00:00:00 00:00:00 RAYMUNDO Seybol d 2022-02-01 2022-02-01 Outpatient PREZAS, ANAI MORGAN [id number] [place] 00:00:00 00:00:00 RAYMUNDO Seybol d 2022-01-25 2022-01-25 Outpatient PREZAS, ANAI MORGAN [id number] [place] 00:00:00 00:00:00 RAYMUNDO Seybol d 2022-01-25 2022-01-25 Outpatient PREZAS, ANAI MORGAN [id number] [place]ai 00:00:00 00:00:00 RAYMUNDO Seybol d 2022-01-24 2022-01-24 Office PrezaJorge trivedi 1.2.840.114 [id number] [place] 09:00:00 09:30:00 Visit Raymundo Boyd 350.1.13.13 Se ybold 1.2.7.2.686 [id number] 2022-01-19 2022-01-19 Outpatient PREZAS, ANAI MORGAN [id number] [place] 08:30:00 08:30:00 RAYMUNDO Seybol d 2021-12-20 2021-12-20 Outpatient PREZAS, ANAI MORGAN [id number] [place]ai 00:00:00 00:00:00 RAYMUNDO Seybol d 2021-12-14 2021-12-14 Outpatient PREZANataly ANAI MORGAN [id number] [place]ai 00:00:00 00:00:00 RAYMUNDO Seybol d 2021-12-08 2021-12-08 Outpatient PREMENDEZ ANAI MORGAN [id number] [place] 08:00:00 08:00:00 RAYMUNDO Seybol d 2021-11-29 2021-11-29 Outpatient PREZAS, ANAI MORGAN [id number] [place]ai 00:00:00 00:00:00 RAYMUNDO Seybol d 2021-11-24 2021-11-24 Office Jorge MARIE 1.2.840.114 [id number] Anai 13:30:00 13:30:00 Visit RAYMUNDO Boyd 350.1.13.13 Se ybold 1.2.7.2.686 [id number] 2021-11-24 2021-11-24 Outpatient PREZANataly ANAI MORGAN [id number] [place] 09:00:00 09:00:00 RAYMUNDO Seybol d 2021-11-21 2021-11-21 Outpatient ANAI MARIE [id number] [place] 00:00:00 00:00:00 RAYMUNDO Seybol d 2021-11-20 2021-11-20 Outpatient PREANAI SIMMS [id number] [place] 00:00:00 00:00:00 RAYMUNDO Seybol d 2021-11-20 2021-11-20 Outpatient ANAI MENDIETA [id number] [place] 00:00:00 00:00:00 AVA Seybol d 2021-11-16 2021-11-16 Office Jorge Marie 1.2.840.114 [id number] [place] 08:00:00 08:15:00 Visit Raymundo Boyd 350.1.13.13 Se ybold 1.2.7.2.686 [id number] 2021-11-15 2021-11-15 Outpatient ANAI MARIE [id number] [place]ai 00:00:00 00:00:00 RAYMUNDO Seybol d 2021-10-31 2021-10-31 Outpatient LAB90 ANAI MORGAN [id number] Anai 10:15:00 10:15:00 Seybol d 2021-10-31 2021-10-31 Office Jorge Marie 1.2.840.114 [id number] Anai 09:45:00 10:00:00 Visit Raymundo Boyd 350.1.13.13 Se ybold 1.2.7.2.686 [id number] 2021-10-30 2021-10-30 Outpatient PREZAS, ANAI MORGAN [id number] [place] 00:00:00 00:00:00 RAYMUNDO Seybol d 2021-09-25 2021-09-25 Outpatient PREZAS, ANAI MORGAN [id number] [place]ai 00:00:00 00:00:00 RAYMUNDO Seybol d 2021-09-22 2021-09-22 Outpatient LAB90 ANAI MORGAN [id number] Anai 08:10:00 08:10:00 Seybol d 2021-09-20 2021-09-20 Outpatient PREZAS, ANAI MORGAN [id number] Anai 00:00:00 00:00:00 RAYMUNDO Seybol d 2021-09-18 2021-09-18 Outpatient PREZAS, ANAI MORGAN [id number] Anai 00:00:00 00:00:00 RAYMUNDO Seybol d 2021-09-18 2021-09-18 Outpatient PREZAS, ANAI MORGAN [id number] Anai 00:00:00 00:00:00 RAYMUNDO Seybol d 2021-09-15 2021-09-15 Office Jorge Marie 1.2.840.114 [id number] Anai 14:45:00 15:30:00 Visit Raymundo Boyd 350.1.13.13 Se ybold 1.2.7.2.686 [id number] Results Test Description Test Time Test Comments Results Result Comments Source POC glucose 2023-02-20 13:21:00 Test Item Value Reference Range Interpretation Comme nts POC glucose (test code = 91 mg/dL 65-99 Ope rator Name: John Patton ID: [id number]) [id number] able: TM Notified RN [facility] 12 [id number] 20:54:01 Test Item Value Reference Range Interpretation Comments Ventricular rate (test 53 code = 253) QRSD interval (test 152 code = 260) QT interval (test code 512 = 264) QTC interval (test 480 code = 265) QRS axis 1 (test code 54 = 268) T wave axis (test code 232 = 270) EKG impression (test Atrial fibrillation code = 273) with slow ventricular response-Left bundle branch block-Abnormal ECG-In automated comparison with ECG of 17-FEB-2023 11:49,-Vent. rate has decreased BY 28 BPM-T wave inversion no longer evident in [facility]ateral [id number]:38:00 Test Item Value Reference Range Interpretation Comments Urine culture Mixed kendell Specimen isolate (test <=10-3 col/cc InformationSp ecimen code = 45126-9) Source: Urin eSpecimen Site: Clean cat [facility] ED Preliminary Interpretation - Not an [id number] 23:00:55 Test Item Value Reference Range Interpretation Comments JOAQUIN (test code = JOAQUIN) Chapin Peraza MD 02/13/2023 1:38 [facility] [place] Interpretation - Not an Order Performed by: Chapin Peraza MDAuthorized by: Chapin Peraza MD ECG reviewed by ED Physician in the absence of a correctional medicine physician: yes Previous ECG: Previous ECG: UnavailableInterpretat ion: Interpretation: abnormal Rate: ECG rate: 89 ECG rate assessment: normal Rhythm: Rhythm: atrial fibrillation Ectopy: Ectopy: none QRS: QRS axis: Normal QRS intervals: NormalConduction: Conduction: abnormal Abnormal conduction: incomplete LBBB ST segments: ST segments: NormalT waves: T waves: normal Lab Interpretation Abnormal (test code = 87077-3) [facility]
[2023-05-02 02:45] LABS: Absolute Lymphocytes (CBC) 1.5 K/uL (0.7-4.9); Hematocrit 34.4 % (39.6-49.0); Lymphocytes % 24.4 % (15.3-44.8); MCV 95.4 fL (80-100); MPV 7.5 fL (7.6-11.3); Platelets 146 thou/uL (152-406); RBC Red Blood Cell Count 3.61 M/uL (4.33-5.43)
[2023-05-02] MEDS ORDERED: ONDANSETRON 4 MG/2 ML VIAL ONE (02:48)
[2023-05-02] MEDS ORDERED: MORPHINE 4 MG/ML SYR ONE (02:48)
[2023-05-02 03:00] LABS: Albumin 3.4 g/dL (3.4-5.0); Bilirubin Total 0.6 mg/dL (0.2-1.0); Protein, Total 7.3 g/dL (6.4-8.2)
--- NOTE | 2023-05-02 05:03 | EDPHYS ---
Physician Documentation [facility] Name: Juan Nelson Age: 78 yrs Sex: Male : 1945 Arrival Date: 05/02/2023 Time: 02:13 Bed 14 Private MD: ED Physician Trae Cunha HPI: 05/02 02:38 This 78 yrs old Male presents to ER via Unassigned with complaints of kb Shortness Of Breath. 02:36 Pt presents with abd pain for 3 days. States the pain is causing him to have shortness kb of breath. Denies nausea, vomiting, diarrhea, fever. Pt has history of laryngeal cancer, in remission. completed chemo and radiation in December 2022. . 02:38 The patient presents with abdominal pain that is diffuse. Onset: The symptoms/episode kb began/occurred 3 day(s) ago. The symptoms do not radiate. Associated signs and symptoms: Pertinent positives: shortness of breath. The symptoms are described as constant. Modifying factors: The symptoms are alleviated by nothing, the symptoms are aggravated by nothing. Severity of pain: At its worst the pain was moderate in the emergency department the pain is unchanged. The patient has experienced similar episodes in the past. The patient has not recently seen a physician. 05:02 Patient care assumed from nurse practitioner at 3 AM. Patient has history of atrial sp4 fibrillation with RVR, history of heart failure, history of diabetes insulin-dependent, alcoholic liver cirrhosis, hypothyroidism, laryngeal cancer, mitral regurgitation, cardiac valve disease, history of prior ascites. History of ejection fraction 40%, patient has history of cardioversion for atrial fibrillation with the last admission 01/23/2023. Patient's medications include carvedilol, cetirizine, Lasix, levothyroxine, metformin, omeprazole, spironolactone, atorvastatin, citalopram, Advair, [place] as needed pain, Protonix, glipizide, apixaban, and sotalol. Primary physician is Dr. Cynthia Fonseca . Historical: - Allergies: 02:19 No Known Allergies; ha1 - Home Meds: 02:19 furosemide 40 mg Oral tab 1 tab once daily [Active]; carvedilol 25 mg Oral tab 1 tab 2 ha1 times per day [Active]; atorvastatin 10 mg Oral tab 1 tab once daily [Active]; - PMHx: 02:19 AFIB; ascites; chemotherapy; COPD; Diabetes - NIDDM; Hypertensive disorder; ha1 Hypothyroidism; throat cancer; - PSHx: 02:19 Cholecystectomy; ha1 - Immunization history:: Adult Immunizations unknown. - Social history:: Smoking status: Patient denies any tobacco usage or history of. ROS: 02:38 Constitutional: Negative for fever, chills, and weight loss, kb 02:38 Respiratory: Positive for shortness of breath, 02:38 Abdomen/GI: Positive for abdominal pain, Negative for nausea, vomiting, and diarrhea, 02:38 All other systems are negative, Exam: 02:39 Head/Face: Normocephalic, atraumatic. ENT: Moist Mucous membranes Skin: Warm, dry kb with normal turgor. Normal color. MS/ Extremity: Pulses equal, no cyanosis. Neurovascular intact. Full, normal range of motion. Neuro: Awake and alert, GCS 15, oriented to person, place, time, and situation. Moves all extremities. Normal gait. 02:39 Constitutional: The patient appears alert, awake, uncomfortable, 02:39 Cardiovascular: Rate: normal, Rhythm: irregularly irregular, Heart sounds: murmur, 02:39 Respiratory: mild respiratory distress is noted, Respirations: labored breathing, that is mild, Breath sounds: are clear throughout, 02:39 Abdomen/GI: Inspection: abdomen appears normal, Bowel sounds: normal, Palpation: soft, in all quadrants, mild abdominal tenderness, in all quadrants, 05:07 ECG was reviewed by the Attending Physician. EKG reveals atrial fibrillation with PVCs, sp4 nonspecific bundle branch block, no sign of ST elevated [place]. Vital Signs: 02:19 BP 129 / 94; Pulse 97; Resp 18; Temp 97.9; Pulse Ox 95% on R/A; Weight 83.91 kg; Height ha1 5 ft. 6 in. ; 03:00 BP 129 / 94; Pulse 101; Resp 17 S; Pulse Ox 95% on R/A; ha1 04:00 BP 108 / 61; Pulse 91; Resp 15 S; Pulse Ox 98% on 2 lpm NC; ha1 05:00 BP 128 / 94; Pulse 82; Resp 17 S; Pulse Ox 97% on 2 lpm NC; ha1 02:19 Body Mass Index 29.86 (83.91 kg, 167.64 cm) ha1 MDM: 02:21 Patient medically screened. kb 02:40 Data reviewed: vital signs, nurses notes. kb 02:43 Transition of care: After a detail discussion of the patient's case, care is kb transferred to Trae Cunha MD. 04:35 ED course: CT report - IMPRESSION: 1. Moderate layering right pleural effusion with sp4 right basilar compressive atelectasis. 2. Small left pleural effusion. 3. Cardiomegaly with coronary artery atherosclerosis. 4. Nodular contour of the liver. This could be seen with cirrhosis. 5. Wall thickening of the urinary bladder. This could be seen with cystitis or chronic bladder outlet obstruction. 6. Enlarged prostate. 7. Diverticulosis without evidence of acute diverticulitis. 8. Segment wall thickening and somewhat nodular configuration of the sigmoid colon. 9. This could be related to diverticular disease or chronic inflammatory colitis or neoplasm is a consideration. Correlation for appropriate colorectal cancer screening history recommended. 10. Stable pulmonary nodules in the left lower lobe, the largest measuring 1.3 cm. Per Fleischner Society Guidelines, consider a non-contrast Chest CT at 3 months, a PET/CT, or tissue sampling. These guidelines do not apply to immunocompromised patients and patients with cancer. Follow up in patients with significant comorbidities as clinically warranted. For lung cancer screening, adhere to Lung-RADS guidelines. Reference: Radiology. 2017; 284(1):228-43.. 05:05 Differential diagnosis: Anemia Anxiety Reaction asthma, CHF exacerbation, Chronic sp4 Obstructive Pulmonary Disease pneumonia, Psychogenic pulmonary edema. Data reviewed: old medical records, lab test result(s), EKG, radiologic studies, CT scan. Consideration of Admission/Observation Patient was admitted/placed on observation. Escalation of care including admission/observation considered. Management of patient was discussed with the following: Hospitalist: Admission team . ED course: There he is findings of moderate layering right pleural effusion with right basilar compressive atelectasis on the CAT scan, also small left pleural effusion, cardiomegaly with coronary artery calcifications, nodular liver cirrhosis, urinary bladder thickening, enlarged prostate, diverticulosis, segmental wall thickening indicative of chronic diverticular disease, or chronic inflammatory colitis, stable pulmonary nodules, it was determined that patient warrants admission for evaluation of right pleural effusion causing dyspnea, will admit to hospitalist team with request to consult pulmonology.. 05/02 02:29 Order name: CBC with Diff; Complete Time: 04:41 kb 05/02 02:29 Order name: CMP; Complete Time: 04:41 kb 05/02 02:29 Order name: Lipase; Complete Time: 04:41 kb 05/02 02:29 Order name: Urinalysis w/ reflexes kb 05/02 04:41 Order name: Troponin High Sensitivity; Complete Time: 05:18 sp4 05/02 04:41 Order name: CRP; Complete Time: 05:18 sp4 05/02 04:42 Order name: BNP; Complete Time: 05:18 sp4 05/02 02:29 Order name: CT Chest, Abdomen, Pelvis - W/Contrast kb 05/02 05:16 Order name: CONS Physician Consult EDMS 05/02 02:29 Order name: IV Saline Lock; Complete Time: 02:33 kb 05/02 02:29 Order name: Labs collected and sent; Complete Time: 02:33 kb EC:07 Rate is 103 beats/min. Rhythm is irregularly irregular, A fib. Clinical impression: No sp4 evidence of ischemia. Administered Medications: 02:34 Not Given (Physician Discretion): ns 0.9% 1000 ml IV at 1 bolus Per protocol; 1000 mL kb bolus 02:41 Drug: Ondansetron IVP 4 mg IVP once; over 2 minutes Route: IVP; Site: left antecubital; ha1 03:00 Follow up: Response: No adverse reaction ha1 02:41 Drug: morphine IVP or IV 4 mg IVP once over 4 mins Route: IVP; Infused Over: 4 mins; ha1 Site: left antecubital; 03:00 Follow up: Response: No adverse reaction; Pain is decreased; RASS: Alert and Calm (0) ha1 Disposition: 05:00 Co-signature as Attending Physician, Trae Cunha MD I agree with the assessment sp4 and plan of care. I reviewed the patient's care provided by Advanced Practice Provider \T\ agree w/ the diagnosis \T\ care plan. I personally saw the pt \T\ performed a substantive portion of the visit, incldng all aspects of the (History/Exam/Medical Decision Making). Disposition Summary: 05/02/23 05:02 Hospitalization Ordered Notes: Hospitalization Status: Inpatient Admission sp4 Provider: Дмитрий Andrea sp4 Location: Telemetry/MedSur (observation) sp4 Condition: Stable sp4 Problem: new sp4 Symptoms: are unchanged sp4 Bed/Room Type: Standard sp4 Room Assignment: 427(05/02/23 05:29) cg Diagnosis - Pleural effusion, not elsewhere classified sp4 - Rate controlled atrial fibrillation, right moderate pleural effusion, liver sp4 cirrhosis, hypothyroidism, diabetes mellitus Forms: - Medication Reconciliation Form sp4 - SBAR form sp4 - Leadership Thank You Letter sp4 Signatures: Dispatcher [employer] EDAlison Diez, COLD WATER MACHINE OPERATOR-C MARCELA-Maddy Yates RN RN Trixie Schuster RN RN ha1 Trae Cunha MD MD sp4 Corrections: (The following items were deleted from the chart) 05:29 05:02 sp4 cg
--- NOTE | 2023-05-02 05:03 | P.HP ---
Certification for Inpatient Patient admitted to: Inpatient With expected LOS: <2 Midnights Patient will require the following post-hospital care: None Practitioner: I am a practitioner with admitting privileges, knowledge of patient current condition, hospital course, and medical plan of care. Services: Services provided to patient in accordance with Admission requirements found in Title 42 Section 412.3 of the Code of Federal Regulations Patient History Date of Service: 05/02/23 Reason for admission: shortness of breath History of Present Illness: 78-year-old male with a past medical history of alcoholic cirrhosis, atrial fibrillation on anticoagulation, hyperlipidemia, hypertension, diabetes, hypothyroidism, laryngeal cancer, in remission. completed chemo and radiation in December 2022. presents to the emergency room with shortness of breath. He reports shortness of breath is worse with exertion. He reports started 3 days ago worse last night. He denies abdominal tenderness, rectal bleeding, fever chills, cough, vomiting diarrhea, wheezing,. BP 129 / 94; Pulse 97; Resp 18; Temp 97.9; Pulse Ox 95% on R/A, Pleural effusion, not elsewhere classified Rate controlled atrial fibrillation, right moderate pleural effusion, liver cirrhosis, hypothyroidism, diabetes mellitus. CT of the abdomen pelvis ordered, report pending. Laboratory evaluation no leukocytosis normocytic anemia 11.6 34.4, thrombocytopenia platelets 146, CMP BUN and creatinine, potassium normal. BNP 10/29/2000. Troponin normal at 26.3, UA pending Allergies No Known Drug Allergies Allergy (Verified 09/07/18 20:11) Unknown Home Medications: Carvedilol [Coreg] 1 tab PO BIDWM 11/16/21 Cetirizine HCl [Zyrtec*] 1 tab PO DAILY 11/16/21 Furosemide 1 tab PO DAILY 11/16/21 Levothyroxine Sodium 1 tab PO [id number] 11/16/21 Metformin HCl 1 tab PO BID 11/16/21 Omeprazole 1 tab PO DAILY 11/16/21 Rivaroxaban [Xarelto] 1 tab PO DAILY AT SUPPER 11/16/21 Spironolactone 1 tab PO DAILY 11/16/21 Atorvastatin Calcium [Lipitor*] 10 mg PO BEDTIME 01/22/23 Citalopram [Celexa*] 10 mg PO DAILY 01/22/23 Fluticasone/Salmeterol [Advair 250-50 Diskus] 2 inh IH DAILY 01/22/23 Hydrocodone/Acetaminophen [Hydrocodon-Acetamin 7.5-325/15] 15 ml PO BID PRN 01/22/23 Pantoprazole [Protonix Tab*] 40 mg PO DAILY 01/22/23 glipiZIDE [Glipizide] 10 mg PO BID 01/22/23 Apixaban [Eliquis] 5 mg PO BID 90 Days #180 tab 01/30/23 Furosemide [Lasix*] 40 mg PO DAILY 30 Days #30 tab 01/30/23 Sotalol HCl [Betapace*] 80 mg PO BID 6AM 6PM 90 Days #180 tab 01/30/23 - Past Medical/Surgical History Diabetic: Yes -: Hypothyroidism -: DM-NIDDM -: AFIB -: HTN -: COPD -: ascites -: Throat cancer -: Chemo/radiation -: Cholecystectomy -: Rt elbow sx - Family History Mother -: Cancer - Social History Alcohol use: No CD- Drugs: No Caffeine use: Yes Review of Systems 10-point ROS is otherwise unremarkable Physical Examination - Physical Exam General: Alert, In no apparent distress, Oriented x3 HEENT: Atraumatic, Normocephalic, PERRLA Neck: Supple, 2+ carotid pulse no bruit, JVD not distended Respiratory: Normal air movement, Diminished Cardiovascular: No edema, Normal pulses, Regular rate/rhythm, Normal S1 S2 Capillary refill: <2 Seconds Gastrointestinal: Normal bowel sounds, Soft and benign Musculoskeletal: No clubbing, No swelling Integumentary: No rashes, No breakdown Neurological: Normal gait, Normal speech, Normal strength at 5/5 x4 extr - Studies Laboratory Data (last 24 hrs) 05/02/23 05/02/23 02:33 02:33 WBC 6.20 Hgb 11.6 L Hct 34.4 L Plt Count 146 L Sodium 138 Potassium 4.0 BUN 14 Creatinine 0.88 Glucose 145 H Total Bilirubin 0.6 AST 11 L ALT 12 L Alkaline Phosphatase 58 Lipase 13 Assessment and Plan - Plan Assessment plan Acute hypoxic respiratory failure secondary to pleural effusion versus acute on chronic heart failure-acute Elevated BNP Atrial fib RVR controlled rate alcoholic cirrhosis hyperlipidemia hypertension Type II diabetes hypothyroidism laryngeal cancer, Assessment plan Acute hypoxic respiratory failure secondary to pleural effusion versus acute on chronic heart failure-acute Elevated BNP Atrial fib RVR controlled rate Cardiology consult, pulmonary consult trend BMP BP 129 / 94; Pulse 97; Resp 18; Temp 97.9; Pulse Ox 95% on R/A, CT of the abdomen pelvis pleural effusion, pending report Troponin normal at 26.3, BNP 4301 Lasix 40 mg IV twice daily,, daily weight alcoholic cirrhosis hyperlipidemia hypertension Type II diabetes hypothyroidism Resume appropriate home meds Normocytic anemia normocytic anemia 11.6 34.4, thrombocytopenia platelets 146, laryngeal cancer in remission. completed chemo and radiation in December 2022 Cardiac diet Full code DVT resume home anticoagulation Discharge Plan: Home Plan to discharge in: 48 Hours - Advance Directives Does patient have a Living Will: No Does patient have a Durable POA for Healthcare: No - Code Status/Comfort Care Code Status: Full Code Physician Review: Patient Assessed, Agree with Above Assessment and Plan Critical Care: No Time Spent Managing Pts Care (In Minutes): 50
--- NOTE | 2023-05-02 05:03 | ER ---
Nurse's Notes [facility] Name: Juan Nelson Age: 78 yrs Sex: Male : 1945 Arrival Date: 05/02/2023 Time: 02:13 Bed 14 Private MD: Diagnosis: Pleural effusion, not elsewhere classified;Rate controlled atrial fibrillation, right moderate pleural effusion, liver cirrhosis, hypothyroidism, diabetes mellitus Presentation: 05/02 02:19 Chief complaint: Patient states: I have a severe abdominal pain that leaves me without ha1 a breath. 02:19 Coronavirus screen: Vaccine status: Patient reports receiving the 2nd dose of the covid ha1 vaccine. Moderna. Ebola Screen: No symptoms or risks identified at this time. Initial Sepsis Screen: Does the patient meet any 2 criteria? No. Patient's initial sepsis screen is negative. Does the patient have a suspected source of infection? No. Patient's initial sepsis screen is negative. Risk Assessment: Do you want to hurt yourself or someone else? Patient reports no desire to harm self or others. Onset of symptoms was May 02, 2023. 02:19 Method Of Arrival: Wheelchair ha1 02:19 Acuity: KRISTEL 3 ha1 Triage Assessment: 02:19 General: Appears uncomfortable, Behavior is cooperative, anxious. Pain: Complains of ha1 pain in abdomen Pain does not radiate. Pain currently is 9 out of 10 on a pain scale. Neuro: Level of Consciousness is awake, alert, obeys commands, Oriented to person, place, time, situation. Cardiovascular: Reports shortness of breath, Patient's skin is warm and dry. Respiratory: Reports shortness of breath at rest Airway is patent Respiratory effort is even, unlabored, Respiratory pattern is regular, symmetrical, Onset: The symptoms/episode began/occurred gradually, the patient has mild shortness of breath. GI: Abdomen is round non-distended, Bowel sounds present X 4 quads. Reports lower abdominal pain, upper abdominal pain. Musculoskeletal: Circulation, motion, and sensation intact. Historical: - Allergies: : No Known Allergies; ha1 - Home Meds: : furosemide 40 mg Oral tab 1 tab once daily [Active]; carvedilol 25 mg Oral tab 1 tab 2 ha1 times per day [Active]; atorvastatin 10 mg Oral tab 1 tab once daily [Active]; - PMHx: 02:19 AFIB; ascites; chemotherapy; COPD; Diabetes - NIDDM; Hypertensive disorder; ha1 Hypothyroidism; throat cancer; - PSHx: 02:19 Cholecystectomy; ha1 - Immunization history:: Adult Immunizations unknown. - Social history:: Smoking status: Patient denies any tobacco usage or history of. Screenin:19 [facility] ED Fall Risk Assessment (Adult) History of falling in the last 3 months, ha1 including since admission No falls in past 3 months (0 pts) Confusion or Disorientation No (0 pts) Intoxicated or Sedated No (0 pts) Impaired Gait No (0 pts) Mobility Assist Device Used No (0 pt) Altered Elimination No (0 pt) Score/Fall Risk Level 0 - 2 = Low Risk Oriented to surroundings, Maintained a safe environment, Educated pt \T\ family on fall prevention, incl call for assistance when getting out of bed. 03:09 Abuse screen: Denies threats or abuse. Denies injuries from another. Nutritional ha1 screening: No deficits noted. Tuberculosis screening: No symptoms or risk factors identified. Assessment: 02:19 Cardiovascular: Patient's skin is warm and dry. Respiratory: Airway is patent ha1 Respiratory effort is even, unlabored, Respiratory pattern is regular, symmetrical, Breath sounds with wheezes bilaterally. 02:19 Reassessment: see triage assessment. ha1 03:00 Reassessment: Patient and/or family updated on plan of care and expected duration. Pain ha1 level reassessed. Patient is alert, oriented x 3, equal unlabored respirations, skin warm/dry/pink. Patient states feeling better. Patient states symptoms have improved. 04:00 Reassessment: Patient and/or family updated on plan of care and expected duration. Pain ha1 level reassessed. Patient is alert, oriented x 3, equal unlabored respirations, skin warm/dry/pink. Patient states feeling better. 05:00 Reassessment: Patient and/or family updated on plan of care and expected duration. Pain ha1 level reassessed. Patient is alert, oriented x 3, equal unlabored respirations, skin warm/dry/pink. 06:00 Reassessment: Patient and/or family updated on plan of care and expected duration. Pain ha1 level reassessed. Patient is alert, oriented x 3, equal unlabored respirations, skin warm/dry/pink. Vital Signs: 02:19 BP 129 / 94; Pulse 97; Resp 18; Temp 97.9; Pulse Ox 95% on R/A; Weight 83.91 kg; Height ha1 5 ft. 6 in. ; 03:00 BP 129 / 94; Pulse 101; Resp 17 S; Pulse Ox 95% on R/A; ha1 04:00 BP 108 / 61; Pulse 91; Resp 15 S; Pulse Ox 98% on 2 lpm NC; ha1 05:00 BP 128 / 94; Pulse 82; Resp 17 S; Pulse Ox 97% on 2 lpm NC; ha1 02:19 Body Mass Index 29.86 (83.91 kg, 167.64 cm) ha1 ED Course: 02:14 Patient arrived in ED. ag3 02:19 Patient has correct armband on for positive identification. Bed in low position. Call ha1 light in reach. Side rails up X 1. Adult w/ patient. 02:19 Arm band placed on. ha1 02:21 Alison Boyd FNP-C is PHCP. kb 02:21 Trae Cunha MD is Attending Physician. kb 02:33 Trixie Rodrigues RN is Primary Nurse. ha1 03:04 Triage completed. ha1 03:45 CT Chest, Abdomen, Pelvis - W/Contrast In Process Unspecified. EDMS 05:01 Дмитрий Andrea is Hospitalizing Provider. sp4 06:27 No provider procedures requiring assistance completed. Patient admitted, IV remains in ha1 place. 06:31 Provided Education on: need for admit . ha1 Administered Medications: 02:34 Not Given (Physician Discretion): ns 0.9% 1000 ml IV at 1 bolus Per protocol; 1000 mL kb bolus 02:41 Drug: Ondansetron IVP 4 mg IVP once; over 2 minutes Route: IVP; Site: left antecubital; ha1 03:00 Follow up: Response: No adverse reaction ha1 02:41 Drug: morphine IVP or IV 4 mg IVP once over 4 mins Route: IVP; Infused Over: 4 mins; ha1 Site: left antecubital; 03:00 Follow up: Response: No adverse reaction; Pain is decreased; RASS: Alert and Calm (0) ha1 Medication: 06:29 VIS not applicable for this client. ha1 Outcome: 05:02 Decision to Hospitalize by Provider. sp4 06:20 Admitted to Tele accompanied by tech, via wheelchair, room 427, with oxygen, with ha1 chart, Report called to MELVIN Turk 06:20 Condition: stable ha1 06:20 Discharge instructions given to patient, family, Instructed on the need for admit, Demonstrated understanding of instructions, follow-up care, 06:32 Patient left the ED. ha1 Signatures: Dispatcher [employer] EDAlison Diez, MARCELA-Steven MEDRANO-Ewelina Kimble 3 Trixie Rodrigues, MELVIN RN ha1 Trae Cunha MD MD sp4
[2023-05-02 05:11] LABS: C-Reactive Protein 6.88 mg/L (<3.00); Troponin High Sensitivity 26.3 pg/mL (<58.9)
[2023-05-02 06:51] VITALS: BMI 29.8
[2023-05-02] MEDS ORDERED: ACETAMINOPHEN 500 MG TAB PO PRN (06:58)
[2023-05-02] MEDS ORDERED: FUROSEMIDE 40 MG/4 ML VIAL IV SCH (09:00)
[2023-05-02 09:02] LABS: Specific Gravity > 1.030 (1.005-1.030); Urine Bilirubin NEGATIVE (Negative); Urine Blood Negative (Negative); Urine Clarity Clear (Clear); Urine Color Light-Yellow (Yellow); Urine Glucose NEGATIVE (Negative); Urine Protein NEGATIVE (Negative); Urine Urobilinogen Normal (Normal)
--- NOTE | 2023-05-02 10:00 | RAD REPORT ---
EXAM DESCRIPTION: RADChest Single View05/02/2023 9:00 am CLINICAL HISTORY: R sided effusion COMPARISON: Chest Single View dated 01/22/2023; Chest Single View dated 01/18/2023; Chest Single View dated 09/13/2022 TECHNIQUE: Portable AP view of the chest. FINDINGS: Right moderate pleural effusion with underlying airspace opacification. Left mild basilar atelectasis. Background chronic interstitial changes, stable. Stable cardiomegaly. No pneumothorax. T he mediastinal contours are unremarkable. IMPRESSION: Right pleural effusion with underlying airspace opacification which may relate to atelec tasis or airspace disease.
--- NOTE | 2023-05-02 10:02 | RAD REPORT ---
EXAM DESCRIPTION: [facility] Lateral Qkkagoiaz38/5/2023 9:03 am CLINICAL HISTORY: R sided effusion COMPARISON: Chest Single View dated 05/02/2023; Thorax W/ Con dated 03/26/2023; Chest Single View date d 01/22/2023; Chest Single View dated 01/18/2023 TECHNIQUE: Lateral decubitus views of both lungs. FINDINGS: Stable cardiomegaly. Moderate right and mild left layering effusions. Some persistent opac ification in the right lower lobe, could relate to the size of effusion or underlying atelectasis. No findings to suggest loculation. IMPRESSION: Moderate right and mild left layering pleural effusions as above.
[2023-05-02] MEDS ORDERED: HYDROCODONE/APAP 7.5/325 MG TAB PO PRN (11:02)
[2023-05-02] MEDS ORDERED: SOTALOL HCL 80 MG TAB PO SCH (11:02)
--- NOTE | 2023-05-02 12:36 | P.CNS ---
Date of Consult: 05/02/23 Reason for Consult: Right-sided pleural effusion Chief Complaint: Abdominal pain History of Present Illness: Kidney 78 years of age well-known to me with a history of COPD and cirrhosis of the liver admitted to the hospital with 3-day history of abdominal pain there is a history of diverticulitis before and has a history of alcoholic cirrhosis was called to evaluate for the right-sided pleural effusion denies any fever or chills active smoker Allergies No Known Drug Allergies Allergy (Verified 05/02/23 08:11) Unknown Home Medications: Carvedilol [Coreg] 1 tab PO BIDWM 11/16/21 Cetirizine HCl [Zyrtec*] 1 tab PO DAILY 11/16/21 Furosemide 1 tab PO DAILY 11/16/21 Levothyroxine Sodium 1 tab PO [id number] 11/16/21 Metformin HCl 1 tab PO BID 11/16/21 Omeprazole 1 tab PO DAILY 11/16/21 Rivaroxaban [Xarelto] 1 tab PO DAILY AT SUPPER 11/16/21 Spironolactone 1 tab PO DAILY 11/16/21 Atorvastatin Calcium [Lipitor*] 10 mg PO BEDTIME 01/22/23 Citalopram [Celexa*] 10 mg PO DAILY 01/22/23 Fluticasone/Salmeterol [Advair 250-50 Diskus] 2 inh IH DAILY 01/22/23 Hydrocodone/Acetaminophen [Hydrocodon-Acetamin 7.5-325/15] 15 ml PO BID PRN 01/22/23 Pantoprazole [Protonix Tab*] 40 mg PO DAILY 01/22/23 glipiZIDE [Glipizide] 10 mg PO BID 01/22/23 Apixaban [Eliquis] 5 mg PO BID 90 Days #180 tab 01/30/23 Furosemide [Lasix*] 40 mg PO DAILY 30 Days #30 tab 01/30/23 Sotalol HCl [Betapace*] 80 mg PO BID 6AM 6PM 90 Days #180 tab 01/30/23 Losartan/Hydrochlorothiazide [Losartan-Hctz 100-25 mg Tab] 25 mg PO DAILY 05/02/23 - Past Medical/Surgical History Diabetic: Yes -: Hypothyroidism -: DM-NIDDM -: AFIB -: HTN -: COPD -: ascites -: Throat cancer -: Chemo/radiation -: Cirrhosis of liver -: Cholecystectomy -: Rt elbow sx - Family History Mother Medical History: Cancer - Social History Smoking Status: Unknown if ever smoked Alcohol use: No CD- Drugs: No Caffeine use: Yes Place of Residence: Home Review of Systems 10-point ROS is otherwise unremarkable General: Weakness Respiratory: Shortness of Breath Gastrointestinal: Abdominal Pain Physical Examination Temp Pulse Resp BP Pulse Ox 97.1 F 98 H 18 114/71 99 05/02/23 12:00 05/02/23 12:00 05/02/23 12:00 05/02/23 12:00 05/02/23 12:00 General: Alert, Mild distress Neck: Supple Respiratory: Clear to auscultation bilaterally Cardiovascular: Edema Gastrointestinal: Normal bowel sounds, Soft and benign, Tenderness (Mild deep tenderness perineum bowel umbilical) Musculoskeletal: No clubbing, No swelling, No contractures, No erythema Laboratory Data (last 24 hrs) 05/02/23 05/02/23 02:33 02:33 WBC 6.20 Hgb 11.6 L Hct 34.4 L Plt Count 146 L Sodium 138 Potassium 4.0 BUN 14 Creatinine 0.88 Glucose 145 H Total Bilirubin 0.6 AST 11 L ALT 12 L Alkaline Phosphatase 58 Lipase 13 - Problems (1) Pleural effusion Current Visit: Yes Status: Acute Plan: Patient is 78 years of age with alcoholic cirrhosis COPD active smoker admitted with abdominal pain with a history of diverticulitis chemistries reviewed no history of diverticulitis on the CT scan probably related to his cirrhosis (2) Abnormal CT scan of lung Current Visit: Yes Status: Acute Plan: Patient has a 1.3 cm left lower lobe solitary pulmonary nodule that needs to be worked up with a PET scan this measures 13 x [address] scan was ordered by Dr. Weldon
--- NOTE | 2023-05-02 16:15 | RAD REPORT ---
EXAM DESCRIPTION: CT - Chest Abdomen Pelvis W Cont - 05/02/2023 6:02 am CLINICAL HISTORY: Dyspnea, Abd Pain COMPARISON: 03/26/2023 and 01/22/2023 TECHNIQUE: CT of the chest, abdomen and pelvis performed following IV administration of iodinated co ntrast. This exam was performed according to our departmental dose-optimization program, which includ es automated exposure control, adjustment of the mA and/or kV according to patient size and/or use of iterative reconstruction technique. FINDINGS: Chest: Thyroid: No abnormalities of the visualized thyroid. Great Vessels: Great vessels have normal anatomic configuration. Thoracic Aorta: Atherosclerotic calcification of the thoracic aorta. Normal caliber. Pulmonary arteries: No filling defects in the pulmonary arteries. Heart: Cardiomegaly. Coronary artery atherosclerosis. Lymph Nodes: No enlarged mediastinal lymph nodes identified. Esophagus: No abnormalities of the esophagus identified Other: No additional findings. Lungs: Stable pulmonary nodules in the left lower lobe, the largest measuring 1.3 cm. Right basilar c ompressive atelectasis. Pleura: Small left pleural effusion. Moderate layering right pleural effusion. No pneumothorax. Trachea/Airways: No abnormalities of the visualized trachea or airways. Abdomen: Liver: Nodular contour of the liver. Gallbladder: Prior cholecystectomy. Spleen, Pancreas, and Adrenal Glands: Fatty replacement of pancreas. The spleen and adrenal glands are unremarkable. Kidneys: The kidneys have normal size and contour without evidence of solid mass or hydronephrosis. Vasculature: Aortoiliac atherosclerosis. IVC is unremarkable. The portal vein is patent. The proxim al visceral and renal arteries are patent. Stomach: The stomach and duodenum have normal course. Other: No free intraperitoneal air. Small amount of free fluid. Pelvis: Bladder: Wall thickening of the urinary bladder. Small bladder diverticulum. Bowel: No dilated loops of large or small bowel. Scattered diverticula colon. Wall thickening of th e sigmoid colon with somewhat nodular appearance. Appendix: Stable caliber of the appendix. Pelvis: Enlarged prostate. Bones: Multilevel endplate spondylosis, facet arthropathy, disc height narrowing. Chronic T12 keyon titus deformity. Osteoarthritic change of the hip. IMPRESSION: 1. Moderate layering right pleural effusion with right basilar compressive atelectasis . 2. Small left pleural effusion. 3. Cardiomegaly with coronary artery atherosclerosis. 4. Nodular contour of the liver. This could be seen with cirrhosis. 5. Wall thickening of the urinary bladder. This could be seen with cystitis or chronic bladder outl et obstruction. 6. Enlarged prostate. 7. Diverticulosis without evidence of acute diverticulitis. 8. Segment wall thickening and somewhat nodular configuration of the sigmoid colon. 9. This could be related to diverticular disease or chronic inflammatory colitis or neoplasm is a c onsideration. Correlation for appropriate colorectal cancer screening history recommended. 10. Stable pulmonary nodules in the left lower lobe, the largest measuring 1.3 cm. Per Fleischner Society Guidelines, consider a non-contrast Chest CT at 3 months, a PET/CT, or tissue sampling. Thes e guidelines do not apply to immunocompromised patients and patients with cancer. Follow up in patien ts with significant comorbidities as clinically warranted. For lung cancer screening, adhere to Lung- RADS guidelines. Reference: Radiology. 2017; 284(1):228-43. Electronically signed by: Cedric Farrar 05/02/2023 4:22 AM CDT Due to temporary technical issues with the PACS/Fluency reporting system, reports are being signed by the in house radiologists without review as a courtesy to insure prompt reporting. The interpreting radiologist is fully responsible for the content of the report.
[2023-05-02] MEDS: METFORMIN HCL 500 MG TAB PO SCH (16:17)
[2023-05-02] MEDS: glipiZIDE 5 MG TAB PO SCH (16:17)
--- NOTE | 2023-05-02 16:58 | EKG ---
Test Date: 2023-05-02 Test Time: 02:27:19 Production Generalist: ELLYN MEASUREMENT RESULTS: Intervals: Rate: 103 PA: QRSD: 142 QT: 424 QTc: 555 [place]: P: PA: QRS: 94 T: -73 INTERPRETIVE STATEMENTS: Atrial fibrillation with premature ventricular or aberrantly conducted complexes Nonspecific intraventricular block T wave abnormality, consider inferolateral ischemia or digitalis effect Abnormal ECG Compared to ECG 09/13/2022 07:47:23 Ventricular premature complex(es) now present T-wave abnormality now present Possible ischemia now present Left bundle-branch block no longer present Electronically Signed On 05-02-23 16:56:06 CDT by Nghia Silverman
[2023-05-02] MEDS: ATORVASTATIN 10 MG TAB PO SCH (20:45)
[2023-05-02] MEDS ORDERED: APIXABAN 5 MG TABLET PO SCH (21:00)
--- NOTE | 2023-05-02 22:11 | CON ---
Date of Consultation: 05/02/2023 Reason For Consultation: Shortness of breath. History Of Present Illness: 78-year-old male, history of atrial fibrillation, congestive heart failu re, hypertension, dyslipidemia, diabetes, cirrhosis presented to the emergency room with s hortness of breath, lower extremity edema. No orthopnea. No nausea, vomiting, or diarrhea. Past Medical History: As outlined above in the HPI. Medications: Refer to reconciliation sheet for detailed list. Allergies: NO KNOWN DRUG ALLERGIES. Family History: No premature coronary artery disease or cancer. Social History: Does not smoke or drink. Does not use any drugs. Review of Systems: All systems reviewed and they were negative except as mentioned in the HPI. Physical Examination: Vital Signs: Reviewed. Head and Neck: Pupils are equal, reactive to light. Intact eye movements. No cervical lymphadenopa thy. Neck is supple. Thyroid is not enlarged. Lungs: Decreased breathing sounds with thin crackles in the bases. No accessory muscle use or muscl e retraction. Heart: Irregular. No extra sounds. Abdomen: Soft, nontender. Bowel sounds positive. No organomegaly. No masses or hernia. No rigidi ty or rebound. Extremities: No clubbing, cyanosis. Trace edema. Neurologic: Alert, awake, oriented x3. No acute focal deficits appreciated. Lymph nodes: No cervical or axillary lymphadenopathy. Investigations: BUN is 14, creatinine 0.88. Troponin is negative. NT-proBNP is 4301. Chest x-ray: There is pleural effusion. Assessment/recommendation: 1.Acute on chronic systolic heart failure exacerbation. Recommend IV diuresis, Lasix 40 mg IV q.12 hours. Monitor BUN, creatinine, electrolytes. Obtain an echo if it was not done recently. 2.Atrial fibrillation. Heart rate appears to be controlled. Recommend metoprolol 25 mg twice a day and Eliquis 5 mg twice a day. 3.Dyslipidemia. Continue statin. SR/MODL Voice ID: [id number] Report ID: [id number]
[2023-05-03] MEDS: LEVOTHYROXINE SOD 0.112 MG TAB PO SCH (05:29)
[2023-05-03 06:31] LABS: Absolute Lymphocytes (CBC) 1.1 K/uL (0.7-4.9); Lymphocytes % 17.3 % (15.3-44.8); MCV 95.1 fL (80-100); MPV 7.6 fL (7.6-11.3); Platelets 143 thou/uL (152-406); RBC Red Blood Cell Count 3.57 M/uL (4.33-5.43)
[2023-05-03 06:32] LABS: RBC Red Blood Cell Count 3.61 M/uL (4.33-5.43)
[2023-05-03 06:34] LABS: Protime INR 1.56
[2023-05-03 06:47] LABS: Magnesium 1.9 mg/dL (1.6-2.4); Phosphorus 4.6 mg/dL (2.5-4.9); Potassium 4.5 mEq/L (3.5-5.1); Troponin High Sensitivity 23.2 pg/mL (<58.9)
[2023-05-03] MEDS: METFORMIN HCL 500 MG TAB PO SCH ×2 (08:00→13:25)
--- NOTE | 2023-05-03 08:25 | RAD REPORT ---
EXAM DESCRIPTION: RADChest Single View05/03/2023 7:04 am CLINICAL HISTORY: pneumonia COMPARISON: Chest Single View dated 05/02/2023; Abdomen 1 View ([facility]) dated 01/25/2023; Chest Single Vi ew dated 01/22/2023; Chest Single View dated 01/18/2023 TECHNIQUE: Portable AP view of the chest. FINDINGS: Bilateral pleural effusions larger on the right, relatively stable. Progressive central in terstitial prominence and hazy opacification. No pneumothorax. Stable cardiomegaly. Mediastinal cont ours are unremarkable. IMPRESSION: Progressive central interstitial prominence and hazy airspace opacification, suggestive of congestive heart failure or early pulmonary edema. Stable bilateral effusions.
[2023-05-03] MEDS: HOME MED 1 EA UNK (Fluticasone/Salmeterol [Advair 250-50 Diskus] Blst.W.Dev) IH SCH (09:00)
[2023-05-03] MEDS ORDERED: HOME MED 1 EA UNK (Omeprazole [Omeprazole] 20 MG Tablet.Dr) PO SCH (09:00)
[2023-05-03] MEDS: LOSARTAN/HCTZ 50-12.5 PO SCH (11:26)
[2023-05-03] MEDS: SPIRONOLACTONE 25 MG TABLET PO SCH (11:26)
[2023-05-03] MEDS: CETIRIZINE HCL 5 MG TABLET PO SCH (11:26)
[2023-05-03] MEDS: FUROSEMIDE 40 MG TABLET PO SCH (11:27)
[2023-05-03] MEDS: CITALOPRAM 10 MG TABLET PO SCH (11:27)
[2023-05-03] MEDS: PANTOPRAZOLE 40MG TABLET PO SCH (11:27)
[2023-05-03] MEDS: glipiZIDE 5 MG TAB PO SCH ×2 (11:28→16:30)
--- NOTE | 2023-05-03 12:26 | ECHO ---
HEIGHT: 5 ft 6 in WEIGHT: 185 lb 0 oz DATE OF STUDY: 05/03/[address]: Familia Harrington MD 2-DIMENSIONAL: YES M.MODE: YES DOPPLER: YES COLOR FLOW: YES TDS: PORTABLE: YES DEFINITY: BUBBLE STUDY: DIAGNOSIS: ABNORMAL HEART SOUNDS, CONGESTIVE HEART FAILURE CARDIAC HISTORY: CATHERIZATION: YES SURGERY: NO PROSTHETIC VALVE: NO PACEMAKER: NO MEASUREMENTS (cm) DIASTOLIC (NORMALS) SYSTOLIC (NORMALS) IVSd 1.3 (0.6-1.2) LA Diam 5.8 (1.9-4.0) LVEF 30-35% LVIDd 6.2 (3.5-5.7) LVIDs 5.6 (2.0-3.5) %FS 10% LVPWd 1.3 (0.6-1.2) Ao Diam 3.1 (2.0-3.7) 2 DIMENSIONAL ASSESSMENT: RIGHT ATRIUM: NORMAL LEFT ATRIUM: SEVERELY DILATED RIGHT VENTRICLE: NORMAL LEFT VENTRICLE: DEPRESSED EJECTION FRACTION TRICUSPID VALVE: TRICUSPID REGURGITATION MITRAL VALVE: MODERATE MITRAL REGURGITATION PULMONIC VALVE: NORMAL AORTIC VALVE: NORMAL PERICARDIAL EFFUSION: NONE AORTIC ROOT: NORMAL LEFT VENTRICULAR WALL MOTION: MODERATE GLOBAL HYPOKINESIS DOPPLER/COLOR FLOW: SEE BELOW COMMENTS: 1. MODERATE DEPRESSED LEFT VENTRICULAR EJECTION FRACTION 30-35% 2. MODERATE GLOBAL HYPOKINESIS 3. SEVERE DIASTOLIC DYSFUNCTION 4. SEVERELY ENLARGED LEFT ATRIUM 5. MODERATE TO SEVERE TRICUSPID REGURGITATION 6. SEVERE PULMONARY HYPERTENSION WITH RIGHT VENTRICULAR SYSTOLIC PRESSURE GREATER THAN 60 mmHg TECHNOLOGIST: AYDEN SPAULDING
--- NOTE | 2023-05-03 13:46 | RAD REPORT ---
EXAM DESCRIPTION: US - Thoracentesis w/ US Guide - 05/03/2023 10:32 am CLINICAL HISTORY: Pleural effusion. pleural effusion COMPARISON: Chest Single View dated 05/03/2023; Chest Lateral Decubitus dated 05/02/2023 FINDINGS: Preoperative diagnosis: Right pleural effusion Post operative diagnosis: Same Conscious Sedation: None. Estimated blood loss: None Specimens:A small volume of fluid was sent for requested lab studies. The patient was placed in the upright recumbent position and the right posterior chest wall was prepp ed and draped in the usual sterile fashion. 1% Lidocaine was infiltrated into the soft tissues for l ocal anesthesia. Under sonographic guidance, a thoracentesis needle and 6 Turkish catheter was advanc ed into the right pleural space. Approximately 1.2 liters of yellow clear fluid was aspirated. Sample s were sent to pathology for requested analysis. The patient tolerated the procedure without immediat e complication and transferred to the floor in stable condition. IMPRESSION: Successful ultrasound-guided right thoracentesis as detailed.
[2023-05-03 14:55] LABS: Body Fluid WBC 227 /mm^3
[2023-05-03] MEDS: ATORVASTATIN 10 MG TAB PO SCH (20:22)
[2023-05-03] MEDS: APIXABAN 5 MG TABLET PO SCH (20:23)
[2023-05-03 20:34] LABS: Appearance SLT. TURBID (CLEAR); Body Fluid Source PLEURAL; Color of fluid Yellow (COLORLESS)
[2023-05-04] MEDS ORDERED: METOPROLOL TARTRATE 5 MG/5 ML INJ IV PRN (02:59)
[2023-05-04] MEDS: LEVOTHYROXINE SOD 0.112 MG TAB PO SCH (05:58)
[2023-05-04 06:37] LABS: Absolute Lymphocytes (CBC) 1.2 K/uL (0.7-4.9); Hematocrit 32.9 % (39.6-49.0); Lymphocytes % 19.5 % (15.3-44.8); MCV 94.7 fL (80-100); MPV 7.6 fL (7.6-11.3); Platelets 139 thou/uL (152-406); RBC Red Blood Cell Count 3.47 M/uL (4.33-5.43)
[2023-05-04 06:50] LABS: Magnesium 1.9 mg/dL (1.6-2.4); Phosphorus 3.9 mg/dL (2.5-4.9); Potassium 4.3 mEq/L (3.5-5.1)
[2023-05-04] MEDS: METFORMIN HCL 500 MG TAB PO SCH (08:00)
[2023-05-04] MEDS: HOME MED 1 EA UNK (Fluticasone/Salmeterol [Advair 250-50 Diskus] Blst.W.Dev) IH SCH (08:45)
[2023-05-04] MEDS: LOSARTAN/HCTZ 50-12.5 PO SCH (08:53)
[2023-05-04] MEDS: FUROSEMIDE 40 MG TABLET PO SCH (08:54)
[2023-05-04] MEDS: CETIRIZINE HCL 5 MG TABLET PO SCH (08:54)
[2023-05-04] MEDS: PANTOPRAZOLE 40MG TABLET PO SCH (08:54)
[2023-05-04] MEDS: SPIRONOLACTONE 25 MG TABLET PO SCH (08:54)
[2023-05-04] MEDS: CITALOPRAM 10 MG TABLET PO SCH (08:54)
[2023-05-04] MEDS: APIXABAN 5 MG TABLET PO SCH (08:54)
[2023-05-04] MEDS: glipiZIDE 5 MG TAB PO SCH (08:55)
[2023-05-04 09:50] VITALS: O2SAT 93
--- NOTE | 2023-05-04 12:01 | RAD REPORT ---
EXAM DESCRIPTION: RAD - Chest Single View - 05/04/2023 11:57 am CLINICAL HISTORY: s/p thoracentesis 05/03 Chest pain. COMPARISON: Chest Single View dated 05/03/2023; Chest Single View dated 05/02/2023; Abdomen 1 View ([facility]) dated 01/25/2023; Chest Single View dated 01/22/2023 FINDINGS: Portable technique limits examination quality. The lungs are grossly clear. Trace right pleural effusion. No pneumothorax. Prominent cardiomegaly.
[2023-05-04 12:23] VITALS: BP 126/55; TEMP 97
[2023-05-07 20:00] LABS: LD, PLEURAL FLUID 63 U/L; TOTAL PROTEIN, PLEURAL FLUID <3.0 g/dL
[2023-05-08 20:12] LABS: ALBUMIN, PLEURAL FLUID 1.4 g/dL
== END 2023-05-04 14:47 | disposition home or self-care (01) | DRG 291 ==
LOC: ER 02:13 → 4TH 05:56
PROVIDERS: ADMIT Hospitalist; ATTEND Hospitalist
DX: I11.0 Hypertensive heart disease with heart failure (principal); I50.23 Acute on chronic systolic (congestive) heart failure; J96.01 Acute respiratory failure with hypoxia; I48.91 Unspecified atrial fibrillation; E11.9 Type 2 diabetes mellitus without complications; E03.9 Hypothyroidism, unspecified; J44.9 Chronic obstructive pulmonary disease, unspecified; I49.3 Ventricular premature depolarization; I45.4 Nonspecific intraventricular block; K70.30 Alcoholic cirrhosis of liver without ascites; E78.5 Hyperlipidemia, unspecified; D69.6 Thrombocytopenia, unspecified; C32.9 Malignant neoplasm of larynx, unspecified; D64.9 Anemia, unspecified; Z79.4 Long term (current) use of insulin; Z90.49 Acquired absence of other specified parts of digestive tract; Z79.84 Long term (current) use of oral hypoglycemic drugs; Z79.02 Long term (current) use of antithrombotics/antiplatelets; Z92.21 Personal history of antineoplastic chemotherapy; Z79.01 Long term (current) use of anticoagulants; Z79.890 Hormone replacement therapy; Z79.899 Other long term (current) drug therapy
CPT/HCPCS: 32555; 36415; 71045; 71046; 71260; 74177; 80048; 80053; 80061; 81003; 82042; 82945; 82947; 83036; 83615; 83690; 83735; 83880; 84100; 84157; 84484; 85025; 85044; 85610; 85730; 86140; 87070; 89050; 93005; 93306; 96374; 96375; 99285; J1940; J2405; Q9967

== ENCOUNTER 2023-06-23 07:44 | Inpatient (IN) | payer OTHER ==
--- OUTSIDE RECORDS SUMMARY | 2023-06-23 07:53 | XMS REPORT | Continuity of Care Document ---
:1945 Author Organization [facility] t Address [address] [facility] [place] [address] Care Team Providers Name Role Phone Raymundo Marie DO Primary Care Physician RAYMUNDO MARIE Attending Clinician Unavailable EDVIN MURO Attending Clinician Unavailable FLORI ROMERO Attending Clinician Unavailable LAB90 Attending Clinician Unavailable Alonso Uribe MD Attending Clinician [phone] ALONSO URIBE Attending Clinician Unavailable ERIKA SUAZO Attending Clinician Unavailable MICHELLE GARRETT Attending Clinician Unavailable Dejon Esteban MD Attending Clinician Oral Murillo Attending Clinician FLOR LU Attending Clinician Unavailable GENEVA DOBSON Attending Clinician Unavailable INGRIS FARR Attending Clinician Unavailable 39, HOLTER Attending Clinician Unavailable Katiuska Gandhi MD Attending Clinician [phone] Coral Grant MD Attending Clinician [phone] Girish Mcmullen MD Attending Clinician [phone] LAUREEN MENON Attending Clinician Unavailable Chapin Peraza MD Attending Clinician Angelique Spann DO Attending Clinician [...] Unavailable ALONSO URIBE Admitting Clinician Unavailable CORAL GRANT Admitting Clinician Unavailable ANGELIQUE SPANN Admitting Clinician Unavailable GIRISH CORNELL Admitting Clinician Unavailable Payers Payer Name Policy Type Policy Number Effective Date Expiration Date S jean-pierre [facility] TXP 7 [id number] 2021 CLASSIC NO PREMIUM 00:00:00 R2T Problems Condition Condition Condition Status Onset Resolution Last Treating Co mments Source Name Details Category Date Date Treatment Clinician Date Pleural Pleural Disease Active 2022-07 Anai effusion effusion 1-13 Seybol d due to CHF due to CHF 00:00: - (congestiv (congestiv 00 Ex terna e heart e heart l failure) failure) (multi (multi HCC) HCC) Afib Afib Disease Recurre 2022-[address] [facility] History of History of Disease Active 2022-07 Gaby elsey cardiac cardiac 0-23 Seybold radiofrequ radiofrequ 00:00: - ency ency 00 Externa ablation ablation l Atrial Atrial Disease Recurre 2022-[address] fibrillati fibrillati nce 0-17 Stella kes on on 00:00: Medical 00 Center History of History of Disease Active Gaby elsey diverticul diverticul 8-09 Se ybold itis itis 00:00: - 00 Externa l Tense Tense Disease Active Methodi ascites ascites 7-[facility]osp[facility] 00 l Anxiety Anxiety Disease Active Anai 7-06 Seybold 00:00: - 00 Externa l History of History of Disease Active Gaby kimbrough cardiovers cardiovers 01-31 Se ybold ion ion 00:00: - 00 Externa l 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 00:00: - tricuspid tricuspid 00 Exte rna valves valves l Pleural Pleural Disease Active Methodi effusion, effusion, 01-31 st bilateral bilateral 00:00: Hosp yaya 00 l Diverticul Diverticul Disease Active M ethodi itis itis 01-31 [facility] 00[facility]: Hospita 00 l Chronic Chronic Disease Active Anai cough cough 2-24 Seybold 00:00: - 00 Externa l 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 00:00: - with with 00 Externa peripheral peripheral l vascular vascular disease disease (multi (multi HCC) HCC) 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 1-29 Se ybold to to 00:00: - conditions conditions 00 Ex terna classified classified l elsewhere elsewhere (multi (multi HCC) HCC) Well adult Well adult Disease Active Gaby kimbrough exam exam 9-29 Seybold 00:00: - 00 Externa l Current [...] Active Rakanse y ulcer of ulcer of 4-29 Seybol d toe of toe of 00:00: - right foot right foot 00 Ex terna associated associated l with type with type 2 diabetes 2 diabetes mellitus, mellitus, limited to limited to breakdown breakdown of skin of skin (multi (multi HCC) HCC) 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 [...] heart heart 00 Externa failure failure l (multi (multi HCC) HCC) Pulmonary Pulmonary Disease Active Rakan maya hypertensi hypertensi 4-05 Se ybold on (multi on (multi 00:00: - HCC) HCC) 00 Externa l 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-05 Seybol d mellitus mellitus 00:00: - with with 00 Externa hyperlipid hyperlipid l emia emia (multi (multi HCC) HCC) Fatty Fatty Disease Active Anai liver liver 4-05 Seybold 00:00: - 00 Externa l 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-05 Seybol d mellitus mellitus 00:00: with foot with foot 00 ulcer, ulcer, without without long-term long-term current current use of use of insulin insulin Hypercoagu Hypercoagu Disease Active Gaby kaylan lable lable 3- Seybold state due state due 00:00: - 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 00 Exte rna fibrillati fibrillati l on (multi on (multi HCC) HCC) 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 00:00: - failure, failure, 00 Auditing Clerk a unspecifie unspecifie l d heart d heart failure failure type type (multi (multi HCC) HCC) Hypercoagu Hypercoagu Disease Active Gaby yongy lable lable 3- Seybold state due state due 00:00: - 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 00 Exte rna fibrillati fibrillati l on on 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 l (multi (multi HCC) HCC) Obesity Obesity Disease Active Anai (BMI (BMI 2-18 Seybold 30.0-34.9) 30.0-34.9) 00:00: - 00 Externa l 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 Seybol d 00:00: 00 Other Other Disease Active Anai cirrhosis cirrhosis 2-18 Seyb 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 liver 00:00: - (multi (multi 00 Externa HCC) HCC) l Sleep Sleep Disease Active Anai apnea apnea Seybold - Externa l Hypertyros Hypertyros Disease Active Gaby elsey inemia inemia Seybold Hypertensi Hypertensi Disease Active Gaby elsey on on Seybold - Externa l Hypothyroi Hypothyroi Disease Active Gaby elsey dism dism Seybold - Externa l Diabetes Diabetes Disease Active Kelse y Seybold Acquired Acquired Disease Active Kelse y hypothyroi hypothyroi Se ybold dism dism - Externa l Allergies, Adverse Reactions, Alerts Allergy Allergy Status Severity Reaction(s) Onset Inactive Treating Comm ents Source Name Type Date Date Clinician NO KNOWN Allergy Active [facility] Social History Social Habit Start Date Stop Date Quantity Comments Source History [facility] Gender identity Anai Se ybold - External Sexual orientation [facility] Alcohol intake 2023-06-06 2023-06-06 Ex-drinker [facility] Jimena es 00:00:00 00:00:00 (finding) Medical Center History of Social 2023-06-06 2023-06-[address] [facility] function 00:00:00 00:00:00 Medical Center Exposure to 2023-05-04 2023-05-14 Not sure [facility] St Namshi SARS-CoV-2 (event) 00:00:00 05:40:00 Medica l Center History SDOH 2023-05-14 2023-05-[address] [facility] Transport Med 00:00:00 00:00:[address] History SDOH 2023-05-14 2023-05-[address] [facility] Housing Unable to 00:00:00 00:00:00 Medical Center Pay History SDOH 2023-05-14 2023-05-[address] [facility] Housing Places 00:00:00 00:00:00 Medical nter Lived [facility] 2023-05-14 2023-05-[address] [facility] Housing Homeless 00:00:00 00:00:00 Medical Center Last Year Tobacco use and 2023-05-14 2023-05-[address] [facility] exposure [facility] 00:00:00 non-user Medical Center Alcohol Comment 2023-02-16 2023-02-16 STOPPED 5 YEARS Meth odist 00:00:00 00:00:00 AGO Hospital Tobacco Comment 2023-02-01 2023-02-01 Pt stopped [facility] 00:[facility] 00:00:00 smoking Hospital cigarettes September 2022 Cigarettes smoked 2022-10-31 2022-10-31 Anai Nieto - current (pack per 00:00:00 00:00:00 Externa l day) - Reported Cigarette 2022-10-31 2022-10-31 Anai Nieto - pack-years 00:00:00 00:00:00 External History of tobacco 2022-09-[address] [facility] use 00:00:00 Medical Center Education - What is 2021-09-15 2021-09-15 5th grade Elda Nieto - the highest level 00:00:00 00:00:00 Externa l of school you have completed or the highest degree you have received? Sex Ass[birth year] [employer] [place] 00:00:00 00:[facility]:00 [facility] Center Smoking Status Start Date Stop Date Source Ex-smoker 2022-10-31 00:00:00 2022-10-31 00:00:00 Anai pang - External Smokes tobacco daily 2021-09-15 00:00:00 Anai Nieto - External Medications Ordered Filled Start Stop Current Ordering Indication Dosage Frequency Signature Comments Components Source Medication Medication Date Date Medication? Clinician (SIG) Name Name Spironolact 2022-07 Yes [id number] 25mg Take 1 Anai one 25 MG 1-13 tablet (25 Seyb old oral Tablet 00:00: mg total) - 00 by mouth 2 Externa times l daily. Apixaban 2022-07- Yes [id number] 5mg Take 1 Anai (Eliquis) 5 08-10 [id number] tablet (5 Seybold MG oral 00:00: 05:59 mg total) - Tablet 00 :00 by mouth 2 Externa times l daily. Citalopram 2022-07 Yes [id number] 10mg Take 1 K elsey Hydrobromid -12 tablet (10 Se ybold e 10 MG 00:00: mg total) - oral Tablet 00 by mouth Exte rna daily. l Spironolact 2022-07- No [id number] 25mg Take 1 Anai one 25 MG -12 06-10 tablet (25 Sey bold oral Tablet 00:00: 00:00 mg total) - 00 :00 by mouth Externa daily. l metFORMIN 2022-07 Yes 1000mg Take [address] [facility] (GLUCOPHAGE 1-09 tablet [facility] ) 1000 MG 17:26: (1,000 mg Med ical tablet 24 total) by Center mouth 2 (two) times daily with breakfast and dinner. levothyroxi 2022-07 Yes 125ug Take [address] ne 1-09 tablet [facility] (SYNTHROID, 17:26: (125 mcg Me dical LEVOTHROID) 24 total) by [facility] ter 125 MCG mouth tablet Every morning on an empty stomach. glipiZIDE 2022-07 Yes 10mg Take [address] (GLUCOTROL) 1-09 tablet (10 Stella kes 10 MG 17:26: mg total) Medical tablet 24 by mouth 2 Center (two) times daily before meals. citalopram 2022-07 Yes 10mg QD Take 1 [facility] (CeleXA) 10 1-09 tablet (10 Stella kes MG tablet 17:26: mg total) Med ical 24 by mouth Center daily. spironolact 2022-07 Yes 25mg QD Take [address] one 1-09 tablet (25 [facility] (ALDACTONE) 17:26: mg total) M edical 25 MG 24 by mouth Center tablet daily. fluticasone 2022-07 Yes 1{puff} Inhale [address] propion-rafael 1-09 puff by Lukes meteroL 17:26: mouth via Medic al (ADVAIR) 24 inhaler Center 250-50 every 12 mcg/dose (twelve) diskus hours. inhaler apixaban 2022-07 Yes 5mg Q.5D Take [address] (ELIQUIS) 5 -09 tablet (5 Jimena es mg Tab 17:26: mg total) Medica l tablet 24 by mouth 2 Center (two) times daily. furosemide 2022-07 Yes 40mg QD Take 1 [facility] (LASIX) 40 -09 tablet (40 Jimena es MG tablet 17:26: mg total) Med ical 24 by mouth Center daily. omeprazole 2022-07 Yes 40mg QD Take 1 [facility] (PriLOSEC) -09 capsule [facility] 40 MG 17:26: (40 mg Medical capsule 24 total) by Center mouth daily. atorvastati 2022-07 Yes 10mg QD Take [address] n (LIPITOR) 08-06 tablet (10 Stella kes 10 MG 17:26: mg total) Medical tablet 24 by mouth Center daily. Amiodarone 2022-07 Yes 200mg Take 1 Samia ey HCl 200 MG 0-23 tablet Seybold oral Tablet 11:43: (200 mg - 00 total) by Externa mouth l daily. Amiodarone 2022-07 Yes 200mg Take 1 Saima ey HCl 200 MG 0-23 tablet Seybold oral Tablet 11:43: (200 mg - 00 total) by Externa mouth l daily. Carvedilol 2022-07 Yes [id number] 12.5mg Take 1 Anai 12.5 MG 0-23 tablet Seybold oral Tablet 00:00: (12.5 mg - 00 total) by Externa mouth 2 l times daily. Carvedilol 2022-07 Yes [id number] 12.5mg Take 1 Anai 12.5 MG 0-23 tablet Seybold oral Tablet 00:00: (12.5 mg - 00 total) by Externa mouth 2 l times daily. metFORMIN 2022-07 Yes 1000mg Take [address] [facility] (GLUCOPHAGE 0-19 tablet [facility] ) 1000 MG 15:42: (1,000 mg Med ical tablet 16 total) by Center mouth 2 (two) times daily with breakfast and dinner. levothyroxi 2022-07 Yes 125ug Take [address] [facility] ne 0-19 tablet [facility] (SYNTHROID, 15:42: (125 mcg Me dical LEVOTHROID) 16 total) by [facility] ter 125 MCG mouth tablet Every morning on an empty stomach. glipiZIDE 2022-07 Yes 10mg Take [address] (GLUCOTROL) 0-19 tablet (10 Stella kes 10 MG 15:42: mg total) Medical tablet 16 by mouth 2 Center (two) times daily before meals. citalopram 2022-07 Yes 10mg QD Take 1 [facility] (CeleXA) 10 0-19 tablet (10 Stella kes MG tablet 15:42: mg total) Med ical 16 by mouth Center daily. spironolact 2022-07 Yes 25mg QD Take [address] one 0-19 tablet (25 [facility] (ALDACTONE) 15:42: mg total) M edical 25 MG 16 by mouth Center tablet daily. fluticasone 2022-07 Yes 1{puff} Inhale [address] propion-rafael 0-19 puff by Lukes meteroL 15:42: mouth via Medic al (ADVAIR) 16 inhaler Center 250-50 every 12 mcg/dose (twelve) diskus hours. inhaler apixaban 2022-07 Yes 5mg Q.5D Take [address] (Eliquis) 5 0-19 tablet (5 Jimena es mg Tab 15:42: mg total) Medica l tablet 16 by mouth 2 Center (two) times daily. furosemide 2022-07 Yes 40mg QD Take 1 [facility] (LASIX) 40 0-19 tablet (40 Jimena es MG tablet 15:42: mg total) Med ical 16 by mouth Center daily. omeprazole 2022-07 Yes 40mg QD Take 1 [facility] (PriLOSEC) 0-19 capsule [facility] 40 MG 15:42: (40 mg Medical capsule 16 total) by Center mouth daily. atorvastati 2022-07 Yes 10mg QD Take [address] n (LIPITOR) 0-19 tablet (10 Stella kes 10 MG 15:42: mg total) Medical tablet 16 by mouth Center daily. carvediloL 2022-07 6.25mg Take [address] (COREG) 0-19 10-19 tablet [facility] 6.25 MG 13:57: 00:00 (6.25 mg Medic al tablet 43 :00 total) by Center mouth 2 (two) times daily with breakfast and dinner. losartan 2022-07- No 25mg QD Take [address] (COZAAR) 25 0-19 10-19 tablet (25 L ukes MG tablet 13:57: 00:00 mg total) Me dical 43 :00 by mouth Center daily. carvediloL 2022-07- No 6.25mg Take [address] (COREG) 0-19 10-19 tablet [facility] 6.25 MG 13:57: 00:00 (6.25 mg Medic al tablet 43 :00 total) by Center mouth 2 (two) times daily with breakfast and dinner. losartan 2022-07 No 25mg QD Take [address] (COZAAR) 25 0-19 10-19 tablet (25 L ukes MG tablet 13:57: 00:00 mg total) Me dical 43 :00 by mouth Center daily. carvediloL 2022-07 Yes 12.5mg Take [address] (COREG) 0-19 tablets [facility]ukes 6.25 MG 00:00: (12.5 mg Medica l tablet 00 total) by Center mouth 2 (two) times daily with breakfast and dinner. carvediloL 2022-07 Yes 12.5mg Take [address] (COREG) 0-19 tablets [facility] 6.25 MG 00:00: (12.5 mg Medica l tablet 00 total) by Center mouth 2 (two) times daily with breakfast and dinner. amiodarone 2022-07- No Take [address] [facility] (PACERONE) 0-19 11-25 tablet [facility] 200 MG 00:00: 23:59 (200 mg Medical tablet 00 :00 total) by Center mouth 2 (two) times daily for 7 days, THEN 1 tablet (200 mg total) daily for 30 days. amiodarone 2022-07- Yes Take [address] [facility] (PACERONE) 0-19 11-25 tablet [facility] 200 MG 00:00: 23:59 (200 mg Medical tablet 00 :00 total) by Center mouth 2 (two) times daily for 7 days, THEN 1 tablet (200 mg total) daily for 30 days. Carvedilol 2022- No 6.25mg Take 1 Ke lsey 6.25 MG 9-27 10-23 tablet Seybold oral Tablet 00:00: 00:00 (6.25 mg - 00 :00 total) by Externa mouth 2 l times daily. Carvedilol 0 3- No 6.25mg Take 1 Ke lsey 6.25 MG 9-27 10-23 tablet Seybold oral Tablet 00:00: 00:00 (6.25 mg - 00 :00 total) by Externa mouth 2 l times daily. glipiZIDE 0 Yes [id number] 10mg Take 1 Ke lsey 10 MG oral 9-13 tablet (10 Sey bold Tablet 00:00: mg total) - 00 by mouth Externa daily l (before a meal). FLUTICASONE 0 Yes [id number] 50ug Use 1 K elsey PROPIONATE, 9-13 spray (50 Sey bold NASAL, 50 00:00: mcg total) - MCG/ACT 00 in each Externa nasal nostril l Suspension daily. glipiZIDE 0 Yes [id number] 10mg Take 1 Ke lsey 10 MG oral 9-13 tablet (10 Sey bold Tablet 00:00: mg total) - 00 by mouth Externa daily l (before a meal). FLUTICASONE 0 Yes [id number] 50ug Use 1 K elsey PROPIONATE, 9-13 spray (50 Sey bold NASAL, 50 00:00: mcg total) - MCG/ACT 00 in each Externa nasal nostril l Suspension daily. glipiZIDE 0 Yes [id number] 10mg Take 1 Ke lsey 10 MG oral 9-13 tablet (10 Sey bold Tablet 00:00: mg total) - 00 by mouth Externa daily l (before a meal). FLUTICASONE 0 Yes [id number] 50ug Use 1 K elsey PROPIONATE, 9-13 spray (50 Sey bold NASAL, 50 00:00: mcg total) - MCG/ACT 00 in each Externa nasal nostril l Suspension daily. glipiZIDE 0 Yes [id number] 10mg Take 1 Ke lsey 10 MG oral 9-13 tablet (10 Sey bold Tablet 00:00: mg total) - 00 by mouth Externa daily l (before a meal). FLUTICASONE 2022-0 Yes [id number] 50ug Use 1 K elsey PROPIONATE, 9-13 spray (50 Sey bold NASAL, 50 00:00: mcg total) - MCG/ACT 00 in each Externa nasal nostril l Suspension daily. Omeprazole 2022-0 Yes [id number] 40mg TAKE 1 Anai 40 MG oral 9-12 CAPSULE(40 Sey bold Delayed 00:00: MG) BY - Release 00 MOUTH Externa Capsule DAILY l Omeprazole 2022-0 Yes [id number] 40mg TAKE 1 Anai 40 MG oral 9-12 CAPSULE(40 Sey bold Delayed 00:00: MG) BY - Release 00 MOUTH Externa Capsule DAILY l Omeprazole 2022-0 Yes [id number] 40mg TAKE 1 Anai 40 MG oral 9-12 CAPSULE(40 Sey bold Delayed 00:00: MG) BY - Release 00 MOUTH Externa Capsule DAILY l Omeprazole 2022-0 Yes [id number] 40mg TAKE 1 Anai 40 MG oral 9-12 CAPSULE(40 Sey bold Delayed 00:00: MG) BY - Release 00 MOUTH Externa Capsule DAILY l Losartan 2022- Yes 25mg Take 1 Anai Potassium 9-06 12-06 tablet (25 Sey bold 25 MG oral 00:00: 05:59 mg total) - Tablet 00 :00 by mouth Externa every l morning. Losartan 2022- No 25mg Take 1 Anai Potassium 9-06 10-23 tablet (25 Sey bold 25 MG oral 00:00: 00:00 mg total) - Tablet 00 :00 by mouth Externa every l morning. Losartan 0 2022- No 25mg Take 1 Anai Potassium 9-06 10-23 tablet (25 Sey bold 25 MG oral 00:00: 00:00 mg total) - Tablet 00 :00 by mouth Externa every l morning. Fluocinonid Yes APPLY Kelse y e 0.05 % 9-03 TOPICALLY Seybol d apply 00:00: TO THE - externally 00 AFFECTED Exter na Cream AREA TWICE l DAILY Fluocinonid 0 Yes APPLY Kelse y e 0.05 % 9-03 TOPICALLY Seybol d apply 00:00: TO THE - externally 00 AFFECTED Exter na Cream AREA TWICE l DAILY Fluocinonid 0 Yes APPLY Kelse y e 0.05 % 9-03 TOPICALLY Seybol d apply 00:00: TO THE - externally 00 AFFECTED Exter na Cream AREA TWICE l DAILY Fluocinonid Yes APPLY Kelse y e 0.05 % 03-31 TOPICALLY Seybol d apply 00:00: TO THE - externally 00 AFFECTED Exter na Cream AREA TWICE l DAILY glipiZIDE 2022- No [id number] 10mg TAKE 1 K elsey 10 MG oral 03-18 TABLET(10 Sey bold Tablet 00:00: 00:00 MG) BY - 00 :00 MOUTH Externa TWICE l DAILY Levothyroxi Yes [id number] 125ug Take 1 Anai ne Sodium 8-10 tablet Seybold 125 MCG 00:00: (125 mcg - oral Tablet 00 total) by Ext lalitha mouth l daily Levothyroxi Yes [id number] 125ug Take 1 Anai ne Sodium 8-10 tablet Seybold 125 MCG 00:00: (125 mcg - oral Tablet 00 total) by Ext lalitha mouth l daily Levothyroxi Yes [id number] 125ug Take 1 Anai ne Sodium 8-10 tablet Seybold 125 MCG 00:00: (125 mcg - oral Tablet 00 total) by Ext lalitha mouth l daily Levothyroxi Yes [id number] 125ug Take 1 Anai ne Sodium 8-10 tablet Seybold 125 MCG 00:00: (125 mcg - oral Tablet 00 total) by Ext lalitha mouth l daily Omeprazole 0 Yes every 24 Rakan sey 20 MG oral 8- hours Seybold Delayed 14:33: - Release 07 Externa Capsule l Apixaban 2022- No [id number] 5mg Take 1 K elsey (Eliquis) 5 02-26- tablet (5 Se ybold MG oral 00:00: 00:00 mg total) - Tablet 00 :00 by mouth 2 Externa times l daily Apixaban 2022- No [id number] 5mg Take 1 K elsey (Eliquis) 5 02-26- tablet (5 Se ybold MG oral 00:00: 04:59 mg total) - Tablet 00 :00 by mouth 2 Externa times l daily Apixaban 2022- No [id number] 5mg Take 1 K elsey (Eliquis) 5 02-26 tablet (5 Se ybold MG oral 00:00: 04:59 mg total) - Tablet 00 :00 by mouth 2 Externa times l daily Sotalol HCl 2022-0 2022- No [id number] 80mg Take 1 Anai 80 MG oral 02-26 tablet (80 Se ybold Tablet 00:00: 04:59 mg total) - 00 :00 by mouth 2 Externa times l daily Apixaban 2022-0 2022- No [id number] 5mg Take 1 K elsey (Eliquis) 5 02-26 tablet (5 Se ybold MG oral 00:00: 04:59 mg total) - Tablet 00 :00 by mouth 2 Externa times l daily Sotalol HCl 2022-0 2022- No [id number] 80mg Take 1 Anai 80 MG oral 02-26 tablet (80 Se ybold Tablet 00:00: 04:59 mg total) - 00 :00 by mouth 2 Externa times l daily Apixaban 2022-0 2022- No [id number] 5mg Take 1 K elsey (Eliquis) 5 02-26 tablet (5 Se ybold MG oral 00:00: 04:59 mg total) - Tablet 00 :00 by mouth 2 Externa times l daily Sotalol HCl 2022-0 2022- No [id number] 80mg Take 1 Anai 80 MG oral 02-26 tablet (80 Se ybold Tablet 00:00: 04:59 mg total) - 00 :00 by mouth 2 Externa times l daily Apixaban 2022-0 2022- No [id number] 5mg Take 1 K elsey (Eliquis) 5 02-26 tablet (5 Se ybold MG oral 00:00: 04:59 mg total) - Tablet 00 :00 by mouth 2 Externa times l daily cholecalcif 2023-0 Yes 2000U QD Take 1 Met hodi jani, 7-[address] vitamin D3, 12:02: (2,000 Hosp yaya 50 mcg 00 Units l (2,000 total) by unit) mouth capsule daily. capsule cholecalcif 3-0 Yes 2000U QD Take 1 Met hodi jani, 7-[address] vitamin D3, 12:02: (2,000 Hosp yaya 50 mcg 00 Units l (2,000 total) by unit) mouth capsule daily. capsule omeprazole 2022-0 2022- No 20mg QD Take 1 Meth crystal (PriLOSEC) 02-[address] 20 MG 12:02: 00:00 (20 mg Hospita capsule 00 :00 total) by l mouth daily. omeprazole 2022-0 2022- No 20mg QD Take 1 Meth crystal (PriLOSEC) 02-[address] 20 MG 12:02: 00:00 (20 mg Hospita capsule 00 :00 total) by l mouth daily. levothyroxi 2022-0 Yes 112ug QD Take 1 Met hodi ne - tablet st (SYNTHROID) 12:02: (112 mcg Ho spita 112 mcg 15 total) by l tablet mouth daily. glipiZIDE 2022-0 Yes 10mg Q.5D Take 1 Method i (GLUCOTROL) 7-26 tablet (10 st 10 MG 12:02: mg total) Hospita tablet 15 by mouth 2 l (two) times a day before meals. metFORMIN 3-0 Yes 1000mg Q.5D Take 1 Meth crystal (GLUCOPHAGE 7-[address] ) 1,000 mg 12:02: (1,000 mg Ho spita tablet 15 total) by l mouth 2 (two) times a day with meals. furosemide 3-0 Yes 40mg QD Take 1 Metho di (LASIX) 40 7-26 tablet (40 st mg tablet 12:02: mg total) Hos alisia 15 by mouth l daily. atorvastati 3-0 Yes 10mg QD Take 1 Meth crystal n (LIPITOR) 7-26 tablet (10 st 10 mg 12:02: mg total) Hospita tablet 15 by mouth l daily. cetirizine 3-0 Yes 5mg QD Take 1 Metho di (ZyrTEC) 5 7-26 tablet (5 st MG tablet 12:02: mg total) Hos alisia 15 by mouth l daily. citalopram 3-0 Yes 10mg QD Take 1 Metho di (CeleXA) 10 7-26 tablet (10 st MG tablet 12:02: mg total) Hos alisia 15 by mouth l daily. pantoprazol 2022-0 Yes 40mg QD Take 1 Meth crystal e 7-26 tablet (40 st (PROTONIX) 12:02: mg total) Ho spita 40 MG EC 15 by mouth l tablet daily. fluticasone 2022-0 Yes 1{puff} Q.5D Inhale 1 Methodi propion-rafael 7-[address] meteroL 12:02: (two) Hospita (ADVAIR/WIX 15 times a l ALKA INHUB) day. For 100-50 COPD mcg/dose DISKUS apixaban 2022-0 Yes 5mg Q.5D Take 1 Methodi (ELIQUIS) 5 7-26 tablet (5 st mg tablet 12:02: mg total) Hos alisia 15 by mouth 2 l (two) times a day. sotaloL 2022-0 Yes 80mg Q.5D Take 1 Methodi (BETAPACE) 7-26 tablet (80 st 80 MG 12:02: mg total) Hospita tablet 15 by mouth 2 l (two) times a day. ALPRAZolam 2022-0 Yes .25mg Q24H Take 1 Meth crystal (XANAX) 7-[address] 0.25 MG 12:02: (0.25 mg Hospit a tablet 15 total) by l mouth daily as needed for anxiety. Per [place] PDMP: last filled- 02/20/23, quantity- 20, day supply- 20. levothyroxi 2022-0 Yes 112ug QD Take 1 Met hodi ne 7-[address] (SYNTHROID) 12:02: (112 mcg Ho spita 112 mcg 15 total) by l tablet mouth daily. glipiZIDE 2022-0 Yes 10mg Q.5D Take 1 Method i (GLUCOTROL) 7-26 tablet (10 st 10 MG 12:02: mg total) Hospita tablet 15 by mouth 2 l (two) times a day before meals. metFORMIN 3-0 Yes 1000mg Q.5D Take 1 Meth crystal [...] QD Take 1 Meth crystal n (LIPITOR) - tablet (10 st 10 mg 12:02: mg total) Hospita tablet 15 by mouth l daily. cetirizine 2022-0 Yes 5mg QD Take 1 Metho di (ZyrTEC) 5 - tablet (5 st MG tablet 12:02: mg total) Hos alisia 15 by mouth l daily. citalopram 2022-0 Yes 10mg QD Take 1 Metho di (CeleXA) 10 02-20 tablet (10 st MG tablet 12:02: mg total) Hos alisia 15 by mouth l daily. pantoprazol 2022-0 Yes 40mg QD Take 1 Meth crystal e 02-20 tablet (40 st (PROTONIX) 12:02: mg total) Ho spita 40 MG EC 15 by mouth l tablet daily. fluticasone 2022-0 Yes 1{puff} Q.5D Inhale 1 Methodi propion-rafael 02-[address] meteroL 12:02: (two) Hospita (ADVAIR/WIX 15 times a l ALKA INHUB) day. For 100-50 COPD mcg/dose DISKUS apixaban 2022-0 Yes 5mg Q.5D Take 1 Methodi (ELIQUIS) 5 02-20 tablet (5 st mg tablet 12:02: mg total) [facility] 15 by mouth 2 l (two) times a day. sotaloL 2022-0 Yes 80mg Q.5D Take 1 [facility] (BETAPACE) - tablet (80 st 80 MG 12:02: mg total) [facility]osp[facility] tablet 15 by mouth 2 l (two) times a day. ALPRAZolam 2022-0 Yes .25mg Q24H Take 1 Meth crystal (XANAX) 02-[address] 0.25 MG 12:02: (0.25 mg Hospit a tablet 15 total) by l mouth daily as needed for anxiety. Per [place] PDMP: last filled- 02/20/23, quantity- 20, day supply- 20. ciprofloxac 2022-0 2023- No 500mg Q.5D Take 1 [facility] in (Cipro) 7-26 08-[address] 500 MG 00:00: 04:59 (500 mg Hospita tablet 00 :00 total) by l mouth 2 (two) times a day for 11 days. ciprofloxac 3-0 2022- No 500mg Q.5D Take 1 [facility] in (Cipro) 02-[address] 500 MG 00:00: 04:59 (500 mg [facility]osp[facility] tablet 00 :00 total) by l mouth 2 (two) times a day for 11 days. HYDROcodone 3-0 2022- [place] [id number] 15mL Q8H Take 15 mL [facility] -acetaminop 02-[address] hen (HYCET) 00:00: 04:59 every 8 Ho [facility]ita 2.5-108.3 00 :00 (eight) l mg/5 mL hours as solution needed for moderate pain for up to 5 days .acute pain. Per [place] PDMP: last filled- 01/20/23, quantity- 630 mL, day supply- 14. Max Daily Amount: 45 mL HYDROcodone 3-0 2022- [place] [id number] 15mL Q8H Take 15 mL [facility] -acetaminop 02-[address] hen (HYCET) 00:00: 04:59 every 8 [facility] sp[facility] 2.5-108.3 00 :00 (eight) l mg/5 mL hours as solution needed for moderate pain for up to 5 days .acute pain. Per [place] PDMP: last filled- 01/20/23, quantity- 630 mL, day supply- 14. Max Daily Amount: 45 mL spironolact 2023-0 2023- No 50mg QD Take 1 [facility] one - 08-20 tablet (50 st (ALDACTONE) 00:00: 04:59 mg total) Hospita 50 MG 00 :00 by mouth l tablet daily for 30 days. spironolact 2023-0 2023- No 50mg QD Take 1 [facility] one 7-20 08-20 tablet (50 st (ALDACTONE) 00:00: 04:59 mg total) [facility]ospita 50 MG 00 :00 by mouth l tablet daily for 30 days. spironolact 2023-0 2023- No 25mg QD Take 1 [facility] one -13 02-19 tablet (25 st (ALDACTONE) 16:35: 00:00 mg total) [facility]ospita 25 MG 33 :00 by mouth l tablet daily. spironolact 2022-0 2023- No 25mg QD Take 1 Met hodi one 02-13 tablet (25 st (ALDACTONE) 16:35: 00:00 mg total) [facility]ospita 25 MG 33 :00 by mouth l tablet daily. omeprazole 2022-0 3- No 20mg QD Take 1 Meth crystal (PriLOSEC) 02-[address] 20 MG 15:30: 00:00 (20 mg [facility]osp[facility] capsule 02 :00 total) by l mouth daily. Daughter confirm Pt. Taking Protonix as well. omeprazole 2022-0 2023- No 20mg QD Take 1 Meth crystal (PriLOSEC) 02-[address] 20 MG 15:30: 00:00 (20 mg [facility]osp[facility] capsule 02 :00 total) by l mouth daily. Daughter confirm Pt. Taking Protonix as well. Metronidazo 2022-0 2023- No Kelse y le 500 MG 02-03 Seybold oral Tablet 00:00: 00:00 - 00 :00 Externa l ciprofloxac 3-0 2023- No 500mg Q.5D Take 1 [facility] in (Cipro) 02-[address] 500 MG 00:00: 00:00 (500 mg [facility]osp[facility] tablet 00 :00 total) by l mouth 2 (two) times a day for 5 days. metroNIDAZO 3-0 2023- No 500mg Q.[id number] Take 1 [facility] LE (FlagyL) 02-[id number] 500 MG 00:00: 00:00 3D (500 mg [facility]osp[facility] tablet 00 :00 total) by l mouth 3 (three) times a day for 5 days. ciprofloxac 3-0 2023- No 500mg Q.5D Take 1 [facility] in (Cipro) 02-[address] 500 MG 00:00: 00:00 (500 mg [facility]osp[facility] tablet 00 :00 total) by l mouth 2 (two) times a day for 5 days. metroNIDAZO 3-0 2023- No 500mg Q.[id number] Take 1 [facility] LE (FlagyL) 02-[id number] 500 MG 00:00: 00:00 3D (500 mg [facility]osp[facility] tablet 00 :00 total) by l mouth 3 (three) times a day for 5 days. 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 l Paroxetine 2022- No every 24 Ke lsey HCl 20 MG 01-31 hours Seybold oral Tablet 10:01: 00:00 - 35 :00 Externa l Umeclidiniu 2022- No [id number] Inhale 1 Anai m [place] 01-31 inhalation Sey bold (Incruse 10:00: 00:00 into the - Ellipta) 52 :00 lungs Externa 62.5 daily l MCG/INH inhalation AEROSOL POWDER, BREATH ACTIVATED Fluticasone Yes [id number] 1{puff} Inhale 1 Anai -Salmeterol - puff into Sey bold (Advair 00:00: the lungs - Diskus) 00 2 times Externa 250-50 daily l MCG/ACT inhalation AEROSOL POWDER, BREATH ACTIVATED Alprazolam Yes [id number] .25mg QD Take 1 Anai 0.25 MG 7- tablet Seybold oral Tablet 00:00: (0.25 mg - 00 total) by Externa mouth l daily as needed Fluticasone 2022-0 Yes [id number] 1{puff} Inhale 1 Anai -Salmeterol - puff into Sey bold (Advair 00:00: the lungs - Diskus) 00 2 times Externa 250-50 daily l MCG/ACT inhalation AEROSOL POWDER, BREATH ACTIVATED Alprazolam Yes [id number] .25mg QD Take 1 Anai 0.25 MG 7-06 tablet Seybold oral Tablet 00:00: (0.25 mg - 00 total) by Externa mouth l daily as needed Fluticasone 2022-0 Yes [id number] 1{puff} Inhale 1 Anai -Salmeterol 7-06 puff into Sey bold (Advair 00:00: the lungs - Diskus) 00 2 times Externa 250-50 daily l MCG/ACT inhalation AEROSOL POWDER, BREATH ACTIVATED Alprazolam 3-0 Yes [id number] .25mg QD Take 1 Anai 0.25 MG 7-06 tablet Seybold oral Tablet 00:00: (0.25 mg - 00 total) by Externa mouth l daily as needed Sotalol HCl 3-0 Yes [id number] 80mg Take 1 Anai 80 MG oral 7-06 tablet (80 Sey bold Tablet 00:00: mg total) - 00 by mouth 2 Externa times l daily Fluticasone 2023-0 Yes [id number] 1{puff} Inhale 1 Anai -Salmeterol 7-06 puff into Sey bold (Advair 00:00: the lungs - Diskus) 00 2 times Externa 250-50 daily l MCG/ACT inhalation AEROSOL POWDER, BREATH ACTIVATED Alprazolam 3-0 Yes [id number] .25mg QD Take 1 Anai 0.25 MG 7-06 tablet Seybold oral Tablet 00:00: (0.25 mg - 00 total) by Externa mouth l daily as needed Fluticasone 2023-0 Yes [id number] 1{puff} Inhale 1 Anai -Salmeterol 7-06 puff into Sey bold (Advair 00:00: the lungs - Diskus) 00 2 times Externa 250-50 daily l MCG/ACT inhalation AEROSOL POWDER, BREATH ACTIVATED Alprazolam 3-0 Yes [id number] .25mg QD Take 1 Anai 0.25 MG 7-06 tablet Seybold oral Tablet 00:00: (0.25 mg - 00 total) by Externa mouth l daily as needed Fluticasone 2023-0 Yes [id number] 1{puff} Inhale 1 Anai -Salmeterol 7-06 puff into Sey bold (Advair 00:00: the lungs - Diskus) 00 2 times Externa 250-50 daily l MCG/ACT inhalation AEROSOL POWDER, BREATH ACTIVATED Alprazolam 2023-0 Yes [id number] .25mg QD Take 1 Anai 0.25 MG 7-06 tablet Seybold oral Tablet 00:00: (0.25 mg - 00 total) by Externa mouth l daily as needed Fluticasone 2023-0 Yes [id number] 1{puff} Inhale 1 Anai -Salmeterol 7-06 puff into Sey bold (Advair 00:00: the lungs - Diskus) 00 2 times Externa 250-50 daily l MCG/ACT inhalation AEROSOL POWDER, BREATH ACTIVATED Alprazolam Yes [id number] .25mg QD Take 1 Anai 0.25 MG 7-06 tablet Seybold oral Tablet 00:00: (0.25 mg - 00 total) by Externa mouth l daily as needed Eliquis 5 0 Yes 5mg Take 1 Anai MG oral 7-05 tablet (5 Seybold Tablet 00:00: mg total) - 00 by mouth 2 Externa times l daily Sotalol HCl 2022- No Kelse y 80 MG oral 7-05 07-06 Seybold Tablet 00:00: 00:00 - 00 :00 Externa l Cetirizine 2022-0 2022- No [id number] TAKE 1 Anai HCl 5 MG 7-03 07- TABLET(5 Seybol d oral Tablet 00:00: 00:00 MG) BY - 00 :00 MOUTH Externa DAILY l HYDROcodone 0 2022- No 15mL Q8H Take 15 mL [facility] -acetaminop -19 02- by mouth st hen (HYCET) 00:00: 00:00 every 8 [facility] 2.5-108.3 00 :00 (eight) l mg/5 mL hours as solution needed for moderate pain. Per [place] PDMP: last filled- 01/20/23, quantity- 630 mL, day supply- 14. HYDROcodone 0 2022- No 15mL Q8H Take 15 mL [facility] -acetaminop - 07-[address] hen (HYCET) 00:00: 00:00 every 8 Ho sp[facility] 2.5-108.3 00 :00 (eight) l mg/5 mL hours as solution needed for moderate pain. Per [place] PDMP: last filled- 01/20/23, quantity- 630 mL, day supply- 14. 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 NovoLOG Yes 2U Q.[id number] Inject 2 [facility] FlexPen 6-[id number] U-100 00:00: 3D under the [facility]ospita Insulin 100 00 skin 3 l unit/mL (3 (three) mL) insulin times a pen day with meals. Insulin Yes [id number] 2 units if Anai Aspart 6-05 blood Seybold (NovoLOG 00:00: sugar is - FlexPen) 00 250-299, 4 Exter na 100 UNIT/ML units if l subcutaneou blood s Solution sugar is Pen-injecto 300-350, 6 r units if blood sugar is 351-399, 8 units if blood sugar is above 400; Max dose of 25 units per day Insulin Yes [id number] 2 units if Anai Aspart 6-05 blood Seybold (NovoLOG 00:00: sugar is - FlexPen) 00 250-299, 4 Exter na 100 UNIT/ML units if l subcutaneou blood s Solution sugar is Pen-injecto 300-350, 6 r units if blood sugar is 351-399, 8 units if blood sugar is above 400; Max dose of 25 units per day Insulin Yes [id number] 2 units if Anai Aspart 6-05 blood Seybold (NovoLOG 00:00: sugar is - FlexPen) 00 250-299, 4 Exter na 100 UNIT/ML units if l subcutaneou blood s Solution sugar is Pen-injecto 300-350, 6 r units if blood sugar is 351-399, 8 units if blood sugar is above 400; Max dose of 25 units per day Insulin Yes [id number] 2 units if Anai Aspart 6-05 blood Seybold (NovoLOG 00:00: sugar is - FlexPen) 00 250-299, 4 Exter na 100 UNIT/ML units if l subcutaneou blood s Solution sugar is Pen-injecto 300-350, 6 r units if blood sugar is 351-399, 8 units if blood sugar is above 400; Max dose of 25 units per day Insulin 2022- No [id number] 2 units if Anai Aspart 6-05 - blood Seybold (NovoLOG 00:00: 00:00 sugar is - FlexPen) 00 :00 250-299, 4 Exter na 100 UNIT/ML units if l subcutaneou blood s Solution sugar is Pen-injecto 300-350, 6 r units if blood sugar is 351-399, 8 units if blood sugar is above 400; Max dose of 25 units per day Umeclidiniu Yes [id number] Inhale 1 Anai m [place] -31 inhalation Seyb old (Incruse 08:13: into the - Ellipta) 15 lungs Externa 62.5 daily l MCG/INH inhalation AEROSOL POWDER, BREATH ACTIVATED Lidocaine Yes Apply 1 Rakan sey % apply 12-26 applicatio Seybol d externally 08:13: n - Ointment 15 topically 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 l Omeprazole 0 Yes every 24 Rakan sey 20 MG oral 5-31 hours Seybold Delayed 08:13: - Release 15 Externa Capsule l Paroxetine 0 Yes every 24 Rakan sey HCl 20 MG 5-31 hours Seybold oral Tablet 08:13: - 15 Externa l Umeclidiniu Yes [id number] Inhale 1 Anai m [place] 5-31 inhalation Seyb old (Incruse 08:13: into the - Ellipta) 15 lungs Externa 62.5 daily l MCG/INH inhalation AEROSOL POWDER, BREATH ACTIVATED Lidocaine 5 Yes Apply 1 Rakan sey % apply 12-26 applicatio Seybol d externally 08:13: n - Ointment 15 topically 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 l Omeprazole Yes every [...] mL) insulin 00 skin l pen nightly. Levemir Yes 10U QD Inject 10 Metho di FlexPen 100 5-[address] unit/mL (3 00:00: under the [facility] mL) insulin 00 skin l pen nightly. Furosemide Yes [id number] 40mg QD Take 1 Anai (Lasix) 40 5-31 tablet (40 Sey bold MG oral 00:00: mg total) - Tablet 00 by mouth Externa daily as l needed Furosemide Yes [id number] 40mg QD Take 1 Anai (Lasix) 40 5-31 tablet (40 Sey bold MG oral 00:00: mg total) - Tablet 00 by mouth Externa daily as l needed Furosemide Yes [id number] 40mg QD Take 1 Anai (Lasix) 40 5-31 tablet (40 Sey bold MG oral 00:00: mg total) - Tablet 00 by mouth Externa daily as l needed Insulin Yes [id number] 10 units Ke lsey Detemir 5-31 sc daily Seybold (Levemir 00:00: - FlexPen) 00 Externa 100 UNIT/ML l subcutaneou s Solution Pen-injecto r Insulin Yes [id number] 2 units if Anai Aspart 5-31 blood Seybold (NovoLOG 00:00: sugar is - FlexPen) 00 250-2994 Externa 100 UNIT/ML units if l subcutaneou blood s Solution sugar is Pen-injecto 300-3506 r units if blood sugar is 351-3998 units if blood sugar is above 400Max dose of 25 units per day Furosemide Yes [id number] 40mg QD Take 1 Anai (Lasix) 40 5-31 tablet (40 Sey bold MG oral 00:00: mg total) - Tablet 00 by mouth Externa daily as l needed Insulin Yes [id number] 10 units Ke lsey Detemir 5-31 sc daily Seybold (Levemir 00:00: - FlexPen) 00 Externa 100 UNIT/ML l subcutaneou s Solution Pen-injecto r Insulin Yes [id number] 2 units if Anai Aspart 5-31 blood Seybold (NovoLOG 00:00: sugar is - FlexPen) 00 250-2994 Externa 100 UNIT/ML units if l subcutaneou blood s Solution sugar is Pen-injecto 300-3506 r units if blood sugar is 351-3998 units if blood sugar is above 400Max dose of 25 units per day Furosemide Yes [id number] 40mg QD Take 1 Anai (Lasix) 40 5-31 tablet (40 Sey bold MG oral 00:00: mg total) - Tablet 00 by mouth Externa daily as l needed Insulin Yes [id number] 10 units Ke lsey Detemir 5-31 sc daily Seybold (Levemir 00:00: - FlexPen) 00 Externa 100 UNIT/ML l subcutaneou s Solution Pen-injecto r Furosemide Yes [id number] 40mg QD Take 1 Anai (Lasix) 40 5-31 tablet (40 Sey bold MG oral 00:00: mg total) - Tablet 00 by mouth Externa daily as l needed Insulin Yes [id number] 10 units Ke lsey Detemir 5-31 sc daily Seybold (Levemir 00:00: - FlexPen) 00 Externa 100 UNIT/ML l subcutaneou s Solution Pen-injecto r Furosemide Yes [id number] 40mg QD Take 1 Anai (Lasix) 40 5-31 tablet (40 Sey bold MG oral 00:00: mg total) - Tablet 00 by mouth Externa daily as l needed Insulin Yes [id number] 10 units Ke lsey Detemir 5-31 sc daily Seybold (Levemir 00:00: - FlexPen) 00 Externa 100 UNIT/ML l subcutaneou s Solution Pen-injecto r Furosemide 3-0 Yes [id number] 40mg QD Take 1 [facility]ai (Lasix) 40 5-31 tablet (40 Sey bold MG oral 00:00: mg total) - Tablet 00 by mouth Externa daily as l needed Insulin 2023-0 Yes [id number] 10 units Ke lsey Detemir 5-31 sc daily Seybold (Levemir 00:00: - FlexPen) 00 Externa 100 UNIT/ML l subcutaneou s Solution Pen-injecto r Furosemide 3-0 Yes [id number] 40mg QD Take 1 [facility]ai (Lasix) 40 5-31 tablet (40 Sey bold MG oral 00:00: mg total) - Tablet 00 by mouth Externa daily as l needed Furosemide 2023-0 Yes [id number] 40mg QD Take 1 Anai (Lasix) 40 5-31 tablet (40 Sey bold MG oral 00:00: mg total) - Tablet 00 by mouth Externa daily as l needed Insulin 2022-0 2023- No [id number] 10 units K elsey Detemir 5-31 09-13 sc daily Seybold (Levemir 00:00: 00:00 - FlexPen) 00 :00 Externa 100 UNIT/ML l subcutaneou s Solution Pen-injecto r HYDROcodone 2022-0 Yes TAKE 15 ML Anai -Acetaminop 5-24 BY MOUTH Seyb old hen 7.5-325 00:00: TWICE - MG/15ML 00 DAILY FOR Externa oral PAIN. l Solution HYDROcodone 2022-0 Yes TAKE 15 ML Anai -Acetaminop 5-24 [...] FOR Externa oral PAIN. l Solution HYDROcodone 2022-0 Yes TAKE 15 ML Anai -Acetaminop 5-24 BY MOUTH Seyb old hen 7.5-325 00:00: TWICE - MG/15ML 00 DAILY FOR Externa oral PAIN. l Solution HYDROcodone 2022-0 2022- No TAKE 15 ML Anai -Acetaminop 5-24 08-09 BY MOUTH Sey bold hen 7.5-325 00:00: [...] Externa DISPERSIBLE 6 HOURS l NEEDED Dexamethaso 3-0 Yes TAKE 2 Samia ey ne 5-15 [...] DISPERSIBLE 6 HOURS l NEEDED Dexamethaso 2023-0 2022- No TAKE 2 Rakan sey ne 5-15 07-06 TABLETS BY Seybold (DECADRON) 00:00: 00:00 MOUTH - 4 MG oral 00 :00 TWICE Externa tablet DAILY FOR l 2 DAYS THEN TWICE DAILY FOR 1 DAY. START THE DAY AFTER EACH CHEMO TREATMENT Ondansetron 2022- No DISSOLVE 1 Anai (ZOFRAN) 4 5-15 07- TABLET ON Sey bold MG oral 00:00: 00:00 THE TONGUE - TABLET 00 :00 EVERY 4 TO Externa DISPERSIBLE 6 HOURS l NEEDED Citalopram Yes [id number] TAKE 1 K elsey Hydrobromid 5-09 TABLET(10 Sey bold e 10 MG 00:00: MG) BY - oral Tablet 00 MOUTH Externa DAILY l Citalopram Yes [id number] TAKE 1 K elsey Hydrobromid 5-09 TABLET(10 Sey bold e 10 MG 00:00: MG) BY - oral Tablet 00 MOUTH Externa DAILY l Citalopram Yes [id number] TAKE 1 K elsey Hydrobromid 5-09 TABLET(10 Sey bold e 10 MG 00:00: MG) BY - oral Tablet 00 MOUTH Externa DAILY l Benadryl, Yes SWALLOW 5 Rakan sey Maalox, 5-09 TO 10 ML Seybold Lidocaine 00:00: BEFORE - Viscous HCl 00 MEALS AND Ext lalitha (Magic EVERY l Mouthwash-E NIGHT AT qual Ratio) BEDTIME Citalopram Yes [id number] TAKE 1 K elsey Hydrobromid 5-09 TABLET(10 Sey bold e 10 MG 00:00: MG) BY - oral Tablet 00 MOUTH Externa DAILY l Benadryl, Yes SWALLOW 5 Rakan sey Maalox, 5-09 TO 10 ML Seybold Lidocaine 00:00: BEFORE - Viscous HCl 00 MEALS AND Ext lalitha (Magic EVERY l Mouthwash-E NIGHT AT qual Ratio) BEDTIME Citalopram Yes [id number] TAKE 1 K elsey Hydrobromid 5-09 TABLET(10 Sey bold e 10 MG 00:00: MG) BY - oral Tablet 00 MOUTH Externa DAILY l Benadryl, Yes SWALLOW 5 Rakan sey Maalox, 5-09 TO 10 ML Seybold Lidocaine 00:00: BEFORE - Viscous HCl 00 MEALS AND Ext lalitha (Magic EVERY l Mouthwash-E NIGHT AT qual Ratio) BEDTIME Citalopram 2022-0 Yes [id number] TAKE 1 K elsey Hydrobromid 5-09 TABLET(10 Sey bold e 10 MG 00:00: MG) BY - oral Tablet 00 MOUTH Externa DAILY l Citalopram 2022-0 Yes [id number] TAKE 1 K elsey Hydrobromid 5-09 TABLET(10 Sey bold e 10 MG 00:00: MG) BY - oral Tablet 00 MOUTH Externa DAILY l Citalopram 2022-0 Yes [id number] TAKE 1 K elsey Hydrobromid 5-09 TABLET(10 Sey bold e 10 MG 00:00: MG) BY - oral Tablet 00 MOUTH Externa DAILY l Citalopram 2022-0 Yes [id number] TAKE 1 K elsey Hydrobromid 5-09 TABLET(10 Sey bold e 10 MG 00:00: MG) BY - oral Tablet 00 MOUTH Externa DAILY l Benadryl, 2022-0 3- No SWALLOW 5 Ke lsey Maalox, 5-09 -06 TO 10 ML Seybold Lidocaine 00:00: 00:00 BEFORE - Viscous HCl 00 :00 MEALS AND Ext lalitha (Magic EVERY l Mouthwash-E NIGHT AT qual Ratio) BEDTIME Spironolact 2022-0 Yes [id number] TAKE 1 Anai one 25 MG 5-08 TABLET(25 Seybo ld oral Tablet 00:00: MG) BY - 00 MOUTH Externa DAILY l Spironolact 2022-0 Yes [id number] TAKE 1 Anai one 25 MG 5-08 TABLET(25 Seybo ld oral Tablet 00:00: MG) BY - 00 MOUTH Externa DAILY l Spironolact 2022-0 Yes [id number] TAKE 1 Anai one 25 MG 5-08 TABLET(25 Seybo ld oral Tablet 00:00: MG) BY - 00 MOUTH Externa DAILY l Levothyroxi 2022-0 Yes [id number] TAKE 1 Anai ne Sodium 5-08 TABLET(112 Seyb old 112 MCG 00:00: MCG) BY - oral Tablet 00 MOUTH Externa EVERY l MORNING ON AN EMPTY STOMACH Spironolact 3-0 Yes [id number] TAKE 1 Anai one 25 MG 5-08 TABLET(25 Seybo ld oral Tablet 00:00: MG) BY - 00 MOUTH Externa DAILY l Levothyroxi 2022-0 Yes [id number] TAKE 1 Anai ne Sodium 5-08 TABLET(112 Seyb old 112 MCG 00:00: MCG) BY - oral Tablet 00 MOUTH Externa EVERY l MORNING ON AN EMPTY STOMACH Spironolact 2022-0 Yes [id number] TAKE 1 Anai one 25 MG 5-08 TABLET(25 Seybo ld oral Tablet 00:00: MG) BY - 00 MOUTH Externa DAILY l Levothyroxi 2022-0 Yes [id number] TAKE 1 Anai ne Sodium 5-08 TABLET(112 Seyb old 112 MCG 00:00: MCG) BY - oral Tablet 00 MOUTH Externa EVERY l MORNING ON AN EMPTY STOMACH Spironolact 2022-0 Yes [id number] TAKE 1 Anai one 25 MG 5-08 TABLET(25 Seybo ld oral Tablet 00:00: MG) BY - 00 MOUTH Externa DAILY l Levothyroxi 2022-0 Yes [id number] TAKE 1 Anai ne Sodium 5-08 TABLET(112 Seyb old 112 MCG 00:00: MCG) BY - oral Tablet 00 MOUTH Externa EVERY l MORNING ON AN EMPTY STOMACH Spironolact 2022-0 Yes [id number] TAKE 1 Anai one 25 MG 5-08 TABLET(25 Seybo ld oral Tablet 00:00: MG) BY - 00 MOUTH Externa DAILY l Levothyroxi 2022-0 Yes [id number] TAKE 1 Anai ne Sodium 5-08 TABLET(112 Seyb old 112 MCG 00:00: MCG) BY - oral Tablet 00 MOUTH Externa EVERY l MORNING ON AN EMPTY STOMACH Spironolact 2022-0 Yes [id number] TAKE 1 Anai one 25 MG 5-08 TABLET(25 Seybo ld oral Tablet 00:00: MG) BY - 00 MOUTH Externa DAILY l Levothyroxi 2022-0 Yes [id number] TAKE 1 Anai ne Sodium 5-08 TABLET(112 Seyb old 112 MCG 00:00: MCG) BY - oral Tablet 00 MOUTH Externa EVERY l MORNING ON AN EMPTY STOMACH Spironolact 2022-0 Yes [id number] TAKE 1 Anai one 25 MG 5-08 TABLET(25 Seybo ld oral Tablet 00:00: MG) BY - 00 MOUTH Externa DAILY l Metformin 3-0 Yes [id number] TAKE 1 Ke lsey HCl 1000 MG 4-16 TABLET(100 Se ybold oral Tablet 00:00: 0 MG) BY - 00 MOUTH IN Externa THE l MORNING AND IN THE EVENING WITH MEALS Metformin 2023-0 Yes [id number] TAKE 1 Ke lsey HCl 1000 MG 4-16 TABLET(100 Se ybold oral Tablet 00:00: 0 MG) BY - 00 MOUTH IN Externa THE l MORNING AND IN THE EVENING WITH MEALS Metformin 2023-0 Yes [id number] TAKE 1 Ke lsey HCl 1000 MG 4-16 TABLET(100 Se ybold oral Tablet 00:00: 0 MG) BY - 00 MOUTH IN Externa THE l MORNING AND IN THE EVENING WITH MEALS Metformin 2023-0 Yes [id number] TAKE 1 Ke lsey HCl 1000 MG 4-16 TABLET(100 Se ybold oral Tablet 00:00: 0 MG) BY - 00 MOUTH IN Externa THE l MORNING AND IN THE EVENING WITH MEALS Metformin 2022-0 Yes [id number] TAKE 1 Ke lsey HCl 1000 MG 4-16 TABLET(100 Se ybold oral Tablet 00:00: 0 MG) BY - 00 MOUTH IN Externa THE l MORNING AND IN THE EVENING WITH MEALS Metformin 2023-0 Yes [id number] TAKE 1 Ke lsey HCl 1000 MG 4-16 TABLET(100 Se ybold oral Tablet 00:00: 0 MG) BY - 00 MOUTH IN Externa THE l MORNING AND IN THE EVENING WITH MEALS Metformin 3-0 Yes [id number] TAKE 1 Ke lsey HCl 1000 MG 4-16 TABLET(100 Se ybold oral Tablet 00:00: 0 MG) BY - 00 MOUTH IN Externa THE l MORNING AND IN THE EVENING WITH MEALS Metformin 2023-0 Yes [id number] TAKE 1 Ke lsey HCl 1000 MG 4-16 TABLET(100 Se ybold oral Tablet 00:00: 0 MG) BY - 00 MOUTH IN Externa THE l MORNING AND IN THE EVENING WITH MEALS Metformin 2023-0 Yes [id number] TAKE 1 Ke lsey HCl 1000 MG 4-16 TABLET(100 Se ybold oral Tablet 00:00: 0 MG) BY - 00 MOUTH IN Externa THE l MORNING AND IN THE EVENING WITH MEALS Metformin 2023-0 Yes [id number] TAKE 1 Ke lsey HCl 1000 MG 4-16 TABLET(100 Se ybold oral Tablet 00:00: 0 MG) BY - 00 MOUTH IN Externa THE l MORNING AND IN THE EVENING WITH MEALS Benzocaine- 2022-0 Yes [id number] Suck on 1 Anai Menthol 4-12 lozenge Seybold (Cepacol 00:00: every 2 - Sore 00 hours as Externa Throat) needed for l 15-3.6 MG sore mouth/throa throat t Lozenge Oxycodone 2023-0 Yes [id number] 30{tbl} Q.[id number] Take 30 Anai HCl 10 MG 4-12 [id number] tablets by Seybold oral Tablet 00:00: 3D mouth 3 - 00 times Externa daily as l needed Benzocaine- 2023-0 Yes [id number] Suck on 1 Anai Menthol 4-12 lozenge Seybold (Cepacol 00:00: every 2 - Sore 00 hours as Externa Throat) needed for l 15-3.6 MG sore mouth/throa throat t Lozenge Oxycodone 2022-0 Yes [id number] 30{tbl} Q.[id number] Take 30 Anai HCl 10 MG 4-12 [id number] tablets by Seybold oral Tablet 00:00: 3D mouth 3 - 00 times Externa daily as l needed Benzocaine- 2022-0 Yes [id number] Suck on 1 Anai Menthol 4-12 lozenge Seybold (Cepacol 00:00: every 2 - Sore 00 hours as Externa Throat) needed for l 15-3.6 MG sore mouth/throa throat t Lozenge Oxycodone 2022-0 Yes [id number] 30{tbl} Q.[id number] Take 30 Anai HCl 10 MG 4-12 [id number] tablets by Seybold oral Tablet 00:00: 3D mouth 3 - 00 times Externa daily as l needed Benzocaine- 2023-0 Yes [id number] Suck on 1 Anai Menthol 4-12 lozenge Seybold (Cepacol 00:00: every 2 - Sore 00 hours as Externa Throat) needed for l 15-3.6 MG sore mouth/throa throat t Lozenge Benzocaine- 2023-0 Yes [id number] Suck on 1 Anai Menthol 4-12 lozenge Seybold (Cepacol 00:00: every 2 - Sore 00 hours as Externa Throat) needed for l 15-3.6 MG sore mouth/throa throat t Lozenge Benzocaine- 2022-0 3- No [id number] Suck on 1 Anai Menthol 11-07 lozenge Seybold (Cepacol 00:00: 00:00 every 2 - Sore 00 :00 hours as Externa Throat) needed for l 15-3.6 MG sore mouth/throa throat t Lozenge Oxycodone 0 2022- No [id number] 30{tbl} [id number] Take 30 Anai HCl 10 MG 11-07 [id number] tablets by Seybold oral Tablet 00:00: 00:00 3D mouth 3 - 00 :00 times Externa daily as l needed Tramadol Yes [id number] 50mg Q.25D Take 1 K elsey HCl 11-01 tablet (50 Seybold (ULTRAM) 50 00:00: mg total) - MG oral 00 by mouth Externa Tablet every 6 l hours as needed for pain Umeclidiniu 0 Yes [id number] Inhale 1 Anai m [place] 4-05 inhalation Seyb old (Incruse 14:58: into the - Ellipta) 44 lungs Externa 62.5 daily l MCG/INH inhalation AEROSOL POWDER, BREATH ACTIVATED Lidocaine Yes Apply 1 Rakan sey % apply 4-05 applicatio Seybol d externally 14:58: n - Ointment 46 topically 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 Pack methylPREDN 2022-0 Yes [id number] 1{dave} Take 1 dave Anai ISolone 4-05 by mouth Seybold (Medrol) 4 00:00: See Admin - MG oral 00 Instructio Auditing Clerk a Tablet ns Use as l Therapy directed. Pack methylPREDN 2022-0 Yes [id number] 1{dave} Take 1 dave Anai ISolone 4-05 by mouth Seybold (Medrol) 4 00:00: See Admin - MG oral 00 Instructio Auditing Clerk a Tablet ns Use as l Therapy directed. Pack methylPREDN 0 Yes [id number] 1{dave} Take 1 dave Ospina ISolone 4-05 by mouth Seybold (Medrol) 4 00:00: See Admin - MG oral 00 Instructio Auditing Clerk a Tablet ns Use as l Therapy directed. Pack methylPREDN 0 2022- No [id number] 1{dave} Take 1 dave Ospina ISolone 4-05 07-06 by mouth Seybold (Medrol) 4 00:00: 00:00 See Admin - MG oral 00 :00 Instructio Auditing Clerk a Tablet ns Use as l Therapy directed. Pack Tramadol Yes [id number] 50mg QD Take 1 Ke lsey HCl 3-30 tablet (50 Seybold (ULTRAM) 50 00:00: mg total) - MG oral 00 by mouth Externa Tablet daily as l needed for pain Umeclidiniu Yes [id number] Inhale 1 Anai m [place] 3-23 inhalation Seyb old (Incruse 09:08: into the - Ellipta) 57 lungs Externa 62.5 daily l MCG/INH inhalation AEROSOL POWDER, BREATH ACTIVATED Lidocaine 5 Yes Apply 1 Rakan sey % apply 3-23 applicatio Seybol d externally 09:08: n - Ointment 57 topically 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 l Roflumilast Yes 1{tbl} [...] Take 1 K elsey 500 MCG 3-16 07-06 tablet by Seybol d oral Tablet 00:00: 00:00 mouth - 00 :00 daily Externa l glipiZIDE 0 Yes [id number] 10mg Take 1 Ke lsey 10 MG oral 3-13 tablet (10 Sey bold Tablet 00:00: mg total) - 00 by mouth 2 Externa times l daily glipiZIDE 2022-0 Yes [id number] 10mg Take 1 Ke lsey 10 MG oral 3-13 tablet (10 Sey bold Tablet 00:00: mg total) - 00 by mouth 2 Externa times l daily glipiZIDE 2022-0 Yes [id number] 10mg Take 1 Ke lsey 10 MG oral 3-13 tablet (10 Sey bold Tablet 00:00: mg total) - 00 by mouth 2 Externa times l daily glipiZIDE 2022-0 Yes [id number] 10mg Take 1 Ke lsey 10 MG oral 3-13 tablet (10 Sey bold Tablet 00:00: mg total) - 00 by mouth 2 Externa times l daily glipiZIDE 2022-0 Yes [id number] 10mg Take 1 Ke lsey 10 MG oral 3-13 tablet (10 Sey bold Tablet 00:00: mg total) - 00 by mouth 2 Externa times l daily glipiZIDE 2022-0 Yes [id number] 10mg Take 1 Ke lsey 10 MG oral 3-13 tablet (10 Sey bold Tablet 00:00: mg total) - 00 by mouth 2 Externa times l daily glipiZIDE 2022-0 Yes [id number] 10mg Take 1 Ke lsey 10 MG oral 3-13 tablet (10 Sey bold Tablet 00:00: mg total) - 00 by mouth 2 Externa times l daily glipiZIDE 2022-0 Yes [id number] 10mg Take 1 Ke lsey 10 MG oral 3-13 tablet (10 Sey bold Tablet 00:00: mg total) - 00 by mouth 2 Externa times l daily Semaglutide 0 Yes [id number] .25mg Inject Anai (0.25 or 3-07 0.25 mg Seybold 0.5 00:00: into the - mg/dose) 2 00 skin once Exte rna mg/1.5 mL a week l SQ Solution Pen-Injecto r Umeclidiniu Yes [id number] Inhale 1 Anai m [place] 2-24 inhalation Seyb old (Incruse 10:49: into the - Ellipta) 11 lungs Externa 62.5 daily l MCG/INH inhalation AEROSOL POWDER, BREATH ACTIVATED Lidocaine Yes Apply 1 Rakan sey % apply 24 applicatio Seybol d externally 10:49: n - Ointment 11 topically 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 l Nystatin 2022- No [id number] Take 5 mL Anai (Nystatin) 2-24 -04 (500,000 Seyb old [id number] 00:00: 05:59 units - UNIT/ML 00 :00 total) by Externa mouth/throa mouth 4 l t times Suspension daily for 7 days Amoxicillin Yes Anai -Pot 2- Seybold Clavulanate 00:00: - 875-125 MG 00 Externa oral Tablet l Carvedilol Yes [id number] TAKE 1 K elsey 25 MG oral 2-20 TABLET(25 Seyb old Tablet 00:00: MG) BY - 00 MOUTH IN Externa THE l MORNING AND IN THE EVENING WITH MEALS Carvedilol 0 Yes [id number] TAKE 1 K elsey 25 MG oral 2-20 TABLET(25 Seyb old Tablet 00:00: MG) BY - 00 MOUTH IN Externa THE l MORNING AND IN THE EVENING WITH MEALS Carvedilol 0 Yes [id number] TAKE 1 K elsey 25 MG oral 2-20 TABLET(25 Seyb old Tablet 00:00: MG) BY - 00 MOUTH IN Externa THE l MORNING AND IN THE EVENING WITH MEALS Carvedilol 0 Yes [id number] TAKE 1 K elsey 25 MG oral 2-20 TABLET(25 Seyb old Tablet 00:00: MG) BY - 00 MOUTH IN Externa THE l MORNING AND IN THE EVENING WITH MEALS Carvedilol 0 Yes [id number] TAKE 1 K elsey 25 MG oral 2-20 TABLET(25 Seyb old Tablet 00:00: MG) BY - 00 MOUTH IN Externa THE l MORNING AND IN THE EVENING WITH MEALS Carvedilol 0 Yes [id number] TAKE 1 K elsey 25 MG oral 2-20 TABLET(25 Seyb old Tablet 00:00: MG) BY - 00 MOUTH IN Externa THE l MORNING AND IN THE EVENING WITH MEALS Carvedilol 2022-0 2022- No [id number] TAKE 1 Anai 25 MG oral 2-20 07-06 TABLET(25 Sey bold Tablet 00:00: 00:00 MG) BY - 00 :00 MOUTH IN Externa THE l MORNING AND IN THE EVENING WITH MEALS Levothyroxi 2022-0 Yes [id number] TAKE 1 Anai ne Sodium 2-13 TABLET(112 Seyb old 112 MCG 00:00: MCG) BY - oral Tablet 00 MOUTH Externa EVERY l MORNING ON AN EMPTY STOMACH Levothyroxi 2022-0 Yes [id number] TAKE 1 Anai ne Sodium 2-13 TABLET(112 Seyb old 112 MCG 00:00: MCG) BY - oral Tablet 00 MOUTH Externa EVERY l MORNING ON AN EMPTY STOMACH Levothyroxi 2022-0 Yes [id number] TAKE 1 Anai ne Sodium 2-13 TABLET(112 Seyb old 112 MCG 00:00: MCG) BY - oral Tablet 00 MOUTH Externa EVERY l MORNING ON AN EMPTY STOMACH Famotidine 0 2022- No 20mg Take 20 mg Anai (PEPCID) 20 2-10 02-10 by mouth 2 S eybold MG oral 14:15: 00:00 times - tablet 32 :00 daily Externa l Umeclidiniu Yes [id number] Inhale 1 Anai m [place] 2-10 inhalation Seyb old (Incruse 13:39: into the - Ellipta) 22 lungs Externa 62.5 daily l MCG/INH inhalation AEROSOL POWDER, BREATH ACTIVATED Lidocaine 5 Yes Apply 1 Rakan sey % apply 2-10 applicatio Seybol d externally 13:39: n - Ointment 22 topically 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 l Semaglutide Yes [id number] .25mg Inject Anai (0.25 or 2-10 0.25 mg Seybold 0.5 00:00: into the - mg/dose) 2 00 skin once Exte rna mg/1.5 mL a week l SQ Solution Pen-Injecto r Semaglutide 0 Yes [id number] .25mg Inject Anai (0.25 or 2-10 0.25 [...] Cream AREA TWICE l DAILY Fluocinonid 3-0 2023- No APPLY Samia ey e 0.05 % 2-09 07-06 TOPICALLY Seybo ld apply 00:00: 00:00 TO THE - externally 00 :00 AFFECTED Exter na Cream AREA TWICE l DAILY Pantoprazol 3-0 2023- No Kelse y e Sodium 40 2- 02-10 Seybold MG oral 00:00: 00:00 - [...] 20mg Take 1 Kelse y (PEPCID) 20 -27 tablet (20 Se ybold MG oral 00:00: mg total) - tablet 00 by mouth Externa daily l Famotidine 2023-0 Yes 20mg Take 1 Kelse y (PEPCID) 20 -27 tablet (20 Se ybold MG oral 00:00: mg total) - tablet 00 by mouth Externa daily l Famotidine 2023-0 Yes 20mg Take 1 Kelse y (PEPCID) 20 -27 tablet (20 Se ybold MG oral 00:00: mg total) - tablet 00 by mouth Externa daily l Famotidine 3-0 2023- No 20mg Take 1 Samia ey (PEPCID) 20 - 07-06 tablet (20 S eybold MG oral 00:00: 00:00 mg total) - tablet 00 :00 by mouth Externa daily l Advair 2023-0 Yes Anai Diskus 1-22 Seybold 250-50 00:00: [...] inhalation l AEROSOL POWDER, BREATH ACTIVATED Advair 2023-0 Yes Anai Diskus 1-22 Seybold 250-50 00:00: - MCG/ACT 00 Externa inhalation l AEROSOL POWDER, BREATH ACTIVATED Advair 2023-0 Yes Anai Diskus 1-22 Seybold 250-50 00:00: - MCG/ACT 00 Externa inhalation l AEROSOL POWDER, BREATH ACTIVATED Advair 2023-0 Yes Anai Diskus 1-22 Seybold 250-50 00:00: - MCG/ACT 00 Externa inhalation l AEROSOL POWDER, BREATH ACTIVATED Advair 2023-0 2023- No Anai Hernandezus 1-22 07-06 Seybold 250-50 00:00: 00:00 - MCG/ACT 00 :00 Externa inhalation l AEROSOL POWDER, BREATH ACTIVATED Citalopram Yes [id number] TAKE 1 K elsey Hydrobromid 1-17 TABLET(10 Sey bold e 10 MG 00:00: MG) BY - oral Tablet 00 MOUTH Externa DAILY l Citalopram Yes [id number] TAKE 1 K elsey Hydrobromid 1-17 TABLET(10 Sey bold e 10 MG 00:00: MG) BY - oral Tablet 00 MOUTH Externa DAILY l Citalopram Yes [id number] TAKE 1 K elsey Hydrobromid 1-17 TABLET(10 Sey bold e 10 MG 00:00: MG) BY - oral Tablet 00 MOUTH Externa DAILY l Citalopram Yes [id number] TAKE 1 K elsey Hydrobromid 1-17 TABLET(10 Sey bold e 10 MG 00:00: MG) BY - oral Tablet 00 MOUTH Externa DAILY l Cetirizine 2021-07 Yes [id number] 5mg Take 1 K elsey HCl 5 MG 2-20 tablet (5 Seybol d oral Tablet 00:00: mg total) - 00 by mouth Externa daily l FLUTICASONE 2021-07 Yes [id number] 50ug Use 1 K elsey PROPIONATE, 2-20 spray (50 Sey bold NASAL, 50 00:00: mcg total) - MCG/ACT 00 in each Externa nasal nostril l Suspension daily Cetirizine 2021-07 Yes [id number] 5mg Take 1 K elsey HCl 5 MG 2-20 tablet (5 Seybol d oral Tablet 00:00: mg total) - 00 by mouth Externa daily l FLUTICASONE 2021-07 Yes [id number] 50ug Use 1 K elsey PROPIONATE, 2-20 spray (50 Sey bold NASAL, 50 00:00: mcg total) - MCG/ACT 00 in each Externa nasal nostril l Suspension daily Cetirizine 2021-07 Yes [id number] 5mg Take 1 K elsey HCl 5 MG 2-20 tablet (5 Seybol d oral Tablet 00:00: mg total) - 00 by mouth Externa daily l FLUTICASONE 2021-07 Yes [id number] 50ug Use 1 K elsey PROPIONATE, 2-20 spray (50 Sey bold NASAL, 50 00:00: mcg total) - MCG/ACT 00 in each Externa nasal nostril l Suspension daily Cetirizine 2021-07 Yes [id number] 5mg Take 1 K elsey HCl 5 MG 2-20 tablet (5 Seybol d oral Tablet 00:00: mg total) - 00 by mouth Externa daily l FLUTICASONE 2021-07 Yes [id number] 50ug Use 1 K elsey PROPIONATE, 2-20 spray (50 Sey bold NASAL, 50 00:00: mcg total) - MCG/ACT 00 in each Externa nasal nostril l Suspension daily Cetirizine 2021-07 Yes [id number] 5mg Take 1 K elsey HCl 5 MG 2-20 tablet (5 Seybol d oral Tablet 00:00: mg total) - 00 by mouth Externa daily l FLUTICASONE 2021-07 Yes [id number] 50ug Use 1 K elsey PROPIONATE, 2-20 spray (50 Sey bold NASAL, 50 00:00: mcg total) - MCG/ACT 00 in each Externa nasal nostril l Suspension daily Cetirizine 2021-07 Yes [id number] 5mg Take 1 K elsey HCl 5 MG 2-20 tablet (5 Seybol d oral Tablet 00:00: mg total) - 00 by mouth Externa daily l FLUTICASONE 2021-07 Yes [id number] 50ug Use 1 K elsey PROPIONATE, 2-20 spray (50 Sey bold NASAL, 50 00:00: mcg total) - MCG/ACT 00 in each Externa nasal nostril l Suspension daily Cetirizine 2021-07 Yes [id number] 5mg Take 1 K elsey HCl 5 MG 2-20 tablet (5 Seybol d oral Tablet 00:00: mg total) - 00 by mouth Externa daily l FLUTICASONE 2021-07 Yes [id number] 50ug Use 1 K elsey PROPIONATE, 2-20 spray (50 Sey bold NASAL, 50 00:00: mcg total) - MCG/ACT 00 in each Externa nasal nostril l Suspension daily Cetirizine 2021-07 Yes [id number] 5mg Take 1 K elsey HCl 5 MG 2-20 tablet (5 Seybol d oral Tablet 00:00: mg total) - 00 by mouth Externa daily l FLUTICASONE 2021-07 Yes [id number] 50ug Use 1 K elsey PROPIONATE, 2-20 spray (50 Sey bold NASAL, 50 00:00: mcg total) - MCG/ACT 00 in each Externa nasal nostril l Suspension daily FLUTICASONE 2021-07- No [id number] 50ug Use 1 Anai PROPIONATE, 2-20 07-06 spray (50 Se ybold NASAL, 50 00:00: 00:00 mcg total) - MCG/ACT 00 :00 in each Externa nasal nostril l Suspension daily FLUTICASONE 2021-07 Yes [id number] 50ug Use 1 K elsey PROPIONATE, 1-29 spray (50 Sey bold NASAL, 50 00:00: mcg total) - MCG/ACT 00 in each Externa nasal nostril l Suspension daily FLUTICASONE 2021-07- No [id number] 50ug Use 1 Anai PROPIONATE, 1-29 12-20 spray (50 Se ybold NASAL, 50 00:00: 00:00 mcg total) - MCG/ACT 00 :00 in each Externa nasal nostril l Suspension daily Levothyroxi 2021-07 Yes [id number] TAKE 1 Anai ne Sodium 1-07 TABLET(112 Seyb old 112 MCG 00:00: MCG) BY - oral Tablet 00 MOUTH Externa EVERY l MORNING ON AN EMPTY STOMACH Levothyroxi 2021-07 Yes [id number] TAKE 1 Anai ne Sodium 1-07 TABLET(112 Seyb old 112 MCG 00:00: MCG) BY - oral Tablet 00 MOUTH Externa EVERY l MORNING ON AN EMPTY STOMACH Levothyroxi 2021-07 Yes [id number] TAKE 1 Anai ne Sodium 1-07 TABLET(112 Seyb old 112 MCG 00:00: MCG) BY - oral Tablet 00 MOUTH Externa EVERY l MORNING ON AN EMPTY STOMACH Spironolact 2021-07 Yes [id number] TAKE 1 Anai one 25 MG 0-19 TABLET(25 Seybo ld oral Tablet 00:00: MG) BY - 00 MOUTH Externa DAILY l Spironolact 2021-07 Yes [id number] TAKE 1 Anai one 25 MG 0-19 TABLET(25 Seybo ld oral Tablet 00:00: MG) BY - 00 MOUTH Externa DAILY l Spironolact 2021-07 Yes [id number] TAKE 1 Anai one 25 MG 0-19 TABLET(25 Seybo ld oral Tablet 00:00: MG) BY - 00 MOUTH Externa DAILY l Spironolact 2021-07 Yes [id number] TAKE 1 Anai one 25 MG 0-19 TABLET(25 Seybo ld oral Tablet 00:00: MG) BY - 00 MOUTH Externa DAILY l Spironolact 2021-07 Yes [id number] TAKE 1 Anai one 25 MG 0-19 TABLET(25 Seybo ld oral Tablet 00:00: MG) BY - 00 MOUTH Externa DAILY l Spironolact 2021-07 Yes [id number] TAKE 1 Anai one 25 MG 0-19 TABLET(25 Seybo ld oral Tablet 00:00: MG) BY - 00 MOUTH Externa DAILY l Umeclidiniu 0 Yes [id number] Inhale 1 Anai m [place] 9-29 inhalation Seyb old (Incruse 08:57: into the - Ellipta) 43 lungs Externa 62.5 daily l MCG/INH inhalation AEROSOL POWDER, BREATH ACTIVATED Lidocaine Yes Apply 1 Rakan sey % apply 04-26 applicatio Seybol d externally 08:57: n - Ointment 43 topically 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 l Umeclidiniu 2021-0 Yes [id number] Inhale 1 Anai m [place] 9-29 inhalation Seyb old (Incruse 08:57: into the - Ellipta) 43 lungs Externa 62.5 daily l MCG/INH inhalation AEROSOL POWDER, BREATH ACTIVATED Lidocaine Yes Apply 1 Rakan sey % apply 04-26 applicatio Seybol d externally 08:57: n - Ointment 43 topically 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 l Umeclidiniu 2021-0 Yes [id number] Inhale 1 Anai m [place] 9-29 inhalation Seyb old (Incruse 08:57: into the - Ellipta) 43 lungs Externa 62.5 daily l MCG/INH inhalation AEROSOL POWDER, BREATH ACTIVATED Lidocaine 2021- Yes Apply 1 Rakan sey % apply 04-26 applicatio Seybol d externally 08:57: n - Ointment 43 topically 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 l Triamcinolo 2021- No [id number] Apply to Anai ne 9-29 10-28 affected Seybold Acetonide 00:00: 04:59 skin twice - 0.1 % apply 00 :00 daily for Ext lalitha externally 14 days. l Cream Atorvastati Yes [id number] 10mg Take 1 Anai n Calcium 9-12 tablet (10 Seyb old (Lipitor) 00:00: mg total) - 10 MG oral 00 by mouth Exter na Tablet daily l Atorvastati Yes [id number] 10mg Take 1 Anai n Calcium 9-12 tablet (10 Seyb old (Lipitor) 00:00: mg total) - 10 MG oral 00 by mouth Exter na Tablet daily l Atorvastati Yes [id number] 10mg Take 1 Anai n Calcium 9-12 tablet (10 Seyb old (Lipitor) 00:00: mg total) - 10 MG oral 00 by mouth Exter na Tablet daily l Citalopram Yes [id number] 10mg Take 1 K elsey Hydrobromid 9-12 tablet (10 Se ybold e (CeleXA) 00:00: mg total) - 10 MG oral 00 by mouth Exter na Tablet daily l Atorvastati Yes [id number] 10mg Take 1 Anai n Calcium 9-12 tablet (10 Seyb old (Lipitor) 00:00: mg total) - 10 MG oral 00 by mouth Exter na Tablet daily l Citalopram 0 Yes [id number] 10mg Take 1 K elsey Hydrobromid 9-12 tablet (10 Se ybold e (CeleXA) 00:00: mg total) - 10 MG oral 00 by mouth Exter na Tablet daily l Atorvastati 0 Yes [id number] 10mg Take 1 Anai n Calcium 9-12 tablet (10 Seyb old (Lipitor) 00:00: mg total) - 10 MG oral 00 by mouth Exter na Tablet daily l Citalopram 0 Yes [id number] 10mg Take 1 K elsey Hydrobromid 9-12 tablet (10 Se ybold e (CeleXA) 00:00: mg total) - 10 MG oral 00 by mouth Exter na Tablet daily l Atorvastati 2021-0 Yes [id number] 10mg Take 1 Anai n Calcium 9-12 tablet (10 Seyb old (Lipitor) 00:00: mg total) - 10 MG oral 00 by mouth Exter na Tablet daily l Atorvastati 2021-0 Yes [id number] 10mg Take 1 Anai n Calcium 9-12 tablet (10 Seyb old (Lipitor) 00:00: mg total) - 10 MG oral 00 by mouth Exter na Tablet daily l Atorvastati 2021-0 Yes [id number] 10mg Take 1 Anai n Calcium 9-12 tablet (10 Seyb old (Lipitor) 00:00: mg total) - 10 MG oral 00 by mouth Exter na Tablet daily l Atorvastati 2021-0 Yes [id number] 10mg Take 1 Anai n Calcium 9-12 tablet (10 Seyb old (Lipitor) 00:00: mg total) - 10 MG oral 00 by mouth Exter na Tablet daily l Atorvastati 2021-0 Yes [id number] 10mg Take 1 Anai n Calcium 9-12 tablet (10 Seyb old (Lipitor) 00:00: mg total) - 10 MG oral 00 by mouth Exter na Tablet daily l Atorvastati 2021-0 Yes [id number] 10mg Take 1 Anai n Calcium 9-12 tablet (10 Seyb old (Lipitor) 00:00: mg total) - 10 MG oral 00 by mouth Exter na Tablet daily l Atorvastati 2021-0 Yes [id number] 10mg Take 1 Anai n Calcium 9-12 tablet (10 Seyb old (Lipitor) 00:00: mg total) - 10 MG oral 00 by mouth Exter na Tablet daily l Atorvastati 2021-0 Yes [id number] 10mg Take 1 Anai n Calcium 9-12 tablet (10 Seyb old (Lipitor) 00:00: mg total) - 10 MG oral 00 by mouth Exter na Tablet daily l Atorvastati 2021-0 Yes [id number] 10mg Take 1 Anai n Calcium 9-12 tablet (10 Seyb old (Lipitor) 00:00: mg total) - 10 MG oral 00 by mouth Exter na Tablet daily l Atorvastati 2021-0 Yes [id number] 10mg Take 1 Anai n Calcium 9-12 tablet (10 Seyb old (Lipitor) 00:00: mg total) - 10 MG oral 00 by mouth Exter na Tablet daily l Atorvastati 2021-0 Yes [id number] 10mg Take 1 Anai n Calcium 9-12 tablet (10 Seyb old (Lipitor) 00:00: mg total) - 10 MG oral 00 by mouth Exter na Tablet daily l Atorvastati 0 Yes [id number] 10mg Take 1 Anai n Calcium 9-12 tablet (10 Seyb old (Lipitor) 00:00: mg total) - 10 MG oral 00 by mouth Exter na Tablet daily l Carvedilol Yes [id number] 25mg Take 1 K elsey 25 MG oral 9-02 tablet (25 Sey bold Tablet 00:00: mg total) - 00 by mouth Externa in the l morning and 1 tablet (25 mg total) in the evening. Take with meals. Carvedilol Yes [id number] 25mg Take 1 K elsey 25 MG oral 9-02 tablet (25 Sey bold Tablet 00:00: mg total) - 00 by mouth Externa in the l morning and 1 tablet (25 mg total) in the evening. Take with meals. Carvedilol Yes [id number] 25mg Take 1 K elsey 25 MG oral 9-02 tablet (25 Sey bold Tablet 00:00: mg total) - 00 by mouth Externa in the l morning and 1 tablet (25 mg total) in the evening. Take with meals. Carvedilol Yes [id number] 25mg Take 1 K elsey 25 MG oral 9-02 tablet (25 Sey bold Tablet 00:00: mg total) - 00 by mouth Externa in the l morning and 1 tablet (25 mg total) in the evening. Take with meals. Pantoprazol 2021-0 Yes 40mg Take 40 mg Anai e Sodium 40 8-24 by mouth Seyb old MG oral 00:00: daily - Tablet 00 Externa Delayed l Response Pantoprazol 2021-0 Yes 40mg Take 40 mg Anai e Sodium 40 8-24 by mouth Seyb old MG oral 00:00: daily - Tablet 00 Externa Delayed l Response Pantoprazol 0 2- No 40mg Take 40 mg Anai e Sodium 40 8-24 12-20 by mouth Sey bold MG oral 00:00: 00:00 daily - Tablet 00 :00 Externa Delayed l Response FLUTICASONE 0 Yes [id number] 50ug Use 1 K elsey PROPIONATE, 8-10 spray (50 Sey bold NASAL, 50 00:00: mcg total) - MCG/ACT 00 in each Externa nasal nostril l Suspension daily glipiZIDE Yes [id number] 10mg Take 1 Ke lsey 10 MG oral 8-10 tablet (10 Sey bold Tablet 00:00: mg total) - 00 by mouth 2 Externa times l daily Omeprazole 0 Yes [id number] 40mg Take 1 Anai 40 MG oral 8-10 capsule Seybol d Delayed 00:00: (40 mg - Release 00 total) by Externa Capsule mouth l daily glipiZIDE Yes [id number] 10mg Take 1 Ke lsey 10 MG oral 8-10 tablet (10 Sey bold Tablet 00:00: mg total) - 00 by mouth 2 Externa times l daily Omeprazole 0 Yes [id number] 40mg Take 1 Anai 40 MG oral 8-10 capsule Seybol d Delayed 00:00: (40 mg - Release 00 total) by Externa Capsule mouth l daily glipiZIDE 0 Yes [id number] 10mg Take 1 Ke lsey 10 MG oral 8-10 tablet (10 Sey bold Tablet 00:00: mg total) - 00 by mouth 2 Externa times l daily Omeprazole 2021-0 Yes [id number] 40mg Take 1 Anai 40 MG oral 8-10 capsule Seybol d Delayed 00:00: (40 mg - Release 00 total) by Externa Capsule mouth l daily glipiZIDE 0 Yes [id number] 10mg Take 1 Ke lsey 10 MG oral 8-10 tablet (10 Sey bold Tablet 00:00: mg total) - 00 by mouth 2 Externa times l daily glipiZIDE 0 Yes [id number] 10mg Take 1 Ke lsey 10 MG oral 8-10 tablet (10 Sey bold Tablet 00:00: mg total) - 00 by mouth 2 Externa times l daily Omeprazole 2021-0 2023- No [id number] 40mg Take 1 Anai 40 MG oral 8-10 02-10 capsule Seybo ld Delayed 00:00: 00:00 (40 mg - Release 00 :00 total) by Externa Capsule mouth l daily FLUTICASONE 0 202- No [id number] 50ug Use 1 Anai PROPIONATE, 03-07 spray (50 Se ybold NASAL, 50 00:00: 00:00 mcg total) - MCG/ACT 00 :00 in each Externa nasal nostril l Suspension daily Levothyroxi 2021-0 Yes [id number] 112ug Take 1 Anai ne Sodium -29 tablet Seybold 112 MCG 00:00: (112 mcg - oral Tablet 00 total) by Ext lalitha mouth l every morning ON AN EMPTY STOMACH Metformin 0 Yes [id number] 1000mg Take 1 Anai HCl 1000 MG 7-25 tablet Seybol d oral Tablet 00:00: (1,000 mg - 00 total) by Externa mouth in l the morning and 1 tablet (1,000 mg total) in the evening. Take with meals. Metformin 0 Yes [id number] 1000mg Take 1 Anai HCl 1000 MG 7-25 tablet Seybol d oral Tablet 00:00: (1,000 mg - 00 total) by Externa mouth in l the morning and 1 tablet (1,000 mg total) in the evening. Take with meals. Metformin 0 Yes [id number] 1000mg Take 1 Anai HCl 1000 MG 7-25 tablet Seybol d oral Tablet 00:00: (1,000 mg - 00 total) by Externa mouth in l the morning and 1 tablet (1,000 mg total) in the evening. Take with meals. Metformin 0 Yes [id number] 1000mg Take 1 Anai HCl 1000 MG 7-25 tablet Seybol d oral Tablet 00:00: (1,000 mg - 00 total) by Externa mouth in l the morning and 1 tablet (1,000 mg total) in the evening. Take with meals. Metformin 0 Yes [id number] 1000mg Take 1 Anai HCl 1000 MG 7-25 tablet Seybol d oral Tablet 00:00: (1,000 mg - 00 total) by Externa mouth in l the morning and 1 tablet (1,000 mg total) in the evening. Take with meals. Metformin 2021-0 Yes [id number] 1000mg Take 1 Anai HCl 1000 MG 7-25 tablet Seybol d oral Tablet 00:00: (1,000 mg - 00 total) by Externa mouth in l the morning and 1 tablet (1,000 mg total) in the evening. Take with meals. Metformin 2021-0 Yes [id number] 1000mg Take 1 Anai HCl 1000 MG 7-25 tablet Seybol d oral Tablet 00:00: (1,000 mg - 00 total) by Externa mouth in l the morning and 1 tablet (1,000 mg total) in the evening. Take with meals. Dapaglifloz Yes [id number] 1{each} Take 1 Anai in 01-26 each by Seybold Propanediol 00:00: mouth - (Farxiga) 5 00 daily Externa MG oral l Tablet Dapaglifloz Yes [id number] 1{each} Take 1 Anai in 01-26 each by Seybold Propanediol 00:00: mouth - (Farxiga) 5 00 daily Externa MG oral l Tablet Dapaglifloz 0 Yes [id number] 1{each} Take 1 Anai in 01-26 each by Seybold Propanediol 00:00: mouth - (Farxiga) 5 00 daily Externa MG oral l Tablet Dapaglifloz 0 2023- No [id number] 1{each} Take 1 Anai in 01-26 02-10 each by Seybold Propanediol 00:00: 00:00 mouth - (Farxiga) 5 00 :00 daily Externa MG oral l Tablet Furosemide 2021-0 Yes [id number] 40mg Take 1 Anai (Lasix) 40 6-29 tablet (40 Sey bold MG oral 00:00: mg total) - Tablet 00 by mouth Externa daily l Furosemide 2021-0 Yes [id number] 40mg Take 1 Anai (Lasix) 40 6-29 tablet (40 Sey bold MG oral 00:00: mg total) - Tablet 00 by mouth Externa daily l Furosemide 2021-0 Yes [id number] 40mg Take 1 Anai (Lasix) 40 6-29 tablet (40 Sey bold MG oral 00:00: mg total) - Tablet 00 by mouth Externa daily l Furosemide 2021-0 Yes [id number] 40mg Take 1 Anai (Lasix) 40 6-29 tablet (40 Sey bold MG oral 00:00: mg total) - Tablet 00 by mouth Externa daily l Furosemide 0 Yes [id number] 40mg Take 1 Anai (Lasix) 40 6-29 tablet (40 Sey bold MG oral 00:00: mg total) - Tablet 00 by mouth Externa daily l Furosemide 0 Yes [id number] 40mg Take 1 Anai (Lasix) 40 6-29 tablet (40 Sey bold MG oral 00:00: mg total) - Tablet 00 by mouth Externa daily l Furosemide 0 Yes [id number] 40mg Take 1 Anai (Lasix) 40 6-29 tablet (40 Sey bold MG oral 00:00: mg total) - Tablet 00 by mouth Externa daily l Furosemide 0 2023- No [id number] 40mg Take 1 Anai (Lasix) 40 6-29 [...] hours as l needed FOR PAIN Tramadol 2022-0 Yes 1{tbl} Q.25D Take 1 Samia ey HCl 50 MG 5-25 tablet by Aguedao ld oral Tablet 00:00: mouth - 00 [...] 250 2021-0 2022- No APPLY TO Richard keeneey UNIT/GM 5-04 07-06 WOUND Seybold apply 00:00: 00:00 EVERY DAY - externally 00 :00 Externa Ointment l Mupirocin 2021-0 Yes [id number] Apply 1 Anai (BACTROBAN) 11-24 applicatio Se ybold 2 % apply 00:00: n externally 00 topically Ointment 2 times daily levoFLOXaci 2-0 Yes [id number] 500mg Take 1 Anai n 11-24 tablet Seybold (Levaquin) 00:00: (500 mg 500 MG oral 00 total) by Tablet mouth daily Minocycline 2-0 Yes [id number] 100mg Take 1 Anai HCl 100 MG 11-24 capsule Seybol d oral 00:00: (100 mg Capsule 00 total) by mouth in the morning and 1 capsule (100 mg total) in the evening. Mupirocin 2-0 Yes [id number] Apply 1 Anai (BACTROBAN) 11-24 applicatio Se ybold 2 % apply 00:00: n - externally 00 topically Exte rna Ointment 2 times l daily Minocycline 2-0 Yes [id number] 100mg Take 1 Anai HCl 100 MG 11-24 capsule Seybol d oral 00:00: (100 mg - Capsule 00 total) by Externa mouth in l the morning and 1 capsule (100 mg total) in the evening. Mupirocin 2-0 Yes [id number] Apply 1 Anai (BACTROBAN) 11-24 applicatio Se ybold 2 % apply 00:00: n - externally 00 topically Exte rna Ointment 2 times l daily Minocycline 2-0 Yes [id number] 100mg Take 1 Anai HCl 100 MG 11-24 capsule Seybol d oral 00:00: (100 mg - Capsule 00 total) by Externa mouth in l the morning and 1 capsule (100 mg total) in the evening. Mupirocin 2022-0 Yes [id number] Apply 1 Anai (BACTROBAN) 11-24 applicatio Se ybold 2 % apply 00:00: n - externally 00 topically Exte rna Ointment 2 times l daily Minocycline 2022-0 Yes [id number] 100mg Take 1 Anai HCl 100 MG 11-2401 capsule Seybol d oral 00:00: (100 mg - Capsule 00 total) by Externa mouth in l the morning and 1 capsule (100 mg total) in the evening. Mupirocin 2022-0 Yes [id number] Apply 1 Anai (BACTROBAN) 11-24 applicatio Se ybold 2 % apply 00:00: n - externally 00 topically Exte rna Ointment 2 times l daily Minocycline 2-0 Yes [id number] 100mg Take 1 Anai HCl 100 MG 11-24 capsule Seybol d oral 00:00: (100 mg - Capsule 00 total) by Externa mouth in l the morning and 1 capsule (100 mg total) in the evening. Mupirocin 2022-0 Yes [id number] Apply 1 Anai (BACTROBAN) 11-24 applicatio Se ybold 2 % apply 00:00: n - externally 00 topically Exte rna Ointment 2 times l daily Minocycline 2-0 Yes [id number] 100mg Take 1 Anai HCl 100 MG 11-24 capsule Seybol d oral 00:00: (100 mg - Capsule 00 total) by Externa mouth in l the morning and 1 capsule (100 mg total) in the evening. Mupirocin 2-0 Yes [id number] Apply 1 Anai (BACTROBAN) 11-24 applicatio Se ybold 2 % apply 00:00: n - externally 00 topically Exte rna Ointment 2 times l daily Minocycline 2-0 Yes [id number] 100mg Take 1 Anai HCl 100 MG 11-24 capsule Seybol d oral 00:00: (100 mg - Capsule 00 total) by Externa mouth in l the morning and 1 capsule (100 mg total) in the evening. Mupirocin 2-0 Yes [id number] Apply 1 Anai (BACTROBAN) 11-24 applicatio Se ybold 2 % apply 00:00: n - externally 00 topically Exte rna Ointment 2 times l daily Minocycline 2022-0 Yes [id number] 100mg Take 1 Anai HCl 100 MG 11-2401 capsule Seybol d oral 00:00: (100 mg - Capsule 00 total) by Externa mouth in l the morning and 1 capsule (100 mg total) in the evening. Mupirocin 2022-0 Yes [id number] Apply 1 Anai (BACTROBAN) 11-24 applicatio Se ybold 2 % apply 00:00: n - externally 00 topically Exte rna Ointment 2 times l daily Minocycline 2021-0 Yes [id number] 100mg Take 1 Anai HCl 100 MG 11-24 capsule Seybol d oral 00:00: (100 mg - Capsule 00 total) by Externa mouth in l the morning and 1 capsule (100 mg total) in the evening. Mupirocin 2021-0 Yes [id number] Apply 1 Anai (BACTROBAN) 11-24 applicatio Se ybold 2 % apply 00:00: n - externally 00 topically Exte rna Ointment 2 times l daily Minocycline 2021-0 Yes [id number] 100mg Take 1 Anai HCl 100 MG 11-24 capsule Seybol d oral 00:00: (100 mg - Capsule 00 total) by Externa mouth in l the morning and 1 capsule (100 mg total) in the evening. Mupirocin 2021-0 Yes [id number] Apply 1 Anai (BACTROBAN) 11-24 applicatio Se ybold 2 % apply 00:00: n - externally 00 topically Exte rna Ointment 2 times l daily Minocycline 2021-0 Yes [id number] 100mg Take 1 Anai HCl 100 MG 11-24 capsule Seybol d oral 00:00: (100 mg - Capsule 00 total) by Externa mouth in l the morning and 1 capsule (100 mg total) in the evening. Mupirocin 2021-0 3- No [id number] Apply 1 Anai (BACTROBAN) 11-24 applicatio S eybold 2 % apply 00:00: 00:00 n - externally 00 :00 topically Exte rna Ointment 2 times l daily Minocycline 2021-0 2023- No [id number] 100mg Take 1 Anai HCl 100 MG 11-24 91 capsule Seybo ld oral 00:00: 00:00 (100 mg - Capsule 00 :00 total) by Externa mouth in l the morning and 1 capsule (100 mg total) in the evening. linaGLIPtin 2021-0 Yes [id number] 1{tbl} Take 1 Anai (Tradjenta) - tablet by Olivier tran 5 MG oral 00:00: mouth Tablet 00 daily Empaglifloz 2021-0 Yes [id number] 1{each} Take 1 Anai in -26 each by Seybold (Jardiance) 00:00: mouth 10 MG oral 00 daily Tablet linaGLIPtin 2021-0 Yes [id number] 1{tbl} Take 1 Anai (Tradjenta) 4-26 tablet by Sey bold 5 MG oral 00:00: mouth - Tablet 00 daily Externa l linaGLIPtin 2021-0 Yes [id number] 1{tbl} Take 1 Anai (Tradjenta) - tablet by Sey bold 5 MG oral 00:00: mouth - Tablet 00 daily Externa l linaGLIPtin 2021-0 Yes [id number] 1{tbl} Take 1 Anai (Tradjenta) 4- tablet by Sey bold 5 MG oral 00:00: mouth - Tablet 00 daily Externa l linaGLIPtin 2021-0 2023- No [id number] 1{tbl} Take 1 Anai (Tradjenta) - 02-10 tablet by Se ybold 5 MG oral 00:00: 00:00 mouth - Tablet 00 :00 daily Externa l Umeclidiniu 2021-0 Yes [id number] Inhale 1 Anai m [place] 4-21 inhalation Seyb old (Incruse 08:13: into the Ellipta) 06 lungs 62.5 daily MCG/INH inhalation AEROSOL POWDER, BREATH ACTIVATED Lidocaine 5 Yes Apply 1 Rakan sey % apply - applicatio Seybol d externally 08:13: n Ointment 06 topically as needed Umeclidiniu 2021-0 Yes [id number] Inhale 1 Anai m [place] 4-21 inhalation Seyb old (Incruse 08:13: into the Ellipta) 06 lungs 62.5 daily MCG/INH inhalation AEROSOL POWDER, BREATH ACTIVATED Lidocaine Yes Apply 1 Rakan sey % apply - applicatio Seybol d externally 08:13: n Ointment 06 topically as needed Empaglifloz 2021-0 Yes [id number] 1{tbl} Take 1 Anai in 4-21 tablet by Seybold (Jardiance) 00:00: mouth 25 MG oral 00 daily Tablet Cetirizine 0 Yes [id number] 5mg Take 1 K elsey HCl 5 MG 4-21 tablet (5 Seybol d oral Tablet 00:00: mg total) 00 by mouth daily Cetirizine 2022-0 Yes [id number] 5mg Take 1 K elsey HCl 5 MG 4-21 tablet (5 Seybol d oral Tablet 00:00: mg total) 00 by mouth daily Cetirizine 2022-0 Yes [id number] 5mg Take 1 K elsey HCl 5 MG 4-21 tablet (5 Seybol d oral Tablet 00:00: mg total) - 00 by mouth Externa daily l Cetirizine 2-0 Yes [id number] 5mg Take 1 K elsey HCl 5 MG 4-21 tablet (5 Seybol d oral Tablet 00:00: mg total) - 00 by mouth Externa daily l Cetirizine 2-0 2022- No [id number] 5mg Take 1 Anai HCl 5 MG 4-21 12-20 tablet (5 Seybo ld oral Tablet 00:00: 00:00 mg total) - 00 :00 by mouth Externa daily l Cephalexin 2-0 Yes TAKE 1 Kelse y 500 MG [...] as l needed FOR PAIN Acetaminoph 2022-0 3- No 1{tbl} Q.25D Take 1 Anai en-Codeine 4-11 04-06 tablet by y bold #3 300-30 00:00: 00:00 mouth - MG oral 00 :00 every 6 Externa Tablet hours as l needed FOR PAIN Umeclidiniu 2021-0 Yes [id number] Inhale 1 Anai m [place] 4-05 inhalation Seyb old (Incruse 09:30: into the Ellipta) 53 lungs 62.5 daily MCG/INH inhalation AEROSOL POWDER, BREATH ACTIVATED Spironolact 2021-0 Yes [id number] 25mg Take 1 Anai one 25 MG 4-05 tablet (25 Seyb old oral Tablet 00:00: mg total) 00 by mouth daily Furosemide 2021-0 Yes 40mg Take 1 Kelse y (Lasix) 40 4-05 tablet (40 Sey bold MG oral 00:00: mg total) Tablet 00 by mouth daily Spironolact 2021-0 Yes [id number] 25mg Take 1 Anai one 25 MG 4-05 tablet (25 Seyb old oral Tablet 00:00: mg total) 00 by mouth daily Furosemide 2021-0 Yes 40mg Take 1 Kelse y (Lasix) 40 4-05 tablet (40 Sey bold MG oral 00:00: mg total) Tablet 00 by mouth daily Spironolact 2021-0 Yes [id number] 25mg Take 1 Anai one 25 MG 4-05 tablet (25 Seyb old oral Tablet 00:00: mg total) - 00 by mouth Externa daily l Spironolact 2021-0 Yes [id number] 25mg Take 1 Anai one 25 MG 4-05 tablet (25 Seyb old oral Tablet 00:00: mg total) 00 by mouth daily Furosemide 2021-0 Yes [id number] 40mg Take 1 K elsey (Lasix) 40 4-05 tablet (40 Sey bold MG oral 00:00: mg total) Tablet 00 by mouth daily Clotrimazol 2021-0 Yes APPLY Kelse y e 1 % apply 3-29 TOPICALLY Sey bold externally 00:00: TO Cream 00 AFFECTED AREA EVERY 12 HOURS Clotrimazol 2021-0 Yes APPLY Kelse y e 1 % apply 3-29 TOPICALLY Sey bold externally 00:00: TO Cream 00 AFFECTED AREA EVERY 12 HOURS Clotrimazol 2021-0 Yes APPLY Kelse y e 1 % apply 3-29 TOPICALLY Sey bold externally 00:00: TO - Cream 00 AFFECTED Externa AREA EVERY l 12 HOURS Clotrimazol 2021-0 Yes APPLY Kelse y e 1 % apply 3-29 TOPICALLY Sey bold externally 00:00: TO - Cream 00 AFFECTED Externa AREA EVERY l 12 HOURS Clotrimazol 2021-0 Yes APPLY Kelse y e 1 % apply 3-29 TOPICALLY Sey bold externally 00:00: TO - Cream 00 AFFECTED Externa AREA EVERY l 12 HOURS Clotrimazol 2021-0 Yes APPLY Kelse y e 1 % apply 3-29 TOPICALLY Sey bold externally 00:00: TO - Cream 00 AFFECTED Externa AREA EVERY l 12 HOURS Clotrimazol 2021-0 Yes APPLY Kelse y e 1 % apply 3-29 TOPICALLY Sey bold externally 00:00: TO - Cream 00 AFFECTED Externa AREA EVERY l 12 HOURS Clotrimazol 0 Yes APPLY Kelse y e 1 % apply 3-29 TOPICALLY Sey bold externally 00:00: TO - Cream 00 AFFECTED Externa AREA EVERY l 12 HOURS Clotrimazol 2021-0 Yes APPLY Kelse y e 1 % apply 3-29 TOPICALLY Sey bold externally 00:00: TO - Cream 00 AFFECTED Externa AREA EVERY l 12 HOURS Clotrimazol 2021-0 Yes APPLY Kelse y e 1 % apply 3-29 TOPICALLY Sey bold externally 00:00: TO - Cream 00 AFFECTED Externa AREA EVERY l 12 HOURS Clotrimazol 0 Yes APPLY Kelse y e 1 % apply 3-29 TOPICALLY Sey bold externally 00:00: TO - Cream 00 AFFECTED Externa AREA EVERY l 12 HOURS Clotrimazol 2021-0 Yes APPLY Kelse y e 1 % apply 3-29 TOPICALLY Sey bold externally 00:00: TO - Cream 00 AFFECTED Externa AREA EVERY l 12 HOURS Clotrimazol 2021-0 Yes APPLY Kelse y e 1 % apply 3-29 TOPICALLY Sey bold externally 00:00: TO Cream 00 AFFECTED AREA EVERY 12 HOURS Clotrimazol 0 2022- No APPLY Samia ey e 1 % apply 3-29 07-06 TOPICALLY Se ybold externally 00:00: 00:00 TO - Cream 00 :00 AFFECTED Externa AREA EVERY l 12 HOURS Spironolact 2021-0 2021- No [id number] 12.5mg Take 0.5 Anai one 25 MG 2-28 04-05 tablets Seybol d oral Tablet 00:00: 00:00 (12.5 mg 00 :00 total) by mouth daily Carvedilol 2021- No 25mg Take 25 mg Anai 25 MG oral 2-18 02-18 by mouth 2 Se ybold Tablet 14:30: 00:00 times 25 :00 daily (with meals) Umeclidiniu 0 Yes Inhale 1 Ke lsey m [place] 2-18 inhalation Seyb old (Incruse 14:18: into the Ellipta) 48 lungs 62.5 daily MCG/INH inhalation AEROSOL POWDER, BREATH ACTIVATED Carvedilol Yes [id number] 25mg Take 1 K elsey 25 MG oral 2-18 tablet (25 Sey bold Tablet 00:00: mg total) 00 by mouth 2 times daily (with meals) Carvedilol 2-0 Yes [id number] 25mg Take 1 K elsey 25 MG oral 2-18 tablet (25 Sey bold Tablet 00:00: mg total) 00 by mouth 2 times daily (with meals) Carvedilol 2-0 Yes [id number] 25mg Take 1 K elsey 25 MG oral 2-18 tablet (25 Sey bold Tablet 00:00: mg total) 00 by mouth 2 times daily (with meals) Empaglifloz 2021-0 Yes [id number] 1{tbl} Take 1 Anai in 2-18 tablet by Seybold (Jardiance) 00:00: mouth 10 MG oral 00 daily Tablet Carvedilol 2021-0 Yes [id number] 25mg Take 1 K elsey 25 MG oral 2-18 tablet (25 Sey bold Tablet 00:00: mg total) 00 by mouth 2 times daily (with meals) Empaglifloz 2021-0 Yes [id number] 1{tbl} Take 1 Anai in 2-18 tablet by Seybold (Jardiance) 00:00: mouth 10 MG oral 00 daily Tablet Empaglifloz 2021-0 2- No [id number] 1{tbl} Take 1 Anai in 2-18 04-21 tablet by Seybold (Jardiance) 00:00: 00:00 mouth 10 MG oral 00 :00 daily Tablet Levothyroxi 2021-0 Yes [id number] 112ug Take 112 Anai ne Sodium 2-15 mcg by Seybold 112 MCG 00:00: mouth oral Tablet 00 every morning ON AN EMPTY STOMACH Metformin 2-0 Yes [id number] 1000mg Take 1,000 Anai HCl 1000 MG 2-15 mg by Seybold oral Tablet 00:00: mouth 2 00 times daily (with meals) Levothyroxi 2021-0 Yes [id number] 112ug Take 112 Anai ne Sodium 2-15 mcg by Seybold 112 MCG 00:00: mouth oral Tablet 00 every morning ON AN EMPTY STOMACH Metformin 2-0 Yes [id number] 1000mg Take 1,000 Anai HCl 1000 MG 2-15 mg by Seybold oral Tablet 00:00: mouth 2 00 times daily (with meals) Levothyroxi 2022-0 Yes 112ug Take 112 K elsey ne Sodium 2-15 mcg by Seybold 112 MCG 00:00: mouth oral Tablet 00 every morning ON AN EMPTY STOMACH Metformin Yes 1000mg Take 1,000 Anai HCl 1000 MG 2-15 mg by Seybold oral Tablet 00:00: mouth 2 00 times daily (with meals) Levothyroxi Yes [id number] 112ug Take 112 Anai ne Sodium 2-15 mcg by Seybold 112 MCG 00:00: mouth oral Tablet 00 every morning ON AN EMPTY STOMACH Metformin Yes [id number] 1000mg Take 1,000 Anai HCl 1000 MG 2-15 mg by Seybold oral Tablet 00:00: mouth 2 00 times daily (with meals) Xarelto 20 Yes [id number] TAKE 1 K elsey MG oral 1-21 TABLET BY Seybold Tablet 00:00: MOUTH 00 EVERY DAY WITH EVENING MEAL Xarelto 20 Yes [id number] TAKE 1 K elsey MG oral 1-21 TABLET BY Seybold Tablet 00:00: MOUTH 00 EVERY DAY WITH EVENING MEAL Xarelto 20 Yes [id number] TAKE 1 K elsey MG oral 1-21 TABLET BY Seybold Tablet 00:00: MOUTH - 00 EVERY DAY Externa WITH l EVENING MEAL Xarelto 20 Yes [id number] TAKE 1 K elsey MG oral 1-21 TABLET BY Seybold Tablet 00:00: MOUTH - 00 EVERY DAY Externa WITH l EVENING MEAL Xarelto 20 2021-0 Yes [id number] TAKE 1 K elsey MG oral 1-21 TABLET BY Seybold Tablet 00:00: MOUTH - 00 EVERY DAY Externa WITH l EVENING MEAL Xarelto 20 Yes TAKE 1 Kelse y MG oral 1-21 TABLET BY Seybold Tablet 00:00: MOUTH 00 EVERY DAY WITH EVENING MEAL Xarelto 20 2021- Yes [id number] TAKE 1 K elsey MG oral 1-21 TABLET BY Seybold Tablet 00:00: MOUTH - 00 EVERY DAY Externa WITH l EVENING MEAL Xarelto 20 2021- Yes [id number] TAKE 1 K elsey MG oral 1-21 TABLET BY Seybold Tablet 00:00: MOUTH - 00 EVERY DAY Externa WITH l EVENING MEAL Xarelto 20 2021-0 Yes [id number] TAKE 1 K elsey MG oral 1-21 TABLET BY Seybold Tablet 00:00: MOUTH - 00 EVERY DAY Externa WITH l EVENING MEAL Xarelto 20 2021-0 Yes [id number] TAKE 1 Anai MG oral 1-21 [id number] TABLET BY Seyb old Tablet 00:00: MOUTH - 00 EVERY DAY Externa WITH l EVENING MEAL Xarelto 20 2021-0 Yes [id number] TAKE 1 Anai MG oral 1-21 [id number] TABLET BY Seyb old Tablet 00:00: MOUTH - 00 EVERY DAY Externa WITH l EVENING MEAL Xarelto 20 2021-0 Yes [id number] TAKE 1 Anai MG oral 1-21 [id number] TABLET BY Seyb old Tablet 00:00: MOUTH - 00 EVERY DAY Externa WITH l EVENING MEAL Xarelto 20 2021-0 Yes [id number] TAKE 1 Anai MG oral 1-21 [id number] TABLET BY Seyb old Tablet 00:00: MOUTH - 00 EVERY DAY Externa WITH l EVENING MEAL Xarelto 2021-0 Yes [id number] TAKE 1 K elsey MG oral 1-21 TABLET BY Seybold Tablet 00:00: MOUTH 00 EVERY DAY WITH EVENING MEAL Xarelto 20 2021-0 3- No [id number] TAKE 1 Anai MG oral 1-21 07-06 [id number] TABLET BY Sey bold Tablet 00:00: 00:00 MOUTH - 00 :00 EVERY DAY Externa WITH l EVENING MEAL glipiZIDE 2021-0 Yes [id number] 10mg Take 10 mg Anai 10 MG oral 1-19 by mouth 2 Sey bold Tablet 00:00: times 00 daily glipiZIDE 2021-0 Yes [id number] 10mg Take 10 mg Anai 10 MG oral 1-19 by mouth 2 Sey bold Tablet 00:00: times 00 daily glipiZIDE 2021-0 Yes 10mg Take 10 mg Ke lsey 10 MG oral 1-19 by mouth 2 Sey bold Tablet 00:00: times 00 daily glipiZIDE 2021-0 Yes [id number] 10mg Take 10 mg Anai 10 MG oral 1-19 by mouth 2 Sey bold Tablet 00:00: times 00 daily Spironolact 2021-0 Yes 25mg Take 25 mg Anai one 25 MG 1-08 by mouth Seybol d oral Tablet 00:00: daily 00 Paroxetine 2021-0 Yes [id number] 20mg Take 20 mg Anai HCl 20 MG 1-05 by mouth Seybol d oral Tablet 00:00: every 00 morning Paroxetine 2021-0 Yes [id number] 20mg Take 20 mg Anai HCl 20 MG 1-05 by mouth Seybol d oral Tablet 00:00: every 00 morning Paroxetine 2021-0 Yes 20mg Take 20 mg K elsey HCl 20 MG 1-05 by mouth Seybol d oral Tablet 00:00: every 00 morning Paroxetine 0 Yes [id number] 20mg Take 20 mg Anai HCl 20 MG 1-05 by mouth Seybol d oral Tablet 00:00: every 00 morning Jardiance 2020-07- No 1{tbl} Take 1 Rakan sey 10 MG oral 2-29 -18 tablet by Sey bold Tablet 00:00: 00:00 mouth 00 :00 daily Omeprazole 2020-07 Yes [id number] 20mg Take 20 mg Anai 20 MG oral 2-24 by mouth Seybo ld Delayed 00:00: daily Release 00 Capsule Omeprazole 2020-07 Yes [id number] 20mg Take 20 mg Anai 20 MG oral 2-24 by mouth Seybo ld Delayed 00:00: daily Release 00 Capsule Omeprazole 2020-07 Yes 20mg Take 20 mg K elsey 20 MG oral 2-24 by mouth Seybo ld Delayed 00:00: daily Release 00 Capsule Omeprazole 2020-07 Yes [id number] 20mg Take 20 mg Anai 20 MG oral 2-24 by mouth Seybo ld Delayed 00:00: daily Release 00 Capsule Immunizations Ordered Immunization Filled Date Status Comments Sour ce Name Immunization Name Influenza Virus 2022-04-26 Completed Anai puente Vaccine, 00:00:00 - External Quadrivalent, High Dose, Age 65 And Up Tdap- (Boostrix, 2022-04-26 Completed Anai pang Adacel) 00:00:00 - External Influenza Virus 2022-04-26 [...] - External Influenza Virus 2022-04-26 Completed Anai Hendricks ybold Vaccine, 00:00:00 - External Quadrivalent, High [...] And Up Shingles IM 2021-02-26 Completed Anai Hendricksybol d (Shingrix) 00:00:00 Influenza Virus 2021-02-26 Completed Anai Se ybold Vaccine, High Dose, 00:00:00 - Ext ernal Age 65 And Up Shingles IM 2021-02-26 Completed Anai Hendricksybol d (Shingrix) 00:00:00 - External Influenza Virus 2021-02-26 Completed Anai Se ybold Vaccine, High Dose, 00:00:00 - Ext ernal Age 65 And Up Shingles IM 2021-02-26 Completed Anai Romeool d (Shingrix) 00:00:00 - External Influenza Virus 2021-02-26 Completed Anai Hnedricks ybold Vaccine, High Dose, 00:00:00 - Ext ernal Age 65 And Up Shingles IM 2021-02-26 Completed Anai Hendricksybol d (Shingrix) 00:00:00 - External Influenza Virus 2021-02-26 Completed Anai Se ybold Vaccine, High Dose, 00:00:00 - Ext ernal Age 65 And Up Shingles IM 2021-02-26 Completed Anai Hendricksybol d (Shingrix) 00:00:00 - External Influenza Virus 2021-02-26 Completed Anai Se ybold Vaccine, High Dose, 00:00:00 Age 65 And Up Shingles IM 2021-02-26 Completed Anai Hendricksybol d (Shingrix) 00:00:00 Influenza Virus 2021-02-26 Completed Anai Se ybold Vaccine, High Dose, 00:00:00 - Ext ernal Age 65 And Up Shingles IM 2021-02-26 Completed Anai Hendricksybol d (Shingrix) 00:00:00 - External Influenza Virus 2021-02-26 Completed Anai Hendricks ybold Vaccine, High Dose, 00:00:00 - Ext ernal Age 65 And Up Shingles IM 2021-02-26 Completed Anai Hendricksybol d (Shingrix) 00:00:00 - External Influenza Virus 2021-02-26 Completed Anai Hendricks ybold Vaccine, High Dose, 00:00:00 - Ext ernal Age 65 And Up Shingles IM 2021-02-26 Completed Anai Hendricksybol d (Shingrix) 00:00:00 - External Influenza Virus [...] And Up Shingles IM 2021-02-26 Completed Anai Gambino d (Shingrix) 00:00:00 - External Influenza Virus 2021-02-26 Completed Anai saleemold Vaccine, High Dose, 00:00:00 - Ext ernal Age 65 And Up Shingles IM 2021-02-26 Completed Anai hitchcock (Shingrix) 00:00:00 - External Influenza Virus 2021-02-26 Completed Anai puente Vaccine, High Dose, 00:00:00 Age 65 And Up Influenza Virus 2021-02-26 Completed Anai saleemold Vaccine, High Dose, 00:00:00 - Ext ernal Age 65 And Up Shingles IM 2021-02-26 Completed Anai hitchcock (Shingrix) 00:00:00 - External Shingles IM 2021-02-26 Completed Anai hitchcock (Shingrix) 00:00:00 Influenza Virus 2021-02-26 Completed Anai puente Vaccine, High Dose, 00:00:00 - Ext ernal Age 65 And Up Shingles IM 2021-02-26 Completed Anai hitchcock (Shingrix) 00:00:00 - External Influenza Virus 2021-02-26 Completed Anai puente Vaccine, High Dose, 00:00:00 - Ext ernal Age 65 And Up Shingles IM 2021-02-26 Completed Anai hitchcock (Shingrix) 00:00:00 - External Hep A/ Hep B Combo 2020-08-01 Completed Anai Hendricksybbartolome 00:00:00 - External Hep A/ Hep B Combo 2020-08-01 Completed Anai Hendricksybbartolome 00:00:00 - External Hep A/ Hep B Combo 2020-08-01 Completed Anai Hendricksybbartolome 00:00:00 - External Hep A/ Hep B Combo 2020-08-01 Completed Anai Hendricksybbartolome 00:00:00 - External Hep A/ Hep B Combo 2020-08-01 Completed Anai Hendricksybbartolome 00:00:00 - External Hep A/ Hep B [...] Anai Seybol d (Shingrix) 00:00:00 - External Pneumococcal 2020-01-30 [...] 00:00:00 - External Pneumococcal 2020-01-30 Completed Anai Oritz ld Vaccine, Conjugate 00:00:00 - Exte rnal [...] 00:00:00 - External Pneumococcal 2014-02-28 Completed Anai Seharpero ld Vaccine, 00:00:00 - External Polysaccharide Pneumococcal 2014-02-28 Completed Anai Seharpero ld Vaccine, 00:00:00 - External Polysaccharide Influenza Virus Unknown Completed Anai Se puente Vaccine, High Dose, - Ext ernal Age 65 And Up Shingles IM Unknown Completed Anai Romeool d (Shingrix) - External Influenza Virus Unknown Completed Anai puente Vaccine, - External Quadrivalent, High Dose, Age 65 And Up Pneumococcal Unknown Completed Anai Ortiz ld Vaccine, Conjugate - Exte rnal 13 Shingles IM Unknown Completed Anai hitchcock (Shingrix) - External Shingles IM Unknown Completed Anai Gambino d (Shingrix) - External Hep A/ Hep B Combo Unknown Completed Anai Nieto - External Hep A/ Hep B Combo Unknown Completed Anai Nieto - External Hep A/ Hep B Combo Unknown Completed Anai Camacho External Tdap- (Boostrix, Unknown Completed Anai Montiel) - External Pneumococcal Unknown Completed Anai merchant Vaccine, - External Polysaccharide Influenza Virus Unknown Completed Anai Se puente Vaccine, High Dose, - Ext ernal Age 65 And Up Shingles IM Unknown Completed Anai Romeool d (Shingrix) - External Influenza Virus Unknown Completed Anai puente Vaccine, - External Quadrivalent, High Dose, Age 65 And Up Pneumococcal Unknown Completed Anai Ortiz ld Vaccine, Conjugate - Exte rnal 13 Shingles IM Unknown Completed Anai Romeool d (Shingrix) - External Shingles IM Unknown Completed Anai Romeool d (Shingrix) - External Hep A/ Hep B Combo Unknown Completed Anai Nieto - External Hep A/ Hep B Combo Unknown Completed Anai Nieto - External Hep A/ Hep B Combo Unknown Completed Anai Nieto - External Tdap- (Boostrix, Unknown Completed Anai Trivedi poly Adacel) - External Pneumococcal Unknown Completed Anai Hendricksharpertree ld Vaccine, - External Polysaccharide Influenza Virus Unknown Completed Anai puente Vaccine, High Dose, - Ext ernal Age 65 And Up Shingles IM Unknown Completed Anai Seharperol d (Shingrix) - External Influenza Virus Unknown Completed Anai puente Vaccine, - External Quadrivalent, High Dose, Age 65 And Up Pneumococcal Unknown Completed Anai Sedave merchant Vaccine, Conjugate - Exte rnal 13 Shingles IM Unknown Completed Anai Romeool d (Shingrix) - External Shingles IM Unknown Completed Anai Romeool d (Shingrix) - External Hep A/ Hep B Combo Unknown Completed Anai Nieto - External Hep A/ Hep B Combo Unknown Completed Anai Nieto - External Hep A/ Hep B Combo Unknown Completed Anai Emilia - External Tdap- (Boostrix, Unknown Completed Anai S poly Adacel) - External Pneumococcal Unknown Completed Anai Sedave merchant Vaccine, - External Polysaccharide Pneumococcal Unknown Completed [facility] Conjugate 13-[facility] Pneumococcal Unknown Completed [facility] Conjugate 13-[facility] Vital Signs Vital Name Observation Time Observation Value Comments Source Systolic blood 2023-06-10 14:35:00 152 mm[Hg] Anai Nieto - pressure External Diastolic blood 2023-06-10 14:35:00 74 mm[Hg] Elda Nieto - pressure External Heart rate 2023-06-10 14:35:00 87 /min Anai Shikha poly - External Body temperature 2023-06-10 14:35:00 37.06 Tiki Samia ey Aguedabartolome - External Respiratory rate 2023-06-10 14:35:00 20 /min Samia ey Emilia - External Body height 2023-06-10 14:35:00 167.6 cm Anai Shikha poly - External Body weight 2023-06-10 14:35:00 86.183 kg Anai Shikha poly - External BMI 2023-06-10 14:35:00 30.67 kg/m2 Anai Shikha poly - External Oxygen saturation in 2023-06-10 14:35:00 99 /min Anai Nieto - Arterial blood by External Pulse oximetry HEIGHT 2023-06-06 10:27:00 167.6 cm WEIGHT 2023-06-06 10:27:00 85.73 kg HEIGHT 2023-06-06 10:27:00 167.6 cm WEIGHT 2023-06-06 10:27:00 85.73 kg HEIGHT 2023-06-06 10:27:00 167.6 cm WEIGHT 2023-06-06 10:27:00 85.73 kg Systolic blood 2023-05-20 16:13:00 130 mm[Hg] Anai Seybold - pressure External Diastolic blood 2023-05-20 16:13:00 73 mm[Hg] Elda y Seybold - pressure External Heart rate 2023-05-20 16:13:00 98 /min Anai Shikha martinebold - External Body temperature 2023-05-20 16:13:00 36.5 Tiki Samia ey Seybold - External Respiratory rate 2023-05-20 16:13:00 15 /min Samia ey Seybold - External Body height 2023-05-20 16:13:00 167.6 cm Anai S eybold - External Body weight 2023-05-20 16:13:00 83.462 kg Anai S eybold - External BMI 2023-05-20 16:13:00 29.70 kg/m2 Anai Shikha martineboshonda - External Oxygen saturation in 2023-05-20 16:13:00 99 /min Anai Nieto - Arterial blood by External Pulse oximetry WEIGHT 2023-05-16 05:45:00 82.283 kg WEIGHT 2023-05-15 06:00:00 82.6 kg HEIGHT 2023-05-14 05:19:00 167.6 cm WEIGHT 2023-05-14 05:19:00 82.555 kg WEIGHT 2023-05-16 05:45:00 82.283 kg WEIGHT 2023-05-15 06:00:00 82.6 kg HEIGHT 2023-05-14 05:19:00 167.6 cm WEIGHT 2023-05-14 05:19:00 82.555 kg WEIGHT 2023-05-16 05:45:00 82.283 kg WEIGHT 2023-05-15 06:00:00 82.6 kg HEIGHT 2023-05-14 05:19:00 167.6 cm WEIGHT 2023-05-14 05:19:00 82.555 kg BMI 2023-04-10 20:31:00 29.86 kg/m2 Anai S eybold - External Oxygen saturation in 2023-04-10 20:31:00 97 /min Anai Seybold - Arterial blood by External Pulse oximetry Systolic blood 2023-04-10 20:31:00 126 mm[Hg] Anai Seybold - pressure External Diastolic blood 2023-04-10 20:31:00 68 mm[Hg] Kelse y Seybold - pressure External Heart rate 2023-04-10 20:31:00 75 /min Anai S eybold - External Body temperature 2023-04-10 20:31:00 37.06 Tiki Samia ey Seybold - External Respiratory rate 2023-04-10 20:31:00 20 /min Samia ey Seybold - External Body height 2023-04-10 20:31:00 167.6 cm Anai S eybold - External Body weight 2023-04-10 20:31:00 83.915 kg Anai S eybold - External Systolic blood 2023-03-06 21:11:00 130 mm[Hg] Anai Seybold - pressure External Diastolic blood 2023-03-06 21:11:00 89 mm[Hg] Rakanse y Seybold - pressure External Heart rate 2023-03-06 21:11:00 101 /min Anai S eybold - External Body temperature 2023-03-06 21:11:00 37.33 Tiki Samia ey Seybold - External Respiratory rate 2023-03-06 21:11:00 15 /min Samia ey Seybold - External Body height 2023-03-06 21:11:00 167.6 cm Anai S eybold - External Body weight 2023-03-06 21:11:00 93.441 kg Anai S eybold - External BMI 2023-03-06 21:11:00 33.25 kg/m2 Anai S eybold - External Oxygen saturation in 2023-03-06 21:11:00 100 /min Anai Seybold - Arterial blood by External Pulse oximetry Systolic blood 2023-01-11 16:33:00 99 mm[Hg] Anai Seybold - pressure External Diastolic blood 2023-01-11 16:33:00 59 mm[Hg] Kelse y Seybold - pressure External [...] External Body height 2022-10-18 14:07:00 167.6 cm nAai Trivedi eybold - External Body weight 2022-10-18 14:07:00 92.08 kg Anai Trivedi eybold - External BMI 2022-10-18 14:07:00 32.77 kg/m2 nAai S eybold - External Systolic blood 2022-09-21 [...] Body height 2022-09-21 16:48:00 167.6 cm Anai Trivedi eybold - External Body weight 2022-09-21 16:48:00 92.534 kg Anai Trivedi eybold - External BMI 2022-09-21 16:48:00 32.93 kg/m2 Anai Trivedi eybold - External Oxygen saturation in 2022-09-21 16:48:00 98 /min Anai Aguedabartolome - Arterial blood by External Pulse oximetry [...] saturation in 2022-07-17 13:57:00 99 /min Anai Nieto - Arterial blood by External Pulse oximetry Systolic blood 2022-04-26 13:55:00 136 mm[Hg] Anai Seybold - pressure External Diastolic blood 2022-04-26 13:55:00 74 mm[Hg] Elda y Seybold - pressure External [...] eybold Body temperature 2021-10-31 14:25:00 35.67 Tiki Saima ey Seybold Respiratory rate 2021-10-31 14:25:00 16 /min Samia ey Seybold Body height 2021-10-31 14:25:00 167.6 cm Anai Trivedi eybold Body weight 2021-10-31 14:25:00 92.08 kg Anai farleybold BMI 2021-10-31 14:25:00 32.77 kg/m2 Anai S eybold Systolic blood 2021-09-15 19:47:00 103 mm[Hg] Anai Seybold pressure Diastolic blood 2021-09-15 19:47:00 67 mm[Hg] Kelse y Seybold pressure Heart rate 2021-09-15 19:47:00 88 /min Anai Trivedi eybold Body temperature 2021-09-15 19:47:00 36.44 Tiki Samia farley Seybold Respiratory rate 2021-09-15 19:47:00 15 /min Samia farley Seybold Body height 2021-09-15 19:47:00 167.6 cm Anai farleybold Body weight 2021-09-15 19:47:00 91.627 kg Anai farleybold BMI 2021-09-15 19:47:00 32.60 kg/m2 Anai farleybold Systolic blood 2023-06-06 16:28:00 137 mm[Hg] [facility] Diastolic blood 2023-06-06 16:28:00 83 mm[Hg] [facility] Heart rate 2023-06-06 16:28:00 86 /min [facility] Respiratory rate 2023-06-06 16:28:00 18 /min [facility] Oxygen saturation in 2023-06-06 15:42:00 95 /min [facility] Arterial blood by Medical Ce nter Pulse oximetry Body temperature 2023-06-06 10:27:00 36.17 Tiki [facility] Body height 2023-06-06 10:27:00 167.6 cm [facility] Body weight 2023-06-06 10:27:00 85.73 kg [facility] BMI 2023-06-06 10:27:00 30.51 kg/m2 [facility] Heart rate 2023-05-16 13:00:00 78 /min [facility] Systolic blood 2023-05-16 11:00:00 92 mm[Hg] [facility] Diastolic blood 2023-05-16 11:00:00 61 mm[Hg] [facility] Body temperature 2023-05-16 11:00:00 36.83 Tiki [facility] Respiratory rate 2023-05-16 11:00:00 18 /min [facility] Oxygen saturation in 2023-05-16 11:00:00 95 /min [facility] Arterial blood by Medical Ce nter Pulse oximetry Body weight 2023-05-16 05:45:00 82.283 kg [facility] BMI 2023-05-16 05:45:00 29.28 kg/m2 [facility] Body height 2023-05-14 05:19:00 167.6 cm [facility] Systolic blood 2023-02-20 13:00:31 128 mm[Hg] [facility] pressure Diastolic blood 2023-02-20 13:00:31 71 mm[Hg] [facility] pressure Heart rate 2023-02-20 13:00:31 71 /min [facility] Body temperature 2023-02-20 13:00:31 36.39 Tiki [facility] Respiratory rate 2023-02-20 13:00:31 20 /min [facility] Oxygen saturation in 2023-02-20 13:00:31 97 /min [facility] Arterial blood by Pulse oximetry Body weight 2023-02-17 00:34:00 85.639 kg [facility] BMI 2023-02-17 00:34:00 30.47 kg/m2 [facility] Body height 2023-02-16 15:02:00 167.6 cm [facility] Procedures Procedure Date / Time Performing Clinician Source Performed CARDIAC ELECTROPHYSIOLOGY 2023-06-06 20:10:00 NADIA Uribe STUDY, WITH TOTAL AV NODE [facility] ABLATION POCT-GLUCOSE METER 2023-06-06 15:11:00 OSCAR [facility] CARDIAC ELECTROPHYSIOLOGY 2023-06-06 14:03:00 Eusebio Fernández [facility] STUDY, WITH TOTAL AV NODE [facility] ABLATION ECHO W CONTRAST & DOPPLER 2023-06-06 13:20:01 Severino Duque [facility] ECG 12-LEAD 2023-06-06 10:56:50 Kwaku Quiros [facility] CARDIAC CATH REPORT - SCAN 2023-06-06 00:00:00 Lee Toro [facility] BASIC METABOLIC PANEL 2023-05-16 09:54:[address] [facility] CBC W/PLT COUNT & AUTO 2023-05-16 09:54:00 [facility] W/[facility]T COUNT & AUTO 2023-05-16 09:54:00 [facility] BASIC METABOLIC PANEL 2023-05-15 06:46:[address] [facility] CBC W/PLT COUNT & AUTO 2023-05-15 06:46:00 [facility] DIFFERENTIAL [facility] CBC W/PLT COUNT & AUTO 2023-05-15 06:46:00 [facility] CARDIAC ELECTROPHYSIOLOGY 2023-05-14 15:55:00 Eusebio Fernández [facility] STUDY, WITH ABLATION [facility] POCT-ACT 2023-05-14 12:37:00 [facility] 2023-05-14 10:12:[address] [facility] POCT-ACT 2023-05-14 09:51:[address] [facility] POCT-ACT 2023-05-14 09:29:[address] [facility] POCT-ACT 2023-05-14 09:14:[address] [facility] CARDIAC ELECTROPHYSIOLOGY 2023-05-14 07:37:00 Eusebio Fernández [facility] STUDY, WITH ABLATION [facility] POCT-GLUCOSE METER 2023-05-14 06:10:00 Eusebio Fernández [facility] ECG 12-LEAD 2023-05-14 05:40:47 Patrick Rodríguez [facility] CARDIAC CATH REPORT - SCAN 2023-05-14 00:00:00 Provider, Default [facility] EKG-SCANNED 2023-05-14 00:00:00 Provider, Default [facility] POC GLUCOSE 2023-02-20 12:59:00 Girish [facility] [place] CBC WITH PLATELET AND 2023-02-20 10:04:00 Girish Cornell [facility] DIFFERENTIAL [facility] BASIC METABOLIC PANEL 2023-02-20 10:04:00 Girish Cornell [facility] FUNCTION PANEL 2023-02-20 10:04:00 Jyoti Velázquez [facility] PROTHROMBIN TIME WITH INR 2023-02-20 10:04:00 [facility] MAGNESIUM LEVEL 2023-02-20 10:04:00 Girish [facility] [place] ESTIMATED GFR 2023-02-20 10:04:00 Girish [facility] [place] SMEAR REVIEW 2023-02-20 10:04:00 Girish [facility] [place] POC GLUCOSE 2023-02-20 00:59:00 Girish Cornell [facility] [place] POC GLUCOSE 2023-02-19 21:30:00 Girish [facility] [place] POC GLUCOSE 2023-02-19 20:50:00 Girish [facility] [place] POC GLUCOSE 2023-02-19 16:17:00 Girish Cornell [facility] [place] POC GLUCOSE 2023-02-19 12:24:00 Girish Cornell [facility] [place] CBC WITH PLATELET AND 2023-02-19 09:39:00 Girish Cornell [facility] DIFFERENTIAL Fas[facility] BASIC METABOLIC PANEL 2023-02-19 09:39:00 Girish Cornell [facility] HEPATIC FUNCTION PANEL 2023-02-19 09:39:00 Melania [facility] PROTHROMBIN TIME WITH INR 2023-02-19 09:39:00 [facility] 2023-02-19 09:39:00 Girish Cornell [facility] [place] SMEAR REVIEW 2023-02-19 09:39:00 Girish Cornell [facility] [place] MAGNESIUM LEVEL 2023-02-19 09:39:00 Girish Cornell [facility] [place] POC GLUCOSE 2023-02-19 02:18:00 Girish Cornell [facility] [place] POC GLUCOSE 2023-02-18 22:50:00 Girish [facility] [place] ECG 12-LEAD 2023-02-18 17:07:00 Girish Cornell [facility] [place] POC GLUCOSE 2023-02-18 16:34:00 Girish Cornell [facility] [place] BASIC METABOLIC PANEL 2023-02-18 15:47:00 Girish Cornell [facility] [place] MAGNESIUM LEVEL 2023-02-18 15:47:00 Girish [facility] [place] ESTIMATED GFR 2023-02-18 15:47:00 Girish Cornell [facility] [place] POC GLUCOSE 2023-02-18 12:54:00 Girish Cornell [facility] [place] HEMOGLOBIN A1C 2023-02-18 10:07:00 Girish [facility] [place] FERRITIN LEVEL 2023-02-18 10:07:00 Girish [facility] [place] FOLATE LEVEL 2023-02-18 10:07:00 Girish Cornell [facility] [place] TOTAL IRON BINDING CAPACITY 2023-02-18 10:07:00 Cornell, [facility] VITAMIN B12 LEVEL 2023-02-18 10:07:00 Len [facility] POC GLUCOSE 2023-02-18 01:15:00 Girish Cornell [facility] [place] POC GLUCOSE 2023-02-17 21:21:00 Girish [facility] [place] ECG 12-LEAD 2023-02-17 16:49:08 Girish Cornell [facility] [place] POC GLUCOSE 2023-02-17 16:34:00 [facility] WITH PLATELET AND 2023-02-17 09:15:00 Juanita [facility] DIFFERENTIAL H COMPREHENSIVE METABOLIC 2023-02-17 09:15:00 [facility] PANEL H MAGNESIUM LEVEL 2023-02-17 09:15:00 [facility] THYROID STIMULATING HORMONE 2023-02-17 09:15:00 graciela [facility] H HEMOGLOBIN A1C 2023-02-17 09:15:00 graciela [facility] ESTIMATED GFR 2023-02-17 09:15:00 graciela [facility] SMEAR REVIEW 2023-02-17 09:15:00 [facility] CT ABDOMEN PELVIS W CONTRAST 2023-02-16 17:44:26 Hiram [facility] URINE CULTURE 2023-02-16 17:16:00 [facility] CBC WITH PLATELET AND 2023-02-16 15:52:00 [facility] DIFFERENTIAL [facility] COMPREHENSIVE METABOLIC 2023-02-16 15:52:00 [facility] PANEL [facility] LIPASE LEVEL 2023-02-16 15:52:00 [facility] URINALYSIS SCREEN AND 2023-02-16 15:52:00 [facility] MICROSCOPY, WITH REFLEX TO Ruben CULTURE ESTIMATED GFR 2023-02-16 15:52:00 Katiuska Gandhi spital [facility]en SMEAR REVIEW 2023-02-16 15:52:00 Katiuska Gandhi [facility]en POC GLUCOSE 2023-02-13 17:53:00 [facility] POC GLUCOSE 2023-02-13 13:43:00 [facility] CBC WITH PLATELET AND 2023-02-13 10:16:00 [facility] DIFFERENTIAL BASIC METABOLIC PANEL 2023-02-13 10:16:00 [facility] HEPATIC FUNCTION PANEL 2023-02-13 10:16:00 [facility] MAGNESIUM LEVEL 2023-02-13 10:16:00 [facility] PHOSPHORUS LEVEL 2023-02-13 10:16:00 [facility] PROTHROMBIN TIME WITH INR 2023-02-13 10:16:00 Jyoti Velázquez [facility] ESTIMATED GFR 2023-02-13 10:16:00 [facility] SMEAR REVIEW 2023-02-13 10:16:00 [facility] POC GLUCOSE 2023-02-13 01:26:00 [facility] CBC WITH PLATELET AND 2023-02-12 09:06:00 [facility] DIFFERENTIAL BASIC METABOLIC PANEL 2023-02-12 09:06:00 [facility] HEPATIC FUNCTION PANEL 2023-02-12 09:06:00 [facility] MAGNESIUM LEVEL 2023-02-12 09:06:00 [facility] PHOSPHORUS LEVEL 2023-02-12 09:06:00 [facility] ALPHA FETOPROTEIN 2023-02-12 09:06:00 Velázquez, [facility] ALPHA-1 ANTITRYPSIN 2023-02-12 09:06:00 Velázquez, [facility] PHENOTYPE ANTINUCLEAR ANTIBODIES (AGUSTIN) 2023-02-12 09:06:00 Velázquez, [facility] WITH REFLEX TO TITER AND PATTERN, IMMUNOFLUORESCENCE SMOOTH MUSCLE ANTIBODIES 2023-02-12 09:06:00 Velázquez, [facility] WITH REFLEX TO TITER, IFA ACUTE VIRAL HEPATITIS PANEL 2023-02-12 09:06:00 Velázquez, [facility] (HAV, HBV, HCV) IMMUNOGLOBULIN M 2023-02-12 09:06:00 Velázquez, [facility] LIVER-KIDNEY MICROSOME AB, 2023-02-12 09:06:00 Velázquez, [facility] IGG PROTHROMBIN TIME WITH INR 2023-02-12 09:06:00 Velázquez, [facility] ESTIMATED GFR 2023-02-12 09:06[facility] 2023-02-12 09:06:00 [facility] MRI ABDOMEN W WO CONTRAST 2023-02-12 04:03:00 Velázquez, [facility] POC GLUCOSE 2023-02-12 02:12:00 [facility] US ABDOMINAL LIMITED 2023-02-11 17:45:00 [facility] 2023-02-11 15:43:20 [facility] FIBRINOGEN 2023-02-11 13:47:00 [facility]OPONIN T 2023-02-11 08:30:00 [facility] CBC WITH PLATELET AND 2023-02-11 08:30:00 [facility] DIFFERENTIAL BASIC METABOLIC PANEL 2023-02-11 08:30:00 [facility] HEPATIC FUNCTION PANEL 2023-02-11 08:30:00 [facility] MAGNESIUM LEVEL 2023-02-11 08:30:00 Sun, [facility] PHOSPHORUS LEVEL 2023-02-11 08:30:00 Sun, [facility] ESTIMATED GFR 2023-02-11 08:30:00 Sun, [facility] SMEAR REVIEW 2023-02-11 08:30:00 Timbo, [facility] POC GLUCOSE 2023-02-11 04:23:00 [facility] LACTIC ACID LEVEL, SEPSIS - 2023-02-11 04:20:00 Daphne, [facility] NOW AND REPEAT 2X EVERY 3 HOURS TROPONIN T 2023-02-11 04:20:00 [facility] POTASSIUM LEVEL 2023-02-11 01:06:00 [facility] ([facility] 2023-02-11 01:06:00 St[facility] TROPONIN T 2023-02-11 01:06:00 Stu [facility] CREATINE KINASE, TOTAL (CPK) 2023-02-11 01:06:[address] [facility] CT ABDOMEN PELVIS WO 2023-02-11 00:27:03 Chapin Peraza [facility] CONTRAST URINE CULTURE 2023-02-11 00:08:00 Chapin Peraza [facility] POC GLUCOSE 2023-02-11 00:07:00 Chapin Peraza [facility] CBC WITH PLATELET AND 2023-02-10 23:51:00 Chapin Peraza [facility] DIFFERENTIAL PROTHROMBIN TIME WITH INR 2023-02-10 23:51:00 Chapin Peraza [facility] PARTIAL THROMBOPLASTIN TIME 2023-02-10 23:51:00 Chapin [facility] COMPREHENSIVE METABOLIC 2023-02-10 23:51:00 [facility] LACTIC ACID LEVEL, SEPSIS - 2023-02-10 23:51:00 Daphne, [facility] NOW AND REPEAT 2X EVERY 3 HOURS LIPASE LEVEL 2023-02-10 23:51:00 [facility] TROPONIN T 2023-02-10 23:51:00 DaphneAngelique [facility] NT-PROBNP 2023-02-10 23:51:00 [facility] VENOUS BLOOD GAS 2023-02-10 23:51:00 Chapin Peraza [facility] BETA HYDROXYBUTYRATE 2023-02-10 23:51:00 Chapin Peraza [facility] CREATINE KINASE, TOTAL (CPK) 2023-02-10 23:51:[address] [facility] ESTIMATED GFR 2023-02-10 23:51:00 [facility] SMEAR REVIEW 2023-02-10 23:51:00 [facility] URINALYSIS SCREEN AND 2023-02-10 23:35:00 Chapin Peraza [facility] MICROSCOPY, WITH REFLEX TO CULTURE ECG ED PRELIMINARY 2023-02-10 23:00:55 Chapin Peraza [facility] INTERPRETATION ECG 12-LEAD 2023-02-10 22:17:40 Chapin Peraza [facility] POC GLUCOSE 2023-02-03 17:42:00 Girish [facility] POC GLUCOSE 2023-02-03 13:37:00 Girish [facility] [place] CBC WITH PLATELET AND 2023-02-03 10:40:00 Girish Cornell [facility] DIFFERENTIAL [facility] BASIC METABOLIC PANEL 2023-02-03 10:40:00 Girish Cornell [facility] [place] MAGNESIUM LEVEL 2023-02-03 10:40:00 Girish Cornell [facility] [place] ESTIMATED GFR 2023-02-03 10:40:00 Girish Cornell [facility] [place] SMEAR REVIEW 2023-02-03 10:40:00 Girish Cornell [facility] [place] POC GLUCOSE 2023-02-03 01:45:00 Girish Cornell [facility] [place] POC GLUCOSE 2023-02-02 22:37:00 Girish Cornell [facility] [place] POC GLUCOSE 2023-02-02 16:20:00 Girish Cornell [facility] [place] POC GLUCOSE 2023-02-02 13:03:00 Girish Cornell [facility] [place] CBC WITH PLATELET AND 2023-02-02 10:08:00 Girish Cornell [facility] DIFFERENTIAL [facility] BASIC METABOLIC PANEL 2023-02-02 10:08:00 Girish Cornell [facility] MAGNESIUM LEVEL 2023-02-02 10:08:00 Girish Cornell [facility] [place] FERRITIN LEVEL 2023-02-02 10:08:00 [facility] FOLATE LEVEL 2023-02-02 10:08:00 Girish Cornell [facility] [place] TOTAL IRON BINDING CAPACITY 2023-02-02 10:08:00 Len [facility] VITAMIN B12 LEVEL 2023-02-02 10:08:00 Len Mcgee [facility] ESTIMATED GFR 2023-02-02 10:08:00 Girish Cornell [facility] [place] SMEAR REVIEW 2023-02-02 10:08:00 Girish Cornell [facility] [place] POC GLUCOSE 2023-02-02 02:26:00 Girish Cornell [facility] [place] POC GLUCOSE 2023-02-01 22:55:00 Girish Cornell [facility] [place] URINE CULTURE 2023-02-01 17:39:00 Girish Cornell [facility] [place] URINALYSIS SCREEN AND 2023-02-01 16:50:00 Girish Cornell [facility] MICROSCOPY, WITH REFLEX TO [place] CULTURE POC GLUCOSE 2023-02-01 16:31:00 Girish Cornell [facility] [place] US CHEST 2023-02-01 12:00:56 Girish Cornell [facility] [place] LACTIC ACID LEVEL, SEPSIS - 2023-02-01 10:40:00 [facility] NOW AND REPEAT 2X EVERY 3 Ruben HOURS CBC WITH PLATELET AND 2023-02-01 10:40:00 Len [facility] DIFFERENTIAL [place] BASIC METABOLIC PANEL 2023-02-01 10:40:00 Len Mcgee [facility] [place] HEMOGLOBIN A1C 2023-02-01 10:40:00 Girish Cornell spital [place] MAGNESIUM LEVEL 2023-02-01 10:40:00 Girish Cornell [facility] [place] ESTIMATED GFR 2023-02-01 10:40:00 Girish Cornell spital [place] SMEAR REVIEW 2023-02-01 10:40:00 Girish Cornell [facility] [place] POC GLUCOSE 2023-02-01 07:07:00 [facility] 2023-02-01 04:40:00 Hiram [facility] LACTIC ACID LEVEL, SEPSIS - 2023-02-01 04:03:00 [facility] NOW AND REPEAT 2X EVERY 3 Ruben HOURS BLOOD CULTURE, AEROBIC & 2023-02-01 04:02:00 [facility] ANAEROBIC [facility] URINALYSIS SCREEN AND 2023-02-01 03:33:00 [facility] MICROSCOPY, WITH REFLEX TO [facility] CULTURE CT ABDOMEN PELVIS W CONTRAST 2023-02-01 02:40:10 [facility] CBC WITH PLATELET AND 2023-02-01 00:51:00 [facility] DIFFERENTIAL [facility] LACTIC ACID LEVEL, SEPSIS - 2023-02-01 00:51:00 [facility] NOW AND REPEAT 2X EVERY 3 Ruben HOURS COMPREHENSIVE METABOLIC 2023-02-01 00:51:00 [facility] PANEL [facility] PHOSPHORUS LEVEL 2023-02-01 00:51:00 [facility] ospital Ruben MAGNESIUM LEVEL 2023-02-01 00:51:00 Katiuska Gandhi Ho spital [place] VENOUS BLOOD GAS 2023-02-01 00:51:00 Katiuska Gandhi H [facility]spital [facility] ESTIMATED GFR 2023-02-01 00:51:00 Hiram Katiuska Nugent spital [place] SMEAR REVIEW 2023-02-01 00:51:00 Katiuska Gandhi spital [place] ECG 12-LEAD 2023-01-31 23:57:17 Girish Cornell [facility] [place] Plan of Care Planned Activity Planned Date Details Comments Source Future Scheduled 2032-04-26 DTAP/TDAP/TD VACCINES [facility] 00:[facility]:00 (2 - Td or Tdap) [code Medic al Center = DTAP/TDAP/TD VACCINES (2 - Td or Tdap)] Future Scheduled 2032-04-26 DTAP/TDAP/TD VACCINES [facility] 00:00:00 (2 - Td or Tdap) [code Medic al Center = DTAP/TDAP/TD VACCINES (2 - Td or Tdap)] Future Scheduled 2024-06-[address] [facility] 00:[facility]00 [facility] (12+) [code = Tobacco Cessation Counseling and Screening (12+)] Future Scheduled 2024-05-[address] [facility] 00:00:00 [facility] (12+) [code = Tobacco Cessation Counseling and Screening (12+)] Future Scheduled 2023-05-26 COVID-19 VACCINE (#1) [facility] Test 17:41:35 [code = COVID-19 VACCINE (#1)] Future Scheduled 2023-05-26 SHINGLES VACCINES (1 Met [facility] Test 17:41:35 of 2) [code = SHINGLES VACCINES (1 of 2)] Future Scheduled 2023-05-26 INFLUENZA VACCINE (#1) [facility] Test 17:41:35 [code = INFLUENZA VACCINE (#1)] Future Scheduled 2023-04-06 COVID-19 VACCINE (#1) [facility] Test 01:11:20 [code = COVID-19 VACCINE (#1)] Future Scheduled 2023-04-06 SHINGLES VACCINES (1 Met [facility] Test 01:11:20 of 2) [code = SHINGLES VACCINES (1 of 2)] Future Scheduled 2023-04-06 INFLUENZA VACCINE (#1) M [facility] Test 01:11:20 [code = INFLUENZA VACCINE (#1)] Future Scheduled 2023-03-29 Influenza Vaccine (#1) [facility] 00:00:00 [code = Influenza Medical Ce nter Vaccine (#1)] Future Scheduled 2023-03-29 Influenza Vaccine (#1) [facility] 00:00:00 [code = Influenza Medical Ce nter Vaccine (#1)] Future Scheduled 2023-03-29 Influenza Vaccine (#1) [facility] 00:00:00 [code = Influenza Medical Ce nter Vaccine (#1)] Future Scheduled 2022-07-29 F[address]S RISK SCREENING [facility] 00:00:00 [code = FALLS RISK Medical C enter SCREENING] Future Scheduled 2022-07-[address] [facility] 00:00:00 (12+) [code = Medical Center DEPRESSION SCREENING (12+)] Future Scheduled 2022-07-29 FALLS RISK SCREENING [facility] 00:00:00 [code = FALLS RISK Medical C enter SCREENING] Future Scheduled 2022-07-29 FALLS RISK SCREENING [facility] 00:00:00 [code = FALLS RISK Medical C enter SCREENING] Future Scheduled 2016-07-[address] [facility] 00:00:00 WELLNESS (YEAR 2 or [facility] FIRST YEAR if no IPPE) [code = MEDICARE ANNUAL WELLNESS (YEAR 2 or FIRST YEAR if no IPPE)] Future Scheduled 2016-07-[address] [facility] 00:[facility]:00 WELLNESS (YEAR 2 or Medical Center FIRST YEAR if no IPPE) [code = MEDICARE ANNUAL WELLNESS (YEAR 2 or FIRST YEAR if no IPPE)] Future Scheduled 2012 PNEUMOCOCCAL 65+ YRS [facility] 00:00:00 (1 - PCV) [code = Medical Ce nter PNEUMOCOCCAL 65+ YRS (1 - PCV)] Future Scheduled 1997 SHINGLES VACCINES ([address] [facility] 00:00:00 of 2) [code = SHINGLES Medic al Center VACCINES (1 of 2)] Future Scheduled 1997 SHINGLES VACCINES ([address] [facility] 00:00:00 of 2) [code = SHINGLES Medic al Center VACCINES (1 of 2)] Future Scheduled 1997 SHINGLES VACCINES ([address] [facility] 00:00:00 of 2) [code = SHINGLES Medic al Center VACCINES (1 of 2)] Future Scheduled 1966 DTAP/TDAP/TD VACCINES [facility] 00:00:00 (1 - Tdap) [code = Medical C enter DTAP/TDAP/TD VACCINES (1 - Tdap)] Future Scheduled 1965 HEPATITIS C [facility]CRE[facility]ING [facility] 00:[facility]:00 [code = HEPATITIS C Medical Center SCREENING] Future Scheduled 1965 HEPATITIS C [facility]CRE[facility] 00:[facility]:00 [code = HEPATITIS C Medical Center SCREENING] Future Scheduled 1965 HEPATITIS C [facility]CRE[facility]ING [facility] 00:00:00 [code = HEPATITIS C Medical Center SCREENING] Future Scheduled [address] [facility] 00:00:00 Counseling and Medical Cente r Screening (12+) [code = Tobacco Cessation Counseling and Screening (12+)] Future Scheduled 1947 COVID-19 VACCINE (#1) [facility] 00:00:00 [code = COVID-[address] VACCINE (#1)] Future Scheduled 1947 COVID-19 VACCINE (#1) [facility] 00:00:00 [code = COVID-[address] VACCINE (#1)] Future Scheduled 1947 COVID-19 VACCINE (#1) [facility] 00:00:00 [code = COVID-[address] VACCINE (#1)] Encounters Start End Encounter Admission Attending Care Care Encounter Source Date/Time Date/Time Type Type Clinicians Facility Department ID 2023-09-10 2023-09-10 Outpatient ANAI MARIE [id number] Anai 08:15:00 08:15:00 RAYMUNDO hitchcock 2023-09-04 2023-09-04 Outpatient [facility] ANAI OSPINA [id number] Anai 16:00:00 16:00:00 EDVIN Deutsch Se 2023-08-14 2023-08-14 Outpatient ANAI ROMERO [id number] Anai 14:50:00 14:50:00 FLORI Seybol d 2023-07-01 2023-07-01 Outpatient ANAI MARIE [id number] Anai 08:45:00 08:45:00 RAYMUNDO Seybol d 2023-06-11 2023-06-11 Outpatient PREZAANAI Trivedi [id number] Anai 00:00:00 00:00:00 RAYMUNDO Seybol d 2023-06-10 2023-06-10 Outpatient LAB90 ANAI OSPINA [id number] Anai 09:25:00 09:25:00 Seybol d 2023-06-10 2023-06-10 Outpatient ANAI MARIE [id number] Anai 08:45:00 08:45:00 RAYMUNDO Seybol d 2023-06-07 2023-06-07 Outpatient PRETOÑOANAI Trivedi [id number] Anai 00:00:00 00:00:00 RAYMUNDO Seybol d 2023-06-06 2023-06-06 [facility] [id number] 10:00:00 17:03:[address] 2023-06-06 2023-06-06 Outpatient [facility] Surgery [id number] [facility] 10:00:00 17:03:00 ALONSO FERNÁNDEZ 2023-06-06 2023-06-06 Surgery [facility] [id number] 12:00:00 13:25:[address] [facility] 2023-06-06 2023-06-06 Outpatient [facility] SLE [id number] [facility] 12:05:21 12:05:21 ALONSO FERNÁNDEZ 2023-05-30 2023-05-30 Outpatient ANAI OSPINA [id number] Anai 00:00:00 00:00:00 Seybol d 2023-05-22 2023-05-22 Outpatient ANAI ROMERO [id number] Anai 14:10:00 14:10:00 FLORI Seybol d 2023-05-20 2023-05-20 Outpatient ANAI MARIE [id number] Anai 11:30:00 11:30:00 RAYMUNDO Seybol d 2023-05-20 2023-05-20 Outpatient ERIKA SUAZO ANAI OSPINA [id number] Anai 08:00:00 08:00:00 Seybol d 2023-05-20 2023-05-20 Outpatient ANAI OSPINA [id number] Anai 00:00:00 00:00:00 Seybol d 2023-05-17 2023-05-17 Outpatient ANAI MARIE [id number] Anai 00:00:00 00:00:00 RAYMUNDO Seybol d 2023-05-17 2023-05-17 Outpatient ANAI OSPINA [id number] Anai 00:00:00 00:00:00 Seybol d 2023-05-17 2023-05-17 Outpatient MICHELLE GARRETT ANAI OSPINA [id number] Anai 00:00:00 00:00:00 Seybol d 2023-05-14 2023-05-16 [facility] [id number] 05:13:00 15:42:00 Encounter [facility] 2023-05-14 2023-05-16 [facility] [id number] 05:13:00 15:42:00 Encounter Pr[facility] 2023-05-14 2023-05-16 [facility] Surgery [id number] [facility] 05:13:00 15:42:00 ALONSO FERNÁNDEZ 2023-05-16 2023-05-16 Outpatient ANAI OSPINA [id number] Anai 00:00:00 00:00:00 Seybol d 2023-05-15 2023-05-15 Outpatient ANAI MARIE [id number] Anai 08:30:00 08:30:00 RAYMUNDO Seybol d 2023-05-15 2023-05-15 Outpatient ANAI OSPINA [id number] Anai 00:00:00 00:00:00 Seybol d 2023-05-15 2023-05-15 Outpatient ANAI OSPINA [id number] Anai 00:00:00 00:00:00 Seybol d 2023-05-14 2023-05-14 Surgery [facility] [id number] 07:30:00 11:46:00 [facility] 2023-05-14 2023-05-14 Surgery [facility] [id number] 07:30:00 11:46:00 [facility] 2023-05-14 2023-05-14 [facility] [id number] 07:37:00 11:45:00 Event Annamarie [facility] 2023-05-14 2023-05-14 [facility] [id number] 07:37:00 11:45:00 Event Annamarie [facility] 2023-05-14 2023-05-14 Outpatient ANAI MARIE [id number] Anai 00:00:00 00:00:00 RAYMUNDO Seybol d 2023-05-14 2023-05-14 Travel [facility] [id number] [facility] 00[facility]00[facility]00 [facility] 2023-05-14 2023-05-14 Travel [facility] [id number] [facility] 00:00:00 [facility] 2023-05-09 2023-05-09 Outpatient ANAI OSPINA [id number] Anai 00:00:00 00:00:00 Seybol d 2023-05-09 2023-05-09 Outpatient ANAI MAREI [id number] Anai 00:00:00 00:00:00 RAYMUNDO Seybol d 2023-05-08 2023-05-08 Outpatient LAB90 ANAI ALMANZASEY [id number] Anai 08:10:00 08:10:00 Seybol d 2023-05-08 2023-05-08 Outpatient ANAI ANAI [id number] Anai 00:00:00 00:00:00 Seybol d 2023-05-07 2023-05-07 Outpatient LAB90 ANAI ANAI [id number] Anai 08:10:00 08:10:00 Seybol d 2023-05-07 2023-05-07 Outpatient PREZASANAI ANAI [id number] Anai 00:00:00 00:00:00 RAYMUNDO Seybol d 2023-05-07 2023-05-07 Outpatient PREZASANAI ANAI [id number] Anai 00:00:00 00:00:00 RAYMUNDO Seybol d 2023-05-07 2023-05-07 Outpatient ANAI OSPINA [id number] Anai 00:00:00 00:00:00 Seybol d 2023-05-06 2023-05-06 Outpatient ANAI OSPINA [id number] Anai 00:00:00 00:00:00 Seybol d 2023-05-03 2023-05-03 Outpatient [facility] ANAI OSPINA [id number] Anai 13:00:00 13:00:00 EDVIN Deutsch Se 2023-05-02 2023-05-02 Outpatient ANAI OSPINA [id number] Anai 00:00:00 00:00:00 Seybol d 2023-05-02 2023-05-02 Outpatient ANAI OSPINA [id number] Anai 00:00:00 00:00:00 Seybol d 2023-04-29 2023-04-29 Outpatient PREZAS ANAI OSPINA [id number] Anai 00:00:00 00:00:00 RAYMUNDO Seybol d 2023-04-25 2023-04-25 Outpatient ANAI OSPINA [id number] Anai 00:00:00 00:00:00 Seybol d 2023 2023 Outpatient ANAI OSPINA [id number] Anai 00:00:00 00:00:00 Seybol d 2023 2023 Outpatient ANAI OSPINA [id number] Anai 00:00:00 00:00:00 Seybol d 2023-04-18 2023-04-18 Outpatient ANAI MARIE [id number] Anai 00:00:00 00:00:00 RAYMUNDO Seybol d 2023-04-10 2023-04-10 Outpatient LAB90 ANAI OSPIAN [id number] Anai 16:15:00 16:15:00 Seybol d 2023-04-10 2023-04-10 Outpatient ANAI MARIE [id number] Anai 15:45:00 15:45:00 RAYMUNDO Seybol d 2023-04-06 2023-04-06 Outpatient ANAI OSPINA [id number] Anai 00:00:00 00:00:00 Seybol d 2023-04-05 2023-04-05 Outpatient [facility] ANAI OSPINA [id number] Anai 14:00:00 14:00:00 EDVIN Deutsch Se 2023-04-03 2023-04-03 Outpatient MICHELLE GARRETT [id number] Anai 09:10:00 09:10:00 Seybol d 2023-04-03 2023-04-03 Outpatient ANAI MARIE [id number] Anai 00:00:00 00:00:00 RAYMUNDO Seybol d 2023-03-31 2023-03-31 Outpatient ANAI MARIE [id number] Anai 00:00:00 00:00:00 RAYMUNDO Seybol d 2023-03-29 2023-03-29 Outpatient ERIKA SUAZO [id number] Anai 09:00:00 09:00:00 Seybol d 2023-03-25 2023-03-25 Outpatient ANAI MARIE [id number] Anai 00:00:00 00:00:00 RAYMUNDO Seybol d 2023-03-21 2023-03-21 Outpatient ANAI LU [id number] Anai 00:00:00 00:00:00 FLOR Seybol d 2023-03-21 2023-03-21 Outpatient PANT ANAI ALMANZASEY [id number] Anai 00:00:00 00:00:00 Olivier SHAW ANUPANA 2023-03-21 2023-03-21 Outpatient PANT ANAI OSPINA [id number] Anai 00:00:00 00:00:00 Olivier SHAW bold ANUPANA 2023-03-21 2023-03-21 Outpatient ANAI OSPINA [id number] Anai 00:00:00 00:00:00 Seybol d 2023-03-21 2023-03-21 Outpatient ANAI OSPINA [id number] Anai 00:00:00 00:00:00 Seybol d 2023-03-14 2023-03-14 Outpatient ANAI MARIE [id number] Anai 00:00:00 00:00:00 RAYMUNDO Seybol d 2023-03-08 2023-03-08 Outpatient [facility] ANAI OSPINA [id number] Anai 11:00:00 11:00:00 EDVIN Deutsch Se 2023-03-07 2023-03-07 Outpatient ANAI MARIE [id number] Anai 00:00:00 00:00:00 RAYMUNDO Seybol d 2023-03-06 2023-03-06 Outpatient LAB90 ANAI OSPINA [id number] Anai 17:15:00 17:15:00 Seybol d 2023-03-06 2023-03-06 Outpatient ANAI MARIE [id number] Anai 16:45:00 16:45:00 RAYMUNDO Seybol d 2023-03-05 2023-03-05 Outpatient ANAI FARR [id number] Anai 00:00:00 00:00:00 INGRIS Seybol d 2023-03-04 2023-03-04 Outpatient ANAI OSPINA [id number] Anai 10:15:00 10:15:00 Seybol d 2023-03-01 2023-03-01 Outpatient ERIKA SUAZO [id number] Anai 09:00:00 09:00:00 Seybol d 2023-02-26 2023-02-26 Outpatient DADA Green ANAI OSPINA [id number] Anai 15:15:00 15:15:00 Seybol d 2023-02-26 2023-02-26 Outpatient MICHELLE GARRETT ANAI OSPINA [id number] Anai 14:50:00 14:50:00 Seybol d 2023-02-24 2023-02-24 Outpatient BRODERICKMENDEZANAI [id number] Anai 00:00:00 00:00:00 RAYMUNDO Seybol d 2023-02-22 2023-02-22 Outpatient [facility] ANAI OSPINA [id number] Anai 13:00:00 13:00:00 EDVIN Deutsch Se 2023-02-21 2023-02-21 Outpatient ANAI OSPINA [id number] Anai 00:00:00 00:00:00 Seybol d 2023-02-16 2023-02-20 [facility] 1.2.840 .1 [id number] Methodi 10:05:00 12:02:00 En[place] [id number] [facility] 3.430.2.7 Hospita .3.678037 l .8 2023-02-16 2023-02-20 [facility] 1.2.840 .1 [id number] Methodi 10:05:00 12:02:00 Encounter [place] 79084.1.1 113 [facility] 3.430.2.7 Hospita .3.793452 l .8 2023-02-19 2023-02-19 Outpatient NAAI OJEDA [id number] Anai 00:00:00 00:00:00 LAUREEN Seyb old 2023-02-18 2023-02-18 Outpatient ANAI OSPINA [id number] Anai 00:00:00 00:00:00 Seybol d 2023-02-18 2023-02-18 Outpatient ANAI OSPINA [id number] Anai 00:00:00 00:00:00 Seybol d 2023-02-10 2023-02-13 [facility] 1.2.840.1 [id number] Methodi 17:12:00 16:35:00 Encounter Angelique Spann 15778.1.[address] 3.430.2.7 Hospit a .3.964641 l .8 2023-02-10 2023-02-13 [facility] 1.2.840.1 [id number] Methodi 17:12:00 16:35:00 Encounter Angelique Spann 31138.1.[address] 3.430.2.7 Hospit a .3.634826 l .8 2023-02-12 2023-02-12 Outpatient ANAI MARIE [id number] Anai 11:30:00 11:30:00 RAYMUNDO Seybol d 2023-02-12 2023-02-12 Outpatient ANAI OJEDA [id number] Anai 00:00:00 00:00:00 LAUREEN Seyb old 2023-02-12 2023-02-12 Outpatient ANAI OSPINA [id number] Anai 00:00:00 00:00:00 Seybol d 2023-02-11 2023-02-11 Outpatient ANAI MARIE [id number] Anai 11:45:00 11:45:00 RAYMUNDO Seybol d 2023-02-11 2023-02-11 Outpatient ERIKA SUAZO [id number] Anai 09:00:00 09:00:00 Seybol d 2023-02-07 2023-02-07 Outpatient ANAI OSPINA [id number] Anai 00:00:00 00:00:00 Seybol d 2023-02-05 2023-02-05 Outpatient ANAI OSPINA [id number] Anai 00:00:00 00:00:00 Seybol d 2023-02-04 2023-02-04 Outpatient ANAI OSPINA [id number] Anai 00:00:00 00:00:00 Seybol d 2023-02-04 2023-02-04 Outpatient ANAI OSPINA [id number] Anai 00:00:00 00:00:00 Seybol d 2023-02-04 2023-02-04 Outpatient PREZAS, ANAI OSPINA [id number] Anai 00:00:00 00:00:00 RAYMUNDO Seybol d 2023-02-04 2023-02-04 Outpatient PREZAS, ANAI OSPINA [id number] Anai 00:00:00 00:00:00 RAYMUNDO Seybol d 2023-01-31 2023-02-03 [facility] 1.2.840 .1 [id number] Methodi 18:58:00 15:30:00 Encounter Girish Cornell 50886.1.[address] 3.430.2.7 Hospit a .3.335034 l .8 2023-01-31 2023-02-03 [facility] 1.2.840 .1 [id number] Methodi 18:58:00 15:30:00 Encounter Girish Cornell 63271.1.[address] 3.430.2.7 Hospit a .3.277865 l .8 2023-01-31 2023-01-31 Outpatient PREZAS, ANAI OSPINA [id number] Anai 10:00:00 10:00:00 RAYMUNDO Seybol d 2023-01-31 2023-01-31 Outpatient PREZAS, ANAI OSPINA [id number] Anai 00:00:00 00:00:00 RAYMUNDO Seybol d 2023-01-31 2023-01-31 Outpatient ANAI OSPINA [id number] Anai 00:00:00 00:00:00 Seybol d 2023-01-28 2023-01-28 Outpatient ANAI OSPINA [id number] Anai 00:00:00 00:00:00 Seybol d 2023-01-27 2023-01-27 Outpatient PREZASANAI [id number] Anai 00:00:00 00:00:00 RAYMUNDO Seybol d 2023-01-25 2023-01-25 Outpatient ANAI MARIE [id number] Anai 00:00:00 00:00:00 RAYMUNDO Seybol d 2023-01-24 2023-01-24 Outpatient ANAI OSPINA [id number] Anai 00:00:00 00:00:00 Seybol d 2023-01-23 2023-01-23 Outpatient ANAI OSPINA [id number] Anai 00:00:00 00:00:00 Seybol d 2023-01-23 2023-01-23 Outpatient ANAI OSPINA [id number] Anai 00:00:00 00:00:00 Seybol d 2023-01-22 2023-01-22 Outpatient PREZAANAI Trivedi [id number] Anai 00:00:00 00:00:00 RAYMUNDO Seybol d 2023-01-22 2023-01-22 Outpatient ANAI RENEE [id number] Anai 00:00:00 00:00:00 MARGARITO Seyb old 2023-01-21 2023-01-21 Outpatient PREZAANAI Trivedi [id number] Anai 00:00:00 00:00:00 RAYMUNDO Seybol d 2023-01-17 2023-01-17 Outpatient ERIKA SUAZO [id number] Anai 12:00:00 12:00:00 Seybol d 2023-01-11 2023-01-11 Outpatient ANAI MARIE [id number] Anai 11:45:00 11:45:00 RAYMUNDO Seybol d 2023-01-02 2023-01-02 Outpatient PREZAANAI Trivedi [id number] Anai 00:00:00 00:00:00 RAYMUNDO Seybol d 2022-12-31 2022-12-31 Outpatient PREANAI ELMORE [id number] Anai 00:00:00 00:00:00 RAYMUNDO Seybol d 2022-12-27 2022-12-27 Outpatient ANAI OSPINA [id number] Anai 09:00:00 09:00:00 Seybol d 2022-12-27 2022-12-27 Outpatient ERIKA SUAZO ANAI OSPINA [id number] Anai 09:00:00 09:00:00 Seybol d 2022-12-26 2022-12-26 Outpatient LAB90 ANAI OSPINA [id number] Anai 08:45:00 08:45:00 Seybol d 2022-12-26 2022-12-26 Outpatient BRAD ANAI OSPINA [id number] Anai 08:15:00 08:15:00 RAYMUNDO Seybol d 2022-12-13 2022-12-13 Outpatient ERIKA SUAZO ANAI OSPINA [id number] Anai 13:00:00 13:00:00 Seybol d 2022-12-13 2022-12-13 Outpatient [place] ANAI OSPINA [id number] Anai 00:00:00 00:00:00 AEDVIN Se ybbartolome 2022-12-04 2022-12-04 Outpatient PREMENDZE ANAI OSPINA [id number] Anai 00:00:00 00:00:00 RAYMUNDO Seybol d 2022-12-03 2022-12-03 Outpatient PREMENDEZ ANAI OSPINA [id number] Anai 00:00:00 00:00:00 RAYMUNDO Seybol d 2022-11-19 2022-11-19 Outpatient ERIKA SUAOZ ANAI OSPINA [id number] Anai 00:00:00 00:00:00 Seybol d 2022-11-19 2022-11-19 Outpatient [place] ANAI OSPINA [id number] Anai 00:00:00 00:00:00 EDVIN Deutsch Se ybold 2022-11-16 2022-11-16 Outpatient DANIELLE ROGEL [id number] Anai 09:00:00 09:00:00 Seybol d 2022-11-13 2022-11-13 Outpatient ANAI OSPINA [id number] Anai 11:00:00 11:00:00 Seybol d 2022-11-13 2022-11-13 Outpatient TYRONE ESTRADA [id number] Anai 00:00:00 00:00:00 Seybol d 2022-11-13 2022-11-13 Outpatient ANAI LIRA [id number] Anai 00:00:00 00:00:00 YITZCHAK Seybo ld 2022-11-11 2022-11-11 Outpatient PREZAANAI Trivedi [id number] Anai 00:00:00 00:00:00 RAYMUNDO Seybol d 2022-11-09 2022-11-09 Outpatient ANAI LIRA [id number] Anai 13:15:00 13:15:00 YITZCHAK Seybo ld 2022-11-09 2022-11-09 Outpatient PREZAANAI Trivedi [id number] Anai 00:00:00 00:00:00 RAYMUNDO Seybol d 2022-11-08 2022-11-08 Outpatient [place] ANAI OSPINA [id number] Anai 00:00:00 00:00:00 Get EDVINTree puente 2022-11-07 2022-11-07 Outpatient PREZAS, ANAI OSPINA [id number] Anai 14:45:00 14:45:00 RAYMUNDO Seybol d 2022-11-07 2022-11-07 Outpatient PREZAANAI Trivedi [id number] Anai 00:00:00 00:00:00 RAYMUNDO Seybol d 2022-11-07 2022-11-07 Outpatient [place] ANAI OSPINA [id number] Anai 00:00:00 00:00:00 Get EDVINTree puente 2022-11-06 2022-11-06 Outpatient ANAI OSPINA [id number] Anai 15:00:00 15:00:00 Seybol d 2022-11-06 2022-11-06 Outpatient ANAI OSPINA [id number] Anai 14:00:00 14:00:00 Seybol d 2022-11-06 2022-11-06 Outpatient [place] ANAI OSPINA [id number] Anai 00:00:00 00:00:00 Get EDVINMARY puente 2022-11-05 2022-11-05 Outpatient SORAYA, ANAI OSPINA [id number] Anai 00:00:00 00:00:00 CHARANJIT Romeoo ld 2022-10-31 2022-10-31 Outpatient [place] ANAI ANAI [id number] Anai 15:30:00 15:30:00 A, EDVIN ybold 2022-10-31 2022-10-31 Outpatient [place] ANAI ANAI [id number] Anai 15:00:00 15:00:00 A, EDVIN Se ybold 2022-10-30 2022-10-30 Outpatient [place] ANAI ANAI [id number] Anai 00:00:00 00:00:00 A, EDVIN Se ybold 2022-10-30 2022-10-30 Outpatient [place] ANAI ANAI [id number] Anai 00:00:00 00:00:00 A, EDVIN Se ybold 2022-10-29 2022-10-29 Outpatient ANAI OSPINA [id number] Anai 10:30:00 10:30:00 Seybol d 2022-10-26 2022-10-26 Outpatient RADIOLOGY, ANAI OSPINA [id number] Anai 00:00:00 00:00:00 DEPT Seybol d 2022-10-25 2022-10-25 Outpatient CHANELL, SCOTT ANAI OSPINA [id number] Anai 13:45:00 13:45:00 Seybol d 2022-10-25 2022-10-25 Outpatient PREZAS, ANAI OSPINA [id number] Anai 00:00:00 00:00:00 RAYMUNDO Seybol d 2022-10-25 2022-10-25 Outpatient PREZAS, ANAI OSPINA [id number] Anai 00:00:00 00:00:00 RAYMUNDO Seybol d 2022-10-25 2022-10-25 Outpatient RADIOLOGY, ANAI OSPINA [id number] Anai 00:00:00 00:00:00 DEPT Seybol d 2022-10-24 2022-10-24 Outpatient PREZAS, ANAI OSPINA [id number] Anai 00:00:00 00:00:00 RAYMUNDO Seybol d 2022-10-24 2022-10-24 Outpatient SORAYA ANAI OSPINA [id number] Anai 00:00:00 00:00:00 YINOLA Seybo ld 2022-10-22 2022-10-22 Outpatient DANAANAI [id number] Anai 00:00:00 00:00:00 MANSI-MARY ybold A 2022-10-19 2022-10-19 Outpatient PREZAANAI Trivedi [id number] Anai 10:30:00 10:30:00 RAYMUNDO Seybol d 2022-10-19 2022-10-19 Outpatient ANAI OSPINA [id number] Anai 10:30:00 10:30:00 Seybol d 2022-10-18 2022-10-18 Outpatient LAB39 ANAI OSPINA [id number] Anai 09:55:00 09:55:00 Seybol d 2022-10-18 2022-10-18 Outpatient ANAI ABREU [id number] Anai 09:15:00 09:15:00 HALLIE Seybol d 2022-10-18 2022-10-18 Outpatient PREZASANAI [id number] Anai 00:00:00 00:00:00 RAYMUNDO Seybol d 2022-10-08 2022-10-08 Outpatient PREZASANAI [id number] Anai 00:00:00 00:00:00 RAYMUNDO Seybol d 2022-10-06 2022-10-06 Outpatient PREZASANAI [id number] Anai 00:00:00 00:00:00 RAYMUNDO Seybol d 2022-10-02 2022-10-02 Outpatient PREZASANAI [id number] Anai 00:00:00 00:00:00 RAYMUNDO Seybol d 2022-09-21 2022-09-21 Outpatient PREZASANAI [id number] Anai 11:00:00 11:00:00 RAYMUNDO Seybol d 2022-09-15 2022-09-15 Outpatient PREZASANAI [id number] Anai 00:00:00 00:00:00 RAYMUNDO Seybol d 2022-09-14 2022-09-14 Outpatient ANAI OSPINA [id number] Anai 07:30:00 07:30:00 Seybol d 2022-09-14 2022-09-14 Outpatient PREZAS, ANAI OSPINA [id number] Anai 00:00:00 00:00:00 RAYMUNDO Seybol d 2022-09-08 2022-09-08 Outpatient PREZAS, ANAI OSPINA [id number] Anai 00:00:00 00:00:00 RAYMUNDO Seybol d 2022-09-07 2022-09-07 Outpatient LAB90 ANAI OSPINA [id number] Anai 14:20:00 14:20:00 Seybol d 2022-09-07 2022-09-07 Outpatient PREZAS, ANAI OSPINA [id number] Anai 13:45:00 13:45:00 RAYMUNDO Seybol d 2022-08-14 2022-08-14 Outpatient PREZAS, ANAI OSPINA [id number] Anai 00:00:00 00:00:00 RAYMUNDO Seybol d 2022-08-03 2022-08-03 Outpatient PREZAS, ANAI OSPINA [id number] Anai 00:00:00 00:00:00 RAYMUNDO Seybol d 2022-07-26 2022-07-26 Outpatient PREZAS, ANAI OSPINA [id number] Anai 08:30:00 08:30:00 RAYMUNDO Seybol d 2022-07-17 2022-07-17 Outpatient PREZAS, ANAI OSPINA [id number] Anai 08:00:00 08:00:00 RAYMUNDO Seybol d 2022-06-27 2022-06-27 Outpatient LAB90 ANAI OSPINA [id number] Anai 08:30:00 08:30:00 Seybol d 2022-06-26 2022-06-26 Outpatient PREZAS, ANAI OSPINA [id number] Anai 09:00:00 09:00:00 RAYMUNDO Seybol d 2022-04-26 2022-04-26 Outpatient PREZAS, ANAI OSPINA [id number] Anai 09:15:00 09:15:00 RAYMUNDO Seybol d 2022-04-26 2022-04-26 Outpatient PREZAS, ANAI ANAI [id number] Anai 08:15:00 08:15:00 RAYMUNDO Seybol d 2022-04-09 2022-04-09 Outpatient PREZAS, ANAI ANAI [id number] Anai 00:00:00 00:00:00 RAYMUNDO Seybol d 2022-04-05 2022-04-05 Outpatient PREZAS, ANAI OSPINA [id number] Anai 00:00:00 00:00:00 RAYMUNDO Seybol d 2022-04-04 2022-04-04 Outpatient LAB90 ANAI OSPINA [id number] Anai 10:45:00 10:45:00 Seybol d 2022-04-04 2022-04-04 Office PreJorge elmore [id number] Anai 10:15:00 10:30:00 Visit Raymundo Boyd 350.1.13.13 Se ybold [id number] [id number] 2022-03-30 2022-03-30 Outpatient PREZAS, ANAI ANAI [id number] Anai 00:00:00 00:00:00 RAYMUNDO Seybol d 2022-03-07 2022-03-07 Office PreJorge elmore [id number] Anai 11:30:00 12:00:00 Visit Raymundo Boyd 350.1.13.13 Se ybold [id number] [id number] 2022-03-07 2022-03-07 Outpatient PREZAS, ANAI OSPINA [id number] Anai 00:00:00 00:00:00 RAYMUNDO Seybol d 2022-02-23 2022-02-23 Outpatient LAB90 ANAI OSPINA [id number] Anai 08:30:00 08:30:00 Seybol d 2022-02-23 2022-02-23 Outpatient PREZAS, ANAI OSPINA [id number] Anai 00:00:00 00:00:00 RAYMUNDO Seybol d 2022-02-05 2022-02-05 Outpatient PREZAS, ANAI OSPINA [id number] Anai 00:00:00 00:00:00 RAYMUNDO Seybol d 2022-02-02 2022-02-02 Outpatient PREZAS, ANAI OSPINA [id number] Anai 00:00:00 00:00:00 RAYMUNDO Seybol d 2022-02-01 2022-02-01 Outpatient PREZAS, ANAI OSPINA [id number] Anai 00:00:00 00:00:00 RAYMUNDO Seybol d 2022-01-25 2022-01-25 Outpatient PREZAS, ANAI OSPINA [id number] Anai 00:00:00 00:00:00 RAYMUNDO Seybol d 2022-01-25 2022-01-25 Outpatient PREZAS, ANAI OSPINA [id number] Anai 00:00:00 00:00:00 RAYMUNDO Seybol d 2022-01-24 2022-01-24 Office PreJorge elmore 1.2.840.114 [id number] Anai 09:00:00 09:30:00 Visit Raymundo Oliver 350.1.13.13 Se ybold [id number] [id number] 2022-01-19 2022-01-19 Outpatient PREZAS, ANAI OSPINA [id number] Anai 08:30:00 08:30:00 RAYMUNDO Seybol d 2021-12-20 2021-12-20 Outpatient PREZAS, ANAI OSPINA [id number] Anai 00:00:00 00:00:00 RAYMUNDO Seybol d 2021-12-14 2021-12-14 Outpatient PREZAS, ANAI OSPINA [id number] Anai 00:00:00 00:00:00 RAYMUNDO Seybol d 2021-12-08 2021-12-08 Outpatient PREZASANAI [id number] Anai 08:00:00 08:00:00 RAYMUNDO Seybol d 2021-11-29 2021-11-29 Outpatient PREZASANAI [id number] Anai 00:00:00 00:00:00 RAYMUNDO Seybol d 2021-11-24 2021-11-24 Office Jorge MARIE 1.2.840.114 [id number] Anai 13:30:00 13:30:00 Visit RAYMUNDO Boyd 350.1.13.13 Se ybold 1.2.7.2.686 [id number] 2021-11-24 2021-11-24 Outpatient PREZAShikha, ANAI OSPINA [id number] Anai 09:00:00 09:00:00 RAYMUNDO Seybol d 2021-11-21 2021-11-21 Outpatient PREZAShikha, ANAI OSPINA [id number] Anai 00:00:00 00:00:00 RAYMUNDO Seybol d 2021-11-20 2021-11-20 Outpatient PREANAI ELMORE [id number] Anai 00:00:00 00:00:00 RAYMUNDO Seybol d 2021-11-20 2021-11-20 Outpatient ANAI MENDIETA [id number] Anai 00:00:00 00:00:00 AVA Seybol d 2021-11-16 2021-11-16 Office Jorge Marie [id number] [id number] Anai 08:00:00 08:15:00 Visit Raymundo Boyd 350.1.13.13 Se ybold [id number] [id number] 2021-11-15 2021-11-15 Outpatient PREZAShikha, ANAI OSPINA [id number] Anai 00:00:00 00:00:00 RAYMUNDO Seybol d 2021-10-31 2021-10-31 Outpatient LAB90 ANAI OSPINA [id number] Anai 10:15:00 10:15:00 Seybol d 2021-10-31 2021-10-31 Office Jorge Marie 1.2.840.114 [id number] Anai 09:45:00 10:00:00 Visit Raymundo Boyd 350.1.13.13 Se ybold 1.2.7.2.686 [id number] 2021-10-30 2021-10-30 Outpatient PREZAShikha, ANAI OSPINA [id number] Anai 00:00:00 00:00:00 RAYMUNDO Seybol d 2021-09-25 2021-09-25 Outpatient PREMENDEZ ANAI OSPINA [id number] Anai 00:00:00 00:00:00 RAYMUNDO Seybol d 2021-09-22 2021-09-22 Outpatient LAB90 ANAI OSPINA [id number] Anai 08:10:00 08:10:00 Seybol d 2021-09-20 2021-09-20 Outpatient PREMENDEZ, ANAI OSPINA [id number] Anai 00:00:00 00:00:00 RAYMUNDO Seybol d 2021-09-18 2021-09-18 Outpatient PREZAANAI Trivedi [id number] Anai 00:00:00 00:00:00 RAYMUNDO Seybol d 2021-09-18 2021-09-18 Outpatient PRETOÑOANAI Trivedi [id number] Anai 00:00:00 00:00:00 RAYMUNDO Seybol d 2021-09-15 2021-09-15 Office Jorge Marie [id number] Anai 14:45:00 15:30:00 Visit Raymundo Boyd [id number] Se puente [id number] Results Test Test Test Results Result Source Description Time Comments Comments CARDIAC CATH 2023-05 Ordered by an unspecified [facility] REPORT - SCAN -10 provider. [facility] 10:[facility]:[address] ECG 12 lead 2023-05 Ventricular Rate 72 BPMAtrial [facility] -10 Rate 71 BPMQRS Duration 166 [facility] 09:42:2 msQ-T Interval 470 msQTC [facility] 1 Calculation(Bazett) 514 msR Center Oxly 67 degreesT Oxly 256 degrees Atrial fibrillationLeft bundle branch blockAbnormal ECGWhen compared with ECG of 14-MAY-2023 05:40,ventricular rate is decreasedConfirmed by Pancho Bowman ([id number]) on 06/07/2023 9:42:19 AM ECHO W CONTRAST 2023-05 Transthoracic Echocardiography [facility] & DOPPLER -09 Report (TTE) Demographics [facility] 17:57:4 Patient Name YVES NICHOLS Date of Medical 3 Study 06/06/2023 [facility] [id number] Gender Male Visit Number [id number] Race Unknown Room Number SCLP Number Date of 1945 Referring Physician Eusebio Cuevas Age 78 year(s) Automatic Seamer Ryan Ramesh Interpreting Nati Osborn MD Physician Fellow Leonora Faulkner Type of Study TTE procedure:LIMITED 2D ECHOCARDIOGRAM (STAT)Indications:Known or suspected heart failure.Clinical HistoryAFIBHYPOTHYROIDISMOSA ON CPAPDM IICARDIOVERSION (01/2023)EPS / RFA (05/14/2023)Contrast Medium: Definity. Amount - 2 mlHeight: 66 inches Weight: 85.73 kg (189 lbs) BSA: 1.95 m^2 BMI: 30.51 kg/m^2HR: 68 bpm BP: 121/71 mmHg Summary The left ventricle chamber size (by vol index) is moderately enlarged (male - LVED vol >100ml/m2). Mild concentric LV hypertrophy. All of the LV segments are moderately hypokinetic. Global LV systolic function moderately reduced . Estimated LVEF by qualitative assessment is moderately reduced (35%) . Septal motion is abnormal, likely related to conduction abnormality . Signature -- -- Findings Rhythm/BP Paced vs BBB during the exam. Left Ventricle The left ventricle chamber size (by vol index) is moderately enlarged (male - LVED vol >100ml/m2). Mild concentric LV hypertrophy. All of the LV segments are moderately hypokinetic. Estimated LVEF by qualitative assessment is moderately reduced (35%) . Global LV systolic function moderately reduced . Septal motion is abnormal, likely related to conduction abnormality . Left Atrium LA size is severely enlarged (>48 ml/m2) . Right Ventricle Normal RV size and systolic function. Right Atrium RA cavity size is severely enlarged . Atrial Septum Normal interatrial septum by available views. Aortic Valve Trileaflet aortic valve. Aortic annulus appears calcified . Mild AoV cusp thickening. Mitral Valve Moderate mitral regurgitation. Mild MV leaflet thickening. Tricuspid Valve TV structure is normal. Moderate to severe tricuspid regurgitation. Estimated peak systolic PA pressure is 50-55 mmHg including the RA pressure (moderate pulmonary hypertension) . Pulmonic Valve Normal PV structure and function by limited views and Doppler. Mild pulmonary regurgitation. Aorta Not well visualized. Pericardium No pericardial effusion is visualized. IVC/SVC/PA/PV/Pleural The estimated RA pressure by IVC dynamics 11-15mmHg .Chambers/Structures Left Atrium LA Volume: 246.02 ml LA Area: 51.93 cm^2 LA Vol. Index: 126 ml/m^2 Left Ventricle LVIDd: 6.29 cm LVEDV:192.94 ml LVIDs: 4.76 cm LV Septum Diastolic: 1.4 cm LV PW Diastolic: 1.1 cm LV FS: 24.3 % LVEDV Browning's:204.29 ml LVESV Browning's:134.95 ml LVEDVI: 105 ml/m^2 LVEF Browning's: 33.9 % LVESVI: 69 ml/m^2 LVOT Diameter: 2.18 cm Right Atrium RA Vol. (Sngl Plane): 83.13 ml Right Ventricle RVOT VTI: 12.61 cm TAPSE: 1.31 cmAorta Ao Root S of Ramona.: 3.63 cm Ascending Aorta: 3.[address] Junction: 2.87 cmDoppler/Quantitative Measurements Mitral Valve MV Peak E-Wave: 0.91 m/s MV Peak A-Wave: 0.36 m/s E/A Ratio: 2.53 Peak Gradient: 3.33 mmHg Deceleration Time: 112.5 msec MV Jax. Peak: Tissue Doppler E' Septal Velocity: 0.02 m/s E/E': 44.45 E' Lateral Velocity: 0.11 m/s Aortic Valve Peak Velocity: 1.75 m/s Mean Velocity: 1.03 m/s Peak Gradient: 12.31 mmHg Mean Gradient: 5.3 mmHg AV Area (continuity): 1.7 cm^2 AV VTI: 30.57 cm AV DVI: 0.45 LVOT Peak Velocity: 0.71 m/s Peak Gradient: 2.02 mmHg Mean Velocity: 0.41 m/s Mean Gradient: 0.88 mmHg LVOT Diameter: 2.18 cm LVOT VTI: 13.9 cm LVOT Area: 3.73 cm^2 LVOT SV:51.86 ml LVOT CO: 3.53 l/min LVOT CI: 1.81 l/min/m^2 RVOT RVOT VTI (PW): 11.07 cm Tricuspid Valve TR Velocity: 3.3 m/s TR Gradient: 43.52 mmHg Pulmonic Valve Peak Velocity: 0.92 m/s Peak Gradient: 3.36 mmHg Mean Velocity: 0.49 m/s Mean Gradient: 0.95 mmHg POC-Glucose meter 2023-06-06 15:22:23 Test Item Value Reference Range Interpretation Comme nts POC-Glucose Meter (test code = 80 mg/dL 70-110 : TESTED AT [facility] [address] [place] [address] 1538) [facility], [facility] 30: Lead Driver/Techni ernestine ID = [id number] for ANGELA FIGUEROA Lab Interpretation (test code = Normal 53030-9) [facility] [id number] 15:22:23 Test Item Value Reference Range Interpretation Comments POC-GLUCOSE METER 80 mg/dL 70-110 : TESTED [place] [address] (BEAKER) (test code = LOCSHANELL Cummings [facility], 1538) [address]: Lead Driver/Techni ernestine ID = [id number] for MARITZA CATHYANGELA [id number] 06:37:11 Test Item Value Reference Range Interpretation Comments ACTIVATED CLOTTING TIME 335 sec : 74 -137 seconds, (BEAKER) (test code = Baseli ne: TESTED AT 441) [address], [facility] 30: Lead Driver/Techni ernestine ID = [id number] for Steve mckeon (contract)Brenda [id number] 06:36:49 Test Item Value Reference Range Interpretation Comments ACTIVATED CLOTTING TIME 323 sec : 74 -137 seconds, (BEAKER) (test code = Baseli ne: TESTED AT 441) [address], [address]: Lead Driver/Techni ernestine ID = [id number] for Wilson mmes (contract), Brenda an [id number] 06:36:48 Test Item Value Reference Range Interpretation Comments ACTIVATED CLOTTING TIME 263 sec : 74 -137 seconds, (BEAKER) (test code = Baseli ne: TESTED AT 441) [facility] [address] [facility], [address]: Lead Driver/Techni ernestine ID = [id number] for Wilson mmes (contract), Brenda an [id number] 06:36:48 Test Item Value Reference Range Interpretation Comments ACTIVATED CLOTTING TIME 215 sec : 74 -137 seconds, (BEAKER) (test code = Baseli ne: TESTED AT 441) [facility] [address] [facility], [address]: Lead Driver/Techni ernestine ID = [id number] for Wilson mmes (contract), Brenda an CARDIAC CATH REPORT - [id number] 10:02:44Ordered by an unspecified provider. [facility] METABOLIC [id number] 10:21:49 Test Item Value Reference Range Interpretation Comments SODIUM (BEAKER) 137 meq/L 136-145 (test code = 381) POTASSIUM 4.0 meq/L 3.5-5.1 (BEAKER) (test code = 379) CHLORIDE (BEAKER) 103 meq/L 98-107 (test code = 382) CO2 (BEAKER) 28 meq/L 22-29 (test code = 355) BLOOD UREA 20 mg/dL 7-21 NITROGEN (BEAKER) (test code = 354) CREATININE 0.91 mg/dL 0.57-1.25 (BEAKER) (test code = 358) GLUCOSE RANDOM 180 mg/dL 70-105 H (BEAKER) (test code = 652) CALCIUM (BEAKER) 9.2 mg/dL 8.4-10.2 (test code = 697) EGFR (BEAKER) 88 Interpretatio n of eGFR (test code = mL/min/1.73 values Stage De scription 1092) sq m Result G1 Jewell l or high >=90 G2 Mildly decreased 60-89 G3a Mildl y to moderately 45-5 9 G3b Moderately to s everely 30-44 G4 Severl y decreased 15-29 G5 Kidney failure <15Reported eGF R is based on the CKD-EPI 2021 equation that d oes not use a race coefficientEsti mated GFR is not as accur ate as Creatinine Catie laurent in predicting glom erular filtration rate . Estimated GFR is not appl icable for dialysis patien ts Lead Driver ID - emCBC W/PLT COUNT & AUTO [id number] 10:02:43 Test Item Value Reference Range Interpretation Comments WHITE BLOOD CELL COUNT (BEAKER) 6.2 K/ L 3.5-10.5 (test code = 775) RED BLOOD CELL COUNT (BEAKER) 3.50 M/ L 4.63-6.08 L (test code = 761) HEMOGLOBIN (BEAKER) (test code = 10.2 GM/DL 13.7-17.5 L 410) HEMATOCRIT (BEAKER) (test code = 32.4 % 40.1-51.0 L 411) MEAN CORPUSCULAR VOLUME (BEAKER) 93 fL 79-92 H (test code = 753) MEAN CORPUSCULAR HEMOGLOBIN 29.1 pg 25.7-32.2 (BEAKER) (test code = 751) MEAN CORPUSCULAR HEMOGLOBIN CONC 31.5 GM/DL 32.3-36.5 L (BEAKER) (test code = 752) RED CELL DISTRIBUTION WIDTH 14.3 % 11.6-14.4 (BEAKER) (test code = 412) PLATELET COUNT (BEAKER) (test 145 K/CU MM 150-450 L code = 756) MEAN PLATELET VOLUME (BEAKER) 9.6 fL 9.4-12.4 (test code = 754) NUCLEATED RED BLOOD CELLS 0 /100 WBC 0-0 (BEAKER) (test code = 413) NEUTROPHILS RELATIVE PERCENT 70 % (BEAKER) (test code = 429) LYMPHOCYTES RELATIVE PERCENT 17 % (BEAKER) (test code = 430) MONOCYTES RELATIVE PERCENT 10 % (BEAKER) (test code = 431) EOSINOPHILS RELATIVE PERCENT 2 % (BEAKER) (test code = 432) BASOPHILS RELATIVE PERCENT 1 % (BEAKER) (test code = 437) NEUTROPHILS ABSOLUTE COUNT 4.35 K/ L 1.78-5.38 (BEAKER) (test code = 670) LYMPHOCYTES ABSOLUTE COUNT 1.05 K/ L 1.32-3.57 L (BEAKER) (test code = 414) MONOCYTES ABSOLUTE COUNT (BEAKER) 0.62 K/ L 0.30-0.82 (test code = 415) EOSINOPHILS ABSOLUTE COUNT 0.14 K/ L 0.04-0.54 (BEAKER) (test code = 416) BASOPHILS ABSOLUTE COUNT (BEAKER) 0.03 K/ L 0.01-0.08 (test code = 417) IMMATURE GRANULOCYTES-RELATIVE 0.50 % 0.00-1.00 PERCENT (BEAKER) (test code = 2801) BASIC METABOLIC [id number] 09:02:34 Test Item Value Reference Range Interpretation Comments SODIUM (BEAKER) 136 meq/L 136-145 (test code = 381) POTASSIUM 4.5 meq/L 3.5-5.1 Specimen slight ly (BEAKER) (test hemolyzed code = 379) CHLORIDE (BEAKER) 104 meq/L 98-107 (test code = 382) CO2 (BEAKER) 23 meq/L 22-29 (test code = 355) BLOOD UREA 18 mg/dL 7-21 NITROGEN (BEAKER) (test code = 354) CREATININE 0.88 mg/dL 0.57-1.25 Specimen slight ly (BEAKER) (test hemolyzed code = 358) GLUCOSE RANDOM 147 mg/dL 70-105 H (BEAKER) (test code = 652) CALCIUM (BEAKER) 8.7 mg/dL 8.4-10.2 (test code = 697) EGFR (BEAKER) 90 Interpretatio n of eGFR (test code = mL/min/1.73 values Stage De scription 1092) sq m Result G1 Jewell l or high >=90 G2 Mildly decreased 60-89 G3a Mildl y to moderately 45-5 9 G3b Moderately to s everely 30-44 G4 Severl y decreased 15-29 G5 Kidney failure <15Reported eGF R is based on the CKD-EPI 2021 equation that d oes not use a race coefficientEsti mated GFR is not as accur ate as Creatinine Catie laurent in predicting glom erular filtration rate . Estimated GFR is not appl icable for dialysis patien ts Lead Driver ID - BSCBC W/PLT COUNT & AUTO [id number] 07:00:14 Test Item Value Reference Range Interpretation Comments WHITE BLOOD CELL COUNT (BEAKER) 6.7 K/ L 3.5-10.5 (test code = 775) RED BLOOD CELL COUNT (BEAKER) 3.54 M/ L 4.63-6.08 L (test code = 761) HEMOGLOBIN (BEAKER) (test code = 10.6 GM/DL 13.7-17.5 L 410) HEMATOCRIT (BEAKER) (test code = 33.6 % 40.1-51.0 L 411) MEAN CORPUSCULAR VOLUME (BEAKER) 95 fL 79-92 H (test code = 753) MEAN CORPUSCULAR HEMOGLOBIN 29.9 pg 25.7-32.2 (BEAKER) (test code = 751) MEAN CORPUSCULAR HEMOGLOBIN CONC 31.5 GM/DL 32.3-36.5 L (BEAKER) (test code = 752) RED CELL DISTRIBUTION WIDTH 14.1 % 11.6-14.4 (BEAKER) (test code = 412) PLATELET COUNT (BEAKER) (test 148 K/CU MM 150-450 L code = 756) MEAN PLATELET VOLUME (BEAKER) 9.3 fL 9.4-12.4 L (test code = 754) NUCLEATED RED BLOOD CELLS 0 /100 WBC 0-0 (BEAKER) (test code = 413) NEUTROPHILS RELATIVE PERCENT 65 % (BEAKER) (test code = 429) LYMPHOCYTES RELATIVE PERCENT 19 % (BEAKER) (test code = 430) MONOCYTES RELATIVE PERCENT 13 % (BEAKER) (test code = 431) EOSINOPHILS RELATIVE PERCENT 2 % (BEAKER) (test code = 432) BASOPHILS RELATIVE PERCENT 0 % (BEAKER) (test code = 437) NEUTROPHILS ABSOLUTE COUNT 4.34 K/ L 1.78-5.38 (BEAKER) (test code = 670) LYMPHOCYTES ABSOLUTE COUNT 1.27 K/ L 1.32-3.57 L (BEAKER) (test code = 414) MONOCYTES ABSOLUTE COUNT (BEAKER) 0.86 K/ L 0.30-0.82 H (test code = 415) EOSINOPHILS ABSOLUTE COUNT 0.16 K/ L 0.04-0.54 (BEAKER) (test code = 416) BASOPHILS ABSOLUTE COUNT (BEAKER) 0.03 K/ L 0.01-0.08 (test code = 417) IMMATURE GRANULOCYTES-RELATIVE 0.40 % 0.00-1.00 PERCENT (BEAKER) (test code = 2801) POC ACTIVATED CLOTTING [id number] 12:55:59 Test Item Value Reference Range Interpretation Comments Activated Clotting Time 167 sec : 74 -137 seconds, (test code = 3184-9) Baselin e: TESTED AT [address], [address]: Lead Driver/Techni ernestine ID = [id number] for Ba rba, [facility] ACTIVATED CLOTTING [id number] 12:55:59 Test Item Value Reference Range Interpretation Comments Activated Clotting Time 167 sec : 74 -137 seconds, (test code = 3184-9) Baselin e: TESTED AT [address], [address]: Lead Driver/Techni ernestine ID = [id number] for Ba rba, [id number] 12:55:59 Test Item Value Reference Range Interpretation Comments ACTIVATED CLOTTING TIME 167 sec : 74 -137 seconds, (BEAKER) (test code = Baseli ne: TESTED AT [facility]) [address], [address]: Lead Driver/Techni ernestine ID = [id number] for Ba rba, [facility] POC-Glucose [id number] 06:22:14 Test Item Value Reference Range Interpretation Comments POC-Glucose Meter (test 128 mg/dL 70-110 H : TE STED AT [facility] code = 1538) [address] [place] [address], [address]: Lead Driver/Techni ernestine ID = [id number] for LUAN THOMAS Lab Interpretation (test Abnormal code = 81954-0) [facility] [id number] 06:22:14 Test Item Value Reference Range Interpretation Comments POC-GLUCOSE METER 128 mg/dL 70-110 H : TESTED [place] [address] (BEAKER) (test code = [facility], 1538) [address]: Lead Driver/Techni ernestine ID = [id number] for AWAIS JIANG A [id number] 00:00:00Ordered by an unspecified provider.[facility] [id number] 13:21:00 Test Item Value Reference Range Interpretation Comments POC glucose (test 91 mg/dL 65-99 Lead Driver N patricia: Ubesie code = 26973-5) Thea ce ID: [id number] able: TM Notified RN [facility] [id number] 13:21:00 Test Item Value Reference Range Interpretation Comments POC glucose (test 91 mg/dL 65-99 Lead Driver N patricia: Ubesie code = 68613-5) Thea ce ID: [id number] able: TMH Notified RN [facility] 12 [id number] 20:54:01 Test Item Value Reference Range Interpretation [...] inversion no longer evident in Lateral leads- [place] [address] [id number] 20:54:01 Test Item Value Reference Range Interpretation [...] inversion no longer evident in Lateral leads- [facility] [id number] 02:38:00 Test Item Value Reference Range Interpretation Comments Urine culture Mixed kendell Specimen isolate (test <=10-3 col/cc InformationSp ecimen code = 16894-3) Source: Urin eSpecimen Site: Clean cat [facility] [id number] 02:38:00 Test Item Value Reference Range Interpretation Comments Urine culture Mixed kendell Specimen isolate (test <=10-3 col/cc [facility] ecimen code = 34633-5) Source: Urin eSpecimen Site: Clean cat [facility] W [id number] 17:52:36EXAMINATION: CT ABDOMEN PELVIS W CONTRAST CLINICAL HISTORY: Abdominal pain acute nonlocalized TECHNIQUE: Multiple axial images of the abdomen and pelvis were obtained following intravenous administration of iodinated contrast. Sagittal and coronal computerized reformatted images were also obtained. CTimaging was performed with iterative reconstruction techniques and/or automated exposure control to reduce radiation dose. COMPARISON: MRI February 11, 2023, CT February 10, 2023 FINDINGS: Marked four-chamber cardiomegaly. Moderate right pleural effusion. Liver is normal in size with nodular contour. Distended hepatic veins and IVC with reflux of contrast consistent with right heart failure and passive congestion. Cholecystectomy. Atrophic pancreas. Spleen is normal in size. Mild cortical atrophy of the kidneys. No stones or hydronephrosis. No adrenal mass. No bowel obstruction. Diverticulosis in the sigmoid colon with moderate thickening at the mid sigmoid, unchanged from January 31, 2023. Small pelvic free fluid is stable. No fluid collection. No free air. Moderately enlarged prostate. Bladder is mildly distended and thickened, stable. Small bladder diverticuli. Diffuse aortoiliac calcifications. No aneurysm. Small umbilical hernia containing fat. Stable marked T12 compression deformity. IMPRESSION: 1.Stable exam. 2.Sigmoid diverticulosis with persistent thickening, diverticulitis not excluded. No abscess. Stable small free fluid. 3.Stable bladder thickening may be chronic in setting of BPH and outlet obstruction. Cystitis not excluded. 4.Nodular hepatic contour suggesting cirrhosis. Chronic congestive hepatopathy and cardiac cirrhosis is possible. 5.Other stable/chronic findings as noted. [id number] [facility] Ab[facility] Wo [id number] 05:56:08EXAMINATION: MRI ABDOMEN W WO CONTRAST CLINICAL HISTORY: liver protocol TECHNIQUE: Multiplanar multisequence MR images of the abdomen were obtained pre- and post dynamic intravenous administration of Gadolinium. COMPARISON: CT, 01/31/2023 FINDINGS: 1.Moderate degree of motion artifacts. 2.Liver is nodular with caudate enlargement, consistent with cirrhosis. No suspicious liver mass.. Normal portal and hepatic veins. 3.Status post cholecystectomy. No biliary dilatation noted. Pancreas, adrenals, spleenand left kidney are unremarkable. Tiny right renal cyst. 4.Small amount of ascites. Right effusion. No regional lymphadenopathy. Intact osseous structures. 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 2.Ascites and right effusion. [facility]WLMethod[facility] HospitalUS Abdominal [id number] 18:55:21EXAMINATION: US ABDOMINAL LIMITED CLINICAL HISTORY: ASCITES COMPARISON: None. Impression: No significant intraperitoneal fluid noted in any of the quadrants of the abdomen. TW-[id number] HospitalCT Abdomen Pelvis Wo [id number] 00:58:10 CT ABDOMEN PELVIS WO CONTRAST CLINICAL INDICATION: abd pain and distension TECHNIQUE: Multidetector CT of the abdomen and pelvis was performed without intravenous contrast with multiplanar reconstructions. CT imaging was performed with iterative reconstruction technique and/or automated exposure control to reduce radiation dose. COMPARISON: 01/31/2023. FINDINGS:The lack of intravenous contrast partially limits evaluation. LUNG BASES: Cardiomegaly. Small right pleural effusion with adjacent atelectasis.LIVER: Nodular contour.BILIARY: No radiopaque gallstones. No biliary dilatation.PANCREAS: No inflammatory changes.SPLEEN: Normal.ADRENALS: Normal. KIDNEYS: No hydronephrosis. No renal stone.GI: No bowel obstruction. No evidence of acute appendicitis. Colonic diverticulosis without diverticulitis.PERITONEUM: Small volume ascites. Similar granulomas in the mesentery. No free air.VASCULAR: No aortic aneurysm.LYMPH NODES: No enlarged lymph nodes in the abdomen or pelvis.PELVIC ORGANS: Similar bladder wall thickening with small diverticula.MUSCULOSKELETAL: No destructive osseous lesion. Ventral soft tissue stranding. Small fat-containing ventral hernia. Chronic T12 fracture. IMPRESSION:1.No acute abnormality.2.Small volume ascites.3.Nodular hepatic contour likely represents chronic hepatocellular liver disease/cirrhotic changes.4.Moderate right pleural effusion.5.Nonspecific bladder wall thickening, may be secondary to cystitis or detrusor muscle hypertrophy. 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 Previous ECG: Previous ECG: UnavailableInterpretat ion: Interpretation: abnormal Rate: ECG rate: 89 ECG rate assessment: normal Rhythm: Rhythm: atrial fibrillation Ectopy: Ectopy: none QRS: QRS axis: Normal QRS intervals: NormalConduction: Conduction: abnormal Abnormal conduction: incomplete LBBB ST segments: ST segments: NormalT waves: T waves: normal Lab Interpretation Abnormal (test code = 65340-4) [facility] ED Preliminary Interpretation - Not an [id number] 23:00:55 Test Item Value Reference Range Interpretation Comments JOAQUIN (test code = JOAQUIN) Chapin Peraza MD 02/13/2023 1:38 [facility] Preliminary Interpretation - Not an Order Performed by: Chapin Peraza MDAuthorized by: Chapin Peraza MD ECG reviewed by ED Physician in the absence of a tinning machine 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 IMPRESSION: Right chest: Right-sided pleural effusion measures 735ml. There are no septations orloculations Left chest: Left-sided pleural effusion measures 105ml. There are no septations or loculationsChrist[facility]
[2023-06-23] MEDS ORDERED: CEFTRIAXONE 1000 MG/VIAL ONE (08:30)
[2023-06-23] MEDS ORDERED: METHYLPREDNISOLONE 125 MG INJ ONE (08:30)
[2023-06-23] MEDS ORDERED: NA CHLORIDE 0.9% 1,000 ML ONE (08:31)
[2023-06-23] MEDS ORDERED: LEVALBUTEROL 1.25 MG/3 ML NEB ONE (08:31)
[2023-06-23] MEDS ORDERED: FAMOTIDINE 20 MG/2 ML VIAL IV ONE (08:31)
[2023-06-23] MEDS ORDERED: IPRATROPIUM BROM 0.5MG/2.5ML ONE (08:31)
[2023-06-23] MEDS ORDERED: NA CHLORIDE 0.9% 50 ML ONE (08:31)
[2023-06-23 08:34] LABS: Absolute Lymphocytes (CBC) 1.2 K/uL (0.7-4.9); Hematocrit 32.5 % (39.6-49.0); MPV 7.1 fL (7.6-11.3); Platelets 184 thou/uL (152-406); RBC Red Blood Cell Count 3.91 M/uL (4.33-5.43)
[2023-06-23 08:50] LABS: Protime INR 1.65
--- NOTE | 2023-06-23 09:16 | RAD REPORT ---
EXAM DESCRIPTION: RADChest Single View06/23/2023 8:55 am CLINICAL HISTORY: Cough;COPD COMPARISON: Chest Pa And Lat (2 Views) dated 05/27/2023; Chest Single View dated 05/04/2023; Chest Si ngle View dated 05/03/2023; Chest Single View dated 05/02/2023 TECHNIQUE: Portable AP view of the chest. FINDINGS: Stable right basilar consolidative opacity, in part relates to a layering pleural effusion component. No pneumothorax or left-sided effusion. The cardiomediastinal contours are unchanged, ag ain with marked cardiomegaly. IMPRESSION: Stable findings including marked cardiomegaly and right basilar airspace opacification w ith a component of pleural effusion.
[2023-06-23 09:25] LABS: Albumin 3.5 g/dL (3.4-5.0); Bilirubin Direct 0.3 mg/dL (0-0.2); Bilirubin Indirect, Calculated 0.3 mg/dL (0.2-0.8); Bilirubin Total 0.6 mg/dL (0.2-1.0); Magnesium 1.8 mg/dL (1.6-2.4); Potassium 3.8 mEq/L (3.5-5.1); Protein, Total 7.6 g/dL (6.4-8.2); Troponin High Sensitivity 19.8 pg/mL (<58.9)
[2023-06-23 09:51] LABS: SARS-COV-2 RT PCR NEGATIVE (NEGATIVE)
--- NOTE | 2023-06-23 09:51 | RAD REPORT ---
EXAM DESCRIPTION: CT - Chest Abd Pelvis Wo Con - 06/23/2023 9:01 am CLINICAL HISTORY: Cough;COPD. Abdominal pain COMPARISON: Thorax W/ Con dated 03/26/2023; CTANGIO CHEST FOR PE dated 04/20/2014; Ct Skull/Thigh date d 05/30/2023 TECHNIQUE: Thin axial CT images of the chest, abdomen, and pelvis, performed without IV contrast. Mu ltiplanar reformats were generated and reviewed. All CT scans are performed using dose optimization technique as appropriate and may include automated exposure control or mA/KV adjustment according to patient size. FINDINGS: Adjacent solid nodules in the peripheral upper segment left lower lobe, largest measuring up to 9 millimeter, seen on axial images 36 and 37 are grossly stable. These did not correspond to ab normal hypermetabolic activity on the recent PET-CT. Moderate to large right pleural effusion, progre ssed since the prior exam, now with near complete atelectasis of the right lower lobe. Small multifoc al ground-glass opacities in the lower aspects of the left upper lobe including lingular segment.No p leural or pericardial effusion.No intrathoracic adenopathy. Marked cardiomegaly. Mild pericardial effusion, stable. The liver, spleen, pancreas, adrenal glands and kidneys are within normal limits. Gallbladder was chapman rgically removed. No bowel obstruction, free air, or abscess. Mild free ascites, stable. Colonic diverticulosis. Superi myrna directed bladder diverticulum appears stable. No pathologic lymphadenopathy in the abdomen or p monae. No worrisome osseous finding. Marked T12 central wedge compression deformity, stable IMPRESSION: Moderate to large right pleural effusion is progressive in appearance since the prior PE T-CT, now with near complete atelectasis of the right lower lobe. New small ground-glass opacities in the left upper lobe probably reflect early pneumonia. Other stable findings including adjacent solid left lower lobe nodules, mild ascites cauda cardiomega ly with mild pericardial effusion, in colonic diverticulosis.
--- NOTE | 2023-06-23 10:30 | ER ---
Nurse's Notes [facility] Name: Juan Nelson Age: 78 yrs Sex: Male : 1945 Arrival Date: 06/23/2023 Time: 07:44 Bed 8 Private MD: Raymundo Marie Diagnosis: Other cirrhosis of liver;Other ascites;Pneumonia due to other specified bacteria-left upper lobe;Cardiomegaly;Pleural condition, unspecified;Pleural effusion in other conditions classified elsewhere-large right ;COPD/ Chronic obstructive pulmonary disease with (acute) exacerbation Presentation: 06/23 07:54 Chief complaint: Patient states: Abdominal pain for 3 days with bloating. + SOB, no ll1 fever. Coronavirus screen: Vaccine status: Patient reports receiving the 2nd dose of the covid vaccine. Client denies travel out of the [place] in the last 14 days. At this time, the client does not indicate any symptoms associated with coronavirus-19. Ebola Screen: Patient denies travel to an Ebola-affected area in the 21 days before illness onset. Initial Sepsis Screen: Does the patient meet any 2 criteria? No. Patient's initial sepsis screen is negative. Does the patient have a suspected source of infection? Yes: Acute abdominal pain. Risk Assessment: Do you want to hurt yourself or someone else? Patient reports no desire to harm self or others. Onset of symptoms was June 21, 2023. 07:54 Acuity: KRISTEL 3 ll1 07:54 Method Of Arrival: Ambulatory ll1 Triage Assessment: 07:57 General: Appears uncomfortable, Behavior is calm, cooperative, appropriate for age. ll1 Pain: Complains of pain in abdomen Pain currently is 10 out of 10 on a pain scale. Quality of pain is described as aching, pressure. Respiratory: Reports shortness of breath Onset: The symptoms/episode began/occurred 3 days, the patient has moderate shortness of breath. GI: Reports lower abdominal pain, upper abdominal pain, bloating. Historical: - Allergies: 07:54 No Known Drug Allergies; ll1 - Home Meds: 10:14 Advair Diskus Inhl [Active]; atorvastatin 10 mg Oral tab 1 tab once daily [Active]; ll1 carvedilol 25 mg Oral tab 1 tab 2 times per day [Active]; cetirizine 5 mg Oral tablet daily [Active]; citalopram 10 mg tab 1 tab once daily [Active]; levothyroxine 112 mcg cap 1 cap once daily [Active]; metformin 1 Oral tab 1 tab 2 times per day [Active]; omeprazole 20 mg Oral cpDR 1 cap once daily [Active]; pantoprazole 40 mg Oral TbEC 1 tab once daily [Active]; furosemide 40 mg Oral tab 1 tab once daily [Active]; glipizide 10 mg Oral tab 1 tab 2 times per day [Active]; spironolactone 25 mg Oral tab 1 tab once daily [Active]; Xarelto 20 mg Oral tab 1 tab once daily [Active]; - PMHx: 07:54 Diabetes - NIDDM; Hypothyroidism; Hypertensive disorder; chemotherapy; ascites; COPD; ll1 throat cancer; AFIB; - PSHx: 07:54 Cholecystectomy; ll1 - Immunization history:: Adult Immunizations up to date. - Social history:: Smoking status: Patient/guardian denies using tobacco. Screenin:21 [facility] ED Fall Risk Assessment (Adult) History of falling in the last 3 months, ph including since admission No falls in past 3 months (0 pts) Confusion or Disorientation No (0 pts) Intoxicated or Sedated No (0 pts) Impaired Gait No (0 pts) Mobility Assist Device Used No (0 pt) Altered Elimination No (0 pt) Score/Fall Risk Level 0 - 2 = Low Risk Oriented to surroundings, Maintained a safe environment, Provided non-skid footwear, Hourly rounding (assess needs \T\ fall precautionary measures) done. Abuse screen: Denies threats or abuse. Denies injuries from another. Nutritional screening: No deficits noted. Tuberculosis screening: No symptoms or risk factors identified. Assessment: 09:20 General: Appears in no apparent distress. Behavior is calm, cooperative, appropriate ph for age, Denies fever, feeling ill. Pain: Complains of pain in abdomen. Neuro: Level of Consciousness is awake, alert, obeys commands, Oriented to person, place, time, situation. Cardiovascular: Reports shortness of breath, Denies chest pain, Capillary refill < 3 seconds in bilateral fingers Rhythm is irregular. Respiratory: Airway is patent Respiratory effort is even, unlabored, Respiratory pattern is regular, symmetrical. GI: Abdomen is noted to have ascites, bruised on epigastric area. Derm: Skin is pink, warm \T\ dry. Musculoskeletal: Circulation, motion, and sensation intact. Range of motion: intact in all extremities. Vital Signs: 07:54 BP 133 / 70; Pulse 69; Resp 18; Temp 98.7; Pulse Ox 98% on R/A; Weight 81.65 kg; Height ll1 5 ft. 6 in. ; Pain 7/10; 09:20 BP 110 / 64; Pulse 65; Resp 18; Pulse Ox 100% on Nebulizer Mask; ph 12:29 BP 146 / 95; Pulse 67; Resp 18; Temp 98; Pulse Ox 99% on R/A; ph 07:54 Body Mass Index 29.05 (81.65 kg, 167.64 cm) ll1 07:54 Pain Scale: Adult ll1 Vitals: 09:20 Cardiac Rhythm Assessment Irregular. ph ED Course: 07:45 Patient arrived in ED. as 07:45 Raymundo Marie DO is Private Physician. as 07:45 Geoff Patel MD is Attending Physician. daniel 07:54 Arm band placed on Patient placed in an exam room, on a stretcher. ll1 07:56 Triage completed. ll1 08:01 Inserted saline lock: 20 gauge in right antecubital area, using aseptic technique. ls5 Blood collected. 08:03 Bisi Diego, RN is Primary Nurse. ph 08:57 XRAY Chest (1 view) In Process Unspecified. EDMS 09:03 CT Chest Abdomen Pelvis W/O Contrast In Process Unspecified. EDMS 09:22 Patient has correct armband on for positive identification. Bed in low position. Call ph light in reach. oyster planter on. Pulse ox on. NIBP on. Door closed. Noise minimized. 10:26 Michael Stein MD is Hospitalizing Provider. daniel 19:29 Primary Nurse role handed off by Bisi Diego, MELVIN bp 19:29 Venancio Matias, MELVIN is Primary Nurse. bp 20:14 No provider procedures requiring assistance completed. Patient admitted, IV remains in bp place. Administered Medications: 09:19 Drug: NS 0.9% IV 1000 ml IV at 125 ml/hr continuous Route: IV; Rate: 125 ml/hr; Site: ph right antecubital; 20:15 Follow up: IV Status: Completed infusion; IV Intake: 1000ml bp 09:19 Drug: Famotidine IVP 20 mg IVP once; dilute with 10 mL 0.9% NaCl; give over 2 minutes ph Route: IVP; Site: right antecubital; 20:15 Follow up: Response: No adverse reaction bp 09:19 Drug: MethylPrednisoLONE IVP 125 mg IVP once Route: IVP; Site: right antecubital; ph 20:15 Follow up: Response: No adverse reaction bp 09:19 Drug: Levalbuterol Inhalation 2.5 mg Inhalation once Route: Inhalation; ph 09:19 Drug: Ipratropium Inhalation Aerosol 0.5 mg Inhalation once Route: Inhalation; ph 09:19 Drug: Rocephin IV 1 grams IV at per protocol once; Given slow IV push per pharmacy ph instructions Route: IV; Rate: per protocol; Site: right antecubital; 20:14 Follow up: IV Status: Completed infusion; IV Intake: 100ml bp 13:13 Drug: Zithromax IVPB 500 mg IVPB once over 1 hrs; mix in 250 mL NS Route: IVPB; Infused ph Over: 1 hrs; Site: right antecubital; 20:14 Follow up: IV Status: Completed infusion; IV Intake: 250ml bp Medication: 09:22 VIS not applicable for this client. ph Intake: 20:14 IV: 250ml; Total: 250ml. bp 20:14 IV: 100ml; Total: 350ml. bp 20:15 IV: 1000ml; Total: 1350ml. bp Outcome: 10:29 Decision to Hospitalize by Provider. daniel 20:14 Admitted to Med/surg accompanied by tech, via stretcher, room 212, with chart, Report bp called to NII CHARLES 20:14 Condition: stable 20:14 Instructed on the need for admit, 21:39 Patient left the ED. bp Signatures: Dispatcher [employer] EDMS Geoff Patel MD MD cha Martinez, Amelia as Hall, Patricia, RN RN ph Peltier, Brian, RN RN bp Lewis, Lynsay, RN RN ll1 Pratik Nuñez ls5
--- NOTE | 2023-06-23 10:30 | EDPHYS ---
Physician Documentation [facility] Name: Juan Nelson Age: 78 yrs Sex: Male : 1945 Arrival Date: 06/23/2023 Time: 07:44 Bed 8 Private MD: Raymundo Marie ED Physician Geoff Patel HPI: 06/23 08:41 This 78 yrs old Male presents to ER via Ambulatory with complaints of daniel Shortness Of Breath, Abdominal Pain. 08:41 The patient has shortness of breath at rest, with light activity. Onset: The daniel symptoms/episode began/occurred 3 day(s) ago. Duration: The symptoms are continuous, and are steadily getting worse. The patient's shortness of breath is aggravated by nothing, is alleviated by nothing. Associated signs and symptoms: Pertinent positives: non-productive cough. Historical: - Allergies: 07:54 No Known Drug Allergies; ll1 - Home Meds: 10:14 Advair Diskus Inhl [Active]; atorvastatin 10 mg Oral tab 1 tab once daily [Active]; ll1 carvedilol 25 mg Oral tab 1 tab 2 times per day [Active]; cetirizine 5 mg Oral tablet daily [Active]; citalopram 10 mg tab 1 tab once daily [Active]; levothyroxine 112 mcg cap 1 cap once daily [Active]; metformin 1 Oral tab 1 tab 2 times per day [Active]; omeprazole 20 mg Oral cpDR 1 cap once daily [Active]; pantoprazole 40 mg Oral TbEC 1 tab once daily [Active]; furosemide 40 mg Oral tab 1 tab once daily [Active]; glipizide 10 mg Oral tab 1 tab 2 times per day [Active]; spironolactone 25 mg Oral tab 1 tab once daily [Active]; Xarelto 20 mg Oral tab 1 tab once daily [Active]; - PMHx: 07:54 Diabetes - NIDDM; Hypothyroidism; Hypertensive disorder; chemotherapy; ascites; COPD; ll1 throat cancer; AFIB; - PSHx: 07:54 Cholecystectomy; ll1 - Immunization history:: Adult Immunizations up to date. - Social history:: Smoking status: Patient/guardian denies using tobacco. ROS: 08:42 Constitutional: Negative for fever, chills, and weight loss, Eyes: Negative for injury, daniel pain, redness, and discharge, ENT: Negative for injury, pain, and discharge, Neck: Negative for injury, pain, and swelling, Cardiovascular: Negative for chest pain, palpitations, and edema, Back: Negative for injury and pain, : Negative for injury, bleeding, discharge, and swelling, MS/Extremity: Negative for injury and deformity, Skin: Negative for injury, rash, and discoloration, Neuro: Negative for headache, weakness, numbness, tingling, and seizure, Psych: Negative for depression, anxiety, suicide ideation, homicidal ideation, and hallucinations, Allergy/Immunology: Negative for hives, rash, and allergies, Endocrine: Negative for neck swelling, polydipsia, polyuria, polyphagia, and marked weight changes, Hematologic/Lymphatic: Negative for swollen nodes, abnormal bleeding, and unusual bruising, 08:42 Respiratory: Positive for cough, shortness of breath, at rest. 08:42 Abdomen/GI: Positive for abdominal distension, Exam: 08:42 Constitutional: This is a well developed, well nourished patient who is awake, alert, daniel and in no acute distress. Head/Face: Normocephalic, atraumatic. Eyes: Pupils equal round and reactive to light, extra-ocular motions intact. Lids and lashes normal. Conjunctiva and sclera are non-icteric and not injected. Cornea within normal limits. Periorbital areas with no swelling, redness, or edema. ENT: Nares patent. No nasal discharge, no septal abnormalities noted. Tympanic membranes are normal and external auditory canals are clear. Oropharynx with no redness, swelling, or masses, exudates, or evidence of obstruction, uvula midline. Mucous membranes moist. Neck: Trachea midline, no thyromegaly or masses palpated, and no cervical lymphadenopathy. Supple, full range of motion without nuchal rigidity, or vertebral point tenderness. No Meningismus. Chest/axilla: Normal chest wall appearance and motion. Nontender with no deformity. No lesions are appreciated. Cardiovascular: Regular rate and rhythm with a normal S1 and S2. No gallops, murmurs, or rubs. Normal PMI, no JVD. No pulse deficits. Abdomen/GI: Soft, non-tender, with normal bowel sounds. No distension or tympany. No guarding or rebound. No evidence of tenderness throughout. Back: No spinal tenderness. No costovertebral tenderness. Full range of motion. Male : Normal genitalia with no discharge or lesions. Skin: Warm, dry with normal turgor. Normal color with no rashes, no lesions, and no evidence of cellulitis. MS/ Extremity: Pulses equal, no cyanosis. Neurovascular intact. Full, normal range of motion. Neuro: Awake and alert, GCS 15, oriented to person, place, time, and situation. Cranial nerves II-XII grossly intact. Motor strength 5/5 in all extremities. Sensory grossly intact. Cerebellar exam normal. Normal gait. Psych: Awake, alert, with orientation to person, place and time. Behavior, mood, and affect are within normal limits. 08:42 ECG was reviewed by the Attending Physician. 08:42 Respiratory: the patient does not display signs of respiratory distress, Respirations: labored breathing, that is mild, Breath sounds: bronchial sounds, decreased breath sounds, that are mild, are located in both bases, rhonchi, that are mild, are scattered, stridor, is not appreciated, 08:51 Abdomen/GI: Inspection: distension, Bowel sounds: normal, Palpation: abdomen is soft daniel and non-tender, Liver: no appreciated palpable abnormalities, Hernia: not appreciated, Vital Signs: 07:54 BP 133 / 70; Pulse 69; Resp 18; Temp 98.7; Pulse Ox 98% on R/A; Weight 81.65 kg; Height ll1 5 ft. 6 in. ; Pain 7/10; 09:20 BP 110 / 64; Pulse 65; Resp 18; Pulse Ox 100% on Nebulizer Mask; ph 12:29 BP 146 / 95; Pulse 67; Resp 18; Temp 98; Pulse Ox 99% on R/A; ph 07:54 Body Mass Index 29.05 (81.65 kg, 167.64 cm) ll1 07:54 Pain Scale: Adult ll1 MDM: 07:46 Patient medically screened. daniel 08:52 Differential diagnosis: Anemia Bronchitis CHF exacerbation, Chronic Obstructive daniel Pulmonary Disease pneumonia, Pneumothorax reactive airway disease, Sepsis bowel obstruction, diverticulitis, gastritis, Hepatitis, Mesenteric ischemia or infarction, non-specific abd pain, pancreatitis, Peptic Ulcer Disease, Peritonitis, Pyelonephritis, urinary tract infection. Antibiotic administration: Rocephin and Zithromax given. Immunization status: Pneumococcal vaccine: within last 5 years. Influenza vaccine: within last 5 years. Data reviewed: vital signs, nurses notes, lab test result(s), EKG, radiologic studies, CT scan, plain films. Consideration of Admission/Observation Escalation of care including admission/observation considered. I considered the following discharge prescriptions or medication management in the emergency department Medications were administered in the Emergency Department. See MAR. Independent interpretation of the following test(s) in the Emergency Department EKG: See my EKG interpretation above. 06/23 08:10 Order name: Basic Metabolic Panel; Complete Time: 09:58 [facility] 06/23 08:10 Order name: CBC with Diff; Complete Time: 09:58 [facility] 06/23 08:10 Order name: LFT's; Complete Time: 09:58 [facility] 06/23 08:10 Order name: Magnesium; Complete Time: 09:58 [facility] 06/23 08:10 Order name: NT PRO-BNP; Complete Time: 09:58 [facility] 06/23 08:10 Order name: PT-INR; Complete Time: 09:58 [facility] 06/23 08:10 Order name: Troponin HS; Complete Time: 09:58 [facility] 06/23 08:10 Order name: Lipase; Complete Time: 09:58 [facility] 06/23 08:10 Order name: Urinalysis w/ reflexes 06/23 08:10 Order name: Blood Culture Adult (2) 06/23 08:10 Order name: Lactate w/ 2H reflex if indic.; Complete Time: 09:58 [facility] 06/23 08:10 Order name: AMMONIA; Complete Time: 09:58 [facility] 06/23 08:13 Order name: SARS RAPID 06/23 08:13 Order name: Flu [facility] 06/23 08:33 Order name: COVID-19/FLU A+B; Complete Time: 09:58 ph 06/23 08:10 Order name: XRAY Chest (1 view); Complete Time: 09:58 [facility] 06/23 08:10 Order name: CT Chest Abdomen Pelvis W/O Contrast; Complete Time: 09:58 [facility] 06/23 08:10 Order name: EKG; Complete Time: 08:11 daniel 06/23 08:10 Order name: Cardiac monitoring; Complete Time: 08:33 daniel 06/23 08:10 Order name: EKG - Nurse/Tech; Complete Time: 08:33 daniel 06/23 08:10 Order name: IV Saline Lock; Complete Time: :33 [facility] 06/23 08:10 Order name: Labs collected and sent; Complete Time: [facility] 06/23 08:10 Order name: O2 Per Protocol; Complete Time: [facility] 06/23 08:10 Order name: O2 Sat Monitoring; Complete Time: : [facility] EC:42 Rate is 64 beats/min. Rhythm is irregular. QRS [place] is Normal. DE interval is normal. daniel QRS interval is normal. QT interval is normal. No Q waves. T waves are Normal. No ST changes noted. Clinical impression: Abnormal EKG without significant change, Atrial Fibrillation, and No evidence of ischemia. Interpreted by me. Reviewed by me. Administered Medications: 09:19 Drug: NS 0.9% IV 1000 ml IV at 125 ml/hr continuous Route: IV; Rate: 125 ml/hr; Site: ph right antecubital; 20:15 Follow up: IV Status: Completed infusion; IV Intake: 1000ml bp 09:19 Drug: Famotidine IVP 20 mg IVP once; dilute with 10 mL 0.9% NaCl; give over 2 minutes ph Route: IVP; Site: right antecubital; 20:15 Follow up: Response: No adverse reaction bp 09:19 Drug: MethylPrednisoLONE IVP 125 mg IVP once Route: IVP; Site: right antecubital; ph 20:15 Follow up: Response: No adverse reaction bp 09:19 Drug: Levalbuterol Inhalation 2.5 mg Inhalation once Route: Inhalation; ph 09:19 Drug: Ipratropium Inhalation Aerosol 0.5 mg Inhalation once Route: Inhalation; ph 09:19 Drug: Rocephin IV 1 grams IV at per protocol once; Given slow IV push per pharmacy ph instructions Route: IV; Rate: per protocol; Site: right antecubital; 20:14 Follow up: IV Status: Completed infusion; IV Intake: 100ml bp 13:13 Drug: Zithromax IVPB 500 mg IVPB once over 1 hrs; mix in 250 mL NS Route: IVPB; Infused ph Over: 1 hrs; Site: right antecubital; 20:14 Follow up: IV Status: Completed infusion; IV Intake: 250ml bp Disposition Summary: 06/23/23 10:29 Hospitalization Ordered Notes: Hospitalization Status: Inpatient Admission daniel Provider: Stein, Michael daniel Condition: Fair daniel Problem: an ongoing problem daniel Symptoms: have worsened daniel Bed/Room Type: Standard daniel Location: Telemetry/MedSurg (observation)(06/23/23 19:44) rv1 Room Assignment: 212(06/23/23 19:44) rv1 Diagnosis - Other cirrhosis of liver daniel - Other ascites daniel - Pneumonia due to other specified bacteria - left upper lobe daniel - Cardiomegaly daniel - Pleural condition, unspecified daniel - Pleural effusion in other conditions classified elsewhere - large right daniel - COPD/ Chronic obstructive pulmonary disease with (acute) exacerbation daniel Forms: - Medication Reconciliation Form daniel - SBAR form daniel - Leadership Thank You Letter daniel Signatures: Dispatcher [employer] EDGeoff Cummings MD MD cha Pinkerton, Shawna sp Hall, Patricia, RN RN Lazara Ferraro RN RN ll1 Sherrie Dunlap rv1 Venancio Matias RN bp Corrections: (The following items were deleted from the chart) 11:35 10:29 Telemetry/MedSurg (Inpatient) daniel sp 11:35 10:29 daniel sp 19:44 11:35 [facility] ER HOLD sp rv1 19:44 11:35 ERHOLD- sp rv1
[2023-06-23] MEDS ORDERED: ONDANSETRON 4 MG/2 ML VIAL IV PRN (12:44)
[2023-06-23] MEDS ORDERED: POLYETHYL GLY 3350 17 GM/DOSE PO PRN (12:44)
[2023-06-23] MEDS ORDERED: HYDROCODONE/APAP 7.5/325 MG TAB PO PRN (12:44)
[2023-06-23] MEDS ORDERED: NA CHLORIDE 0.9% 250 ML ONE (13:10)
[2023-06-23] MEDS ORDERED: AZITHROMYCIN 500 MG INJ IVPB ONE (13:10)
[2023-06-23 13:19] LABS: Specific Gravity 1.009 (1.005-1.030); Urine Bacteria None Seen /HPF (<20); Urine Bilirubin NEGATIVE (Negative); Urine Blood Negative (Negative); Urine Clarity Clear (Clear); Urine Color Light-Yellow (Yellow); Urine Glucose NEGATIVE (Negative); Urine Protein NEGATIVE (Negative); Urine RBC <5 /HPF (None Seen); Urine Urobilinogen Normal (Normal); Urine pH 6.5 (5.0-7.0)
--- NOTE | 2023-06-23 14:01 | P.HP ---
Certification for Inpatient Patient admitted to: Inpatient With expected LOS: >2 Midnights Patient will require the following post-hospital care: None Practitioner: I am a practitioner with admitting privileges, knowledge of patient current condition, hospital course, and medical plan of care. Services: Services provided to patient in accordance with Admission requirements found in Title 42 Section 412.3 of the Code of Federal Regulations Patient History Date of Service: 06/23/23 Primary Care Provider: Dr. Marie Reason for admission: Dyspnea, pleural effusion History of Present Illness: 78-year-old male with history of alcoholic cirrhosis of the liver, chronic systolic congestive heart failure, [id number] diabetes, atrial fibrillation on chronic anticoagulation, hypertension, hypothyroidism, COPD and TRICIA presents to the emergency department for chief complaint of abdominal pain, shortness of breath. He reports the symptoms are ongoing for the last 2 to 3 days and worsening. He was admitted to the hospital for similar complaints in early April and had a thoracentesis performed as well as diuresis with improvement in his symptoms. He was evaluated in the emergency department labs are significant for hemoglobin 10.6 medic at 32.5 platelet count 184 INR 1.65 BNP 2841 UA not concerning for urinary tract infection COVID and influenza test negative chest x-ray showed stable findings including marked cardiomegaly and right basal airspace opacification with a component of pleural effusion. CT of the chest abdomen pelvis without contrast was performed which revealed moderate to large right pleural effusion is progressive in appearance since prior PET/CT, now with near complete atelectasis of the right lower lobe. New small groundglass opacities in the left upper lobe probably reflect early pneumonia. Most recent echocardiogram 05/03/2023 with EF of 30 to 35%, severe pulmonary hypertension, severe diastolic dysfunction, moderate to severe tricuspid regurgitation Patient denies any fever, chills, white blood cell count within normal at this time. Patient be admitted for further evaluation and management of abdominal pain, dyspnea related to pleural effusion. Allergies No Known Drug Allergies Allergy (Verified 05/02/23 08:11) Unknown Home Medications: Carvedilol [Coreg] 1 tab PO BIDWM 11/16/21 Cetirizine HCl [Zyrtec*] 1 tab PO DAILY 11/16/21 Levothyroxine Sodium 1 tab PO [id number] 11/16/21 Metformin HCl 1 tab PO BID 04/21/22 Omeprazole 1 tab PO DAILY 11/16/21 Spironolactone 1 tab PO DAILY 11/16/21 Atorvastatin Calcium [Lipitor*] 10 mg PO BEDTIME 01/22/23 Citalopram [Celexa*] 10 mg PO DAILY 01/22/23 Fluticasone/Salmeterol [Advair 250-50 Diskus] 2 inh IH DAILY 01/22/23 Hydrocodone/Acetaminophen [Hydrocodon-Acetamin 7.5-325/15] 15 ml PO BID PRN 01/22/23 Pantoprazole [Protonix Tab*] 40 mg PO DAILY 01/22/23 glipiZIDE [Glipizide] 10 mg PO BID 01/22/23 Apixaban [Eliquis] 5 mg PO BID 90 Days #180 tab 01/30/23 Furosemide [Lasix*] 40 mg PO DAILY 30 Days #30 tab 01/30/23 Losartan/Hydrochlorothiazide [Losartan-Hctz 100-25 mg Tab] 25 mg PO DAILY 05/02/23 - Past Medical/Surgical History Diabetic: Yes -: Hypothyroidism -: DM-NIDDM -: AFIB-on chronic anticoagulation -: HTN -: COPD -: ascites -: Throat cancer -: Chemo/radiation -: Cirrhosis of liver-alcohol -: Cholecystectomy -: Rt elbow sx Psychosocial/ Personal History: Lives at home with his spouse - Family History Mother -: Cancer - Social History Alcohol use: No CD- Drugs: No Caffeine use: Yes Review of Systems 10-point ROS is otherwise unremarkable Respiratory: Shortness of Breath, SOB with Excertion Gastrointestinal: Abdominal Pain Physical Examination - Physical Exam General: Alert, In no apparent distress, Oriented x3, Obese HEENT: Atraumatic, PERRLA, EOMI Neck: Supple Respiratory: Diminished, Crackles/rales Cardiovascular: Irregular heart rate/rhythm Gastrointestinal: Normal bowel sounds Musculoskeletal: No tenderness Integumentary: No rashes, Other (Bruising to epigastrum S/P loop recorder insertion) Neurological: Normal gait, Normal speech, Normal strength at 5/5 x4 extr, Normal tone, Normal affect - Studies Laboratory Data (last 24 hrs) 06/23/23 06/23/23 06/23/23 08:15 08:15 08:15 WBC 6.10 Hgb 10.6 L Hct 32.5 L Plt Count 184 PT 18.2 H INR 1.65 Sodium 137 Potassium 3.8 BUN 13 Creatinine 1.12 Glucose 94 Magnesium 1.8 Total Bilirubin 0.6 AST 10 L ALT 11 L Alkaline Phosphatase 66 Lipase 12 L Assessment and Plan - Plan Assessment: Dyspnea secondary to right pleural effusion Acute on chronic systolic congestive heart failure Abdominal pain-alcoholic cirrhosis of liver with mild ascites Atrial fibrillation on chronic anticoagulation Diabetes mellitus type [id number] Hypertension COPD TRICIA Hypothyroidism Plan: Dyspnea secondary to right pleural effusion Acute on chronic systolic congestive heart failure Continue IV diuresis with Lasix 40 mg twice daily, continue spironolactone Pulmonology consult to evaluate right-sided pleural effusion Had thoracentesis in early April with 1.2 L of fluid removed which improved his symptoms at that time Echocardiogram 05/03/2023 with EF of 30 to 35%, severe pulmonary hypertension, severe diastolic dysfunction, moderate to severe tricuspid regurgitation Repeat chest x-ray tomorrow morning Holding Eliquis, switch to therapeutic Lovenox in case of need for thoracentesis Last dose of Eliquis evening of 1125 Hold Lovenox in the morning in case of thoracentesis Abdominal pain-alcoholic cirrhosis of liver with mild ascites CT abdomen negative for acute findings continue diuresis, PRN [place] Possible from ascites-not enough for para Atrial fibrillation on chronic anticoagulation Continue medications once verified Hold Eliquis Monitor on telemetry Diabetes mellitus type [id number]-[id number] ACHS Accu-Chek, sliding scale, On metformin at home Hypothyroidism Hypertension Continue home meds COPD PRN Nebs TRICIA Cpap at night-ordered DVT PPX: Therapeutic Lovenox Code status: Full Discharge Plan: Home Plan to discharge in: 48 Hours - Advance Directives Does patient have a Living Will: No Does patient have a Durable POA for Healthcare: No - Code Status/Comfort Care Code Status Assessed: Yes (Full code) Critical Care: No Time Spent Managing Pts Care (In Minutes): 70
[2023-06-23] MEDS ORDERED: ENOXAPARIN 80 MG/0.8 ML SQ ONE ×2 (17:00→17:52)
[2023-06-23] MEDS: FUROSEMIDE 40 MG/4 ML VIAL IV SCH (17:00)
[2023-06-23] MEDS ORDERED: FUROSEMIDE 40 MG/4 ML VIAL ONE (17:52)
[2023-06-23 18:02] VITALS: BMI 29.0
[2023-06-23] MEDS ORDERED: ENOXAPARIN 80 MG/0.8 ML SQ SCH (21:00)
[2023-06-23] MEDS ORDERED: ATORVASTATIN 10 MG TAB PO SCH (21:00)
[2023-06-23] MEDS: carvediloL 6.25 MG TAB PO SCH (21:41)
[2023-06-23 22:36] VITALS: O2SAT 99
[2023-06-24] MEDS ORDERED: D50W 25 GM/50 ML SYRINGE IV PRN (03:48)
[2023-06-24] MEDS ORDERED: GLUCAGON 1 MG/VIAL IM PRN (03:48)
[2023-06-24] MEDS ORDERED: D10W 125 ML IV PRN (03:56)
[2023-06-24] MEDS ORDERED: PANTOPRAZOLE 40MG TABLET PO SCH (06:30)
[2023-06-24] MEDS ORDERED: LEVOTHYROXINE SOD 0.125 MG TAB PO SCH (06:30)
[2023-06-24 06:35] LABS: Absolute Lymphocytes (CBC) 0.6 K/uL (0.7-4.9); Hematocrit 31.2 % (39.6-49.0); Lymphocytes % 8.5 % (15.3-44.8); MCV 82.9 fL (80-100); MPV 7.6 fL (7.6-11.3); Platelets 178 thou/uL (152-406); RBC Red Blood Cell Count 3.76 M/uL (4.33-5.43)
[2023-06-24 06:40] LABS: Protime INR 1.61
[2023-06-24 06:54] LABS: Albumin 3.4 g/dL (3.4-5.0); Bilirubin Total 0.6 mg/dL (0.2-1.0); Magnesium 1.7 mg/dL (1.6-2.4); Potassium 4.2 mEq/L (3.5-5.1); Protein, Total 7.5 g/dL (6.4-8.2)
[2023-06-24] MEDS: INSULIN REGULAR (HUMAN) 100 UNIT/ML SQ SCH ×2 (07:30→12:11)
[2023-06-24 07:33] LABS: Platelet Estimate ADEQ; White Blood Cell Scan OK (OK)
[2023-06-24 07:34] LABS: Blood Morphology Comment NOT SEEN (NOT SEEN)
--- NOTE | 2023-06-24 07:44 | RAD REPORT ---
EXAM DESCRIPTION: RAD - Chest Single View - 06/24/2023 4:45 am CLINICAL HISTORY: eval pleural effusion Chest pain. COMPARISON: Chest Single View dated 06/23/2023; Chest Pa And Lat (2 Views) dated 05/27/2023; Chest S shubham View dated 05/04/2023; Chest Single View dated 05/03/2023; Chest Abd Pelvis Wo Con dated 06/23/20 23 FINDINGS: Portable technique limits examination quality. Moderate right pleural effusion. The heart is significantly enlarged. Mild interstitial pulmonary last ma.No fracture apparent.
[2023-06-24] MEDS ORDERED: CEFTRIAXONE 2,000 MG in NA CHLORIDE 0.9% 100 ML IV SCH (09:00)
[2023-06-24] MEDS ORDERED: SPIRONOLACTONE 25 MG TABLET PO SCH (09:00)
[2023-06-24] MEDS ORDERED: AMIODARONE HCL 200 MG TAB PO SCH (09:00)
[2023-06-24] MEDS ORDERED: CITALOPRAM 10 MG TABLET PO SCH (09:00)
[2023-06-24] MEDS: FUROSEMIDE 40 MG/4 ML VIAL IV SCH (09:12)
[2023-06-24] MEDS: carvediloL 6.25 MG TAB PO SCH (09:12)
[2023-06-24] MEDS ORDERED: PNEUMOCOCCAL VACCINE 0.5 ML IMVAC ONE (12:00)
--- NOTE | 2023-06-24 12:02 | RAD REPORT ---
EXAM DESCRIPTION: US - Chest - 06/24/2023 10:00 am CLINICAL HISTORY: pleural effusion-last eliquis 06/22 PM dose Right pleural effusion COMPARISON: Chest Single View dated 06/24/2023 FINDINGS: Small volume of right pleural fluid is present. At this time, the amount of fluid is inade quate for thoracentesis drainage.
--- NOTE | 2023-06-24 12:34 | P.CNS ---
Date of Consult: 06/24/23 Reason for Consult: Pleural effusion Primary Care Provider: Dr. Marie Chief Complaint: Dyspnea, pleural effusion History of Present Illness: Patient is 78 years of age with a history of cirrhosis of the liver. With some abdominal discomfort he does have chronic right-sided pleural effusion had thoracentesis before in problem his abdominal discomfort he denies any dyspnea were recently seen by a paint brush maker Allergies No Known Drug Allergies Allergy (Verified 05/02/23 08:11) Unknown Home Medications: Carvedilol [Coreg] 12.5 mg PO BIDWM 11/16/21 Levothyroxine Sodium 125 mcg PO [id number] 11/16/21 Omeprazole 40 mg PO DAILY 11/16/21 Spironolactone 50 mg PO DAILY 11/16/21 Atorvastatin Calcium [Lipitor*] 10 mg PO BEDTIME 01/22/23 Citalopram [Celexa*] 10 mg PO DAILY 01/22/23 Fluticasone/Salmeterol [Advair 250-50 Diskus] 1 puff IH BID 01/22/23 Apixaban [Eliquis] 5 mg PO BID 90 Days #180 tab 01/30/23 Amiodarone HCl [Cordarone*] 200 mg PO DAILY 06/24/23 Furosemide [Lasix] 40 mg PO DAILY 06/24/23 Metformin HCl 1,000 mg PO BID 06/24/23 glipiZIDE [Glipizide] 10 mg PO BID 06/24/23 - Past Medical/Surgical History Diabetic: Yes -: Hypothyroidism -: DM-NIDDM -: AFIB-on chronic anticoagulation -: HTN -: COPD -: ascites -: Throat cancer -: Chemo/radiation -: Cirrhosis of liver-alcohol -: Cholecystectomy -: Rt elbow sx Psychosocial/ Personal History: Lives at home with his spouse - Family History Mother Medical History: Cancer - Social History Smoking Status: Unknown if ever smoked Alcohol use: No CD- Drugs: No Caffeine use: Yes Review of Systems is unable to be obtained Physical Examination Temp Pulse Resp BP Pulse Ox 97.6 F 81 18 119/53 L 94 06/24/23 08:00 06/24/23 08:00 06/24/23 08:00 06/24/23 08:00 06/24/23 08:00 General: Alert, Oriented x3 Respiratory: Diminished (Diminished air entry in the right side) Cardiovascular: No edema, Regular rate/rhythm, Normal S1 S2 Gastrointestinal: Normal bowel sounds, Soft and benign, Distended Musculoskeletal: No clubbing - Problems (1) Pleural effusion Current Visit: Yes Status: Acute Plan: Patient is 78 years of age admitted with abdominal discomfort he has cirrhosis of the liver with right-sided pleural effusion bilateral decubitus show free- flowing fluid on the left side patient's oxygenation is satisfactory he does have sleep apnea compliant with CPAP doubt if thoracentesis is going to be of any help planes of some abdominal discomfort/no evidence of any acute abdominal changes CT scan of the abdomen Moderate to large right pleural effusion is progressive in appearance since the prior PETCT, now with near complete atelectasis of the right lower lobe. New small ground-glass opacities in the left upper lobe probably reflect early pneumonia. Other stable findings including adjacent solid left lower lobe nodules, mild ascites cauda cardiomegaly with mild pericardial effusion, in colonic diverticulosis. Chemistries reviewed mildly anemic patient is afebrile stable for discharge agree with canceling thoracentesis for now
[2023-06-24 12:46] VITALS: BP 149/89; TEMP 97.4
--- NOTE | 2023-06-24 13:06 | RAD REPORT ---
EXAM DESCRIPTION: RAD - Chest Lateral Decubitus - 06/24/2023 11:44 am CLINICAL HISTORY: R pleural effusion COMPARISON: Chest Single View dated 06/24/2023 FINDINGS: There is a small amount of layering right pleural fluid measuring up to 2 cm in maximum de pth. No significant left-sided fluid.
--- NOTE | 2023-06-24 20:10 | P.DS ---
Admission Date: 06/23/23 Discharge Date: 06/25/23 Primary Care Provider: Dr. Marie Disposition: ROUTINE DISCHARGE Discharge Condition: FAIR Reason for Admission: Dyspnea, pleural effusion Hospital Course: Diagnosis: Dyspnea secondary to right pleural effusion Acute on chronic systolic congestive heart failure Abdominal pain-alcoholic cirrhosis of liver with mild ascites Atrial fibrillation on chronic anticoagulation Diabetes mellitus type [id number] Hypertension COPD TRICIA Hypothyroidism Juan Rincon presented to the ED with SOB and abdominal pain on 06/23/23. Previous admission in April for same presentation warranted a thoracentesis. CT chest abdomen pelvis without contrast was performed which showed a "moderate to large right pleural effusion is progressive in appearance since prior PET/CT". He was admitted for diuresis and likely a thoracentesis in the morning. He tolerated IV lasix overnight. Radiology evaluated him with an US chest noting a decrease in fluid which no longer warranting a thoracentesis. Pulmonology evaluated this morning and cleared him for discharge. Home dose of Lasix changed to 80 mg daily for ten days then back to the usual dose of 40 mg daily. Please see a communications project manager in 7-10 days, PCP in 7-10 days, and GI for liver cirrhosis in one month. Juan is afebrile, on RA, ambulating independently, and tolerating a PO diet. He is stable for discharge. Vital Signs/Physical Exam: Temp Pulse Resp BP Pulse Ox 97.4 F 58 18 149/89 H 98 06/24/23 12:00 06/24/23 12:00 06/24/23 12:00 06/24/23 12:00 06/24/23 12:00 Laboratory Data at Discharge: WBC 7.40 thou/uL (4.3-10.9) 06/24/23 05:37 Hgb 10.2 g/dL (13.6-17.9) L 06/24/23 05:37 Hct 31.2 % (39.6-49.0) L 06/24/23 05:37 Plt Count 178 thou/uL (152-406) 06/24/23 05:37 PT 17.7 SECONDS (9.5-12.5) H 06/24/23 05:37 INR 1.61 06/24/23 05:37 Sodium 137 mEq/L (136-145) 06/24/23 05:37 Potassium 4.2 mEq/L (3.5-5.1) 06/24/23 05:37 BUN 19 mg/dL (7-18) H 06/24/23 05:37 Creatinine 0.96 mg/dL (0.70-1.30) 06/24/23 05:37 Glucose 168 mg/dL (74-106) H 06/24/23 05:37 Magnesium 1.7 mg/dL (1.6-2.4) 06/24/23 05:37 Total Bilirubin 0.6 mg/dL (0.2-1.0) 06/24/23 05:37 AST 8 U/L (15-37) L 06/24/23 05:37 ALT 12 U/L (16-61) L 06/24/23 05:37 Alkaline Phosphatase 62 U/L (45-117) 06/24/23 05:37 Lipase 12 U/L (13-75) L 06/23/23 08:15 Home Medications: Carvedilol [Coreg] 12.5 mg PO BIDWM 11/16/21 Levothyroxine Sodium 125 mcg PO [id number] 11/16/21 Omeprazole 40 mg PO DAILY 11/16/21 Spironolactone 50 mg PO DAILY 11/16/21 Atorvastatin Calcium [Lipitor*] 10 mg PO BEDTIME 01/22/23 Citalopram [Celexa*] 10 mg PO DAILY 01/22/23 Fluticasone/Salmeterol [Advair 250-50 Diskus] 1 puff IH BID 01/22/23 Apixaban [Eliquis] 5 mg PO BID 90 Days #180 tab 01/30/23 Amiodarone HCl [Cordarone*] 200 mg PO DAILY 06/24/23 Furosemide 80 mg PO DAILY 10 Days #10 tab 06/24/23 Furosemide [Lasix*] 40 mg PO DAILY 06/24/23 Metformin HCl 1,000 mg PO BID 06/24/23 glipiZIDE [Glipizide] 10 mg PO BID 06/24/23 New Medications: Furosemide 80 mg PO DAILY 10 Days #10 tab Physician Discharge Instructions: Physical Exam General: Alert, In no apparent distress, Oriented x3, Obese HEENT: Atraumatic, PERRLA, EOMI Neck: Supple Respiratory: symmetrical air movement, Crackles/rales Cardiovascular: Irregular heart rate/rhythm Gastrointestinal: Normal bowel sounds Musculoskeletal: No tenderness Integumentary: No rashes, Other (Bruising to epigastrum S/P loop recorder inser tion) Neurological: Normal gait, Normal speech, Normal strength at 5/5 x4 extr, Normal tone, Normal affect 1. Please make an appointment for a follow up with cardiology in 7 -10 days, - Dr. Silverman's number is available if a communications project manager is needed. 2. Follow up with GI for cirrhosis of liver with mild ascites 3. Follow up with PCP for medication management 4. New prescription dose for Lasix 80 mg daily for 10 days then return to Lasix 40 mg daily 5. Heart healthy diet with low sodium 6. No activity restrictions 7. Return to ED if symptoms return New medication dose Lasix 80 mg daily Diet: AHA Activity: Ad lenka Followup: Raymundo Marie DO [Primary Care Provider] - Nghia Silverman MD [ACTIVE - CAN ADMIT] - Time spent managing pt's care (in minutes): 55
[2023-06-24] MEDS ORDERED: ENOXAPARIN 80 MG/0.8 ML SQ SCH (21:00)
--- NOTE | 2023-06-27 15:33 | EKG ---
Test Date: 2023-06-23 Test Time: 08:38:46 Quality Intern: LUCIAN MEASUREMENT RESULTS: Intervals: Rate: 64 OK: QRSD: 164 QT: 498 QTc: 513 [place]: P: OK: QRS: 99 T: -51 INTERPRETIVE STATEMENTS: Atrial fibrillation Rightward axis Left bundle branch block Abnormal ECG Compared to ECG 05/02/2023 02:27:19 Right-axis deviation now present Left bundle-branch block now present Ventricular premature complex(es) no longer present T-wave abnormality no longer present Possible ischemia no longer present Electronically Signed On 06-27-23 15:18:03 CRYSTAL MACHINING COORDINATOR by Nghia Silverman
== END 2023-06-24 16:30 | disposition home or self-care (01) | DRG 291 ==
LOC: ER 07:44 → ERHOLD 11:39 → 2ND 20:30
PROVIDERS: ADMIT Hospitalist; ATTEND Hospitalist
PROC: 5A09357 Assistance with Respiratory Ventilation, Less than 24 Consecutive Hours, Continuous Positive Airway Pressure (ICD-10-PCS; principal; 2023-06-23)
DX: I11.0 Hypertensive heart disease with heart failure (principal); I50.23 Acute on chronic systolic (congestive) heart failure; E11.9 Type 2 diabetes mellitus without complications; I48.91 Unspecified atrial fibrillation; E03.9 Hypothyroidism, unspecified; D64.9 Anemia, unspecified; K70.31 Alcoholic cirrhosis of liver with ascites; I07.1 Rheumatic tricuspid insufficiency; I27.20 Pulmonary hypertension, unspecified; G47.33 Obstructive sleep apnea (adult) (pediatric); J44.9 Chronic obstructive pulmonary disease, unspecified; Z92.3 Personal history of irradiation; Z79.84 Long term (current) use of oral hypoglycemic drugs; Z79.02 Long term (current) use of antithrombotics/antiplatelets; Z92.21 Personal history of antineoplastic chemotherapy; Z11.52 Encounter for screening for COVID-19; Z79.01 Long term (current) use of anticoagulants; Z90.49 Acquired absence of other specified parts of digestive tract; Z79.890 Hormone replacement therapy; Z79.899 Other long term (current) drug therapy
CPT/HCPCS: 0240U; 36415; 71045; 71046; 71250; 74176; 76604; 80048; 80053; 80076; 81001; 82140; 82947; 83605; 83690; 83735; 83880; 84484; 85025; 85610; 87040; 93005; 94660; 96365; 96366; 96375; 99285; J0696; J1815; J1940; J2930; J7030; J7050; J7614; J7644

== ENCOUNTER 2024-02-02 08:08 | Emergency (ER) | payer OTHER ==
[2024-02-02 09:03] LABS: SARS-CoV-2 Antigen CONTROL BLUE LINE VIS/BG OK; SARS-CoV-2 Antigen Rapid Res Negative (Negative)
--- NOTE | 2024-02-02 09:40 | RAD REPORT ---
EXAM DESCRIPTION: [place] Single View02/02/2024 9:23 am CLINICAL HISTORY: Cough COMPARISON: 2022 FINDINGS: The lungs appear clear of acute infiltrate. The heart is markedly enlarged. Pacemaker rafal ds in place IMPRESSION: No acute abnormalities displayed
--- NOTE | 2024-02-02 09:49 | ER ---
Nurse's Notes [facility] Name: Juan Nelson Age: 78 yrs Sex: Male : 1945 Arrival Date: 02/02/2024 Time: 08:08 Bed 20 Private MD: Diagnosis: Allergic rhinitis, unspecified Presentation: 02/01 08:30 Chief complaint: Cough, sneezing, sinus congestion, headache, and malaise x 2 days. hb Coronavirus screen: Client presents with at least one sign or symptom that may indicate coronavirus-19. Standard/surgical mask placed on the client. Provider contacted for isolation considerations. Ebola Screen: No symptoms or risks identified at this time. Initial Sepsis Screen: Does the patient meet any 2 criteria? No. Patient's initial sepsis screen is negative. Does the patient have a suspected source of infection? No. Patient's initial sepsis screen is negative. Risk Assessment: Do you want to hurt yourself or someone else? Patient reports no desire to harm self or others. Onset of symptoms was January 31, 2024. 08:30 Method Of Arrival: Ambulatory 08:30 Acuity: KRISTEL 4 hb Triage Assessment: 08:31 General: Appears in no apparent distress. Behavior is calm, cooperative. Pain: Pain hb currently is 3 out of 10 on a pain scale. EENT: Reports nasal congestion nasal discharge. Neuro: Level of Consciousness is awake, alert, obeys commands, Oriented to person, place, time, situation. Cardiovascular: Patient's skin is warm and dry. Historical: - Allergies: 08:31 No Known Drug Allergies; hb - PMHx: 08:31 ascites; chemotherapy; Hypertensive disorder; Diabetes - NIDDM; Hypothyroidism; COPD; hb AFIB; throat cancer; - PSHx: 08:31 Cholecystectomy; hb - Immunization history:: Adult Immunizations up to date. - Infectious Disease History:: Denies. - Social history:: Smoking status: Patient/guardian denies using tobacco, the patient reports quitting approximately 1 years ago. Screenin:37 [facility] ED Fall Risk Assessment (Adult) History of falling in the last 3 months, rs5 including since admission No falls in past 3 months (0 pts) Confusion or Disorientation No (0 pts) Intoxicated or Sedated No (0 pts) Impaired Gait Yes (1 pt) Mobility Assist Device Used Yes (1 pt) Altered Elimination No (0 pt) Score/Fall Risk Level 0 - 2 = Low Risk Oriented to surroundings, Maintained a safe environment. Abuse screen: Denies threats or abuse. Nutritional screening: No deficits noted. Tuberculosis screening: No symptoms or risk factors identified. Assessment: 08:37 General: Appears in no apparent distress. uncomfortable, Behavior is calm, cooperative. rs5 Pain: Denies pain. Neuro: Level of Consciousness is awake, alert, obeys commands, Oriented to person, place, time, situation. Cardiovascular: Patient's skin is warm and dry. Respiratory: Airway is patent Respiratory effort is even, unlabored, Respiratory pattern is regular, symmetrical. GI: No signs and/or symptoms were reported involving the gastrointestinal system. : No signs and/or symptoms were reported regarding the genitourinary system. EENT: Reports nasal congestion nasal discharge pt states "I've been sneezing a lot". Derm: Skin is intact, Skin is pink, warm \\T\\ dry. Musculoskeletal: Range of motion: intact in all extremities, Pt reports generalized weakness. 09:37 Reassessment: Patient and/or family updated on plan of care and expected duration. Pain rs5 level reassessed. Patient is alert, oriented x 3, equal unlabored respirations, skin warm/dry/pink. Vital Signs: 08:30 BP 137 / 73; Pulse 101; Resp 20; Temp 98.2(TE); Pulse Ox 96% on R/A; Weight 86.18 kg; hb Height 5 ft. 6 in. ; Pain 3/10; 09:38 BP 133 / 77; Pulse 80; Resp 17; Pulse Ox 97% on R/A; rs5 08:30 Body Mass Index 30.67 (86.18 kg, 167.64 cm) hb 08:30 Pain Scale: Adult hb ED Course: 08:11 Patient arrived in ED. mg5 08:12 Garrett Nolan MD is Attending Physician. ec2 08:31 Triage completed. hb 08:32 Arm band placed on. hb 08:37 Patient has correct armband on for positive identification. Placed in gown. Bed in low rs5 position. Call light in reach. Side rails up X2. 08:37 SARS RAPID Sent. hb 08:37 Flu Sent. hb 08:37 No provider procedures requiring assistance completed. rs5 08:56 Alison Boyd FNP-C is PHCP. kb 09:24 CXR XRAY In Process Unspecified. EDMS 09:41 Fredo Jose, RN is Primary Nurse. rs5 10:09 Provided Education on: follow up, meds. hb 10:09 Patient did not have IV access during this emergency room visit. hb Administered Medications: No medications were administered Medication: 09:38 VIS not applicable for this client. rs5 Outcome: 09:48 Discharge ordered by . kb 10:09 Discharged to home ambulatory, with family, hb 10:09 Condition: stable 10:09 Discharge instructions given to patient, Instructed on discharge instructions, follow up and referral plans. medication usage, Demonstrated understanding of instructions, follow-up care, medications, 10:10 Patient left the ED. hb Signatures: Dispatcher [employer] [facility] Alison Boyd FNP-C FNP-Clarissa Yeh RN RN Fredo Jose, RN RN rs5 Gianna Bloom 5 Garrett Nolan MD MD ec2
--- NOTE | 2024-02-02 09:49 | EDPHYS ---
Physician Documentation [facility] – [place], [place] Name: Juan Nelson Age: 78 yrs Sex: Male : 1945 Arrival Date: 02/02/2024 Time: 08:08 Bed 20 Private MD: ED Physician Garrett Nolan HPI: 02/01 09:06 This 78 yrs old Male presents to ER via Ambulatory with complaints of Flu kb Symptoms. 09:06 Pt is a 78 year old male who presents for sinus drainage, sneezing, malaise, headache kb that started 2 days ago. Denies cough, fever, chills. Daughter states pt has bad allergies all of the time and currently takes zyrtec daily. ENT put him on a medrol dose pack this week as well so he is currently taking that. . Historical: - Allergies: 08:31 No Known Drug Allergies; hb - PMHx: 08:31 ascites; chemotherapy; Hypertensive disorder; Diabetes - NIDDM; Hypothyroidism; COPD; hb AFIB; throat cancer; - PSHx: 08:31 Cholecystectomy; hb - Immunization history:: Adult Immunizations up to date. - Infectious Disease History:: Denies. - Social history:: Smoking status: Patient/guardian denies using tobacco, the patient reports quitting approximately 1 years ago. ROS: 09:06 Constitutional: As per HPI kb Exam: 09:06 Constitutional: This is a well developed, well nourished patient who is awake, alert, kb and in no acute distress. Head/Face: Normocephalic, atraumatic. ENT: Moist Mucous membranes Cardiovascular: Regular rate Respiratory: Respirations even and unlabored. No increased work of breathing. Talking in full sentences Abdomen/GI: Soft, non-tender. No distention Skin: Warm, dry with normal turgor. Normal color. MS/ Extremity: Pulses equal, no cyanosis. Neurovascular intact. Full, normal range of motion. Neuro: Awake and alert, GCS 15, oriented to person, place, time, and situation. Moves all extremities. Normal gait. Vital Signs: 08:30 BP 137 / 73; Pulse 101; Resp 20; Temp 98.2(TE); Pulse Ox 96% on R/A; Weight 86.18 kg; hb Height 5 ft. 6 in. ; Pain 3/10; :38 BP 133 / 77; Pulse 80; Resp 17; Pulse Ox 97% on R/A; rs5 08:30 Body Mass Index 30.67 (86.18 kg, 167.64 cm) hb 08:30 Pain Scale: Adult hb MDM: 08:40 Patient medically screened. ec2 09:06 Data reviewed: vital signs, nurses notes. kb 09:06 Differential diagnosis: flu, covid, uri. Historians other than the Patient: kb Daughter/Son: daughter. 09:48 Counseling: I had a detailed discussion with the patient and/or guardian regarding the kb historical points, exam findings, and any diagnostic results supporting the discharge/admit diagnosis, lab results, radiology results, the need for outpatient follow up, a family practitioner, to return to the emergency department if symptoms worsen or persist or if there are any questions or concerns that arise at home. 02/01 08:32 Order name: Flu; Complete Time: 09:06 hb 02/01 08:32 Order name: SARS RAPID; Complete Time: 09:06 hb 02/01 08:33 Order name: CXR XRAY; Complete Time: 09:41 ec2 Administered Medications: No medications were administered Disposition Summary: 02/02/24 09:48 Discharge Ordered Notes: Location: Home kb Condition: Stable kb Diagnosis - Allergic rhinitis, unspecified kb Followup: kb - With: Emergency Department - When: As needed - Reason: Worsening of condition Followup: kb - With: Private Physician - When: 2 - 3 days - Reason: Recheck today's complaints, Continuance of care, Re-evaluation by your physician Discharge Instructions: - Discharge Summary Sheet kb - Allergic Rhinitis, Adult kb Forms: - Medication Reconciliation Form kb - Antibiotic Education kb - Prescription Opioid Use kb - Patient Portal Instructions kb - Leadership Thank You Letter kb Addendum: 02/03/2024 11:49 I was immediately available for consultation during this patient's visit. I did not e c2 personally see the patient or discuss the patient with the JOHN. . Signatures: Dispatcher [employer] Alison Mccabe, MARCELA-C MARCELA-Clarissa Yeh RN RN Garrett Cook MD MD ec2 Corrections: (The following items were deleted from the chart) 02/01 08:33 08:33 Influenza Screen (A \T\ B)+BA.LAB.BRZ ordered. EDMS EDMS 08:33 08:33 SARS-COV-2 Antigen Rapid+I.LAB.BRZ ordered. EDMS EDMS 08:48 08:33 COVID-19/FLU A+B/RSV+MOL.LAB.BRZ ordered. EDMS EDMS 09:48 09:06 Pt is a 78 year old male who presents for sinus drainage, malaise, headache that kb started 2 days ago. Denies cough, fever, chills. kb
[2024-02-02 10:30] VITALS: BP 133/77; TEMP 98.2; O2SAT 97
== END 2024-02-02 10:10 | disposition home or self-care (01) ==
LOC: ER 08:08
DX: J30.9 Allergic rhinitis, unspecified (principal); J44.9 Chronic obstructive pulmonary disease, unspecified; Z11.52 Encounter for screening for COVID-19; Z85.21 Personal history of malignant neoplasm of larynx
CPT/HCPCS: 36415; 71045; 87804; 87811; 99283

== ENCOUNTER 2024-03-05 07:00 | Day surgery (SDC) | payer OTHER ==
[2024-03-05] MEDS ORDERED: NA CHLORIDE 0.9% 500 ML ONE (07:18)
[2024-03-05 07:28] VITALS: TEMP 97.5
[2024-03-05] MEDS ORDERED: HEPA 1000U/500MLS 2,000 UNIT/1,000 ML BAG IV ONE (07:36)
[2024-03-05] MEDS ORDERED: HEPARIN 5000 UNIT/ML 1 ML VIAL ONE (07:37)
[2024-03-05] MEDS ORDERED: LIDOCAINE 1% 20 ML MDV ONE (07:37)
[2024-03-05] MEDS ORDERED: ATROPINE SULF 1 MG/10 ML SYR IV ONE (07:37)
[2024-03-05] MEDS ORDERED: HEPARIN 10,000 UNIT/10 ML VIAL IV ONE (07:37)
[2024-03-05] MEDS ORDERED: TICAGRELOR 90 MG TABLET PO ONE (07:37)
[2024-03-05] MEDS ORDERED: ASPIRIN 325 MG TAB ONE (07:38)
[2024-03-05] MEDS ORDERED: CLOPIDOGREL 75 MG TABLET ONE (07:38)
[2024-03-05] MEDS ORDERED: MIDAZOLAM HCL 2 MG/2 ML INJ ONE (07:39)
[2024-03-05] MEDS ORDERED: FENTANYL CITR 100 MCG/2 ML ONE (07:40)
[2024-03-05] MEDS: CLOPIDOGREL 75 MG TABLET PO ONE (10:00)
[2024-03-05 12:49] VITALS: O2SAT 96
[2024-03-05 13:19] VITALS: BP 132/72
--- NOTE | 2024-03-06 02:11 | OP ---
Date of Procedure: 03/05/2024 Surgeon: Deerck Linda Procedure Performed: 1.Selective coronary angiogram. 2.Lower abdominal aortogram with peripheral runoff. Indication For Procedure: Chest pain, unstable angina, abnormal stress test and claudication with ab normal BI. Complications: None. Estimated Blood Loss: Less than 50 cc. Sedation Time: 30 minutes with 1 of Versed and 50 of fentanyl. Access: Right radial, closed by TR band. Description Of Procedure: After risks, benefits, and alternatives were explained to the patient, pat ient agreed to proceed with the procedure and signed informed consent. The patient was brought back to the laboratory assistant, prepped and draped in sterile fashion. A time-out was performed and sedation was ad ministered. Next, a [place] 4 catheter was advanced over the J-wire to the LV cavity. Unable to cross the LV. Same catheter was used for selective angiogram of the left and right coronary systems. Thi s catheter was later exchanged with a JR4 catheter and a run-through wire was advanced across the les ion. Pre-dilated the lesion with an NC 2.5 mm balloon. Next, Synergy 2.75 x 32 mm drug-eluting sten t was placed across the mid RCA and this was dilated with an NC 3.0 mm balloon. Final angiogram show s WILFRED-3 flow. That catheter was later exchanged for a pigtail catheter to the abdominal aorta, [facility]. At the end of procedure, catheter was removed over the J-wir e. A sheath was removed. TR band was applied. The heparin was administered before the PCI and ACT was therapeutic. The patient was moved back to Recovery in stable condition. Findings: 1.Left main normal. 2.LAD mild luminal irregularities. 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 4.RCA proximal mild luminal irregularities, mid 70% to 90% disease, status post PCI with Synergy 2.7 5 x 32 mm drug-eluting stent. Mid to distal mild LI. Peripheral Findings: 1.Lower abdominal aorta is patent. 2.Right common iliac/external iliac/internal iliac/common femoral artery is patent. 3.Right SFA mid 50% disease and distal 80% calcified disease. 4.Right anterior tibial/peroneal occluded. 5.Right posterior tibial patent. 6.One runoff on the right side. 7.Left common iliac/external iliac/common femoral artery patent. 8.Left SFA distal 70% to 80% calcified. 9.Left anterior tibia occluded. 10.Left posterior tibial/peroneal diffuse disease. 11.Two vessel runoff on the left side. Assessment And Plan: 1.Significant mid RCA disease, status post PCI with Synergy 2.75 x 32 mm drug-eluting stent. 2.[id number] proximal left circumflex disease, anomalous. 3.Significant bilateral SFA disease, staged intervention to be done in [facility] as this w ill need shockwave most likely. Plan: 1.Aspirin 81 mg daily for life. 2.Brilinta 180 x1 was given in the laboratory assistant. 3.We will give Plavix 300 x 1 in the laboratory assistant before discharge, then continue Plavix 75 mg daily. 4.Continue aggressive medical treatment for CAD. ISRA/SERGIO Voice ID: [id number] Report ID: [id number]
--- NOTE | 2024-03-06 14:08 | EKG ---
Test Date: 2024-03-05 Test Time: 13:51:34 Landscaping Crew Leader: OTONIEL MEASUREMENT RESULTS: Intervals: Rate: 94 CO: QRSD: 170 QT: 434 QTc: 542 [place]: P: CO: QRS: 27 T: 252 INTERPRETIVE STATEMENTS: Demand pacemaker, interpretation is based on intrinsic rhythm Undetermined rhythm Left bundle branch block Abnormal ECG Compared to ECG 02/26/2024 11:33:06 Left bundle-branch block now present Electronically Signed On 03-06-24 14:05:46 CDT by Nghia Silverman
== END 2024-03-05 14:00 | disposition home or self-care (01) ==
LOC: CCL 07:00
PROVIDERS: ATTEND Internal Medicine Interventional Cardiology
DX: I25.110 Atherosclerotic heart disease of native coronary artery with unstable angina pectoris (principal); I70.213 Atherosclerosis of native arteries of extremities with intermittent claudication, bilateral legs; I70.92 Chronic total occlusion of artery of the extremities; I65.23 Occlusion and stenosis of bilateral carotid arteries; I11.0 Hypertensive heart disease with heart failure; I50.22 Chronic systolic (congestive) heart failure; I48.21 Permanent atrial fibrillation; I25.5 Ischemic cardiomyopathy; E11.9 Type 2 diabetes mellitus without complications; I27.20 Pulmonary hypertension, unspecified; Z87.891 Personal history of nicotine dependence; Z79.01 Long term (current) use of anticoagulants; Z79.84 Long term (current) use of oral hypoglycemic drugs; Z79.899 Other long term (current) drug therapy
CPT/HCPCS: 93005; 82947; 85347 ×2; 75630; 93454; 76937; C1893; Q9966; C1725; C9600; J1644; J2001; J2250; J3010; J7040; 36200; 99152; 99153; J0461

== ENCOUNTER 2024-11-20 20:49 | Emergency (ER) | payer OTHER ==
--- OUTSIDE RECORDS SUMMARY | 2024-11-20 20:53 | XMS REPORT | Clinical Summary ---
Author Name Unknown Organization [facility] Address [address] [place] [address] Care Team Providers Care Air Pollution Inspector Name Role Phone Agueda Wagoner MD Unavailable [phone] Maria L Mota RN Unavailable [phone] Chapin White MD Unavailable [phone] Cruz Bazan Unavailable Agueda Wagonre MD Unavailable [phone] Luis Farnsworth MD, Rafiq Olsen Primary Care Provider [phone] Altagracia Palomares RN Unavailable Sariah Cain [facility] Unavailable [phone] Allergies No known active allergies Medications * This document contains information received from the source organization and may not represent a complete record from that organization. metFORMIN (GLUCOPHAGE) 1000 mg tablet Take 1 tablet (1,000 mg) by mouth 2 (two) times a day with meals. 11/16/2021 Active glipiZIDE (GLUCOTROL) 10 mg tablet Take 1 tablet (10 mg) by mouth 2 (two) times a day before meals. 01/22/2023 Active valsartan (DIOVAN) 80 mg tablet Take 1 tablet (80 mg) by mouth daily. 02/17/2024 Active levothyroxine (SYNTHROID, LEVOTHROID) 125 mcg tablet Take 1 tablet (125 mcg) by mouth daily. 10/04/2023 Active spironolactone (ALDACTONE) 25 mg tablet Take 1 tablet (25 mg) by mouth daily. 02/17/2024 Active carvedilol (COREG) 12.5 mg tablet Take 1 tablet (12.5 mg) by mouth twice daily. 05/20/2023 Active furosemide (LASIX) 80 mg tablet Take 1 tablet (80 mg) by mouth daily. Active omeprazole (PriLOSEC) 40 MG capsule Take 1 capsule (40 mg) by mouth every morning before breakfast. 10/04/2023 Active atorvastatin (LIPITOR) 10 mg tablet Take 1 tablet (10 mg) by mouth at bedtime. 04/09/2022 Active amiodarone (PACERONE) 200 mg tablet Take 1 tablet (200 mg) by mouth daily. Active Eliquis 5 mg tablet Take 1 tablet (5 mg) by mouth every 12 (twelve) hours. Active citalopram (CeleXA) 10 mg tablet Take 1 tablet (10 mg) by mouth daily. 12/04/2022 Active fluticasone propionate-salm eterol (ADVAIR) 100 mcg-50 mcg/inhalation diskus inhaler Inhale 1 puff by mouth daily. Active clopidogrel (PLAVIX) 75 mg tablet Take 1 tablet (75 mg) by mouth daily. 04/26/2024 Active Active Problems No known active problems Encounters * This document contains information received from the source organization and may not represent a complete record from that organization. Date Type Department Care Team Description 08/05/2024 Telephone [facility] [address] [facility], 10th Floor, [place] [address] Altagracia Palomares RN Nurse Navigation (Overall care - speech follow up ) 06/15/2024 11:02 AM PAPER HANGER - 06/15/2024 11:59 PM PAPER HANGER Hospital Encounter [facility]ology [address] [facility], 10th [place] [address] Elisa Churchill PA Porsche, Christine E, CCC-TAIL BOARD MAN Dysphagia, not otherwise specified Discharge Disposition: Home 06/15/2024 9:24 AM PAPER HANGER - 06/15/2024 11:01 AM PAPER HANGER Hospital Encounter [facility] [address], 10th [place] [address] Rafiq Smith Jr., MD McMillan, Holly, CCC-TAIL BOARD MAN Lymphedema (Primary Dx) Discharge Disposition: Home 06/15/2024 9:22 AM PAPER HANGER - 06/15/2024 9:23 AM PAPER HANGER Hospital Encounter [facility]ology [address], 10th [place] [address] Elisa Churchill PA McMillan, Holly, CCC-TAIL BOARD MAN Dysphagia, not otherwise specified Discharge Disposition: Home 06/15/2024 Travel 05/18/2024 [facility] [address], 10th Floor, [place] [address] Altagracia Palomares, RN Nurse Navigation (General follow up ) 05/04/2024 2:30 PM CDT - 05/04/2024 11:59 PM CDT Hospital Encounter [facility]ology [address], 10th [place] [address] Elisa Churchill PA Schwartz, Talia H, CCC-TAIL BOARD MAN Dysphagia, not otherwise specified Discharge Disposition: Home 05/04/2024 1:45 PM CDT Follow-Up [facility] [place] - [facility] Ne[facility] [address] [place] [address] Rafiq Smith Jr., MD Squamous cell carcinoma, NOS of supraglottis 05/04/2024 9:45 AM CDT - 05/04/2024 2:29 PM CDT Hospital Encounter [facility]ology [address], 10th Floor [address] [place], [place] [id number] Elisa Churchill PA Barbon, Carly E A, PhD Dysphagia, not otherwise specified Discharge Disposition: Home 05/04/2024 8:48 AM CDT - 05/04/2024 9:44 AM CDT Hospital Encounter [facility] [address] [facility] [address]ldg, 3rd [place] [address] Rafiq Smith Jr., MD Bryan, Rose B, [facility]-TAIL BOARD MAN Squamous cell carcinoma, NOS of supraglottis Discharge Disposition: Home 05/04/2024 Telephone [facility] [address] [facility] [address] d[address], 10th Floor, [place] [address] Altagracia Palomares, RN Follow-up (Overall care -) 05/04/2024 Travel 04/30/2024 Telephone MD [facility] [place] - Radiation Oncology [address] [place] [address] [address] [place] [address] Jane Russell MA Appointment (I spoke with the patient's daughter to let her know of changes in her father's future appointments. The patient's daughter said she understood and said she had no questions at the moment.) 04/27/2024 Orders Only MD [facility] [place] - Head & Ne[facility] Surgery [address] [place] [address] Elisa Churchill PA Dysphagia, not otherwise specified (Primary Dx) 04/26/2024 6:00 AM CDT - 04/26/2024 11:59 PM CDT Hospital Encounter CT Imaging and Diagnostic Imaging [address] [facility] Main d[address], 3rd [place] [address] Rafiq Smith Jr., MD Squamous cell carcinoma, NOS of supraglottis Discharge Disposition: Home 04/22/2024 Telephone [facility] [address] [facility] Main d[address], 10th Floor, [place] [address] Altagracia Palomares, MELVIN Follow-up (Post First Visit Follow up ) 04/21/2024 Telephone [facility] [address] [facility] [address]ld[address], 10th Floor, [place] [address] Maria L Mota, RN 04/20/2024 10:00 AM CDT Office Visit MD [facility] [place] - Head & Ne[facility] Surgery [address] [place] [address] Rafiq Smith Jr., MD Squamous cell carcinoma, NOS of supraglottis (Primary Dx) 04/20/2024 9:00 AM CDT NPR MDA PATIENT ACCESS Rafiq Smith Jr., MD 04/20/2024 Orders Only Abdominal Imaging [address] [place] [id number] Alie Proctor, PET TRAINING INSTRUCTOR 04/20/2024 Travel 04/13/2024 [facility] [address] [place] [address] Main [facility], 10th Floor, [place] [address] Maria L Mota, RN Nurse Navigation (Plan of day ) 03/24/2024 9:25 PM CDT Ancillary Procedure Image Library [address] [place] [address] Rafiq Smith Jr., MD Cancer 03/24/2024 9:20 PM CDT Ancillary Procedure Image [facility] [address] [place] [address] Rafiq Smith Jr., MD Cancer 03/24/2024 9:15 PM CDT Ancillary Procedure Image [facility] [address] [place] [address] Rafiq Smith Jr., MD Cancer 03/24/2024 9:10 PM CDT Ancillary Procedure Image [facility] [address] [place] [address] Rafiq Smith Jr., MD Cancer 03/24/2024 9:05 PM CDT Ancillary Procedure Image Library [address] [place] [address] Rafiq Smith Jr., MD Cancer 03/24/2024 9:00 PM CDT Ancillary Procedure Image [facility] [address] [place] [address] Rafiq Smith Jr., MD Cancer 03/24/2024 8:55 PM CDT Ancillary Procedure Image [facility] [address] [place] [address] Rafiq Smith Jr., MD Cancer 03/24/2024 8:50 PM CDT Ancillary Procedure Image Library [address] [place] [id number] Rafiq Smith Jr., MD Cancer 03/24/2024 8:45 PM CDT Ancillary Procedure Image [facility] [address] [place] [address] Rafiq Smith Jr., MD Cancer 03/24/2024 8:40 PM CDT Ancillary Procedure Image [facility] [address] [place] [address] Rafiq Smith Jr., MD Cancer 03/24/2024 8:35 PM CDT Ancillary Procedure Image Library [address] [place] [address] Rafiq Smith Jr., MD Cancer 03/24/2024 8:30 PM CDT Ancillary Procedure Image Library [address] [place] [address] Rafiq Smith Jr., MD Cancer 03/24/2024 8:25 PM CDT Ancillary Procedure Image Library [address] [place] [address] Rafiq Smith Jr., MD Cancer 03/24/2024 8:20 PM CDT Ancillary Procedure Image Library [address] [place] [address] Rafiq Smith Jr., MD Cancer 03/24/2024 8:15 PM CDT Ancillary Procedure Image Library [address] [place] [address] Rafiq Smith Jr., MD Cancer 03/24/2024 8:10 PM CDT Ancillary Procedure Image Library [address] [place] [address] Rafiq Smith Jr., MD Cancer 03/24/2024 8:05 PM CDT Ancillary Procedure Image Library [address] [place] [address] Rafiq Smith Jr., MD Cancer 03/24/2024 8:00 PM CDT Ancillary Procedure Image Library [address] [place] [address] [place] [address] Rafiq Smith Jr., MD Cancer 03/19/2024 Orders Only MD [facility] [place] - Head & Ne[facility] Surgery [address] [place] [address] Elisa Churchill PA 03/18/2024 Lab Requisition [facility] Mynor Forrester MD Beach, Robyn A, MD 03/17/2024 Documentation [facility] [address] [place] [address] Main [facility], 10th Floor, [place] [address] Maria L Mota, RN Follow-up (Clinical Review ) 03/16/2024 Community Orders [facility] Agueda Wagoner MD 03/13/2024 Telephone [facility] - [facility] Oncology [address] [place] [address] Main dg, 10th Floor, [place] [address] Maria L Mota, RN New Patient 03/11/2024 Telephone [facility] [place] - Surgical Oncology [address] [place] [address] Main dg, 10th Floor, [place] [address] Maria L Mota, RN after 11/21/2023 Surgical History Surgery Date Site/Laterality Comments CHOLECYSTECTOMY CARDIAC PACEMAKER PLACEMENT 10/28/2023 - 11/26/2023 defibrillator - (from [facility]) CORONARY ANGIOPLASTY 03/14/2024 X 1 Medical History Medical History Date Comments Heart failure Hypertension Irregular heart beat Migraine Hearing loss Swallowing problem 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 Cirrhosis Diverticulitis Benign prostatic hyperplasia Disorder of thyroid gland Type 2 diabetes mellitus Cancer of pharynx 10/18 Family History Medical History Relation Name Comments Breast cancer Sister Tory Rincon Relation Name Status Comments Sister Tory Rincon Social History Tobacco Use Types Packs/Day Years Used Date Smoking Tobacco: Former Cigarettes 1.5 50 1 962 - 10/14/2022 Smokeless Tobacco: Never Alcohol Use Standard Drinks/Week Comments Not Currently 0 (1 standard drink = 0.6 oz pur e alcohol) stopped drinking 5 years ago Sex and Gender Information Value Date Recorded Sex Assigned at Male 03/11/2024 3:21 PM CDT Legal Sex Male 1:49 PM CDT Gender Identity Male 03/11/2024 3:21 PM CDT Sexual Orientation Straight 03/12/2024 4: 07 PM CDT Obstetrics History Last Filed Vital Signs Vital Sign Reading Time Taken Comments Blood Pressure 119/72 05/04/2024 1:26 PM CDT Pulse 51 05/04/2024 1:26 PM CDT Temperature 36.4 °C (97.6 °F) 05/04/2024 1:26 PM CD T Respiratory Rate 18 05/04/2024 1:26 PM CDT Oxygen Saturation - - Inhaled Oxygen Concentration - - Weight 94.9 kg (209 lb 3.5 oz) 05/04/2024 1:26 P M CDT Height 167 cm (5' 5.75") 04/20/2024 10:03 AM CDT Body Mass Index 34.03 04/20/2024 10:03 AM CDT Plan of Treatment Health Maintenance Due Date Last Done Comments COVID-19 Vaccine ( season) 2024 Influenza Vaccine (#1) 2024 04/26/2022, 2020 Pneumococcal Vaccine: 50+ Years Completed , 02/28/2014 Procedures Procedure Name Priority Date/Time Associated Diagnosis Comments HEPATITIS C VIRUS ANTIBODY Routine 05/04/2024 1:06 PM CDT Squamous cell carcinoma, NOS of supraglottis TAIL BOARD MAN VIDEOSTROBOSCOPY Routine 05/04/2024 9:45 AM CDT Dysphagia, not otherwise specified FL MODIFIED BARIUM SWALLOW W SPEECH Routine 05/04/2024 9:27 AM CDT Squamous cell carcinoma, NOS of supraglottis CT SOFT TISSUE NECK W CONTRAST Routine 04/26/2024 7:19 AM CDT Squamous cell carcinoma, NOS of supraglottis POC CREATININE Routine 04/26/2024 6:[address] CHEST Routine 02/11/2024 9:25 PM CDT Cancer after 11/21/2023 Results * Hepatitis C Virus Antibody (05/04/2024 1:06 PM CDT) HCVAb. Non Reactive Non Reactive 05/04/2024 7:38 PM CDT [facility] Blood Peripheral blood specimen / Unknown Venipuncture / Unknown 05/04/2024 1:06 PM CDT 05/04/2024 1:07 PM CDT Narrative [facility] - 05/04/2024 7:38 PM CDT Antibody detection in the immunocompromised and immunosuppressed population may be delayed or absent entirely. Therefore serial testing, correlation with other clinical findings, and supplemental testing (if available) should be taken into consideration when interpreting the results. Rafiq Smith Jr., MD LAB BLOOD ORDERABLES Jessica farr Result [facility] Unless otherwise noted, all lab tests performed by: Division of Pathology and Laboratory Medicine [address] [place] [id number] * TAIL BOARD MAN Videostroboscopy (05/04/2024 9:45 AM CDT) Narrative [facility] - 05/04/2024 9:45 AM CDT Yamel Root, PhD 05/05/2024 9:17 PM TAIL BOARD MAN Videostroboscopy Site: flexible Laterality (if applicable): right Date/Time: 05/04/2024 9:45 AM Provider Information: Performed by: Yamel Root, PhD Authorized by: Elisa Churchill PA Supervisor [employer] Fab[employer] present?: no Indication: Indications for procedure: abnormal symptom Anesthesia: Local anesthesia used?: Yes Local anesthetic: lidocaine spray Sedation: Patient sedated?: patient not sedated Specimen(s) Removed: Specimen(s) removed: no specimen collected Estimated Blood Loss: Estimated blood loss: none Complications: Complications: none Patient Disposition: Patient disposition: discharge to home Elisa Yoselyn Sunland PA TAIL BOARD MAN ORDERABLES Fin al Result [facility] * FL Modified Barium Swallow w Speech (05/04/2024 9:27 AM CDT) Anatomical Region Laterality Modality Neck Radio Fluoroscop y 05/04/2024 9:29 AM CDT Impressions 05/04/2024 12:04 PM CDT 1. Silent aspiration seen with thin liquids. 2. Silent laryngeal penetration seen with nectar thick barium. 3. Pharyngeal contraction mildly reduced bilaterally. Please refer to the separately dictated speech pathology report for the complete assessment of the swallow function and recommendations. Narrative 05/04/2024 12:04 PM CDT FULL RESULT: Examination: FL MODIFIED BARIUM SWALLOW W SPEECH on 05/04/2024 9:27 AM. 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 History of dysphagia and dyspnea when laying flat. 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 Comparison: CT soft tissue neck with contrast on 04/26/2024. Technique: A modified barium swallow was performed with speech pathology department. The patient was given barium mixed with a variety of consistencies including thin liquids, pudding, nectar thick liquids, and crackers to swallow by mouth under video fluoroscopy. Findings: There was no nasopharyngeal reflux. There was silent aspiration seen with thin liquids. There was silent laryngeal penetration without aspiration seen with nectar thick liquids. There was no penetration or aspiration seen with pudding or cracker. There was no pharyngeal residue with thin liquids or solids. Pharyngeal contraction was mildly reduced bilaterally. Procedure Note Marie Pierce MD - 05/04/2024 FULL RESULT: Examination: FL MODIFIED BARIUM SWALLOW W SPEECH on 05/04/2024 9:27 AM. Clinical History: Squamous cell carcinoma of the supraglottic larynxcompleted concurrent chemoradiation on 12/2022 from outside institution.History of dysphagia and dyspnea when laying flat. Indication: Baseline evaluation of swallow function; Squamous cellcarcinoma of the supraglottic larynx completed concurrent chemoradiation;dysphagia assessment. Comparison: CT soft tissue neck with contrast on 04/26/2024. Technique: A modified barium swallow was performed with speech pathologydepartment. The patient was given barium mixed with a variety ofconsistencies including thin liquids, pudding, nectar thick liquids, andcrackers to swallow by mouth under video fluoroscopy. Findings: There was no nasopharyngeal reflux. There was silent aspiration seen withthin liquids. There was silent laryngeal penetration without aspirationseen with nectar thick liquids. There was no penetration or aspirationseen with pudding or cracker. There was no pharyngeal residue with thinliquids or solids. Pharyngeal contraction was mildly reduced bilaterally. IMPRESSION: 1. Silent aspiration seen with thin liquids. 2. Silent laryngeal penetration seen with nectar thick barium. 3. Pharyngeal contraction mildly reduced bilaterally. Please refer to the separately dictated speech pathology report for thecomplete assessment of the swallow function and recommendations. us Rafiq Smith Jr., MD IMG FLUOROSCOPY ORDERABLE S Final Result * CT Soft Tissue Neck with Contrast (04/26/2024 7:19 AM CDT) Anatomical Region Laterality Modality Neck Computed Tomogra phy 04/27/2024 11:0 5 AM CDT Impressions 04/27/2024 11:17 AM CDT No local or warren recurrence. NIRADS SCORE: 1. Primary: NIRADS 1: Expected post-treatment changes without evidence of recurrence, routine surveillance 2. Nodes: NIRADS 1: No evidence of recurrence; routine surveillance ACTIONABLE ITEMS/RECOMMENDATIONS*: None. *An Actionable Finding is a finding that may be unrelated to the original reason for imaging but potentially actionable, meaning further investigation may be necessary. The Actionable Findings Vigilance Unit (AFVU) assists medical providers with responding to additional radiologic findings that are unexpected and potentially actionable. Narrative 04/27/2024 11:17 AM CDT FULL RESULT: Examination: CT SOFT TISSUE NECK W CONTRAST on 04/26/2024 7:19 AM. CLINICAL HISTORY: Squamous cell carcinoma, NOS of supraglottis; TAR DISTRIBUTOR OPERATOR completed December [address] [facility] INDICATION: Hx of supraglottic laryngeal SCC with ongoing dysphagia, dyspnea when laying flat COMPARISON: CT neck dated 03/26/2023. TECHNIQUE: CT neck with IV contrast was performed. FINDINGS: Primary Site: There is no definite evidence for recurrence in the supraglottic larynx or in the upper aerodigestive tract. Post-treatment changes: Expected post treatment changes are noted that includes diffuse mucosal edema of the supraglottic and glottic larynx. There is no evidence of osteoradionecrosis. Lymph Nodes: There is no cervical adenopathy. Distant Sites: No metastasis is seen in the visualized brain. No bony metastasis is seen. No metastasis is seen in the lung apices. Procedure Note May Cedeño MD - 04/27/2024 FULL RESULT: Examination: CT SOFT TISSUE NECK W CONTRAST on 04/26/2024 7:19 AM. CLINICAL HISTORY: Squamous cell carcinoma, NOS of supraglottis; CRTcompleted December [address] [facility] INDICATION: Hx of supraglottic laryngeal SCC with ongoing dysphagia,dyspnea when laying flat COMPARISON: CT neck dated 03/26/2023. TECHNIQUE: CT neck with IV contrast was performed. FINDINGS: Primary Site: There is no definite evidence for recurrence in the supraglottic larynx justo the upper aerodigestive tract. Post-treatment changes: Expected post treatment changes are noted that includes diffuse mucosaledema of the supraglottic and glottic larynx. There is no evidence of osteoradionecrosis. Lymph Nodes: There is no cervical adenopathy. Distant Sites: No metastasis is seen in the visualized brain. No bony metastasis is seen. No metastasis is seen in the lung apices. IMPRESSION: No local or warren recurrence. NIRADS SCORE: 1. Primary: NIRADS 1: Expected post-treatment changes without evidence ofrecurrence, routine surveillance 2. Nodes: NIRADS 1: No evidence of recurrence; routine surveillance ACTIONABLE ITEMS/RECOMMENDATIONS*: None. *An Actionable Finding is a finding that may be unrelated to the originalreason for imaging but potentially actionable, meaning furtherinvestigation may be necessary. The Actionable Findings Vigilance Unit(AFVU) assists medical providers with responding to additional radiologicfindings that are unexpected and potentially actionable. Rafiq Smith Jr., MD IM CT ORDERABLES Final R esult * (ABNORMAL) POC Creatinine (04/26/2024 6:23 AM CDT) POC Creatinine 1.3 0.6 - 1.3 mg/dL 04/26/2024 6:26 AM T [facility] Comment:Medications, especia lly hydroxyurea or supplements, such as ascorbate, can interfere with test results causing a falsely and significantly higher result than expected. If a problem is suspected with a patient's result, a sample should be sent to the laboratory for confirmatory testing. POC eGFR 57(L) >=60 mL/min/1.7 3 sq. m 04/26/2024 6:26 AM T [facility] Comment: The eGFRcr is calculated with the 2020 CKD-EPI creatinine equation using creatinine, patient's age, and sex for adults 18 years of age and older. Other factors, especially muscle mass, may affect accuracy and need to be considered. According to the Kidney Disease: Improving Global Outcomes (KDIGO) CKD Work Group 2012 Clinical Practice Guideline, chronic kidney disease (CKD) is defined as the abnormalities of kidney structure or function, present for more than 3 months, with implications for health. CKD should be classified by cause, GFR category, and albuminuria category. KDIGO guidelines provide the following GFR categories. Stage / Description / GFR mL/min/1.73 m2: G1* / Normal or high / >= 90 G2* / Mildly decreased / 60-89 G3a / Mildly to moderately decreased / 45-59 G3b / Moderately to severely decreased / 30-44 G4 / Severely decreased / 15-29 G5 / Kidney failure / <15 *In the absence of evidence of kidney damage, neither G1 nor G2 fulfill criteria for CKD. Blood 04/26/2024 6:23 AM CDT 04/26/2024 6:[address] [facility] - 04/26/2024 6:26 AM CDT Method description: The i-STAT is an analyzer used for in vitro quantification of various analytes in whole blood. The device uses a single disposable cartridge which contains microfabricated sensors, a calibration solution, fluidics system, and a waste chamber. Each test cartridge contains chemically sensitive biosensors on a silicon chip that are configured to perform specific tests. The microfabricated sensors measure analyte concentration by an electrochemical assay. us Rafiq Smith Jr., MD POCT ORDERABLES - DEVICE Final Result [facility] Unless otherwise noted, all lab tests performed by: Division of Pathology and Laboratory Medicine [address] [place] [id number] * OSI CT Chest (02/11/2024 9:25 PM CDT) Narrative Systemgenerated, Documentation - 03/24/2024 9:25 PM CDT Study acquired at another institution. For comparison only. No MD Pat[facility] originated interpretation requested or available. us Rafiq Smith Jr., MD IMG OUTSIDE IMAGE ORDERAB LES Final Result after 11/21/2023 Care Teams Air Pollution Inspector Relationship Specialty Start Date End Date Agueda Wagoner MD [address] [place] [id number] [email or web address] - External Follow Up A Otolaryngology 03/11/24 03/11/24 Chapin White MD [address] [place] [id number] [email or web address] - External Follow Up A Radiation Oncology 03/12/24 Cruz Bazan [address] [place], [place] [id number] [address] [place] [address] PCP - External Primary Care Provider 03/12/24 Agueda Wagoner MD [address] [place] [id number] [email or web address] PCP - External Referring Otolaryngology 03/12/24 Rafiq Smith Jr., MD [address] [place] [phone] [email or web address] PCP - General Head and Neck Surgery 03/12/24 Maria L Mota RN [address] [place] [address] [id number] [email or web address] Intake Nurse Navigator Nursing 03/11/24 04/20/24 Altagracia Palomares RN [address] [place] [phone] [email or web address] Treatment Nurse Navigator Nursing 04/21/24 08/04/24 Sariah Cain, [facility] [address] [place] [phone] [email or web address] Speech Language Pathologist Speech Pathology 05/04/24
[2024-11-20 21:34] LABS: Absolute Eosinophils 0.2 K/uL (0-0.5); Absolute Monocytes 0.7 K/uL (0.1-1.3); Absolute Neutrophil 3.7 K/uL (1.8-8.0); Basophils % 0.5 % (0-1.3); Eosinophils % 3.6 % (0-4.4); Hemoglobin 8.8 g/dL (13.6-17.9); Lymphocytes % 17.8 % (15.3-44.8); MCH 27.2 pg (27.0-35.0); MCHC 33.7 g/dL (32.0-36.0); MCV 80.8 fL (80-100); MPV 7.2 fL (7.6-11.3); Monocytes % 12.7 % (3.3-12.3); Neutrophils % 65.4 % (41.7-73.7); Nucleated Red Blood Cells % 0.1 % (0-0); PT Prothrombin Time 14.8 SECONDS (10-13.0); Platelets 209 thou/uL (152-406); Protime INR 1.32; RBC Red Blood Cell Count 3.22 M/uL (4.33-5.43)
--- NOTE | 2024-11-20 23:16 | EDPHYS ---
Physician Documentation [facility] Name: Juan Nelson Age: 79 yrs Sex: Male : 1945 Arrival Date: 11/20/2024 Time: 20:49 Bed 7 Private MD: ED Physician Adam Warren HPI: 11/20 21:07 This 79 yrs old Male presents to ER via Unassigned with complaints of post ms3 left lower extremity angioplasty today/ pt bleeding from area. 21:07 79-year-old male with past medical history of liver cirrhosis, heart failure, ms3 hypertension, diabetes, hyperlipidemia, peripheral arterial disease of both legs presents to the emergency department for bleeding from angioplasty site from earlier this morning. Patient denies pain, chest pain, shortness of breath, nausea, vomiting. Patient arrived home around 3:30 PM and on waking up noted his underwear to be bloody and the bandage to have lifted.. Historical: - Allergies: 21:07 No Known Allergies; dd2 - PMHx: 21:07 AFIB; ascites; chemotherapy; COPD; Diabetes - NIDDM; Hypertensive disorder; dd2 Hypothyroidism; throat cancer; - PSHx: 21:07 Cholecystectomy; DEFIB (Cholecystectomy); ANGIOPLASTY (Cholecystectomy); dd2 - Immunization history:: Adult Immunizations up to date. - Infectious Disease History:: Denies. - Social history:: Smoking status: Patient denies any tobacco usage or history of. ROS: 21:07 Constitutional: Negative for fever, and chills. Cardiovascular: Negative for chest ms3 pain, and palpitations. Respiratory: Negative for shortness of breath, cough, wheezing, and pleuritic chest pain, Abdomen/GI: Negative for abdominal pain, nausea, vomiting, diarrhea, and constipation, MS/Extremity: Negative for injury and deformity, 21:07 Skin: Positive for Bloody bandage left groin with bleeding, Exam: 21:07 Constitutional: This is a well developed, well nourished patient who is awake, alert, ms3 and in no acute distress. Cardiovascular: Regular rate and rhythm with a normal S1 and S2. No gallops, murmurs, or rubs. Normal PMI, no JVD. No pulse deficits. Respiratory: Lungs have equal breath sounds bilaterally, clear to auscultation and percussion. No rales, rhonchi or wheezes noted. No increased work of breathing, no retractions or nasal flaring. Abdomen/GI: Soft, non-tender, with normal bowel sounds. No distension or tympany. No guarding or rebound. No evidence of tenderness throughout. 21:07 Skin: Bloody dressing left groin partially removed. Large blood clot under partially removed Tegaderm.. Vital Signs: 21:05 BP 126 / 72; Pulse 81; Resp 17; Temp 98.5; Pulse Ox 96% on R/A; Pain 0/10; dd2 21:36 BP 126 / 72; Pulse 80; Resp 17 S; Pulse Ox 97% on R/A; Weight 76.66 kg; ha1 22:30 BP 126 / 72; Pulse 82; Resp 17 S; Pulse Ox 99% on R/A; ha1 23:23 BP 126 / 72; Pulse 80; Resp 18; Temp 98.5; Pulse Ox 99% ; Pain 0/10; bm8 21:05 Pain Scale: Adult dd2 23:23 Pain Scale: Adult bm8 Palmer Coma Score: 23:23 Eye Response: spontaneous(4). Motor Response: obeys commands(6). Verbal Response: bm8 oriented(5). Total: 15. MDM: 21:07 Differential diagnosis: Postop bleeding. ms3 21:10 Medical Screening Exam initiated ms3 11/21 02:38 Data reviewed: vital signs, nurses notes, lab test result(s), and as a result, I will ms3 discharge patient. Counseling: I had a detailed discussion with the patient and/or guardian regarding the historical points, exam findings, and any diagnostic results supporting the discharge/admit diagnosis, lab results, the need for outpatient follow up, to return to the emergency department if symptoms worsen or persist or if there are any questions or concerns that arise at home. Special discussion: I discussed with the patient/guardian in detail that at this point there is no indication for admission to the hospital. It is understood, however, that if the symptoms persist or worsen the patient needs to return immediately for re-evaluation. ED course: On reevaluation patient's cath site hemostatic, dressing change. 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 Patient understands agrees with plan. All questions were answered. Return precautions discussed include bleeding, shortness of breath, chest pain, worsening symptoms, or any other concerns.. 11/20 20:58 Order name: CBC with Diff; Complete Time: 21:53 ms3 11/20 20:58 Order name: PT-INR; Complete Time: 21:53 ms3 Administered Medications: No medications were administered Disposition Summary: 11/20/24 23:16 Discharge Ordered Notes: Location: Home ms3 Condition: Stable ms3 Diagnosis - Post op bleeding ms3 Followup: ms3 - With: Private Physician - When: 2 - 3 days - Reason: Recheck today's complaints Discharge Instructions: - Discharge Summary Sheet ms3 - Incision Care, Adult ms3 - Incision Care, Adult, [id number] ms3 Forms: - Medication Reconciliation Form ms3 - Antibiotic Education ms3 - Prescription Opioid Use ms3 - Patient Portal Instructions ms3 - Leadership Thank You Letter ms3 Signatures: Dispatcher [employer] EDAdam Sanchez, DO ms3 MARQUISE WASHINGTON RN RN dd2 Corrections: (The following items were deleted from the chart) 11/20 21:10 21:07 Skin: Positive for Bloody bandage noted left groin without active bleeding, ms3 ms3
--- NOTE | 2024-11-20 23:16 | ER ---
Nurse's Notes [facility] Name: Juan Nelson Age: 79 yrs Sex: Male : 1945 Arrival Date: 11/20/2024 Time: 20:49 Bed 7 Private MD: Diagnosis: Post op bleeding Presentation: 11/20 21:05 Chief complaint: Patient states: HAD ANGIOPLASTY EARLIER TODAY AND APPROX 5PM FELT A dd2 POP AT RT GROIN SITE AND FELT BLOOD DOWN LEG. Coronavirus screen: At this time, the client does not indicate any symptoms associated with coronavirus-19. Ebola Screen: No symptoms or risks identified at this time. Initial Sepsis Screen: Does the patient meet any 2 criteria? No. Patient's initial sepsis screen is negative. Does the patient have a suspected source of infection? No. Patient's initial sepsis screen is negative. Risk Assessment: Do you want to hurt yourself or someone else? Patient reports no desire to harm self or others. Onset of symptoms was November 20, 2024 at 17:00. 21:05 Method Of Arrival: Ambulatory dd2 21:05 Acuity: KRISTEL 3 dd2 Triage Assessment: 21:07 General: Appears in no apparent distress. Behavior is calm, cooperative, appropriate dd2 for age. Pain: Denies pain. Derm: ANGIOPLASTY SITE RT GROIN. LARGE CLOT FORMED Reports BLEEDING FROM SITE. Historical: - Allergies: 21:07 No Known Allergies; dd2 - PMHx: 21:07 AFIB; ascites; chemotherapy; COPD; Diabetes - NIDDM; Hypertensive disorder; dd2 Hypothyroidism; throat cancer; - PSHx: 21:07 Cholecystectomy; DEFIB (Cholecystectomy); ANGIOPLASTY (Cholecystectomy); dd2 - Immunization history:: Adult Immunizations up to date. - Infectious Disease History:: Denies. - Social history:: Smoking status: Patient denies any tobacco usage or history of. Screenin:35 [facility] ED Fall Risk Assessment (Adult) History of falling in the last 3 months, ha1 including since admission No falls in past 3 months (0 pts) Confusion or Disorientation No (0 pts) Intoxicated or Sedated No (0 pts) Impaired Gait Yes (1 pt) Mobility Assist Device Used Yes (1 pt) Altered Elimination No (0 pt) Score/Fall Risk Level 3 or more points = High Risk Oriented to surroundings, Maintained a safe environment, Educated pt \T\ family on fall prevention, incl call for assistance when getting out of bed, Hourly rounding (assess needs \T\ fall precautionary measures) done. Abuse screen: Denies threats or abuse. Denies injuries from another. Nutritional screening: No deficits noted. Tuberculosis screening: No symptoms or risk factors identified. Assessment: 21:00 General: Appears comfortable, Behavior is calm, cooperative. Pain: Complains of pain in ha1 left femoral area Pain does not radiate. Pain currently is 4 out of 10 on a pain scale. Quality of pain is described as burning. Neuro: Level of Consciousness is awake, alert, obeys commands, Oriented to person, place, time, situation. Cardiovascular: Capillary refill < 3 seconds Patient's skin is warm and dry. Respiratory: Airway is patent Respiratory effort is even, unlabored, Respiratory pattern is regular, symmetrical. GI: Abdomen is round non-distended, obese. : POST SURGICAL INCISION AT INGUINAL AREA WITH DRESSING COVER WITH BLOOD AND A LARGE BLOOD CLOT. WOUND DRESSING CHANGED AND SAND BAG APPLIED. 21:00 Derm: Skin is pink, warm \T\ dry. Musculoskeletal: Circulation, motion, and sensation ha1 intact. Range of motion: intact in all extremities. 21:17 General: post surgical Tegaderm removed per provider. palm sized clot with steady lg3 stream of bleeding noted. clean 4x4's and 10lb sandbag applied to site. . 22:30 Reassessment: Patient and/or family updated on plan of care and expected duration. Pain ha1 level reassessed. Patient is alert, oriented x 3, equal unlabored respirations, skin warm/dry/pink. small drop of blood noticed on the 4x4 at wound site. 23:23 Reassessment: Patient appears in no apparent distress at this time. Patient and/or bm8 family updated on plan of care and expected duration. Pain level reassessed. Patient is alert, oriented x 3, equal unlabored respirations, skin warm/dry/pink. Redressed wound with Surgicel, 4 x 4' s' and a Tegaderm to hold in place. sarita wrap applied over Tegaderm to hold in place during movement and to help apply pressure to wound. At time of discharge bleeding has been controlled and was non existent. Patient denies pain at this time. Patient states feeling better. Patient states symptoms have improved. Vital Signs: 21:05 BP 126 / 72; Pulse 81; Resp 17; Temp 98.5; Pulse Ox 96% on R/A; Pain 0/10; dd2 21:36 BP 126 / 72; Pulse 80; Resp 17 S; Pulse Ox 97% on R/A; Weight 76.66 kg; ha1 22:30 BP 126 / 72; Pulse 82; Resp 17 S; Pulse Ox 99% on R/A; ha1 23:23 BP 126 / 72; Pulse 80; Resp 18; Temp 98.5; Pulse Ox 99% ; Pain 0/10; bm8 21:05 Pain Scale: Adult dd2 23:23 Pain Scale: Adult bm8 Blake Coma Score: 23:23 Eye Response: spontaneous(4). Motor Response: obeys commands(6). Verbal Response: bm8 oriented(5). Total: 15. ED Course: 20:53 Patient arrived in ED. gm2 20:54 Adam Warren DO is Attending Physician. ms3 21:00 Patient has correct armband on for positive identification. Placed in gown. Bed in low ha1 position. Call light in reach. Side rails up X2. Adult w/ patient. 21:07 Triage completed. dd2 21:07 Arm band placed on right wrist. dd2 21:16 PT-INR Sent. ha1 21:16 CBC with Diff Sent. ha1 21:16 Inserted saline lock: 22 gauge in right antecubital area, using aseptic technique. ha1 Blood collected. Flushed with 10 mL NS. 22:52 Trixie Rodrigues, RN is Primary Nurse. ha1 23:23 Provided Education on: post er care. Client placed on continuous cardiac and pulse bm8 oximetry monitoring. NIBP monitoring applied. Pulse ox on. NIBP on. Door closed. Noise minimized. Warm blanket given. Pillow given. Verbal reassurance given. 23:23 No provider procedures requiring assistance completed. Initial lab(s) drawn, by , bm8 sent to lab. IV discontinued, intact, bleeding controlled, No redness/swelling at site. Pressure dressing applied. Patient maintains SpO2 saturation greater than 95% on room air. Administered Medications: No medications were administered Medication: 21:37 VIS not applicable for this client. ha1 Outcome: 23:16 Discharge ordered by MD. ms3 23:23 Discharged to home via wheelchair, bm8 23:23 Condition: stable 23:23 Discharge instructions given to patient, family, Instructed on discharge instructions, follow up and referral plans. no drinking with medication, no driving heavy equipment, medication usage, Demonstrated understanding of instructions, follow-up care, medications, 23:30 Patient left the ED. bm8 Signatures: Evie Villalta, RN RN lg3 Adam Warren, DO DO ms3 Trixie Rodrigues, RN RN ha1 Debi Jasso gm2 Darron Gutierrez RN RN bm8 MARQUISE WASHINGTON RN RN dd2
[2024-11-21 01:40] VITALS: BP 126/72; TEMP 98.5
[2024-11-21 01:42] VITALS: O2SAT 99
== END 2024-11-20 23:30 | disposition home or self-care (01) ==
LOC: ER 20:49
DX: I97.618 Postprocedural hemorrhage of a circulatory system organ or structure following other circulatory system procedure (principal); Z98.61 Coronary angioplasty status
CPT/HCPCS: 36415; 85025; 85610; 99284